=== PATIENT | female | born 1950 | race Caucasian/White ===

== ENCOUNTER 2022-12-19 09:21 | Outpatient (OUT) | payer MEDICARE, SELFPAY ==
--- NOTE | 2022-12-19 09:44 | MM_ITS ---
Patient: YAO PATEL Exam Date: 12/19/2022 : 1950 Gender:F Ordering : DR. YAO GUAJARDO D.O. Admission #: [id number] Family : DR GERA GALEANO M.D. Order #: [id number] CLICK HERE TO VIEW EXAM RADIOLOGY REPORT PROCEDURE: MM TOMOSYNTHESIS SCREENING BI COMPARISON: MG MAMM SCREEN 3D SHARAD CAD, 12/07/2021. MG MAMM SCREEN 3D SHARAD CAD, 12/04/2020. MG MAMM SCREEN SHARAD W CAD, 12/02/2019. MG MAMM SCREEN SHARAD W CAD, 08/01/2010. INDICATIONS: Screening mammogram Z12.31 Calculator Name NCI Breast Cancer Risk Assessment Tool 5 Year Breast Cancer Risk 2.10% Lifetime Breast Cancer Risk 4.90% Personal Breast Cancer No Personal Ovarian Cancer No Treatments None Family Cancers Sister with uterine cancer at age ~60. LOCATION: [facility] BREAST COMPOSITION: Scattered areas fibroglandular density. FINDINGS: DIAGNOSTIC CATEGORY 1--NEGATIVE. RIGHT BREAST: No significant suspicious finding. No significant change has occurred. LEFT BREAST: No significant suspicious finding. No significant change has occurred. RECOMMENDATIONS: ROUTINE MAMMOGRAM AND CLINICAL EVALUATION IN 12 MONTHS. PLEASE NOTE: A NORMAL MAMMOGRAM DOES NOT EXCLUDE THE POSSIBILITY OF BREAST CANCER. A CLINICALLY SUSPICIOUS PALPABLE LUMP SHOULD BE BIOPSIED. Dictated by: Bryan Salguero M.D. on 12/19/2022 at 13:00 Approved by: Bryan Salguero M.D. on 12/19/2022 at 13:01
== END 2022-12-19 09:22 | disposition home or self-care (01) ==
PROVIDERS: PCP Internal Medicine; Visit Provider Obstetrics & Gynecology
DX: Z12.31 Encounter for screening mammogram for malignant neoplasm of breast (principal); Z80.49 Family history of malignant neoplasm of other genital organs
CPT/HCPCS: 77063; 77067

== ENCOUNTER 2022-12-19 09:29 | Outpatient (OUT) | payer MEDICARE, SELFPAY ==
--- NOTE | 2022-12-19 09:41 | MR_ITS ---
[address] [address] Patient Name: YAO PATEL MRN: [id number] date: 1950 Sex: F Assigned Patient Location: MRI Current Patient Location: UNIQUE Accession/Order Number: [id number] Exam Date: 12/19/2022 09:51 Report Date: 12/19/2022 11:58 At the request of: NON-STAFF PHYSICIAN Procedure: MR knee RT wo con EXAMINATION: MR knee RT wo con HISTORY: Internal derangement of right knee M23.91 COMPARISON: No relevant comparison available. TECHNIQUE: A complete multi-planar MRI was performed. 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 CARTILAGE: Diffuse thinning consistent without appreciable defect. BONES: Small periarticular degenerative osteophytes. No subchondral edema or lesion. MCL AND MEDIAL CAPSULE: Normal medial collateral ligament and medial capsule. LATERAL COMPARTMENT LATERAL MENISCUS: There is an undersurface tear involving the posterior horn of the lateral meniscus. CARTILAGE: Thinning with suspected focal defect posteriorly, adjacent the posterior horn meniscal tear. BONES: Several small areas of mild subchondral edema within the posterior aspect of the tibial plateau likely due to overlying cartilage defects. Mild edema within posterior aspect of lateral femoral condyle of uncertain etiology; possible bone bruising. Prominent degenerative osteophytes along the articular margins of the lateral compartment. LCL/POSTEROLAT COMPLEX: Normal lateral collateral ligament, fascicles, lateral capsule and ligaments. ANTERIOR COMPARTMENT PATELLA: Mild subchondral edema involving the medial facet. CARTILAGE: Thinning, but no focal defect. TENDONS: Normal. EFFUSION: Large joint effusion. ACL: Normal appearing ligament. PCL: Normal appearing ligament. MENISCOFEMORAL: Normal meniscofemoral ligaments. OTHER: Large Knutson's cyst. MR/MR knee RT wo con IMPRESSION: 1. Undersurface tear involving posterior horn of lateral meniscus. 2. Multiple small areas of subchondral edema involving lateral tibial plateau suspected to be secondary to overlying cartilage defects. 3. Mild edema within medial facet of patella and posterior aspect of lateral femoral condyle; nonspecific. Possibly sequela of impact injury and bone bruising. 4. Large joint effusion. 5. Large Knutson's cyst. Electronically authenticated by: SEBASTIAN MEEHAN Date: 12/19/2022 11:58
== END 2022-12-19 09:30 | disposition home or self-care (01) ==
LOC: MRI 09:31
PROVIDERS: PCP Internal Medicine
DX: M23.91 Unspecified internal derangement of right knee (principal); Z12.31 Encounter for screening mammogram for malignant neoplasm of breast; Z80.49 Family history of malignant neoplasm of other genital organs; M71.21 Synovial cyst of popliteal space [Baker], right knee
CPT/HCPCS: 73721; 77063; 77067

== ENCOUNTER 2023-08-19 13:15 | Outpatient (OUT) | payer MEDICARE, SELFPAY ==
--- NOTE | 2023-08-19 | CONS_ITS ---
CONSULTATION DATE: 08/19/2023 HISTORY: Her last encounter in the office was on 01/31/2022. She returns today complaining of pain in her hip area bilaterally. She describes it as 3-5/10 burning pain with a sharp component, increased with activities such as standing, walking and performing transitioning maneuvers. She feels most comfortable in the semi-recumbent position. She denies any change in bowel and bladder habits or new sensorimotor changes in the lower extremities. CURRENT MEDICATIONS: She has been using ibuprofen for at least the last eight weeks, with only marginal relief. She has also been using tizanidine 4 mg at h.s. p.r.n. Her ANGELLA on today?s visit was 18%. EXAMINATION: Notable for patient having no clinical radiculopathy or myelopathy involving the lower extremities. She did have dysesthesia and hyperesthesia overlying the distribution of the superior gluteal nerve, occurring bilaterally with associated myofascial spasm of the gluteus medius muscle occurring bilaterally as well. RECOMMENDATIONS: I recommend we proceed with diagnostic bilateral gluteal nerve injection under fluoroscopic guidance. I have gone over the details of the procedure with the patient. All her questions answered. She agrees to proceed with the outlined plan. As part of providing excellent, safe, comprehensive care, the following was completed at our patient's visit: 1. A medication reconciliation and review to ensure accurate knowledge of current/active medications, including asking our patients to inform us about any [id number] medications or herbal remedies/nutritional supplements/alternative remedies. 2. A review to specifically ensure our patients have had annual screening for: elevated body mass index (BMI, see intake chart for exact total), tobacco use, screening for depression, and screening for unhealthy alcohol use. When screening is concerning, patients are provided with education and the specific recommendation to discuss the concerning health issue and treatment options with their primary care provider. DANICA
== END 2023-08-19 13:16 | disposition home or self-care (01) ==
LOC: PM 13:15
PROVIDERS: PCP Internal Medicine; Visit Provider Anesthesiology Pain Medicine
DX: M25.551 Pain in right hip (principal); M25.552 Pain in left hip; M62.838 Other muscle spasm
CPT/HCPCS: G0463

== ENCOUNTER 2023-09-09 08:06 | Day surgery (SDC) | payer MEDICARE, SELFPAY ==
--- OUTSIDE RECORDS SUMMARY | 2023-09-09 08:25 | XMS_ITS | CCD ---
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 Name Role Phone UNKNOWN, PHYSICIAN Referring Unavailable UNKNOWN, PHYSICIAN Primary Care Unavailable CHRIS GARCIA V Admitting Unavailable MOUKARBEL CHRIS Richard Attending Unavailable Staci Esquivel Unavailable ABDIAS ., ASHTYN Admitting Unavailable ABDIAS ., ASHTYN Attending Unavailable ANNA ., THUY WU Consulting Unavailabl e GALEANO, DR BOSS Primary Care Unavailable KLIPPJESUS LUEVANO Consulting Unavailable DEVIN ., DR DARYL Juarez Attending Unavailable BELTRAN ., DR DARYL Juarez Admitting Unavailable FROYLAN, DR BOSS Primary Care Unavailable GALEANO, DR BOSS Consulting Unavailable ABELJULIO SHETTY Consulting Unavailable LAKSHMIPATHY, NARENDRANATH Admitting Unava ilable GALEANO, DR BOSS Primary Care Unavailable LAKSHMIPATHConnor, NARENDYAKOVATH Attending Unava ilable GALEANO, DR BOSS Admitting Unavailable GALEANO, DR BOSS Primary Care Unavailable GALEANO, DR BOSS Consulting Unavailable GALEANO, DR BOSS Attending Unavailable ZIEBER, DR BRYAN Castellon Consulting Unavailable GALEANO, DR BOSS Attending Unavailable GALEANO, DR BOSS Admitting Unavailable GALEANO, DR BOSS Primary Care Unavailable GALEANO, DR BOSS Consulting Unavailable NEFCYKAILEE Consulting Unavailable GALEANO, DR BOSS Attending Unavailable GALEANO, DR BOSS Admitting Unavailable GALEANO, DR BOSS Primary Care Unavailable GALEANO, DR BOSS Consulting Unavailable GALEANO, DR BOSS Admitting Unavailable MISC, DR BEEBE Consulting Unavailable GALEANO, DR BOSS Primary Care Unavailable GALEANO, DR BOSS Attending Unavailable DAVID LEMUS Attending Unavailable MOUKACHRIS DING Attending Unavailable LINDSEY RYAMUNDO Attending Unavailable GERA GALEANO Referring Unavailable APLSKYE HELTON Attending Unavailable CELSA MANZANARES Attending Unavailable APLSKYE HELTON Referring Unavailable EMIGDIO COURTNEY Attending Unavailable APLSKYE HELTON Attending Unavailable LINDSEY RAYMUNDO Attending Unavailable APLING, SKYE B Referring Unavailable Allergies Allergy Classification Reported Allergen(s) Allergy Type Date of Onset Reaction(s) Facility (1 source) oxyCODONE Drug Allergy [facility] Other (1 source) Sulfacetamide Drug Allergy neck swelled, [facility] [place] [facility] Other (2 sources) oxyCODONE Drug Allergy [facility] Repository (2 sources) Sulfonamides (Antibiotic) Drug allergy (disorder) [facility] Rep[facility] (1 source) Sulfonamides (Antibiotic); Translations: [SULFA (SULFONAMIDE ANTIBIOTICS)] Propensity to adverse reactions to drug (disorder) 12-26-19 [facility] Repository Medications Current Medications Medication Drug Class(es) Dates Sig (Normalized) Sig (Original) amoxicillin 875 mg / clavulanate 125 mg oral tablet (1 source) Penicillin-class Antibacterial Start: 02-08-2022 take 1 tablet by mouth every twelve hours Amoxicillin-Pot Clavulanate 875-125 MG 1 tablet Orally every 12 hrs for 10 day(s) Jan, Active Aspirin (1 source) Platelet Aggregation Inhibitor, Nonsteroidal Anti-inflammatory Drug Baby Aspirin Active fexofenadine (1 source) Histamine-1 Receptor Antagonist Carolin Active fluticasone (1 source) Corticosteroid Flonase Active Irbesartan-hydroCHL OROthiazide (1 source) Irbesartan-hydro C HLOROthiazide Active lifitegrast (1 source) Lymphocyte Function-Associated Antigen-1 Antagonist Xiidra Active Metoprolol (1 source) beta-Adrenergic Everett Toprol XL Active oxybutynin (1 source) Cholinergic Muscarinic Antagonist Oxybutynin Active predniSONE 20 mg oral tablet (1 source) Start: 02-08-2022 take 1 tablet by mouth every twelve hours predniSONE 20 MG 1 tablet Orally 2 times a day for 5 day(s) Jan, Active tiZANidine (1 source) Central alpha-2 Adrenergic Agonist tiZANidine HCl Active Problems Active Problems Problem Classification Problem Date Documented Date Episodic/Chronic Cardiac dysrhythmias (2 sources) Palpitations; Translations: [Palpitations] Onset: 08-30-2022 Episodic Essential hypertension (2 sources) Essential (primary) hypertension; Translations: [Essential (primary) hypertension] Onset: 02-25-2022 Chronic Menopausal disorders (4 sources) Other primary ovarian failure; Translations: [OTHER PRIMARY OVARIAN FAILURE] Onset: 12-07-2021 Chronic Other eye disorders (4 sources) Eyelid retraction left upper eyelid; Translations: [EYELID RETRACTION LEFT UPPER EYELID] Onset: 07-24-2022 Episodic Other eye disorders (1 source) Eyelid retraction right upper eyelid; Translations: [EYELID RETRACT RT UPPER EYELID] Onset: 08-02-2022 Episodic Other lower respiratory disease (1 source) Cough; Translations: [Cough] Episodic Other upper respiratory infections (1 source) Acute sinusitis, unspecified Episodic Screening and history of mental health and substance abuse codes (3 sources) Personal history of nicotine dependence; Translations: [PERSONAL HISTORY OF NICOTINE DEPEND] Onset: 04-09-2022 Episodic Spondylosis; intervertebral disc disorders; other back problems (4 sources) Other spondylosis with radiculopathy, lumbar region; Translations: [OTH SPONDYLS RADICULOPATHY LUMB RGN] Onset: 01-31-2022 Chronic Transient cerebral ischemia (4 sources) Transient cerebral ischemic attack, unspecified; Translations: [TRANS CERBRAL ISCHEMIC ATTACK UNS] Onset: 09-07-2021 Chronic Past or Other Problems Problem Classification Problem Date Documented Da te Episodic/Chronic E Codes: Cut/pierceb (1 source) Contact with knife, initial encounter; Translations: [CONTACT WITH KNIFE INITIAL ENC] Onset: 04-09-2022 Episodic Heart valve disorders (4 sources) Cardiac murmur, unspecified; Translations: [CARDIAC MURMUR UNSPECIFIED] Onset: 09-05-2021 Episodic Immunizations and screening for infectious disease (1 source) Encounter for immunization; Translations: [ENCOUNTER FOR IMMUNIZATION] Onset: 04-09-2022 Episodic Open wounds of extremities (4 sources) Laceration without foreign body of left middle finger without damage to nail, initial encounter; Translations: [LAC W/O FB LT MF W/O DMG NAIL INIT] Onset: 04-05-2022 Episodic Other aftercare (1 source) Other termite inspector (current) drug therapy; Translations: [OTH FCI CURRENT DRUG THERAPY] Onset: 04-09-2022 Episodic Other bone disease and musculoskeletal deformities (1 source) Other specified disorders of bone density and structure, unspecified site; Translations: [OTH D/O BONE DEN STRUCT UNS SITE] Onset: 12-11-2021 Episodic Other screening for suspected conditions (not mental disorders or infectious disease) (1 source) Encounter for screening mammogram for malignant neoplasm of breast; Translations: [ENC SCR MAMMO MALIG NEOPLASM BREAST] Onset: 12-11-2021 Episodic Residual codes; unclassified (1 source) Family history of malignant neoplasm of other genital organs; Translations: [FAM HX MALIG NEOPLSM OTH GENIT ORGN] Onset: 12-11-2021 Episodic Spondylosis; intervertebral disc disorders; other back problems (1 source) Intervertebral disc disorders with radiculopathy, lumbar region; Translations: [IV DISC D/O W/RADICULOPATHY LUMB] Onset: 02-02-2022 Episodic Unclassified (1 source) Cough R05.9 Results Test Name Value Interpretation Reference Range Facility Office Visiton 08-30-2022 Follow-up visit [id number] AbimbolaTeodora B 1950 F Date Provider Department Center 08/30/2022 DAVID RODRIGUEZ [facility] Family History Problem Relation Age of Onset Other Mother Hypertrophic cardiomyopathy Sister Stroke Sister Other Sister Hypertrophic cardiomyopathy Brother Family Status - Relation Status Age at Mother Sister Brother Level of Service:47475 [place] OFFICE/OUTPATIENT ESTABLISHED MOD MDM 30-39 MIN Reason for Visit and Comments: Hypertension [395380] Palpitations [118407] Normal [facility] FREE T3on 07-24-2022 FREE T3 2.66 pg/mlL Normal 2.18-3.98 [facility] Comment on above: Performed By: #### T SH, FT3 #### [facility] [address] [address] [address] Adolph Clinton FREE T4on 07-24-2022 Free T4 [Mass/Vol] 0.85 ng/dL Normal 0.76-1.46 [facility] Comment on above: Performed By: #### F T4 #### [facility] [address] [place] [address] Dr. Adolph Clinton TSHon 07-24-2022 TSH 2.124 uIU/mL Normal 0.358-3.740 [facility] Comment on above: Performed By: #### T SH, FT3 #### [facility] [address] [address] [address] Adolph Clinton XR FINGER MIN 2 VIEWSon 03-21 XR FINGER MIN 2 VIEWS EXAM: XR FINGER MIN 2 VIEWS HISTORY: Laceration of finger COMPARISON: None. TECHNIQUE: 2 views FINDINGS: IMPRESSION: Soft tissue irregularity of the distal aspect of the third digit most pronounced of volar. No fracture, dislocation, subluxation or osseous lesion. No visualized radiodense foreign body. Age-related changes of the third DIP joint. The visualized IP joints and metacarpophalangeal joints are unremarkable. Electronically authenticated by: JESUS FELIZ Date: 2022-04-05 19:19 Normal [facility] Follow-Upon 02-25-2022 Follow-Up [id number] Teodora Daily 1950 F Date Provider Department Center 02/25/2022 [facility] History Problem Relation Age of Onset Other Mother Hypertrophic cardiomyopathy Sister Stroke Sister Other Sister Hypertrophic cardiomyopathy Brother Family Status - Relation Status Age at Mother Sister Brother Level of Service:48295 [place] OFFICE/OUTPATIENT ESTABLISHED LOW MDM 20-29 MIN Reason for Visit and Comments: Hypertension [773457] Palpitations [178419] Normal [facility] COVID Quick Testingon 2021 Result Negative [employer] Other Quick Fluon 02-08-2022 FLUAV Ab CF (S) [Titer] Negative [employer] Other FLUBV Ab CF (S) [Titer] Negative [employer] Other Orders Onlyon 12-25-2021 Orders Only [id number] Teodora Daily 1950 F Date Provider Department Center 12/25/2021 ARSENIO BOSTON MATTHEW [facility] Family History Problem Relation Age of Onset Other Mother Hypertrophic cardiomyopathy Sister Stroke Sister Other Sister Hypertrophic cardiomyopathy Brother Family Status - Relation Status Age at Mother Sister Brother Normal [facility] MG MAMM SCREEN 3D SHARAD CADon 12-07-2021 MG MAMM SCREEN 3D SHARAD CAD Patient: TEODORA DAILY Exam Date: 12/07/2021 : 1950 Gender:F Ordering : DR GERA GALEANO M.D. Admission #: [id number] Family : DR. TEODORA GUAJARDO D.O. Order #: [id number] CLICK HERE TO VIEW EXAM RADIOLOGY REPORT PROCEDURE: MAMMOGRAM SCREENING 3D BILATERAL CAD COMPARISON: MG MAMM SCREEN 3D SHARAD CAD, 12/04/2020. MG MAMM SCREEN SHARAD W CAD, 12/02/2019. INDICATIONS: Screening mammography Calculator Name NCI Breast Cancer Risk Assessment Tool 5 Year Breast Cancer Risk 2.10% Lifetime Breast Cancer Risk 5.20% Personal Breast Cancer No Personal Ovarian Cancer No Treatments None Family Cancers Sister with uterine cancer at age 60. LOCATION: [facility] BREAST COMPOSITION: Scattered areas fibroglandular density. FINDINGS: DIAGNOSTIC CATEGORY 1--NEGATIVE. RIGHT BREAST: No significant suspicious finding. No significant change has occurred. LEFT BREAST: No significant suspicious finding. No significant change has occurred. RECOMMENDATIONS: ROUTINE MAMMOGRAM AND CLINICAL EVALUATION IN 12 MONTHS. PLEASE NOTE: A NORMAL MAMMOGRAM DOES NOT EXCLUDE THE POSSIBILITY OF BREAST CANCER. A CLINICALLY SUSPICIOUS PALPABLE LUMP SHOULD BE BIOPSIED. Dictated by: Bryan Salguero M.D. on 12/07/2021 at 12:10 Approved by: Bryan Salguero M.D. on 12/07/2021 at 12:13 [facility] XR DEXA BONE DENSITYon 12-07 XR DEXA BONE DENSITY EXAMINATION: XR DEXA BONE DENSITY, 12/07/2021 9:39 AM EDT HISTORY: Primary ovarian failure COMPARISON: None. TECHNIQUE: Dual-energy X-ray absorptiometry (DEXA) bone density study performed for the axial skeleton. FINDINGS: SPINE ANALYSIS: Average bone mineral density is 1.167 g/cm2. T-score (standard deviation relative to young adult mean): -0.3 . -0.1% change since prior study. HIP ANALYSIS: Lowest bone mineral density is within the right femoral neck, 0.26 g/cm2. T-score (standard deviation relative to young adult mean): -1.5 . +6.4% change since prior study. IMPRESSION: World [employer] Organization Classification: Osteopenia - Moderate Fracture Risk Electronically authenticated by: BRYAN SALGUERO Date: 2021-12-07 15:10 Normal [facility] MRI CARDIAC W WO CONTRASTon 10-16-2021 MRI CARDIAC W WO CONTRAST [facility] Department of Radiology [address] [place] [id number] ===== Patient Name: TEODORA DAILY : 1950 Sex: F Age: Race: White Pt. Location: 30 Patient Status: D Ordered Date: 09/25/2021 8:10:00 AM Completed Date: 10/16/2021 12:33 PM Requesting Provider: CHRIS GARCIA V Attending Provider: Report Copy To: Signs & Symptoms: I51.7 Cardiomegaly I10 History: Luz, L hip replacement Comments: Exam: MRI CARDIAC W WO CONTRAST ===== MRI CARDIAC W WO CONTRAST 10/16/2021 12:33 PM SIGNS AND SYMPTOMS: I51.7 Cardiomegaly I10 TECHNOLOGIST COMMENTS: cardiomegaly QUESTION FOR THE RADIOLOGIST: PROTOCOL: Additional images were performed in the following sequences: CONTRAST: Contrast: CLARISCAN .5mmol, 40 milliliter, Intravenous COMPARISON: No prior FINDINGS: Morphology: The heart is normal in size. Right ventricle, left ventricle, left atrium and right atrium appear in size. Anteroseptal wall left lateral ventricle measures 8 mm. Inferolateral left ventricle measures 9 mm. Mid ventricle end diastole. On the 4 chamber view there was an area of lateral wall of the right ventricular myocardium which is felt to be possibly suspicious for myocardial noncompaction. However, the left ventricle is nondilated demonstrates normal function, and non-compacted 2 compact myocardial ratio is less than 2. Right ventricle are anterior free wall measures 4 mm at the mid ventricle. No pericardial effusion. Function: Left ventricular ejection fraction is calculated to be 72.3%. End-diastolic volume 105.1 mL End systolic volume 29.1 mL Stroke volume 76.0 mL The visibly there is contractility of the left ventricular myocardium. Valves: Mitral valve leaflets appear normal in thickness no significant regurgitation. Aortic valve leaflets do not appear thickened. No definite aortic regurgitation or stenosis. Myocardial enhancement: No abnormal delayed myocardial enhancement Additional findings: No aortic aneurysm. IMPRESSION: * Normal left ejection fraction. Normal cardiac wall motion. * No evidence of delayed myocardial enhancement * On the 4 chamber view there was an area of lateral wall of the right ventricular myocardium which is felt to be possibly suspicious for myocardial noncompaction. However, the left ventricle is nondilated, demonstrates normal function, and non-compacted - compact myocardial ratio is less than 2. Electronically signed: Kane Solomon. Transcribed by: [email or web address], User Resident: Electronically Signed by: KANE SOLOMON @ 10/18/2021 02:11 PM Normal [facility] CREATININEon 09-07-2021 Creatinine [Mass/Vol] 0.77 mg/dL Normal 0.55-1.02 [facility] Comment on above: Performed By: #### C IDALIA #### [facility] [address] [place] [address] Dr. Adolph Clinton EGFR-AF JAPANESE >60 Normal >=60 [facility] Comment on above: Performed By: #### C IDALIA #### [facility] [address] [address] [address] Adolph Clinton EGFR-NON AF JAPANESE >60 Normal >=60 [facility] Comment on above: Performed By: #### C IDALIA #### [facility] [address] [place] [address] HEAD WO W CONon 2 CT HEAD WO W CON EXAMINATION: CT HEAD WO W CON HISTORY: Transient cerebral ischemia COMPARISON: None. TECHNIQUE: Multiple computed tomograms of the head were obtained with and without intravenous contrast enhancement. 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 Sagittal and coronal reconstructions were obtained. Dose reduction techniques were achieved by using automated exposure control and/or adjustment of mA and/or kV according to patient size and/or use of iterative reconstruction technique. FINDINGS: The ventricles are not enlarged, the lateral ventricles are symmetric and the third ventricles in the midline. The sylvian fissures and cortical sulci are unremarkable. There is no evidence of an intracranial hemorrhage, mass lesion or apparent acute infarct. Overall, no enhancing abnormality is identified. Benign calcification is seen in the pineal complex. Mild frontal hyperostosis is noted. The cerebellum and visualized brainstem are intact. Some mucosal thickening is seen in the right side of the sphenoid sinus with small air bubbles. The paranasal sinuses are otherwise relatively clear. There is no apparent skull fracture. The vasculature about the [place] appears grossly intact. IMPRESSION: There is no evidence of an intracranial hemorrhage, mass lesion or apparent acute infarct. No enhancing abnormality is identified. Benign calcifications are present. Frontal hyperostosis is noted. There is an element of acute sinusitis involving the right side of the sphenoid sinus. The sinuses are otherwise relatively clear throughout as visualized. Electronically authenticated by: KAILEE GARCIA Date: 2021-09-07 13:44 Normal [facility] ECHOCARDIO M/2D COMPLETEon 0 09-05-2021 ECHOCARDIO M/2D COMPLETE Patient: TEODORA DAILY Exam Date: 09/05/2021 : 1950 Gender:F Ordering : DR GERA GALEANO M.D. Admission #: [id number] Family : Order #: [id number] CLICK HERE TO VIEW EXAM ECHOCARDIOGRAM REPORT PROCEDURE: CARDIO PULMONARY ECHOCARDIO M/2D COMP INDICATIONS: Cardiac murmur, hypertension COMPARISON: None. DESCRIPTION: COMPLETE ECHOCARDIOGRAM Real-time transthoracic echocardiography with 2D, M-mode, spectral and color flow Doppler performed. QUALITY: Technical quality was adequate. LEFT VENTRICLE: Normal chamber size. Moderate concentric left ventricular hypertrophy. No regional wall motion abnormalities. There is flow acceleration in the outflow tract related to hyperdynamic contractility of the ventricle. LV EF: Hyperdynamic left ventricular ejection fraction, (75-80%). DIASTOLIC: Normal diastolic function. ATRIAL SEPTUM: Visually appears intact. LEFT ATRIUM: Normal chamber size. RIGHT ATRIUM: Normal chamber size. RIGHT VENTRICLE: Normal chamber size. Normal right ventricular systolic function. TRICUSPID VALVE: Normal mobility and thickness. No stenosis with trivial regurgitation. No evidence of pulmonary hypertension. RVSP is 23 mmHg MITRAL VALVE: Normal mobility and thickness. No evidence of mitral valve stenosis. Mild mitral annular calcification. No mitral regurgitation. AORTIC VALVE: Normal trileaflet appearance. Thickened aortic valve. Normal leaflet mobility. No evidence of aortic valve stenosis. No aortic regurgitation. AORTIC ROOT: Normal diameter and appearance. PULMONIC VALVE: Not well visualized. No stenosis. No regurgitation. PERICARDIUM: No evidence of pericardial effusion. IVC: Collapses with inspirations. IVC is normal in size. PLEURA: CONCLUSION: 1. Moderate concentric left ventricular hypertrophy with hyperdynamic systolic function. LVEF is 75 to 80%. There is acceleration of flow in the left ventricular outflow tract related to hyperdynamic contractility of the ventricle. 2. Normal right ventricular systolic function. 3. Normal diastolic function. 4. No significant valvular dysfunction. 5. No pericardial effusion. Adult Echocardiography Procedure Report Left Ventricle LVEDD (3.7 - 5.6 cm): 3.26 cm LVESD (2.2 - 4.0 cm): 2.32 cm LVIVS thickness (0.6 - 1.2 cm): 1.34 cm LVPW thickness (0.5 - 1.0 cm): 1.24 cm e': 10.10 cm/s E - e': 8.80 LVOT Area (cm2): 3.80 cm2 LVOT Diameter 2.20 cm Left Ventricular Ejection Fraction: 75-80 % Left Atrium LA Volume Index (2D A2C): 24.60 ml/m2 Left Atrium Systolic Dimension: 3.20 cm Left Atrium Systolic Area(A2C): 16.90 cm2 Left Atrium Systolic Area(A4C): 12.70 cm2 Left Atrium Systolic Volume(A2C): 19082 mm3 Left Atrium Systolic Volume(A4C): 72262 mm3 Mitral Valve MV E to A Ratio: 0.90 Mitral Valve A-Wave Peak Velocity: 102.00 cm/s Mitral Valve E-Wave Peak Velocity: 89.30 cm/s Deceleration Time: 267 ms Right Ventricle Aorta AO Root Diam: 3.40 cm Aortic Valve Peak Velocity (Antegrade Flow): 183.00 cm/s AoV Area (Peak Michael): 2.90 cm2 AoV Area (VTI): 3.20 cm2 Peak Velocity(Antegrade Flow): 185.00 cm/s Peak Gradient(Antegrade Flow): 14 mm[Hg] Mean Velocity(Antegrade Flow): 127.00 cm/s Mean Gradient(Antegrade Flow): 7 mm[Hg], 7 mm[Hg] Velocity Time Integral: 38.50 cm Tricuspid Valve Pulmonic Valve Peak Velocity: 85.80 cm/s Peak Gradient: 3 mm[Hg] Right Atrium Dictated by: Chris Garcia M.D. on 09/05/2021 at 20:04 Approved by: Chris Garcia M.D. on 09/05/2021 at 20:08 Normal [facility] Q - DEJUAN SCREEN IFA W/RFL TIT ER IFAon 05-10-2021 DEJUAN SCREEN, IFA Negative Normal NEGATIVE [facility] Comment on above: Order Comment: [facility] Testing performed at: [facility], [employer] [facility], [address] [place] [address], [address] [place] [address], [id number], Drafter Electronic: Pedro Asencio MD [facility] Collection Date/Time: [facility] Results Received Date/Time: [facility] Reported Date/Time: Result Comment: DEJUAN IFA is a first line screen for detecting the presence of up to approximately 150 autoantibodies in various autoimmune diseases. A negative DEJUAN IFA result suggests an DEJUAN-associated autoimmune disease is not present at this time, but is not definitive. If there is high clinical suspicion for Sjogren's syndrome, testing for anti-SS-A/Ro antibody should be considered. Anti-Steffi-1 antibody should be considered for clinically suspected inflammatory myopathies. AC-0: Negative International Consensus on DEJUAN Patterns (https://doi.org/10.1515/ksra-8928-2625) For additional information, please refer to http://education.AskYou.Extenda-Dent/faq/XLD365 (This link is being provided for informational/ educational purposes only.) Performed By: #### 7 [id number], [id number] #### [facility] [address] [place] [address] Q - SJOGREN'S ABS (SS-A,SS-B )on 01-20-2022 SJOGREN'S ANTIBODY (SS-A) <1.0 NEG Normal <1.0 NEG [facility] [employer] Comment on above: Order Comment: [facility] Testing performed at: [employer] [facility], [address] [place] [address], [address] [place] [address], [address] [place] [address], Drafter Electronic: Pedro Asencio MD [facility] Collection Date/Time: [facility] Results Received Date/Time: [facility] Reported Date/Time: Performed By: #### 7 [id number], 249X #### [facility] [address] [place] [address] SJOGREN'S ANTIBODY (SS-B) <1.0 NEG Normal <1.0 NEG [facility] [employer] Comment on above: Order Comment: [facility] Testing performed at: [employer] [facility], [address] [place] [address], [address] [place] [address], [address] [place] [address], Drafter Electronic: Pedro Asencio MD [facility] Collection Date/Time: [facility] Results Received Date/Time: [facility] Reported Date/Time: Performed By: #### 7 [id number], [id number] #### [facility] [address] [place] [address] Q - DEJUAN CASC [id number] CHROMATIN (NUCLEOSOMAL) ANTIBODY <1.0 NEG Normal <1.0 NEG [facility] [employer] Comment on above: Order Comment: [facility] Testing performed at: [employer] [facility], [address] [place] [address], [address] [place] [address], [address] [place] [address], Drafter Electronic: Pedro Asencio MD [facility] Date/Time: [id number] [facility] Results Received Date/Time: [facility] Reported Date/Time: Result Comment: ANTIBODY PREVALENCE IN TIER 1 Double stranded DNA (dsDNA) antibodies are present in 57% to 62% systemic lupus erythematosus (SLE), 10% to 43% polymyositis, 11% to 20% Sjogren's syndrome, 8% systemic sclerosis (scleroderma) and 0% to 8% mixed connective tissue disease (MCTD). Chromatin antibody is present in >80% MCTD, 37% to 73% SLE, 14% systemic sclerosis, 12% Sjogren's syndrome and 8% polymyositis. Ribonucleoprotein (NEEDLEWORKER) antibodies are to NEEDLEWORKER A and/or NEEDLEWORKER 68kD proteins; antibodies to one or both are present in >80% MCTD, 22% to 48% SLE, 14% systemic sclerosis, 12% Sjogren's and 8% polymyositis. Sm/NEEDLEWORKER antibodies are directed to epitopes formed in a complex of Sm and NEEDLEWORKER; antibodies to the Sm/NEEDLEWORKER complex are present in 54% to 94% MCTD, 30% SLE, 4% systemic sclerosis, and 9% Sjogren's and polymyositis. Sm antibody is present in 20% to 30% SLE, 8% MCTD, 10% polymyositis, 0% systemic sclerosis and 4% Sjogren's syndrome. Double stranded DNA, Chromatin, Ribonucleoprotein, Sm/NEEDLEWORKER complex and Sm antibodies are present in <2% of normal blood donors. The [place] does not rule out autoimmune disease characterized by other autoantibody specificities such as rheumatoid arthritis, autoimmune hepatitis, primary biliary cholangitis, autoimmune thyroiditis, Kendall's disease, pernicious anemia, autoimmune neuropathies, vasculitis, celiac disease and bullous disease. Please contact your local [facility] if you are interested in additional testing. Performed By: #### % IN7, % #### [facility] Default [address] [place] [address] DNA (DS) ANTIBODY <1 Normal [facility] Comment on above: Order Comment: [facility] Testing performed at: [facility], [address] [place] [address], [address] [place], [phone], Drafter Electronic: Pedro Asencio MD [facility] Date/Time: [id number] [facility] Results Received Date/Time: [facility] Reported Date/Time: Result Comment: IU/m L Interpretation < or = 4 Negative 5-9 Indeterminate > or = 10 Positive Performed By: #### % IN7, % #### [facility] [address] [place] [address] NEEDLEWORKER ANTIBODY 1.0 POS Abnormal <1.0 NEG [facility] [employer] Comment on above: Order Comment: [facility] Testing performed at: [facility], [facility], [address] [place] [address], [address] [place] [address], [address] [place] [address], Drafter Electronic: Pedro Asencio MD [facility] Date/Time: [facility] Results Received Date/Time: [facility] Reported Date/Time: Performed By: #### % IN7, % #### [facility] [address] [place] [address] SM ANTIBODY <1.0 NEG Normal <1.0 NEG [facility] [employer] Comment on above: Order Comment: [facility] Testing performed at: [employer] [facility], [address] [place] [address], [address] [place] [address], [address] [place] [address], Drafter Electronic: Pedro Asencio MD [facility] Date/Time: [facility] Results Received Date/Time: [facility] Reported Date/Time: Performed By: #### % IN7, % #### [facility] [address] [place] [address] SM/NEEDLEWORKER ANTIBODY <1.0 NEG Normal <1.0 NEG [facility] [employer] Comment on above: Order Comment: [facility] Testing performed at: [employer] [facility], [address] [place] [address], [address] [place] [address], [address] [place] [address], Drafter Electronic: Pedro Asencio MD [facility] Date/Time: [facility] Results Received Date/Time: [facility] Reported Date/Time: Performed By: #### % IN7, % #### [facility] [address] [place] [address] Q - DEJUAN MULTIPLEX W/ REFLEX TO 11 ANTIBODY CASCADEon 05-01-2021 ANACHOICE(R) SCREEN Positive Abnormal NEGATIVE [facility] [employer] Comment on above: Order Comment: [facility] performed at: [employer] [facility], [address] , [address] [place] [address], [phone], Drafter Electronic: Pedro Asencio MD [facility] Date/Time: [facility] Results Received Date/Time: [facility] Reported Date/Time: Result Comment: A po sitive DEJUAN, Multiplex reflexes to the 3 Tiered Multiplex 11 Antibody [place]. Testing in the [place] stops at the first positive result and does not preclude additional positive results. Further laboratory testing may be considered if clinically indicated. For additional information, please refer to http://education.[employer]/faq/EHX276 (This link is being provided for informational/ educational purposes only.) Performed By: #### % IN7, % #### [facility] [address] [place] [address] Q - NEEDLEWORKER INTERPon 05-01-2021 INTERPRETATION SEE NOTE Normal [facility] [employer] Comment on above: Order Comment: [facility] Testing performed at: [facility], [facility], [address] , [address] [place] [address], [phone], Drafter Electronic: Pedro Asencio MD [facility] Date/Time: [facility] Results Received Date/Time: [facility] Reported Date/Time: Result Comment: NEEDLEWORKER antibody is found in patients with mixed connective tissue disease in high titer. This antibody may also be seen in systemic lupus erythematosus and other connective tissue diseases. A positive result at this stage of testing stops further testing, and does not preclude additional positive antibodies. Clinical correlation is required to assess the need for testing additional analytes. Performed By: #### % IN7, % #### [facility] [address] [place] [address] Vital Signs Date Time Vital Sign Value Performing Clinician Facility 02-08-2022 13:05-0400 Body height 158.75 cm Staci Esquivel Other [facility] Other 02-08-2022 13:05-0400 Body mass index (BMI) [Ratio] 33.29 kg/m2 Staci Esquivel Other [facility] Other 02-08-2022 13:05-0400 Body temperature 101 [degF] Staci Esquivel Other [facility] Other 02-08-2022 13:05-0400 Body weight 83.92 kg Staci Esquivel Other [facility] Other 02-08-2022 13:05-0400 Respiratory rate 18 /min Staci Esquivel Other [facility] Other 02-08-2022 13:05-0400 SaO2% (BldA) [Mass fraction] 95 % Staci Esquivel Other [facility] Other Encounters Encounter Date Encounter Type Care Provider Facility Start: 08-20-2023 End: 08-21-2023 ambulatory SKYE Lopez [facility] Not Available Start: 07-14-2023 End: 07-14-2023 ambulatory EMIGDIO COURTNEY Not Available Start: 06-09-2023 End: 06-10-2023 ambulatory SKYE B APLING Not Available Start: 05-19-2023 End: 05-19-2023 ambulatory LINDSEY H TIMMIS Not Available Start: 03-19-2023 End: 03-19-2023 ambulatory LINDSEY H TIMMIS Not Available Start: 03-18-2023 End: 03-18-2023 ambulatory CELSA MANZANARES Not Available Start: 08-30-2022 End: 08-30-2022 ambulatory DAVID LEMUS [facility] Start: 07-24-2022 End: 07-25-[address] GERA GALEANO Facility:[facility] Start: 06-25-2022 ambulatory OVIDIO LANDRUM Facility:[facility] Start: 04-05-2022 End: 04-05-2022 ambulatory ASHTYN Rutledge Facility:[facility] Start: 02-25-2022 End: 02-25-2022 ambulatory [facility] Start: 02-08-2022 End: 02-08-2022 ambulatory Staci Esquivel Other [facility] Other Start: 02-08-2022 Office outpatient ne w 20 minutes Staci Esquivel [facility] Start: 01-31-2022 End: 02-01-[address] DARYL BELTRAN . Facility:[facility] Start: 12-07-2021 End: 12-08-[address] GERA GALEANO Facility:[facility] Start: 10-16-2021 End: 10-17-2021 ambulatory PHYSICIAN UNKNOWN Facility:[facility] Start: 09-07-2021 End: 09-08-[address] GERA GALEANO Facility:[facility] Start: 09-05-2021 End: 09-06-[address] GERA GALEANO Facility:[facility] Payers Date Payer Category Payer Private Health Insurance [id number] 1950 Unknown [id number] 2.16.8 [id number] 1950 Unknown [id number] 2.16.84 [id number] 1950 Unknown [id number] 2.16.84 0.1.841607.3.579.2.593 1948 Unknown [id number] 2.16.84 0.1.106027.3.579.2.593 1948 Unknown [id number] 2.16.84 0.1.376872.3.579.2.593 1948 Unknown [id number] 2.16.84 0.1.742060.3.579.2.593 1948 Unknown [id number] 2.16.84 0.1.898524.3.579.2.593 1948 Unknown [id number] 2.16.84 0.1.872420.3.579.2.593 1948 Unknown [id number] 2.16.84 0.1.377635.3.579.2.1258 1948 Unknown [id number] 2.16.84 0.1.877066.3.579.2.1258 1948 Unknown [id number] 2.16.84 0.1.138402.3.579.2.1258 1948 Unknown [id number] 2.16.84 0.1.813671.3.579.2.1258 1948 Unknown [id number] 2.16.84 0.1.185429.3.579.2.1258 1948 Unknown [id number] 2.16.84 0.1.482311.3.579.2.1258 1948 Unknown [id number] 2.16.840 .1.483313.3.579.2.1258 1948 Unknown [id number] 2.16.840 .[id number] Social History Date Type Detail Facility Sex Assigned At [facility] Other Progress note 08-30-2022 Note Date & Type Note Facility 08-30-2022 Note Hypertension is 127/ 72 on repeat b/p per provider- and well controlled. Continue irbesartan 75 mg daily and metoprolol 25 daily States that with 150 mg irbesartan dropped her b/p in the mornings to SBP 60 [facility] Progress note 08-30-2022 Note Date & Type Note Facility 08-30-2022 Note stable [facility] Progress note 08-30-2022 Note Date & Type Note Facility 08-30-2022 Note Continue metoprolol Stable and pt without c/o palpitations [facility] Progress note 08-30-2022 Note Date & Type Note Facility 08-30-2022 Note Patient here for 6 m o follow up hypertension and palpitations. Her social media analyst suggested she stop the hydrochlorothiazide due to dry eye. So she is now taking irbesartan by itself. Denies chest pain and palpitations. SCHOFIELD remains unchanged. Review of Systems Cardiovascular: Positive for dyspnea on exertion and leg swelling (intermittent). Musculoskeletal: Positive for back pain. All other systems reviewed and are negative. [facility] Progress note 08-30-2022 Note Date & Type Note Facility 08-30-2022 Note [facility] PROGR ESS NOTE HPI: Teodora Daily is a 72 y.o. female here for routine f/U for HTN and palpitations. Recently PCP stopped hydrochlorothiazide per opthamologist request r/t Dry eyes, and irbesartan was decreased in half to 75mg daily r/t hypotension. States that this week she has seen 3 different providers and each visit b/p was 130/80 or less. Review of Systems Constitutional: Negative. Respiratory: Negative. Cardiovascular: Negative. Neurological: Negative. All other systems reviewed and are negative. Visit Vitals BP 147/74 (BP Location: Left arm, Patient Position: Sitting) Pulse 64 Ht 1.6 m (5' 3 ) Wt 85.3 kg (188 lb) SpO2 94% BMI 33.30 kg/m??? Smoking Status Former BSA 1.95 m??? Allergies Allergen Reactions Sulfa (Sulfonamide Antibiotics) Medications: Current Outpatient Medications on File Prior to Visit Medication Sig Dispense Refill aspirin 81 mg chewable tablet Chew 1 tablet twice a day by oral route. irbesartan (Avapro) 150 mg tablet Take 75 mg by mouth in the morning. metoprolol succinate XL (Toprol-XL) 25 mg 24 hr tablet Take 1 tablet by mouth in the morning. tiZANidine (Zanaflex) 4 mg tablet TAKE 1 TABLET BY MOUTH EVERYDAY AT BEDTIME NEEDED [DISCONTINUED] irbesartan-hydrochlorothiazide (Avalide) 150-12.5 mg tablet Take 0.5 tablets every day by oral route for 90 days. [DISCONTINUED] oxybutynin XL (Ditropan-XL) 5 mg 24 hr tablet Take 1 tablet by mouth in the morning. No current facility-administered medications on file prior to visit. Physical Exam: Constitutional: Appearance: Normal appearance. Without apparent distress, obese HENT: Head: Normocephalic and atraumatic. Nose: Nose normal. Mouth/Throat: Mouth: Mucous membranes are moist. Eyes: Extraocular Movements: Extraocular movements intact. Conjunctiva/sclera: Conjunctivae normal. Neck: Vascular: No JVD. Cardiovascular: Rate and Rhythm: Normal rate and regular rhythm. Pulses: Dorsalis pedis pulses are 3 on the right side and 3on the left side. Posterior tibial pulses are 3 on the right side and 3 on the left side. Heart sounds: Normal heart sounds, S1 normal and S2 normal. Pulmonary: Effort: Pulmonary effort is normal. Breath sounds: Normal breath sounds. Abdominal: General: Bowel sounds are normal. Palpations: Abdomen is soft. Musculoskeletal: General: Normal range of motion. Cervical back: Normal range of motion. Right lower leg: No edema. Left lower leg: No edema. Skin: General: Skin is warm and dry. Capillary Refill: Capillary refill takes less than 2 seconds. Neurological: General: No focal deficit present. Mental Status: She is alert and oriented to person, place, and time. Psychiatric: Mood and Affect: Mood normal. Behavior: Behavior normal. Thought Content: Thought content normal. Judgment: Judgment normal. Labs: Reviewed 08/22/22 Renal function normal Liver function normal TSH normal Chol- 181, HDL 55, Trig 219, LDL 94- stabls Last lab values have been reviewed CV Testing: No echocardiogram results found for the past 12 months Assessment/Plan: Intermittent palpitations Continue metoprolol Stable and pt without c/o palpitations Former smoker stable Primary hypertension Hypertension is 127/72 on repeat b/p per provider- and well controlled. Continue irbesartan 75 mg daily and metoprolol 25 daily States that with 150 mg irbesartan dropped her b/p in the mornings to SBP 60 RTC 1 year or earlier if needed [facility] Progress note 02-25-2022 Note Date & Type Note Facility 02-25-2022 Note Patient here for fol [facility] up cardiac MRI, event monitor, and genetic testing. Has not noticed palpitations since starting metoprolol. Denies chest pain. Been dealing with sinus infection lately. Cliff Daily is a 72 y.o. year old female patient being seen for Hypertension and Palpitations Patient Active Problem List Diagnosis Primary hypertension Palpitations Social History Tobacco Use Smoking status: Former Types: Cigarettes Smokeless tobacco: Never HPI Teodora is seen in follow up. She was seen initially on 09/24/2021 as a new patient, referred from Dr. Goodman's office due to abnormal echocardiogram. She has prior history of mild hypertension, currently on irbesartan hydrochlorothiazide half tablet twice daily. She has a history of possible hypertrophic cardiomyopathy and her family history is significant for cardiomyopathy. 2 of her sisters were diagnosed with IHSS years ago and had pacemakers. One of them is . She has a nephew that has a pacemaker/ICD. She has shortness of breath on exertion, NYHA class II-III. No angina. She has occasional palpitations. She has not had syncope. In 2013 she underwent a cardiac MRI was reportedly showing some hypertrophy but no other significant findings. Her recent echocardiogram showed a hyperdynamic LV systolic function with moderate concentric hypertrophy and acceleration of flow in the left ventricular outflow tract. I then proceeded with the following investigation: A 3day Holter monitor that showed a short run of atrial tachycardia following which an event monitor was done for 30 days showing no significant arrhythmias. Cardiac MRI was performed but did not show any hypertrophy. There was possible suspicion of noncompaction in a small segment of the heart however it did not reach criteria. Genetic testing did not show any significant genetic abnormality that is suggestive of hypertrophic cardiomyopathy. 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 Today she reports that she has been feeling better on added metoprolol. She has good blood pressure usually but her blood pressure is mildly elevated today. She says that this is unusual for her. she denies chest pain, she has mild shortness of breath on exertion, she denies palpitations, dizziness, syncope and leg edemia. she has good exercise tolerance. There is no claudication. Review of Systems Cardiovascular: Positive for dyspnea on exertion. Objective Visit Vitals BP (P) 153/83 (BP Location: Left arm, Patient Position: Sitting) Pulse 61 Ht 1.6 m (5' 3 ) Wt 83.9 kg (185 lb) SpO2 96% BMI 32.77 kg/m??? Smoking Status Former BSA 1.93 m??? Physical Exam Constitutional: Appearance: She is well-developed. She is not ill-appearing. HENT: Head: Normocephalic and atraumatic. Nose: Nose normal. Eyes: General: No scleral icterus. Pupils: Pupils are equal, round, and reactive to light. Neck: Thyroid: No thyromegaly. Vascular: No JVD. Cardiovascular: Rate and Rhythm: Normal rate and regular rhythm. Heart sounds: Normal heart sounds. No murmur heard. No friction rub. No gallop. Pulmonary: Effort: Pulmonary effort is normal. No respiratory distress. Breath sounds: Normal breath sounds. No wheezing or rales. Chest: Chest wall: No tenderness. Abdominal: General: Bowel sounds are normal. There is no distension. Palpations: Abdomen is soft. Tenderness: There is no abdominal tenderness. Musculoskeletal: General: No swelling. Cervical back: Neck supple. Skin: General: Skin is warm and dry. Neurological: General: No focal deficit present. Mental Status: She is alert and oriented to person, place, and time. Psychiatric: Mood and Affect: Mood normal. Behavior: Behavior is cooperative. Judgment: Judgment normal. Allergies Allergies Allergen Reactions Sulfa (Sulfonamide Antibiotics) Medications Current Outpatient Medications: aspirin 81 mg chewable tablet, Chew 1 tablet twice a day by oral route., Disp: , Rfl: irbesartan-hydrochlorothiazide (Avalide) 150-12.5 mg tablet, Take 0.5 tablets every day by oral route for 90 days., Disp: , Rfl: metoprolol succinate XL (Toprol-XL) 25 mg 24 hr tablet, Take 1 tablet by mouth in the morning., Disp: , Rfl: oxybutynin XL (Ditropan-XL) 5 mg 24 hr tablet, Take 1 tablet by mouth in the morning., Disp: , Rfl: tiZANidine (Zanaflex) 4 mg tablet, TAKE 1 TABLET BY MOUTH EVERYDAY AT BEDTIME NEEDED, Disp: , Rfl: Recent Labs No results found for any previous visit. Imaging and other tests Echocardiogram 09/05/2021: Moderate concentric LV hypertrophy with hyperdynamic systolic function. LVEF is 75 to 80%. There is acceleration of flow in the left ventricular outflow tract related to hyperdynamic contractility of the ventricle. Normal right ventricular systolic function. Normal diastolic function. No significant valvular dys (more content not included)... [facility] Evaluation note 02-08-2022 Note Date & Type Note Facility 02-08-2022 Evaluation note Encounter Date Diagnosis Assessment Notes Jan, Cough (ICD-10 - R05.9) Jan, Acute sinusitis, recurrence not specified, unspecified location (ICD-10 - J01.90) Sinusitis home care material was printed, Sinusitis home care material was printed Drink plenty fluids get plenty of rest. Take the amoxicillin clavulanate as well as prednisone as prescribed until gone. Use your Flonase inhaler. Continue home medications as prescribed. Follow-up with your family physician if no improvement in 2 to 3 days [facility] Other Consultation note 01-31-2022 Note Date & Type Note Facility 01-31-2022 Note CONSULTATION CONSULTATION DATE: 01/31/2022 HISTORY OF PRESENT ILLNESS: This is a very pleasant and active, 72-year-old female who is returning to the clinic for a seven month follow up. She historically has chronic lower back pain and most recent procedure was in 03/2021 which was a lumbar epidural steroid injection. She did have radiofrequency ablations back in 2018 and 2019. She reports no pain today and feels that overall she is doing very well. She is taking tizanidine 4 mg q.h.s. and is requesting a refill today. She is busy at home, currently caring for her , who is status post shoulder surgery. She is very cognizant of her physical activity and knows when not to overdo it. Activities such as vacuum, sweeping, mopping, twisting, pushing and turning aggravate her pain. She alternates heat and ice which does decrease her pain. In addition to her tizanidine, she is on a multivitamin regimen and will take ibuprofen on a p.r.n. basis. She is currently wearing a Holter monitor for three days due to a family history of cardiomyopathy. She denies any new pain pattern and has just episodic hypoesthesia to her right lower leg to the level of the ankle. Patient's REVIEW OF SYSTEMS / PAST MEDICAL HISTORY / ALLERGIES and IMAGES have been reviewed and they are noted on the chart. PHYSICAL EXAM: VITAL SIGNS: Blood pressure 126/78, heart rate is 64. Temperature is 97.7. She is 5'2 and weighs 186 pounds. GENERAL APPEARANCE: Pleasant, appropriate, no acute distress. FOCUSED EXAM - BACK: Range of motion is functional in lateral rotation and flexion/extension. Paravertebral muscles are non-spasmodic. No spinal axial pain upon compression of the lower lumbar facets. Azalia's point mildly tender to the right with no referred pain to the hips. FABERs and compression tests are negative. MUSCULOSKELETAL: Motor is intact, 4/5 bilaterally. Walks with a stable and steady gait. Muscle tone is adequate. NEUROLOGICAL: Patchy hypoesthesia noted along L4-5 dermatome to the level of the ankle. Radicular sensory is intact, +2 bilaterally. Patient is cognitively intact. DIAGNOSIS: Lumbar radiculitis, lumbar degenerative disc disease and lumbar spondylosis. PLAN: Refill for her tizanidine 4 mg q.h.s. was given to the patient. She is encouraged to continue with her vitamin regimen, heat, stretches and increase her daily activity as tolerated. The patient will return to the clinic on a p.r.n. basis at the patient's discretion. [facility] History general Narrative - Reported Note Date & Type Note Facility History general Narrative - Reported Type Medical History osteoporosis Medical History herniated disc Medical History hypertrophic cardiomyopathy Surgical History Hip Replacement 2017 [facility] Other Summary Purpose Family History No Family History Records FoundNo Family History Records FoundNo Family History Records FoundNo Family History Records FoundNo Family History Records Found Advance Directives No Advanced Directives Records FoundNo Advanced Directives Records FoundNo Advanced Directives Records FoundNo Advanced Directives Records FoundNo Advanced Directives Records Found Additional Source Comments INFORMATION SOURCE (unrecogn ized section and content) DATE CREATED AUTHOR 05/13/2021 [facility] Specialist DATE CREATED AUTHOR AUTHOR'S ORGANIZ ATION 10/23/2021 [facility] DATE CREATED AUTHOR AUTHOR'S ORGANIZ ATION 08/03/2022 [facility] DATE CREATED AUTHOR AUTHOR'S ORGANIZ ATION 08/31/2022 [facility] DATE CREATED AUTHOR AUTHOR'S ORGANIZ ATION 08/24/2023 [facility] dical Specialists EPIC REASON FOR VISIT (unrecogniz ed section and content) CONGESTION, H/A FOR RECORDS PERTAINING TO PATIENTS WHO ARE OR HAVE BEEN ENROLLED IN A CHEMICAL DEPENDENCY/SUBSTANCEABUSE PROGRAM, SOME INFORMATION MAY BE OMITTED. This clinical summary was aggregated from multiple sources. Caution should be exercised in using it in the provision of clinical care. This summary normalizes information from multiple sources, and as a consequence, information in this document may materially change the coding, format and clinical context of patient data. In addition, data may be omitted in some cases. CLINICAL DECISIONS SHOULD BE BASED ON THE PRIMARY CLINICAL RECORDS. [employer] provides no warranty or guarantee of the accuracy or completeness of information in this document.
[2023-09-09 08:38] VITALS: TEMP 36.2
[2023-09-09 08:44] VITALS: BP 154/87; PULSE 77; TEMP 36.2; O2SAT 93
[2023-09-09 09:34] VITALS: BP 156/73; BP 159/79; PULSE 70; PULSE 76; O2SAT 95; O2SAT 96
[2023-09-09] MEDS: BUPIVACAINE HCL 0.25% PF 25 MG/10 ML VIAL 4 ML INJ (09:37)
--- NOTE | 2023-09-09 10:08 | W.PM.PROCNOT ---
Date of procedure: 09/09/23 Pre-op diagnosis: bilateral superior gluteal neurtitis Post-op diagnosis: same as pre-op Procedure: Bilateral Superior gluteal nerve block, diagnostic Performed under fluoroscopic guidance Immediate complications none Anesthesia: none Solution used for injection: In each syringe, 2 milliliters 0.25% Marcaine 2.5 mL is used for injection for each side Time out process compliant After informed consent obtained patient was brought to the procedure room placed in the prone position skin overlying the area was prepped and draped in a sterile fashion using betadine. 25 gauge spinal needle Insert over each of the target areas identified in fluoroscopy corresponding needles were advanced Under fluoroscopic guidance until the target/targets encountered, no indication of intravascular or Intraneuronal needle tip placement. Solution injected.needles removed post procedurally. patient transferred to recovery room in stable condition to be discharged home after meeting criteria Anesthesia: Local Surgeon: Marion Abraham Condition: stable
== END 2023-09-09 09:41 | disposition home or self-care (01) ==
LOC: SURGOUT 08:07
PROVIDERS: PCP Internal Medicine; Visit Provider Anesthesiology Pain Medicine
DX: G57.83 Other specified mononeuropathies of bilateral lower limbs (principal)
CPT/HCPCS: 64450

== ENCOUNTER 2023-09-18 10:50 | Outpatient (OUT) | payer MEDICARE, SELFPAY ==
--- NOTE | 2023-09-18 10:54 | PM.CN ---
Consult Note: HPI Data of Consult Patient: known to practice within the last 3 years Requesting Physician: Mariaelena Romano NP Primary Care Provider: GERA GALEANO Consult Narrative Reason for consult: f/u Narrative: Teodora Daily a pleasant 73 year old female presents for evaluation and management of chronic pain. At last visit with Dr Abraham her main complaint was bilateral posterior hips and low back, therefore he recommended bilateral superior gluteal nerve block with >80% improvement in pain and functional ability. She noticed improvement in ability to ambulate and walk distances with less pain, as well as improvement in getting in and out of the car. Patient was also referred by orthopedics for evaluation and management of right knee OA, as she has failed to benefit from steroid based injections and is looking to avoid surgical intervention at this time. Pain today in low back and right knee 5/10, increasing to 8/10 with stairs, walking, standing, driving. Pain improved with sitting. Patient has failed to benefit from tylenol and motrin greater than 6 weeks. cc:: CC: Mariaelena Romano NP Review of Systems ROS Status of ROS 10 or more systems reviewed and unremarkable except as noted in history and below Musculoskeletal Reports: back pain and joint pain PFSH PFSH Medical History Osteoarthritis ?M19.90 - Unspecified osteoarthritis, unspecified site (ICD-10) Carpal tunnel syndrome ?G56.00 - Carpal tunnel syndrome, unspecified upper limb (ICD-10) Heart murmur ?R01.1 - Cardiac murmur, unspecified (ICD-10) Hypertrophic cardiomyopathy ?I42.2 - Other hypertrophic cardiomyopathy (ICD-10) HTN (hypertension) ?I10 - Essential (primary) hypertension (ICD-10) Surgical History Hx of tonsillectomy ?Z90.89 - Acquired absence of other organs (ICD-10) History of bladder suspension procedure ?Z98.890 - Other specified postprocedural states (ICD-10) ?Z87.448 - Personal history of other diseases of urinary system (ICD-10) History of foot surgery ?Z98.890 - Other specified postprocedural states (ICD-10) History of hip replacement ?Z96.649 - Presence of unspecified artificial hip joint (ICD-10) History of colon resection ?Z90.49 - Acquired absence of other specified parts of digestive tract (ICD-10) History of hysterectomy ?Z90.710 - Acquired absence of both cervix and uterus (ICD-10) Meds Home Medications and Allergies Home Medications ?Medication ?Instructions ?Recorded ?Confirmed ?Type aspirin 81 mg capsule 81 mg PO DAILY 08/21/23 09/09/23 History cyclosporine 0.05 % eye drops 1 drp ophthalmic (eye) Q12H 08/21/23 09/09/23 History (Restasis MultiDose) fluticasone propionate 50 1 spray intranasal DAILY PRN 08/21/23 09/09/23 History mcg/actuation nasal allergy symptoms spray,suspension (24 Hour Allergy Relief) irbesartan 75 mg tablet 75 mg PO DAILY 08/21/23 09/09/23 History metoprolol succinate 25 mg 25 mg PO DAILY 08/21/23 09/09/23 History tablet,extended release 24 hr (Toprol XL) paroxetine HCl 20 mg tablet 20 mg PO DAILY 08/21/23 09/09/23 History tizanidine 4 mg tablet 4 mg PO DAILY PRN muscle spasticity 08/21/23 09/09/23 History Allergies Allergy/AdvReac Type Severity Reaction Status Date / Time oxycodone Allergy Hives Verified 09/09/23 08:46 Sulfa (Sulfonamide Allergy Rash Verified 09/09/23 08:46 Antibiotics) Exam Constitutional Documenting provider has reviewed patient's vital signs: yes Common normals: no apparent distress, oriented x3, healthy appearing, alert and well nourished General appearance: cooperative [facility] Common normals: normocephalic, hearing grossly normal bilaterally and moist oral mucous membranes Head and scalp: normocephalic Eye Common normals: PERRL Pupil: PERRL Neck & C-Spine Common normals: full ROM General: normal visual inspection Chest Common normals: inspection of chest normal Respiratory Common normals: normal respiratory effort, no retractions and no use of accessory muscles Back & Pelvis Lumbar spine/lower back: pain with ROM, lumbar spinal tenderness and straight leg raise negative bilaterally Sacroiliac joints: SI joint(s) abnormal Other: bilateral positive david(patricks), gaenslens, thigh thrust, compression test dysesthesia and hyperesthesia overlying the distribution of the superior gluteal nerve, occurring bilaterally with associated myofascial spasm of the gluteus medius muscle occurring bilaterally as well. Extremity Right lower extremity: knee joint Other: enlarged diameter of right knee, crepitus noted on exam, no instability or edema. pain increases with medial and lateral stress testing. Neuro Common normals: oriented x3, CN's II-XII intact bilaterally, moves all extremities, no focal motor deficits, no sensory deficits noted and deep tendon reflexes 2+ bilaterally Sensorium/orientation: alert Motor exam: strength 5/5 throughout and no movement abnormalities noted Psych Common normals: mental status grossly normal, thought process normal, cooperative, affect normal, speech normal and activity/motor behavior normal Speech: normal speech Thought process: normal thought process Results Additional Findings Additional findings: If on a controlled substance or opioids, I have checked an [place] report on this patient and there are no aberrancies noted in the prescribing history.??If on a controlled substance or opioid a drug screen was completed and reviewed within the last year, and if there has not been a drug screen completed we ordered one today to monitor higher risk, state monitored pain medication use. As part of providing excellent, safe, comprehensive care, the following was completed at our patient's visit: 1. A medication reconciliation and review to ensure accurate knowledge of current/active medications, including asking our patients to inform us about any [id number] medications or herbal remedies/nutritional supplements/alternative remedies. 2. A review to specifically ensure our patients have had annual screening for screening for depression, screening for tobacco use, and screening for unhealthy alcohol use. For concerning screenings had a discussion with the patient, provided patient education, and recommended follow-up with primary care provider when appropriate. If patient noted with a risk of falling, they received education on strength, gait, and balance training to prevent future risk of falling. Assessment and Plan Assessment and Plan (1) Unspecified mononeuropathy of right lower limb: (2) Unspecified mononeuropathy of left lower limb: (3) Osteoarthritis of right knee: (4) Chronic pain of right knee: Plan right and left superior gluteal nerve RFA under fluoroscopy with IV sedation right knee YOON injection under fluoroscopy continue current medications f/u 1 month after completion
== END 2023-09-18 10:51 | disposition home or self-care (01) ==
LOC: PM 10:50
PROVIDERS: PCP Internal Medicine; Visit Provider Nurse Practitioner
DX: G57.93 Unspecified mononeuropathy of bilateral lower limbs (principal); M17.11 Unilateral primary osteoarthritis, right knee; M25.561 Pain in right knee
CPT/HCPCS: G0463

== ENCOUNTER 2023-09-19 11:40 | Outpatient (OUT) | payer MEDICARE, SELFPAY ==
[2023-09-19 11:57] LABS: Basophils Absolute Auto 0.1 10^3/uL (0.0-0.1); Basophils Percent Auto 0.7 % (0.2-2.0); Eosinophils Absolute Auto 0.4 10^3/uL (0.0-0.7); Hematocrit 41.8 % (36.0-48.0); Hemoglobin 13.1 g/dL (12.0-16.0); Immature Granulocytes Abs Auto 0.05 10^3/uL (0.00-0.03); Immature Granulocytes Pct Auto 0.5 % (0.0-0.5); Lymphocytes Absolute Auto 2.7 10^3/uL (1.2-3.8); Lymphocytes Percent Auto 27.3 % (20.5-60.0); Mean Corpuscular HGB Conc 31.3 g/dL (29.9-35.2); Mean Corpuscular Volume 92.5 fL (81.0-99.0); Mean Platelet Volume 11.3 fL (9.5-13.5); Monocytes Absolute Auto 0.8 10^3/uL (0.3-0.8); Monocytes Percent Auto 8.1 % (1.7-12.0); Neutrophils Absolute Auto 5.8 10^3/uL (1.4-6.5); Neutrophils Percent Auto 59.4 % (43.0-75.0); Platelet Count 260 10^3/uL (150-450); Red Blood Count 4.52 10^6/uL (4.20-5.40); Red Cell Distribution Width 12.7 % (11.0-15.0); White Blood Count 9.7 10^3/uL (4.0-11.0)
[2023-09-19 12:32] LABS: Alanine Aminotransferase 27 U/L (14-59); Albumin Globulin Ratio 1.1; Albumin Level 3.7 g/dL (3.4-5.0); Alkaline Phosphatase 107 U/L (46-116); Anion Gap 10.3; Aspartate Amino Transferase 13 U/L (15-37); Bilirubin Total 0.4 mg/dL (0.2-1.0); Calcium 8.8 mg/dL (8.5-10.1); Chloride 99 mmol/L (98-107); Cholesterol 201 mg/dL (<=200); Estimated GFR (African America >60 (>=60); Estimated GFR (Non-African Ame >60 (>=60); Globulin 3.4 g/dL; Glucose 98 mg/dL (74-106); HDL Cholesterol 67 mg/dL (40-60); Potassium 4.3 mmol/L (3.5-5.1); Sodium 135 mmol/L (136-145); Total Protein 7.1 g/dL (6.4-8.2); Triglycerides 153 mg/dL (<=150); VLDL CHOLESTEROL 30.6 mg/dL
== END 2023-09-19 11:41 | disposition home or self-care (01) ==
LOC: LAB 11:40
PROVIDERS: PCP Internal Medicine; Visit Provider Internal Medicine Interventional Cardiology
DX: R00.2 Palpitations (principal); I10 Essential (primary) hypertension; R06.02 Shortness of breath
CPT/HCPCS: 36415; 80053; 80061; 85025

== ENCOUNTER 2023-09-23 08:00 | Day surgery (SDC) | payer MEDICARE, SELFPAY ==
--- OUTSIDE RECORDS SUMMARY | 2023-09-23 08:06 | XMS_ITS | CCD ---
Author Organization [facility] Care Team Providers Care Line Crew Supervisor Name Role Phone UNKNOWN, PHYSICIAN Referring Unavailable UNKNOWN, PHYSICIAN Primary Care Unavailable CHRIS GARCIA V Admitting Unavailable MOUKATIMUR CHRIS Richard Attending Unavailable Staci Esquivel Unavailable ABDIAS ., ASHTYN Admitting Unavailable ABDIAS ., ASHTYN Attending Unavailable ANNA ., THUY WU Consulting Unavailabl e GALEANO, DR BOSS Primary Care Unavailable KLIPPJESUS LUEVANO Consulting Unavailable DEVIN ., DR DARYL Juarez Attending Unavailable BELTRAN ., DR DARYL Jaurez Admitting Unavailable FROYLAN, DR BOSS Primary Care Unavailable GALEANO, DR BOSS Consulting Unavailable JULIO WOO Consulting Unavailable LAKSHMIPATHY, NARENDRANATH Admitting Unava ilable [...] Care Unavailable GALEANO, DR BOSS Attending Unavailable CHRIS GARCIA Attending Unavailable LINDSEY RAYMUNDO Attending Unavailable GERA GALEANO Referring Unavailable APLINGSKYE Attending Unavailable CELSA MANZAANRES Attending Unavailable APLSKYE HELTON Referring Unavailable EMIGDIO COURTNEY Attending Unavailable APLSKYE HELTON Attending Unavailable LINDSEY RAYMUNDO Attending Unavailable APLINGSKYE Referring Unavailable APLING, SKYE B Attending Unavailable Allergies Allergy Classification Reported Allergen(s) Allergy Type Date of Onset Reaction(s) Facility (1 source) oxyCODONE Drug Allergy [employer] [place] [facility] Other (1 source) Sulfacetamide Drug Allergy neck swelled, [employer] [facility] Other (2 sources) oxyCODONE Drug Allergy [facility] Repository (2 sources) Sulfonamides (Antibiotic) Drug allergy (disorder) [facility] Repository (1 source) Sulfonamides (Antibiotic); Translations: [SULFA (SULFONAMIDE ANTIBIOTICS)] Propensity to adverse reactions to drug (disorder) 12-26-19 [facility] Repository Medications Current Medications Medication Drug Class(es) [...] dysrhythmias (2 sources) Palpitations; Translations: [Palpitations] Onset: 09-17-2023 Episodic Essential hypertension (2 sources) Essential (primary) [...] (1 source) Cough; Translations: [Cough] Episodic Other lower respiratory disease (2 sources) Shortness of breath; Translations: [Shortness of breath] Onset: 09-17-2023 Episodic Other upper respiratory infections (1 source) Acute sinusitis, unspecified Episodic Spondylosis; intervertebral disc disorders; other back [...] 04-05-2022 Episodic Other aftercare (1 source) Other roasterman (current) drug therapy; Translations: [OTH MCC CURRENT DRUG THERAPY] Onset: 04-09-2022 Episodic Other [...] NEOPLSM OTH GENIT ORGN] Onset: 12-11-2021 Episodic Screening and history of mental health and substance abuse codes (1 source) Personal history of nicotine dependence; Translations: [PERSONAL HISTORY OF NICOTINE DEPEND] Onset: 04-09-2022 Episodic Spondylosis; intervertebral disc disorders; other back problems (1 source) Intervertebral disc disorders with radiculopathy, lumbar region; Translations: [IV DISC D/O W/RADICULOPATHY LUMB] Onset: 02-02-2022 Episodic Unclassified (1 source) Cough R05.9 Results Test Name Value Interpretation Reference Range Facility Office Visiton 09-17-2023 Follow-up visit [id number] Teodora Daily 1950 F Date Provider Department Center 09/17/2023 CHRIS BENZ [facility] Family History Problem Relation Age of Onset Other Mother Hypertrophic cardiomyopathy Sister Stroke Sister Other Sister Hypertrophic cardiomyopathy Brother Family Status - Relation Status Age at Mother Sister Brother Level of Service:[address]44 [place] OFFICE/OUTPATIENT ESTABLISHED MOD MDM 30 MIN Normal [facility] FREE T3on 07-24-2022 FREE T3 2.66 pg/mlL Normal 2.18-3.98 [facility] Comment on above: Performed By: #### T SH, FT3 #### [facility] [address] [place] [address] Dr. Adolph Clinton FREE T4on 07-24-2022 Free T4 [Mass/Vol] 0.85 ng/dL Normal 0.76-1.46 [facility] Comment on above: Performed By: #### F T4 #### [facility] [address] [address] [address] Adolph Clinton TSHon 07-24-2022 TSH 2.124 uIU/mL Normal 0.358-3.740 [facility] Comment on above: Performed By: #### T , FT3 #### [facility] [address] [address] [address] Adolph Clinton XR FINGER MIN 2 [...] by: JESUS FELIZ Date: 2022-04-05 19:19 Normal [facility] COVID Quick Testingon 2021 Result Negative [facility] Other Quick Fluon 02-08-2022 FLUAV Ab CF (S) [Titer] Negative [facility] Other FLUBV Ab CF (S) [Titer] Negative [facility] Other MG MAMM SCREEN 3D SHARAD CADon 12-07-2021 MG MAMM SCREEN 3D SHARAD CAD Patient: TEODORA DAILY Exam Date: 12/07/2021 : 1950 Gender:F Ordering : DR GERA GALEANO M.D. Admission #: [id number] Family : DR. TEODORA GUAJARDO D.O. Order #: [id number] CLICK HERE TO VIEW EXAM RADIOLOGY REPORT [...] uterine cancer at age 58. LOCATION: [facility] BREAST COMPOSITION: Scattered areas fibroglandular density. [...] Bryan Salguero M.D. on 12/07/2021 at 12:13 Normal [facility] XR DEXA BONE DENSITYon 12-07 XR [...] by: BRYAN SALGUERO Date: 2021-12-07 15:10 Normal [facility] MRI CARDIAC W WO CONTRASTon 10-16-2021 MRI CARDIAC W WO CONTRAST [facility] Department of Radiology [address] [place] [id number] ===== Patient Name: TEODORA DAILY : 1950 Sex: F Age: Race: White Pt. Location: Patient Status: D Ordered Date: 09/25/2021 8:10:00 AM Completed Date: 10/16/2021 12:33 PM Requesting Provider: CHRIS GARCIA V Attending Provider: Report Copy To: Signs & Symptoms: I51.7 Cardiomegaly I10 History: [place], [place] hip replacement Comments: Exam: MRI CARDIAC [...] 2. Electronically signed: Kane Solomon. Transcribed by: [email or web address], User Resident: Electronically Signed by: KANE SOLOMON @ 10/18/2021 02:11 PM Normal [facility] CREATININEon 09-07-2021 Creatinine [Mass/Vol] 0.77 mg/dL Normal 0.55-1.02 [facility] Comment on above: Performed By: #### C IDALIA #### [facility] [address] [place] [address] Dr. Adolph Clinton EGFR-AF NEW ZEALANDER >60 Normal >=60 [facility] Comment on above: Performed By: #### C IDALIA #### [facility] [address] [address] [address] Adolph Clinton EGFR-NON AF NEW ZEALANDER >60 Normal >=60 [facility] Comment on above: Performed By: #### C IDALIA #### [facility] [address] [place] [address] HEAD WO W CONon 2 CT HEAD WO W CON EXAMINATION: CT HEAD WO W CON HISTORY: Transient cerebral ischemia COMPARISON: None. TECHNIQUE: Multiple computed tomograms of the head were obtained with and without intravenous contrast enhancement. The patient was a rn cardiovascular icu 15 cc of Omnipaque 240 intravenously without [...] apparent skull fracture. The vasculature about the pala of Martin appears grossly intact. IMPRESSION: There [...] by: KAILEE GARCIA Date: 2021-09-07 13:44 Normal [facility] ECHOCARDIO M/2D COMPLETEon 0 09-05-2021 ECHOCARDIO M/2D COMPLETE Patient: TEODORA DAILY Exam Date: 09/05/2021 : 1950 Gender:F Ordering : DR GERA GALEANO M.D. Admission #: [id number] Family : Order #: [id number] CLICK HERE TO VIEW EXAM ECHOCARDIOGRAM REPORT [...] Area(A4C): 12.70 cm2 Left Atrium Systolic Volume(A2C): 04203 mm3 Left Atrium Systolic Volume(A4C): 06257 mm3 Mitral Valve MV E to A [...] Garcia M.D. on 09/05/2021 at 20:08 Normal [facility] Q - DEJUAN SCREEN IFA W/RFL TIT ER IFAon 05-10-2021 DEJUAN SCREEN, IFA Negative Normal NEGATIVE [facility] Special[facility] Comment on above: Order Comment: [facility] Testing performed at: [facility], [facility], [address] [place] [address], [address] [place] [address], [phone], Public Aid Eligibility Assistant: Pedro Asencio MD [facility] Collection Date/Time: [facility] [...] AC-0: Negative International Consensus on DEJUAN Patterns (https://doi.org/10.1515/nctn-3787-8837) For additional information, please refer to http://education.Socialbakers/faq/AKA744 (This link is being provided for informational/ educational purposes only.) Performed By: #### 7 832X, 249X #### [facility] [address] [place] [address] Q - SJOGREN'S ABS (SS-A,SS-B )on 05-10-2021 SJOGREN'S ANTIBODY (SS-A) <1.0 NEG Normal <1.0 NEG [facility] Comment on above: Order Comment: [facility] performed at: [employer], [employer] [facility], [address] [place] [address], [address] [place] [address], [phone], Public Aid Eligibility Assistant: Pedro Asencio MD [facility] Collection Date/Time: [facility] Results Received Date/Time: [facility] Reported Date/Time: Performed By: #### 7 832X, 249X #### [facility] [address] [place] [address] SJOGREN'S ANTIBODY (SS-B) <1.0 NEG Normal <1.0 NEG [facility] Comment on above: Order Comment: [facility] performed at: [employer], [facility], [address] [facility], [address] [place], [phone], Public Aid Eligibility Assistant: Pedro Asencio MD [facility] Date/Time: [facility] Results Received Date/Time: [facility] Reported Date/Time: Performed By: #### 7 832X, 249X #### [facility] [address] [place] [address] Q - DEJUAN CASC [id number] CHROMATIN (NUCLEOSOMAL) ANTIBODY <1.0 NEG Normal <1.0 NEG [facility] Specialist Comment on above: Order Comment: [facility] performed at: [facility] [employer], [facility], [address] [facility], [address] [place] [address], [phone], Public Aid Eligibility Assistant: Pedro Asencio MD [facility] Collection Date/Time: [id number] [facility] Results Received Date/Time: [facility] Reported Date/Time: [...] 12% Sjogren's syndrome and 8% polymyositis. Ribonucleoprotein (CINDER PIT WORKER) antibodies are to CINDER PIT WORKER A and/or CINDER PIT WORKER 68kD proteins; antibodies to one or both are present in >80% MCTD, 22% to 48% SLE, 14% systemic sclerosis, 12% Sjogren's and 8% polymyositis. Sm/CINDER PIT WORKER antibodies are directed to epitopes formed in a complex of Sm and CINDER PIT WORKER; antibodies to the Sm/CINDER PIT WORKER complex are present in 54% to 94% MCTD, 30% SLE, 4% systemic sclerosis, and 9% Sjogren's and polymyositis. Sm antibody is present in 20% to 30% SLE, 8% MCTD, 10% polymyositis, 0% systemic sclerosis and 4% Sjogren's syndrome. Double stranded DNA, Chromatin, Ribonucleoprotein, Sm/CINDER PIT WORKER complex and Sm antibodies are present in <2% of normal blood donors. The [facility] does not rule out autoimmune disease characterized by other autoantibody specificities such as rheumatoid arthritis, autoimmune hepatitis, primary biliary cholangitis, autoimmune thyroiditis, Kendall's disease, pernicious anemia, autoimmune neuropathies, vasculitis, celiac disease and bullous disease. Please contact your local [facility] laboratory if you are interested in additional testing. Performed By: #### % IN7, % #### [facility] [address] [place] [address] DNA (DS) ANTIBODY <1 Normal [facility] Comment on above: Order Comment: [facility] Testing performed at: [employer], [facility], [address] [place] [address], [address] [place] [address], [address] [place] [address], Public Aid Eligibility Assistant: Pedro Asencio MD [facility] Collection Date/Time: [facility] Results Received Date/Time: [facility] Reported Date/Time: Result Comment: IU/m L Interpretation < or = 4 Negative 5-9 Indeterminate > or = 10 Positive Performed By: #### % IN7, % #### [facility] [address] [place] [address] CINDER PIT WORKER ANTIBODY 1.0 POS Abnormal <1.0 NEG [facility] Comment on above: Order Comment: [facility] Testing performed at: [employer] [facility], [address] [place] [address], [address] [place] [address], [address] [place] [address], Public Aid Eligibility Assistant: Pedro Asencio MD [facility] Collection Date/Time: [facility] Results Received Date/Time: [facility] Reported Date/Time: Performed By: #### % IN7, % #### [facility] [address] [place] [address] SM ANTIBODY <1.0 NEG Normal <1.0 NEG [facility] Comment on above: Order Comment: [facility] Testing performed at: [employer], [employer], [address] [place] [address], [address] [place] [address], [address] [place] [address], Public Aid Eligibility Assistant: Pedro Asencio MD [facility] Collection Date/Time: [facility] Results Received Date/Time: [facility] Reported Date/Time: Performed By: #### % IN7, % #### [facility] [address] [place] [address] SM/CINDER PIT WORKER ANTIBODY <1.0 NEG Normal <1.0 NEG [facility] Specialist Comment on above: Order Comment: [facility] Testing performed at: [employer], [facility], [address] [facility], [address] [place] [address], [address] [place] [address], Public Aid Eligibility Assistant: Pedro Asencio MD [facility] Collection Date/Time: [facility] Results Received Date/Time: [facility] Reported Date/Time: Performed By: #### % IN7, % #### [facility] [address] [place] [address] Q - DEJUAN MULTIPLEX W/ REFLEX TO 11 ANTIBODY CASCADEon 05-01-2021 ANACHOICE(R) SCREEN Positive Abnormal NEGATIVE [facility] Comment on above: Order Comment: [facility] Testing performed at: [employer], [employer], [address] [facility], [address] [place] [address], [address] [place] [address], Public Aid Eligibility Assistant: Pedro Asencio MD [facility] Collection Date/Time: [facility] Results Received Date/Time: [facility] Reported Date/Time: Result Comment: A po sitive DEJUAN, Multiplex reflexes to the 3 Tiered Multiplex 11 Antibody [facility]. Testing in the [facility] stops at the first positive result and does not preclude additional positive results. Further laboratory testing may be considered if clinically indicated. For additional information, please refer to http://education.Socialbakers/faq/OJE013 (This link is being provided for informational/ educational purposes only.) Performed By: #### % IN7, % #### [facility] [address] [place] [address] Q - CINDER PIT WORKER INTERPon 05-01-2021 INTERPRETATION SEE NOTE Normal [employer] [facility] Comment on above: Order Comment: [facility] Testing performed at: [facility], [address], [address] [facility], [place], [address], Public Aid Eligibility Assistant: Pedro Asencio MD [facility] Collection Date/Time: [id number] [facility] Results Received Date/Time: [facility] Reported Date/Time: Result Comment: CINDER PIT WORKER antibody is found in patients with mixed connective tissue disease in high titer. This antibody may also be seen in systemic lupus erythematosus and other connective tissue diseases. A positive result at this stage of testing stops further testing, and does not preclude additional positive antibodies. Clinical correlation is required to assess the need for testing additional analytes. Performed By: #### % IN7, %, #### [facility] [address] [place] [address] Vital Signs Date Time Vital Sign Value Performing Clinician Facility 02-08-2022 13:05-0400 Body height 158.75 cm Staci Esquivel Other [facility] Other 02-08-2022 13:05-0400 Body mass index (BMI) [Ratio] 33.29 kg/m2 Staci Luamond Other [facility] Other 02-08-2022 13:05-0400 Body temperature 101 [degF] Staci Esquivel Other [facility] Other 02-08-2022 13:05-0400 Body weight 83.92 kg Staci Esquivel Other [facility] Other 02-08-2022 13:05-0400 Respiratory rate 18 /min Staci Esquivel Other [facility] Other 02-08-2022 13:05-0400 SaO2% (BldA) [Mass fraction] 95 % Staci Luamond Other [facility] Other Encounters Encounter Date Encounter Type Care Provider Facility Start: 09-17-2023 End: 09-17-2023 ambulatory SKYE Lopez APLING Not Available Start: 09-17-2023 End: 09-17-2023 ambulatory [facility] Start: 08-20-2023 End: 08-21-2023 ambulatory SKEY Lopez APLING Not Available Start: 07-14-2023 End: 07-14-2023 ambulatory EMIGDIO COURTNEY Not Available Start: 06-09-2023 End: 06-10-2023 ambulatory SKYE Lopez APLING Not Available Start: 05-19-2023 End: 05-19-2023 ambulatory LINDSEY H TIMMIS Not Available Start: 03-19-2023 End: 03-19-2023 ambulatory LINDSEY H TIMMIS Not Available Start: 03-18-2023 End: 03-18-2023 ambulatory CELSA MANZANARES Not Available Start: 07-24-2022 End: 07-25-[address] GERA GALEANO Facility:[facility] Start: 06-25-2022 ambulatory OVIDIO DASILVAMIRHEA Facility:[facility] Start: 04-05-2022 End: 04-05-2022 ambulatory ASHTYN CALERO . Facility:[facility] Start: 02-08-2022 End: 02-08-2022 ambulatory Staci Esquivel Other [facility] Other Start: 02-08-2022 Office outpatient ne w 20 minutes Staci Esquivel [facility] Start: 01-31-2022 End: 02-01-[address] DARYL BELTRAN . Facility:[facility] Start: 12-07-2021 End: 12-08-[address] GERA GALEANO Facility:[facility] Start: 10-16-2021 End: 10-17-2021 ambulatory PHYSICIAN UNKNOWN Facility:[facility] Start: 09-07-2021 End: 09-08-[address] GERA GALEANO Facility:[facility] Start: 09-05-2021 End: 09-06-[address] GERA GALEANO Facility:[facility] Payers Date Payer Category Payer Private Health Insurance [id number] 1950 Unknown [id number] 2.16.8 [id number] 1950 Unknown [id number] 2.16.84 [id number] 1950 Unknown [id number] 2.16.84 0.1.581159.3.579.2.593 1950 Unknown [id number] 2.16.84 0.1.802883.3.579.2.593 1950 Unknown [id number] 2.16.84 0.1.824093.3.579.2.593 1950 Unknown [id number] 2.16.84 0.1.837448.3.579.2.593 1950 Unknown [id number] 2.16.84 0.1.599815.3.579.2.593 1950 Unknown [id number] 2.16.84 0.1.557925.3.579.2.593 1950 Unknown [id number] 2.16.84 0.1.531178.3.579.2.1259 1950 Unknown [id number] 2.16.84 0.1.408612.3.579.2.1259 1950 Unknown [id number] 2.16.84 0.1.837585.3.579.2.1259 1950 Unknown [id number] 2.16.84 0.1.691798.3.579.2.1259 1950 Unknown [id number] 2.16.84 0.1.094172.3.579.2.1259 1950 Unknown [id number] 2.16.84 0.1.277464.3.579.2.1259 1950 Unknown [id number] 2.16.84 0.1.334137.3.579.2.1259 1950 Unknown [id number] 2.16.840 .1.616251.3.579.2.1259 1950 Unknown [id number] 2.16.840 .1.219898.3.579.2.1259 Social History Date Type Detail Facility Sex Assigned At [facility] Other Progress note 09-17-2023 Note Date & Type Note Facility 09-17-2023 Note ID Cardiology - [facility] Subjective Teodora Daily is a 73 y.o. year old female patient being seen for 1 year follow up hypertension and intermittent palpitations. She had routine labs w/ lipid profile in October 2022. C/o new SOB w/ stairs and increased palpitations. Denies chest pain. She's caring for her , who was recently diagnosed with Alzheimer's. Patient Active Problem List Diagnosis Primary hypertension Intermittent palpitations Allergic rhinitis Arthritis of right acromioclavicular joint Bilateral tinnitus Chronic tympanitis Disorder of sacrum Dyspepsia ETD (Eustachian tube dysfunction), right Former smoker Gastroesophageal reflux disease History of artificial joint Impaired glucose tolerance History of excision of intestinal structure Internal derangement of right shoulder Left ventricular hypertrophy Lumbosacral spondylosis without myelopathy Obesity Sensorineural hearing loss, bilateral Overactive bladder Osteopenia Sjogren's syndrome (CMS/HCC) Essential hypertension Bilateral lower extremity edema Decreased estrogen level Dry eye syndrome of bilateral lacrimal glands Herniated lumbar intervertebral disc History of TIA (transient ischemic attack) Keratoconjunctivitis sicca, not specified as Sjogren's, bilateral 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 She was seen initially on 09/24/2021 as a new patient, referred from Dr. Goodman's office due to abnormal echocardiogram. She has prior history of hypertension, currently on irbesartan and metoprolol. She has a history of possible hypertrophic cardiomyopathy and her family history is significant for cardiomyopathy. 2 of her sisters were diagnosed with IHSS years ago and had pacemakers. One of them is . She has a nephew that has a pacemaker/ICD. In 2013 she underwent a cardiac MRI [...] Today she reports that she has been having recent episodes of palpitations happening on and off sometimes in a row. They are short-lived. In addition she has been having significant shortness of breath on mild exertion, NYHA class III symptoms. No chest pain. No syncope. No leg edema. Review of Systems Cardiovascular: Positive for dyspnea on exertion and palpitations. Musculoskeletal: Positive for arthritis, back pain and joint pain. Neurological: Positive for light-headedness ( nothing significant ). All other systems reviewed and are negative. Objective Visit Vitals BP 108/70 (BP Location: Left arm, Patient Position: Sitting) Pulse 68 Ht 1.6 m (5' 3 ) Wt 82.6 kg (182 lb) SpO2 96% BMI 32.24 kg/m??? Smoking Status Former BSA 1.92 m??? Physical Exam Constitutional: Appearance: She is well-developed. She is not ill-appearing. HENT: Head: Normocephalic and atraumatic. Nose: Nose normal. Eyes: General: No scleral icterus. Pupils: Pupils are equal, round, and reactive to light. Neck: Thyroid: No thyromegaly. Vascular: No JVD. Cardiovascular: Rate and Rhythm: Normal rate and regular rhythm. Pulses: Radial pulses are 2+ on the right side and 2+ on the left side. Heart sounds: Normal heart sounds. No murmur heard. No friction rub. No gallop. Pulmonary: Effort: Pulmonary effort is normal. No respiratory distress. Breath sounds: Normal breath sounds. No wheezing or rales. Chest: Chest wall: No tenderness. Abdominal: General: Bowel sounds are normal. There is no distension. Palpations: Abdomen is soft. Tenderness: There is no abdominal tenderness. Musculoskeletal: General: No swelling. Cervical (more content not included)... [facility] Evaluation note 02-08-2022 Note Date & Type [...] no improvement in 2 to 3 days [facility] Other Consultation note 01-31-2022 Note Date & [...] p.r.n. basis at the patient's discretion. [facility] History general Narrative - Reported Note Date & Type Note Facility History general Narrative - Reported Type Medical History osteoporosis Medical History herniated disc Medical History hypertrophic cardiomyopathy Surgical History Hip Replacement 2017 [facility] Other Summary Purpose Family History No Family History Records FoundNo Family History Records FoundNo Family History Records FoundNo Family History Records FoundNo Family History Records Found Advance Directives No Advanced Directives Records FoundNo Advanced Directives Records FoundNo Advanced Directives Records FoundNo Advanced Directives Records FoundNo Advanced Directives Records Found Additional Source Comments INFORMATION SOURCE (unrecogn ized section and content) DATE CREATED AUTHOR 05/13/2021 [facility] dical Specialist DATE CREATED AUTHOR AUTHOR'S ORGANIZ ATION 10/23/2021 [facility] DATE CREATED AUTHOR AUTHOR'S ORGANIZ ATION 08/03/2022 [facility] DATE CREATED AUTHOR AUTHOR'S ORGANIZ ATION 09/18/2023 [facility] DATE CREATED AUTHOR AUTHOR'S ORGANIZ ATION 09/18/2023 [facility] [facility] EPIC REASON FOR VISIT [...] BE BASED ON THE PRIMARY CLINICAL RECORDS. [facility] [employer] provides no warranty or guarantee of the accuracy or completeness of information in this document.
[2023-09-23 08:31] VITALS: BP 134/87; PULSE 74; TEMP 36.2; O2SAT 96
[2023-09-23] MEDS: IOHEXOL 240 MG/ML - 10 ML VIAL 24 MG INJ (09:31)
[2023-09-23] MEDS: HYALURONATE SODIUM, STABILIZED 60 MG/3 ML SYRINGE IU (09:31)
[2023-09-23] MEDS: LIDOCAINE HCL 2% PF 100 MG/5 ML VIAL 3 ML INJ (09:31)
[2023-09-23 09:32] VITALS: BP 122/65; BP 153/65; PULSE 73; PULSE 75; O2SAT 93; O2SAT 95
--- NOTE | 2023-09-23 09:48 | W.PM.PROCNOT ---
Date of procedure: 09/23/23 Pre-op diagnosis: right knee osteoarthritis/right knee pain Post-op diagnosis: same as pre-op Procedure: Procedure: knee joint injection using Durolane 3ml. Immediate complications none. Anesthesia: 2% lidocaine plain for skin wheal. After informed consent was obtained, patient brought to the OR placed in the supine position. Skin overlying the area was prepped and draped using Betadine. 25-gauge 1/2 inch needle was used for skin wheal over the medial aspect of the knee joint identified under fluoroscopy. Omnipaque dye was used to confirm needle tip placement within the knee joint space 0.5 mL use of the injection. Subsequently 3ml of durolane was injected into the space. No indication of intravascular or intraneuronal needle tip placement or injection was noted post procedure. The needle was removed, patient transferred to Recovery room in stable condition to discharged home after meeting criteria. Anesthesia: Local Surgeon: Marion Abraham Condition: stable Disposition: PACU
== END 2023-09-23 09:39 | disposition home or self-care (01) ==
PROVIDERS: PCP Internal Medicine; Visit Provider Anesthesiology Pain Medicine
DX: M17.11 Unilateral primary osteoarthritis, right knee (principal); M25.561 Pain in right knee
CPT/HCPCS: 20610; 77002; J7318; Q9966

== ENCOUNTER 2023-10-07 06:43 | Day surgery (SDC) | payer MEDICARE, SELFPAY ==
[2023-10-07 07:03] VITALS: BP 126/70; PULSE 74; TEMP 36.6; O2SAT 95
[2023-10-07] MEDS: 0.9 % SODIUM CHLORIDE 500 ML IV (07:07)
[2023-10-07] MEDS: BUPIVACAINE HCL 0.25% PF 25 MG/10 ML VIAL 4 ML INJ (07:57)
[2023-10-07] MEDS: LIDOCAINE HCL 2% 400 MG/20 ML MDV 8 ML INJ (07:58)
[2023-10-07] MEDS: METHYLPREDNISOLONE ACETATE 40 MG/ML VIAL INJ (07:58)
[2023-10-07 07:59] VITALS: BP 120/73; PULSE 69; TEMP 36.9; O2SAT 97
--- NOTE | 2023-10-07 08:08 | W.PM.PROCNOT ---
Date of procedure: 10/07/23 Pre-op diagnosis: Right superior gluteal neuritis Post-op diagnosis: same as pre-op Procedure: Right Superior gluteal nerve Radiofrequency ablation PreOp diagnosis: pain secondary to superior gluteal neuritis Postop diagnosis same Under fluoroscopic guidance Rhizotomy was created using radio frequency ablation at 80?C for 90 seconds 1 to 2 lesions created at each site. Post lesioning injection of 2 mL each of 0.25% Marcaine and 2% lidocaine with Depo-Medrol 40mg. 0.5 to 1 mL injected at each site IV in place yes If Intravenous fluids: NS at KVO Anesthesia local 2% lidocaine for Anesthesia Other: MAC Timeout process compliant After informed consent obtained. Patient brought to the procedure room placed in the prone position skin overlying the area was prepped and draped in a sterile fashion using betadine. 25 gauge needle was used to create a skin wheal over each of the targeted areas utilizing 2% lidocaine. A rhizotomy needle with a 10 mm active tip was inserted over each of the anesthetized areas and directed towards four different areas in the distribution of the superior gluteal nerve, accomplished under fluoroscopic guidance. After encountering the same we had positive sensory stimulation, negative motor stimulation was noted. lesions were then created. Post lesioning, steroid solution was injected needles removed. Patient was transferred to recovery room in stable condition to be discharged home after meeting criteria. Anesthesia: MAC Surgeon: Marion Abraham Condition: stable
[2023-10-07 08:12] VITALS: BP 117/67; PULSE 69; TEMP 36.9; O2SAT 97
== END 2023-10-07 08:20 | disposition home or self-care (01) ==
LOC: SURGOUT 06:44
PROVIDERS: PCP Internal Medicine; Visit Provider Anesthesiology Pain Medicine
DX: G57.81 Other specified mononeuropathies of right lower limb (principal)
CPT/HCPCS: 64640; J0665; J1010; J2704

== ENCOUNTER 2023-10-20 09:48 | Outpatient (OUT) | payer MEDICARE, SELFPAY ==
--- NOTE | 2023-10-20 10:02 | CA_ITS ---
Patient Name: YAO PATEL MR#: [id number] : 1950 Exam Date: 10/20/2023 Ordering Doctor: DR RAMY CHACKO M.D. ECHOCARDIOGRAM REPORT PROCEDURE: CA ECHO DOPPLER COMPLETE INDICATIONS: Dyspnea, Palpitations COMPARISON: None. DESCRIPTION: COMPLETE ECHOCARDIOGRAM Real-time transthoracic echocardiography with 2D, M-mode, spectral and color flow Doppler performed. QUALITY: Technical quality was good. LEFT VENTRICLE: Normal chamber size. Thickened septal wall. Mild to moderate concentric left ventricular hypertrophy. Hyperdynamic systolic function. LV EF: Estimated left ventricular ejection fraction is hyperdynamic at 70-75 %. DIASTOLIC: Diastolic function is indeterminate. ATRIAL SEPTUM: LEFT ATRIUM: Normal chamber size. RIGHT ATRIUM: Normal chamber size. RIGHT VENTRICLE: Normal chamber size. Normal right ventricular systolic function. TRICUSPID VALVE: Normal mobility and thickness. No stenosis with trivial regurgitation. Mild pulmonary hypertension. RVSP 37 mmHg MITRAL VALVE: Normal mobility and thickness. No evidence of mitral valve stenosis. There is no mitral annular calcification. Trivial mitral regurgitation. AORTIC VALVE: Normal trileaflet appearance. No visible sclerosis. Normal leaflet mobility. No evidence of aortic valve stenosis. Trivial aortic regurgitation. AORTIC ROOT: Normal diameter and appearance. PULMONIC VALVE: Normal thickness and mobility. No stenosis. No regurgitation. PERICARDIUM: No evidence of pericardial effusion. IVC: Collapses with inspirations. Normal size. PLEURA: CONCLUSION: 1. Mild to moderate concentric left ventricular hypertrophy with hyperdynamic systolic function. LVEF is estimated at 70 to 75%. 2. Normal right ventricular size and systolic function. 3. No significant valvular dysfunction. 4. Mild elevation of right-sided pressures. RVSP is 37 mmHg. Adult Echocardiography Procedure Report Left Ventricle LVEDD (3.7 - 5.6 cm): 3.38 cm LVESD (2.2 - 4.0 cm): 2.10 cm LVIVS thickness (0.6 - 1.2 cm): 1.56 cm LVPW thickness (0.5 - 1.0 cm): 0.99 cm e': 0.08 m/s E - e': 7.14 LVOT Max Gradient: 7.27 mm[Hg] LVOT Area (cm2): 1.35 m/s Peak Velocity (LVOT): 1.35 m/s Mean Velocity (LVOT): 0.97 m/s LVOT Diameter 2.05 cm Left Ventricular Ejection Fraction: 70-75 % Left Atrium LA Volume Index (2D A2C): 22.05 ml/m2 Left Atrium Systolic Dimension: 3.56 cm Mitral Valve MV E to A Ratio: 0.58 Mitral Valve A-Wave Peak Velocity: 1.01 m/s Mitral Valve E-Wave Peak Velocity: 0.59 m/s Right Ventricle RV Internal Diastolic Dimension: 3.39 cm Aorta AO Root Diam: 3.24 cm Ascending Ao Diam: 2.69 cm Aortic Valve AoV Area (Peak Michael): 2.43 cm2, 2.43 cm2 AoV Area (VTI): 2.84 cm2, 2.77 cm2 Peak Velocity(Antegrade Flow): 1.83 m/s, 1.83 m/s Peak Gradient(Antegrade Flow): 13.46 mm[Hg], 13.46 mm[Hg] Mean Velocity(Antegrade Flow): 1.28 m/s, 1.22 m/s Mean Gradient(Antegrade Flow): 7.34 mm[Hg], 6.73 mm[Hg] Velocity Time Integral: 37.89 cm, 36.16 cm Tricuspid Valve Peak Velocity (Regurgitant Flow): 2.30 m/s, 2.91 m/s Pulmonic Valve Mean Gradient: 1.91 mm[Hg], 2.30 mm[Hg] Mean Velocity: 0.65 m/s, 0.71 m/s Peak Velocity: 1.01 m/s, 0.91 m/s Peak Gradient: 3.30 mm[Hg], 3.51 mm[Hg], 4.73 mm[Hg] Right Atrium Right Atrium Systolic Pressure: 36.47 ml, 36.47 ml Dictated by: Ramy Chacko M.D. on 10/21/2023 at 18:24 Approved by: Ramy Chacko M.D. on 10/21/2023 at 18:30
--- OUTSIDE RECORDS SUMMARY | 2023-10-20 10:04 | XMS_ITS | CCD ---
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 Name Role Phone UNKNOWN, PHYSICIAN Referring Unavailable UNKNOWN, PHYSICIAN Primary Care Unavailable CHRIS GARCIA V Admitting Unavailable MOCHRIS BLACKWOOD V Attending Unavailable Staci Esquivel Unavailable ABDIAS ., ASHTYN Admitting Unavailable ABDIAS ., ASHTYN Attending Unavailable ANNA ., THUY WU Consulting Unavailabl e FROYLAN, DR BOSS Primary Care Unavailable KLIPPJESUS LUEVANO Consulting Unavailable DEVIN ., DR DARYL Juarez Attending Unavailable BELTRAN ., DR DARYL Juarez Admitting Unavailable FROYLAN, DR BOSS Primary Care Unavailable GALEANO, DR BOSS Consulting Unavailable JULIO WOO Consulting Unavailable LAKSHMIPATHY, NARENDRANATH Admitting Unava ilable GALEANO, DR BOSS Primary Care Unavailable LAKSHMIPATHY, NARENDYAKOVATH Attending Unava ilable GALEANO, DR BOSS Admitting Unavailable GALEANO, DR BOSS Primary Care Unavailable GALEANO, DR BOSS Consulting Unavailable GALEANO, DR BOSS Attending Unavailable ZIEBER, DR BRYAN Castellon Consulting Unavailable GALEANO, DR OBSS Attending Unavailable FROYLAN, DR BOSS Admitting Unavailable GALEANO, DR BOSS [...] GALEANO Referring Unavailable APLINGSKYE Attending Unavailable CELSA MANZANARES Attending Unavailable SKYE DAS Referring Unavailable EMIGDIO COURTNEY Attending Unavailable SKYE DAS Attending Unavailable LINDSEY RAYMUNDO Attending Unavailable APLINGSKYE Referring Unavailable APLING, SKYE B Attending Unavailable CHET MCLAUGHLIN Attending Unavailable CHET MCLAUGHLIN Referring Unavailable Allergies Allergy Classification Reported Allergen(s) Allergy Type Date of Onset Reaction(s) Facility (1 source) oxyCODONE Drug Allergy [facility] [place] [facility] Other (1 source) Sulfacetamide Drug Allergy neck swelled, [employer] [facility] Other (2 sources) oxyCODONE Drug Allergy [facility] Repository (2 sources) Sulfonamides (Antibiotic) Drug allergy (disorder) [facility] Repository (1 source) Sulfonamides (Antibiotic); Translations: [SULFA (SULFONAMIDE ANTIBIOTICS)] Propensity to adverse reactions to drug (disorder) 12-26-19 [facility] Repository Medications Current Medications Medication Drug Class(es) [...] 04-05-2022 Episodic Other aftercare (1 source) 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; Translations: [OTH [facility] CURRENT DRUG THERAPY] Onset: 04-09-2022 Episodic Other [...] Range Facility Office Visiton 09-17-2023 Follow-up visit [id number] Teodora Daily 1950 F Date Provider Department Center 09/17/2023 CHRIS BENZ [facility] Family History Problem Relation Age of Onset Other Mother Hypertrophic cardiomyopathy Sister Stroke Sister Other Sister Hypertrophic cardiomyopathy Brother Family Status - Relation Status Age at Mother Sister Brother Level of Service:88083 [place] OFFICE/OUTPATIENT ESTABLISHED MOD MDM 30 MIN Normal [facility] FREE T3on 07-24-2022 FREE T3 2.66 pg/mlL Normal 2.18-3.98 [facility] Comment on above: Performed By: #### T SH, FT3 #### [facility] Laboratory [address] [address] [address] Adolph Clinton FREE T4on 07-24-2022 Free T4 [Mass/Vol] 0.85 ng/dL Normal 0.76-1.46 [facility] Comment on above: Performed By: #### F T4 #### [facility] Laboratory [address] [address] [address] Adolph Clinton TSHon 07-24-2022 TSH 2.124 uIU/mL Normal 0.358-3.740 [facility] Comment on above: Performed By: #### T , FT3 #### [facility] [address] [address] [address] Adolph Clinton XR FINGER MIN 2 [...] by: JESUS FELIZ Date: 2022-04-05 19:19 Normal [facility] COVID Quick Testingon 2021 Result Negative [facility] Other Quick Fluon 02-08-2022 FLUAV Ab CF (S) [Titer] Negative [facility] Other FLUBV Ab CF (S) [Titer] Negative [facility] Other MG MAMM SCREEN 3D SHARAD CADon 12-07-2021 MG MAMM SCREEN 3D SHARAD CAD Patient: TEODORA DAILY Exam Date: 12/07/2021 : 1950 Gender:F Ordering : DR GERA GALEANO M.D. Admission #: [id number] Family : DR. TEODORA GUAJARDO DBelkis Order #: [id number] CLICK HERE TO VIEW EXAM RADIOLOGY REPORT [...] uterine cancer at age 58. LOCATION: [facility] BREAST COMPOSITION: Scattered areas fibroglandular density. FINDINGS: [...] Salguero M.D. on 12/07/2021 at 12:13 Normal [facility] XR DEXA BONE DENSITYon 12-07 XR DEXA [...] by: BRYAN SALGUERO Date: 2021-12-07 15:10 Normal [facility] MRI CARDIAC W WO CONTRASTon 10-16-2021 MRI CARDIAC W WO CONTRAST [facility] Department of Radiology [address] [place] [id number] ===== Patient Name: TEODORA DAILY : 1950 Sex: F Age: Race: White Pt. Location: 30 Patient Status: D Ordered Date: 09/25/2021 8:10:00 AM Completed Date: 10/16/2021 12:33 PM Requesting Provider: CHRIS GARCIA V Attending Provider: Report Copy To: Signs & Symptoms: I51.7 Cardiomegaly I10 History: Luz, Joel hip replacement Comments: Exam: MRI CARDIAC W [...] 2. Electronically signed: Kane Solomon. Transcribed by: [email or web address], User Resident: Electronically Signed by: KANE Shazia SOLOMON @ 10/18/2021 02:11 PM Normal [facility] CREATININEon 09-07-2021 Creatinine [Mass/Vol] 0.77 mg/dL Normal 0.55-1.02 [facility] Comment on above: Performed By: #### C IDALIA #### [facility] Laboratory [address] [place] [address] Dr. Adolph Clinton EGFR-AF SLOVENIAN >60 Normal >=60 [facility] Comment on above: Performed By: #### C IDALIA #### [facility] [address] [place] [address] Dr. Adolph Clinton EGFR-NON AF SLOVENIAN >60 Normal >=60 [facility] Comment on above: Performed By: #### C IDALIA #### [facility] [address] [place] [address] HEAD WO W CONon 2 CT HEAD WO W CON EXAMINATION: CT HEAD WO W CON HISTORY: Transient cerebral ischemia COMPARISON: None. TECHNIQUE: Multiple computed tomograms of the head were obtained with and without intravenous contrast enhancement. 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 The vasculature about the [place] of [place] appears grossly intact. IMPRESSION: There [...] by: KAILEE GARCIA Date: 2021-09-07 13:44 Normal [facility] ECHOCARDIO M/2D COMPLETEon 0 09-05-2021 ECHOCARDIO M/2D COMPLETE Patient: TEODORA DAILY Exam Date: 09/05/2021 : 1950 Gender:F Ordering : DR GERA GALEANO M.D. Admission #: [id number] Family : Order #: [id number] CLICK HERE TO VIEW EXAM ECHOCARDIOGRAM REPORT [...] Area(A4C): 12.70 cm2 Left Atrium Systolic Volume(A2C): 43608 mm3 Left Atrium Systolic Volume(A4C): 31276 mm3 Mitral Valve MV E to A [...] Garcia M.D. on 09/05/2021 at 20:08 Normal [facility] Q - DEJUAN SCREEN IFA W/RFL TIT ER IFAon 05-10-2021 DEJUAN SCREEN, IFA Negative Normal NEGATIVE [facility] Director Of Public Safety Comment on above: Order Comment: [facility] Testing performed at: [facility], [address], [address] [place], [address], Heel Shaver: Pedro Asencio MD [facility] Collection Date/Time: [facility] [...] AC-0: Negative International Consensus on DEJUAN Patterns (https://doi.org/10.1515/wnfq-8234-7643) For additional information, please refer to http://education.[employer])/faq/XEO602 (This link is being provided for informational/ educational purposes only.) Performed By: #### 7 832X, 249X #### [facility] Default [address] [place] [address] Q - SJOGREN'S ABS (SS-A,SS-B )on 05-10-2021 SJOGREN'S ANTIBODY (SS-A) <1.0 NEG Normal <1.0 NEG [facility] Director Of Public Safety Comment on above: Order Comment: [facility] performed at: [facility], [address], [address] [place], [address], Heel Shaver: Pedro Asencio MD [facility] Date/Time: [facility] Results Received Date/Time: [facility] Reported Date/Time: Performed By: #### 7 832X, 249X #### [facility] [address] [place] [address] SJOGREN'S ANTIBODY (SS-B) <1.0 NEG Normal <1.0 NEG [facility] Director Of Public Safety Comment on above: Order Comment: [facility] performed at: [facility], [facility], [address] [place], [address], Heel Shaver: Pedro Asencio MD [facility] Date/Time: [facility] Results Received Date/Time: [id number] [facility] Reported Date/Time: Performed By: #### 7 832X, 249X #### [facility] [address] [place] [address] Q - DEJUAN CASC [id number] CHROMATIN (NUCLEOSOMAL) ANTIBODY <1.0 NEG Normal <1.0 NEG [facility] Comment on above: Order Comment: [facility] performed at: [facility], [facility], [address] [facility], [address] [place], [address], Heel Shaver: Pedro Asencio MD [facility] Date/Time: [id number] [facility] Results Received Date/Time: [facility] Reported Date/Time: [...] 12% Sjogren's syndrome and 8% polymyositis. Ribonucleoprotein (BET TAKER) antibodies are to BET TAKER A and/or BET TAKER 68kD proteins; antibodies to one or both are present in >80% MCTD, 22% to 48% SLE, 14% systemic sclerosis, 12% Sjogren's and 8% polymyositis. Sm/BET TAKER antibodies are directed to epitopes formed in a complex of Sm and BET TAKER; antibodies to the Sm/BET TAKER complex are present in 54% to 94% MCTD, 30% SLE, 4% systemic sclerosis, and 9% Sjogren's and polymyositis. Sm antibody is present in 20% to 30% SLE, 8% MCTD, 10% polymyositis, 0% systemic sclerosis and 4% Sjogren's syndrome. Double stranded DNA, Chromatin, Ribonucleoprotein, Sm/BET TAKER complex and Sm antibodies are present in <2% of normal blood donors. The [facility] does not rule out autoimmune disease characterized by other autoantibody specificities such as rheumatoid arthritis, autoimmune hepatitis, primary biliary cholangitis, autoimmune thyroiditis, Charles Mix's disease, pernicious anemia, autoimmune neuropathies, vasculitis, celiac disease and bullous disease. Please contact your local [facility] laboratory if you are interested in additional testing. Performed By: #### % IN7, % #### [facility] [address] [place] [address] DNA (DS) ANTIBODY <[address] [facility] Comment on above: Order Comment: [facility] performed at: [facility], [address] [place] [address], [phone], Heel Shaver: Pedro Asencio MD [facility] Collection Date/Time: [facility] Results Received Date/Time: [facility] Reported Date/Time: Result Comment: IU/m L Interpretation < or = 4 Negative 5-9 Indeterminate > or = 10 Positive Performed By: #### % IN7, % #### [facility] [address] [place] [address] BET TAKER ANTIBODY 1.0 POS Abnormal <1.0 NEG [facility] Director Of Public Safety Comment on above: Order Comment: [facility] performed at: [facility], [address] [place] [address], [address] [place] [address], [phone], Heel Shaver: Pedro Asencio MD [facility] Date/Time: [facility] Results Received Date/Time: [facility] Reported Date/Time: Performed By: #### % IN7, % #### [facility] [address] [place] [address] SM ANTIBODY <1.0 NEG Normal <1.0 NEG [facility] Director Of Public Safety Comment on above: Order Comment: [facility] performed at: [facility], [address] [place] [address], [address] [place] [address], [address] [place] [address], Heel Shaver: Pedro Asencio MD [facility] Date/Time: [facility] Results Received Date/Time: [facility] Reported Date/Time: Performed By: #### % IN7, % #### [facility] [address] [place] [address] SM/BET TAKER ANTIBODY <1.0 NEG Normal <1.0 NEG [facility] Comment on above: Order Comment: [facility] Testing performed at: [facility], [facility], [address] [place] [address], [address] [place] [address], [address] [place] [address], Heel Shaver: Pedro Asencio MD [facility] Date/Time: [facility] Results Received Date/Time: [facility] Reported Date/Time: Performed By: #### % IN7, % #### [facility] [address] [place] [address] Q - DEJUAN MULTIPLEX W/ REFLEX TO 11 ANTIBODY CASCADEon 05-01-2021 ANACHOICE(R) SCREEN Positive Abnormal NEGATIVE [facility] Comment on above: Order Comment: [facility] performed at: [facility], [facility], [address] [facility], [address] [place] [address], [address] [place] [address], Heel Shaver: Pedro Asencio MD [facility] Date/Time: [facility] Results Received Date/Time: [facility] Reported Date/Time: Result Comment: A po sitive DEJUAN, Multiplex reflexes to the 3 Tiered Multiplex 11 Antibody [facility]. Testing in the [facility] stops at the first positive result and does not preclude additional positive results. Further laboratory testing may be considered if clinically indicated. For additional information, please refer to http://education.[employer] (formerly [employer])/faq/JSA958 (This link is being provided for informational/ educational purposes only.) Performed By: #### % IN7, % #### [facility] [address] [place] [address] Q - BET TAKER INTERPon 05-01-2021 INTERPRETATION SEE NOTE Normal [facility] Director Of Public Safety Comment on above: Order Comment: [facility] performed at: [facility], [facility], [address], [address] [facility], [place], [address], Heel Shaver: Pedro Asencio MD [facility] Date/Time: [id number] [facility] Results Received Date/Time: [facility] Reported Date/Time: Result Comment: BET TAKER antibody is found in patients with mixed [...] IN7, %, #### [facility] [address] [place] [address] Vital Signs Date Time Vital Sign Value Performing Clinician Facility 02-08-2022 13:05-0400 Body height 158.75 cm Staci Sierra Other [facility] Other 02-08-2022 13:05-0400 Body mass index (BMI) [Ratio] 33.29 kg/m2 Staci Esquivel Other [facility] Other 02-08-2022 13:05-0400 Body temperature 101 [degF] Staci Esquivel Other [facility] Other 02-08-2022 13:05-0400 Body weight 83.92 kg Staci Esquivel Other [facility] Other 02-08-2022 13:05-0400 Respiratory rate 18 /min Staci Esquivel Other [facility] Other 02-08-2022 13:05-0400 SaO2% (BldA) [Mass fraction] 95 % Staci Esquivel Other [facility] Other Encounters Encounter Date Encounter Type Care Provider Facility Start: 09-30-2023 End: 09-30-2023 ambulatory CHET PRETTYEN Not Available Start: 09-17-2023 End: 09-17-2023 ambulatory [facility] Start: 08-20-2023 End: 08-20-2023 ambulatory SKYE Lopez APLING Not Available Start: 07-14-2023 End: 07-14-2023 ambulatory EMIGDIO COURTNEY Not Available Start: 06-09-2023 End: 06-09-2023 ambulatory SKYE Lopez APLING Not Available Start: [...] 02-08-2022 End: 02-08-2022 ambulatory Staci Esquivel Other [facility] Other Start: 02-08-2022 Office outpatient ne w 20 minutes Staci Esquivel [facility] Start: 01-31-2022 End: 02-01-[address] DARYL BELTRAN . Facility:[facility] Start: 12-07-2021 End: 12-08-[address] GERA GALEANO Facility:[facility] Start: 10-16-2021 End: 10-17-2021 ambulatory PHYSICIAN UNKNOWN Facility:[facility] Start: 09-07-2021 End: 09-08-[address] GERA GALEANO Facility:[facility] Start: 09-05-2021 End: 09-06-[address] GERA GALEANO Facility:[facility] Payers Date Payer Category Payer Private Health Insurance [id number] 1950 Unknown [id number] 2.16.8 [id number] 1950 Unknown [id number] 2.16.84 0.1.607920.3.579.2.593 1950 Unknown [id number] 2.16.84 0.1.879693.3.579.2.593 1950 Unknown [id number] 2.16.84 0.1.717694.3.579.2.593 1950 Unknown [id number] 2.16.84 0.1.925437.3.579.2.593 1950 Unknown [id number] 2.16.84 0.1.487618.3.579.2.593 1950 Unknown [id number] 2.16.84 0.1.381199.3.579.2.593 1950 Unknown [id number] 2.16.84 0.1.153569.3.579.2.593 1950 Unknown [id number] 2.16.84 0.1.277381.3.579.2.1259 1950 Unknown [id number] 2.16.84 0.1.340295.3.579.2.1259 1950 Unknown [id number] 2.16.84 0.1.398636.3.579.2.1259 1950 Unknown [id number] 2.16.84 0.1.197634.3.579.2.1259 1950 Unknown [id number] 2.16.84 0.1.348671.3.579.2.1259 1950 Unknown [id number] 2.16.84 0.1.880239.3.579.2.1259 1950 Unknown [id number] 2.16.84 0.1.181895.3.579.2.1259 1950 Unknown [id number] 2.16.84 0.1.291353.3.579.2.1258 1950 Unknown [id number] 2.16.84 0.1.201903.3.579.2.9 1950 Unknown [id number] 2.16.840 .1.954215.3.579.2.1258 1950 Unknown [id number] 2.16.840 .1.948155.3.579.2.1259 Social History Date Type Detail Facility Sex Assigned At [facility] Other Progress note 09-17-2023 Note Date & Type Note Facility 09-17-2023 Note [place] [facility] Subjective Teodora Daily is a 73 [...] No swelling. Cervical (more content not included)... [facility] Evaluation note 02-08-2022 Note Date & Type [...] no improvement in 2 to 3 days [facility] Other Consultation note 01-31-2022 Note Date & [...] p.r.n. basis at the patient's discretion. [facility] History general Narrative - Reported Note Date & Type Note Facility History general Narrative - Reported Type Medical History osteoporosis Medical History herniated disc Medical History hypertrophic cardiomyopathy Surgical History Hip Replacement 2017 [facility] Other Summary Purpose Family History No Family History Records FoundNo Family History Records FoundNo Family History Records FoundNo Family History Records FoundNo Family History Records Found Advance Directives No Advanced Directives Records FoundNo Advanced Directives Records FoundNo Advanced Directives Records FoundNo Advanced Directives Records FoundNo Advanced Directives Records Found Additional Source Comments INFORMATION SOURCE (unrecogn ized section and content) DATE CREATED AUTHOR 05/13/2021 [facility] dical Specialist DATE CREATED AUTHOR AUTHOR'S ORGANIZ ATION 10/23/2021 [facility] DATE CREATED AUTHOR AUTHOR'S ORGANIZ ATION 08/03/2022 [facility] DATE CREATED AUTHOR AUTHOR'S ORGANIZ ATION 09/18/2023 [facility] DATE CREATED AUTHOR AUTHOR'S ORGANIZ ATION 10/05/2023 [facility] dical Specialists EPIC REASON FOR VISIT (unrecogniz [...] BE BASED ON THE PRIMARY CLINICAL RECORDS. [employer] provides no warranty or guarantee of the accuracy or completeness of information in this document.
== END 2023-10-20 09:49 | disposition home or self-care (01) ==
LOC: CARD 09:49
PROVIDERS: PCP Internal Medicine; Visit Provider Internal Medicine Interventional Cardiology
DX: R00.2 Palpitations (principal); R06.02 Shortness of breath
CPT/HCPCS: 93306

== ENCOUNTER 2023-11-04 14:15 | Outpatient (OUT) | payer MEDICARE, SELFPAY ==
--- NOTE | 2023-11-04 | CONS_ITS ---
CONSULTATION DATE: 11/04/2023 TO: Sven Peng M.D. CHIEF COMPLAINT: Includes severe bilateral lower back pain, worse on the right than left side. HISTORY: Patient describes 5-7/10 pain, sharp in nature, increased with activities such standing, walking and performing transitioning maneuvers. She feels most comfortable in the semi-recumbent position. Denies any change in bowel and bladder habits or new sensorimotor change in the lower extremities. She is intolerant to oral nonsteroidals. She continues to use Flexeril 10 mg daily p.r.n. and her ANGELLA on today?s visit was 24%. She was seen today complaining of pain higher up in her lower back, compared to her pain area prior to her RFA of the right superior gluteal nerve. She reports the pain seems have migrated higher up and seems to radiate to her right hip area. EXAM: Her exam is notable for patient having no clinical radiculopathy or myelopathy involving the lower extremities. Patient did have significant lumbar facet loading maneuvers occurring bilaterally, worse on the right than left side, with addition of myofascial spasm of the erector spinae muscle, worse on the right than left side. IMPRESSION: Our impression is patient with chronic pain secondary to lumbosacral spondylosis L4-S1, right worse than left, and myofascial dysfunction with myalgia. RECOMMENDATIONS: I recommend that she increasing Flexeril 10 mg pills one b.i.d., to proceed with a diagnostic bilateral L4-5 and L5-S1 medial branch block under fluoroscopic guidance, and to use Voltaren gel over her right knee. As part of providing excellent, safe, comprehensive care, the following was completed at our patient's visit: 1. A medication reconciliation and review to ensure accurate knowledge of current/active medications, including asking our patients to inform us about any brfi-jad-tfdfnaz medications or herbal remedies/nutritional supplements/alternative remedies. 2. A review to specifically ensure our patients have had annual screening for: elevated body mass index (BMI, see intake chart for exact total), tobacco use, screening for depression, and screening for unhealthy alcohol use. When screening is concerning, patients are provided with education and the specific recommendation to discuss the concerning health issue and treatment options with their primary care provider. DANICA
== END 2023-11-04 14:16 | disposition home or self-care (01) ==
LOC: PM 14:16
PROVIDERS: PCP Internal Medicine; Visit Provider Nurse Practitioner
DX: M47.816 Spondylosis without myelopathy or radiculopathy, lumbar region (principal); M79.18 Myalgia, other site
CPT/HCPCS: G0463

== ENCOUNTER 2023-11-18 07:47 | Day surgery (SDC) | payer MEDICARE, SELFPAY ==
--- OUTSIDE RECORDS SUMMARY | 2023-11-18 07:51 | XMS_ITS | CCD ---
Author Organization [facility] CliniSyny Care Team Providers Care Set Up And Lay Out Inspector Name Role Phone UNKNOWN, PHYSICIAN Referring Unavailable UNKNOWN, PHYSICIAN Primary Care Unavailable MOUKARBEL, CHRIS V Admitting Unavailable MOUKARBEL, CHRIS V Attending Unavailable Staic Esquivel Unavailable ABDIAS ., ASHTYN Admitting Unavailable ABDIAS ., ASHTYN Attending Unavailable ANNA .THUY Consulting Unavailabl e FROYLAN, DR BOSS Primary Care Unavailable KLIPPJESUS LUEVANO Consulting Unavailable BELTRAN ., DR DARYL Juarez Attending Unavailable BELTRAN ., DR DARYL Juarez Admitting Unavailable GALEANO, DR BOSS Primary Care Unavailable GALEANO, DR BOSS Consulting Unavailable JULIO WOO Consulting Unavailable LAKSHMIPATHY, NARENDRANATH Admitting Unava ilable GALEANO, DR BOSS Primary Care Unavailable LAKSHMIPATHY, NARRADHA Attending Unava ilable GALEANO, DR BOSS Admitting [...] Admitting Unavailable MISC, DR BEEBE Consulting Unavailable FROYLAN, DR BOSS Primary Care Unavailable FROYLAN, DR BOSS Attending Unavailable LINDSEY RAYMUNDO Attending Unavailable GERA GALEANO Referring Unavailable APLINGSKYE Attending Unavailable CELSA MANZANARES Attending Unavailable APLINGSKYE Referring Unavailable EMIGDIO COURTNEY Attending Unavailable APLSKYE HELTON Attending Unavailable LINDSEY RAYMUNDO Attending Unavailable APLINGSKYE Referring Unavailable APLINGSKYE Attending Unavailable CHET MCLAUGHLIN Attending Unavailable CHET MCLAUGHLIN Referring Unavailable MOUKATIMUR, CHRIS Attending Unavailable Allergies Allergy Classification Reported Allergen(s) Allergy Type Date of Onset Reaction(s) Facility (1 source) oxyCODONE Drug Allergy [facility] Other (1 source) Sulfacetamide Drug Allergy neck swelled, [facility] [employer] Other (2 sources) oxyCODONE Drug Allergy [facility] Repository (2 sources) Sulfonamides (Antibiotic) Drug allergy (disorder) [facility] Repository (1 source) Sulfonamides (Antibiotic); Translations: [SULFA (SULFONAMIDE ANTIBIOTICS)] Propensity to adverse reactions to drug (disorder) 12-26-19 [facility] Rep[facility] Medications Current Medications Medication Drug Class(es) [...] 04-05-2022 Episodic Other aftercare (1 source) Other meterman (current) drug therapy; Translations: [OTH RESIDENTIAL CURRENT DRUG THERAPY] Onset: 04-09-2022 Episodic Other [...] Test Name Value Interpretation Reference Range Facility 36on 11-06-2023 36 Regarding echo resul t from 10/21/2023: MD Lakisha London MA Her echo was ok, I want her to get a stress test (dx shortness of breath), if she cannot do treadmill then [employer] nuclear. Spoke with patient and made her aware. She agreed to treadmill stress test. Order faxed to [facility]. Normal [facility] Office Visiton 09-17-2023 Follow-up visit [id number] Teodora Daily 1950 F Date Provider Department Center 09/17/2023 [facility]RIS GARCIA [facility] Family History Problem Relation Age of Onset Other Mother Hypertrophic cardiomyopathy Sister Stroke Sister Other Sister Hypertrophic cardiomyopathy Brother Family Status - Relation Status Age at Mother Sister Brother Level of Service:90554 NE OFFICE/OUTPATIENT ESTABLISHED MOD MDM [address] [facility] FREE T3on 07-24-2022 FREE T3 2.66 pg/mlL Normal 2.18-3.98 [facility] Comment on above: Performed By: #### T , FT3 #### [facility] [address] [place] [address] Dr. Adolph Clinton FREE T4on 07-24-2022 Free T4 [Mass/Vol] 0.85 ng/dL Normal 0.76-1.46 [facility] Comment on above: Performed By: #### F T4 #### [facility] [address] [place], [place] [address] Dr. Adolph Clinton TSHon 07-24-2022 TSH 2.124 uIU/mL Normal 0.358-3.740 [facility] Comment on above: Performed By: #### T SH, FT3 #### [facility] [address] [place], [place] [address] Dr. Adolph Clinton XR FINGER MIN 2 [...] JESUS FELIZ Date: 2022-04-05 19:19 Normal [facility] COVID Quick Testingon 2021 Result Negative [facility] Other Quick Fluon 02-08-2022 FLUAV Ab CF (S) [Titer] Negative [facility] Other FLUBV Ab CF (S) [Titer] Negative [facility] Other MG MAMM SCREEN 3D SHARAD CADon 12-07-2021 MG MAMM SCREEN 3D SHARAD CAD Patient: JORGETEODORA Exam Date: 12/07/2021 : 1950 Gender:F Ordering : DR GERA GALEANO M.D. Admission #: [id number] Family : DR. TEODORA GUAJARDO D.O. Order #: [id number] CLICK HERE TO VIEW EXAM RADIOLOGY REPORT [...] uterine cancer at age 58. LOCATION: [facility] BREAST COMPOSITION: Scattered areas fibroglandular density. [...] Salguero M.D. on 12/07/2021 at 12:13 Normal [facility] XR DEXA BONE DENSITYon 12-07 XR [...] by: BRYAN SALGUERO Date: 2021-12-07 15:10 Normal [facility] MRI CARDIAC W WO CONTRASTon 10-16-2021 MRI CARDIAC W WO CONTRAST [facility] Department of Radiology [address] [place] [id number] ===== Patient Name: TEODORA DAILY : 1950 Sex: F Age: Race: White Pt. Location: 30 Patient Status: D Ordered Date: 09/25/2021 8:10:00 AM Completed Date: 10/16/2021 12:33 PM Requesting Provider: CHRIS GARCIA V Attending Provider: Report Copy To: Signs & Symptoms: I51.7 Cardiomegaly I10 History: [place], L hip replacement Comments: Exam: MRI CARDIAC [...] 2. Electronically signed: Kane Solomon. Transcribed by: [email or web address], User Resident: Electronically Signed by: KANE SOLOMON @ 10/18/2021 02:11 PM Normal The [facility] CREATININEon 09-07-2021 Creatinine [Mass/Vol] 0.77 mg/dL Normal 0.55-1.02 [facility] Comment on above: Performed By: #### C IDALIA #### [facility] [address] [place] [address] Dr. Adolph Clinton EGFR-AF HAITIAN >60 Normal >=60 [facility] Comment on above: Performed By: #### C IDALIA #### [facility] [address] [place] [address] Dr. Adolph Clinton EGFR-NON AF HAITIAN >60 Normal >=60 [facility] Comment on above: Performed By: #### C IDALIA #### [facility] [address] [place] [address] HEAD WO W CONon 2 CT HEAD WO W CON EXAMINATION: CT HEAD WO W CON HISTORY: Transient cerebral ischemia COMPARISON: None. TECHNIQUE: Multiple computed tomograms of the head were obtained with and without intravenous contrast enhancement. 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 The vasculature about the [place] of [place] appears grossly intact. IMPRESSION: There [...] by: KAILEE GARCIA Date: 2021-09-07 13:44 Normal [facility] ECHOCARDIO M/2D COMPLETEon 0 09-05-2021 ECHOCARDIO M/2D COMPLETE Patient: TEODORA DAILY Exam Date: 09/05/2021 : 1950 Gender:F Ordering : DR GERA GALEANO M.D. Admission #: [id number] Family : Order #: [id number] CLICK HERE TO VIEW EXAM ECHOCARDIOGRAM REPORT [...] Area(A4C): 12.70 cm2 Left Atrium Systolic Volume(A2C): 79583 mm3 Left Atrium Systolic Volume(A4C): 60530 mm3 Mitral Valve MV E to A [...] M.D. on 09/05/2021 at 20:08 Normal [facility] Q - DEJUAN SCREEN IFA W/RFL TIT ER IFAon 05-10-2021 DEJUAN SCREEN, IFA Negative Normal NEGATIVE [facility] [employer] Tender Comment on above: Order Comment: [facility] performed at: [facility], [facility], [address] , [address] [place], [address], Chemical Etch Operator: Pedro Asencio MD [facility] Collection Date/Time: [facility] [...] AC-0: Negative International Consensus on DEJUAN Patterns (https://doi.org/10.1515/tmwd-3970-1154) For additional information, please refer to http://education.PreciouStatus.iOT[employer] Inc/faq/UJR301 (This link is being provided for informational/ educational purposes only.) Performed By: #### 7 832X, 249X #### [facility] Default [address] [place] [address] Q - SJOGREN'S ABS (SS-A,SS-B )on 05-10-2021 SJOGREN'S ANTIBODY (SS-A) <1.0 NEG Normal <1.0 NEG [facility] [employer] Tender Comment on above: Order Comment: [facility] performed at: [employer], [facility], [address], [address] [place], [address], Chemical Etch Operator: Pedro Asencio MD [facility] Date/Time: [facility] Results Received Date/Time: [facility] Reported Date/Time: Performed By: #### 7 832X, 249X #### [facility] [address] [place] [address] SJOGREN'S ANTIBODY (SS-B) <1.0 NEG Normal <1.0 NEG [facility] [employer] Machine Tender Comment on above: Order Comment: [facility] performed at: [employer], [facility], [address] [place] [address], [address] [place] [address], [address] [place] [address], Chemical Etch Operator: Pedro Asencio MD [facility] Date/Time: [facility] Results Received Date/Time: [facility] Reported Date/Time: Performed By: #### 7 832X, 249X #### [facility] [address] [place] [address] Q - DEJUAN CASC [id number] CHROMATIN (NUCLEOSOMAL) ANTIBODY <1.0 NEG Normal <1.0 NEG [facility] [employer] Tender Comment on above: Order Comment: [facility] performed at: [employer], [facility], [address] [place] [address], [address] [place] [address], [address] [place] [address], Chemical Etch Operator: Pedro Asencio MD [facility] Date/Time: [facility] [...] 12% Sjogren's syndrome and 8% polymyositis. Ribonucleoprotein (ROOF SERVICE TECHNICIAN) antibodies are to ROOF SERVICE TECHNICIAN A and/or ROOF SERVICE TECHNICIAN 68kD proteins; antibodies to one or both are present in >80% MCTD, 22% to 48% SLE, 14% systemic sclerosis, 12% Sjogren's and 8% polymyositis. Sm/ROOF SERVICE TECHNICIAN antibodies are directed to epitopes formed in a complex of Sm and ROOF SERVICE TECHNICIAN; antibodies to the Sm/ROOF SERVICE TECHNICIAN complex are present in 54% to 94% MCTD, 30% SLE, 4% systemic sclerosis, and 9% Sjogren's and polymyositis. Sm antibody is present in 20% to 30% SLE, 8% MCTD, 10% polymyositis, 0% systemic sclerosis and 4% Sjogren's syndrome. Double stranded DNA, Chromatin, Ribonucleoprotein, Sm/ROOF SERVICE TECHNICIAN complex and Sm antibodies are present in <2% of normal blood donors. The [place] does not rule out autoimmune disease characterized by other autoantibody specificities such as rheumatoid arthritis, autoimmune hepatitis, primary biliary cholangitis, autoimmune thyroiditis, South Heart's disease, pernicious anemia, autoimmune neuropathies, vasculitis, celiac disease and bullous disease. Please contact your local [facility] laboratory if you are interested in additional testing. Performed By: #### % IN7, % #### [facility] [address] [place] [address] DNA (DS) ANTIBODY <1 Normal [facility] [employer] Machine Tender Comment on above: Order Comment: [facility] performed at: [facility], [address] [place] [address], [address] [place] [address], [phone], Chemical Etch Operator: Pedro Asencio MD [facility] Date/Time: [facility] Results Received Date/Time: [facility] Reported Date/Time: Result Comment: IU/m L Interpretation < or = 4 Negative 5-9 Indeterminate > or = 10 Positive Performed By: #### % IN7, % #### [facility] Default [address] [place] [address] ROOF SERVICE TECHNICIAN ANTIBODY 1.0 POS Abnormal <1.0 NEG [facility] [employer] Machine Tender Comment on above: Order Comment: [facility] performed at: [facility] [facility], [address] [facility], [address] [place] [address], [address], Chemical Etch Operator: Pedro Asencio MD [facility] Date/Time: [facility] Results Received Date/Time: [facility] Reported Date/Time: Performed By: #### % IN7, % #### [facility] [address] [place] [address] SM ANTIBODY <1.0 NEG Normal <1.0 NEG [facility] [employer] Machine Tender Comment on above: Order Comment: [facility] performed at: [facility], [facility], [address] , [address] [place] [address], [address] [place] [address], Chemical Etch Operator: Pedro Asencio MD [facility] Date/Time: [facility] Results Received Date/Time: [facility] Reported Date/Time: Performed By: #### % IN7, % #### [facility] Default [address] [place] [address] SM/ROOF SERVICE TECHNICIAN ANTIBODY <1.0 NEG Normal <1.0 NEG [facility] Specialist Comment on above: Order Comment: [facility] performed at: [employer] [facility], [address] , [address] [place] [address], [address] [place] [address], Chemical Etch Operator: Pedro Asencio MD [facility] Date/Time: [facility] Results Received Date/Time: [facility] Reported Date/Time: Performed By: #### % IN7, % #### [facility] [address] [place] [address] Q - DEJUAN MULTIPLEX W/ REFLEX TO 11 ANTIBODY CASCADEon 05-01-2021 ANACHOICE(R) SCREEN Positive Abnormal NEGATIVE [facility] Specialist Comment on above: Order Comment: [facility] performed at: [employer] [facility], [address] , [address] [place] [address], [address] [place] [address], Chemical Etch Operator: Pedro Asencio MD [facility] Date/Time: [facility] Results Received Date/Time: [facility] Reported Date/Time: Result Comment: A po sitive DEJUAN, Multiplex reflexes to the 3 Tiered Multiplex 11 Antibody [facility]. Testing in the [place] stops at the first positive result and does not preclude additional positive results. Further laboratory testing may be considered if clinically indicated. For additional information, please refer to http://education.PreciouStatus.iOTOS, Inc/faq/YEQ672 (This link is being provided for informational/ educational purposes only.) Performed By: #### % IN7, % #### [facility] [address] [place] [address] Q - ROOF SERVICE TECHNICIAN INTERPon 05-01-2021 INTERPRETATION SEE NOTE Normal [facility] [employer] Machine Tender Comment on above: Order Comment: [facility] performed at: [place], [address] [facility], [address] [place], [address], Chemical Etch Operator: Pedro Asencio MD [facility] Date/Time: [id number] [facility] Results Received Date/Time: [facility] Reported Date/Time: Result Comment: ROOF SERVICE TECHNICIAN antibody is found in patients with mixed [...] IN7, % #### [facility] [address] [place] [address] Vital Signs Date Time Vital Sign Value Performing Clinician Facility 02-08-2022 13:05-0400 Body height 158.75 cm Staci Luamond Other [facility] Other 02-08-2022 13:05-0400 Body mass index (BMI) [Ratio] 33.29 kg/m2 Staci Luamond Other [facility] Other 02-08-2022 13:05-0400 Body temperature 101 [degF] Staci Laumond Other [facility] Other 02-08-2022 13:05-0400 Body weight 83.92 kg Staci Luamond Other [facility] Other 02-08-2022 13:05-0400 Respiratory rate 18 /min Staci Esquivel Other [facility] Other 02-08-2022 13:05-0400 SaO2% (BldA) [Mass fraction] 95 % Staci Esquivel Other [facility] Other Encounters Encounter Date Encounter Type Care Provider Facility Start: 09-30-2023 End: 09-30-2023 ambulatory CHET MCLAUGHLIN Not Available Start: 09-17-2023 End: 09-17-2023 ambulatory SKYE B APLING Not Available Start: 09-17-2023 End: 09-17-2023 ambulatory [facility] Start: 08-20-2023 End: 08-20-2023 ambulatory SKYE B APLING Not Available Start: 07-14-2023 End: 07-14-2023 ambulatory EMIGDIO ALCANTARALOKESH Not Available Start: 06-09-2023 End: 06-09-2023 ambulatory SKYE B APLING Not Available Start: 05-19-2023 End: 05-19-2023 ambulatory ILNDSEY H TIMMIS Not Available Start: 03-19-2023 End: 03-19-2023 ambulatory LINDSEY H TIMMIS Not Available Start: 03-18-2023 End: 03-18-2023 ambulatory CELSA MANZANARES Not Available Start: 07-24-2022 End: 07-25-[address] GERA GALEANO Facility:[facility] Start: 06-25-2022 ambulatory OVIDIO LANDRUM Facility:[facility] Start: 04-05-2022 End: 04-05-2022 ambulatory ASHTYN CALERO . Facility:[facility] Start: 02-08-2022 End: 02-08-2022 ambulatory Staci Esquivel Other [facility] Other Start: 02-08-2022 Office outpatient ne w 20 minutes Staci Esquivel [facility] Start: 01-31-2022 End: 02-01-[address] DARYL BELTRAN . Facility:[facility] Start: 12-07-2021 End: 12-08-[address] GERA GALEANO Facility:[facility] Start: 10-16-2021 End: 10-17-2021 ambulatory PHYSICIAN UNKNOWN Facility:[facility] Start: 09-07-2021 End: 09-08-[address] GERA GALEANO Facility:[facility] Start: 09-05-2021 End: 09-06-[address] GERA GALEANO Facility:[facility] Payers Date Payer Category Payer Private Health Insurance [id number] 1950 Unknown [id number] 2.16.8 [id number] 1950 Unknown [id number] 2.16.84 0.1.980461.3.579.2.593 1950 Unknown [id number] 2.16.84 0.1.142777.3.579.2.593 1950 Unknown [id number] 2.16.84 0.1.585016.3.579.2.593 1950 Unknown [id number] 2.16.84 0.1.672620.3.579.2.593 1950 Unknown [id number] 2.16.84 0.1.120941.3.579.2.593 1950 Unknown [id number] 2.16.84 0.1.690896.3.579.2.593 1950 Unknown [id number] 2.16.84 0.1.670475.3.579.2.593 1950 Unknown [id number] 2.16.84 0.1.976969.3.579.2.1259 1950 Unknown [id number] 2.16.84 0.1.927955.3.579.2.1259 1950 Unknown [id number] 2.16.84 0.1.843135.3.579.2.1259 1950 Unknown [id number] 2.16.84 0.1.601715.3.579.2.1258 1950 Unknown [id number] 2.16.84 0.1.615268.3.579.2.1258 1950 Unknown [id number] 2.16.84 0.1.418196.3.579.2.1258 1950 Unknown [id number] 2.16.84 0.1.134886.3.579.2.1258 1950 Unknown [id number] 2.16.84 0.1.269624.3.579.2.1258 1950 Unknown [id number] 2.16.84 0.1.274523.3.579.2.1258 1950 Unknown [id number] 2.16.840 .1.364794.3.579.2.1258 1950 Unknown [id number] 2.16.840 .1.642626.3.579.2.1259 Social History Date Type Detail Facility Sex Assigned At [facility] Other Progress note 09-17-2023 Note Date & Type Note Facility 09-17-2023 Note [place] [facility] - [facility] Subjective Teodora Daily is a 73 [...] No swelling. Cervical (more content not included)... [facility] Evaluation note 02-08-2022 Note Date & Type [...] no improvement in 2 to 3 days [facility] Other Consultation note 01-31-2022 Note Date & [...] p.r.n. basis at the patient's discretion. [facility] History general Narrative - Reported Note Date & Type Note Facility History general Narrative - Reported Type Medical History osteoporosis Medical History herniated disc Medical History hypertrophic cardiomyopathy Surgical History Hip Replacement 2018 [facility] Other Summary Purpose Family History No Family History Records FoundNo Family History Records FoundNo Family History Records FoundNo Family History Records FoundNo Family History Records Found Advance Directives No Advanced Directives Records FoundNo Advanced Directives Records FoundNo Advanced Directives Records FoundNo Advanced Directives Records FoundNo Advanced Directives Records Found Additional Source Comments INFORMATION SOURCE (unrecogn ized section and content) DATE CREATED AUTHOR 05/13/2021 [facility] DATE CREATED AUTHOR AUTHOR'S ORGANIZ ATION 10/23/2021 [facility] DATE CREATED AUTHOR AUTHOR'S ORGANIZ ATION 08/03/2022 [facility] DATE CREATED AUTHOR AUTHOR'S ORGANIZ ATION 10/05/2023 [facility] EPIC DATE CREATED AUTHOR AUTHOR'S ORGANIZ ATION 11/10/2023 [facility] REASON FOR VISIT (unrecogniz ed section and [...] BE BASED ON THE PRIMARY CLINICAL RECORDS. [employer] provides no warranty or guarantee of the accuracy or completeness of information in this document.
[2023-11-18 08:20] VITALS: BP 159/85; PULSE 82; TEMP 36.2; O2SAT 97
[2023-11-18 08:59] VITALS: BP 153/65; BP 162/75; PULSE 77; PULSE 81; O2SAT 93
[2023-11-18] MEDS: BUPIVACAINE HCL 0.25% PF 25 MG/10 ML VIAL 5 ML INJ (09:03)
--- NOTE | 2023-11-18 09:33 | W.PM.PROCNOT ---
Date of procedure: 11/18/23 Pre-op diagnosis: Lumbar spondylosis Post-op diagnosis: same as pre-op Procedure: Bilateral lumbar 4/5, 5/S1 medial branch block Under fluoroscopic guidance Solution injected: 2millilitersMarcaine 0.25% Anesthesia :none Immediate complications none Time out process compliant After informed consent obtained from the patient placed in the Prone proposition . area was prepped and draped in a sterile fashion using Cloraprep .25 gauge spinal needle inserted over each of the above mentioned target areas . [place] were directed towards the target under fluoroscopic guidance . after encountering each of the targets , no indication of intravascular intraneuronal or intrathecal needle tip placement. Then 0 .5 to 1 Milliliter was injected at each level. [place] removed postoperatively. patient transferred to recovery in stable condition to be discharged home after meeting criteria Anesthesia: Local Surgeon: Marion Abraham Condition: stable Disposition: PACU
== END 2023-11-18 09:06 | disposition home or self-care (01) ==
LOC: SURGOUT 07:47
PROVIDERS: PCP Internal Medicine; Visit Provider Anesthesiology Pain Medicine
DX: M47.816 Spondylosis without myelopathy or radiculopathy, lumbar region (principal)
CPT/HCPCS: 64493; 64494; J0665

== ENCOUNTER 2023-11-20 14:35 | Outpatient (OUT) | payer MEDICARE, SELFPAY ==
--- OUTSIDE RECORDS SUMMARY | 2023-11-20 14:50 | XMS_ITS | CCD ---
Author Organization 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 Name Role Phone UNKNOWN, PHYSICIAN Referring Unavailable UNKNOWN, PHYSICIAN Primary Care Unavailable MOUKARBEL, CHRIS V Admitting Unavailable MOUKARBEL, CHRIS V Attending Unavailable Staci Esquivel Unavailable ABDIAS [...] Reaction(s) Facility (1 source) oxyCODONE Drug Allergy [employer] Other (1 source) Sulfacetamide Drug Allergy neck swelled, [facility] [employer] [facility] [employer] Other (2 sources) oxyCODONE Drug Allergy [facility] Repository (2 sources) Sulfonamides (Antibiotic) Drug allergy (disorder) [facility] Repository (1 source) Sulfonamides (Antibiotic); Translations: [SULFA (SULFONAMIDE ANTIBIOTICS)] Propensity to adverse reactions to drug (disorder) 12-26-19 [facility] Repository Medications Current Medications Medication Drug [...] 04-05-2022 Episodic Other aftercare (1 source) Other group home (current) drug therapy; Translations: [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 Spoke with patient and made her aware. She agreed to treadmill stress test. Order faxed to [facility]. Normal [facility] Office Visiton 09-17-2023 Follow-up visit [id number] Teodora Daily 1950 F Date Provider Department Center 09/17/2023 [facility] GARCIA [facility] Family History Problem Relation Age of Onset Other Mother Hypertrophic cardiomyopathy Sister Stroke Sister Other Sister Hypertrophic cardiomyopathy Brother Family Status - Relation Status Age at Mother Sister Brother Level of Service:28289 NE OFFICE/OUTPATIENT ESTABLISHED MOD MDM 30 MIN [facility] FREE T3on 07-24-2022 FREE T3 2.66 pg/mlL Normal 2.18-3.98 [facility] Comment on above: Performed By: #### T , FT3 #### [facility] [address] [place] [address] Dr. Adolph Clinton FREE T4on 07-24-2022 Free T4 [Mass/Vol] 0.85 ng/dL Normal 0.76-1.[address] [facility] Comment on above: Performed By: #### F T4 #### [facility] [address] [place], [place] [address] Dr. Adolph Clinton TSHon 07-24-2022 TSH 2.124 uIU/mL Normal 0.358-3.740 [facility] Comment on above: Performed By: #### T SH, FT3 #### [facility] [address] [place], [place] [address] Dr. Adolph Clinton XR FINGER MIN 2 [...] JESUS FELIZ Date: 2022-04-05 19:19 Normal [facility] COVID Quick Testingon 2021 Result Negative [facility] Other Quick Fluon 02-08-2022 FLUAV Ab CF (S) [Titer] Negative [facility] Other FLUBV Ab CF (S) [Titer] Negative [facility] Other MG MAMM SCREEN 3D SHARAD CADon 12-07-2021 MG MAMM SCREEN 3D SHARAD CAD Patient: JORGETEODORA Exam Date: 12/07/2021 : 1950 Gender:F Ordering : DR GERA GALEANO M.D. Admission #: [id number] Family : DR. TEODORA GUAJARDO D.O. Order #: [id number] CLICK HERE TO VIEW EXAM RADIOLOGY REPORT [...] uterine cancer at age 58. LOCATION: [facility] BREAST COMPOSITION: Scattered areas fibroglandular density. FINDINGS: [...] Salguero M.D. on 12/07/2021 at 12:13 Normal [facility] XR DEXA BONE DENSITYon 12-07 XR [...] by: BRYAN SALGUERO Date: 2021-12-07 15:10 Normal [facility] MRI CARDIAC W WO CONTRASTon 10-16-2021 MRI CARDIAC W WO CONTRAST [facility] Department of Radiology [address] [place] [id number] ===== Patient Name: TEODORA DAILY : 1950 Sex: F Age: Race: White Pt. Location: 30 Patient Status: D Ordered Date: 09/25/2021 8:10:00 AM Completed Date: 10/16/2021 12:33 PM Requesting Provider: CHRIS GARCIA V Attending Provider: Report Copy To: Signs & Symptoms: I51.7 Cardiomegaly I10 History: [place], [place] hip replacement Comments: Exam: MRI CARDIAC [...] 2. Electronically signed: Kane Solomon. Transcribed by: [email or web address], User Resident: Electronically Signed by: KANE SOLOMON @ 10/18/2021 02:11 PM Normal [facility] CREATININEon 09-07-2021 Creatinine [Mass/Vol] 0.77 mg/dL Normal 0.55-1.02 [facility] Comment on above: Performed By: #### C IDALIA #### [facility] [address] [place] [address] Dr. Adolph Clinton EGFR-AF ITALIAN >60 Normal >=[address] [facility] Comment on above: Performed By: #### C IDALIA #### [facility] [address] [place] [address] Dr. Adolph Clinton EGFR-NON AF ITALIAN >60 Normal >=60 [facility] Comment on above: Performed By: #### C IDALIA #### [facility] [address] [place] [address] HEAD WO W CONon 2 CT HEAD WO W CON EXAMINATION: CT HEAD WO W CON HISTORY: Transient cerebral ischemia COMPARISON: None. TECHNIQUE: Multiple computed tomograms of the head were obtained with and without intravenous contrast enhancement. 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 The vasculature about the [place] of [place] appears grossly intact. IMPRESSION: There [...] by: KAILEE GARCIA Date: 2021-09-07 13:44 Normal [facility] ECHOCARDIO M/2D COMPLETEon 0 09-05-2021 ECHOCARDIO M/2D COMPLETE Patient: TEODORA DAILY Exam Date: 09/05/2021 : 1950 Gender:F Ordering : DR GERA GALEANO M.D. Admission #: [id number] Family : Order #: [id number] CLICK HERE TO VIEW EXAM ECHOCARDIOGRAM REPORT [...] Area(A4C): 12.70 cm2 Left Atrium Systolic Volume(A2C): 49519 mm3 Left Atrium Systolic Volume(A4C): 92454 mm3 Mitral Valve MV E to A [...] M.D. on 09/05/2021 at 20:08 Normal [facility] Q - DEJUAN SCREEN IFA W/RFL TIT ER IFAon 05-10-2021 DEJUAN SCREEN, IFA Negative Normal NEGATIVE [facility] Paper Cutting Machine Operator Comment on above: Order Comment: [facility] Testing performed at: [employer] [facility], [address] , [address] [place], [address], Steaming Machine Operator: Pedro Asencio MD [facility] Collection Date/Time: [facility] Results Received Date/Time: [facility] Reported Date/Time: Result Comment: EDJUAN IFA is a first line screen for [...] AC-0: Negative International Consensus on DEJUAN Patterns (https://doi.org/10.1515/nsfc-1322-0747) For additional information, please refer to http://education.[employer].com.[employer]/faq/LUN331 (This link is being provided for informational/ educational purposes only.) Performed By: #### 7 832X, 249X #### [facility] [address] [place] [address] Q - SJOGREN'S ABS (SS-A,SS-B )on 05-10-2021 SJOGREN'S ANTIBODY (SS-A) <1.0 NEG Normal <1.0 NEG [facility] [employer] Machine Operator Comment on above: Order Comment: [facility] performed at: [employer] [facility], [address], [address] [place], [address], Steaming Machine Operator: Pedro Asencio MD [facility] Collection Date/Time: [facility] Results Received Date/Time: [facility] Reported Date/Time: Performed By: #### 7 832X, 249X #### [facility] [address] [place] [address] SJOGREN'S ANTIBODY (SS-B) <1.0 NEG Normal <1.0 NEG [facility] [employer] Cutting Machine Operator Comment on above: Order Comment: [facility] performed at: [employer] [facility], [address] [place] [address], [address] [place] [address], [address] [place] [address], Steaming Machine Operator: Pedro Asencio MD [facility] Collection Date/Time: [facility] Results Received Date/Time: [facility] Reported Date/Time: Performed By: #### 7 832X, 249X #### [facility] [address] [place] [address] Q - DEJUAN CASC [id number] CHROMATIN (NUCLEOSOMAL) ANTIBODY <1.0 NEG Normal <1.0 NEG [facility] Paper Cutting Machine Operator Comment on above: Order Comment: [facility] performed at: [employer] [facility], [address] [place] [address], [address] [place] [address], [address] [place] [address], Steaming Machine Operator: Pedro Asencio MD [facility] Collection Date/Time: [...] 12% Sjogren's syndrome and 8% polymyositis. Ribonucleoprotein (VACUUM EVAPORATION OPERATOR) antibodies are to VACUUM EVAPORATION OPERATOR A and/or VACUUM EVAPORATION OPERATOR 68kD proteins; antibodies to one or both are present in >80% MCTD, 22% to 48% SLE, 14% systemic sclerosis, 12% Sjogren's and 8% polymyositis. Sm/VACUUM EVAPORATION OPERATOR antibodies are directed to epitopes formed in a complex of Sm and VACUUM EVAPORATION OPERATOR; antibodies to the Sm/VACUUM EVAPORATION OPERATOR complex are present in 54% to 94% MCTD, 30% SLE, 4% systemic sclerosis, and 9% Sjogren's and polymyositis. Sm antibody is present in 20% to 30% SLE, 8% MCTD, 10% polymyositis, 0% systemic sclerosis and 4% Sjogren's syndrome. Double stranded DNA, Chromatin, Ribonucleoprotein, Sm/VACUUM EVAPORATION OPERATOR complex and Sm antibodies are present in <2% of normal blood donors. The Howard does not rule out autoimmune disease characterized by other autoantibody specificities such as rheumatoid arthritis, autoimmune hepatitis, primary biliary cholangitis, autoimmune thyroiditis, De Baca's disease, pernicious anemia, autoimmune neuropathies, vasculitis, celiac disease and bullous disease. Please contact your local [employer] laboratory if you are interested in additional testing. Performed By: #### % IN7, % #### [facility] [address] [place] [address] DNA (DS) ANTIBODY <1 Normal [facility] Paper Cutting Machine Operator Comment on above: Order Comment: [facility] Testing performed at: [employer] [facility], [address] [place] [address], [address] [place] [address], [phone], Steaming Machine Operator: Pedro Asencio MD [facility] Collection Date/Time: [facility] Results Received Date/Time: [facility] Reported Date/Time: Result Comment: IU/m L Interpretation < or = 4 Negative 5-9 Indeterminate > or = 10 Positive Performed By: #### % IN7, % #### [facility] [address] [place] [address] VACUUM EVAPORATION OPERATOR ANTIBODY 1.0 POS Abnormal <1.0 NEG [facility] Paper Cutting Machine Operator Comment on above: Order Comment: [facility] performed at: [employer] [facility], [address] [facility], [address] [place] [address], [phone], Steaming Machine Operator: Pedro Asencio MD [facility] Collection Date/Time: [facility] Results Received Date/Time: [facility] Reported Date/Time: Performed By: #### % IN7, % #### [facility] [address] [place] [address] SM ANTIBODY <1.0 NEG Normal <1.0 NEG [facility] Paper Cutting Machine Operator Comment on above: Order Comment: [facility] performed at: [employer] [facility], [address] , [address] [place] [address], [address] [place] [address], Steaming Machine Operator: Pedro Asencio MD [facility] Collection Date/Time: [facility] Results Received Date/Time: [facility] Reported Date/Time: Performed By: #### % IN7, % #### [facility] [address] [place] [address] SM/VACUUM EVAPORATION OPERATOR ANTIBODY <1.0 NEG Normal <1.0 NEG [facility] Specialist Comment on above: Order Comment: [facility] performed at: [employer] [facility], [address] , [address] [place] [address], [address] [place] [address], Steaming Machine Operator: Pedro Asencio MD [facility] Collection Date/Time: [facility] Results Received Date/Time: [facility] Reported Date/Time: Performed By: #### % IN7, % #### [facility] [address] [place] [address] Q - DEJUAN MULTIPLEX W/ REFLEX TO 11 ANTIBODY CASCADEon 05-01-2021 ANACHOICE(R) SCREEN Positive Abnormal NEGATIVE [facility] Specialist Comment on above: Order Comment: [facility] performed at: [employer] [facility], [address] , [address] [place] [address], [address] [place] [address], Steaming Machine Operator: Pedro Asencio MD [facility] Collection Date/Time: [facility] Results Received Date/Time: [facility] Reported Date/Time: Result Comment: A po sitive DEJUAN, Multiplex reflexes to the 3 Tiered Multiplex 11 Antibody Howard. Testing in the Howard stops at the first positive result and does not preclude additional positive results. Further laboratory testing may be considered if clinically indicated. For additional information, please refer to http://education.[employer]gar.com.[employer]/faq/IXC381 (This link is being provided for informational/ educational purposes only.) Performed By: #### % IN7, % #### [facility] [address] [place] [address] Q - VACUUM EVAPORATION OPERATOR INTERPon 05-01-2021 INTERPRETATION SEE NOTE Normal [facility] Paper Cutting Machine Operator Comment on above: Order Comment: [facility] performed at: [employer] [facility], [address] [facility], [address] [place], [address], Steaming Machine Operator: Pedro Asencio MD [facility] Collection Date/Time: [id number] [facility] Results Received Date/Time: [facility] Reported Date/Time: Result Comment: VACUUM EVAPORATION OPERATOR antibody is found in patients with mixed [...] IN7, % #### [facility] [address] [place] [address] Vital Signs Date Time Vital Sign Value Performing Clinician Facility 02-08-2022 13:05-0400 Body height 158.75 cm Staci Luamond Other [facility] Other 02-08-2022 13:05-0400 Body mass index (BMI) [Ratio] 33.29 kg/m2 Staci Luamond Other [facility] Other 02-08-2022 13:05-0400 Body temperature 101 [degF] Staci Luamond Other [facility] Other 02-08-2022 13:05-0400 Body weight 83.92 kg Staci Luamond Other [facility] Other 02-08-2022 13:05-0400 Respiratory rate 18 /min Staci Esquivel Other [facility] Other 02-08-2022 13:05-0400 SaO2% (BldA) [Mass fraction] 95 % Staci Esquivel Other [facility] Other Encounters Encounter Date Encounter Type Care Provider Facility Start: 09-30-2023 End: 09-30-2023 ambulatory CHET MCLAUGHLIN Not Available Start: 09-17-2023 End: 09-17-2023 ambulatory SKYE B APLING Not Available Start: 09-17-2023 End: 09-17-2023 ambulatory [facility] Start: 08-20-2023 End: 08-20-2023 ambulatory SKYE B [...] 02-08-2022 End: 02-08-2022 ambulatory Staci Esquivel Other [facility] Other Start: 02-08-2022 Office outpatient ne w 20 minutes Staci Esquivel [facility] Start: 01-31-2022 End: 02-01-[address] DARYL BELTRAN . Facility:[facility] Start: 12-07-2021 End: 12-08-[address] GERA GALEANO Facility:[facility] Start: 10-16-2021 End: 10-17-2021 ambulatory PHYSICIAN UNKNOWN Facility:[facility] Start: 09-07-2021 End: 09-08-[address] GERA GALEANO Facility:[facility] Start: 09-05-2021 End: 09-06-[address] GERA GALEANO Facility:[facility] Payers Date Payer Category Payer Private Health Insurance [id number] 1950 Unknown [id number] 2.16.8 [id number] 1950 Unknown [id number] 2.16.84 0.1.198374.3.579.2.593 1950 Unknown [id number] 2.16.84 0.1.646465.3.579.2.593 1950 Unknown [id number] 2.16.84 0.1.073193.3.579.2.593 1950 Unknown [id number] 2.16.84 0.1.469387.3.579.2.593 1950 Unknown [id number] 2.16.84 0.1.209140.3.579.2.593 1950 Unknown [id number] 2.16.84 0.1.008939.3.579.2.593 1950 Unknown [id number] 2.16.84 0.1.861454.3.579.2.593 1950 Unknown [id number] 2.16.84 0.1.245110.3.579.2.1259 1950 Unknown [id number] 2.16.84 0.1.482745.3.579.2.1259 1950 Unknown [id number] 2.16.84 0.1.560167.3.579.2.1259 1950 Unknown [id number] 2.16.84 0.1.005770.3.579.2.1258 1950 Unknown [id number] 2.16.84 0.1.633165.3.579.2.1258 1950 Unknown [id number] 2.16.84 0.1.686913.3.579.2.1258 1950 Unknown [id number] 2.16.84 0.1.145048.3.579.2.1258 1950 Unknown [id number] 2.16.84 0.1.460154.3.579.2.1258 1950 Unknown [id number] 2.16.84 0.1.683541.3.579.2.1258 1950 Unknown [id number] 2.16.840 .1.880982.3.579.2.1258 1950 Unknown [id number] 2.16.840 .1.666352.3.579.2.1259 Social History Date Type Detail Facility Sex Assigned At [facility] Other Progress note 09-17-2023 Note Date & Type Note Facility 09-17-2023 Note [place] [facility] - [facility] Subjective Teodora Daily is a [...] No swelling. Cervical (more content not included)... [facility] Evaluation note 02-08-2022 Note Date & [...] no improvement in 2 to 3 days [facility] Other Consultation note 01-31-2022 Note Date & [...] p.r.n. basis at the patient's discretion. [facility] History general Narrative - Reported Note Date & Type Note Facility History general Narrative - Reported Type Medical History osteoporosis Medical History herniated disc Medical History hypertrophic cardiomyopathy Surgical History Hip Replacement 2018 [facility] Other Summary Purpose Family History No Family History Records FoundNo Family History Records FoundNo Family History Records FoundNo Family History Records FoundNo Family History Records Found Advance Directives No Advanced Directives Records FoundNo Advanced Directives Records FoundNo Advanced Directives Records FoundNo Advanced Directives Records FoundNo Advanced Directives Records Found Additional Source Comments INFORMATION SOURCE (unrecogn ized section and content) DATE CREATED AUTHOR 05/13/2021 [facility] dical Specialist DATE CREATED AUTHOR AUTHOR'S ORGANIZ ATION 10/23/2021 [facility] DATE CREATED AUTHOR AUTHOR'S ORGANIZ ATION 08/03/2022 [facility] pital DATE CREATED AUTHOR AUTHOR'S ORGANIZ ATION 10/05/2023 [facility] dical Specialists EPIC DATE CREATED AUTHOR AUTHOR'S ORGANIZ ATION 11/10/2023 [facility] REASON FOR VISIT (unrecogniz ed section and [...] BE BASED ON THE PRIMARY CLINICAL RECORDS. [employer] provides no warranty or guarantee of the accuracy or completeness of information in this document.
--- NOTE | 2023-11-20 15:48 | P.CN_ITS ---
Consult Note: HPI Data of Consult Patient: known to practice within the last 3 years Requesting Physician: Mariaelena Romano NP Primary Care Provider: GERA GALEANO Consult Narrative Reason for consult: f/u Narrative: Teodora Daily a pleasant 73 year old female presents for evaluation and management of chronic pain. Pain today in low back 2-4/10, increasing to 8/10 with stairs, walking, standing, driving. Pain improved with sitting. Patient has failed to benefit from tylenol and motrin and HEP greater than 6 weeks. Patient recently underwent bilateral L4/5 L5/S1 MBB with >80% improvement in pain and functional ability but would like to target higher levels. cc:: CC: Mariaelena Romano NP Review of Systems ROS Status of ROS 10 or more systems reviewed and unremark able except as noted in history and below Musculoskeletal Reports: back pain PFSH PFSH Medical History Osteoarthritis ?M19.90 - Unspecified osteoarthritis, unspecified site (ICD-10) Carpal tunnel syndrome ?G56.00 - Carpal tunnel syndrome, unspecified upper limb (ICD-10) Heart murmur ?R01.1 - Cardiac murmur, unspecified (ICD-10) Hypertrophic cardiomyopathy ?I42.2 - Other hypertrophic cardiomyopathy (ICD-10) HTN (hypertension) ?I10 - Essential (primary) hypertension (ICD-10) Surgical History Hx of tonsillectomy ?Z90.89 - Acquired absence of other organs (ICD-10) History of bladder suspension procedure ?Z98.890 - Other specified postprocedural states (ICD-10) ?Z87.448 - Personal history of other diseases of urinary system (ICD-10) History of foot surgery ?Z98.890 - Other specified postprocedural states (ICD-10) History of hip replacement ?Z96.649 - Presence of unspecified artificial hip joint (ICD-10) History of colon resection ?Z90.49 - Acquired absence of other specified parts of digestive tract (ICD- 10) History of hysterectomy ?Z90.710 - Acquired absence of both cervix and uterus (ICD-10) Meds Home Medications and Allergies Home Medications ?Medication ?Instructions ?Recorded ?Confirmed ?Type aspirin 81 mg capsule 81 mg PO DAILY 08/21/23 11/18/23 History cyclosporine 0.05 % eye drops 1 drp ophthalmic (eye) Q12H 08/21/23 11/18/23 History (Restasis MultiDose) fluticasone propionate 50 1 spray intranasal DAILY PRN 08/21/23 11/18/23 History mcg/actuation nasal allergy symptoms spray,suspension (24 Hour Allergy Relief) irbesartan 75 mg tablet 75 mg PO DAILY 08/21/23 11/18/23 History metoprolol succinate 25 mg 25 mg PO DAILY 08/21/23 11/18/23 History tablet,extended release 24 hr (Toprol XL) paroxetine HCl 20 mg tablet 20 mg PO DAILY 08/21/23 11/18/23 History cyclobenzaprine 10 mg tablet 10 mg PO BID PRN muscle spasm 09/19/23 11/18/23 History Allergies Allergy/AdvReac Type Severity Reaction Status Date / Time oxycodone Allergy Hives Verified 11/18/23 08:18 Sulfa (Sulfonamide Allergy Rash Verified 11/18/23 08:18 Antibiotics) Exam Constitutional Documenting provider has reviewed patient's vital signs: yes Common normals: no apparent distress, oriented x3, healthy appearing, alert and well nourished General appearance: cooperative HENMD Common normals: normocephalic, hearing grossly normal bilaterally and moist oral mucous membranes Head and scalp: normocephalic Eye Common normals: PERRL Pupil: PERRL Neck & C-Spine Common normals: full ROM General: normal visual inspection Chest Common normals: inspection of chest normal Respiratory Common normals: normal respiratory effort, no retractions and no use of accessory muscles Back & Pelvis Lumbar spine/lower back: ROM limited, pain with ROM and straight leg raise negative bilaterally Sacroiliac joints: SI joints normal Other: positive facet loading strength 5/5 in BLE no radiculopathy Extremity Common normals: normal to inspection and full ROM Neuro Common normals: oriented x3, CN's II-XII intact bilaterally, moves all extremities, no focal motor deficits, no sensory deficits noted, deep tendon reflexes 2+ bilaterally and gait normal Sensorium/orientation: alert Motor exam: strength 5/5 throughout and no movement abnormalities noted Psych Common normals: mental status grossly normal, thought process normal, cooperative, affect normal, speech normal and activity/motor behavior normal Speech: normal speech Thought process: normal thought process Results Additional Findings Additional findings: If on a controlled substance or opioids, I have checked an [place] report on this patient and there are no aberrancies noted in the prescribing history.??If on a controlled substance or opioid a drug screen was completed and reviewed within the last year, and if there has not been a drug screen completed we ordered one today to monitor higher risk, state monitored pain medication use. As part of providing excellent, safe, comprehensive care, the following was completed at our patient's visit: 1. A medication reconciliation and review to ensure accurate knowledge of current/active medications, including asking our patients to inform us about any [id number] medications or herbal remedies/nutritional supplements/alternative remedies. 2. A review to specifically ensure our patients have had annual screening for screening for depression, screening for tobacco use, and screening for unhealthy alcohol use. For concerning screenings had a discussion with the patient, provided patient education, and recommended follow-up with primary care provider when appropriate. If patient noted with a risk of falling, they received education on strength, gait, and balance training to prevent future risk of falling. Assessment and Plan Assessment and Plan (1) Lumbar spondylosis: Assessment and Plan: We discussed the risks and benefits of the procedure with the patient, and we are NOT planning on using sedation as outlined in the guidelines from Medicare unless there is a documented reason that sedation would be strongly recommended.?? ?The procedure will be completed with fluoroscopic guidance.? Plan change to bilateral L3-4 L4-5 facet medial branch block x2 working towards lumbar RFA continue HEP as tolerated continue current medications f/u after each injection
== END 2023-11-20 14:36 | disposition home or self-care (01) ==
LOC: PM 14:35
PROVIDERS: PCP Internal Medicine; Visit Provider Nurse Practitioner
DX: M47.816 Spondylosis without myelopathy or radiculopathy, lumbar region (principal)
CPT/HCPCS: G0463

== ENCOUNTER 2024-01-06 07:58 | Day surgery (SDC) | payer MEDICARE, SELFPAY ==
[2024-01-06 08:09] VITALS: BP 118/78; PULSE 80; TEMP 36.7; O2SAT 95
--- OUTSIDE RECORDS SUMMARY | 2024-01-06 08:20 | XMS_ITS | CCD ---
Author Organization [facility] CliniSyor Care Team Providers Care Software Sales Consultant Name Role Phone UNKNOWN, PHYSICIAN Referring Unavailable UNKNOWN, PHYSICIAN Primary Care Unavailable RADHA, CHRIS Ramos Admitting Unavailable MODINOEL CHRIS Richard Attending Unavailable Staci Esquivel Unavailable [...] Consulting Unavailable GALEANO, DR BOSS Attending Unavailable FROYLAN, DR BOSS Admitting Unavailable GALEANO, DR BOSS Primary Care Unavailable GALEANO, DR BOSS Consulting Unavailable NEFCYKAILEE Consulting Unavailable GALEANO, DR BOSS Attending Unavailable GALEANO, DR BOSS Admitting Unavailable GALEANO, DR BOSS Primary Care Unavailable GALEANO, DR BOSS Consulting Unavailable GALEANO, DR BOSS Admitting Unavailable MISC, DR BEEBE Consulting Unavailable GALEANO, DR BOSS Primary Care Unavailable GALEANO, DR BOSS Attending Unavailable WILFRIDOUKACHRIS DING Attending Unavailable LINDSEY RAYMUNDO Attending Unavailable GERA GALEANO Referring Unavailable APLINGSKYE Attending Unavailable APLINGSKYE Referring Unavailable EMIGDIO COURTNEY Attending Unavailable CELSA MANZANARES Attending Unavailable APLINGSKYE Attending Unavailable APLINGSKYE Referring Unavailable LINDSEY RAYMUNDO Attending Unavailable APLING, SKYE B Attending Unavailable CHET MCLAUGHLIN Attending Unavailable CHET MCLAUGHLIN Referring Unavailable LINDSEY RAYMUNDO Attending Unavailable TEODORA GUAJARDO Attending Unavailable Allergies Allergy Classification Reported Allergen(s) Allergy Type Date of Onset Reaction(s) Facility (1 source) [facility] [employer] Other (1 source) Sulfacetamide Drug Allergy neck swelled, Sessions [facility] [employer] Other (2 sources) oxyCODONE Drug Allergy [facility] Repository (2 sources) Sulfonamides (Antibiotic) Drug allergy (disorder) [facility] Repository (1 source) Sulfonamides (Antibiotic); Translations: [SULFA (SULFONAMIDE ANTIBIOTICS)] Propensity to adverse reactions to drug (disorder) 12-26-19 [facility] Repository Medications Current Medications Medication Drug [...] Active fexofenadine (1 source) Histamine-1 Receptor Antagonist Caorlin Active fluticasone (1 source) Corticosteroid Flonase Active [...] Episodic Other aftercare (1 source) 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 Spoke with patient and made her aware. She agreed to treadmill stress test. Order faxed to [facility]. Normal [facility] Office Visiton 09-17-2023 Follow-up visit [id number] Teodora Daily 1950 F Date Provider Department Center 09/17/2023 [facility] GARCIA [facility] Family History Problem Relation Age of Onset Other Mother Hypertrophic cardiomyopathy Sister Stroke Sister Other Sister Hypertrophic cardiomyopathy Brother Family Status - Relation Status Age at Mother Sister Brother Level of Service:63568 UT OFFICE/OUTPATIENT ESTABLISHED MOD MDM 30 MIN [facility] FREE T3on 07-24-2022 FREE T3 2.66 pg/mlL Normal 2.18-3.98 [facility] Comment on above: Performed By: #### T , FT3 #### [facility] [address] [place], [place] [address] Dr. Adolph Clinton FREE T4on 07-24-2022 Free T4 [Mass/Vol] 0.85 ng/dL Normal 0.76-1.46 [facility] Comment on above: Performed By: #### F T4 #### [facility] [address] [place], [place] [address] Dr. Adolph Clinton TSHon 07-24-2022 TSH 2.124 uIU/mL Normal 0.358-3.740 [facility] Comment on above: Performed By: #### T SH, FT3 #### [facility] [address] [place], [place] [address] Dr. Adolph Clinton XR FINGER MIN 2 [...] by: JESUS FELIZ Date: 2022-04-05 19:19 Normal [facility] COVID Quick Testingon 2021 Result Negative [facility] Other Quick Fluon 02-08-2022 FLUAV Ab CF (S) [Titer] Negative [facility] Other FLUBV Ab CF (S) [Titer] Negative [facility] Other MG MAMM SCREEN 3D SHARAD CADon 12-07-2021 MG MAMM SCREEN 3D SHARAD CAD Patient: JORGETEODORAAamir Exam Date: 12/07/2021 : 1950 Gender:F Ordering : DR GERA GALEANO M.D. Admission #: [id number] Family : DR. TEODORA GUAJARDO D.O. Order #: [id number] CLICK HERE TO VIEW EXAM RADIOLOGY REPORT [...] uterine cancer at age 58. LOCATION: [facility] BREAST COMPOSITION: Scattered areas fibroglandular density. [...] Salguero M.D. on 12/07/2021 at 12:13 Normal [facility] XR DEXA BONE DENSITYon 12-07 XR [...] by: BRYAN SALGUERO Date: 2021-12-07 15:10 Normal [facility] MRI CARDIAC W WO CONTRASTon 10-16-2021 MRI CARDIAC W WO CONTRAST [facility] Department of Radiology [address] [place] [id number] ===== Patient Name: TEODORA DAILY : 1950 Sex: F Age: Race: White Pt. Location: 30 Patient Status: D Ordered Date: 09/25/2021 8:10:00 AM Completed Date: 10/16/2021 12:33 PM Requesting Provider: CHRIS GARCIA V Attending Provider: Report Copy To: Signs & Symptoms: I51.7 Cardiomegaly I10 History: Joel Escobar hip replacement Comments: Exam: MRI CARDIAC W [...] 2. Electronically signed: Kane Solomon. Transcribed by: [email or web address], User Resident: Electronically Signed by: KANE SOLOMON @ 10/18/2021 02:11 PM Normal [facility] CREATININEon 09-07-2021 Creatinine [Mass/Vol] 0.77 mg/dL Normal 0.55-1.02 [facility] Comment on above: Performed By: #### C IDALIA #### [facility] [address] [place] [address] Dr. Adolph Clinton EGFR-AF [place] Z[place]ALANDER >60 Normal >=60 [facility] Comment on above: Performed By: #### C IDALIA #### [facility] [address] [place] [address] Dr. Adolph Clinton EGFR-NON AF [place]ALANDER >60 Normal >=60 [facility] Comment on above: Performed By: #### C IDALIA #### [facility] [address] [place] [address] HEAD WO W CONon 2 CT HEAD WO W CON EXAMINATION: CT HEAD WO W CON HISTORY: Transient cerebral ischemia COMPARISON: None. TECHNIQUE: Multiple computed tomograms of the head were obtained with and without intravenous contrast enhancement. 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 The vasculature about the [place] of [place] appears grossly intact. IMPRESSION: There [...] by: KAILEE GARCIA Date: 2021-09-07 13:44 Normal [facility] ECHOCARDIO M/2D COMPLETEon 0 09-05-2021 ECHOCARDIO M/2D COMPLETE Patient: TEODORA DAILY Exam Date: 09/05/2021 : 1950 Gender:F Ordering : DR GERA GALEANO M.D. Admission #: [id number] Family : Order #: [id number] CLICK HERE TO VIEW EXAM ECHOCARDIOGRAM REPORT [...] Area(A4C): 12.70 cm2 Left Atrium Systolic Volume(A2C): 08554 mm3 Left Atrium Systolic Volume(A4C): 02247 mm3 Mitral Valve MV E to A [...] Garcia M.D. on 09/05/2021 at 20:08 Normal [facility] Q - DEJUAN SCREEN IFA W/RFL TIT ER IFAon 05-10-2021 DEJUAN SCREEN, IFA Negative Normal NEGATIVE [facility] Electric Switch Repairer Comment on above: Order Comment: [facility] performed at: [employer] [employer] [facility], [address] , [address] [place] [address], [phone], Business Banking Manager: Pedro Asencio MD [facility] Date/Time: [facility] [...] AC-0: Negative International Consensus on DEJUAN Patterns (https://doi.org/10.1515/trew-7295-0982) For additional information, please refer to http://education.[employer].Status4/faq/CVK463 (This link is being provided for informational/ educational purposes only.) Performed By: #### 7 832X, 249X #### [facility] Default [address] [place] [address] Q - SJOGREN'S ABS (SS-A,SS-B )on 05-10-2021 SJOGREN'S ANTIBODY (SS-A) <1.0 NEG Normal <1.0 NEG [facility] Electric Switch Repairer Comment on above: Order Comment: [facility] performed at: [employer] [employer] [facility], [address] , [address] [place], [phone], Business Banking Manager: Pedro Asencio MD [facility] Date/Time: [facility] Results Received Date/Time: [facility] Reported Date/Time: Performed By: #### 7 832X, 249X #### [facility] [address] [place] [address] SJOGREN'S ANTIBODY (SS-B) <1.0 NEG Normal <1.0 NEG [facility] Specialist Comment on above: Order Comment: [facility] performed at: [employer] [facility], [address] [place] [address], [address] [place] [address], [address] [place] [address], Business Banking Manager: Pedro Asencio MD [facility] Date/Time: [facility] Results Received Date/Time: [facility] Reported Date/Time: Performed By: #### 7 832X, 249X #### [facility] [address] [place] [address] Q - DEJUAN CASC [id number] CHROMATIN (NUCLEOSOMAL) ANTIBODY <1.0 NEG Normal <1.0 NEG [facility] Specialist Comment on above: Order Comment: [facility] performed at: [employer] [employer] [facility], [address] [place] [address], [address] [place] [address], [address] [place] [address], Business Banking Manager: Pedro Asencio MD [facility] Date/Time: [id number] [facility] Results Received Date/Time: [facility] Reported Date/Time: [...] 12% Sjogren's syndrome and 8% polymyositis. Ribonucleoprotein ([facility]) antibodies are to [facility] A and/or [facility] 68kD proteins; antibodies to one or both are present in >80% MCTD, 22% to 48% SLE, 14% systemic sclerosis, 12% Sjogren's and 8% polymyositis. Sm/[facility] antibodies are directed to epitopes formed in a complex of Sm and [facility]; antibodies to the Sm/[facility] complex are present in 54% to 94% MCTD, 30% SLE, 4% systemic sclerosis, and 9% Sjogren's and polymyositis. Sm antibody is present in 20% to 30% SLE, 8% MCTD, 10% polymyositis, 0% systemic sclerosis and 4% Sjogren's syndrome. Double stranded DNA, Chromatin, Ribonucleoprotein, Sm/[facility] complex and Sm antibodies are present in <2% of normal blood donors. The Baker does not rule out autoimmune disease characterized by other autoantibody specificities such as rheumatoid arthritis, autoimmune hepatitis, primary biliary cholangitis, autoimmune thyroiditis, Kendall's disease, pernicious anemia, autoimmune neuropathies, vasculitis, celiac disease and bullous disease. Please contact your local [employer] laboratory if you are interested in additional testing. Performed By: #### % IN7, % #### [facility] [address] [place] [address] DNA (DS) ANTIBODY <1 Normal [facility] Electric Switch Repairer Comment on above: Order Comment: [facility] Testing performed at: [employer] [facility], [address] [place] [address], [address] [place] [address], [phone], Business Banking Manager: Pedro Asencio MD [facility] Date/Time: [id number] [facility] Results Received Date/Time: [facility] Reported Date/Time: Result Comment: IU/m L Interpretation < or = 4 Negative 5-9 Indeterminate > or = 10 Positive Performed By: #### % IN7, % #### [facility] [address] [place] [address] [facility] ANTIBODY 1.0 POS Abnormal <1.0 NEG [facility] Electric Switch Repairer Comment on above: Order Comment: [facility] performed at: [employer] [facility], [address] [facility], [address] [place] [address], [phone], Business Banking Manager: Pedro Asencio MD [facility] Date/Time: [facility] Results Received Date/Time: [facility] Reported Date/Time: Performed By: #### % IN7, % #### [facility] [address] [place] [address] SM ANTIBODY <1.0 NEG Normal <1.0 NEG [facility] Electric Switch Repairer Comment on above: Order Comment: [facility] performed at: [employer] [facility], [address] [place] [address], [address] [place] [address], [address] [place] [address], Business Banking Manager: Pedro Asencio MD [facility] Date/Time: [facility] Results Received Date/Time: [facility] Reported Date/Time: Performed By: #### % IN7, % #### [facility] [address] [place] [address] SM/[facility] ANTIBODY <1.0 NEG Normal <1.0 NEG [facility] Electric Switch Repairer Comment on above: Order Comment: [facility] performed at: [facility] [facility], [address] [place] [address], [address] [place] [address], [address] [place] [address], Business Banking Manager: Pedro Asencio MD [facility] Date/Time: [facility] Results Received Date/Time: [facility] Reported Date/Time: Performed By: #### % IN7, % #### [facility] [address] [place] [address] Q - DEJUAN MULTIPLEX W/ REFLEX TO 11 ANTIBODY CASCADEon 05-01-2021 ANACHOICE(R) SCREEN Positive Abnormal NEGATIVE [facility] Specialist Comment on above: Order Comment: [facility] performed at: [facility], [address] [place] [address], [address] [place] [address], [address] [place] [address], Business Banking Manager: Pedro Asencio MD [facility] Date/Time: [facility] Results Received Date/Time: [facility] Reported Date/Time: Result Comment: A po sitive DEJUAN, Multiplex reflexes to the 3 Tiered Multiplex 11 Antibody Baker. Testing in the Baker stops at the first positive result and does not preclude additional positive results. Further laboratory testing may be considered if clinically indicated. For additional information, please refer to http://education.[employer]/faq/OMQ472 (This link is being provided for informational/ educational purposes only.) Performed By: #### % IN7, % #### [facility] [address] [place] [address] Q - [facility] INTERPon 05-01-2021 INTERPRETATION SEE NOTE Normal [facility] Electric Switch Repairer Comment on above: Order Comment: [facility] performed at: [email or web address], [employer] [facility], [address] [place] [address], [address] [place] [address], [phone], Business Banking Manager: Pedro Asencio MD [facility] Date/Time: [facility] Results Received Date/Time: [facility] Reported Date/Time: Result Comment: [facility] antibody is found in patients with mixed [...] IN7, % #### [facility] [address] [place] [address] Vital Signs Date Time Vital Sign Value Performing Clinician Facility 02-08-2022 13:05-0400 Body height 158.75 cm Staci Sierra Other [facility] Other 02-08-2022 13:05-0400 Body mass index (BMI) [Ratio] 33.29 kg/m2 Staci Esquivel Other [facility] Other 02-08-2022 13:05-0400 Body temperature 101 [degF] Staci Esquivel Other [facility] Other 02-08-2022 13:05-0400 Body weight 83.92 kg Staci Esquivel Other [facility] Other 02-08-2022 13:05-0400 Respiratory rate 18 /min Staci Esquivel Other [facility] Other 02-08-2022 13:05-0400 SaO2% (BldA) [Mass fraction] 95 % Staci Esquivel Other [facility] Other Encounters Encounter Date Encounter Type Care Provider Facility Start: 12-23-2023 End: 12-23-2023 ambulatory TEODORA GUAJARDO Not Available Start: 11-24-2023 End: 11-24-2023 ambulatory LINDSEY H TIMMIS Not Available Start: 09-30-2023 End: 09-30-2023 ambulatory CHET MCLAUGHLIN Not Available Start: 09-17-2023 End: 09-17-2023 ambulatory SKYE B APLING Not Available Start: 09-17-2023 End: 09-17-2023 ambulatory [facility] Start: 08-20-2023 End: 08-20-2023 ambulatory SKYE B APLING Not Available Start: 07-14-2023 End: 07-14-2023 ambulatory EMIGDIO Beatriz COURTNEY Not Available Start: 06-09-2023 End: 06-09-2023 [...] End: 04-05-2022 ambulatory ASHTYN Rutledge Facility:[facility] Start: 02-08-2022 End: 02-08-2022 ambulatory Staci Esquivel Other [facility] Other Start: 02-08-2022 Office outpatient ne w 20 minutes Staci Esquivel [facility] Start: 01-31-2022 End: 02-01-[address] DARYL BELTRAN . Facility:[facility] Start: 12-07-2021 End: 12-08-[address] GERA GALEANO Facility:[facility] Start: 10-16-2021 End: 10-17-2021 ambulatory PHYSICIAN UNKNOWN Facility:[facility] Start: 09-07-2021 End: 09-08-[address] GERA GALEANO Facility:[facility] Start: 09-05-2021 End: 09-06-[address] GERA GALEANO Facility:[facility] Payers Date Payer Category Payer Private Health Insurance [id number] 1950 Unknown [id number] 2.16.8 [id number] 1950 Unknown [id number] 2.16.84 0.1.062918.3.579.2.593 1950 Unknown [id number] 2.16.84 0.1.803625.3.579.2.593 1950 Unknown [id number] 2.16.84 0.1.128777.3.579.2.593 1950 Unknown [id number] 2.16.84 0.1.089480.3.579.2.593 1950 Unknown [id number] 2.16.84 0.1.492993.3.579.2.593 1950 Unknown [id number] 2.16.84 0.1.242201.3.579.2.593 1950 Unknown [id number] 2.16.84 0.1.560078.3.579.2.593 1950 Unknown [id number] 2.16.84 0.1.795745.3.579.2.1258 1950 Unknown [id number] 2.16.84 0.1.933738.3.579.2.1258 1950 Unknown [id number] 2.16.84 0.1.716939.3.579.2.1258 1950 Unknown [id number] 2.16.84 0.1.616086.3.579.2.1258 1950 Unknown [id number] 2.16.84 0.1.373808.3.579.2.1258 1950 Unknown [id number] 2.16.84 0.1.976217.3.579.2.1258 1950 Unknown [id number] 2.16.84 0.1.945809.3.579.2.1258 1950 Unknown [id number] 2.16.84 0.1.258356.3.579.2.1258 1950 Unknown [id number] 2.16.84 0.1.016606.3.579.2.1258 1950 Unknown [id number] 2.16.84 0.1.450604.3.579.2.1258 1950 Unknown [id number] 2.16.84 0.1.133011.3.579.2.1258 1950 Unknown [id number] 2.16.840 .1.776616.3.579.2.1258 1950 Unknown [id number] 2.16.840 .1.418667.3.579.2.1259 Social History Date Type Detail Facility Sex Assigned At [facility] Other Progress note 09-17-2023 Note Date & Type Note Facility 09-17-2023 Note [place] [facility] Subjective Teodora Daily is a [...] not included)... [facility] Evaluation note 02-08-2022 Note Date & [...] no improvement in 2 to 3 days [facility] Other Consultation note 01-31-2022 Note Date & [...] p.r.n. basis at the patient's discretion. [facility] History general Narrative - Reported Note Date & Type Note Facility History general Narrative - Reported Type Medical History osteoporosis Medical History herniated disc Medical History hypertrophic cardiomyopathy Surgical History Hip Replacement 2017 [facility] Other Summary Purpose Family History No Family History Records FoundNo Family History Records FoundNo Family History Records FoundNo Family History Records FoundNo Family History Records Found Advance Directives No Advanced Directives Records FoundNo Advanced Directives Records FoundNo Advanced Directives Records FoundNo Advanced Directives Records FoundNo Advanced Directives Records Found Additional Source Comments INFORMATION SOURCE (unrecogn ized section and content) DATE CREATED AUTHOR 05/13/2021 [facility] dical Specialist DATE CREATED AUTHOR AUTHOR'S ORGANIZ ATION 10/23/2021 [facility] DATE CREATED AUTHOR AUTHOR'S ORGANIZ ATION 08/03/2022 [facility] DATE CREATED AUTHOR AUTHOR'S ORGANIZ ATION 11/10/2023 [facility] DATE CREATED AUTHOR AUTHOR'S ORGANIZ ATION 12/24/2023 [facility] dical Specialists EPIC REASON FOR VISIT (unrecogniz [...] BE BASED ON THE PRIMARY CLINICAL RECORDS. [employer] provides no warranty or guarantee of the accuracy or completeness of information in this document.
[2024-01-06 08:35] VITALS: BP 154/96; PULSE 78; O2SAT 92
[2024-01-06 08:36] VITALS: BP 152/95; PULSE 77; O2SAT 92
[2024-01-06] MEDS: BUPIVACAINE HCL 0.25% PF 25 MG/10 ML VIAL 6 ML INJ (08:42)
--- NOTE | 2024-01-06 09:02 | W.PM.PROCNOT ---
Date of procedure: 01/06/24 Pre-op diagnosis: Lumbar spondylosis Post-op diagnosis: same as pre-op Procedure: Bilateral Lumbar 3/4, 4/5 medial branch block Preop diagnosis includes pain secondary to spondylosis, Postop diagnosis same Under fluoroscopic guidance Solution injected: 2milliliters Marcaine 0.25% Anesthesia :none Immediate complications none Time out process compliant After informed consent obtained from the patient placed in the Prone proposition . area was prepped and draped in a sterile fashion using betadine .25 gauge spinal needle inserted over each of the above mentioned target areas . Mcgrath were directed towards the target under fluoroscopic guidance . after encountering each of the targets , no indication of intravascular intraneuronal or intrathecal needle tip placement. Then 0 .5 to 1 Milliliter was injected at each level. Mcgrath removed postoperatively. patient transferred to recovery in stable condition to be discharged home after meeting criteria Anesthesia: Local Surgeon: Marion Abraham Condition: stable
== END 2024-01-06 08:46 | disposition home or self-care (01) ==
LOC: SURGOUT 07:59
PROVIDERS: PCP Internal Medicine; Visit Provider Anesthesiology Pain Medicine
DX: M47.816 Spondylosis without myelopathy or radiculopathy, lumbar region (principal)
CPT/HCPCS: 64493; 64494; J0665

== ENCOUNTER 2024-01-08 13:11 | Outpatient (OUT) | payer MEDICARE, SELFPAY ==
--- OUTSIDE RECORDS SUMMARY | 2024-01-08 13:29 | XMS_ITS | CCD ---
Author Organization [facility] Care Team Providers Care Professional Development Director Name Role Phone UNKNOWN, PHYSICIAN Referring Unavailable [...] Reaction(s) Facility (1 source) [facility]ODONE Drug [facility] [employer] Other (1 source) Sulfacetamide Drug Allergy neck swelled, A[facility] [employer] Other (2 sources) oxyCODONE Drug Allergy [facility] Repository (2 sources) Sulfonamides (Antibiotic) Drug allergy (disorder) [facility] Repository (1 source) Sulfonamides (Antibiotic); Translations: [SULFA (SULFONAMIDE ANTIBIOTICS)] Propensity to adverse reactions to drug (disorder) 12-26-19 [facility] Repository Medications Current Medications Medication Drug Class(es) [...] 04-05-2022 Episodic Other aftercare (1 source) Other terminal gauger (current) drug therapy; Translations: [OTH ASSISTED CURRENT DRUG THERAPY] Onset: 04-09-2022 Episodic Other [...] to treadmill stress test. Order faxed to [facility]. Normal [facility] Office Visiton 09-17-2023 Follow-up visit [id number] Teodora Daily 1950 F Date Provider Department Center 09/17/2023 [facility] GARCIA [facility] Family History Problem Relation Age of Onset Other Mother Hypertrophic cardiomyopathy Sister Stroke Sister Other Sister Hypertrophic cardiomyopathy Brother Family Status - Relation Status Age at Mother Sister Brother Level of Service:[address] [place] OFFICE/OUTPATIENT ESTABLISHED MOD MDM 30 MIN [facility] FREE T3on 07-24-2022 FREE T3 2.66 pg/mlL Normal 2.18-3.98 [facility] Comment on above: Performed By: #### T , FT3 #### [facility] [address], [place] [address] Dr. Adolph Clinton FREE T4on 07-24-2022 Free T4 [Mass/Vol] 0.85 ng/dL Normal 0.76-1.46 [facility] Comment on above: Performed By: #### F T4 #### [facility] [address], [place] [address] Dr. Adolph Clinton TSHon 07-24-2022 TSH 2.124 uIU/mL Normal 0.358-3.740 [facility] Comment on above: Performed By: #### T SH, FT3 #### [facility] [address] [place], [place] [address] Dr. Adolph Clinton XR FINGER MIN 2 [...] by: JESUS FELIZ Date: 2022-04-05 19:19 Normal [facility] COVID Quick Testingon 2021 Result Negative [employer] Other Quick Fluon 02-08-2022 FLUAV Ab CF (S) [Titer] Negative [employer] Other FLUBV Ab CF (S) [Titer] Negative [employer] Other MG MAMM SCREEN 3D SHARAD CADon 12-07-2021 MG MAMM SCREEN 3D SHARAD CAD Patient: JORGETEODORAAamir Exam Date: 12/07/2021 : 1950 Gender:F Ordering : DR GERA GALEANO M.D. Admission #: [id number] Family : DR. TEODORA GUAJARDO D.O. Order #: [id number] CLICK HERE TO VIEW EXAM RADIOLOGY REPORT [...] uterine cancer at age 58. LOCATION: [facility] BREAST COMPOSITION: Scattered areas fibroglandular density. FINDINGS: [...] Salguero M.D. on 12/07/2021 at 12:13 Normal [facility] XR DEXA BONE DENSITYon 12-07 XR [...] by: BRYAN SALGUERO Date: 2021-12-07 15:10 Normal [facility] MRI CARDIAC W WO CONTRASTon 10-16-2021 MRI CARDIAC W WO CONTRAST [facility] Department of Radiology [address] [place] [id number] ===== Patient Name: TEODORA DAILY : [...] 2. Electronically signed: Kane Solomon. Transcribed by: [email or web address], User Resident: Electronically Signed by: KANE SOLOMON @ 10/18/2021 02:11 PM Normal [facility] CREATININEon 09-07-2021 Creatinine [Mass/Vol] 0.77 mg/dL Normal 0.55-1.02 [facility] Comment on above: Performed By: #### C IDALIA #### [facility] [address] [place] [address] Dr. Adolph Clinton EGFR-AF SAMMARINESE >60 Normal >=60 [facility] Comment on above: Performed By: #### C IDALIA #### [facility] [address] [place] [address] Dr. Adolph Clinton EGFR-NON AF SAMMARINESE >60 Normal >=60 [facility] Comment on above: Performed By: #### C IDALIA #### [facility] [address] [place] [address] HEAD WO W CONon 2 CT HEAD WO W CON EXAMINATION: CT HEAD WO W CON HISTORY: Transient cerebral ischemia COMPARISON: None. TECHNIQUE: Multiple computed tomograms of the head were obtained with and without intravenous contrast enhancement. 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 The vasculature about the [place] appears grossly intact. IMPRESSION: There [...] by: KAILEE GARCIA Date: 2021-09-07 13:44 Normal [facility] ECHOCARDIO M/2D COMPLETEon 0 09-05-2021 ECHOCARDIO M/2D COMPLETE Patient: TEODORA DAILY Exam Date: 09/05/2021 : 1950 Gender:F Ordering : DR GERA GALEANO M.D. Admission #: [id number] Family : Order #: [id number] CLICK HERE TO VIEW EXAM ECHOCARDIOGRAM REPORT [...] Area(A4C): 12.70 cm2 Left Atrium Systolic Volume(A2C): 35734 mm3 Left Atrium Systolic Volume(A4C): 37939 mm3 Mitral Valve MV E to A [...] Garcia M.D. on 09/05/2021 at 20:08 Normal [facility] Q - DEJUAN SCREEN IFA W/RFL TIT ER IFAon 05-10-2021 DEJUAN SCREEN, IFA Negative Normal NEGATIVE [facility] Program Lead Comment on above: Order Comment: [facility] Testing performed at: [employer] [facility], [address] , [address] [place] [address], [phone], Flagger: Pedro Asencio MD [facility] Collection Date/Time: [facility] [...] AC-0: Negative International Consensus on DEJUAN Patterns (https://doi.org/10.1515/zaij-2376-6294) For additional information, please refer to http://education.Million-2-1.Doppelganger/faq/XXQ766 (This link is being provided for informational/ educational purposes only.) Performed By: #### 7 832X, 249X #### [facility] Default [address] [place] [address] Q - SJOGREN'S ABS (SS-A,SS-B )on 05-10-2021 SJOGREN'S ANTIBODY (SS-A) <1.0 NEG Normal <1.[address] [facility] Program Lead Comment on above: Order Comment: [facility] performed at: [employer] [facility], [address] , [address] [place], [phone], Flagger: Pedro Asencio MD [facility] Collection Date/Time: [facility] Results Received Date/Time: [facility] Reported Date/Time: Performed By: #### 7 832X, 249X #### [facility] Default [address] [place] [address] SJOGREN'S ANTIBODY (SS-B) <1.0 NEG Normal <1.0 NEG [facility] [place] [facility] Specialist Comment on above: Order Comment: [facility] performed at: [employer], [employer] [facility], [address] [place] [address], [address] [place] [address], [address] [place] [address], Flagger: Pedro Asencio MD [facility] Collection Date/Time: [facility] Results Received Date/Time: [facility] Reported Date/Time: Performed By: #### 7 832X, 249X #### [facility] [address] [place] [address] Q - DEJUAN CASC [id number] CHROMATIN (NUCLEOSOMAL) ANTIBODY <1.0 NEG Normal <1.0 NEG [facility] [place] [facility] Specialist Comment on above: Order Comment: [facility] performed at: [employer], [employer] [facility], [address] [place] [address], [address] [place] [address], [address] [place] [address], Flagger: Pedro Asencio MD [facility] Collection Date/Time: [id number] [facility] Results Received Date/Time: [facility] Reported Date/Time: [...] 12% Sjogren's syndrome and 8% polymyositis. Ribonucleoprotein (BUSINESS INFORMATION MANAGER) antibodies are to BUSINESS INFORMATION MANAGER A and/or BUSINESS INFORMATION MANAGER 68kD proteins; antibodies to one or both are present in >80% MCTD, 22% to 48% SLE, 14% systemic sclerosis, 12% Sjogren's and 8% polymyositis. Sm/BUSINESS INFORMATION MANAGER antibodies are directed to epitopes formed in a complex of Sm and BUSINESS INFORMATION MANAGER; antibodies to the Sm/BUSINESS INFORMATION MANAGER complex are present in 54% to 94% MCTD, 30% SLE, 4% systemic sclerosis, and 9% Sjogren's and polymyositis. Sm antibody is present in 20% to 30% SLE, 8% MCTD, 10% polymyositis, 0% systemic sclerosis and 4% Sjogren's syndrome. Double stranded DNA, Chromatin, Ribonucleoprotein, Sm/BUSINESS INFORMATION MANAGER complex and Sm antibodies are present in <2% of normal blood donors. The [place] does not rule out autoimmune disease characterized by other autoantibody specificities such as rheumatoid arthritis, autoimmune hepatitis, primary biliary cholangitis, autoimmune thyroiditis, Kendall's disease, pernicious anemia, autoimmune neuropathies, vasculitis, celiac disease and bullous disease. Please contact your local [employer] laboratory if you are interested in additional testing. Performed By: #### % IN7, % #### [facility] [address] [place] [address] DNA (DS) ANTIBODY <1 Normal [facility] Program Lead Comment on above: Order Comment: [facility] performed at: [employer] [facility], [address] [place] [address], [address] [place] [address], [phone], Flagger: Pedro Asencio MD [facility] Collection Date/Time: [id number] [facility] Results Received Date/Time: [facility] Reported Date/Time: Result Comment: IU/m L Interpretation < or = 4 Negative 5-9 Indeterminate > or = 10 Positive Performed By: #### % IN7, % #### [facility] [address] [place] [address] BUSINESS INFORMATION MANAGER ANTIBODY 1.0 POS Abnormal <1.0 NEG [facility] Program Lead Comment on above: Order Comment: [facility] performed at: [employer] [facility], [address] [facility], [address] [place] [address], [phone], Flagger: Pedro Asencio MD [facility] Collection Date/Time: [facility] Results Received Date/Time: [facility] Reported Date/Time: Performed By: #### % IN7, % #### [facility] [address] [place] [address] SM ANTIBODY <1.0 NEG Normal <1.[address] [facility] Program Lead Comment on above: Order Comment: [facility] performed at: [employer] [facility], [address] [place] [address], [address] [place] [address], [address] [place] [address], Flagger: Pedro Asencio MD [facility] Collection Date/Time: [facility] Results Received Date/Time: [facility] Reported Date/Time: Performed By: #### % IN7, % #### [facility] [address] [place] [address] SM/BUSINESS INFORMATION MANAGER ANTIBODY <1.0 NEG Normal <1.[address] [facility] Program Lead Comment on above: Order Comment: [facility] performed at: [employer] [facility], [address] [place] [address], [address] [place] [address], [address] [place] [address], Flagger: Pedro Asencio MD [facility] Collection Date/Time: [facility] Results Received Date/Time: [facility] Reported Date/Time: Performed By: #### % IN7, % #### [facility] [address] [place] [address] Q - DEJUAN MULTIPLEX W/ REFLEX TO 11 ANTIBODY CASCADEon 05-01-2021 ANACHOICE(R) SCREEN Positive Abnormal NEGATIVE [facility] [place] [facility] Specialist Comment on above: Order Comment: [facility] performed at: [employer] [facility], [address] [place] [address], [address] [place] [address], [address] [place] [address], Flagger: Pedro Asencio MD [facility] Collection Date/Time: [facility] Results Received Date/Time: [facility] Reported Date/Time: Result Comment: A po sitive DEJUAN, Multiplex reflexes to the 3 Tiered Multiplex 11 Antibody [place]. Testing in the [place] stops at the first positive result and does not preclude additional positive results. Further laboratory testing may be considered if clinically indicated. For additional information, please refer to http://education.Sleep.FM/faq/WMD433 (This link is being provided for informational/ educational purposes only.) Performed By: #### % IN7, % #### [facility] [address] [place] [address] Q - BUSINESS INFORMATION MANAGER INTERPon 05-01-2021 INTERPRETATION SEE NOTE Normal [facility] Program Lead Comment on above: Order Comment: [facility] performed at: [employer] [facility], [address] [place] [address], [address] [place] [address], [phone], Flagger: Pedro Asencio MD [facility] Collection Date/Time: [facility] Results Received Date/Time: [facility] Reported Date/Time: Result Comment: BUSINESS INFORMATION MANAGER antibody is found in patients with mixed [...] IN7, % #### [facility] [address] [place] [address] Vital Signs Date Time Vital Sign Value Performing Clinician Facility 02-08-2022 13:05-0400 Body height 158.75 cm Staci Sierra Other [employer] Other 02-08-2022 13:05-0400 Body mass index (BMI) [Ratio] 33.29 kg/m2 Staci Esquivel Other [employer] Other 02-08-2022 13:05-0400 Body temperature 101 [degF] Staci Esquivel Other [employer] Other 02-08-2022 13:05-0400 Body weight 83.92 kg Staci Esquivel Other [employer] Other 02-08-2022 13:05-0400 Respiratory rate 18 /min Staci Esquivel Other [employer] Other 02-08-2022 13:05-0400 SaO2% (BldA) [Mass fraction] 95 % Staci Esquivel Other [employer] Other Encounters Encounter Date Encounter Type Care Provider Facility Start: 12-23-2023 End: 12-23-2023 ambulatory TEODORA GUAJARDO Not Available Start: 11-24-2023 End: 11-24-2023 ambulatory LINDSEY H TIMMIS Not Available Start: 09-30-2023 End: 09-30-2023 ambulatory CHET MCLAUGHLIN Not Available Start: 09-17-2023 End: 09-17-2023 ambulatory SKYE B APLING Not Available Start: 09-17-2023 End: 09-17-2023 ambulatory [facility] Start: 08-20-2023 End: 08-20-2023 ambulatory SKYE [...] 02-08-2022 End: 02-08-2022 ambulatory Staci Esquivel Other [employer] Other Start: 02-08-2022 Office outpatient ne w 20 minutes Staci Esquivel [facility] Start: 01-31-2022 End: 02-01-[address] DARYL BELTRAN . Facility:[facility] Start: 12-07-2021 End: 12-08-[address] GERA GALEANO Facility:[facility] Start: 10-16-2021 End: 10-17-2021 ambulatory PHYSICIAN UNKNOWN Facility:[facility] Start: 09-07-2021 End: 09-08-[address] GERA GALEANO Facility:[facility] Start: 09-05-2021 End: 09-06-[address] GERA GALEANO Facility:[facility] Payers Date Payer Category Payer Private Health Insurance [id number] 1950 Unknown [id number] 2.16.8 [id number] 1950 Unknown [id number] 2.16.84 0.1.672409.3.579.2.593 1950 Unknown [id number] 2.16.84 0.1.849295.3.579.2.593 1950 Unknown [id number] 2.16.84 0.1.206359.3.579.2.593 1950 Unknown [id number] 2.16.84 0.1.522582.3.579.2.593 1950 Unknown [id number] 2.16.84 0.1.147238.3.579.2.593 1950 Unknown [id number] 2.16.84 0.1.724253.3.579.2.593 1950 Unknown [id number] 2.16.84 0.1.594676.3.579.2.593 1950 Unknown [id number] 2.16.84 0.1.082170.3.579.2.1258 1950 Unknown [id number] 2.16.84 0.1.732192.3.579.2.1258 1950 Unknown [id number] 2.16.84 0.1.028789.3.579.2.1258 1950 Unknown [id number] 2.16.84 0.1.506754.3.579.2.1258 1950 Unknown [id number] 2.16.84 0.1.987687.3.579.2.1258 1950 Unknown [id number] 2.16.84 0.1.233740.3.579.2.1258 1950 Unknown [id number] 2.16.84 0.1.137705.3.579.2.1258 1950 Unknown [id number] 2.16.84 0.1.857197.3.579.2.1258 1950 Unknown [id number] 2.16.84 0.1.946311.3.579.2.1258 1950 Unknown [id number] 2.16.84 0.1.705019.3.579.2.1258 1950 Unknown [id number] 2.16.84 0.1.636642.3.579.2.1258 1950 Unknown [id number] 2.16.840 .1.356742.3.579.2.1258 1950 Unknown [id number] 2.16.840 .1.322036.3.579.2.1259 Social History Date Type Detail Facility Sex Assigned At [employer] Other Progress note 09-17-2023 Note Date & Type Note Facility 09-17-2023 Note [facility] Subjective Teodora Daily is a [...] No swelling. Cervical (more content not included)... [facility] Evaluation note 02-08-2022 Note Date & Type [...] no improvement in 2 to 3 days [employer] Other Consultation note 01-31-2022 Note Date & [...] p.r.n. basis at the patient's discretion. [facility] History general Narrative - Reported Note Date & Type Note Facility History general Narrative - Reported Type Medical History osteoporosis Medical History herniated disc Medical History hypertrophic cardiomyopathy Surgical History Hip Replacement 2017 [employer] Other Summary Purpose Family History No Family History Records FoundNo Family History Records FoundNo Family History Records FoundNo Family History Records FoundNo Family History Records Found Advance Directives No Advanced Directives Records FoundNo Advanced Directives Records FoundNo Advanced Directives Records FoundNo Advanced Directives Records FoundNo Advanced Directives Records Found Additional Source Comments INFORMATION SOURCE (unrecogn ized section and content) DATE CREATED AUTHOR 05/13/2021 [facility] dical Specialist DATE CREATED AUTHOR AUTHOR'S ORGANIZ ATION 10/23/2021 [facility] DATE CREATED AUTHOR AUTHOR'S ORGANIZ ATION 08/03/2022 [facility] DATE CREATED AUTHOR AUTHOR'S ORGANIZ ATION 11/10/2023 [facility] DATE CREATED AUTHOR AUTHOR'S ORGANIZ ATION 12/24/2023 [facility] dical Specialists EPIC REASON FOR VISIT [...] BE BASED ON THE PRIMARY CLINICAL RECORDS. [employer] provides no warranty or guarantee of the accuracy or completeness of information in this document.
--- NOTE | 2024-01-08 13:49 | P.CN_ITS ---
Consult Note: HPI Data of Consult Patient: known to practice within the last 3 years Requesting Physician: Mariaelena Romano NP Primary Care Provider: GERA GALEANO Consult Narrative Reason for consult: f/u Narrative: Teodora Daily a pleasant 73 year old female presents for evaluation and management of chronic pain. Pain today in low back 2-3/10, increasing to 8/10 with stairs, walking, standing, driving. Pain improved with sitting. Patient has failed to benefit from tylenol and motrin and HEP greater than 6 weeks. Patient previously underwent bilateral L4/5 L5/S1 MBB with >80% improvement in pain and functional ability but would like to target higher levels, we trialed bilateral L3/4 L4/5 MBB 31 with 50-60% improvement. Patient would like to update lumbar MRI prior to proceeding with lumbar MBBs and RFAs. cc:: CC: Mariaelena Romano NP Review of Systems ROS Status of ROS 10 or more systems reviewed and unremark able except as noted in history and below Musculoskeletal Reports: back pain, extremity pain and joint pain PFSH PFSH Medical History Osteoarthritis ?M19.90 - Unspecified osteoarthritis, unspecified site (ICD-10) Carpal tunnel syndrome ?G56.00 - Carpal tunnel syndrome, unspecified upper limb (ICD-10) Heart murmur ?R01.1 - Cardiac murmur, unspecified (ICD-10) Hypertrophic cardiomyopathy ?I42.2 - Other hypertrophic cardiomyopathy (ICD-10) HTN (hypertension) ?I10 - Essential (primary) hypertension (ICD-10) Surgical History Hx of tonsillectomy ?Z90.89 - Acquired absence of other organs (ICD-10) History of bladder suspension procedure ?Z98.890 - Other specified postprocedural states (ICD-10) ?Z87.448 - Personal history of other diseases of urinary system (ICD-10) History of foot surgery ?Z98.890 - Other specified postprocedural states (ICD-10) History of hip replacement ?Z96.649 - Presence of unspecified artificial hip joint (ICD-10) History of colon resection ?Z90.49 - Acquired absence of other specified parts of digestive tract (ICD- 10) History of hysterectomy ?Z90.710 - Acquired absence of both cervix and uterus (ICD-10) Meds Home Medications and Allergies Home Medications ?Medication ?Instructions ?Recorded ?Confirmed ?Type aspirin 81 mg capsule 81 mg PO DAILY 08/21/23 01/06/24 History cyclosporine 0.05 % eye drops 1 drp ophthalmic (eye) Q12H 08/21/23 01/06/24 History (Restasis MultiDose) fluticasone propionate 50 1 spray intranasal DAILY PRN 08/21/23 01/06/24 History mcg/actuation nasal allergy symptoms spray,suspension (24 Hour Allergy Relief) irbesartan 75 mg tablet 75 mg PO DAILY 08/21/23 01/06/24 History metoprolol succinate 25 mg 25 mg PO DAILY 08/21/23 01/06/24 History tablet,extended release 24 hr (Toprol XL) paroxetine HCl 20 mg tablet 20 mg PO DAILY 08/21/23 01/06/24 History cyclobenzaprine 10 mg tablet 10 mg PO BID PRN muscle spasm 09/19/23 01/06/24 History Allergies Allergy/AdvReac Type Severity Reaction Status Date / Time oxycodone Allergy Hives Verified 01/06/24 08:12 Sulfa (Sulfonamide Allergy Rash Verified 01/06/24 08:12 Antibiotics) Exam Constitutional Documenting provider has reviewed patient's vital signs: yes Common normals: no apparent distress, oriented x3, healthy appearing, alert and well nourished General appearance: cooperative [facility] Common normals: normocephalic, hearing grossly normal bilaterally and moist oral mucous membranes Head and scalp: normocephalic Eye Common normals: PERRL Pupil: PERRL Neck & C-Spine Common normals: full ROM General: normal visual inspection Chest Common normals: inspection of chest normal Respiratory Common normals: normal respiratory effort, no retractions and no use of accessory muscles Back & Pelvis Lumbar spine/lower back: ROM limited, pain with ROM and straight leg raise negative bilaterally Sacroiliac joints: SI joints normal Other: positive facet loading strength 5/5 in BLE no radiculopathy Extremity Common normals: normal to inspection and full ROM Neuro Common normals: oriented x3, CN's II-XII intact bilaterally, moves all extremities, no focal motor deficits, no sensory deficits noted and deep tendon reflexes 2+ bilaterally Sensorium/orientation: alert Motor exam: strength 5/5 throughout and no movement abnormalities noted Psych Common normals: mental status grossly normal, thought process normal, cooperative, affect normal, speech normal and activity/motor behavior normal Speech: normal speech Thought process: normal thought process Results Additional Findings Additional findings: If on a controlled substance or opioids, I have checked an [place]AR[place] report on this patient and there are no aberrancies noted in the prescribing history.??If on a controlled substance or opioid a drug screen was completed and reviewed within the last year, and if there has not been a drug screen completed we ordered one today to monitor higher risk, state monitored pain medication use. As part of providing excellent, safe, comprehensive care, the following was completed at our patient's visit: 1. A medication reconciliation and review to ensure accurate knowledge of current/active medications, including asking our patients to inform us about any [id number] medications or herbal remedies/nutritional supplements/alternative remedies. 2. A review to specifically ensure our patients have had annual screening for screening for depression, screening for tobacco use, and screening for unhealthy alcohol use. For concerning screenings had a discussion with the patient, provided patient education, and recommended follow-up with primary care provider when appropriate. If patient noted with a risk of falling, they received education on strength, gait, and balance training to prevent future risk of falling. Assessment and Plan Assessment and Plan (1) Lumbar stenosis with neurogenic claudication: (2) Lumbar spondylosis: Plan update lumbar MRI without contrast to evaluate low back pain unresponsive to greater than 6 weeks of provider guided HEP, heat/ice, tylenol, nsaids. hx of multilevel moderate to severe stenosis and degenerative changes on MRI from 2018, no recent MRI request injection records from Dr Roth office continue current medications f/u with orthopedics for bilateral knee pain, failed YOON injections and current insurance will not cover geniculars f/u after lumbar MRI
== END 2024-01-08 13:12 | disposition home or self-care (01) ==
LOC: PM 13:12
PROVIDERS: PCP Internal Medicine; Visit Provider Nurse Practitioner
DX: M48.062 Spinal stenosis, lumbar region with neurogenic claudication (principal); M47.816 Spondylosis without myelopathy or radiculopathy, lumbar region
CPT/HCPCS: G0463

== ENCOUNTER 2024-01-12 08:33 | Outpatient (OUT) | payer MEDICARE, SELFPAY ==
--- NOTE | 2024-01-12 | PCN_ITS ---
CARDIAC STRESS TEST Requesting Physician: Procedure Date: 01/12/2024 INDICATION: Shortness of breath. METHODS: After risks, benefits and alternatives were explained. The patient was brought to the stress lab in a resting and fasting state. She was connected to the appropriate hemodynamic and electrocardiographic monitoring. She underwent a Lexiscan stress test. Technetium Cardiolite was injected per protocol. There were no complications. STRESS TEST INFORMATION: Lexiscan 0.4 mg was infused intravenously. Resting heart rate was 75 beats per minute, increasing to a maximum of 126 beats per minute. Resting blood pressure was 142/82, with a maximum blood pressure of 168/80. The patient had mild shortness of breath that resolved by the completion of the test. ELECTROCARDIOGRAPHY: Rest EKG: This shows sinus rhythm, poor R-wave progression, borderline EKG. During infusion and recovery: No significant ST-T wave changes noted, no significant arrhythmias seen. FINAL IMPRESSIONS: 1. No ischemic EKG changes seen on Lexiscan pharmacological stress test. 2. No significant arrhythmias. 3. Nuclear images are to read, interpreted and reported in a separate dictation. [facility]
--- NOTE | 2024-01-12 | NM_ITS ---
Patient Name: YAO PATEL MR#: [id number] : 1950 Exam Date: 01/12/2024 Ordering Doctor: DR CHRIS GARCIA M.D. RADIOLOGY REPORT PROCEDURE: NM ANNIE PERF SPECT REST STR COMPARISON: None. INDICATIONS: SHORTNESS OF BREATH TECHNIQUE: Exam Description: Stress/Rest one day protocol gated SPECT Rest Imagin.9 mCi Tc-99m Cardiolite IV on 01/12/2024 Stress Imaging 31.8 mCi Tc-99m Cardiolite IV on 01/12/2024 Exercise Protocol: 0.4 mg Lexiscan given IV Heart Rate (bpm): Rest: 75 Max: 126 PMHR: 86 Blood Pressure: Rest: 142/82 Max: 168/80 Symptoms: Rest and peak stress ECG findings were normal and the exercise portion of the study was normal per attending physician Dr. De Los Santos . For more details please see separate cardiac stress test report. FINDINGS: QUALITY OF STUDY: Excellent. PERFUSION DEFECT: None. LOCATION: N/A SIZE: N/A. SEVERITY: N/A. TYPE: N/A. WALL MOTION: Normal. LV SIZE: Normal. 56 mL. TID / TCD: None; 0.8 LVEF: Normal. Calculated EF 92%. SUMMARY: Myocardial perfusion imaging study is NORMAL. CONCLUSION: 1. Normal nuclear medicine myocardial perfusion scan. Dictated by: Bryan Salguero M.D. on 01/13/2024 at 16:27 Approved by: Bryan Salguero M.D. on 01/13/2024 at 16:30
--- OUTSIDE RECORDS SUMMARY | 2024-01-12 08:54 | XMS_ITS | CCD ---
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 Name Role Phone UNKNOWN, PHYSICIAN Referring [...] Reaction(s) Facility (1 source) [facility] Other (1 source) Sulfacetamide Drug Allergy neck swelled, GlycoPure Merged With [facility] Other (2 sources) oxyCODONE Drug Allergy [facility] Repository (2 sources) Sulfonamides (Antibiotic) Drug allergy (disorder) [facility] Repository (1 source) Sulfonamides (Antibiotic); Translations: [SULFA (SULFONAMIDE ANTIBIOTICS)] Propensity to adverse reactions to drug (disorder) 12-26-19 [facility] [place] Repository Medications Current Medications Medication Drug Class(es) [...] 04-05-2022 Episodic Other aftercare (1 source) 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 Order fax[facility] to [facility]. Normal [facility] [place] Office Visiton 09-17-2023 Follow-up visit [id number] Teodora Daily 1950 F Date Provider Department Center 09/17/2023 [facility]RIS GARCIA [facility] Family History Problem Relation Age of Onset Other Mother Hypertrophic cardiomyopathy Sister Stroke Sister Other Sister Hypertrophic cardiomyopathy Brother Family Status - Relation Status Age at Mother Sister Brother Level of Service:57837 MD OFFICE/OUTPATIENT ESTABLISHED MOD MDM 30 MIN [facility] FREE T3on 07-24-2022 FREE T3 2.66 pg/mlL Normal 2.18-3.98 [facility] Comment on above: Performed By: #### T , FT3 #### [facility] [address] [place], [place] [address] Dr. Adolph Clinton FREE T4on 07-24-2022 Free T4 [Mass/Vol] 0.85 ng/dL Normal 0.76-1.46 [facility] Comment on above: Performed By: #### F T4 #### [facility] [address] [place], [place] [address] Dr. Adolph Clinton TSHon 07-24-2022 TSH 2.124 uIU/mL Normal 0.358-3.740 [facility] Comment on above: Performed By: #### T SH, FT3 #### [facility] [address] [place], [place] [address] Dr. Adolph Clinton XR FINGER MIN 2 [...] by: JESUS FELIZ Date: 2022-04-05 19:19 Normal [facility] COVID Quick Testingon 2021 Result Negative [facility] Other Quick Fluon 02-08-2022 FLUAV Ab CF (S) [Titer] Negative [facility] Other FLUBV Ab CF (S) [Titer] Negative [facility] Other MG MAMM SCREEN 3D SHARAD CADon 12-07-2021 MG MAMM SCREEN 3D SHARAD CAD Patient: JORGETEODORAAamir Exam Date: 12/07/2021 : 1950 Gender:F Ordering : DR GERA GALEANO M.D. Admission #: [id number] Family : DR. TEODORA GUAJARDO D.O. Order #: [id number] CLICK HERE TO VIEW EXAM RADIOLOGY REPORT [...] uterine cancer at age 58. LOCATION: [facility] BREAST COMPOSITION: Scattered areas fibroglandular density. [...] Salguero M.D. on 12/07/2021 at 12:13 Normal [facility] XR DEXA BONE DENSITYon 12-07 [...] by: BRYAN SALGUERO Date: 2021-12-07 15:10 Normal [facility] MRI CARDIAC W WO CONTRASTon 10-16-2021 MRI CARDIAC W WO CONTRAST [facility] [place] Department of Radiology [address] [place] [id number] ===== Patient Name: TEODORA DAILY : [...] 2. Electronically signed: Kane Solomon. Transcribed by: [email or web address], User Resident: Electronically Signed by: KANE SOLOMON @ 10/18/2021 02:11 PM Normal [facility] [place] CREATININEon 09-07-2021 Creatinine [Mass/Vol] 0.77 mg/dL Normal 0.55-1.02 [facility] Comment on above: Performed By: #### C IDALIA #### [facility] [address] [place] [address] Dr. Adolph Clinton EGFR-AF IRISH >60 Normal >=60 [facility] Comment on above: Performed By: #### C IDALIA #### [facility] [address] [place] [address] Dr. Adolph Clinton EGFR-NON AF IRISH >60 Normal >=60 [facility] Comment on above: Performed By: #### C IDALIA #### [facility] [address] [place] [address] HEAD WO W CONon 2 CT HEAD WO W CON EXAMINATION: CT HEAD WO W CON HISTORY: Transient cerebral ischemia COMPARISON: None. TECHNIQUE: Multiple computed tomograms of the head were obtained with and without intravenous contrast enhancement. 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 The vasculature about the mcgrath of Martin appears grossly intact. IMPRESSION: There [...] by: KAILEE GARCIA Date: 2021-09-07 13:44 Normal [facility] ECHOCARDIO M/2D COMPLETEon 0 09-05-2021 ECHOCARDIO M/2D COMPLETE Patient: TEODORA DAILY Exam Date: 09/05/2021 : 1950 Gender:F Ordering : DR GERA GALEANO M.D. Admission #: [id number] Family : Order #: [id number] CLICK HERE TO VIEW EXAM ECHOCARDIOGRAM REPORT [...] Area(A4C): 12.70 cm2 Left Atrium Systolic Volume(A2C): 96275 mm3 Left Atrium Systolic Volume(A4C): 14274 mm3 Mitral Valve MV E to A [...] Garcia M.D. on 09/05/2021 at 20:08 Normal [facility] Q - DEJUAN SCREEN IFA W/RFL TIT ER IFAon 05-10-2021 DEJUAN SCREEN, IFA Negative Normal NEGATIVE [facility] Waste Collector Comment on above: Order Comment: [facility] performed at: [employer] [employer] [facility], [address] , [address] [place] [address], [phone], Optics Engineer: Pedro Asencio MD [facility] Date/Time: [facility] [...] AC-0: Negative International Consensus on DEJUAN Patterns (https://doi.org/10.1515/mtjy-1277-0715) For additional information, please refer to http://education.[employer]/faq/ZWQ875 (This link is being provided for informational/ educational purposes only.) Performed By: #### 7 832X, 249X #### [facility] [address] [place] [address] Q - SJOGREN'S ABS (SS-A,SS-B )on 05-10-2021 SJOGREN'S ANTIBODY (SS-A) <1.0 NEG Normal <1.0 NEG [facility] Waste Collector Comment on above: Order Comment: [facility] performed at: [employer] [employer] [facility], [address] , [address] [place], [phone], Optics Engineer: Pedro Asencio MD [facility] Date/Time: [facility] Results Received Date/Time: [facility] Reported Date/Time: Performed By: #### 7 832X, 249X #### [facility] [address] [place] [address] SJOGREN'S ANTIBODY (SS-B) <1.0 NEG Normal <1.0 NEG [facility] Specialist Comment on above: Order Comment: [facility] performed at: [employer] [employer] [facility], [address] [place] [address], [address] [place] [address], [address] [place] [address], Optics Engineer: Pedro Asencio MD [facility] Date/Time: [facility] Results Received Date/Time: [facility] Reported Date/Time: Performed By: #### 7 832X, 249X #### [facility] [address] [place] [address] Q - DEJUAN CASC [id number] CHROMATIN (NUCLEOSOMAL) ANTIBODY <1.0 NEG Normal <1.0 NEG [facility] Specialist Comment on above: Order Comment: [facility] performed at: [employer] [facility], [address] [place] [address], [address] [place] [address], [address] [place] [address], Optics Engineer: Pedro Asencio MD [facility] Date/Time: [id number] [facility] Results Received Date/Time: [facility] Reported Date/Time: [...] 12% Sjogren's syndrome and 8% polymyositis. Ribonucleoprotein (POCKET STITCHER) antibodies are to POCKET STITCHER A and/or POCKET STITCHER 68kD proteins; antibodies to one or both are present in >80% MCTD, 22% to 48% SLE, 14% systemic sclerosis, 12% Sjogren's and 8% polymyositis. Sm/POCKET STITCHER antibodies are directed to epitopes formed in a complex of Sm and POCKET STITCHER; antibodies to the Sm/POCKET STITCHER complex are present in 54% to 94% MCTD, 30% SLE, 4% systemic sclerosis, and 9% Sjogren's and polymyositis. Sm antibody is present in 20% to 30% SLE, 8% MCTD, 10% polymyositis, 0% systemic sclerosis and 4% Sjogren's syndrome. Double stranded DNA, Chromatin, Ribonucleoprotein, Sm/POCKET STITCHER complex and Sm antibodies are present in <2% of normal blood donors. The [facility] does not rule out autoimmune disease characterized by other autoantibody specificities such as rheumatoid arthritis, autoimmune hepatitis, primary biliary cholangitis, autoimmune thyroiditis, Kendall's disease, pernicious anemia, autoimmune neuropathies, vasculitis, celiac disease and bullous disease. Please contact your local [employer] laboratory if you are interested in additional testing. Performed By: #### % IN7, % #### [facility] [address] [place] [address] DNA (DS) ANTIBODY <1 Normal [facility] Waste Collector Comment on above: Order Comment: [facility] performed at: [facility], [address] [place] [address], [address] [place] [address], [phone], Optics Engineer: Pedro Asencio MD [facility] Date/Time: [id number] [facility] Results Received Date/Time: [facility] Reported Date/Time: Result Comment: IU/m L Interpretation < or = 4 Negative 5-9 Indeterminate > or = 10 Positive Performed By: #### % IN7, % #### [facility] [address] [place] [address] POCKET STITCHER ANTIBODY 1.0 POS Abnormal <1.0 NEG [facility] Waste Collector Comment on above: Order Comment: [facility] performed at: [facility], [address] [facility], [address] [place] [address], [phone], Optics Engineer: Pedro Asencio MD [facility] Date/Time: [facility] Results Received Date/Time: [facility] Reported Date/Time: Performed By: #### % IN7, % #### [facility] [address] [place] [address] SM ANTIBODY <1.0 NEG Normal <1.0 NEG [facility] Waste Collector Comment on above: Order Comment: [facility] performed at: [facility], [address] [place] [address], [address] [place] [address], [address] [place] [address], Optics Engineer: Pedro Asencio MD [facility] Date/Time: [facility] Results Received Date/Time: [facility] Reported Date/Time: Performed By: #### % IN7, % #### [facility] [address] [place] [address] SM/POCKET STITCHER ANTIBODY <1.0 NEG Normal <1.0 NEG [facility] Waste Collector Comment on above: Order Comment: [facility] performed at: [facility], [address] [place] [address], [address] [place] [address], [address] [place] [address], Optics Engineer: Pedro Asencio MD [facility] Date/Time: [facility] Results Received Date/Time: [facility] Reported Date/Time: Performed By: #### % IN7, % #### [facility] [address] [place] [address] Q - DEJUAN MULTIPLEX W/ REFLEX TO 11 ANTIBODY CASCADEon 05-01-2021 ANACHOICE(R) SCREEN Positive Abnormal NEGATIVE [facility] Specialist Comment on above: Order Comment: [facility] performed at: [facility], [address] [place] [address], [address] [place] [address], [address] [place] [address], Optics Engineer: Pedro Asencio MD [facility] Date/Time: [facility] Results Received Date/Time: [facility] Reported Date/Time: Result Comment: A po sitive DEJUAN, Multiplex reflexes to the 3 Tiered Multiplex 11 Antibody [facility]. Testing in the [facility] stops at the first positive result and does not preclude additional positive results. Further laboratory testing may be considered if clinically indicated. For additional information, please refer to http://education.[employer]/faq/IYE728 (This link is being provided for informational/ educational purposes only.) Performed By: #### % IN7, % #### [facility] [address] [place] [address] Q - POCKET STITCHER INTERPon 05-01-2021 INTERPRETATION SEE NOTE Normal [facility] Waste Collector Comment on above: Order Comment: [facility] performed at: [employer], [address] [place] [address], [address] [place] [address], [phone], Optics Engineer: Pedro Asencio MD [facility] Date/Time: [facility] Results Received Date/Time: [facility] Reported Date/Time: Result Comment: POCKET STITCHER antibody is found in patients with mixed [...] IN7, % #### [facility] [address] [place] [address] Vital Signs Date Time Vital Sign Value Performing Clinician Facility 02-08-2022 13:05-0400 Body height 158.75 cm Staci Sierra Other [facility] Other 02-08-2022 13:05-0400 Body mass index (BMI) [Ratio] 33.29 kg/m2 Staci Esquivel Other [facility] Other 02-08-2022 13:05-0400 Body temperature 101 [degF] Staci Esquivel Other [facility] Other 02-08-2022 13:05-0400 Body weight 83.92 kg Staci Esquivel Other [facility] Other 02-08-2022 13:05-0400 Respiratory rate 18 /min Staci Esquivel Other [facility] Other 02-08-2022 13:05-0400 SaO2% (BldA) [Mass fraction] 95 % Staci Esquivel Other [facility] Other Encounters Encounter Date Encounter Type Care Provider Facility Start: 12-23-2023 End: 12-23-2023 ambulatory TEODORA GUAJARDO Not Available Start: 11-24-2023 End: 11-24-2023 ambulatory LINDSEY H TIMMIS Not Available Start: 09-30-2023 End: 09-30-2023 ambulatory CHET MCLAUGHLIN Not Available Start: 09-17-2023 End: 09-17-2023 ambulatory SKYE B APLING Not Available Start: 09-17-2023 End: 09-17-2023 ambulatory [facility] Start: 08-20-2023 End: 08-20-2023 ambulatory SKYE [...] 02-08-2022 End: 02-08-2022 ambulatory Staci Esquivel Other [facility] Other Start: 02-08-2022 Office outpatient ne w 20 minutes Staci Esquivel [facility] Start: 01-31-2022 End: 02-01-[address] DARYL BELTRAN . Facility:[facility] Start: 12-07-2021 End: 12-08-[address] GERA GALEANO Facility:[facility] Start: 10-16-2021 End: 10-17-2021 ambulatory PHYSICIAN UNKNOWN Facility:[facility] Start: 09-07-2021 End: 09-08-[address] GERA GALEANO Facility:[facility] Start: 09-05-2021 End: 09-06-[address] GERA GALEANO Facility:[facility] Payers Date Payer Category Payer Private Health Insurance [id number] 1950 Unknown [id number] 2.16.8 [id number] 1950 Unknown [id number] 2.16.84 0.1.765727.3.579.2.593 1950 Unknown [id number] 2.16.84 0.1.891078.3.579.2.593 1950 Unknown [id number] 2.16.84 0.1.508277.3.579.2.593 1950 Unknown [id number] 2.16.84 0.1.995407.3.579.2.593 1950 Unknown [id number] 2.16.84 0.1.644860.3.579.2.593 1950 Unknown [id number] 2.16.84 0.1.129185.3.579.2.593 1950 Unknown [id number] 2.16.84 0.1.836552.3.579.2.593 1950 Unknown [id number] 2.16.84 0.1.432827.3.579.2.1258 1950 Unknown [id number] 2.16.84 0.1.627649.3.579.2.1258 1950 Unknown [id number] 2.16.84 0.1.928824.3.579.2.1258 1950 Unknown [id number] 2.16.84 0.1.403621.3.579.2.1258 1950 Unknown [id number] 2.16.84 0.1.216776.3.579.2.1258 1950 Unknown [id number] 2.16.84 0.1.796697.3.579.2.1258 1950 Unknown [id number] 2.16.84 0.1.504784.3.579.2.1258 1950 Unknown [id number] 2.16.84 0.1.716999.3.579.2.1258 1950 Unknown [id number] 2.16.84 0.1.270654.3.579.2.1258 1950 Unknown [id number] 2.16.84 0.1.058987.3.579.2.1258 1950 Unknown [id number] 2.16.84 0.1.721427.3.579.2.1258 1950 Unknown [id number] 2.16.840 .1.595625.3.579.2.1258 1950 Unknown [id number] 2.16.840 .1.808748.3.579.2.1259 Social History Date Type Detail Facility Sex Assigned At [facility] Other Progress note 09-17-2023 Note Date & Type Note Facility 09-17-2023 Note [facility] Subjective Teodora Daily is a [...] No swelling. Cervical (more content not included)... [facility] [place] Evaluation note 02-08-2022 Note Date & Type [...] no improvement in 2 to 3 days [facility] Other Consultation note 01-31-2022 Note Date & [...] p.r.n. basis at the patient's discretion. [facility] History general Narrative - Reported Note Date & Type Note Facility History general Narrative - Reported Type Medical History osteoporosis Medical History herniated disc Medical History hypertrophic cardiomyopathy Surgical History Hip Replacement 2017 [facility] Other Summary Purpose Family History No Family History Records FoundNo Family History Records FoundNo Family History Records FoundNo Family History Records FoundNo Family History Records Found Advance Directives No Advanced Directives Records FoundNo Advanced Directives Records FoundNo Advanced Directives Records FoundNo Advanced Directives Records FoundNo Advanced Directives Records Found Additional Source Comments INFORMATION SOURCE (unrecogn ized section and content) DATE CREATED AUTHOR 05/13/2021 [facility] dical Specialist DATE CREATED AUTHOR AUTHOR'S ORGANIZ ATION 10/23/2021 [facility] DATE CREATED AUTHOR AUTHOR'S ORGANIZ ATION 08/03/2022 [facility] DATE CREATED AUTHOR AUTHOR'S ORGANIZ ATION 11/10/2023 [facility] DATE CREATED AUTHOR AUTHOR'S ORGANIZ ATION 12/24/2023 [facility] dical Specialists EPIC REASON FOR VISIT [...] BE BASED ON THE PRIMARY CLINICAL RECORDS. [employer] provides no warranty or guarantee of the accuracy or completeness of information in this document.
[2024-01-12] MEDS: REGADENOSON 0.4 MG/5 ML SYRINGE IV (10:11)
--- NOTE | 2024-01-12 10:11 | PC.NURSE ---
Nursing Note Cardiac Stress Test Reviewed: Medication, allergies and patient history reviewed. Stress Test: [x ] Patient tolerated stress test well. [ x] Patient unable to tolerate walking on treadmill. Switched to Lexiscan stress test. [x ] No chest pain noted per patient [ ] Chest pain that resolved prior to leaving stress lab. [ ] No dyspnea noted. [x ] Dyspnea that resolved prior to leaving stress lab. [x ] Patient left stress lab asymptomatic and hemodynamically stable. [ ] Patient taken to the Emergency Room due to non-resolving symptoms following stress test. [ x] Patient achieved target heart rate. [ ] Patient unable to achieve target heart rate. [ ] Aminophylline administered as reversal agent to Lexiscan (Regadenoson). [ ] Nitro administered. Nursing Comments: Patient attempted to complete test on the treadmill today. She was able to meet target heart rate within 2 minutes on the treadmill but was unable to walk any longer and was not on long enough to administer cardiolyte. Patient did complain of some shortness of breath that was resolved prior to leaving the stress lab. Patient was switched to a lexiscan test which was completed.
== END 2024-01-12 08:34 | disposition home or self-care (01) ==
LOC: NM 08:33
PROVIDERS: PCP Internal Medicine; Visit Provider Internal Medicine Interventional Cardiology
DX: R06.02 Shortness of breath (principal)
CPT/HCPCS: 78452; 93017; A9500; J2785

== ENCOUNTER 2024-01-15 14:21 | Outpatient (OUT) | payer MEDICARE, SELFPAY ==
--- NOTE | 2024-01-15 14:27 | MM_ITS ---
Patient Name: YAO PATEL MR#: [id number] : 1950 Exam Date: 01/15/2024 Ordering Doctor: DR. YAO GUAJARDO D.O. RADIOLOGY REPORT PROCEDURE: MM TOMOSYNTHESIS SCREENING BI COMPARISON: MM TOMOSYNTHESIS SCREENING BI, 12/19/2022. MG MAMM SCREEN 3D SHARAD CAD, 12/07/2021. INDICATIONS: Screening for malignant neoplasm Calculator Name NCI Breast Cancer Risk Assessment Tool 5 Year Breast Cancer Risk 2.10% Lifetime Breast Cancer Risk 4.60% Personal Breast Cancer No Personal Ovarian Cancer No Treatments None Family Cancers Sister with uterine cancer at age ~60. LOCATION: [facility] BREAST COMPOSITION: There are scattered areas of fibroglandular density. FINDINGS: DIAGNOSTIC CATEGORY 1--NEGATIVE. RIGHT BREAST: No significant suspicious finding. No significant change has occurred. LEFT BREAST: No significant suspicious finding. No significant change has occurred. RECOMMENDATIONS: ROUTINE MAMMOGRAM AND CLINICAL EVALUATION IN 12 MONTHS. PLEASE NOTE: A NORMAL MAMMOGRAM DOES NOT EXCLUDE THE POSSIBILITY OF BREAST CANCER. A CLINICALLY SUSPICIOUS PALPABLE LUMP SHOULD BE BIOPSIED. Dictated by: Bryan Salguero M.D. on 01/15/2024 at 15:44 Approved by: Bryan Salguero M.D. on 01/15/2024 at 15:46
--- NOTE | 2024-01-15 14:28 | XR_ITS ---
[address] [address] Patient Name: YAO PATEL MRN: [id number] date: 1950 Sex: F Assigned Patient Location: [facility] Current Patient Location: Accession/Order Number: [id number] Exam Date: 01/15/2024 14:46 Report Date: 01/16/2024 04:38 At the request of: YAO GUAJARDO Procedure: XR DEXA axial skeleton EXAMINATION: XR DEXA axial skeleton HISTORY: Screening for osteoporosis, postmenopausal status, age relat COMPARISON: DEXA bone densitometry 12/07/2021 TECHNIQUE: Dual-energy X-ray absorptiometry (DXA) was performed. FINDINGS: SPINE ANALYSIS: Average bone mineral density is 1.001 g/cm2. T-score (standard deviation relative to young adult mean): -1.5 . Not previously evaluated. HIP ANALYSIS: Lowest bone mineral density is within the right femoral neck, 0.779 g/cm2. T-score (standard deviation relative to young adult mean): -1.9 . -5.7% change since prior study. XR/XR DEXA axial skeleton IMPRESSION: World Health Organization Classification: Osteopenia - Moderate Fracture Risk FRAX: Cannot be calculated. Pharmacologic treatment recommendations * No uniform recommendation applies to all patients. Management plans must be individualized. * Consider initiating pharmacologic treatment in postmenopausal women and men >= 50 years of age who have the following: Primary fracture prevention: * T-score <= - 2.5 at the femoral neck, total hip, lumbar spine, 33% radius (some uncertainty with existing data) by DXA. * Low bone mass (osteopenia: T-score between - 1.0 and - 2.5) at the femoral neck or total hip by DXA with a 10-year hip fracture risk >= 3% or a 10-year major osteoporosis-related fracture risk >= 20% (i.e., clinical vertebral, hip, forearm, or proximal humerus) based on the US-adapted FRAXregistered model. Secondary fracture prevention: * Fracture of the hip or vertebra regardless of BMD [4, 5]. * Fracture of proximal humerus, pelvis, or distal forearm in persons with low bone mass (osteopenia: T-score between - 1.0 and - 2.5). The decision to treat should be individualized in persons with a fracture of the proximal humerus, pelvis, or distal forearm who do not have osteopenia or low BMD [12, 13]. Gloria MS, Mela SL, Maddy KL, Mag EM, Fei KG, AJ, Duke ES. The clinician's guide to prevention and treatment of osteoporosis. Osteoporos Int. 2021;33(10):7442-8333. doi: 10.1007/v68293-745-69859-v. Epub 2021Aug 16. Erratum in: Osteoporos Int. 2021Nov 15;: PMID: [id number]; PMCID: [id number]. Electronically authenticated by: SEBASTIAN MEEHAN Date: 01/16/2024 04:38
--- OUTSIDE RECORDS SUMMARY | 2024-01-15 14:33 | XMS_ITS | CCD ---
Author Organization [facility] CliniSyri Care Team Providers Care Environmental Aid Name Role Phone UNKNOWN, PHYSICIAN Referring Unavailable [...] Reaction(s) Facility (1 source) [facility]ODONE [facility] Other (1 source) Sulfacetamide Drug Allergy neck swelled, [employer] [facility] Other (2 sources) oxyCODONE Drug Allergy [facility] Repository (2 sources) Sulfonamides (Antibiotic) Drug allergy (disorder) [facility] Repository (1 source) Sulfonamides (Antibiotic); Translations: [SULFA (SULFONAMIDE ANTIBIOTICS)] Propensity to adverse reactions to drug (disorder) 12-26-19 [facility] Repository Medications Current Medications Medication [...] 04-05-2022 Episodic Other aftercare (1 source) 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 Order faxed to [facility]. Normal [facility] Office Visiton 09-17-2023 Follow-up visit [id number] Teodora Daily 1950 F Date Provider Department Center 09/17/2023 [facility] Family History Problem Relation Age of Onset Other Mother Hypertrophic cardiomyopathy Sister Stroke Sister Other Sister Hypertrophic cardiomyopathy Brother Family Status - Relation Status Age at Mother Sister Brother Level of Service:86665 AL OFFICE/OUTPATIENT ESTABLISHED MOD MDM 30 MIN [facility] FREE T3on 07-24-2022 FREE T3 2.66 pg/mlL Normal 2.18-3.98 [facility] Comment on above: Performed By: #### T , FT3 #### [facility] Laboratory [address], [place] [address] Dr. Adolph Clinton FREE T4on 07-24-2022 Free T4 [Mass/Vol] 0.85 ng/dL Normal 0.76-1.46 [facility] Comment on above: Performed By: #### F T4 #### [facility] [address], [place] [address] Dr. Adolph Clinton TSHon 07-24-2022 TSH 2.124 uIU/mL Normal 0.358-3.740 [facility] Comment on above: Performed By: #### T SH, FT3 #### [facility] [address], [place] [address] Dr. Adolph Clinton XR FINGER MIN 2 [...] by: JESUS FELIZ Date: 2022-04-05 19:[address] [facility] COVID Quick Testingon 2021 Result Negative [facility] Other Quick Fluon 02-08-2022 FLUAV Ab CF (S) [Titer] Negative [facility] Other FLUBV Ab CF (S) [Titer] Negative [facility] Other MG MAMM SCREEN 3D SHARAD CADon 12-07-2021 MG MAMM SCREEN 3D SHARAD CAD Patient: JORGETEODORAAamir Exam Date: 12/07/2021 : 1950 Gender:F Ordering : DR GERA GALEANO M.D. Admission #: [id number] Family : DR. TEODORA GUAJARDO D.O. Order #: [id number] CLICK HERE TO VIEW EXAM RADIOLOGY REPORT [...] uterine cancer at age 58. LOCATION: [facility] BREAST COMPOSITION: Scattered areas fibroglandular density. FINDINGS: [...] Salguero M.D. on 12/07/2021 at 12:[address] [facility] XR DEXA BONE DENSITYon 12-07 XR [...] by: BRYAN SALGUERO Date: 2021-12-07 15:[address] [facility] MRI CARDIAC W WO CONTRASTon 10-16-2021 MRI CARDIAC W WO CONTRAST [facility] Department of Radiology [address] [place] [id number] ===== Patient Name: TEODORA DAILY : [...] 2. Electronically signed: Kane Solomon. Transcribed by: [email or web address], User Resident: Electronically Signed by: KANE SOLOMON @ 10/18/2021 02:11 PM Normal [facility] CREATININEon 09-07-2021 Creatinine [Mass/Vol] 0.77 mg/dL Normal 0.55-1.[address] [facility] Comment on above: Performed By: #### C IDALIA #### [facility] [address] [place] [address] Dr. Adolph Clinton EGFR-AF GHANAIAN >60 Normal >=60 [facility] Comment on above: Performed By: #### C IDALIA #### [facility] [address] [place] [address] Dr. Adolph Clinton EGFR-NON AF GHANAIAN >60 Normal >=60 [facility] Comment on above: Performed By: #### C IDALIA #### [facility] [address] [place] [address] HEAD WO W CONon 2 CT HEAD WO W CON EXAMINATION: CT HEAD WO W CON HISTORY: Transient cerebral ischemia COMPARISON: None. TECHNIQUE: Multiple computed tomograms of the head were obtained with and without intravenous contrast enhancement. 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 The vasculature about the [place] of [place] appears grossly intact. IMPRESSION: There [...] by: KAILEE GARCIA Date: 2021-09-07 13:[address] [facility] ECHOCARDIO M/2D COMPLETEon 0 09-05-2021 ECHOCARDIO M/2D COMPLETE Patient: TEODORA DAILY Exam Date: 09/05/2021 : 1950 Gender:F Ordering : DR GERA GALEANO M.D. Admission #: [id number] Family : Order #: [id number] CLICK HERE TO VIEW EXAM ECHOCARDIOGRAM REPORT [...] Area(A4C): 12.70 cm2 Left Atrium Systolic Volume(A2C): 07810 mm3 Left Atrium Systolic Volume(A4C): 42384 mm3 Mitral Valve MV E to A [...] Garcia M.D. on 09/05/2021 at 20:[address] [facility] Q - DEJUAN SCREEN IFA W/RFL TIT ER IFAon 05-10-2021 DEJUAN SCREEN, IFA Negative Normal NEGATIVE [facility] Front Desk Representative Comment on above: Order Comment: [facility] Testing performed at: [employer], [facility], [address] , [address] [place] [address], [phone], Belling Machine Operator: Pedro Asencio MD [facility] Collection [...] inflammatory myopathies. AC-0: Negative International Consensus on DEJUNA Patterns (https://doi.org/10.1515/[email or web address]) For additional information, please refer to http://education.[employer].[facility]/faq/WAM506 (This link is being provided for informational/ educational purposes only.) Performed By: #### 7 832X, 249X #### [facility] Default [address] [address] Q - SJOGREN'S ABS (SS-A,SS-B )on 05-10-2021 SJOGREN'S ANTIBODY (SS-A) <1.0 NEG Normal <1.0 NEG [facility] Front Desk Representative Comment on above: Order Comment: [facility] performed at: [employer], [facility], [address] , [address] [place], [address], Belling Machine Operator: Pedro Asencio MD [facility] Collection Date/Time: [facility] Results Received Date/Time: [facility] Reported Date/Time: Performed By: #### 7 832X, 249X #### [facility] Default [address] [place] [address] SJOGREN'S ANTIBODY (SS-B) <1.0 NEG Normal <1.0 NEG [facility] Specialist Comment on above: Order Comment: [facility] performed at: [employer], [facility], [address] [place] [address], [address] [place] [address], [address] [place] [address], Belling Machine Operator: Pedro Asencio MD [facility] Date/Time: [facility] Results Received Date/Time: [facility] Reported Date/Time: Performed By: #### 7 832X, 249X #### [facility] Default [address] [place] [address] Q - DEJUAN CASC [id number] CHROMATIN (NUCLEOSOMAL) ANTIBODY <1.0 NEG Normal <1.0 NEG [facility] Specialist Comment on above: Order Comment: [facility] performed at: [employer], [facility], [address] [place] [address], [address] [place] [address], [address] [place] [address], Belling Machine Operator: Pedro Asencio MD [facility] Date/Time: [id number] [facility] Results Received Date/Time: [facility] Reported Date/Time: [...] 12% Sjogren's syndrome and 8% polymyositis. Ribonucleoprotein (GLUE JOINTER OPERATOR) antibodies are to GLUE JOINTER OPERATOR A and/or GLUE JOINTER OPERATOR 68kD proteins; antibodies to one or both are present in >80% MCTD, 22% to 48% SLE, 14% systemic sclerosis, 12% Sjogren's and 8% polymyositis. Sm/GLUE JOINTER OPERATOR antibodies are directed to epitopes formed in a complex of Sm and GLUE JOINTER OPERATOR; antibodies to the Sm/GLUE JOINTER OPERATOR complex are present in 54% to 94% MCTD, 30% SLE, 4% systemic sclerosis, and 9% Sjogren's and polymyositis. Sm antibody is present in 20% to 30% SLE, 8% MCTD, 10% polymyositis, 0% systemic sclerosis and 4% Sjogren's syndrome. Double stranded DNA, Chromatin, Ribonucleoprotein, Sm/GLUE JOINTER OPERATOR complex and Sm antibodies are present in <2% of normal blood donors. The [place] does not rule out autoimmune disease characterized by other autoantibody specificities such as rheumatoid arthritis, autoimmune hepatitis, primary biliary cholangitis, autoimmune thyroiditis, Kendall's disease, pernicious anemia, autoimmune neuropathies, vasculitis, celiac disease and bullous disease. Please contact your local [facility] laboratory if you are interested in additional testing. Performed By: #### % IN7, % #### [facility] Default [address] [place] [address] DNA (DS) ANTIBODY <1 Normal [facility] Front Desk Representative Comment on above: Order Comment: [facility] Testing performed at: [facility], [address] [place] [address], [address] [place] [address], [phone], Belling Machine Operator: Pedro Asencio MD [facility] Date/Time: [id number] [facility] Results Received Date/Time: [facility] Reported Date/Time: Result Comment: IU/m L Interpretation < or = 4 Negative 5-9 Indeterminate > or = 10 Positive Performed By: #### % IN7, % #### [facility] Default [address] [place] [address] GLUE JOINTER OPERATOR ANTIBODY 1.0 POS Abnormal <1.0 NEG [facility] Front Desk Representative Comment on above: Order Comment: [facility] performed at: [facility], [address] [facility], [address] [place] [address], [phone], Belling Machine Operator: Pedro Asencio MD [facility] Collection Date/Time: [facility] Results Received Date/Time: [facility] Reported Date/Time: Performed By: #### % IN7, % #### [facility] Default [address] [place] [address] SM ANTIBODY <1.0 NEG Normal <1.0 NEG [facility] Front Desk Representative Comment on above: Order Comment: [facility] performed at: [facility], [address] [place] [address], [address] [place] [address], [address] [place] [address], Belling Machine Operator: Pedro Asencio MD [facility] Collection Date/Time: [facility] Results Received Date/Time: [facility] Reported Date/Time: Performed By: #### % IN7, % #### [facility] Default [address] [place] [address] SM/GLUE JOINTER OPERATOR ANTIBODY <1.0 NEG Normal <1.0 NEG [facility] Front Desk Representative Comment on above: Order Comment: [facility] performed at: [facility], [address] [place] [address], [address] [place] [address], [address] [place] [address], Belling Machine Operator: Pedro Asencio MD [facility] Date/Time: [facility] Results Received Date/Time: [facility] Reported Date/Time: Performed By: #### % IN7, % #### [facility] Default [address] [place] [address] Q - DEJUAN MULTIPLEX W/ REFLEX TO 11 ANTIBODY CASCADEon 05-01-2021 ANACHOICE(R) SCREEN Positive Abnormal NEGATIVE [facility] Specialist Comment on above: Order Comment: [facility] performed at: [facility], [address] [place] [address], [address] [place] [address], [address] [place] [address], Belling Machine Operator: Pedro Asencio MD [facility] Date/Time: [facility] Results Received Date/Time: [facility] Reported Date/Time: Result Comment: A po sitive DEJUAN, Multiplex reflexes to the 3 Tiered Multiplex 11 Antibody [place]. Testing in the [place] stops at the first positive result and does not preclude additional positive results. Further laboratory testing may be considered if clinically indicated. For additional information, please refer to http://education.[employer]/faq/GRL458 (This link is being provided for informational/ educational purposes only.) Performed By: #### % IN7, % #### [facility] Default [address] [place] [address] Q - GLUE JOINTER OPERATOR INTERPon 05-01-2021 INTERPRETATION SEE NOTE Normal [facility] Front Desk Representative Comment on above: Order Comment: [facility] performed at: [employer] [employer], [address] [place] [address], [address] [place] [address], [phone], Belling Machine Operator: Pedro Asencio MD [facility] Date/Time: [facility] Results Received Date/Time: [facility] Reported Date/Time: Result Comment: GLUE JOINTER OPERATOR antibody is found in patients with [...] IN7, % #### [facility] Default [address] [place] [address] Vital Signs Date Time Vital Sign Value Performing Clinician Facility 02-08-2022 13:05-0400 Body height 158.75 cm Staci Sierra Other [facility] Other 02-08-2022 13:05-0400 Body mass index (BMI) [Ratio] 33.29 kg/m2 Staci Esquivel Other [facility] Other 02-08-2022 13:05-0400 Body temperature 101 [degF] Staci Esquivel Other [facility] Other 02-08-2022 13:05-0400 Body weight 83.92 kg Staci Esquivel Other [facility] Other 02-08-2022 13:05-0400 Respiratory rate 18 /min Staci Esquivel Other [facility] Other 02-08-2022 13:05-0400 SaO2% (BldA) [Mass fraction] 95 % Staci Esquivel Other [facility] Other Encounters Encounter Date Encounter Type Care Provider Facility Start: 12-23-2023 End: 12-23-2023 ambulatory TEODORA GUAJARDO Not Available Start: 11-24-2023 End: 11-24-2023 ambulatory LINDSEY H TIMMIS Not Available Start: 09-30-2023 End: 09-30-2023 ambulatory CHET MCLAUGHLIN Not Available Start: 09-17-2023 End: 09-17-2023 ambulatory SKYE B APLING Not Available Start: 09-17-2023 End: 09-17-2023 ambulatory [facility] Start: 08-20-2023 End: 08-20-2023 ambulatory SKYE [...] 02-08-2022 End: 02-08-2022 ambulatory Staci Esquivel Other [facility] Other Start: 02-08-2022 Office outpatient ne w 20 minutes Staci Esquivel [facility] Start: 01-31-2022 End: 02-01-[address] DARYL BELTRAN . Facility:[facility] Start: 12-07-2021 End: 12-08-[address] GERA GALEANO Facility:[facility] Start: 10-16-2021 End: 10-17-2021 ambulatory PHYSICIAN UNKNOWN Facility:[facility] Start: 09-07-2021 End: 09-08-[address] GERA GALEANO Facility:[facility] Start: 09-05-2021 End: 09-06-[address] GERA GALEANO Facility:[facility] Payers Date Payer Category Payer Private Health Insurance [id number] 1950 Unknown [id number] 2.16.8 [id number] 1950 Unknown [id number] 2.16.84 0.1.802490.3.579.2.593 1950 Unknown [id number] 2.16.84 0.1.841459.3.579.2.593 1950 Unknown [id number] 2.16.84 0.1.851560.3.579.2.593 1950 Unknown [id number] 2.16.84 0.1.321132.3.579.2.593 1950 Unknown [id number] 2.16.84 0.1.778755.3.579.2.593 1950 Unknown [id number] 2.16.84 0.1.836992.3.579.2.593 1950 Unknown [id number] 2.16.84 0.1.880652.3.579.2.593 1950 Unknown [id number] 2.16.84 0.1.675043.3.579.2.1258 1950 Unknown [id number] 2.16.84 0.1.323725.3.579.2.1258 1950 Unknown [id number] 2.16.84 0.1.884767.3.579.2.1258 1950 Unknown [id number] 2.16.84 0.1.022277.3.579.2.1258 1950 Unknown [id number] 2.16.84 0.1.294536.3.579.2.1258 1950 Unknown [id number] 2.16.84 0.1.022977.3.579.2.1258 1950 Unknown [id number] 2.16.84 0.1.119594.3.579.2.1258 1950 Unknown [id number] 2.16.84 0.1.275788.3.579.2.1258 1950 Unknown [id number] 2.16.84 0.1.185726.3.579.2.1258 1950 Unknown [id number] 2.16.84 0.1.437328.3.579.2.1258 1950 Unknown [id number] 2.16.84 0.1.585814.3.579.2.1258 1950 Unknown [id number] 2.16.840 .1.881996.3.579.2.1258 1950 Unknown [id number] 2.16.840 .1.585693.3.579.2.1259 Social History Date Type Detail Facility Sex Assigned At [facility] Other Progress note 09-17-2023 Note Date & Type Note Facility 09-17-2023 Note [place] [facility] Subjective Teodora Daily is a [...] No swelling. Cervical (more content not included)... [facility] Evaluation note 02-08-2022 Note Date [...] no improvement in 2 to 3 days [facility] Other Consultation note 01-31-2022 Note Date & [...] p.r.n. basis at the patient's discretion. [facility] History general Narrative - Reported Note Date & Type Note Facility History general Narrative - Reported Type Medical History osteoporosis Medical History herniated disc Medical History hypertrophic cardiomyopathy Surgical History Hip Replacement 2017 [facility] Other Summary Purpose Family History No Family History Records FoundNo Family History Records FoundNo Family History Records FoundNo Family History Records FoundNo Family History Records Found Advance Directives No Advanced Directives Records FoundNo Advanced Directives Records FoundNo Advanced Directives Records FoundNo Advanced Directives Records FoundNo Advanced Directives Records Found Additional Source Comments INFORMATION SOURCE (unrecogn ized section and content) DATE CREATED AUTHOR 05/13/2021 [facility] dical Specialist DATE CREATED AUTHOR AUTHOR'S ORGANIZ ATION 10/23/2021 [facility] DATE CREATED AUTHOR AUTHOR'S ORGANIZ ATION 08/03/2022 [facility] DATE CREATED AUTHOR AUTHOR'S ORGANIZ ATION 11/10/2023 [facility] DATE CREATED AUTHOR AUTHOR'S ORGANIZ ATION 12/24/2023 [facility] dical Specialists EPIC REASON FOR [...] BE BASED ON THE PRIMARY CLINICAL RECORDS. [employer] provides no warranty or guarantee of the accuracy or completeness of information in this document.
== END 2024-01-15 14:22 | disposition home or self-care (01) ==
LOC: MAMMO 14:21
PROVIDERS: PCP Internal Medicine; Visit Provider Obstetrics & Gynecology
DX: Z12.31 Encounter for screening mammogram for malignant neoplasm of breast (principal); Z13.820 Encounter for screening for osteoporosis; Z78.0 Asymptomatic menopausal state; Z80.8 Family history of malignant neoplasm of other organs or systems; M85.80 Other specified disorders of bone density and structure, unspecified site
CPT/HCPCS: 77063; 77067; 77080

== ENCOUNTER 2024-01-22 12:32 | Outpatient (OUT) | payer MEDICARE, SELFPAY ==
--- NOTE | 2024-01-22 12:36 | MR_ITS ---
The [address] [address] Patient Name: YAO PATEL MRN: [id number] date: 1950 Sex: F Assigned Patient Location: MRI Current Patient Location: MRI Accession/Order Number: [id number] Exam Date: 01/22/2024 13:00 Report Date: 01/22/2024 14:44 At the request of: CHRISTOFER MATHEW Procedure: MR lumbar spine wo con MR lumbar spine wo con, 01/22/2024 1:00 PM EDT INDICATION: Lumbar spondylosis COMPARISON: Prior x-ray of the lumbar spine dated 05/12/2018 and MRI of the lumbar spine dated 11/26/2017 TECHNIQUE: Multiplanar, multisequential MRI images of lumbar spine were obtained without contrast. FINDINGS: For dictation purposes, the lowest complete disc space in the lumbar spine considered as L5-S1. There is normal physiologic lumbar lordosis and dextroscoliosis centered on L3-L4. The vertebral height is preserved. The conus medullaris is at the level of L2. No signal abnormality within the visualized spinal cord is noted. Levels of T11-T12, and T12-L1 are unremarkable. At the level of L1-L2, there are disc bulge with mild bilateral neuroforaminal narrowing and no canal stenosis. At the level of L2-L3, there are disc bulge with moderate bilateral neuroforaminal narrowing and moderate canal stenosis. At the level of L3-4, there are disc bulge with moderate right and severe left neuroforaminal narrowing and moderate canal stenosis. There are Modic type II changes at this level. At the level of L4-5, there are disc bulge with mild right and moderate left neuroforaminal narrowing and moderate canal stenosis. At the level of L5-S1, there are disc bulge with mild right neuroforaminal narrowing and no canal stenosis. The paraspinal muscles are unremarkable. MR/MR lumbar spine wo con IMPRESSION: Moderate degenerative changes of lumbar spine in particular at L2-L3, L3-L4 and L4-L5. Electronically authenticated by: JAKE VAZQUEZ Date: 01/22/2024 14:44
--- OUTSIDE RECORDS SUMMARY | 2024-01-22 12:52 | XMS_ITS | CCD ---
Author Organization [facility] Care Team Providers Care Culture Manager Name Role Phone UNKNOWN, PHYSICIAN Referring Unavailable [...] Care Unavailable GALEANO, DR BOSS Consulting Unavailable NEFCY, KAILEE Consulting Unavailable GALEANO, DR BOSS Attending Unavailable GALEANO, DR BOSS Admitting Unavailable GALEANO, DR BOSS Primary Care Unavailable GALEANO, DR BOSS Consulting Unavailable GALEANO, DR BOSS Admitting Unavailable MISC, DR BEEBE Consulting Unavailable FROYLAN, DR BOSS Primary Care Unavailable FROYLAN, DR BOSS Attending Unavailable MAMADOUMILINDSEY Juarez Attending Unavailable GERA GALEANO Referring Unavailable APLINGSKYE Attending Unavailable APLINGSKYE Referring Unavailable EMIGDIO COURTNEY Attending Unavailable CELSA MANZANARES Attending Unavailable APLSKYE HELTON Attending Unavailable APLINGSKYE Referring Unavailable LINDSEY RAYMUNDO Attending Unavailable APLSKYE HELTON Attending Unavailable CHET MCLAUGHLIN Attending Unavailable CHET MCLAUGHLIN Referring Unavailable LINDSEY RAYMUNDO Attending Unavailable TEODORA GUAJARDO Attending Unavailable CHRIS GARCIA Attending Unavailable Allergies Allergy Classification Reported Allergen(s) Allergy Type Date of Onset Reaction(s) Facility (1 source) oxyCODONE Drug Allergy [facility] [employer] Other (1 source) Sulfacetamide Drug Allergy [facility] [employer] Other (2 sources) oxyCODONE Drug Allergy [facility] Repository (2 sources) Sulfonamides (Antibiotic) Drug allergy (disorder) [facility] Repository (1 source) Sulfonamides (Antibiotic); Translations: [SULFA (SULFONAMIDE ANTIBIOTICS)] Propensity to adverse reactions to drug (disorder) 12-26-19 [facility] Repository Medications Current Medications Medication Drug [...] Problem Classification Problem Date Documented Date Episodic/Chronic Essential hypertension (2 sources) Essential (primary) hypertension; [...] Classification Problem Date Documented Da te Episodic/Chronic Cardiac dysrhythmias (2 sources) Palpitations; Translations: [Palpitations] Onset: 09-17-2023 Episodic E Codes: Cut/pierceb (1 source) Contact with [...] 04-05-2022 Episodic Other aftercare (1 source) 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; Translations: [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] Onset: 04-09-2022 Episodic Other bone disease and musculoskeletal deformities (1 source) Other specified disorders of bone density and structure, unspecified site; Translations: [OTH D/O BONE DEN STRUCT UNS SITE] Onset: 12-11-2021 Episodic Other lower respiratory disease (2 sources) Shortness of breath; Translations: [Shortness of breath] Onset: 09-17-2023 Episodic Other screening for suspected conditions (not [...] Name Value Interpretation Reference Range Facility 36on 01-19-2024 36 Pt called back and w as informed by Marii [facility] 36on 2024 36 Stress test results From: Chris Garcia MD Sent: 01/14/2024 1:24 AM EDT To: Lakisha Castillo MA Subject: RE: Scan Her stress test was normal. Follow-up in the next 6 months. ----- Message ----- Left message to call us back [facility] 36on 11-06-2023 36 Regarding echo resul t from 10/21/2023: MD Lakisha London MA Her echo was ok, I want her to get a stress test (dx shortness of breath), if she cannot do treadmill then [employer] nuclear. Spoke with patient and made her aware. She agreed to treadmill stress test. Order faxed to [facility]. [facility] Office Visiton 09-17-2023 Follow-up visit [id number] Teodora Daily 1950 F Date Provider Department Center 09/17/2023 [facility]RIS GARCIA BH CARD [facility] Family History Problem Relation Age of Onset Other Mother Hypertrophic cardiomyopathy Sister Stroke Sister Other Sister Hypertrophic cardiomyopathy Brother Family Status - Relation Status Age at Mother Sister Brother Level of Service:55025 MD OFFICE/OUTPATIENT ESTABLISHED MOD MDM 30 MIN Normal [facility] FREE T3on 07-24-2022 FREE T3 2.66 pg/mlL Normal 2.18-3.98 [facility] Comment on above: Performed By: #### T SH, FT3 #### [facility] [address] [address] [address] Adolph Clinton FREE T4on 07-24-2022 Free T4 [Mass/Vol] 0.85 ng/dL Normal 0.76-1.46 [facility] Comment on above: Performed By: #### F T4 #### [facility] [address] [place] [address] Dr. Adolph Clinton TSHon 07-24-2022 TSH 2.124 uIU/mL Normal 0.358-3.[address] [facility] Comment on above: Performed By: #### T SH, FT3 #### [facility] [address] [address] [address] Adloph Clinton XR FINGER MIN 2 VIEWSon 03-21 [...] JESUS FELIZ Date: 2022-04-05 19:19 Normal [facility] COVID Quick Testingon 2021 Result Negative [employer] Other Quick Fluon 02-08-2022 FLUAV Ab CF (S) [Titer] Negative [employer] Other FLUBV Ab CF (S) [Titer] Negative [facility] Other MG MAMM SCREEN 3D SHARAD CADon 12-07-2021 MG MAMM SCREEN 3D SHARAD CAD Patient: TEODORA DAILY Exam Date: 12/07/2021 : 1950 Gender:F Ordering : DR GERA GALEANO M.D. Admission #: [id number] Family : TEODORACECE GUAJARDO DBelkis Order #: [id number] CLICK HERE TO VIEW EXAM RADIOLOGY REPORT [...] uterine cancer at age 58. LOCATION: [facility] BREAST COMPOSITION: Scattered areas fibroglandular density. [...] Salguero M.D. on 12/07/2021 at 12:13 Normal [facility] XR DEXA BONE DENSITYon 12-07 [...] BRYAN SALGUERO Date: 2021-12-07 15:10 Normal [facility] MRI CARDIAC W WO CONTRASTon 10-16-2021 MRI CARDIAC W WO CONTRAST [facility] Department of Radiology [address] [place] [id number] ===== Patient Name: TEODORA DAILY : 1950 Sex: F Age: Race: White Pt. Location: 30 Patient Status: D Ordered Date: 09/25/2021 8:10:00 AM Completed Date: 10/16/2021 12:33 PM Requesting Provider: CHRIS GARCIA V Attending Provider: Report Copy To: Signs & Symptoms: I51.7 Cardiomegaly I10 History: [place], L hip replacement Comments: Exam: MRI CARDIAC [...] 2. Electronically signed: Kane Solomon. Transcribed by: [email or web address], User Resident: Electronically Signed by: KANE SOLOMON @ 10/18/2021 02:11 PM Normal [facility] CREATININEon 09-07-2021 Creatinine [Mass/Vol] 0.77 mg/dL Normal 0.55-1.02 [facility] Comment on above: Performed By: #### C IDALIA #### [facility] [address] [place] [address] Dr. Adolph Clinton EGFR-AF TRINIDADIAN >60 Normal >=60 [facility] Comment on above: Performed By: #### C IDALIA #### [facility] [address] [place] [address] Dr. Adolph Clinton EGFR-NON AF TRINIDADIAN >60 Normal >=60 [facility] Comment on above: Performed By: #### C IDALIA #### [facility] [address] [place] [address] HEAD WO W CONon 2 CT HEAD WO W CON EXAMINATION: CT HEAD WO W CON HISTORY: Transient cerebral ischemia COMPARISON: None. TECHNIQUE: Multiple computed tomograms of the head were obtained with and without intravenous contrast enhancement. 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 The vasculature about the augustine of Martin appears grossly intact. IMPRESSION: There [...] KAILEE GARCIA Date: 2021-09-07 13:44 Normal [facility] ECHOCARDIO M/2D COMPLETEon 0 09-05-2021 ECHOCARDIO M/2D COMPLETE Patient: TEODORA DAILY Exam Date: 09/05/2021 : 1950 Gender:F Ordering : DR GERA GALEANO M.D. Admission #: [id number] Family : Order #: [id number] CLICK HERE TO VIEW EXAM ECHOCARDIOGRAM REPORT [...] Area(A4C): 12.70 cm2 Left Atrium Systolic Volume(A2C): 90977 mm3 Left Atrium Systolic Volume(A4C): 11193 mm3 Mitral Valve MV E to A [...] M.D. on 09/05/2021 at 20:08 Normal [facility] Q - DEJUAN SCREEN IFA W/RFL TIT ER IFAon 05-10-2021 DEJUAN SCREEN, IFA Negative Normal NEGATIVE [facility] [employer] Comment on above: Order Comment: [facility] performed at: [facility], [address] [place] [address], [address] [place] [address], [phone], [employer] Repairer: Pedro Asencio MD [facility] Date/Time: [facility] [...] AC-0: Negative International Consensus on DEJUAN Patterns (https://doi.org/10.1515/lmlk-8957-3727) For additional information, please refer to http://education.[employer]om[employer].Adomik/faq/YHH401 (This link is being provided for informational/ educational purposes only.) Performed By: #### 7 832X, 249X #### [facility] Default [address] [facility] [place] [address] Q - SJOGREN'S ABS (SS-A,SS-B )on 05-10-2021 SJOGREN'S ANTIBODY (SS-A) <1.0 NEG Normal <1.0 NEG [facility] [employer] Comment on above: Order Comment: [facility] performed at: [facility], [address] [facility], [address] [place] [address], [address] [place] [address], [employer] Repairer: Pedro Asencio MD [facility] Date/Time: [facility] Results Received Date/Time: [facility] Reported Date/Time: Performed By: #### 7 832X, 249X #### [facility] Default [address] [place] [address] SJOGREN'S ANTIBODY (SS-B) <1.0 NEG Normal <1.0 NEG [facility] [employer] Comment on above: Order Comment: [facility] performed at: [employer] [facility], [facility] [facility], [address] [place] [address], [address] [place] [address], [employer] Repairer: Pedro Asencio MD [facility] Date/Time: [facility] Results Received Date/Time: [facility] Reported Date/Time: Performed By: #### 7 832X, 249X #### [facility] [address] [place] [address] Q - DEJUAN CASC NODS1gx 022 CHROMATIN (NUCLEOSOMAL) ANTIBODY <1.0 NEG Normal <1.0 NEG [facility] [employer] Comment on above: Order Comment: [facility] performed at: [employer] [facility], [address] [place] [address], [address] [place] [address], [address] [place] [address], [employer] Repairer: Pedro Asencio MD [facility] Date/Time: [id number] [facility] Results Received Date/Time: [facility] Reported Date/Time: [...] 12% Sjogren's syndrome and 8% polymyositis. Ribonucleoprotein ([employer] TECHNICAL LEAD SENIOR DEVELOPER) antibodies are to [employer] TECHNICAL LEAD SENIOR DEVELOPER A and/or [employer] TECHNICAL LEAD SENIOR DEVELOPER 68kD proteins; antibodies to one or both are present in >80% MCTD, 22% to 48% SLE, 14% systemic sclerosis, 12% Sjogren's and 8% polymyositis. Sm/[employer] TECHNICAL LEAD SENIOR DEVELOPER antibodies are directed to epitopes formed in a complex of Sm and [employer] TECHNICAL LEAD SENIOR DEVELOPER; antibodies to the Sm/[employer] TECHNICAL LEAD SENIOR DEVELOPER complex are present in 54% to 94% MCTD, 30% SLE, 4% systemic sclerosis, and 9% Sjogren's and polymyositis. Sm antibody is present in 20% to 30% SLE, 8% MCTD, 10% polymyositis, 0% systemic sclerosis and 4% Sjogren's syndrome. Double stranded DNA, Chromatin, Ribonucleoprotein, Sm/CENT[employer] TECHNICAL LEAD SENIOR DEVELOPER complex and Sm antibodies are present in <2% of normal blood donors. The [facility] does not rule out autoimmune disease characterized by other autoantibody specificities such as rheumatoid arthritis, autoimmune hepatitis, primary biliary cholangitis, autoimmune thyroiditis, [place]'s disease, pernicious anemia, autoimmune neuropathies, vasculitis, celiac disease and bullous disease. Please contact your local [facility] laboratory if you are interested in additional testing. Performed By: #### % IN7, %, #### [facility] [address] [place] [address] DNA (DS) ANTIBODY <1 Normal [facility] [employer] Comment on above: Order Comment: [facility] Testing performed at: [facility], [facility], [address] [place] [address], [address] [place] [address], [place], [address], [employer] Repairer: Pedro Asencio MD [facility] Collection Date/Time: [facility] Results Received Date/Time: [facility] Reported Date/Time: Result Comment: IU/m L Interpretation < or = 4 Negative 5-9 Indeterminate > or = 10 Positive Performed By: #### % IN7, % #### [facility] Default [address] [place] [address] [employer] TECHNICAL LEAD SENIOR DEVELOPER ANTIBODY 1.0 POS Abnormal <1.0 NEG [facility] Specialist Comment on above: Order Comment: [facility] performed at: [facility], [address] [place] [address], [address] [place] [address], [address] [place] [address], [employer] Repairer: Pedro Asencio MD [facility] Date/Time: [facility] Results Received Date/Time: [facility] Reported Date/Time: Performed By: #### % IN7, % #### [facility] [address] [place] [address] SM ANTIBODY <1.0 NEG Normal <1.0 NEG [facility] Specialist Comment on above: Order Comment: [facility] performed at: [facility], [address] [place] [address], [address] [place] [address], [address] [place] [address], [employer] Repairer: Pedro Asencio MD [facility] Date/Time: [facility] Results Received Date/Time: [facility] Reported Date/Time: Performed By: #### % IN7, % #### [facility] [address] [place] [address] SM/CENTURA TECHNICAL LEAD SENIOR DEVELOPER ANTIBODY <1.0 NEG Normal <1.0 NEG [facility] Specialist Comment on above: Order Comment: [facility] performed at: [facility], [address] [place] [address], [address] [place] [address], [address] [place] [address], [employer] Repairer: Pedro Asencio MD [facility] Date/Time: [facility] Results Received Date/Time: [facility] Reported Date/Time: Performed By: #### % IN7, % #### [facility] [address] [place] [address] Q - DEJUAN MULTIPLEX W/ REFLEX TO 11 ANTIBODY CASCADEon 05-01-2021 ANACHOICE(R) SCREEN Positive Abnormal NEGATIVE [facility] Comment on above: Order Comment: [facility] performed at: [facility], [address] , [address] [place] [address], [phone], [employer] Repairer: Pedro Asencio MD [facility] Date/Time: [id number] [facility] Results Received Date/Time: [facility] Reported Date/Time: Result Comment: A po sitive DEJUAN, Multiplex reflexes to the 3 Tiered Multiplex 11 Antibody [facility]. Testing in the [facility] stops at the first positive result and does not preclude additional positive results. Further laboratory testing may be considered if clinically indicated. For additional information, please refer to http://education.On2 Technologies/faq/FRO931 (This link is being provided for informational/ educational purposes only.) Performed By: #### % IN7, % #### [facility] [address] [place] [address] Q - CENTURA TECHNICAL LEAD SENIOR DEVELOPER INTERPon 05-01-2021 INTERPRETATION SEE NOTE Normal [facility] Specialist Comment on above: Order Comment: [facility] performed at: [facility], [address] , [address] [place], [address], [employer] Repairer: Pedro Asencio MD [facility] Date/Time: [id number] [facility] Results Received Date/Time: [facility] Reported Date/Time: Result Comment: CENT[employer] TECHNICAL LEAD SENIOR DEVELOPER antibody is found in patients with mixed [...] IN7, % #### [facility] [address] [place] [address] Vital Signs Date Time Vital Sign Value Performing Clinician Facility 02-08-2022 13:05-0400 Body height 158.75 cm Staci Esquivel Other [facility] Other 02-08-2022 13:05-0400 Body mass index (BMI) [Ratio] 33.29 kg/m2 Staci Esquivel Other [facility] Other 02-08-2022 13:05-0400 Body temperature 101 [degF] Staci Esquivel Other [facility] Other 02-08-2022 13:05-0400 Body weight 83.92 kg Staci Esuqivel Other [facility] Other 02-08-2022 13:05-0400 Respiratory rate 18 /min Staci Esquivel Other [facility] Other 02-08-2022 13:05-0400 SaO2% (BldA) [Mass fraction] 95 % Staci Esquivel Other [facility] Other Encounters Encounter Date Encounter Type Care Provider Facility Start: 12-23-2023 End: 12-23-2023 ambulatory TEODORA GUAJARDO Not Available Start: 11-24-2023 End: 11-24-2023 ambulatory LINDSEY H TIMMIS Not Available Start: 09-30-2023 End: 09-30-2023 ambulatory CHET MCLAUGHLIN Not Available Start: 09-17-2023 End: 09-17-2023 ambulatory SKYE B APLING Not Available Start: 09-17-2023 End: 09-17-2023 ambulatory [facility] Start: 08-20-2023 End: 08-20-2023 ambulatory SKYE B APLING Not Available Start: 07-14-2023 End: 07-14-2023 ambulatory EMIGDIO COURTNEY Not Available Start: 06-09-2023 End: 06-09-2023 ambulatory SKYE B APLING Not Available Start: 05-19-2023 End: 05-19-2023 ambulatory LINDSEY H TIMMIS Not Available Start: 03-19-2023 End: 03-19-2023 ambulatory LINDSEY H TIMMIS Not Available Start: 03-18-2023 End: 03-18-2023 ambulatory CELSA BAZANDLESTON Not Available Start: 07-24-2022 End: 07-25-[address] GERA GALEANO Facility:[facility] Start: 06-25-2022 ambulatory OVIDIO LANDRUM Facility:[facility] Start: 04-05-2022 End: 04-05-2022 ambulatory ASHTYN CALERO . Facility:[facility] Start: 02-08-2022 End: 02-08-2022 ambulatory Staci Esquivel Other [facility] Other Start: 02-08-2022 Office outpatient ne w [...] Payer Category Payer Private Health Insurance [id number] 1950 Unknown [id number] 2.16.8 [id number] 1950 Unknown [id number] 2.16.84 0.1.207964.3.579.2.593 1950 Unknown [id number] 2.16.84 0.1.121831.3.579.2.593 1950 Unknown [id number] 2.16.84 0.1.460500.3.579.2.593 1950 Unknown [id number] 2.16.84 0.1.651753.3.579.2.593 1950 Unknown [id number] 2.16.84 0.1.421792.3.579.2.593 1950 Unknown [id number] 2.16.84 0.1.776361.3.579.2.593 1950 Unknown [id number] 2.16.84 0.1.800760.3.579.2.593 1950 Unknown [id number] 2.16.84 0.1.602158.3.579.2.1259 1950 Unknown [id number] 2.16.84 0.1.673628.3.579.2.1259 1950 Unknown [id number] 2.16.84 0.1.533894.3.579.2.1259 1950 Unknown [id number] 2.16.84 0.1.202018.3.579.2.1259 1950 Unknown [id number] 2.16.84 0.1.762272.3.579.2.125 1950 Unknown [id number] 2.16.84 0.1.382736.3.579.2.1259 1950 Unknown [id number] 2.16.84 0.1.394166.3.579.2.1259 1950 Unknown [id number] 2.16.84 0.1.131024.3.579.2.1259 1950 Unknown [id number] 2.16.84 0.1.088350.3.579.2.1259 1950 Unknown [id number] 2.16.84 0.1.646175.3.579.2.125 1950 Unknown [id number] 2.16.84 0.1.140376.3.579.2.125 1950 Unknown [id number] 2.16.840 .1.862090.3.579.2.1259 1950 Unknown [id number] 2.16.840 .1.265680.3.579.2.1259 Social History Date Type Detail Facility Sex Assigned [facility] [employer] Other Progress note 09-17-2023 Note Date & Type Note Facility 09-17-2023 Note [place] [facility] - [facility] Subjective Teodora Daily is a [...] No swelling. Cervical (more content not included)... [facility] Evaluation note 02-08-2022 Note Date & Type [...] no improvement in 2 to 3 days [facility] Other Consultation note 01-31-2022 Note Date & [...] p.r.n. basis at the patient's discretion. [facility] History general Narrative - Reported Note Date & Type Note Facility History general Narrative - Reported Type Medical History osteoporosis Medical History herniated disc Medical History hypertrophic cardiomyopathy Surgical History Hip Replacement 2017 [facility] Other Summary Purpose Family History No Family History Records FoundNo Family History Records FoundNo Family History Records FoundNo Family History Records FoundNo Family History Records Found Advance Directives No Advanced Directives Records FoundNo Advanced Directives Records FoundNo Advanced Directives Records FoundNo Advanced Directives Records FoundNo Advanced Directives Records Found Additional Source Comments INFORMATION SOURCE (unrecogn ized section and content) DATE CREATED AUTHOR 05/13/2021 [facility] dical Specialist DATE CREATED AUTHOR AUTHOR'S ORGANIZ ATION 10/23/2021 [facility] DATE CREATED AUTHOR AUTHOR'S ORGANIZ ATION 08/03/[address] [facility] DATE CREATED AUTHOR AUTHOR'S ORGANIZ ATION 12/24/2023 [facility] dical Specialists [facility] DATE CREATED AUTHOR AUTHOR'S ORGANIZ ATION 01/20/[address] [facility] REASON FOR VISIT (unrecogniz ed section [...] BE BASED ON THE PRIMARY CLINICAL RECORDS. [facility] [employer]. provides no warranty or guarantee of the accuracy or completeness of information in this document.
== END 2024-01-22 12:33 | disposition home or self-care (01) ==
LOC: MRI 12:32
PROVIDERS: PCP Internal Medicine; Visit Provider Nurse Practitioner
DX: M47.816 Spondylosis without myelopathy or radiculopathy, lumbar region (principal); M51.369 Other intervertebral disc degeneration, lumbar region without mention of lumbar back pain or lower extremity pain
CPT/HCPCS: 72148

== ENCOUNTER 2024-02-10 09:49 | Outpatient (OUT) | payer MEDICARE, SELFPAY ==
--- NOTE | 2024-02-10 | CONS_ITS ---
CONSULTATION DATE: 02/10/2024 TO: Sven Peng M.D. HISTORY: Patient returns today complaining of 3-7/10 pain in her lower back, occurring bilaterally, worse on the right than the left side, described as a sharp, deep aching pain, which increased with activities such as standing, walking and performing transitioning maneuvers. She feels most comfortable in the semi-recumbent position. Denies any change in bowel and bladder habits or new sensorimotor changes in the lower extremities. ANGELLA on today?s visit is 22%. CURRENT MEDICATION: Includes Flexeril 10 mg b.i.d which offers her no relief. EXAMINATION: Notable for patient having no clinical radiculopathy or myelopathy involving the lower extremities. Patient did have severe pain with lumbar facet joint loading maneuvers, most severe at the L4-5 level with associated myofascial spasm of the lumbar paravertebral muscles occurring bilaterally. Patient also had a positive right sided FABERE?s sign suggestive of right side hip joint related pain. IMPRESSION: Our impression is patient with chronic pain secondary to right hip joint related pain clinically, lumbosacral spondylosis associated with pain clinically, right greater than left side, most significant at the L4-5 level and associated with myofascial spasm with myalgia. RECOMMENDATIONS: I recommend this patient undergo a radiofrequency ablation of the L4-5 level under fluoroscopic guidance. We will use three needles to denervate that joint. Also, proceed with right sided hip films with weight bearing view. I have discontinued Flexeril secondary to ineffectiveness. Will trial her on baclofen 10 mg pills, half a pill to one pill to b.i.d. as tolerated. As part of providing excellent, safe, comprehensive care, the following was completed at our patient's visit: 1. A medication reconciliation and review to ensure accurate knowledge of current/active medications, including asking our patients to inform us about any rxiu-jpb-hclztdh medications or herbal remedies/nutritional supplements/alternative remedies. 2. A review to specifically ensure our patients have had annual screening for: elevated body mass index (BMI, see intake chart for exact total), tobacco use, screening for depression, and screening for unhealthy alcohol use. When screening is concerning, patients are provided with education and the specific recommendation to discuss the concerning health issue and treatment options with their primary care provider. DANICA
--- OUTSIDE RECORDS SUMMARY | 2024-02-10 10:10 | XMS_ITS | CCD ---
Author Organization [facility] Care Team Providers Care Chemical Compounder Name Role Phone UNKNOWN, PHYSICIAN Referring Unavailable UNKNOWN, PHYSICIAN Primary Care Unavailable CHRIS GARCIA V Admitting Unavailable CHRIS GARCIA V Attending Unavailable Staci Esquivel Unavailable ABDIAS ., ASHTYN Admitting Unavailable ABDIAS ., ASHTYN Attending Unavailable ANNA .THUY Consulting Unavaileugene PENG, DR BOSS Primary Care Unavailable JESUS FELIZ Consulting Unavailable DEVIN ., DR DARYL Juarez Attending Unavailable DEVIN ., DR DARYL Juarez Admitting Unavailable FROYLAN, DR BOSS Primary Care Unavailable PENG, DR BOSS Consulting Unavailable ABELJULIO SHETTY Consulting Unavailable LAKSHMIPATHY, NARENDRANATH Admitting Unava ilable PENG, DR BOSS Primary Care Unavailable LAKSHMIPATHY, NARENDRANATH Attending Unava ilable FROYLAN, DR BOSS Admitting Unavailable PENG, DR BOSS Primary Care Unavailable PENG, DR BOSS Consulting Unavailable FROYLAN, DR BOSS Attending Unavailable ZIEBER, DR BRYAN Castellon Consulting Unavailable FROYLAN, DR BOSS Attending Unavailable FROYLAN, DR BOSS Admitting Unavailable FROYLAN, DR BOSS Primary Care Unavailable FROYLAN, DR BOSS Consulting Unavailable NEFKAILEE PROCTOR Consulting Unavailable FROYLAN, DR BOSS Attending Unavailable FROYLAN, DR BOSS Admitting Unavailable FROYLAN, DR BOSS Primary Care Unavailable FROYLAN, DR BOSS Consulting Unavailable FROYLAN, DR BOSS Admitting Unavailable MISC, DR BEEBE Consulting Unavailable FROYLAN, DR BOSS Primary Care Unavailable FROYLAN, DR BOSS Attending Unavailable CHRIS GARCIA Attending Unavailable Sven Peng MD Unavailable Sven Peng MD Primary Care Provider GUERITA RAYMUNDO Attending Unavailable SVEN PENG Referring Unavailable SKYE DUKE Attending Unavailable CELSA NEVES Attending Unavailable SKYE DUKE Referring Unavailable JOLEEN COURTNEY Attending Unavailable SKYE DUKE Attending Unavailable GUERITA RAYMUNDO Attending Unavailable SKYE DUKE Referring Unavailable SKYE DUKE Attending Unavailable CHET MCLAUGHLIN Attending Unavailable CHET MCLAUGHLIN Referring Unavailable GUERITA RAYMUNDO Attending Unavailable TEODORA CHADWICK Attending Unavailable SKYE DUKE Attending Unavailable JOLEEN COURTNEY Attending Unavailable AFIA ANTON Attending Unavailable Allergies Allergy Classification Reported Allergen(s) Allergy Type Date of Onset Reaction(s) Facility (9 sources) oxyCODONE Drug Allergy 08-01-19 19 hives, Itching, Rash [employer] [facility] [employer] Other (1 source) Sulfacetamide Drug Allergy neck swelled, hives [facility] [employer] Other (2 sources) oxyCODONE Drug Allergy [facility] Repository (2 sources) Sulfonamides (Antibiotic) Drug allergy (disorder) [facility] Repository (1 source) Sulfonamides (Antibiotic); Translations: [SULFA (SULFONAMIDE ANTIBIOTICS)] Propensity to adverse reactions to drug (disorder) 12-26-19 [facility] Repository (8 sources) HYDROcodone Drug Allergy 08-01-19 19 [facility] Work Phone: (8 sources) Sulfonamides (Antibiotic) Drug Intolerance 08-01-19 19 Anaphylaxis, Hives, Itching, Rash, Shortness of breath, Swelling [facility] Medications Current Medications Medication Drug Class(es) Dates Sig (Normalized) Sig (Original) amoxicillin 875 mg / clavulanate 125 mg oral tablet (1 source) Penicillin-class Antibacterial Start: 02-08-2022 take 1 tablet by mouth every twelve hours Amoxicillin-Pot Clavulanate 875-125 MG 1 tablet Orally every 12 hrs for 10 day(s) Jan, Active ascorbic acid 1000 mg oral tablet (8 sources) Vitamin C Ascorbic Acid (vitamin C) 1000 MG tablet 1 (one) time each day at the same time. Active aspirin 81 mg chewable tablet (9 sources) Platelet Aggregation Inhibitor, Nonsteroidal Anti-inflammatory Drug take 1 tablet by mouth twice daily aspirin 81 MG chewable tablet Chew 1 tablet twice a day by oral route. Active Baby Aspirin Act conchis calcium carbonate 1500 mg oral tablet (8 sources) calcium carbonat e 1500 (600 Ca) MG tablet every 12 (twelve) hours. Active cholecalciferol 0.05 mg oral capsule (8 sources) Vitamin D cholecalciferol (Vitamin D-3) 50 MCG (1999 UT) capsule 1 capsule 1 (one) time each day at the same time. Active cyclobenzaprine hydrochloride 10 mg oral tablet (8 sources) Muscle Relaxant Start: take 1 tablet by mouth at bedtime cyclobenzaprine (Flexeril) 10 MG tablet Take 10 mg by mouth at bedtime 11/13/2023 Active cycloSPORINE (Restasis) 0.05 % ophthalmic emulsion (8 sources) take 1 drop(s) into the eye(s) twice daily cycloSPORINE (Restasis) 0.05 % ophthalmic emulsion instill 1 drop into both eyes twice a day as directed Active fexofenadine (1 source) Histamine-1 Receptor Antagonist Carolin Active fluticasone propionate 0.05 mg/actuat metered dose nasal spray (5 sources) Corticosteroid take 1 spray(s) nasal route once daily fluticasone (Flonase) 50 MCG/ACT nasal spray Administer 1 spray into each nostril Daily Shake gently. Before first use, prime pump. After use, clean tip and replace cap. Active Flonase Active irbesartan 150 mg oral tablet (8 sources) Angiotensin 2 Receptor Everett Start: 11-03-2023 take 1 tablet by mouth once daily irbesartan (Avapro) 150 MG tablet Indications: Primary hypertension (CMS/HCC) TAKE 1 TABLET BY MOUTH EVERY DAY FOR 100 DAYS 90 tablet 4 11/03/2023 Active Irbesartan-hydroCH LOROthiazide (1 source) Irbesartan-hydro CH LOROthiazide Active lifitegrast (1 source) Lymphocyte Function-Associate d Antigen-1 Antagonist Xiidra Active 24 hr metoprolol succinate 25 mg extended release oral tablet (9 sources) beta-Adrenergic Everett Start: 09-09-2022 take 1 tablet by mouth every twenty-four hours in the morning metoprolol succinate XL (Toprol-XL) 25 MG 24 hr tablet Take 1 tablet by mouth in the morning. 09/09/2022 Active Toprol XL Active Multiple Vitamins-Minerals (Centrum Silver) chewable tablet (8 sources) Multiple Vitamins-Minerals (Centrum Silver) chewable tablet every 12 (twelve) hours. Active oxybutynin (1 source) Cholinergic Muscarinic Antagonist Oxybutynin Active PARoxetine hydrochloride 20 mg oral tablet (8 sources) Serotonin Reuptake Inhibitor Start: 023 take 1 tablet by mouth in the morning PARoxetine (Paxil) 20 MG tablet Indications: Current moderate episode of major depressive disorder without prior episode (HCC) (CMS/HCC) Take 1 tablet (20 mg) by mouth in the morning. 100 tablet 3 03/06/2023 Active predniSONE 20 mg oral tablet (1 source) Start: 022 take 1 tablet by mouth every twelve hours predniSONE 20 MG 1 tablet Orally 2 times a day for 5 day(s) Jan, Active tiZANidine (1 source) Central alpha-2 Adrenergic Agonist tiZANidine HCl Activ e vitamin b12 0.1 mg oral tablet (8 sources) Vitamin B12 cyanocobalamin ( Vitamin B-12) 100 MCG tablet Vitamin B12 Active Completed/Discontinued Medications Medication Drug Class(es) Dates Sig (Normalized) Sig (Original) 12 hr fexofenadine hydrochloride 60 mg / pseudoephedrine hydrochloride 120 mg extended release oral tablet (6 sources) alpha-Adrenergic Agonist, Histamine-1 Receptor Antagonist End: take 60-120 mg by mouth every twelve hours as needed fexofenadine-pseudoep hedrine ER (Carolin-D) 60-120 MG 12 hr tablet Take 1 tablet by mouth 2 (two) times a day as needed for allergies. Do not crush, chew, or split. 01/28/2024 Discontinued (Therapy completed) 1 ml methylPREDNISolone acetate 40 mg/ml injection (4 sources) Corticosteroid Start: 4 End: methylPREDNISolone acetate (DEPO-Medrol) injection 40 mg Start: 01-26-2024 End: 01-26-2024 40 mg, Intra-articular, Once PRN Procedure, Starting on Fri01/26/24 at 1044, For 1 dose zinc gluconate 50 mg oral tablet (6 sources) End: 01-28-2024 zinc gluconate 50 MG tablet 1 (one) time each day at the same time. 01/28/2024 Discontinued (Other) Problems Active Problems Problem Classification Problem Date Documented Date Episodic/Chronic Asthma (8 sources) Reactive airway disease; Translations: [Unspecified asthma, uncomplicated] Onset: 1 Resolved: 4 07-14-2023 Chronic Cardiac dysrhythmias (2 sources) Supraventricular tachycardia; Translations: [Supraventricular tachycardia, unspecified (CMS/HCC)] 01-28-2024 Chronic Essential hypertension (10 sources) Essential (primary) hypertension; Translations: [Essential hypertension] Onset: 9 Chronic Genitourinary symptoms and ill-defined conditions (4 sources) Abnormal urine; Translations: [Unspecified abnormal findings in urine] 01-28-2024 Episodic Immunizations and screening for infectious disease (3 sources) Encounter for immunization; Translations: [Patient encounter status] Onset: 2 01-28-2024 Episodic Inflammation; infection of eye (except that caused by tuberculosis or sexually transmitteddisease) (16 sources) Keratoconjunctivitis sicca; Translations: [Keratoconjunctivitis sicca, not specified as Sjogren's, bilateral] Onset: 3 11-10-2022 Chronic Menopausal disorders (12 sources) Other primary ovarian failure; Translations: [Decreased estrogen level] Onset: 2 Chronic Mood disorders (2 sources) Moderate major depression, single episode; Translations: [Major depressive disorder, single episode, moderate] 01-28-2024 Chronic Osteoarthritis (20 sources) Arthritis of right knee; Translations: [Unilateral primary osteoarthritis, right knee] Onset: 1 01-26-2024 Chronic Other and ill-defined heart disease (8 sources) Left ventricular hypertrophy; Translations: [Cardiomegaly] Onset: 2 07-14-2023 Chronic Other circulatory disease (2 sources) Ecchymosis; Translations: [Hemorrhage, not elsewhere classified] 01-28-2024 Episodic Other connective tissue disease (8 sources) History of repair of hip joint; Translations: [Presence of left artificial hip joint] Onset: 4 07-14-2023 Chronic Other diseases of bladder and urethra (8 sources) Overactive bladder; Translations: [Overactive bladder] Onset: 8 11-10-2022 Chronic Other ear and sense organ disorders (8 sources) Chronic tympanitis; Translations: [Chronic myringitis, unspecified ear] Onset: 8 11-10-2022 Chronic Other ear and sense organ disorders (9 sources) Sensorineural hearing loss, bilateral; Translations: [Sensorineural hearing loss, bilateral] Onset: 8 11-10-2022 Chronic Other eye disorders (4 sources) Eyelid retraction left upper eyelid; Translations: [EYELID RETRACTION LEFT UPPER EYELID] Onset: 3 Episodic Other eye disorders (1 source) Eyelid retraction right upper eyelid; Translations: [EYELID RETRACT RT UPPER EYELID] Onset: 3 Episodic Other lower respiratory disease (1 source) Cough; Translations: [Cough] Episodic Other non-traumatic joint disorders (8 sources) Derangement of right shoulder joint; Translations: [Other specific joint derangements of right shoulder, not elsewhere classified] Onset: 0 11-10-2022 Chronic Other non-traumatic joint disorders (2 sources) Pain in right knee; Translations: [Pain in joint, lower leg] 01-26-2024 Episodic Other nutritional; endocrine; and metabolic disorders (8 sources) Obese class I; Translations: [Obesity (BMI 30.0-34.9)] Onset: 3 11-10-2022 Chronic Other nutritional; endocrine; and metabolic disorders (2 sources) Weight increased; Translations: [Abnormal weight gain] 01-28-2024 Episodic Other upper respiratory disease (8 sources) Allergic rhinitis; Translations: [Allergic rhinitis, unspecified] Onset: 8 11-10-2022 Chronic Other upper respiratory infections (1 source) Acute sinusitis, unspecified Episodic Otitis media and related conditions (20 sources) Dysfunction of right eustachian tube; Translations: [Unspecified Eustachian tube disorder, right ear] Onset: 1 Resolved: 4 11-10-2022 Episodic Estela-; endo-; and myocarditis; cardiomyopathy (except that caused by tuberculosis or sexually transmitted disease) (8 sources) Hypertrophic obstructive cardiomyopathy; Translations: [Obstructive hypertrophic cardiomyopathy] Onset: 3 11-10-2022 Chronic Spondylosis; intervertebral disc disorders; other back problems (20 sources) Other spondylosis with radiculopathy, lumbar region; Translations: [Prolapsed lumbar intervertebral disc] Onset: Chronic Systemic lupus erythematosus and connective tissue disorders (8 sources) Sjogren's syndrome; Translations: [Sicca syndrome, unspecified] Onset: 11-10-2022 Chronic Past or Other Problems Problem Classification Problem Date Documented Date Episodic/Chronic Abdominal pain (8 sources) Indigestion; Translations: [Epigastric pain] Onset: 07-13-2018 11-10-2022 Episodic Cardiac dysrhythmias (10 sources) Palpitations; Translations: [Intermittent palpitations] Onset: 02-25-2022 Episodic Diabetes mellitus without complication (8 sources) Impaired glucose tolerance; Translations: [Impaired glucose tolerance (oral)] Onset: 05-11-2018 11-10-2022 Episodic E Codes: Cut/pierceb (1 source) Contact with knife, initial encounter; Translations: [CONTACT WITH KNIFE INITIAL ENC] Onset: 04-09-2022 Episodic Esophageal disorders (8 sources) Gastroesophageal reflux disease; Translations: [Gastro-esophageal reflux disease without esophagitis] Onset: 07-29-2018 Resolved: 07-14-2023 07-14-2023 Chronic Heart valve disorders (4 sources) Cardiac murmur, unspecified; Translations: [CARDIAC MURMUR UNSPECIFIED] Onset: 09-05-2021 Episodic Mood disorders (8 sources) Mood disorders Onset: 07-14-2023 07-14-2023 Open wounds of extremities (4 sources) Laceration without foreign body of left middle finger without damage to nail, initial encounter; Translations: [LAC W/O FB LT MF W/O DMG NAIL INIT] Onset: 04-05-2022 Episodic Other aftercare (1 source) Other mcfp (current) drug therapy; Translations: [OTH SKILLED NURSING CURRENT DRUG THERAPY] Onset: 04-09-2022 Episodic Other bone disease and musculoskeletal deformities (1 source) Other specified disorders of bone density and structure, unspecified site; Translations: [OTH D/O BONE DEN STRUCT UNS SITE] Onset: 12-11-2021 Episodic Other bone disease and musculoskeletal deformities (8 sources) Osteopenia; Translations: [Other specified disorders of bone density and structure, unspecified site] Onset: 04-04-2018 11-10-2022 Episodic Other circulatory disease (8 sources) History of transient ischemic attack; Translations: [Personal history of transient ischemic attack (TIA), and cerebral infarction without residual deficits] Onset: 07-14-2023 07-14-2023 Episodic Other ear and sense organ disorders (8 sources) Bilateral tinnitus; Translations: [Tinnitus, bilateral] Onset: 02-24-2018 11-10-2022 Episodic Other eye disorders (8 sources) Disorder of lacrimal gland; Translations: [Dry eye syndrome of bilateral lacrimal glands] Onset: 11-10-2022 11-10-2022 Episodic Other lower respiratory disease (2 sources) Shortness of breath; Translations: [Shortness of breath] Onset: 09-17-2023 Episodic Other nutritional; endocrine; and metabolic disorders (8 sources) Obesity; Translations: [Obesity, unspecified] Onset: 08-04-2018 Resolved: 11-11-2022 11-11-2022 Chronic Other screening for suspected conditions (not mental disorders or infectious disease) (1 source) Encounter for screening mammogram for malignant neoplasm of breast; Translations: [ENC SCR MAMMO MALIG NEOPLASM BREAST] Onset: 12-11-2021 Episodic Residual codes; unclassified (1 source) Family history of malignant neoplasm of other genital organs; Translations: [FAM HX MALIG NEOPLSM OTH GENIT ORGN] Onset: 12-11-2021 Episodic Residual codes; unclassified (8 sources) Bilateral lower limb edema; Translations: [Localized edema] Onset: 11-10-2022 11-10-2022 Episodic Residual codes; unclassified (8 sources) History of colectomy; Translations: [Acquired absence of other specified parts of digestive tract] Onset: 11-10-2022 11-10-2022 Episodic Screening and history of mental health and substance abuse codes (9 sources) Personal history of nicotine dependence; Translations: [Ex-smoker] Onset: 10-11-2019 11-10-2022 Episodic Spondylosis; intervertebral disc disorders; other back problems (9 sources) Intervertebral disc disorders with radiculopathy, lumbar region; Translations: [Disorder of sacrum] Onset: 02-02-2022 11-10-2022 Episodic Transient cerebral ischemia (12 sources) Transient cerebral ischemic attack, unspecified; Translations: [Transient cerebral ischemia] Onset: 09-07-2021 Resolved: 07-14-2023 Chronic Unclassified (1 source) Cough R05.9 Results Test Name Value Interpretation Reference Range Facility Auditory function testson Right Ear: Mild to moderate sensorineural hearing loss from 500 Hz - 1K Hz. Moderate to severe sensorineural hearing loss above 2K Hz Left Ear: Mild to profound sensorineural hearing loss above 500 Hz. [facility] macro (dipstick) panel (U)on 01-28-2024 Bilirubin, UA Negative Negative - 4(70) +++ mg/dL [facility] Blood, UA Negative Negative - 50 Nas/mcL [facility] Clarity, UA Clear [facility] [employer] re Color, UA Yellow [facility] Color Eight e Glucose, UA Negative Negative - 1999(110) ++++ mg/dL [facility] Interpretation and review of laboratory results Abnormal [facility] [employer] [facility] Ketones, UA Negative Negative - 160(16) ++++ mg/dL [facility] Leukocytes, UA Trace Negative - 500+++ Aisha/mcL [facility] Nitrite, UA Negative Negative - Positive [facility] pH, UA 6.5 5 - 9 [facility] Color Eight e Protein, UA Negative Negative - 1999(20) ++++ mg/dL [facility] Spec Grav, UA 1.005 1 - 1.03 [facility] Urobilinogen, UA 1.0 0.2 - 12 mg/dL [facility] No Panel Informationon 01-25 Skye Duke, MAILE 01/26/2024 11:00 AM L Inj/Asp: R knee on 01/26/2024 10:44 AM Indications: pain Details: 20 G needle, anterolateral approach Medications: 40 mg methylPREDNISolone acetate 40 MG/ML UTILIZING ASEPTIC TECHNIQUE PT GIVEN INJECTION IN RIGHT KNEE, NEUROVASC INTACT S/P INJ, TOLERATED WELL Procedure, treatment alternatives, risks and benefits explained, specific risks discussed. Consent was given by the patient. [facility] [employer] [facility] 36on 01-19-2024 36 Pt called back and w as informed by Marii [facility] 36on 2024 36 Stress test results From: Chris Garcia MD Sent: 01/14/2024 1:24 AM EDT To: Lakisha Castillo MA Subject: RE: Scan Her stress test was normal. Follow-up in the next 6 months. ----- Message ----- Left message to call us back [facility] 36on 11-06-2023 36 Regarding echo resul t from 10/21/2023: MD Lakisha London MA Her echo was ok, I want her to get a stress test (dx shortness of breath), if she cannot do treadmill then lexiscmariano nuclear. Spoke with patient and made her aware. She agreed to treadmill stress test. Order faxed to [facility]. [facility] Office Visiton 09-17-2023 Follow-up visit [id number] Teodora Daily Jessica 1950 F Date Provider Department Center 09/17/2023 367-CHRIS GARCIA [facility] Family History Problem Relation Age of Onset Other Mother Hypertrophic cardiomyopathy Sister Stroke Sister Other Sister Hypertrophic cardiomyopathy Brother Family Status - Relation Status Age at Mother Sister Brother Level of Service:29439 OK OFFICE/OUTPATIENT ESTABLISHED MOD MDM 30 MIN [facility] FREE T3on 07-24-2022 FREE T3 2.66 pg/mlL Normal 2.18-3.[address] [facility] Comment on above: Performed By: #### T SH, FT3 #### [facility] [address] [place] [address] Dr. Adolph Clinton FREE T4on 07-24-2022 Free T4 [Mass/Vol] 0.85 ng/dL Normal 0.76-1.46 [facility] Comment on above: Performed By: #### F T4 #### [facility] [address] [address] [address] Adolph Clinton TSHon 07-24-2022 TSH 2.124 uIU/mL Normal 0.358-3.740 [facility] Comment on above: Performed By: #### T SH, FT3 #### [facility] [address] [place] [address] Dr. Adolph Clinton XR FINGER MIN 2 [...] JESUS FELIZ Date: 2022-04-05 19:19 Normal [facility] COVID Quick Testingon 2021 Result Negative [employer] Other Quick Fluon 02-08-2022 FLUAV Ab CF (S) [Titer] Negative [employer] Other FLUBV Ab CF (S) [Titer] Negative [employer] Other MG MAMM SCREEN 3D SHARAD CADon 12-07-2021 MG MAMM SCREEN 3D SHARAD CAD Patient: TEODORA DAILY Exam Date: 12/07/2021 : 1950 Gender:F Ordering : DR SVEN PENG M.D. Admission #: [id number] Family : DR. TEODORA CHADWICK D.O. Order #: [id number] CLICK HERE TO VIEW EXAM RADIOLOGY REPORT [...] LOCATION: [facility] BREAST COMPOSITION: Scattered areas fibroglandular density. FINDINGS: [...] CONTRASTon 10-16-2021 MRI CARDIAC W WO CONTRAST [facility] Department of Radiology [address] [place] [id number] ===== Patient Name: TEODORA DAILY : [...] 2. Electronically signed: Kane Solomon. Transcribed by: [email or web address], User Resident: Electronically Signed by: KANE SOLOMON @ 10/18/2021 02:11 PM Normal [facility] CREATININEon 09-07-2021 Creatinine [Mass/Vol] 0.77 mg/dL Normal 0.55-1.[address] [facility] Comment on above: Performed By: #### C IDALIA #### [facility] [address] [place], [place] [address] Dr. Adolph Clinton EGFR-AF SOUTH AFRICAN >60 Normal >=60 [facility] Comment on above: Performed By: #### C IDALIA #### [facility] [address] [place], [place] [address] Dr. Adolph Clinton EGFR-NON AF SOUTH AFRICAN >60 Normal >=60 [facility] Comment on above: Performed By: #### C IDALIA #### [facility] [address] [place], [place] [address] HEAD WO W CONon CT HEAD WO W CON EXAMINATION: CT HEAD WO W CON HISTORY: Transient cerebral ischemia COMPARISON: None. TECHNIQUE: Multiple computed tomograms of the head were obtained with and without intravenous contrast enhancement. 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 The vasculature about the [place] appears grossly intact. IMPRESSION: There [...] 09/05/2021 : 1950 Gender:F Ordering : DR SVEN PENG M.D. Admission #: [id number] Family : Order #: [id number] CLICK HERE TO VIEW EXAM ECHOCARDIOGRAM REPORT [...] Area(A4C): 12.70 cm2 Left Atrium Systolic Volume(A2C): 09194 mm3 Left Atrium Systolic Volume(A4C): 60454 mm3 Mitral Valve MV E to A [...] M.D. on 09/05/2021 at 20:08 Normal [facility] Q - DEJUAN SCREEN IFA W/RFL TIT ER IFAon 05-10-2021 DEJUAN SCREEN, IFA Negative Normal NEGATIVE [facility] Specialist Comment on above: Order Comment: [facility] performed at: QPT, [facility], [address] , [address] [place] [address], [id number], Stone Driller: Pedro Asencio MD [facility] Collection Date/Time: [facility] [...] AC-0: Negative International Consensus on DEJUAN Patterns (https://doi.org/10.1515/moim-7286-0484) For additional information, please refer to http://education.[employer]/faq/TLL716 (This link is being provided for informational/ educational purposes only.) Performed By: #### 7 [id number], [id number] #### [facility] Default [address] [place] [address] Q - SJOGREN'S ABS (SS-A,SS-B )on 05-10-2021 SJOGREN'S ANTIBODY (SS-A) <1.0 NEG Normal <1.[address] [facility] Cyber Security Architect Comment on above: Order Comment: [facility] performed at: [employer] [facility], [address] [place] [address], [address] [place] [address], [address] [place] [address], Stone Driller: Pedro Asencio MD [facility] Collection Date/Time: [facility] Results Received Date/Time: [facility] Reported Date/Time: Performed By: #### 7 832X, 249X #### [facility] Default [address] [place] [address] SJOGREN'S ANTIBODY (SS-B) <1.0 NEG Normal <1.0 NEG [facility] Comment on above: Order Comment: [facility] Testing performed at: [facility] [facility], [address] [facility], [address] [place] [address], [id number], Stone Driller: Pedro Asencio MD [facility] Collection Date/Time: [facility] Results Received Date/Time: [facility] Reported Date/Time: Performed By: #### 7 [id number] #### [facility] Default [address] [place] [address] Q - DEJUAN CASC [id number] CHROMATIN (NUCLEOSOMAL) ANTIBODY <1.0 NEG Normal <1.0 NEG [facility] Specialist Comment on above: Order Comment: [facility] Testing performed at: QPT, [facility], [address] [facility], [address] [facility], [place], [address], Stone Driller: Pedro Asencio MD [facility] Collection Date/Time: [id number] [facility] Results Received Date/Time: [facility] Reported Date/Time: [...] 12% Sjogren's syndrome and 8% polymyositis. Ribonucleoprotein (SERICULTURE TEACHER) antibodies are to SERICULTURE TEACHER A and/or SERICULTURE TEACHER 68kD proteins; antibodies to one or both are present in >80% MCTD, 22% to 48% SLE, 14% systemic sclerosis, 12% Sjogren's and 8% polymyositis. Sm/SERICULTURE TEACHER antibodies are directed to epitopes formed in a complex of Sm and SERICULTURE TEACHER; antibodies to the Sm/SERICULTURE TEACHER complex are present in 54% to 94% MCTD, 30% SLE, 4% systemic sclerosis, and 9% Sjogren's and polymyositis. Sm antibody is present in 20% to 30% SLE, 8% MCTD, 10% polymyositis, 0% systemic sclerosis and 4% Sjogren's syndrome. Double stranded DNA, Chromatin, Ribonucleoprotein, Sm/SERICULTURE TEACHER complex and Sm antibodies are present in <2% of normal blood donors. The [facility] does not rule out autoimmune disease characterized by other autoantibody specificities such as rheumatoid arthritis, autoimmune hepatitis, primary biliary cholangitis, autoimmune thyroiditis, Kendall's disease, pernicious anemia, autoimmune neuropathies, vasculitis, celiac disease and bullous disease. Please contact your local [facility] laboratory if you are interested in additional testing. Performed By: #### % IN7, % #### [facility] Default [address] [place] [address] DNA (DS) ANTIBODY <1 Normal [facility] Comment on above: Order Comment: [facility] Testing performed at: [employer], [employer] [facility], [address] [facility], [address] [place] [address], [address] [place] [address], Stone Driller: Pedro Asencio MD [facility] Collection Date/Time: [facility] Results Received Date/Time: [facility] Reported Date/Time: Result Comment: IU/m L Interpretation < or = 4 Negative 5-9 Indeterminate > or = 10 Positive Performed By: #### % IN, % #### [facility] Default [address] [place] [address] SERICULTURE TEACHER ANTIBODY 1.0 POS Abnormal <1.0 NEG [facility] Comment on above: Order Comment: [facility] Testing performed at: [employer], [employer] [facility], [address] [facility], [address] [place] [address], [address] [place] [address], Stone Driller: Pedro Asencio MD [facility] Collection Date/Time: [facility] Results Received Date/Time: [facility] Reported Date/Time: Performed By: #### % IN, % #### [facility] Default [address] [place] [address] SM ANTIBODY <1.0 NEG Normal <1.0 NEG [facility] Comment on above: Order Comment: [facility] Testing performed at: [employer], [employer] [facility], [address] [facility], [address] [place] [address], [address] [place] [address], Stone Driller: Pedro Asencio MD [facility] Collection Date/Time: [facility] Results Received Date/Time: [facility] Reported Date/Time: Performed By: #### % IN7, % #### [facility] Default [address] [facility] [place] [address] SM/SERICULTURE TEACHER ANTIBODY <1.0 NEG Normal <1.0 NEG [facility] Specialist Comment on above: Order Comment: [facility] Testing performed at: [employer], [employer] [facility], [address] [facility], [address] [place] [address], [address] [place] [address], Stone Driller: Pedro Asencio MD [facility] Collection Date/Time: [facility] Results Received Date/Time: [facility] Reported Date/Time: Performed By: #### % IN7, %, #### [facility] Default [address] [place] [address] Q - DEJUAN MULTIPLEX W/ REFLEX TO 11 ANTIBODY CASCADEon 05-01-2021 ANACHOICE(R) SCREEN Positive Abnormal NEGATIVE [facility] Specialist Comment on above: Order Comment: [facility] Testing performed at: [employer], [employer] [facility], [address] [facility], [address] [place] [address], [address] [place] [address], Stone Driller: Pedro Asencio MD [facility] Collection Date/Time: [facility] Results Received Date/Time: [facility] Reported Date/Time: Result Comment: A po sitive DEJUAN, Multiplex reflexes to the 3 Tiered Multiplex 11 Antibody [facility]. Testing in the [facility] stops at the first positive result and does not preclude additional positive results. Further laboratory testing may be considered if clinically indicated. For additional information, please refer to http://education.[employer]/faq/PPJ432 (This link is being provided for informational/ educational purposes only.) Performed By: #### % IN7, %, #### [facility] Default [address] [place] [address] Q - SERICULTURE TEACHER INTERPon 05-01-2021 INTERPRETATION SEE NOTE Normal [facility] Specialist Comment on above: Order Comment: [facility] Testing performed at: [employer], [employer] [facility], [address] [facility], [address] [place] [address], [address] [place] [address], Stone Driller: Pedro Asencio MD [facility] Collection Date/Time: [facility] Results Received Date/Time: [id number] [facility] Reported Date/Time: Result Comment: SERICULTURE TEACHER antibody is found in patients with mixed [...] Performed By: #### % IN7, %, #### [facility] Laboratory Default [address] [place] [address] Vital Signs Date Time Vital Sign Value Performing Clinician Facility 01-28-2024 13:42-0400 Body height 158.8 cm Joleen Hemmer PA Work Phone: [facility] 01-28-2024 13:42-0400 Body mass index (BMI) [Ratio] 35.53 kg/m2 Joleen Hemmer PA Work Phone: [facility] 01-28-2024 13:42-0400 Body weight 89.54 kg Joleen Hemmer PA Work Phone: [facility] 01-28-2024 13:42-0400 Diastolic blood pressure 72 mm[Hg] Joleen Hemmer PA Work Phone: [facility] 01-28-2024 13:42-0400 Heart rate 73 /min Joleen Hemmer PA Work Phone: [facility] 01-28-2024 13:42-0400 Respiratory rate 16 /min Joleen Hemmer PA Work Phone: [facility] 01-28-2024 13:42-0400 SaO2% (BldA) [Mass fraction] 96 % Joleen Hemmer PA Work Phone: [facility] 01-28-2024 13:42-0400 Systolic blood pressure 124 mm[Hg] Joleen Hemmer PA Work Phone: [facility] 02-08-2022 13:05-0400 Body height 158.75 cm Staci Esquivel Other [facility] Other 02-08-2022 13:05-0400 Body mass index (BMI) [Ratio] 33.29 kg/m2 Staci Esquivel Other [facility] Other 02-08-2022 13:05-0400 Body temperature 101 [degF] Staci Esquivel Other [facility] Other 02-08-2022 13:05-0400 Body weight 83.92 kg Staci Esquivel Other [facility] Other 02-08-2022 13:05-0400 Respiratory rate 18 /min Staci Esquivel Other [facility] Other 02-08-2022 13:05-0400 SaO2% (BldA) [Mass fraction] 95 % Staci Esquivel Other [facility] Other Encounters Encounter Date Encounter Type Care Provider Facility Start: 02-04-2024 End: 02-04-2024 [employer] Afia WeaverStop Being Watched-A Work Phone: [facility] Start: 02-04-2024 End: 02-04-2024 [employer] Afia Bhatia [employer] Work Phone: [facility] Start: 02-04-2024 End: 02-04-2024 Clinical Support Afia Bhatia [employer] Work Phone: [facility] Comment on above: Sensorineural hearin g loss (SNHL) of both ears (Primary Dx); Dysfunction of right eustachian tube Start: 01-28-2024 End: 01-28-2024 Bamboo flowsheet Joleen DALEY Work Phone: [facility] Start: 01-28-2024 End: 01-28-2024 Bamboo flowsheet Joleen DALEY Work Phone: [facility] Start: 01-28-2024 End: 01-28-2024 Office outpatient visit 25 minutes Joleen Courtney PA Work Phone: [facility] Comment on above: Ecchymosis (Primary Dx); Urine abnormality; Encounter for immunization; Abnormal urinalysis; Weight gain; Major depressive disorder, single episode, moderate (HCC) (CMS/HCC); Supraventricular tachycardia, unspecified (CMS/HCC) Start: 01-28-2024 End: 01-28-2024 ambulatory JOLEEN COURTNEY Not Available Start: 01-26-2024 End: 01-26-2024 Bamboo flowsheet Skye Lopez Apling CARBON COATER MACHINE OPERATOR Work Phone: [facility] Start: 01-26-2024 End: 01-26-2024 Bamboo flowsheet Skye B Apling CARBON COATER MACHINE OPERATOR Work Phone: [facility] Start: 01-26-2024 End: 01-26-2024 Office outpatient visit 25 minutes Skye B Apling CARBON COATER MACHINE OPERATOR Work Phone: [facility] Comment on above: Right knee pain, uns pecified chronicity (Primary Dx); Arthritis of right knee Start: 01-26-2024 End: 01-26-2024 ambulatory SKYE B APLING Not Available Start: 12-23-2023 End: 12-23-2023 ambulatory TEODORA CHADWICK Not Available Start: 11-24-2023 End: 11-24-2023 ambulatory GUERITA RAYMUNDO Not Available Start: 09-30-2023 End: 09-30-2023 ambulatory CHET MCLAUGHLIN Not Available Start: 09-17-2023 End: 09-17-2023 ambulatory SKYE B APLING Not Available Start: 09-17-2023 End: 09-17-2023 ambulatory [facility] Start: 08-20-2023 End: 08-20-2023 ambulatory SKYE B APLING Not Available Start: 07-14-2023 End: 07-14-2023 ambulatory JOLEEN COURTNEY Not Available Start: 06-09-2023 End: 06-09-2023 ambulatory SKYE B APLING Not Available Start: 05-19-2023 End: 05-19-2023 ambulatory GUERITA Epperson TIMMIS Not Available Start: 03-19-2023 End: 03-19-2023 ambulatory GUERITA H TIMMIS Not Available Start: 03-18-2023 End: 03-18-2023 ambulatory CELSA NEVES Not Available Start: 07-24-2022 End: 07-25-[address] SVEN PENG Facility:[facility] Start: 06-25-2022 ambulatory OVIDIO LANDRUM Facility:[facility] Start: 04-05-2022 End: 04-05-2022 ambulatory ASHTYN ABDIAS . Facility:[facility] Start: 02-08-2022 End: 02-08-2022 ambulatory Staci Esquivel Other [facility] Other Start: 02-08-2022 Office outpatient ne w 20 minutes Staci Esquivel [facility] [place] Start: 01-31-2022 End: 02-01-[address] DARYL BELTRAN . Facility:[facility] Start: 12-07-2021 End: 12-08-[address] SVEN PENG Facility:[facility] Start: 10-16-2021 End: 10-17-2021 ambulatory PHYSICIAN UNKNOWN Facility:[facility] Start: 09-07-2021 End: 09-08-[address] SVEN PENG Facility:[facility] Start: 09-05-2021 End: 09-06-[address] SVEN PENG Facility:[facility] Procedures Date Procedure Procedure Detail Performing Clinician Start: 02-04-2024 AUDITORY FUNCTION TESTS Afia Anton CCC-A Work Phone: Start: 01-28-2024 Urnls dip stick/tablet rgnt non-auto w/o micrscp Joleen Courtney PA Work Phone: Start: 01-26-2024 Arthrocentesis aspir&/inj major jt/bursa w/o Skye Duke CARBON COATER MACHINE OPERATOR Work Phone: Start: 10-20-2019 End: 07-14-2023 H/O: artificial joint History of artificial joint Skye Duke CARBON COATER MACHINE OPERATOR Work Phone: Plan of Treatment Date Care Activity Detail Author Start: 12-30-2024 End: 12-30-2024 Patient encounter procedure 12/30/2024 11:00 AM EDT Office Visit [facility] [address] [place] [phone] Teodora Chadwick DO [address] [place] [address] [facility] Start: 12-22-2024 Medicare Annual Wellness (AWV) Medicare Annual Wellness (AWV) [facility] Start: 03-02-2024 End: 03-02-2024 Patient encounter procedure 03/02/2024 11:15 AM EST Office Visit [facility] [address] [place] [id number] Annette Bright MD [address] [place], [place] [id number] [facility] Start: 02-11-2024 End: 02-11-2024 Patient encounter procedure 02/11/2024 11:20 AM EDT Office Visit [facility] [address] [place] [address] Guerita Raymundo MD [address] [place] [address] [facility] Start: 02-04-2024 End: 02-04-2024 Clinical Support [facility] Comment on above: Arrived Start: 01-28-2024 End: 01-28-2024 Patient encounter procedure 01/28/2024 1:30 PM EDT Office Visit [facility] [address] [place] [address] Joleen Courtney PA [address] [place] [address] Arrived [facility] Comment on above: Arrived Start: 01-26-2024 End: 01-26-2024 Patient encounter procedure 01/26/2024 10:45 AM EDT Office Visit [facility] [address] [place] [id number] Skye Duke NP [address] [place] [address] Arrived [facility] Comment on above: Arrived Start: 12-21-2023 Influenza vaccination Influenza Vacc ine (#1) [facility] URINARY TRACT INFECTION (HTRX) URINARY TRACT INFECTION (HTRX) Lab Routine Urine abnormality Abnormal urinalysis Ordered: 01/28/2024 [facility] Work Phone: Comment on above: Ordered: 01/28/2024 Immunizations Immunization Date Immunization Notes Care Provider Fa cility 01-28-2024 Influenza, High-dose Seasonal, Quadrivalent, Preservative Free Joleen Courtney PA Work Phone: [facility] 02-05-2023 Influenza, Seasonal, Quadrivalent, Adjuvanted Joleen Courtney PA Work Phone: [facility] 02-05-2023 influenza virus vacc ine, unspecified formulation Skye Duke CARBON COATER MACHINE OPERATOR Work Phone: [facility] 04-05-2022 diphtheria, tetanus toxoids and pertussis vaccine Skye Duke CARBON COATER MACHINE OPERATOR Work Phone: [facility] 03-25-2022 influenza, high dose seasonal, preservative-free Skye Duke CARBON COATER MACHINE OPERATOR Work Phone: [facility] 01-25-2021 Influenza, High-dose Seasonal, Quadrivalent, Preservative Free Skye Duke CARBON COATER MACHINE OPERATOR Work Phone: [facility] 02-25-2020 Influenza, Seasonal, Quadrivalent, Adjuvanted Skye Duke CARBON COATER MACHINE OPERATOR Work Phone: [facility] 10-11-2019 pneumococcal polysaccharide vaccine, 23 valent Skye Duke CARBON COATER MACHINE OPERATOR Work Phone: [facility] 06-06-2019 zoster vaccine yesenia Duke CARBON COATER MACHINE OPERATOR Work Phone: [facility] 01-28-2019 influenza, high dose seasonal, preservative-free Skye Duke CARBON COATER MACHINE OPERATOR Work Phone: [facility] 02-13-2018 influenza, high dose seasonal, preservative-free Skye Duke CARBON COATER MACHINE OPERATOR Work Phone: [facility] 01-08-2018 pneumococcal conjuga te vaccine, 13 valent Skye Duke CARBON COATER MACHINE OPERATOR Work Phone: [facility] 02-12-2017 Influenza, High-dose Seasonal, Quadrivalent, Preservative Free Skye Duke CARBON COATER MACHINE OPERATOR Work Phone: [facility] 01-27-2002 zoster vaccine, live Skye garcia CARBON COATER MACHINE OPERATOR Work Phone: [facility] Healthcare Payers Date Payer Category Payer Medicare HUMANA MEDICARE ADVANTAGE HU[employer]NA MEDICARE [id number] 2020-Present [id number] [place] [id number] 2020 Medicare (Managed Care) HUMANA M EDICARE ADVANTAGE [id number] 5 1959 Private Health Insurance [id number] 1948 Unknown [id number] 2.16.840.1.635814.3.579 .2.647 1948 Unknown [id number] 2.16.840.1.001196.3.579 .2.593 1948 Unknown [id number] 2.16.840.1.638093.3.579 .2.593 1948 Unknown [id number] 2.16.840.1.731684.3.579 .2.593 1948 Unknown [id number] 2.16.840.1.717230.3.579 .2.593 1948 Unknown [id number] 2.16.840.1.240776.3.579 .2.593 1948 Unknown [id number] 2.16.840.1.824816.3.579 .2.593 1948 Unknown [id number] 2.16.840.1.726483.3.579 .2.593 1948 Unknown [id number] 2.16.840.1.035476.3.579 .2.125 1948 Unknown [id number] 2.16.840.1.113354.3.579 .2.125 1948 Unknown [id number] 2.16.840.1.236158.3.579 .2.125 1948 Unknown [id number] 2.16.840.1.534566.3.579 .2.125 1948 Unknown [id number] 2.16.840.1.891626.3.579 .2.1259 1948 Unknown [id number] 2.16.840.1.599642.3.579 .2.125 1948 Unknown [id number] 2.16.840.1.384725.3.579 .2.125 1948 Unknown [id number] 2.16.840.1.840912.3.579 .2.125 1948 Unknown [id number] 2.16.840.1.966662.3.579 .2.125 1948 Unknown [id number] 2.16.840.1.570861.3.579 .2.125 1948 Unknown [id number] 2.16.840.1.114294.3.579 .2.1259 1948 Unknown [id number] 2.16.840.1.506131.3.579 .2.9 1948 Unknown [id number] 2.16.840.1.778411.3.579 .2.9 1948 Unknown [id number] 2.16.840.1.729205.3.579 .2.1258 1948 Unknown [id number] 2.16.840.1.732917.3.579 .2.9 1948 Unknown [id number] 2.16.840.1.388981.3.579 .2.1259 Social History Date Type Detail Facility Start: 05-18-2023 End: 07-14-2023 Sex Assigned At [facility] Start: 12-03-2022 Tobacco smoking stat [facility] Ex-smoker [facility] Start: 11-19-1966 End: 04-21-2007 History of tobacco use Current smoker [facility] Start: 11-19-1966 End: 04-21-2007 History of tobacco use Cigarette Smoker [facility] Start: 12-03-2022 End: 07-14-2023 Cigarettes smoked current (pack per day) - Reported 1 [facility] Start: 12-03-2022 Tobacco use and exposure Smokeless t obacco non-user [facility] Start: 01-26-2024 End: 01-28-2024 Alcoholic beverage intake Current drinker of alcohol (finding) [facility] How often to you hav e a drink containing alcohol? 2-3 time sa week [facility] How many standard dr inks containing alcohol do you have on a typical day? 1 or 2 [facility] How often do you hav e 6 or more drinks on 1 occasion? Never [facility] Start: 07-14-2023 Alcohol Comment 3-4 glasses of wine per week Caffeine intake : 2-3 cups per day [facility] Start: 1950 Sex assigned at Female [facility] Start: 09-06-2022 Gender identity Identifies as female gender (finding) [facility] Start: 09-06-2022 Sexual orientation Heterosexual (fin ding) [facility] History of Present illness Narrative 10--2024 Afia Anton CCC-A - 02/04/2024 8:30 AM EDT Note Date & Type Note Facility 02-04-2024 History of Presen t illness Narrative History: Pt is s/p tube removal + paper patch. She did not keep her follow up appointment. Pt saw Dr Raymundo 11/24/23 for right ETD. Pt also reported periodic right hearing loss and ear fullness. She hears better when she pops her ears. She has not popped her ears today. History is positive for bilateral sensorineural hearing loss. Last audio at this office was 02/18/18. Otoscopic Exam: Ear canal clear and TM intact AU Pure Tone Audiometry Right Ear: Mild to moderate sensorineural hearing loss from 500 Hz - 1K Hz. Moderate to severe sensorineural hearing loss above 2K Hz Left Ear: Mild to profound sensorineural hearing loss above 500 Hz. Speech Audiometry Right SRT = 40 dB and word discrimination score at 75 dBHL (masked) = 88% Left SRT = 45 dB and word discrimination score at 70 dBHL (masked) = 88% Tympanometry Right Ear: Type C tympanogram Left Ear: Type Ad tympanogram documented in this encounter [facility] History of Present illness Narrative 01-28-2024 THUY Brown - 01/28/2024 1:30 PM EDT Note Date & Type Note Facility 01-28-2024 History of Presen t illness Narrative Images from the original note were not included. HPI UTI Additional comments: States that over the past 3 - 6 months she has flecks in her urine and was told years ago if that happens it means you are getting an infection so would like to have her urine checked. Denies any other symptoms. lab work Additional comments: Would like to have her thyroid labs checked - states she has fatigue, hair loss, dry skin, constipation. Last edited by Katheryn Smith LPN on 01/28/2024 1:45 PM. Subjective Patient ID: Teodora Daily is a 74 y.o. female who presents for bruise. Teodora is present today for evaluation of bruise on abdomen. States she has a bruise on her right side of abdomen that has been there for about 6 weeks. 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 get special order jeweler in color then goes back to darker color. Denies pain or tenderness. She feels her abdomen is bigger than what it was. Does not exercise due to back pain, also needs a knee replacement. Did get a shot in her right knee which has helped, so was able to walk some. Eating habits have not changed. Current Outpatient Medications on File Prior to Visit Medication Sig Dispense Refill Ascorbic Acid (vitamin C) 1000 MG tablet 1 (one) time each day at the same time. aspirin 81 MG chewable tablet Chew 1 tablet twice a day by oral route. calcium carbonate 1500 (600 Ca) MG tablet every 12 (twelve) hours. cholecalciferol (Vitamin D-3) 50 MCG (2000 UT) capsule 1 capsule 1 (one) time each day at the same time. cyanocobalamin (Vitamin B-12) 100 MCG tablet Vitamin B12 cyclobenzaprine (Flexeril) 10 MG tablet Take 10 mg by mouth at bedtime cycloSPORINE (Restasis) 0.05 % ophthalmic emulsion instill 1 drop into both eyes twice a day as directed fluticasone (Flonase) 50 MCG/ACT nasal spray Administer 1 spray into each nostril Daily Shake gently. Before first use, prime pump. After use, clean tip and replace cap. irbesartan (Avapro) 150 MG tablet TAKE 1 TABLET BY MOUTH EVERY DAY FOR 100 DAYS 90 tablet 4 metoprolol succinate XL (Toprol-XL) 25 MG 24 hr tablet Take 1 tablet by mouth in the morning. Multiple Vitamins-Minerals (Centrum Silver) chewable tablet every 12 (twelve) hours. PARoxetine (Paxil) 20 MG tablet Take 1 tablet (20 mg) by mouth in the morning. 100 tablet 3 [DISCONTINUED] fexofenadine-pseudoephedrine ER (Carolin-D) 60-120 MG 12 hr tablet Take 1 tablet by mouth 2 (two) times a day as needed for allergies. Do not crush, chew, or split. [DISCONTINUED] zinc gluconate 50 MG tablet 1 (one) time each day at the same time. No current facility-administered medications on file prior to visit. I have reviewed and reconciled the history and medication list with the patient today. Allergies Allergen Reactions Sulfa Antibiotics Anaphylaxis, Hives, Itching, Rash, Shortness of breath and Swelling Other Reaction(s): hives, swelling Itching, throat swelling, hives Hydrocodone Can take as needed, gets itching if takes as prescribed on hourly basis Oxycodone Hives, Itching and Rash Other Reaction(s): itching, hives Itching, hives Social History Tobacco Use Smoking status: Former Current packs/day: 0.00 Average packs/day: 1 pack/day for 40.4 years (40.4 ttl pk-yrs) Types: Cigarettes Start date: 11/19/1966 Quit date: 04/21/2007 Years since quittin.7 Smokeless tobacco: Never Vaping Use Vaping status: Never Used Substance Use Topics Alcohol use: Yes Alcohol/week: 2.0 standard drinks of alcohol Types: 2 Standard drinks or equivalent per week Comment: 3-4 glasses of wine per week Caffeine intake : 2-3 cups per day Drug use: Never Family History Problem Relation Name Age of Onset Alzheimer's disease Mother Mariah Hypertension Mother Mariah Pernicious anemia Father Alcohol abuse Father Suicidality Paternal Grandfather Heart disease Sibling Heart failure Sister Mey Put[place] Heart failure Brother Suleman Hypertension Sister Mey, Indy Migraines Sister Indy Stroke Sister Mey Past Medical History: Diagnosis Date Allergic rhinitis Arthritis Bladder spasms Bunion Chronic lumbar pain Chronic myringitis of right ear COVID-19 06/2021 Ear problems Eustachian tube dysfunction, right Hammer toe HL (hearing loss) Lumbosacral disc disease Osteopenia Tendinitis of knee TIA (transient ischemic attack) 11/10/2022 Tinnitus Past Surgical History: Procedure Laterality Date ADENOIDECTOMY BLADDER SUSPENSION 2013 BLEPHAROPTOSIS REPAIR 2019 Eye lid surgery BUNIONECTOMY CATARACT EXTRACTION 01/2019 COLECTOMY 2008 COLONOSCOPY 2013 FOOT SURGERY multiple foot sx, [id number] HYSTERECTOMY 1998 IR ABLATION BONE 12/15/2018 LT RFA T12-L3 IR INJECTION NERVE BLOCK 04/09/2018 L2-L5 nerve blocks IR INJECTION NERVE BLOCK Left 07/21/2018 T12-L3 nerve blocks LUMBAR EPIDURAL INJECTION 04/03/2021 OTHER SURGICAL HISTORY [address] [employer], [place] PARTIAL HIP REPLACEMENT 08/2018 TOE SURGERY TONSILLECTOMY TOTAL HIP ARTHROPLASTY Left 09/07/2018 Dr Neves TYMPANOSTOMY TUBE PLACEMENT Visit Vitals BP 124/72 Pulse 73 Resp 16 Ht 5' 2.5 Wt 197 lb 6.4 oz SpO2 96% BMI 35.53 kg/m Smoking Status Former BSA 1.99 m Review of Systems Constitutional: Positive for fatigue and unexpected weight change (Gain). Negative for chills and fever. Respiratory: Negative for cough, shortness of breath and wheezing. Cardiovascular: Negative for chest pain, palpitations and leg swelling. Gastrointestinal: Positive for constipation. Negative for abdominal pain, diarrhea, nausea and vomiting. Genitourinary: Positive for frequency (Not new or different). Skin: Positive for color change. Negative for rash. Dry skin, hair loss Objective Physical Exam Constitutional: General: She is not in acute distress. Appearance: Normal appearance. She is well-developed. HENT: Head: Normocephalic and atraumatic. Eyes: General: No scleral icterus. Conjunctiva/sclera: Conjunctivae normal. Cardiovascular: Rate and Rhythm: Normal rate and regular rhythm. Heart sounds: Normal heart sounds. No murmur heard. Pulmonary: Effort: Pulmonary effort is normal. No respiratory distress. Breath sounds: Normal breath sounds. No wheezing, rhonchi or rales. Abdominal: General: Abdomen is protuberant. Tenderness: There is no abdominal tenderness. Comments: Irregular shaped lightly erythematous with light yellow central portion area of skin, right lower abdomen, not abnormally warm to touch, not raised, no induration, See Photo. Skin: General: Skin is warm and dry. Neurological: General: No focal deficit present. Mental Status: She is alert and oriented to person, place, and time. Psychiatric: Mood and Affect: Mood normal. Behavior: Behavior normal. Office Visit on 01/28/2024 Component Date Value Ref Range Status Color, UA 01/28/2024 Yellow Final Clarity, UA 01/28/2024 Clear Final Glucose, UA 01/28/2024 Negative Negative - 2000(110) ++++ mg/dL Final Bilirubin, UA 01/28/2024 Negative Negative - 4(70) +++ mg/dL Final Ketones, UA 01/28/2024 Negative Negative - 160(16) ++++ mg/dL Final Spec Grav, UA 01/28/2024 1.005 1 - 1.03 Final Blood, UA 01/28/2024 Negative Negative - 50 Nas/mcL Final pH, UA 01/28/2024 6.5 5 - 9 Final Protein, UA 01/28/2024 Negative Negative - 2000(20) ++++ mg/dL Final Urobilinogen, UA 01/28/2024 1.0 0.2 - 12 mg/dL Final Leukocytes, UA 01/28/2024 Trace Negative - 500+++ Aisha/mcL Final Nitrite, UA 01/28/2024 Negative Negative - Positive Final Assessment/Plan Diagnoses and all orders for this visit: Ecchymosis Discussed several potential causes of a repeated bruise in one area, without determining etiology. No signs of anemia on labs in August of this year. She does take Aspirin. Advised the yellow discoloration may be a sign that it is improving. Reviewed normal process for ecchymosis resolution. Encouraged her to show Dr. Bright the area if it persists until her appt in her office. Urine abnormality - POCT Urinalysis dipstick - URINARY TRACT INFECTION (HTRX) UA results reviewed with pt. Encounter for immunization - Influenza, high-dose seasonal, quadrivalent, PF (LIA846) (Fluzone High Dose [place] 0.7mL dose) Provided pt with Flu shot today, she tolerated this well. Abnormal urinalysis - URINARY TRACT INFECTION (HTRX) Due to trace leuks in UA, will send for culture at this time. Stay hydrated. Weight gain Advised pt that her thyroid was checked last year and was WNL. Offered to recheck, pt is agreeable to holding off at this time. Advised it may in part be due to not being able to be as active, while still consuming the same diet as she had been. Encouraged her to increase activity as tolerated. Follow up in about 24 weeks (around 07/14/2024) for Medicare Wellness Visit. documented in this encounter [facility] History of Present illness Narrative 01-26-2024 Skye Duke NP - 01/26/2024 10:45 AM EDT Note Date & Type Note Facility 01-26-2024 History of Presen t illness Narrative Associated Order(s): L Inj/Asp: R knee Post-Procedure Diagnose(s): Arthritis of right knee Subjective Patient ID: Teodora Daily is a 74 y.o. female. RT Knee *Wants inj Last saw Craen 09/17/23 for the RT knee and was referred to [facility] for eval for visco supplementation, she went to pain management for her back and she also got gel injection in the knee (09/23/23) with relief for a few weeks, it has worn off. Pain has been worsening since the gel injection wore off. No injury. She notes she does not want to continue with the gel injections at this time. 5 months s/p depo medrol injection RT knee (08/20/23) she notes it worked for a good week and then the pain is coming back and getting worse again. Wears brace prn, mainly when she has to drive long periods of time. Pain has been getting worse since 2023. NKI. Pain anterior and medial knee. Lately pain has also been radiating laterally and posteriorly. Constant medial pain with activities. Pain at rest 3/10. Pain with activities 8/10 with stairs and driving. Pain worse with prolonged driving, she will get a sharp pain anterior medial knee when driving. Admits N/T occas down her lateral knee/lower leg and her 3rd 4th and 5th toes. Notes she sat for an hour on a still doing her makeup and got N/T. Admits constant swelling laterally. Admits cracking/popping. Admits occas locking/catching that is rare. Denies giving out but has the sensation that it will. Admits excedrine prn and flexeril per PCP for her back, sees pain management at [facility]. Admits ice prn. Also uses heat and voltaren occas with some relief, but gets the most relief with ice. Good rom, pain with ROM. Denies waking at night. TX: XR [facility] 08/20/23, heat, aleve, IBU, depo injection 04/23/22, depo injection 10/29/22, MRI [facility] 12/17/22, Depo injx 01/07/23 and 03/18/23, brace, depo medrol injection 08/20/23 Objective Ortho Exam Knee Musculoskeletal Exam Palpation Right Crepitus: patellofemoral Tenderness: present Medial joint line: moderate Range of Motion Right Active extension: 0 Active flexion: 115 L Inj/Asp: R knee on 01/26/2024 10:44 AM Indications: pain Details: 20 G needle, anterolateral approach Medications: 40 mg methylPREDNISolone acetate 40 MG/ML UTILIZING ASEPTIC TECHNIQUE PT GIVEN INJECTION IN RIGHT KNEE, NEUROVASC INTACT S/P INJ, TOLERATED WELL Procedure, treatment alternatives, risks and benefits explained, specific risks discussed. Consent was given by the patient. Assessment/Plan Encounter Diagnoses: ICD-10-CM 1. Right knee pain, unspecified chronicity M25.561 2. Arthritis of right knee M17.11 She notes she is not interested in getting her knee replaced at this time, she prefers an injection. Discussion of options, pt notes he would like an injection, side effects of bleeding and infection discussed, would like to proceed with the injection, using aspectic technique 40 mg of depo medrol was injected into the right lateral knee, pt tolerated well, bandaid applied, may do activities as tolerated, f/u prn documented in this encounter [facility] Progress note 09-17-2023 Note Date & Type Note Facility 09-17-2023 Note [place] Cardiology - [facility] Subjective Teodora Daily is a [...] No swelling. Cervical (more content not included)... [facility] Evaluation note 02-08-2022 Note Date & [...] no improvement in 2 to 3 days [facility] Other Consultation note 01-31-2022 Note Date & [...] discretion. [facility] Evaluation note Note Date & Type Note Facility Evaluation note Diagnosis Right knee pain, unspecified chronicity- Primary Arthritis of right knee documented in this encounter [facility] Evaluation note Note Date & Type Note Facility Evaluation note Diagnosis Ecchymosis- Primary Other specified circulatory system disorders Urine abnormality Other nonspecific finding on examination of urine Encounter for immunization Abnormal urinalysis Other nonspecific finding on examination of urine Weight gain Other symptoms concerning nutrition, metabolism, and development Major depressive disorder, single episode, moderate (HCC) (CMS/HCC) Major depressive disorder, single episode, moderate Supraventricular tachycardia, unspecified (CMS/HCC) documented in this encounter [facility] Evaluation note Note Date & Type Note Facility Evaluation note Diagnosis Sensorineural hearing loss (SNHL) of both ears- Primary Dysfunction of right eustachian tube documented in this encounter [facility] History general Narrative - Reported Note Date & Type Note Facility History general Narrative - Reported Type Medical History osteoporosis Medical History herniated disc Medical History hypertrophic cardiomyopathy Surgical History Hip Replacement 2017 [facility] Other Summary Purpose Family History No Family History Records FoundNo Family History Records FoundNo Family History Records FoundNo Family History Records FoundNo Family History Records Found Advance Directives No Advanced Directives Records FoundNo Advanced Directives Records FoundNo Advanced Directives Records FoundNo Advanced Directives Records FoundNo Advanced Directives Records Found Reason for Referral Specialty Diagnoses / Procedures Referred By Contac t Referred To Contact Orthopaedic Surgery Diagnoses Arthritis of right knee Procedures L Inj/Asp: R knee Skye Duke NP [address] [place] [address] Referral ID Status Reason Start Date Expiration Date V isits Requested Visits Authorized [id number] Authorized 01/26/2024 07/24/2024 1 1 Additional Source Comments INFORMATION SOURCE (unrecogn ized section and content) DATE CREATED AUTHOR 05/13/2021 [facility] dical Specialist DATE CREATED AUTHOR AUTHOR'S ORGANIZ ATION 10/23/2021 [facility] DATE CREATED AUTHOR AUTHOR'S ORGANIZ ATION 08/03/2022 [facility] DATE CREATED AUTHOR AUTHOR'S ORGANIZ ATION 01/20/2024 [facility] DATE CREATED AUTHOR AUTHOR'S ORGANIZ ATION 02/06/2024 [facility] d[facility] Specialists EPIC REASON FOR VISIT (unrecogniz ed section and content) Reason Comments Pain Reason Comments UTI States that over the past 3 - 6 months she has flecks in her urine and was told years ago if that happens it means you are getting an infection so would like to have her urine checked. Denies any other symptoms. lab work Would like to have h er thyroid labs checked - states she has fatigue, hair loss, dry skin, constipation. Care Teams (unrecognized sec tion and content) Chemical Compounder Relationship Specialty Start Date End Date Sven Peng MD [address] [place] [address] PCP - [employer] 04/21/20 Sven Peng MD [address] [place] [address] PCP - General Internal Medicine 08/27/22 Chemical Compounder Relationship Specialty Start Date End Date Sven Peng MD [address] [place] [address] PCP - [employer] 04/21/20 Sven Peng MD [address] [place] [address] PCP - General Internal Medicine 08/27/22 Chemical Compounder Relationship Specialty Start Date End Date Sven Peng MD [address] [place] [address] PCP - [employer] 04/21/20 Sven Peng MD [address] [place] [address] PCP - General Internal Medicine 08/27/22 Chemical Compounder Relationship Specialty Start Date End Date Sven Peng MD [address] [place] [address] PCP - [employer] 04/21/20 Sven Peng MD [address] [place], [place] [id number] PCP - General Internal Medicine 08/27/22 FOR RECORDS PERTAINING TO PATIENTS WHO ARE [...] BE BASED ON THE PRIMARY CLINICAL RECORDS. [employer] provides no warranty or guarantee of the accuracy or completeness of information in this document.
== END 2024-02-10 09:50 | disposition home or self-care (01) ==
LOC: PM 09:50
PROVIDERS: PCP Internal Medicine; Visit Provider Nurse Practitioner
DX: M25.551 Pain in right hip (principal); M47.816 Spondylosis without myelopathy or radiculopathy, lumbar region; M62.838 Other muscle spasm
CPT/HCPCS: G0463

== ENCOUNTER 2024-02-11 12:19 | Outpatient (OUT) | payer MEDICARE, SELFPAY ==
--- OUTSIDE RECORDS SUMMARY | 2024-02-11 12:23 | XMS_ITS | CCD ---
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 Name Role Phone UNKNOWN, PHYSICIAN Referring Unavailable [...] Unavailable PENG, DR BOSS Primary Care Unavailable FROYLAN, DR [...] Care Unavailable FROYLAN, DR BOSS Consulting Unavailable FRYOLAN, DR BOSS Admitting Unavailable MISC, DR BEEBE [...] Drug Allergy 08-01-19 19 hives, Itching, Rash [facility] [employer] Other (1 source) Sulfacetamide Drug Allergy neck swelled, hives [facility] [employer] Other (2 sources) oxyCODONE Drug Allergy [facility] (2 sources) Sulfonamides (Antibiotic) Drug allergy (disorder) [facility] (1 source) Sulfonamides (Antibiotic); Translations: [SULFA (SULFONAMIDE ANTIBIOTICS)] Propensity to adverse reactions to drug (disorder) 12-26-19 [facility] Repository (8 sources) HYDROcodone Drug Allergy [...] group home (current) drug therapy; Translations: [OTH HALFWAY CURRENT DRUG THERAPY] Onset: 04-09-2022 Episodic Other [...] profound sensorineural hearing loss above 500 Hz. [facility] Urinalysis macro (dipstick) panel (U)on 01-28-2024 Bilirubin, UA Negative Negative - 4(70) +++ mg/dL [facility] Blood, UA Negative Negative - 50 Nas/mcL [facility] Clarity, UA Clear [facility] Ha[facility] re Color, UA Yellow [facility] Glucose, UA Negative Negative - 1999(110) ++++ mg/dL [facility] Interpretation and review of laboratory results Abnormal [facility] re Ketones, UA Negative Negative - 160(16) ++++ mg/dL [facility] Leukocytes, UA Trace Negative - 500+++ Aisha/mcL [facility] Nitrite, UA Negative Negative - Positive [facility] pH, UA 6.5 5 - 9 [facility] Protein, UA Negative Negative - 1999(20) ++++ mg/dL [facility] Spec Grav, UA 1.005 1 - 1.03 [facility] Urobilinogen, UA 1.0 0.2 - 12 mg/dL [facility] No Panel Informationon 01-25 Skye [...] discussed. Consent was given by the patient. [facility] [employer] [facility] 36on 01-19-2024 36 Pt called back and w as informed by Marii [facility] 36on 2024 36 Stress test results From: Chris Garcia MD Sent: 01/14/2024 1:24 AM EDT To: Lakisha Castillo MA Subject: RE: Scan Her stress test was normal. Follow-up in the next 6 months. ----- Message ----- Left message to call us back [facility] 36on 11-06-2023 36 Regarding echo resul t from 10/21/2023: MD Lakisha London MA Her echo was ok, I want her to get a stress test (dx shortness of breath), if she cannot do treadmill then lexiscmariano nuclear. Spoke with patient and made her aware. She agreed to treadmill stress test. Order faxed to [facility]. [facility] Office Visiton 09-17-2023 Follow-up visit [id number] Teodora Daily Jessica 1950 F Date Provider Department Center 09/17/2023 367-CHRIS GARCIA [facility] Family History Problem Relation Age of Onset Other Mother Hypertrophic cardiomyopathy Sister Stroke Sister Other Sister Hypertrophic cardiomyopathy Brother Family Status - Relation Status Age at Mother Sister Brother Level of Service:[id number] ID OFFICE/OUTPATIENT ESTABLISHED MOD MDM 30 MIN [facility] FREE T3on 07-24-2022 FREE T3 2.66 pg/mlL Normal 2.18-3.98 [facility] Comment on above: Performed By: #### T SH, FT3 #### [facility] [address] [place] [address] Dr. Adolph Clinton FREE T4on 07-24-2022 Free T4 [Mass/Vol] 0.85 ng/dL Normal 0.76-1.46 [facility] Comment on above: Performed By: #### F T4 #### [facility] [address] [address] [address] Adolph Clinton TSHon 07-24-2022 TSH 2.124 uIU/mL Normal 0.358-3.740 [facility] Comment on above: Performed By: #### T SH, FT3 #### [facility] [address] [place] [address] Dr. Adolph Clinton XR FINGER MIN 2 [...] JESUS FELIZ Date: 2022-04-05 19:19 Normal [facility] COVID Quick Testingon 2021 Result Negative [employer] Other Quick Fluon 02-08-2022 FLUAV Ab CF (S) [Titer] Negative [employer] Other FLUBV Ab CF (S) [Titer] Negative [employer] Other MG MAMM SCREEN 3D SHARAD CADon 12-07-2021 MG MAMM SCREEN 3D SHARAD CAD Patient: TEODORA DAILY Exam Date: 12/07/2021 : 1950 Gender:F Ordering : DR SVEN PENG M.D. Admission #: [id number] Family : DR. TEODORA CHADWICK D.O. Order #: [id number] CLICK HERE TO VIEW EXAM RADIOLOGY REPORT [...] uterine cancer at age 58. LOCATION: [facility] BREAST COMPOSITION: Scattered areas fibroglandular density. FINDINGS: [...] Salguero M.D. on 12/07/2021 at 12:13 Normal [facility] XR DEXA BONE DENSITYon 12-07 XR [...] by: BRYAN SALGUERO Date: 2021-12-07 15:10 Normal [facility] MRI CARDIAC W WO CONTRASTon 10-16-2021 MRI CARDIAC W WO CONTRAST [facility] Department of Radiology [address] [place] [id number] ===== Patient Name: TEODORA DAILY : [...] 2. Electronically signed: Kane Solomon. Transcribed by: [email or web address], User Resident: Electronically Signed by: KANE SOLOMON @ 10/18/2021 02:[address] [facility] CREATININEon 09-07-2021 Creatinine [Mass/Vol] 0.77 mg/dL Normal 0.55-1.02 [facility] Comment on above: Performed By: #### C IDALIA #### [facility] [address] [place], [place] [address] Dr. Adolph Clinton EGFR-AF BENINESE >60 Normal >=60 [facility] Comment on above: Performed By: #### C IDALIA #### [facility] [address] [place], [place] [address] Dr. Adolph Clinton EGFR-NON AF BENINESE >60 Normal >=60 [facility] Comment on above: Performed By: #### C IDALIA #### [facility] [address] [place], [place] [address] HEAD WO W CONon CT HEAD WO W CON EXAMINATION: CT HEAD WO W CON HISTORY: Transient cerebral ischemia COMPARISON: None. TECHNIQUE: Multiple computed tomograms of the head were obtained with and without intravenous contrast enhancement. 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 The vasculature about the tetlin of Martin appears grossly intact. IMPRESSION: There [...] by: KAILEE GARCIA Date: 2021-09-07 13:44 Normal [facility] ECHOCARDIO M/2D COMPLETEon 0 09-05-2021 ECHOCARDIO M/2D COMPLETE Patient: TEODORA DAILY Exam Date: 09/05/2021 : 1950 Gender:F Ordering : DR SVEN PENG M.D. Admission #: [id number] Family : Order #: [id number] CLICK HERE TO VIEW EXAM ECHOCARDIOGRAM REPORT [...] Area(A4C): 12.70 cm2 Left Atrium Systolic Volume(A2C): 10881 mm3 Left Atrium Systolic Volume(A4C): 24931 mm3 Mitral Valve MV E to A [...] M.D. on 09/05/2021 at 20:08 Normal [facility] Q - DEJUAN SCREEN IFA W/RFL TIT ER IFAon 05-10-2021 DEJUAN SCREEN, IFA Negative Normal NEGATIVE [facility] Specialist Comment on above: Order Comment: [facility] performed at: QPT, [facility], [address] , [address] [place] [address], [phone], Biomedical Service Engineer: Pedro Asencio MD [facility] Date/Time: [...] AC-0: Negative International Consensus on DEJUAN Patterns (https://doi.org/10.1515/exfh-7101-8556) For additional information, please refer to http://education.Jack in the Box/faq/VLQ377 (This link is being provided for informational/ educational purposes only.) Performed By: #### 7 832X, 249X #### [facility] [address] [place] [address] Q - SJOGREN'S ABS (SS-A,SS-B )on 05-10-2021 SJOGREN'S ANTIBODY (SS-A) <1.0 NEG Normal <1.0 NEG [facility] Comment on above: Order Comment: [facility] performed at: [employer] [facility], [address] [place] [address], [address] [place] [address], [address] [place] [address], Biomedical Service Engineer: Pedro Asencio MD [facility] Date/Time: [facility] Results Received Date/Time: [facility] Reported Date/Time: Performed By: #### 7 832X, 249X #### [facility] [address] [place] [address] SJOGREN'S ANTIBODY (SS-B) <1.0 NEG Normal <1.0 NEG [facility] Comment on above: Order Comment: [facility] performed at: [facility] [employer] [facility], [address] [facility], [address] [place] [address], [phone], Biomedical Service Engineer: Pedro Asencio MD [facility] Date/Time: [facility] Results Received Date/Time: [facility] Reported Date/Time: Performed By: #### 7 832X, 249X #### [facility] [address] [place] [address] Q - DEJUAN CASC [id number] CHROMATIN (NUCLEOSOMAL) ANTIBODY <1.0 NEG Normal <1.0 NEG [facility] Specialist Comment on above: Order Comment: [facility] performed at: QPT, [facility], [address] [facility], [address] [facility], [place], [address], Biomedical Service Engineer: Pedro Asencio MD [facility] Date/Time: [id number] [facility] Results Received Date/Time: [facility] Reported Date/Time: [...] 12% Sjogren's syndrome and 8% polymyositis. Ribonucleoprotein (SHIP MATE) antibodies are to SHIP MATE A and/or SHIP MATE 68kD proteins; antibodies to one or both are present in >80% MCTD, 22% to 48% SLE, 14% systemic sclerosis, 12% Sjogren's and 8% polymyositis. Sm/SHIP MATE antibodies are directed to epitopes formed in a complex of Sm and SHIP MATE; antibodies to the Sm/SHIP MATE complex are present in 54% to 94% MCTD, 30% SLE, 4% systemic sclerosis, and 9% Sjogren's and polymyositis. Sm antibody is present in 20% to 30% SLE, 8% MCTD, 10% polymyositis, 0% systemic sclerosis and 4% Sjogren's syndrome. Double stranded DNA, Chromatin, Ribonucleoprotein, Sm/SHIP MATE complex and Sm antibodies are present in <2% of normal blood donors. The [place] does not rule out autoimmune disease characterized by other autoantibody specificities such as rheumatoid arthritis, autoimmune hepatitis, primary biliary cholangitis, autoimmune thyroiditis, Kendall's disease, pernicious anemia, autoimmune neuropathies, vasculitis, celiac disease and bullous disease. Please contact your local [facility] laboratory if you are interested in additional testing. Performed By: #### % IN7, % #### [facility] [address] [place] [address] DNA (DS) ANTIBODY <1 Normal [facility] Comment on above: Order Comment: [facility] performed at: [facility], [address] [facility], [address] [place] [address], [address] [place] [address], Biomedical Service Engineer: Pedro Asencio MD [facility] Date/Time: [facility] Results Received Date/Time: [facility] Reported Date/Time: Result Comment: IU/m L Interpretation < or = 4 Negative 5-9 Indeterminate > or = 10 Positive Performed By: #### % IN, % #### [facility] [address] [place] [address] SHIP MATE ANTIBODY 1.0 POS Abnormal <1.0 NEG [facility] Comment on above: Order Comment: [facility] performed at: [facility], [address] [facility], [address] [place] [address], [address] [place] [address], Biomedical Service Engineer: Pedro Asencio MD [facility] Date/Time: [facility] Results Received Date/Time: [facility] Reported Date/Time: Performed By: #### % IN, % #### [facility] [address] [place] [address] SM ANTIBODY <1.0 NEG Normal <1.0 NEG [facility] Comment on above: Order Comment: [facility] performed at: [facility], [address] [facility], [address] [place] [address], [address] [place] [address], Biomedical Service Engineer: Pedro Asencio MD [facility] Date/Time: [facility] Results Received Date/Time: [facility] Reported Date/Time: Performed By: #### % IN7, % #### [facility] [address] [place] [address] SM/SHIP MATE ANTIBODY <1.0 NEG Normal <1.0 NEG [facility] Specialist Comment on above: Order Comment: [facility] performed at: [facility], [facility], [address] [facility], [address] [place] [address], [address] [place] [address], Biomedical Service Engineer: Pedro Asencio MD [facility] Date/Time: [facility] Results Received Date/Time: [facility] Reported Date/Time: Performed By: #### % IN7, %, #### [facility] [address] [place] [address] Q - DEJUAN MULTIPLEX W/ REFLEX TO 11 ANTIBODY CASCADEon 05-01-2021 ANACHOICE(R) SCREEN Positive Abnormal NEGATIVE [facility] Specialist Comment on above: Order Comment: [facility] performed at: [facility], [facility], [address] [facility], [address] [place] [address], [address] [place] [address], Biomedical Service Engineer: Pedro Asencio MD [facility] Date/Time: [facility] Results Received Date/Time: [facility] Reported Date/Time: Result Comment: A po sitive DEJUAN, Multiplex reflexes to the 3 Tiered Multiplex 11 Antibody [place]. Testing in the [place] stops at the first positive result and does not preclude additional positive results. Further laboratory testing may be considered if clinically indicated. For additional information, please refer to http://education.Jack in the Box/faq/YTJ329 (This link is being provided for informational/ educational purposes only.) Performed By: #### % IN7, %, #### [facility] [address] [place] [address] Q - SHIP MATE INTERPon 05-01-2021 INTERPRETATION SEE NOTE Normal [facility] Specialist Comment on above: Order Comment: [facility] performed at: [facility], [address] [facility], [address] [place] [address], [address] [place] [address], Biomedical Service Engineer: Pedro Asencio MD [facility] Date/Time: [facility] Results Received Date/Time: [id number] [facility] Reported Date/Time: Result Comment: SHIP MATE antibody is found in patients with mixed [...] Performed By: #### % IN7, %, #### [facility] Default [address] [place] [address] Vital Signs Date Time Vital Sign Value Performing Clinician Facility 01-28-2024 13:42-0400 Body height 158.8 cm Joleen Hemmer PA Work Phone: [facility] 01-28-2024 13:42-0400 Body mass index (BMI) [Ratio] 35.53 kg/m2 Joleen Hemmer PA Work Phone: [facility] 01-28-2024 13:42-0400 Body weight 89.54 kg Joleen Hemmer PA Work Phone: [facility] 01-28-2024 13:42-0400 Diastolic blood pressure 72 mm[Hg] Joleen Hemmer PA Work Phone: [facility] 01-28-2024 13:42-0400 Heart rate 73 /min Joleen Hemmer PA Work Phone: [facility] 01-28-2024 13:42-0400 Respiratory rate 16 /min Joleen Hemmer PA Work Phone: [facility] 01-28-2024 13:42-0400 SaO2% (BldA) [Mass fraction] 96 % Joleen Hemmer PA Work Phone: [facility] 01-28-2024 13:42-0400 Systolic blood pressure 124 mm[Hg] Joleen Hemmer PA Work Phone: [facility] 02-08-2022 13:05-0400 Body height 158.75 cm Staci Esquivel Other [employer] Other 02-08-2022 13:05-0400 Body mass index (BMI) [Ratio] 33.29 kg/m2 Staci Esquivel Other [employer] Other 02-08-2022 13:05-0400 Body temperature 101 [degF] Staci Esquivel Other [employer] Other 02-08-2022 13:05-0400 Body weight 83.92 kg Staci Esquivel Other [employer] Other 02-08-2022 13:05-0400 Respiratory rate 18 /min Staci Esquivel Other [employer] Other 02-08-2022 13:05-0400 SaO2% (BldA) [Mass fraction] 95 % Staci Esquivel Other [employer] Other Encounters Encounter Date Encounter Type Care Provider Facility Start: 02-04-2024 End: 02-04-2024 Bamboo Prova Systemsheet Afia WeaverZi [employer] Work Phone: [facility] Start: 02-04-2024 End: 02-04-2024 [employer]amboo [employer] Systemsheet Afia Bhatia [employer] Work Phone: [facility] Start: 02-04-2024 End: 02-04-2024 Clinical Support Afia Bhatia [employer] Work Phone: [facility] Comment on [...] End: 01-26-2024 Bamboo flowsheet Skye Lopez Apling AMMONIA TECHNICIAN Work Phone: [facility] Start: 01-26-2024 End: 01-26-2024 Bamboo flowsheet Skye B Apling AMMONIA TECHNICIAN Work Phone: [facility] Start: 01-26-2024 End: 01-26-2024 Office outpatient visit 25 minutes Skye B Apling AMMONIA TECHNICIAN Work Phone: [facility] Comment on above: Right knee [...] Not Available Start: 09-17-2023 End: 09-17-2023 ambulatory [facility] Start: 08-20-2023 End: 08-20-2023 ambulatory [...] 02-08-2022 End: 02-08-2022 ambulatory Staci Esquivel Other [employer] Other Start: 02-08-2022 Office outpatient ne w 20 minutes Staci Esquivel [facility] [place] Start: 01-31-2022 End: 02-01-[address] DARYL BELTRAN . Facility:[facility] Start: 12-07-2021 End: 12-08-[address] SVEN PENG Facility:[facility] Start: 10-16-2021 End: 10-17-2021 ambulatory PHYSICIAN UNKNOWN Facility:[facility] Start: 09-07-2021 End: 09-08-[address] SVEN PENG Facility:[facility] Start: 09-05-2021 End: 09-06-[address] SVEN PENG Facility:[facility] Procedures Date Procedure Procedure Detail Performing Clinician Start: 02-04-2024 AUDITORY FUNCTION TESTS Afia Anton CCC-A Work Phone: Start: 01-28-2024 Urnls dip stick/tablet rgnt non-auto w/o micrscp Joleen Courtney PA Work Phone: Start: 01-26-2024 Arthrocentesis aspir&/inj major jt/bursa w/o Skye Duke AMMONIA TECHNICIAN Work Phone: Start: 10-20-2019 End: 07-14-2023 H/O: artificial joint History of artificial joint Skye Duke AMMONIA TECHNICIAN Work Phone: Plan of Treatment Date Care Activity Detail Author Start: 12-30-2024 End: 12-30-2024 Patient encounter procedure 12/30/2024 11:00 AM EDT Office Visit [facility] [address] [place] [phone] Teodora Chadwick DO [address] [place] [address] [facility] Start: 12-22-2024 Medicare Annual Wellness (AWV) Medicare Annual Wellness (AWV) [facility] Start: 03-02-2024 End: 03-02-2024 Patient encounter procedure 03/02/2024 11:15 AM EST Office Visit [facility] [address] [place] [id number] Annette Bright MD [address] [place], [place] [id number] [facility] Start: 02-11-2024 End: 02-11-2024 Patient encounter procedure 02/11/2024 11:20 AM EDT Office Visit [facility] [address] [place] [address] Guerita Raymundo MD [address] [place] [address] [facility] Start: 02-04-2024 End: 02-04-2024 Clinical Support [facility] Comment on above: Arrived Start: 01-28-2024 End: 01-28-2024 Patient encounter procedure 01/28/2024 1:30 PM EDT Office Visit [facility] [address] [place] [address] Joleen Courtney PA [address] [place] [address] Arrived [facility] Comment on above: Arrived Start: 01-26-2024 End: 01-26-2024 Patient encounter procedure 01/26/2024 10:45 AM EDT Office Visit [facility] [address] [place] [id number] Skye Duke NP [address] [place] [address] Arrived [facility] Comment on above: Arrived Start: 12-21-2023 Influenza vaccination Influenza Vacc ine (#1) [facility] URINARY TRACT INFECTION (HTRX) URINARY TRACT INFECTION (HTRX) Lab Routine Urine abnormality Abnormal urinalysis Ordered: 01/28/2024 [facility] Work Phone: Comment on above: Ordered: 01/28/2024 Immunizations Immunization Date Immunization Notes Care Provider Fa cility 01-28-2024 Influenza, High-dose Seasonal, Quadrivalent, Preservative Free Joleen Courtney PA Work Phone: [facility] 02-05-2023 Influenza, Seasonal, Quadrivalent, Adjuvanted Joleen Courtney PA Work Phone: [facility] 02-05-2023 influenza virus vacc ine, unspecified formulation Skye Duke AMMONIA TECHNICIAN Work Phone: [facility] 04-05-2022 diphtheria, tetanus toxoids and pertussis vaccine Skye Duke AMMONIA TECHNICIAN Work Phone: [facility] 03-25-2022 influenza, high dose seasonal, preservative-free Skye Duke AMMONIA TECHNICIAN Work Phone: [facility] 01-25-2021 Influenza, High-dose Seasonal, Quadrivalent, Preservative Free Skye Duke AMMONIA TECHNICIAN Work Phone: [facility] 02-25-2020 Influenza, Seasonal, Quadrivalent, Adjuvanted Skye Duke AMMONIA TECHNICIAN Work Phone: [facility] 10-11-2019 pneumococcal polysaccharide vaccine, 23 valent Skye Duke AMMONIA TECHNICIAN Work Phone: [facility] 06-06-2019 zoster vaccine yesenia Duke AMMONIA TECHNICIAN Work Phone: [facility] 01-28-2019 influenza, high dose seasonal, preservative-free Skye Duke AMMONIA TECHNICIAN Work Phone: [facility] 02-13-2018 influenza, high dose seasonal, preservative-free Skye Duke AMMONIA TECHNICIAN Work Phone: [facility] 01-08-2018 pneumococcal conjuga te vaccine, 13 valent Skye Duke AMMONIA TECHNICIAN Work Phone: [facility] 02-12-2017 Influenza, High-dose Seasonal, Quadrivalent, Preservative Free Skye Duke AMMONIA TECHNICIAN Work Phone: [facility] 01-27-2002 zoster vaccine, live Skye garcia AMMONIA TECHNICIAN Work Phone: [facility] Healthcare Payers Date Payer Category Payer Medicare [employer] MEDICARE ADVANTAGE [employer] MEDICARE [id number] 2020-Present [address] [place] [id number] 2020 Medicare (Managed Care) HU[employer]NA M EDICARE ADVANTAGE [id number] 5 1959 Private Health Insurance [id number] 1950 Unknown [id number] 2.16.840.1.416912.3.579 .2.647 1950 Unknown [id number] 2.16.840.1.936458.3.579 .2.593 1950 Unknown [id number] 2.16.840.1.673184.3.579 .2.593 1950 Unknown [id number] 2.16.840.1.060957.3.579 .2.593 1950 Unknown [id number] 2.16.840.1.838879.3.579 .2.593 1950 Unknown [id number] 2.16.840.1.718727.3.579 .2.593 1948 Unknown [id number] 2.16.840.1.120581.3.579 .2.593 1950 Unknown [id number] 2.16.840.1.364948.3.579 .2.593 1950 Unknown [id number] 2.16.840.1.842889.3.579 .2.125 1950 Unknown [id number] 2.16.840.1.129606.3.579 .2.125 1948 Unknown [id number] 2.16.840.1.645057.3.579 .2.125 1950 Unknown [id number] 2.16.840.1.362618.3.579 .2.125 1948 Unknown [id number] 2.16.840.1.297871.3.579 .2.1259 1948 Unknown [id number] 2.16.840.1.887871.3.579 .2.125 1948 Unknown [id number] 2.16.840.1.388768.3.579 .2.125 1948 Unknown [id number] 2.16.840.1.271538.3.579 .2.125 1948 Unknown [id number] 2.16.840.1.765304.3.579 .2.125 1948 Unknown [id number] 2.16.840.1.972868.3.579 .2.125 1948 Unknown [id number] 2.16.840.1.435854.3.579 .2.1259 1948 Unknown [id number] 2.16.840.1.051378.3.579 .2.9 1950 Unknown [id number] 2.16.840.1.547777.3.579 .2.9 1950 Unknown [id number] 2.16.840.1.928827.3.579 .2.1258 1948 Unknown [id number] 2.16.840.1.896982.3.579 .2.9 1950 Unknown [id number] 2.16.840.1.916536.3.579 .2.1259 Social History Date Type Detail Facility Start: 05-18-2023 End: 07-14-2023 Sex Assigned At [facility] Start: 12-03-2022 Tobacco smoking stat [facility] Ex-smoker [facility] Start: 11-19-1966 End: [...] weeks. 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 then goes back to darker [...] Onset Alzheimer's disease Mother Mariah Hypertension Mother [place] Pernicious anemia Father Alcohol abuse Father Suicidality [...] COLONOSCOPY 2013 FOOT SURGERY multiple foot sx, [id number] HYSTERECTOMY 1998 IR ABLATION BONE 12/15/2018 LT RFA T12-L3 IR INJECTION NERVE BLOCK 04/09/2018 L2-L5 nerve blocks IR INJECTION NERVE BLOCK Left 07/21/2018 T12-L3 nerve blocks LUMBAR EPIDURAL INJECTION 04/03/2021 OTHER SURGICAL HISTORY 1985 [employer] [place], [place] ID PARTIAL HIP REPLACEMENT 08/2018 TOE SURGERY TONSILLECTOMY [...] immunization - Influenza, high-dose seasonal, quadrivalent, PF (HAR989) (Fluzone High Dose [place] 0.7mL dose) [...] female. RT Knee *Wants inj Last saw Caren 09/17/23 for the RT knee and was referred to [facility] for eval for visco supplementation, she went [...] for her back, sees pain management at [facility]. Admits ice prn. Also uses heat and voltaren occas with some relief, but gets the most relief with ice. Good rom, pain with ROM. Denies waking at night. [place]: XR [facility] 08/20/23, heat, aleve, IBU, depo injection 04/23/22, depo injection 10/29/22, MRI [facility] 12/17/22, Depo injx 01/07/23 and 03/18/23, brace, [...] tolerated, f/u prn documented in this encounter [facility] Progress note 09-17-2023 Note Date & Type Note Facility 09-17-2023 Note [place] [facility] - [facility] Subjective Teodora Daily is a [...] No swelling. Cervical (more content not included)... [facility] Evaluation note 02-08-2022 Note Date & [...] no improvement in 2 to 3 days [employer] Other Consultation note 01-31-2022 Note Date & [...] p.r.n. basis at the patient's discretion. [facility] Evaluation note Note Date & Type Note [...] hypertrophic cardiomyopathy Surgical History Hip Replacement 2017 [employer] Other Summary Purpose Family History No Family [...] Inj/Asp: R knee Skye Duke NP [address] [place] [address] Referral ID Status Reason Start Date Expiration Date V isits Requested Visits Authorized [id number] Authorized 01/26/2024 07/24/2024 1 1 Additional Source Comments INFORMATION SOURCE (unrecogn ized section and content) DATE CREATED AUTHOR 05/13/2021 [facility] Special[facility] DATE CREATED AUTHOR AUTHOR'S ORGANIZ ATION 10/23/2021 [facility] DATE CREATED AUTHOR AUTHOR'S ORGANIZ ATION 08/03/2022 [facility] DATE CREATED AUTHOR AUTHOR'S ORGANIZ ATION 01/20/2024 [facility] DATE CREATED AUTHOR AUTHOR'S ORGANIZ ATION 02/06/2024 [facility]ists EPIC REASON FOR VISIT [...] Care Teams (unrecognized sec tion and content) [employer] Relationship Specialty Start Date End Date Sven Peng MD [address] [place] [address] PCP - [employer] 04/21/20 Sven Peng MD [address] [place] [address] PCP - General Internal Medicine 08/27/22 [employer] Helper Relationship Specialty Start Date End Date Sven Peng MD [address] [place] [address] PCP - [employer] 04/21/20 Sven Peng MD [address] [place] [address] PCP - General Internal Medicine 08/27/22 [employer] Relationship Specialty Start Date End Date Sven Peng MD [address] [place] [address] PCP - [employer] 04/21/20 Sven Peng MD [address] [place] [address] PCP - General Internal Medicine 08/27/22 [employer] Sprayer Helper Relationship Specialty Start Date End Date Sven Peng MD [address] [place] [address] PCP - [employer] 04/21/20 Sven Peng MD [address] [place], [place] [id number] PCP - General Internal Medicine 08/27/22 FOR [...] BE BASED ON THE PRIMARY CLINICAL RECORDS. [employer] provides no warranty or guarantee of the accuracy or completeness of information in this document.
--- NOTE | 2024-02-11 12:31 | XR_ITS ---
The [address] [address] Patient Name: YAO PATEL MRN: [id number] date: 1950 Sex: F Assigned Patient Location: [facility] Current Patient Location: Accession/Order Number: [id number] Exam Date: 02/11/2024 12:25 Report Date: 02/15/2024 07:26 At the request of: OVIDIO LANDRUM Procedure: XR hip RT min 2V PROCEDURE: XR hip RT min 2V HISTORY: Right Hip Pain COMPARISON: None. FINDINGS: BONES:Moderate narrowing of the superior aspect of the hip joint space and degenerative osteophytes along the superior and posterior rim of the acetabulum and small osteophytes along the margin of the femoral head. No fracture or dislocation. SOFT TISSUES:No visible soft tissue swelling. EFFUSION:None visible. OTHER: Negative. XR/XR hip RT min 2V IMPRESSION: 1. No acute bone abnormality. 2. Moderate degenerative joint disease of the right hip. Electronically authenticated by: SEBASTIAN MEEHAN Date: 02/15/2024 07:26
== END 2024-02-11 12:20 | disposition home or self-care (01) ==
LOC: RAD 12:19
PROVIDERS: PCP Internal Medicine; Visit Provider Anesthesiology Pain Medicine
DX: M25.551 Pain in right hip (principal)
CPT/HCPCS: 73502

== ENCOUNTER 2024-02-24 07:26 | Day surgery (SDC) | payer MEDICARE, SELFPAY ==
--- OUTSIDE RECORDS SUMMARY | 2024-02-24 07:28 | XMS_ITS | CCD ---
Author Organization [facility] Care Team Providers Care Circuit Board Assembler Name Role Phone UNKNOWN, PHYSICIAN Referring Unavailable UNKNOWN, PHYSICIAN Primary Care Unavailable MOMERCED, CHRIS V Admitting Unavailable MOUKAYANDYEL CHRIS V Attending Unavailable Staci Esquivel Unavailable ABDIAS ., ASHTYN Admitting Unavailable ABDIAS ., SAHTYN Attending Unavailable ANNA .THUY Consulting Unavaileugene PENG, DR BOSS Primary Care Unavailable JESUS FELIZ Consulting Unavailable DEVIN ., DR DARYL Juarez Attending Unavailable BELTRAN ., DR DARYL Juarez Admitting Unavailable FROYLAN, DR BOSS Primary Care Unavailable PENG, DR BOSS Consulting Unavailable ABELJULIO SHETTY Consulting Unavailable LAKSHMIPATHY, NARENDRANATH Admitting Unava ilable PENG, DR BOSS Primary Care Unavailable LAKSHMIPATHY, NARENDYAKOVATH Attending Unava ilable FROYLAN, DR BOSS Admitting Unavailable PENG, DR BOSS Primary Care Unavailable FROYLAN, DR BOSS Consulting Unavailable FROYLAN, DR BOSS Attending Unavailable ZIEBER, DR SEBASTIAN Castellon Consulting Unavailable FROYLAN, DR BOSS Attending Unavailable FROYLAN, DR BOSS Admitting Unavailable FROYLAN, DR BOSS Primary Care Unavailable FROYLAN, DR BOSS Consulting Unavailable NEFCYKAILEE Consulting Unavailable FROYLAN, DR BOSS Attending Unavailable FROYLAN, DR BOSS Admitting Unavailable FROYLAN, DR BOSS Primary Care Unavailable FROYLAN, DR BOSS Consulting Unavailable FROYLAN, DR BOSS Admitting Unavailable MISC, DR BEEBE Consulting Unavailable FROYLAN, DR BOSS Primary Care Unavailable FROYLAN, DR BOSS Attending Unavailable Sven Peng MD Unavailable Sven Peng MD Primary Care Provider LINDSEY RAYMUNDO Attending Unavailable SVEN PENG Referring Unavailable YAA DUKE Attending Unavailable CELSA NEVES Attending Unavailable YAA DUKE Referring Unavailable JOLEEN COURTNEY Attending Unavailable YAA DUKE Attending Unavailable LINDSEY RAYMUNDO Attending Unavailable YAA DUKE Referring Unavailable YAA DUKE Attending Unavailable CHET MCLAUGHLIN Attending Unavailable CHET MCLAUGHLIN Referring Unavailable LINDSEY RAYMUNDO Attending Unavailable TEODORA CHADWICK Attending Unavailable YAA DUKE Attending Unavailable JOLEEN COURTNEY Attending Unavailable AFIA ANTON Attending Unavailable LINDSEY RAYMUNDO Attending Unavailable CHRIS GARCIA Attending Unavailable Allergies Allergy Classification Reported Allergen(s) Allergy Type Date of Onset Reaction(s) Facility (12 sources) oxyCODONE Drug Allergy 08-01-19 19 hives, Itching, Rash [facility] Other (1 source) Sulfacetamide Drug Allergy neck swelled, hives [facility] Other (2 sources) oxyCODONE Drug Allergy [facility] Rep[facility] (2 sources) Sulfonamides (Antibiotic) Drug allergy (disorder) [facility] (11 sources) HYDROcodone Drug Allergy 08-01-19 19 [facility] Work Phone: (11 sources) Sulfonamides (Antibiotic) Drug Intolerance 08-01-19 19 Anaphylaxis, Hives, Itching, Rash, Shortness of breath, Swelling [facility] (1 source) Sulfonamides (Antibiotic); Translations: [SULFA (SULFONAMIDE ANTIBIOTICS)] Propensity to adverse reactions to drug (disorder) 12-26-19 22 [facility] Repository Medications Current Medications Medication Drug Class(es) Dates Sig (Normalized) Sig (Original) amoxicillin 875 mg / clavulanate 125 mg oral tablet (1 source) Penicillin-class Antibacterial Start: 02-08-2022 take 1 tablet by mouth every twelve hours Amoxicillin-Pot Clavulanate 875-125 MG 1 tablet Orally every 12 hrs for 10 day(s) Jan, Active ascorbic acid 1000 mg oral tablet (11 sources) Vitamin C End: 02-11-2024 Ascorbic Acid (vitamin C) 1000 MG tablet 1 (one) time each day at the same time. 02/11/2024 Discontinued (Therapy completed) aspirin 81 mg chewable tablet (12 sources) Platelet Aggregation Inhibitor, Nonsteroidal Anti-inflammatory Drug take 1 tablet by mouth twice daily aspirin 81 MG chewable tablet Chew 1 tablet twice a day by oral route. Active Baby Aspirin Act conchis calcium carbonate 1500 mg oral tablet (11 sources) End: 02-11-2024 calcium carbonate 1500 (600 Ca) MG tablet every 12 (twelve) hours. 02/11/2024 Discontinued (Therapy completed) cholecalciferol 0.05 mg oral capsule (11 sources) Vitamin D cholecalciferol (Vitamin D-3) 50 MCG (2000 UT) capsule 1 capsule 1 (one) time each day at the same time. Active cyclobenzaprine hydrochloride 10 mg oral tablet (11 sources) Muscle Relaxant Start: 11-13-2023 take 1 tablet by mouth at bedtime cyclobenzaprine (Flexeril) 10 MG tablet Take 10 mg by mouth at bedtime 11/13/2023 Active cycloSPORINE (Restasis) 0.05 % ophthalmic emulsion (11 sources) take 1 drop(s) into the eye(s) twice daily cycloSPORINE (Restasis) 0.05 % ophthalmic emulsion instill 1 drop into both eyes twice a day as directed Active fexofenadine (1 source) Histamine-1 Receptor Antagonist Carolin Active fluticasone propionate 0.05 mg/actuat metered dose nasal spray (8 sources) Corticosteroid take 1 spray(s) nasal route once daily fluticasone (Flonase) 50 MCG/ACT nasal spray Administer 1 spray into each nostril Daily Shake gently. Before first use, prime pump. After use, clean tip and replace cap. Active Flonase Active irbesartan 150 mg oral tablet (11 sources) Angiotensin 2 Receptor Everett Start: 11-03-2023 [...] succinate 25 mg extended release oral tablet (12 sources) beta-Adrenergic Everett Start: 09-09-2022 take 1 tablet by mouth every twenty-four hours in the morning metoprolol succinate XL (Toprol-XL) 25 MG 24 hr tablet Take 1 tablet by mouth in the morning. 09/09/2022 Active Toprol XL Active Multiple Vitamins-Minerals (Centrum Silver) chewable tablet (11 sources) Multiple Vitamins-Minerals (Centrum Silver) chewable tablet every 12 (twelve) hours. Active oxybutynin (1 source) Cholinergic Muscarinic Antagonist Oxybutynin Active PARoxetine hydrochloride 20 mg oral tablet (11 sources) Serotonin Reuptake Inhibitor Start: 023 take [...] e vitamin b12 0.1 mg oral tablet (11 sources) Vitamin B12 cyanocobalamin ( Vitamin B-12) [...] 40 mg/ml injection (4 sources) Corticosteroid Start: End: methylPREDNISolone acetate (DEPO-Medrol) injection 40 mg Start: 01-26-2024 End: 01-26-2024 40 mg, Intra-articular, Once PRN Procedure, Starting on 01/26/24 at 1044, For 1 dose zinc gluconate 50 mg oral tablet (6 sources) End: 01-28-2024 zinc gluconate 50 MG tablet 1 (one) time each day at the same time. 01/28/2024 Discontinued (Other) Problems Active Problems Problem Classification Problem Date Documented Date Episodic/Chronic Asthma (11 sources) Reactive airway disease; Translations: [Unspecified asthma, uncomplicated] Onset: 1 Resolved: 4 07-14-2023 Chronic Cardiac dysrhythmias (2 sources) Supraventricular tachycardia; Translations: [Supraventricular tachycardia, unspecified (CMS/HCC)] 01-28-2024 Chronic Essential hypertension (13 sources) Essential hypertension; Translations: [Essential (primary) hypertension] Onset: 9 11-10-2022 Chronic Genitourinary symptoms and ill-defined conditions (4 sources) Abnormal urine; Translations: [Unspecified abnormal findings in urine] 01-28-2024 Episodic Immunizations and screening for infectious disease (3 sources) Encounter for immunization; Translations: [Patient encounter status] Onset: 2 01-28-2024 Episodic Inflammation; infection of eye (except that caused by tuberculosis or sexually transmitteddisease) (20 sources) Keratoconjunctivitis sicca; Translations: [Keratoconjunctivitis sicca, not specified as Sjogren's, bilateral] Onset: 3 11-10-2022 Chronic Menopausal disorders (15 sources) Other primary ovarian failure; Translations: [Decreased estrogen level] Onset: 2 Chronic Mood disorders (2 sources) Moderate major depression, single episode; Translations: [Major depressive disorder, single episode, moderate] 01-28-2024 Chronic Osteoarthritis (20 sources) Arthritis of right knee; Translations: [Unilateral primary osteoarthritis, right knee] Onset: 1 01-26-2024 Chronic Other and ill-defined heart disease (11 sources) Left ventricular hypertrophy; Translations: [Cardiomegaly] Onset: 2 07-14-2023 Chronic Other circulatory disease (2 sources) Ecchymosis; Translations: [Hemorrhage, not elsewhere classified] 01-28-2024 Episodic Other connective tissue disease (11 sources) History of repair of hip joint; Translations: [Presence of left artificial hip joint] Onset: 4 07-14-2023 Chronic Other diseases of bladder and urethra (11 sources) Overactive bladder; Translations: [Overactive bladder] Onset: 8 11-10-2022 Chronic Other ear and sense organ disorders (11 sources) Chronic tympanitis; Translations: [Chronic myringitis, unspecified ear] Onset: 8 11-10-2022 Chronic Other ear and sense organ disorders (14 sources) Sensorineural hearing loss, bilateral; Translations: [Sensorineural [...] Translations: [Cough] Episodic Other non-traumatic joint disorders (11 sources) Derangement of right shoulder joint; Translations: [Other specific joint derangements of right shoulder, not elsewhere classified] Onset: 0 11-10-2022 Chronic Other non-traumatic joint disorders (2 sources) Pain in right knee; Translations: [Pain in joint, lower leg] 01-26-2024 Episodic Other nutritional; endocrine; and metabolic disorders (11 sources) Obese class I; Translations: [Obesity (BMI 30.0-34.9)] Onset: 3 11-10-2022 Chronic Other nutritional; endocrine; and metabolic disorders (2 sources) Weight increased; Translations: [Abnormal weight gain] 01-28-2024 Episodic Other upper respiratory disease (11 sources) Allergic rhinitis; Translations: [Allergic rhinitis, unspecified] Onset: 8 11-10-2022 Chronic Other upper respiratory infections (1 source) Acute sinusitis, unspecified Episodic Otitis media and related conditions (20 sources) Dysfunction of right eustachian tube; Translations: [Unspecified Eustachian tube disorder, right ear] Onset: 1 Resolved: 4 11-10-2022 Episodic Estela-; endo-; and myocarditis; cardiomyopathy (except that caused by tuberculosis or sexually transmitted disease) (11 sources) Hypertrophic obstructive cardiomyopathy; Translations: [Obstructive hypertrophic cardiomyopathy] Onset: 3 11-10-2022 Chronic Spondylosis; intervertebral disc disorders; other back problems (20 sources) Other spondylosis with radiculopathy, lumbar region; Translations: [Prolapsed lumbar intervertebral disc] Onset: Chronic Systemic lupus erythematosus and connective tissue disorders (11 sources) Sjogren's syndrome; Translations: [Sicca syndrome, unspecified] Onset: 2 11-10-2022 Chronic Past or Other Problems Problem Classification Problem Date Documented Date Episodic/Chronic Abdominal pain (11 sources) Indigestion; Translations: [Epigastric pain] Onset: 07-13-2018 11-10-2022 Episodic Cardiac dysrhythmias (13 sources) Intermittent palpitations; Translations: [Palpitations] Onset: 02-25-2022 11-10-2022 Episodic Diabetes mellitus without complication (11 sources) Impaired glucose tolerance; Translations: [Impaired glucose tolerance (oral)] Onset: 05-11-2018 11-10-2022 Episodic E Codes: Cut/pierceb (1 source) Contact with knife, initial encounter; Translations: [CONTACT WITH KNIFE INITIAL ENC] Onset: 04-09-2022 Episodic Esophageal disorders (11 sources) Gastroesophageal reflux disease; Translations: [Gastro-esophageal reflux disease without esophagitis] Onset: 07-29-2018 Resolved: 07-14-2023 07-14-2023 Chronic Heart valve disorders (4 sources) Cardiac murmur, unspecified; Translations: [CARDIAC MURMUR UNSPECIFIED] Onset: 09-05-2021 Episodic Mood disorders (11 sources) Mood disorders Onset: 07-14-2023 07-14-2023 Open wounds of extremities (4 sources) Laceration without foreign body of left middle finger without damage to nail, initial encounter; Translations: [LAC W/O FB LT MF W/O DMG NAIL INIT] Onset: 04-05-2022 Episodic Other aftercare (1 source) Other mcfp (current) drug therapy; Translations: [OTH FABRICATION AND ASSEMBLY SUPERVISOR CURRENT DRUG THERAPY] Onset: 04-09-2022 Episodic Other bone disease and musculoskeletal deformities (1 source) Other specified disorders of bone density and structure, unspecified site; Translations: [OTH D/O BONE DEN STRUCT UNS SITE] Onset: 12-11-2021 Episodic Other bone disease and musculoskeletal deformities (11 sources) Osteopenia; Translations: [Other specified disorders of bone density and structure, unspecified site] Onset: 04-04-2018 11-10-2022 Episodic Other circulatory disease (11 sources) History of transient ischemic attack; Translations: [Personal history of transient ischemic attack (TIA), and cerebral infarction without residual deficits] Onset: 07-14-2023 07-14-2023 Episodic Other ear and sense organ disorders (11 sources) Bilateral tinnitus; Translations: [Tinnitus, bilateral] Onset: 02-24-2018 11-10-2022 Episodic Other eye disorders (11 sources) Disorder of lacrimal gland; Translations: [Dry eye syndrome of bilateral lacrimal glands] Onset: 11-10-2022 11-10-2022 Episodic Other lower respiratory disease (2 sources) Shortness of breath; Translations: [Shortness of breath] Onset: 09-17-2023 Episodic Other nutritional; endocrine; and metabolic disorders (11 sources) Obesity; Translations: [Obesity, unspecified] Onset: 08-04-2018 [...] ORGN] Onset: 12-11-2021 Episodic Residual codes; unclassified (11 sources) Bilateral lower limb edema; Translations: [Localized edema] Onset: 11-10-2022 11-10-2022 Episodic Residual codes; unclassified (11 sources) History of colectomy; Translations: [Acquired absence of other specified parts of digestive tract] Onset: 11-10-2022 11-10-2022 Episodic Screening and history of mental health and substance abuse codes (12 sources) Personal history of nicotine dependence; Translations: [Ex-smoker] Onset: 10-11-2019 11-10-2022 Episodic Spondylosis; intervertebral disc disorders; other back problems (12 sources) Intervertebral disc disorders with radiculopathy, lumbar region; Translations: [Disorder of sacrum] Onset: 02-02-2022 11-10-2022 Episodic Transient cerebral ischemia (15 sources) Transient cerebral ischemic attack, unspecified; Translations: [...] profound sensorineural hearing loss above 500 Hz. [facility] (dipstick) panel (U)on 01-28-2024 Bilirubin, UA Negative Negative - 4(70) +++ mg/dL [facility] Blood, UA Negative Negative - 50 Nas/mcL [facility] Clarity, UA Clear [facility] [employer] re Color, UA Yellow [facility] [employer] Glucose, UA Negative Negative - 2000(110) ++++ mg/dL [facility] Interpretation and review of laboratory results Abnormal [facility] [employer] Ketones, UA Negative Negative - 160(16) ++++ mg/dL [facility] Leukocytes, UA Trace Negative - 500+++ Aisha/mcL [facility] Nitrite, UA Negative Negative - Positive [facility] pH, UA 6.5 5 - 9 [facility] [employer] Protein, UA Negative Negative - 2000(20) ++++ mg/dL [facility] Spec Grav, UA 1.005 1 - 1.03 [facility] Urobilinogen, UA 1.0 0.2 - 12 mg/dL [facility] No Panel Informationon 01-25 Yaa Duke NP 01/26/2024 11:00 AM L Inj/Asp: R knee on 01/26/2024 10:44 AM Indications: pain Details: 20 G needle, anterolateral approach Medications: 40 mg methylPREDNISolone acetate 40 MG/ML UTILIZING ASEPTIC TECHNIQUE PT GIVEN INJECTION IN RIGHT KNEE, NEUROVASC INTACT S/P INJ, TOLERATED WELL Procedure, treatment alternatives, risks and benefits explained, specific risks discussed. Consent was given by the patient. [facility] [employer] [facility] 36on 01-19-2024 36 Pt called back and w as informed by [facility] 36on 2024 36 Stress test results From: Chris Garcia MD Sent: 01/14/2024 1:24 AM EDT To: Lakisha Castillo MA Subject: RE: Scan Her stress test was normal. Follow-up in the next 6 months. ----- Message ----- Left message to call us back [facility] Telephoneon 2024 Telephone [id number] Teodora Daily Jessica 1950 F Date Provider Department Center 2024 [id number], TANA MATTHEW [facility] Family History Problem Relation Age of Onset Other Mother Hypertrophic cardiomyopathy Sister Stroke Sister Other Sister Hypertrophic cardiomyopathy Brother Family Status - Relation Status Age at Mother Sister Brother [facility] 36on 11-06-2023 36 Regarding echo resul t from 10/21/2023: MD Lakisha London MA Her echo was ok, I want her to get a stress test (dx shortness of breath), if she cannot do treadmill then [employer] nuclear. Spoke with patient and made her aware. She agreed to treadmill stress test. Order faxed to [facility]. [facility] Office Visiton 09-17-2023 Follow-up visit [id number] AbimbolaTeodora Jessica 1950 Date Provider Department Center 09/17/2023 367-CHRIS GARCIA Family History Problem Relation Age of Onset Other Mother Hypertrophic cardiomyopathy Sister Stroke Sister Other Sister Hypertrophic cardiomyopathy Brother Family Status - Relation Status Age at Mother Sister Brother Level of Service:63494 LA OFFICE/OUTPATIENT ESTABLISHED MOD MDM 30 MIN [facility] FREE T3on 07-24-2022 FREE T3 2.66 pg/mlL Normal 2.18-3.98 [facility] Comment on above: Performed By: #### T SH, FT3 #### [facility] [address] [address] [address] Adolph Clinton FREE T4on 07-24-2022 Free T4 [Mass/Vol] 0.85 ng/dL Normal 0.76-1.46 [facility] Comment on above: Performed By: #### F T4 #### [facility] [address] [place], [place] [address] Dr. Adolph Clinton TSHon 07-24-2022 TSH 2.124 uIU/mL Normal 0.358-3.740 [facility] Comment on above: Performed By: #### T SH, FT3 #### [facility] [id number] Adolph Clinton XR FINGER MIN 2 [...] JESUS FELIZ Date: 2022-04-05 19:19 Normal [facility] COVID Quick Testingon 2021 Result Negative [facility] Other Quick Fluon 02-08-2022 FLUAV Ab CF (S) [Titer] Negative [facility] Other FLUBV Ab CF (S) [Titer] Negative [facility] Other MG MAMM SCREEN 3D TOD CADon 12-07-2021 MG MAMM SCREEN 3D TOD CAD Patient: TEODORA DAILY Exam Date: 12/07/2021 : 1950 Gender:F Ordering : DR SVEN PENG M.D. Admission #: [id number] Family : DR. TEODORA CHADWICK D.O. Order #: [id number] CLICK HERE TO VIEW EXAM RADIOLOGY REPORT PROCEDURE: MAMMOGRAM SCREENING 3D BILATERAL CAD COMPARISON: MG MAMM SCREEN 3D TOD CAD, 12/04/2020. MG MAMM SCREEN TOD W CAD, 12/02/2019. INDICATIONS: Screening mammography Calculator Name NCI Breast Cancer Risk Assessment Tool 5 Year Breast Cancer Risk 2.10% Lifetime Breast Cancer Risk 5.20% Personal Breast Cancer No Personal Ovarian Cancer No Treatments None Family Cancers Sister with uterine cancer at age 60. LOCATION: [facility] BREAST COMPOSITION: Scattered areas fibroglandular [...] PALPABLE LUMP SHOULD BE BIOPSIED. Dictated by: Sebastian Salguero M.D. on 12/07/2021 at 12:10 Approved by: Sebastian Salguero M.D. on 12/07/2021 at 12:13 Normal [facility] XR DEXA BONE DENSITYon 12-07 XR [...] - Moderate Fracture Risk Electronically authenticated by: SEBASTIAN SALGUERO Date: 2021-12-07 15:10 Normal [facility] MRI CARDIAC W WO CONTRASTon 10-16-2021 MRI CARDIAC W WO CONTRAST [facility] Department of Radiology [address] [place] [id number] ===== Patient Name: TEODORA DAILY : [...] 2. Electronically signed: Kane Solomon. Transcribed by: [email or web address], User Resident: Electronically Signed by: KANE SOLOMON @ 10/18/2021 02:11 PM Normal [facility] CREATININEon 09-07-2021 Creatinine [Mass/Vol] 0.77 mg/dL Normal 0.55-1.02 [facility] Comment on above: Performed By: #### C IDALIA #### [facility] [address] [place] [address] Dr. Adolph Clinotn EGFR-AF UZBEK >60 Normal >=60 [facility] Comment on above: Performed By: #### C IDALIA #### [facility] [address] [place] [address] Dr. Adolph Clinton EGFR-NON AF UZBEK >60 Normal >=60 [facility] Comment on above: Performed By: #### C IDALIA #### [facility] [address] [place] [address] HEAD WO W CONon 2 CT HEAD WO W CON EXAMINATION: CT HEAD WO W CON HISTORY: Transient cerebral ischemia COMPARISON: None. TECHNIQUE: Multiple computed tomograms of the head were obtained with and without intravenous contrast enhancement. 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 The vasculature about the lower brule of Martin appears grossly intact. IMPRESSION: There [...] by: KAILEE GARCIA Date: 2021-09-07 13:44 Normal [facility] ECHOCARDIO M/2D COMPLETEon 0 09-05-2021 ECHOCARDIO M/2D COMPLETE Patient: TEODORA DAILY Exam Date: 09/05/2021 : 1950 Gender:F Ordering : DR SVEN PENG M.D. Admission #: [id number] Family : Order #: [id number] CLICK HERE TO VIEW EXAM ECHOCARDIOGRAM REPORT [...] Area(A4C): 12.70 cm2 Left Atrium Systolic Volume(A2C): 40387 mm3 Left Atrium Systolic Volume(A4C): 12174 mm3 Mitral Valve MV E to A [...] Garcia M.D. on 09/05/2021 at 20:08 Normal [facility] Q - DEJUAN SCREEN IFA W/RFL TIT ER IFAon 05-10-2021 DEJUAN SCREEN, IFA Negative Normal NEGATIVE [facility] [employer]in[employer] Comment on above: Order Comment: [facility] performed at: [facility] [email or web address] [facility], [address], [address] [place], [address], Molder Fitting: Pedro Asencio MD [facility] Date/Time: [facility] [...] AC-0: Negative International Consensus on DEJUAN Patterns (https://doi.org/10.1515/ytwz-3636-5158) For additional information, please refer to http://education.Serveron.LaserLeap/faq/YZZ937 (This link is being provided for informational/ educational purposes only.) Performed By: #### 7 832X, 249X #### [facility] [address] [place] [address] Q - SJOGREN'S ABS (SS-A,SS-B )on 05-10-2021 SJOGREN'S ANTIBODY (SS-A) <1.0 NEG Normal <1.0 NEG [facility] [employer] Comment on above: Order Comment: [facility] performed at: [facility] [email or web address], [address] , [address] [place], [address], Molder Fitting: Pedro Asencio MD [facility] Date/Time: [facility] Results Received Date/Time: [facility] Reported Date/Time: Performed By: #### 7 832X, 249X #### [facility] [address] [place] [address] SJOGREN'S ANTIBODY (SS-B) <1.0 NEG Normal <1.0 NEG [facility] [employer] Comment on above: Order Comment: [facility] performed at: [email or web address] [facility], [address] [place] [address], [address] [place] [address], [address] [place] [address], Molder Fitting: Pedro Asencio MD [facility] Date/Time: [facility] Results Received Date/Time: [facility] Reported Date/Time: Performed By: #### 7 832X, 249X #### [facility] [address] [place] [address] Q - DEJUAN CASC [id number] CHROMATIN (NUCLEOSOMAL) ANTIBODY <1.0 NEG Normal <1.0 NEG [facility] Comment on above: Order Comment: [facility] performed at: [employer] [facility], [address] [place] [address], [address] [place] [address], [address] [place] [address], Molder Fitting: Pedro Asencio MD [facility] Date/Time: [id number] [facility] Results Received Date/Time: [facility] Reported Date/Time: [...] 12% Sjogren's syndrome and 8% polymyositis. Ribonucleoprotein (FIREARMS MODEL MAKER) antibodies are to FIREAR[employer] MODEL MAKER A and/or FIREARMS MODEL MAKER 68kD proteins; antibodies to one or both are present in >80% MCTD, 22% to 48% SLE, 14% systemic sclerosis, 12% Sjogren's and 8% polymyositis. Sm/FIREARMS MODEL MAKER antibodies are directed to epitopes formed in a complex of Sm and FIREARMS MODEL MAKER; antibodies to the Sm/FIREARMS MODEL MAKER complex are present in 54% to 94% MCTD, 30% SLE, 4% systemic sclerosis, and 9% Sjogren's and polymyositis. Sm antibody is present in 20% to 30% SLE, 8% MCTD, 10% polymyositis, 0% systemic sclerosis and 4% Sjogren's syndrome. Double stranded DNA, Chromatin, Ribonucleoprotein, Sm/FIREARMS MODEL MAKER complex and Sm antibodies are present in <2% of normal blood donors. The Burke does not rule out autoimmune disease characterized by other autoantibody specificities such as rheumatoid arthritis, autoimmune hepatitis, primary biliary cholangitis, autoimmune thyroiditis, Sarasota's disease, pernicious anemia, autoimmune neuropathies, vasculitis, celiac disease and bullous disease. Please contact your local [email or web address] laboratory if you are interested in additional testing. Performed By: #### % IN7, % #### [facility] Default [address] [place] [address] DNA (DS) ANTIBODY <1 Normal [facility] Comment on above: Order Comment: [facility] Testing performed at: [facility], [address] [place] [address], [address] [place] [address], [id number], Molder Fitting: Pedro Asencio MD [facility] Collection Date/Time: [facility] Results Received Date/Time: [facility] Reported Date/Time: Result Comment: IU/m L Interpretation < or = 4 Negative 5-9 Indeterminate > or = 10 Positive Performed By: #### % IN, % #### [facility] Default [address] [place] [address] FIREARMS MODEL MAKER ANTIBODY 1.0 POS Abnormal <1.0 NEG [facility] [employer]ing Machinist Comment on above: Order Comment: [facility] Testing performed at: [facility], [address] [facility], [address] [place] [address], [phone], Molder Fitting: Pedro Asencio MD [facility] Collection Date/Time: [facility] Results Received Date/Time: [facility] Reported Date/Time: Performed By: #### % IN7, % #### [facility] Default [address] [place] [address] SM ANTIBODY <1.0 NEG Normal <1.0 NEG [facility] Comment on above: Order Comment: [facility] Testing performed at: [facility], [address] [place] [address], [address] [place] [address], [address] [place] [address], Molder Fitting: Pedro Asencio MD [facility] Collection Date/Time: [facility] Results Received Date/Time: [facility] Reported Date/Time: Performed By: #### % IN7, % #### [facility] Default [address] [place] [address] SM/FIREARMS MODEL MAKER ANTIBODY <1.0 NEG Normal <1.0 NEG [facility] Sewing Machinist Comment on above: Order Comment: [facility] performed at: [facility], [address] [place] [address], [address] [place] [address], [address] [place] [address], Molder Fitting: Pedro Asencio MD [facility] Collection Date/Time: [facility] Results Received Date/Time: [facility] Reported Date/Time: Performed By: #### % IN7, % #### [facility] Default [address] [place] [address] Q - DEJUAN MULTIPLEX W/ REFLEX TO 11 ANTIBODY CASCADEon 05-01-2021 ANACHOICE(R) SCREEN Positive Abnormal NEGATIVE [facility] Comment on above: Order Comment: [facility] performed at: [facility], [address] [place] [address], [address] [place] [address], [address] [place] [address], Molder Fitting: Pedro Asencio MD [facility] Collection Date/Time: [id number] [facility] Results Received Date/Time: [facility] Reported Date/Time: Result Comment: A po sitive DEJUAN, Multiplex reflexes to the 3 Tiered Multiplex 11 Antibody Burke. Testing in the Burke stops at the first positive result and does not preclude additional positive results. Further laboratory testing may be considered if clinically indicated. For additional information, please refer to http://education.OptMed/faq/BBM248 (This link is being provided for informational/ educational purposes only.) Performed By: #### % IN7, %, #### [facility] [address] [place] [address] Q - FIREARMS MODEL MAKER INTERPon 05-01-2021 INTERPRETATION SEE NOTE Normal [facility] Sewing Machinist Comment on above: Order Comment: [facility] performed at: [facility], [address] [facility], [address] [place], [phone], Molder Fitting: Pedro Asencio MD [facility] Collection Date/Time: [id number] [facility] Results Received Date/Time: [facility] Reported Date/Time: Result Comment: FIREARMS MODEL MAKER antibody is found in patients with mixed [...] IN7, %, #### [facility] [address] [place] [address] Vital Signs Date Time Vital Sign Value Performing Clinician Facility 02-11-2024 11:25-0400 Body height 158.8 cm Lindsey Raymundo MD Work Phone: [facility] 02-11-2024 11:25-0400 Body mass index (BMI) [Ratio] 34.92 kg/m2 Lindsey Raymundo MD Work Phone: [facility] 02-11-2024 11:25-0400 Body weight 88 kg Lindsey Raymundo MD Work Phone: [facility] 02-11-2024 11:25-0400 Diastolic blood pressure 69 mm[Hg] Lindsey Raymundo MD Work Phone: [facility] 02-11-2024 11:25-0400 Systolic blood pressure 127 mm[Hg] Lindsey Raymundo MD Work Phone: [facility] 01-28-2024 13:42-0400 Body height 158.8 cm Joleen Hemmer PA Work Phone: [facility] [employer] 01-28-2024 13:42-0400 Body mass index (BMI) [Ratio] 35.53 kg/m2 Joleen Hemmer PA Work Phone: [facility] [employer] 01-28-2024 13:42-0400 Body weight 89.54 kg Joleen Hemmer PA Work Phone: [facility] [employer] 01-28-2024 13:42-0400 Diastolic blood pressure 72 mm[Hg] Joleen Hemmer PA Work Phone: [facility] [employer] 01-28-2024 13:42-0400 Heart rate 73 /min Joleen Hemmer PA Work Phone: [facility] [employer] 01-28-2024 13:42-0400 Respiratory rate 16 /min Joleen Hemmer PA Work Phone: [facility] [employer] 01-28-2024 13:42-0400 SaO2% (BldA) [Mass fraction] 96 % Joleen Hemmer PA Work Phone: [facility] [employer] 01-28-2024 13:42-0400 Systolic blood pressure 124 mm[Hg] Joleen Hemmer PA Work Phone: [facility] [employer] 02-08-2022 13:05-0400 Body height 158.75 cm Staci Esquivel Other [facility] Other 02-08-2022 13:05-0400 Body mass index (BMI) [Ratio] 33.29 kg/m2 Staci Esquivel Other [facility] Other 02-08-2022 13:05-0400 Body temperature 101 [degF] Staci Esquivel Other [facility] Other 02-08-2022 13:05-0400 Body weight 83.92 kg Staci Esquivel Other [facility] Other 02-08-2022 13:05-0400 Respiratory rate 18 /min Staci Esquivel Other [facility] Other 02-08-2022 13:05-0400 SaO2% (BldA) [Mass fraction] 95 % Staci Esquivel Other [facility] Other Encounters Encounter Date Encounter Type Care Provider Facility Start: 02-11-2024 End: 02-11-2024 Bamboo flowsheet Lindsey Raymundo MD Work Phone: [facility] Start: 02-11-2024 End: 02-11-2024 Bamboo flowsvenus Raymundo MD Work Phone: [facility] Start: 02-11-2024 End: 02-11-2024 Office outpatient visit 25 minutes Lindsey Raymundo MD Work Phone: [facility] Comment on above: ETD (Eustachian tube dysfunction), right (Primary Dx); Sensorineural hearing loss (SNHL), bilateral Start: 02-11-2024 End: 02-11-2024 ambulatory LINDSEY RAYMUNDO Not Available Start: 02-04-2024 End: 02-04-2024 Bamboo flowsheet Afia Anton CCC-A Work Phone: [facility] Start: 02-04-2024 End: 02-04-2024 Bamboo flowsheet Afia Anton CCC-A Work Phone: [facility] Start: 02-04-2024 End: 02-04-2024 Clinical Support Afia Anton CCC-A Work Phone: [facility] Comment on above: Sensorineural hearin g loss (SNHL) of both ears (Primary Dx); Dysfunction of right eustachian tube Start: 01-28-2024 End: 01-28-2024 Bamboo flowsheet Joleen DALEY Work Phone: [facility] Start: 01-28-2024 End: 01-28-2024 Bamboo flowsheet Joleen Courtney PA Work Phone: [facility] Start: 01-28-2024 [...] Available Start: 01-26-2024 End: 01-26-2024 Bamboo flowsheet Yaa Duke CUSTOMER SERVICE ASSOCIATE Work Phone: [facility] Start: 01-26-2024 End: 01-26-2024 Bamboo flowsheet Yaa Lopez Aplalmaz CUSTOMER SERVICE ASSOCIATE Work Phone: [facility] Start: 01-26-2024 End: 01-26-2024 Office outpatient visit 25 minutes Yaa Duke CUSTOMER SERVICE ASSOCIATE Work Phone: [facility] Comment on above: Right knee pain, uns pecified chronicity (Primary Dx); Arthritis of right knee Start: 01-26-2024 End: 01-26-2024 ambulatory YAA B APLING Not Available Start: 12-23-2023 End: 12-23-2023 ambulatory TEODORA CHADWICK Not Available Start: 11-24-2023 End: 11-24-2023 ambulatory LINDSEY RAYMUNDO Not Available Start: 09-30-2023 End: 09-30-2023 ambulatory CHET MCLAUGHLIN Not Available Start: 09-17-2023 End: 09-17-2023 ambulatory YAA Jessica APLING Not Available Start: 09-17-2023 End: 09-17-2023 ambulatory [facility] Start: 08-20-2023 End: 08-20-2023 ambulatory YAA B APLING Not Available Start: 07-14-2023 End: 07-14-2023 ambulatory JOLEEN COURTNEY Not Available Start: 06-09-2023 End: 06-09-2023 ambulatory YAA DUKE Not Available Start: 05-19-2023 End: 05-19-2023 ambulatory LINDSEY Epperson TIMMIS Not Available Start: 03-19-2023 End: 03-19-2023 ambulatory LINDSEY H TIMMIS Not Available Start: 03-18-2023 End: 03-18-2023 ambulatory CELSA Bhatia LEIGHTON Not Available Start: 07-24-2022 End: 07-25-[address] SVEN PENG Facility:[facility] Start: 06-25-2022 ambulatory OVIDIO LANDRUM Facility:[facility] Start: 04-05-2022 End: 04-05-2022 ambulatory ASHTYN CALERO . Facility:[facility] Start: 02-08-2022 End: 02-08-2022 ambulatory Staci Esquivel Other [facility] Other Start: 02-08-2022 Office outpatient ne w 20 minutes Staci Esquivel [facility] [place] Start: 01-31-2022 End: 02-01-[address] DARYL BELTRAN . Facility:[facility] Start: 12-07-2021 End: 12-08-[address] SVEN PENG Facility:[facility] Start: 10-16-2021 End: 10-17-2021 ambulatory PHYSICIAN UNKNOWN Facility:[facility] Start: 09-07-2021 End: 09-08-[address] SVEN PENG Facility:[facility] Start: 09-05-2021 End: 09-06-[address] SVEN PENG Facility:[facility] Procedures Date Procedure Procedure Detail Performing Clinician Start: 02-04-2024 AUDITORY FUNCTION TESTS Afia Anton CCC-A Work Phone: Start: 01-28-2024 Urnls dip stick/tablet rgnt non-auto w/o micrscp Joleen Courtney PA Work Phone: Start: 01-26-2024 Arthrocentesis aspir&/inj major jt/bursa w/o us Yaa Duke CUSTOMER SERVICE ASSOCIATE Work Phone: Start: 10-20-2019 End: 07-14-2023 H/O: artificial joint History of artificial joint Yaa Duke NP Work Phone: Plan of Treatment Date Care Activity Detail Author Start: 12-30-2024 End: 12-30-2024 Patient encounter procedure 12/30/2024 11:00 AM EDT Office Visit [facility] [address] [place] [id number] Teodora Chadwick DO [address] [place] [address] [facility] Start: 12-22-2024 Medicare Annual Wellness (AWV) Medicare Annual Wellness (AWV) [facility] Start: 03-02-2024 End: 03-02-2024 Patient encounter procedure 03/02/2024 11:15 AM EST Office Visit [facility] [address] [place] [address] Annette Bright MD [address] [place] [address] [facility] Start: 02-11-2024 End: 02-11-2024 Patient encounter procedure [facility] Comment on above: Arrived Start: 02-04-2024 End: 02-04-2024 Clinical Support [facility] Comment on above: Arrived Start: 01-28-2024 End: 01-28-2024 Patient encounter procedure 01/28/2024 1:30 PM EDT Office Visit [facility] [address] [place] [address] Joleen Courtney PA [address] [place] [address] Arrived [facility] Comment on above: Arrived Start: 01-26-2024 End: 01-26-2024 Patient encounter procedure 01/26/2024 10:45 AM EDT Office Visit [facility] [address] [place] [address] Yaa Duke, MAILE [address] [place] [address] Arrived [facility] Comment on above: Arrived Start: 12-21-2023 Influenza vaccination Influenza Vacc ine (#1) [facility] URINARY TRACT INFECTION (HTRX) URINARY TRACT INFECTION (HTRX) Lab Routine Urine abnormality Abnormal urinalysis Ordered: 01/28/2024 [facility] Work Phone: Comment on above: Ordered: 01/28/2024 Immunizations Immunization Date Immunization Notes Care Provider Fa cility 01-28-2024 Influenza, High-dose Seasonal, Quadrivalent, Preservative Free Joleen DALEY Work Phone: [facility] 02-05-2023 Influenza, Seasonal, Quadrivalent, Adjuvanted Joleen Courtney PA Work Phone: [facility] 02-05-2023 influenza virus vacc ine, unspecified formulation Yaa Duke CUSTOMER SERVICE ASSOCIATE Work Phone: [facility] 04-05-2022 diphtheria, tetanus toxoids and pertussis vaccine Yaa Duke CUSTOMER SERVICE ASSOCIATE Work Phone: [facility] 03-25-2022 influenza, high dose seasonal, preservative-free Yaa Duke CUSTOMER SERVICE ASSOCIATE Work Phone: [facility] 01-25-2021 Influenza, High-dose Seasonal, Quadrivalent, Preservative Free Yaa Duke CUSTOMER SERVICE ASSOCIATE Work Phone: [facility] 02-25-2020 Influenza, Seasonal, Quadrivalent, Adjuvanted Yaa Duke CUSTOMER SERVICE ASSOCIATE Work Phone: [facility] 10-11-2019 pneumococcal polysaccharide vaccine, 23 valent Yaa Duke CUSTOMER SERVICE ASSOCIATE Work Phone: [facility] 06-06-2019 zoster vaccine yeseina Duke CUSTOMER SERVICE ASSOCIATE Work Phone: [facility] 01-28-2019 influenza, high dose seasonal, preservative-free Yaa Duke CUSTOMER SERVICE ASSOCIATE Work Phone: [facility] 02-13-2018 influenza, high dose seasonal, preservative-free Yaa Duke CUSTOMER SERVICE ASSOCIATE Work Phone: [facility] 01-08-2018 pneumococcal conjuga te vaccine, 13 valent Yaa Duke CUSTOMER SERVICE ASSOCIATE Work Phone: [facility] 02-12-2017 Influenza, High-dose Seasonal, Quadrivalent, Preservative Free Yaa Duke CUSTOMER SERVICE ASSOCIATE Work Phone: [facility] 01-27-2002 zoster vaccine, live Yaa garcia CUSTOMER SERVICE ASSOCIATE Work Phone: [facility] Healthcare Payers Date Payer Category Payer Medicare HUMANA MEDICARE ADVANTAGE HU[employer]NA MEDICARE [id number] 2020-Present [address] [place] [id number] 2020 Medicare (Managed Care) HU[employer]NA EDICARE ADVANTAGE [id number] 1959 Private Health Insurance [id number] 1948 Unknown [id number] 2.840.1.842043.3.579 .2.647 1948 Unknown [id number] 2.16840.1.811932.3.579 .2.593 1948 Unknown [id number] 2.16840.1.671661.3.579 .2.593 1948 Unknown [id number] 2.840.1.125258.3.579 .2.593 1948 Unknown [id number] 2.16.840.1.124786.3.579 .2.593 1948 Unknown [id number] 2.16.840.1.879639.3.579 .2.593 1948 Unknown [id number] 2.16.840.1.280000.3.579 .2.593 1948 Unknown [id number] 2.16.840.1.798210.3.579 .2.593 1948 Unknown [id number] 2.16.840.1.258508.3.579 .2.125 1948 Unknown [id number] 2.16.840.1.250375.3.579 .2.125 1948 Unknown [id number] 2.16.840.1.962040.3.579 .2.125 1948 Unknown [id number] 2.16.840.1.480019.3.579 .2.125 1948 Unknown [id number] 2.16.840.1.038524.3.579 .2.125 1948 Unknown [id number] 2.16.840.1.982754.3.579 .2.125 1948 Unknown [id number] 2.16.840.1.178580.3.579 .2.125 1948 Unknown [id number] 2.16.840.1.058208.3.579 .2.125 1948 Unknown [id number] 2.16.840.1.473331.3.579 .2.125 1948 Unknown [id number] 2.16.840.1.713215.3.579 .2.125 1948 Unknown [id number] 2.16.840.1.138189.3.579 .2.125 1948 Unknown [id number] 2.16.840.1.539679.3.579 .2.1259 1948 Unknown [id number] 2.16.840.1.141751.3.579 .2.9 1948 Unknown [id number] 2.16.840.1.876351.3.579 .2.9 1948 Unknown [id number] 2.16.840.1.254041.3.579 .2.9 1948 Unknown [id number] 2.16.840.1.084712.3.579 .2.9 1948 Unknown [id number] 2.16.840.1.839456.3.579 .2.1259 Social History Date Type Detail Facility Start: 05-18-2023 End: 07-14-2023 Sex Assigned At [facility] Start: 12-03-2022 Tobacco smoking stat [facility] Ex-smoker [facility] Start: 11-19-1966 End: 04-21-2007 History of tobacco use Current smoker [facility] Start: 11-19-1966 End: 04-21-2007 History of tobacco use Cigarette Smoker [facility] Start: 12-03-2022 End: 07-14-2023 Cigarettes smoked current (pack per day) - Reported 1 [facility] Start: 12-03-2022 Tobacco use and exposure Smokeless t obacco non-user [facility] Start: 01-26-2024 End: 02-11-2024 Alcoholic beverage intake Current drinker of alcohol [...] Start: 09-06-2022 Sexual orientation Heterosexual (fin ding) [facility] Clinical Notes 01-31-2022 to 02-11-2024 Lindsey Raymundo MD - 02/11/2024 11:20 AM Elidia Anton CCC-Jannette - 02/04/2024 8:30 AM THUY Banda - 01/28/2024 1:30 PM Miryam Duke NP - 01/26/2024 10:45 AM EDT Note Date & Type Note Facility 02-11-2024 History of Present illness Narrative Subjective Patient ID: Teodora Daily is a 74 y.o. female who presents for Ear Problem (Follow up audio 02/04/24) Audio shows tod downsloping SNHL. Negative right tymp. Pt continues to have to pop her ears in order to clear. Review of Systems All other systems reviewed and are negative. Family History Problem Relation Name Age of Onset Alzheimer's disease Mother Mariah Hypertension Mother Mariah Pernicious anemia Father Alcohol abuse Father Suicidality Paternal Grandfather Heart disease Sibling Heart failure Sister Indy, Mey Heart failure Brother Suleman Hypertension Sister Mey, Indy Migraines Sister Indy Stroke Sister Mey Active Ambulatory Problems Diagnosis Date Noted Allergic rhinitis 04/04/2018 Arthritis of right acromioclavicular joint 04/25/2020 Bilateral lower extremity edema 11/10/2022 Bilateral tinnitus 02/24/2018 Chronic tympanitis 03/10/2018 Decreased estrogen level 11/10/2022 Disorder of sacrum 06/25/2022 Dry eye syndrome of bilateral lacrimal glands 11/10/2022 Dyspepsia 07/13/2018 ETD (Eustachian tube dysfunction), right 01/30/2021 Former smoker 10/11/2019 Herniated lumbar intervertebral disc 11/10/2022 History of colon resection 11/10/2022 Impaired glucose tolerance 05/11/2018 Intermittent palpitations 02/25/2022 Internal derangement of right shoulder 03/20/2020 Keratoconjunctivitis sicca, not specified as Sjogren's, bilateral 11/10/2022 Obstructive hypertrophic cardiomyopathy (CMS/HCC) 11/10/2022 Lumbosacral spondylosis without myelopathy 04/04/2018 Obesity (BMI 30.0-34.9) 11/10/2022 Osteopenia 04/04/2018 Overactive bladder 04/04/2018 Primary hypertension ([facility]) 05/11/2018 Osteoarthritis of spine with radiculopathy, lumbar region 11/10/2022 Primary osteoarthritis of both knees 11/10/2022 Primary osteoarthritis of left hip 11/10/2022 Punctate keratitis of both eyes 11/10/2022 Sensorineural hearing loss, bilateral 02/24/2018 Sjogren's syndrome ([facility]) 04/27/2021 Multiple perforations of right tympanic membrane 05/19/2023 Left ventricular hypertrophy 09/24/2021 History of TIA (transient ischemic attack) 07/14/2023 History of left hip replacement 07/14/2023 Resolved Ambulatory Problems Diagnosis Date Noted Gastroesophageal reflux disease 07/29/2018 History of artificial joint 10/20/2019 Obesity 08/04/2018 Reactive airway disease ([facility]) 10/26/2020 TIA (transient ischemic attack) 11/10/2022 Perforation of right tympanic membrane 05/19/2023 Past Medical History: Diagnosis Date Arthritis Bladder spasms Bunion Chronic lumbar pain Chronic myringitis of right ear COVID-19 06/2021 Ear problems Eustachian tube dysfunction, right Hammer toe HL (hearing loss) Lumbosacral disc disease Tendinitis of knee Tinnitus Past Surgical History: Procedure Laterality Date ADENOIDECTOMY BLADDER SUSPENSION 2013 BLEPHAROPTOSIS REPAIR 2019 Eye lid surgery BUNIONECTOMY CATARACT EXTRACTION 01/2019 COLECTOMY 2008 COLONOSCOPY 2013 FOOT SURGERY multiple foot sx, [phone] HYSTERECTOMY 1998 IR ABLATION BONE 12/15/2018 LT RFA T12-L3 IR INJECTION NERVE BLOCK 04/09/2018 L2-L5 nerve blocks IR INJECTION NERVE BLOCK Left 07/21/2018 T12-L3 nerve blocks LUMBAR EPIDURAL INJECTION 04/03/2021 OTHER SURGICAL HISTORY 1985 T Tube, [place] PARTIAL HIP REPLACEMENT 08/2018 TOE SURGERY TONSILLECTOMY TOTAL HIP ARTHROPLASTY Left 09/07/2018 Dr Neves TYMPANOSTOMY TUBE PLACEMENT Allergies Allergen Reactions Sulfa Antibiotics Anaphylaxis, Hives, Itching, Rash, Shortness of breath and Swelling Other Reaction(s): hives, swelling Itching, throat swelling, hives Hydrocodone Can take as needed, gets itching if takes as prescribed on hourly basis Oxycodone Hives, Itching and Rash Other Reaction(s): itching, hives Itching, hives Current Outpatient Medications on File Prior to Visit Medication Sig Dispense Refill aspirin 81 MG chewable tablet Chew 1 tablet twice a day by oral route. cholecalciferol (Vitamin D-3) 50 MCG (2000 UT) [...] in the morning. 100 tablet 3 [DISCONTINUED] Ascorbic Acid (vitamin C) 1000 MG tablet 1 (one) time each day at the same time. [DISCONTINUED] calcium carbonate 1500 (600 Ca) MG tablet every 12 (twelve) hours. No current facility-administered medications on file prior to visit. Objective Last Recorded Vitals Vitals: 02/11/24 1125 BP: 127/69 ENT Physical Exam Ear Ear Canals: right ear canal normal; Ear comments: RT - Myringosclerosis Respiratory Inspection: breathing unlabored; normal breathing rate; Auscultation: breath sounds are clear; Cardiovascular Inspection: extremities are warm and well perfused; no peripheral edema present; Auscultation: regular rate and rhythm; Assessment/Plan Diagnoses and all orders for this visit: ETD (Eustachian tube dysfunction), right RT ETD persists. Proceed with RT t-tube under anesthesia Sensorineural hearing loss (SNHL), bilateral Recommend tod hearing aids documented in this encounter [facility] 02-04-2024 History of Present illness Narrative History: Pt is s/p tube [...] Type Ad tympanogram documented in this encounter [facility] 01-28-2024 History of Present illness Narrative Images from the original note [...] weeks. 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 get corporation lawyer in color then goes back to darker [...] Grandfather Heart disease Sibling Heart failure Sister Indy, Mey Heart failure Brother Suleman Hypertension Sister Mey, [...] Date ADENOIDECTOMY BLADDER SUSPENSION 2013 BLEPHAROPTOSIS REPAIR 2018 Eye lid surgery BUNIONECTOMY CATARACT EXTRACTION 01/2019 COLECTOMY 2008 COLONOSCOPY 2013 FOOT SURGERY multiple foot sx, [phone] HYSTERECTOMY 1998 IR ABLATION BONE 12/15/2018 LT RFA T12-L3 IR INJECTION NERVE BLOCK 04/09/2018 L2-L5 nerve blocks IR INJECTION NERVE BLOCK Left 07/21/2018 T12-L3 nerve blocks LUMBAR EPIDURAL INJECTION 04/03/2021 OTHER SURGICAL HISTORY 1985 T Tube, [place] PARTIAL HIP REPLACEMENT 08/2018 TOE SURGERY TONSILLECTOMY [...] Final Glucose, UA 01/28/2024 Negative Negative - 1999(110) ++++ mg/dL Final Bilirubin, UA 01/28/2024 Negative Negative - 4(70) +++ mg/dL Final Ketones, UA 01/28/2024 Negative Negative - 160(16) ++++ mg/dL Final Spec Grav, UA 01/28/2024 1.005 1 - 1.03 Final Blood, UA 01/28/2024 Negative Negative - 50 Nas/mcL Final pH, UA 01/28/2024 6.5 5 - 9 Final Protein, UA 01/28/2024 Negative Negative - 1999(20) ++++ mg/dL Final Urobilinogen, UA 01/28/2024 1.0 [...] immunization - Influenza, high-dose seasonal, quadrivalent, PF ([id number]) (Fluzone High Dose Quad [place] 0.7mL dose) [...] Medicare Wellness Visit. documented in this encounter [facility] 01-26-2024 History of Present illness Narrative Associated Order(s): L Inj/Asp: R knee Post-Procedure Diagnose(s): Arthritis of right knee Subjective Patient ID: Teodora Daily is a 74 y.o. female. RT Knee *Wants inj Last saw Caren 09/17/23 for the RT knee and was referred to [facility] for eval for visco supplementation, [...] for her back, sees pain management at [facility]. Admits ice prn. Also uses heat and voltaren occas with some relief, but gets the most relief with ice. Good rom, pain with ROM. Denies waking at night. TX: XR [facility] 08/20/23, heat, aleve, IBU, depo injection 04/23/22, depo injection 10/29/22, MRI [facility] 12/17/22, Depo injx 01/07/23 and [...] tolerated, f/u prn documented in this encounter [facility] 09-17-2023 Note [place] [facility] Subjective Teodora Daily is a 73 [...] No swelling. Cervical (more content not included)... [facility] 02-08-2022 Evaluation note Encounter Date Diagnosis Assessment [...] no improvement in 2 to 3 days [facility] Other 10-13-2022 NoteCONSULTATION CONSULTATION DATE: 01/31/2022 HISTORY OF PRESENT ILLNESS: [...] on a p.r.n. basis at the patient's discretion.[facility] Right knee pain, unspecified chronicity- Primary Arthritis of right knee [facility] Diagnosis Ecchymosis- Primary Other specified circulatory system disorders Urine abnormality Other nonspecific finding on examination of urine Encounter for immunization Abnormal urinalysis Other nonspecific finding on examination of urine Weight gain Other symptoms concerning nutrition, metabolism, and development Major depressive disorder, single episode, moderate (HCC) (CMS/HCC) Major depressive disorder, single episode, moderate Supraventricular tachycardia, unspecified (CMS/HCC) [facility] Diagnosis Sensorineural hearing loss (SNHL) of both ears- Primary Dysfunction of right eustachian tube documented [facility] Diagnosis ETD (Eustachian tube dysfunction), right- Primary Sensorineural hearing loss (SNHL), bilateral [facility] N[facility]ative - Reported* Type Description Date Medical History osteoporosis Medical History herniated disc Medical History hypertrophic cardiomyopathy Surgical History Hip Replacement 2017 [facility] Other Summary Purpose Family History No Family [...] right knee Procedures L Inj/Asp: R knee [employer] [address] [place] [address] Referral ID Status Reason Start Date Expiration Date V isits Requested Visits Authorized [id number] Authorized 01/26/2024 07/24/2024 1 1 Additional Source Comments INFORMATION SOURCE (unrecogn ized section and content) DATE CREATED AUTHOR 05/13/2021 [facility] Specialist DATE CREATED AUTHOR AUTHOR'S ORGANIZ ATION 10/23/2021 [facility] DATE CREATED AUTHOR AUTHOR'S ORGANIZ ATION 08/03/2022 [facility] DATE CREATED AUTHOR AUTHOR'S ORGANIZ ATION 02/13/2024 [facility]ists EPIC DATE CREATED AUTHOR AUTHOR'S ORGANIZ ATION 02/16/2024 [facility] REASON FOR VISIT (unrecogniz ed [...] has fatigue, hair loss, dry skin, constipation. Reason Comments Ear Problem Follow up audio 01/19 10/12 Care Teams (unrecognized sec tion and content) [employer] Relationship Specialty Start Date End Date Sven Peng MD [address] [place] [address] PCP - [employer] 04/21/20 Sven Peng MD [address] [place] [address] PCP - General Internal Medicine 08/27/22 [employer] Relationship Specialty Start Date End Date Sven Peng MD [address] [place] [address] PCP - [employer] 04/21/20 Sven Peng MD [address] [place] [address] PCP - General Internal Medicine 08/27/22 [employer] Relationship Specialty Start Date End Date Sven Peng MD [address] [place] [address] PCP - [employer] 04/21/20 Sven Peng MD [address] [place] [address] PCP - General Internal Medicine 08/27/22 [employer] Relationship Specialty Start Date End Date Sven Peng MD [address] [place] [address] PCP - [employer] 04/21/20 Sven Peng MD [address] [place] [address] PCP - General Internal Medicine 08/27/22 [employer] Relationship Specialty Start Date End Date Sven Peng MD [address] [place] [address] PCP - [employer] 04/21/20 Sven Peng MD [address] [place] [address] PCP - General Internal Medicine 08/27/22 FOR [...] BE BASED ON THE PRIMARY CLINICAL RECORDS. [facility] [employer] [facility]. provides no warranty or guarantee of the accuracy or completeness of information in this document.
[2024-02-24 07:37] VITALS: BP 126/80; PULSE 78; TEMP 36.8; O2SAT 95
[2024-02-24] MEDS: 0.9 % SODIUM CHLORIDE 500 ML 50 ML IV (07:54)
[2024-02-24] MEDS: BUPIVACAINE HCL 0.25% PF 25 MG/10 ML VIAL 8 ML INJ (08:57)
[2024-02-24] MEDS: LIDOCAINE HCL 2% 400 MG/20 ML MDV 9 ML INJ (08:57)
[2024-02-24] MEDS: METHYLPREDNISOLONE ACETATE 40 MG/ML VIAL INJ (08:57)
[2024-02-24 08:59] VITALS: BP 93/59; PULSE 83; TEMP 36.1; O2SAT 96
[2024-02-24 09:03] VITALS: BP 94/66; PULSE 84; TEMP 36.1; O2SAT 96
--- NOTE | 2024-02-24 09:16 | W.PM.PROCNOT ---
Date of procedure: 02/24/24 Pre-op diagnosis: Lumbar spondylosis Post-op diagnosis: same as pre-op Procedure: Bilateral Lumbar 4-5 Radiofrequency ablation Under fluoroscopic guidance Rhizotomy was created using radio frequency ablation at 80?C for 90 seconds 1 to 2 lesions created at each site. Post lesioning injection of 2 mL each of 0.25% Marcaine and 2% lidocaine with Depo-Medrol 40mg. 0.5 to 1 mL injected at each site IV in place yes If Intravenous fluids: NS at KVO Anesthesia local 2% lidocaine for Anesthesia Other: MAC Timeout process compliant After informed consent obtained.Patient brought to the procedure room placed in the prone position skin overlying the area was prepped and draped in a sterile fashion using betadine. 25 gauge needle was used to create a skin wheal over each of the targeted areas utilizing 2% lidocaine. A rhizotomy needle with a 10 mm active tip was inserted over each of the anesthetized areas and directed towards each of the medial branches accomplished under fluoroscopic guidance. after encountering the same we had positive sensory stimulation, negative motor stimulation was noted. lesions were then created. Post lesioning, steroid solution was injected needles removed. Patient was transferred to recovery room in stable condition to be discharged home after meeting criteria. Anesthesia: MAC Surgeon: Marion Abraham Condition: stable Disposition: PACU
== END 2024-02-24 09:22 | disposition home or self-care (01) ==
LOC: SURGOUT 07:26
PROVIDERS: PCP Internal Medicine; Visit Provider Anesthesiology Pain Medicine
DX: M47.816 Spondylosis without myelopathy or radiculopathy, lumbar region (principal); Z90.710 Acquired absence of both cervix and uterus; I10 Essential (primary) hypertension; I42.2 Other hypertrophic cardiomyopathy
CPT/HCPCS: 64635; J0665; J1010; J2704

== ENCOUNTER 2024-03-23 12:51 | Outpatient (OUT) | payer MEDICARE, SELFPAY ==
--- NOTE | 2024-03-23 | CONS_ITS ---
CONSULTATION DATE: 03/23/2024 TO: Dr. Peng HISTORY: She returns today complaining of 5-7/10 pain in her left buttock area. She describes this as a burning type of pain, increased with activities such as standing, walking and performing transitioning maneuvers. She feels most comfortable in the semi-recumbent position. She denies any change in bowel and bladder habits or new sensorimotor change in the lower extremities. She has undergone a rhizotomy using radiofrequency ablation of the L4-5 and L5-S1 levels. She reports the pain in that portion of her back is improved by 100%, but she is left with this residual and progressive pain in her left buttock area. EXAM: Her examination is notable for patient having dysesthesia and hyperesthesia overlying the distribution of the left superior gluteal nerve. She had significant myofascial dysfunction of the left gluteus medius muscle with myalgias and spasm. 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 On September 09, 2023, the patient had undergone a diagnostic bilateral superior gluteal nerve injection under fluoroscopic guidance. She reports having a tremendous reduction in pain symptoms after the diagnostic procedure. RECOMMENDATIONS: I have recommended we proceed with a rhizotomy using radiofrequency ablation of the left superior gluteal nerve under fluoroscopy. I have also asked her to consider aquatic therapy for her myofascial dysfunction involving the gluteus medius muscle. As part of providing excellent, safe, comprehensive care, the following was completed at our patient's visit: 1. A medication reconciliation and review to ensure accurate knowledge of current/active medications, including asking our patients to inform us about any [id number] medications or herbal remedies/nutritional supplements/alternative remedies. 2. A review to specifically ensure our patients have had annual screening for: elevated body mass index (BMI, see intake chart for exact total), tobacco use, screening for depression, and screening for unhealthy alcohol use. When screening is concerning, patients are provided with education and the specific recommendation to discuss the concerning health issue and treatment options with their primary care provider. DANICA
--- OUTSIDE RECORDS SUMMARY | 2024-03-23 12:55 | XMS_ITS | CCD ---
Author Organization [facility] Care Team Providers Care Environmental Services Lead Name Role Phone UNKNOWN, PHYSICIAN Referring Unavailable [...] BOSS Attending Unavailable Sven Peng MD Unavailable [phone] Sven Peng MD Primary Care Provider [phone] LINDSEY RAYMUNDO Attending Unavailable SVEN PENG Referring Unavailable YAA DUKE Attending Unavailable CELSA NEVES Attending Unavailable YAA DUKE Referring Unavailable JOLEEN COURTNEY Attending Unavailable YAA UDKE Attending Unavailable LINDSEY RAYMUNDO Attending Unavailable YAA [...] Drug Allergy 08-01-19 19 hives, Itching, Rash [facility] Other (1 source) Sulfacetamide Drug Allergy neck swelled, hives [facility] Other (2 sources) oxyCODONE Drug Allergy [facility] Repository (2 sources) Sulfonamides (Antibiotic) Drug allergy (disorder) [facility] Repository (11 sources) HYDROcodone Drug Allergy 08-01-19 19 [facility] Work Phone: (11 sources) Sulfonamides (Antibiotic) Drug Intolerance 08-01-19 19 Anaphylaxis, Hives, Itching, Rash, Shortness of breath, Swelling [facility] (1 source) Sulfonamides (Antibiotic); Translations: [SULFA (SULFONAMIDE ANTIBIOTICS)] Propensity to adverse reactions to drug (disorder) 12-26-19 22 [facility] Repository Medications Current Medications Medication Drug Class(es) [...] 04-05-2022 Episodic Other aftercare (1 source) Other shelter (current) drug therapy; Translations: [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 [facility]inal[facility] macro (dipstick) panel (U)on 01-28-2024 Bilirubin, UA Negative Negative - 4(70) +++ mg/dL [facility] Blood, UA Negative Negative - 50 Nas/mcL [facility] Clarity, UA Clear [facility] Sush.iosd re Color, UA Yellow [facility] Appir[employer] Glucose, UA Negative Negative - 2000(110) ++++ mg/dL [facility] Interpretation and review of laboratory results Abnormal [facility] Sush.iosd re Ketones, UA Negative Negative - 160(16) ++++ mg/dL [facility] Leukocytes, UA Trace Negative - 500+++ Aisha/mcL [facility] Nitrite, UA Negative Negative - Positive [facility] pH, UA 6.5 5 - 9 [facility] [employer] Protein, UA Negative Negative - 2000(20) ++++ mg/dL [facility] Spec Grav, UA 1.005 1 - 1.03 [facility] Urobilinogen, UA 1.0 0.2 - 12 mg/dL [facility] No Panel Informationon 01-25 [...] discussed. Consent was given by the patient. [facility] XDCS Healthcar e 36on 01-19-2024 36 Pt called back and w as informed by [facility] 36on 2024 36 Stress test results From: Chris Garcia MD Sent: 01/14/2024 1:24 AM EDT To: Lakisha Castillo MA Subject: RE: Scan Her stress test was normal. Follow-up in the next 6 months. ----- Message ----- Left message to call us back [facility] Telephoneon 2024 Telephone [id number] Teodora Daily Jessica 1950 F Date Provider Department Center 2024 [id number], TANA MATTHEW [facility] Family History Problem Relation Age of Onset Other Mother Hypertrophic cardiomyopathy Sister Stroke Sister Other Sister Hypertrophic cardiomyopathy Brother Family Status - Relation Status Age at Mother Sister Brother [facility] 36on 11-06-2023 36 Regarding echo resul t from 10/21/2023: MD Lakisha London MA Her echo was ok, I want her to get a stress test (dx shortness of breath), if she cannot do treadmill then [employer]. Spoke with patient and made her aware. She agreed to treadmill stress test. Order faxed to [facility]. [facility] Office Visiton 09-17-2023 Follow-up visit [id number] AbimbolaTeodora Jessica 1950 Date Provider Department Center 09/17/2023 367-CHRIS GARCIA Family History Problem Relation Age of Onset Other Mother Hypertrophic cardiomyopathy Sister Stroke Sister Other Sister Hypertrophic cardiomyopathy Brother Family Status - Relation Status Age at Mother Sister Brother Level of Service:30711 PA OFFICE/OUTPATIENT ESTABLISHED MOD MDM 30 MIN [facility] FREE T3on 07-24-2022 FREE T3 2.66 pg/mlL Normal 2.18-3.98 [facility] Comment on above: Performed By: #### T SH, FT3 #### [facility] [address] [address] [address] Adolph Clinton FREE T4on 07-24-2022 Free T4 [Mass/Vol] 0.85 ng/dL Normal 0.76-1.46 [facility] Comment on above: Performed By: #### F T4 #### [facility] [address] [place], [place] [address] Dr. Adolph Clinton TSHon 07-24-2022 TSH 2.124 uIU/mL Normal 0.358-3.740 [facility] Comment on above: Performed By: #### T SH, FT3 #### [facility] [id number] Adolph Clinton XR FINGER MIN 2 [...] Date: 2022-04-05 19:19 Normal [facility] COVID Quick Testingon 2021 Result Negative [employer] Other Quick Fluon 02-08-2022 FLUAV Ab CF (S) [Titer] Negative [employer] Other FLUBV Ab CF (S) [Titer] Negative [employer] Other MG MAMM SCREEN 3D TOD CADon 12-07-2021 MG MAMM SCREEN 3D TOD CAD Patient: TEODORA DAILY Exam Date: 12/07/2021 : 1950 Gender:F Ordering : DR SVEN PENG M.D. Admission #: [id number] Family : DR. TEODORA CHADWICK D.O. Order #: [id number] CLICK HERE TO VIEW EXAM RADIOLOGY REPORT [...] at age 58. LOCATION: [facility] BREAST COMPOSITION: Scattered areas fibroglandular density. [...] Salguero M.D. on 12/07/2021 at 12:13 Normal [facility] XR DEXA BONE DENSITYon 12-07 XR [...] by: SEBASTIAN SALGUERO Date: 2021-12-07 15:10 Normal [facility] MRI CARDIAC W WO CONTRASTon 10-16-2021 MRI CARDIAC W WO CONTRAST [facility] Department of Radiology [address] [place] [id number] ===== Patient Name: TEODORA DAILY : [...] 2. Electronically signed: Kane Solomon. Transcribed by: [email or web address], User Resident: Electronically Signed by: KANE SOLOMON @ 10/18/2021 02:11 PM Normal [facility] CREATININEon 09-07-2021 Creatinine [Mass/Vol] 0.77 mg/dL Normal 0.55-1.02 [facility] Comment on above: Performed By: #### C IDALIA #### [facility] [address] [place] [address] Dr. Adolph Clinton EGFR-AF BAHRAINI >60 Normal >=60 [facility] Comment on above: Performed By: #### C IDALIA #### [facility] [address] [place] [address] Dr. Adolph Clinton EGFR-NON AF BAHRAINI >60 Normal >=60 [facility] Comment on above: Performed By: #### C IDALIA #### [facility] [address] [place] [address] HEAD WO W CONon 2 CT HEAD WO W CON EXAMINATION: CT HEAD WO W CON HISTORY: Transient cerebral ischemia COMPARISON: None. TECHNIQUE: Multiple computed tomograms of the head were obtained with and without intravenous contrast enhancement. 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 The vasculature about the [place] appears grossly intact. IMPRESSION: [...] by: KAILEE GARCIA Date: 2021-09-07 13:44 Normal [facility] ECHOCARDIO M/2D COMPLETEon 0 09-05-2021 ECHOCARDIO M/2D COMPLETE Patient: TEODORA DAILY Exam Date: 09/05/2021 : 1950 Gender:F Ordering : DR SVEN PENG M.D. Admission #: [id number] Family : Order #: [id number] CLICK HERE TO VIEW EXAM ECHOCARDIOGRAM REPORT [...] Area(A4C): 12.70 cm2 Left Atrium Systolic Volume(A2C): 18884 mm3 Left Atrium Systolic Volume(A4C): 34729 mm3 Mitral Valve MV E to A [...] Garcia M.D. on 09/05/2021 at 20:08 Normal [facility] Q - DEJUAN SCREEN IFA W/RFL TIT ER IFAon 05-10-2021 DEJUAN SCREEN, IFA Negative Normal NEGATIVE [facility] Patient Safety Coordinator Comment on above: Order Comment: [facility] Testing performed at: [employer], [facility], [address] [facility], [address] [place], [address], Heel Seat Laster: Pedro Asencio MD [facility] Collection Date/Time: [facility] [...] AC-0: Negative International Consensus on DEJUAN Patterns (https://doi.org/10.1515/hucr-3842-0010) For additional information, please refer to http://education.Ylopo.TOPSEC/faq/LDH504 (This link is being provided for informational/ educational purposes only.) Performed By: #### 7 832X, 249X #### [facility] [address] [place] [address] Q - SJOGREN'S ABS (SS-A,SS-B )on 05-10-2021 SJOGREN'S ANTIBODY (SS-A) <1.0 NEG Normal <1.0 NEG [facility] Patient Safety Coordinator Comment on above: Order Comment: [facility] performed at: [employer], [facility], [address] , [address] [place], [address], Heel Seat Laster: Pedro Asencio MD [facility] Collection Date/Time: [facility] Results Received Date/Time: [facility] Reported Date/Time: Performed By: #### 7 832X, 249X #### [facility] Default [address] [place] [address] SJOGREN'S ANTIBODY (SS-B) <1.0 NEG Normal <1.0 NEG [facility] Patient Safety Coordinator Comment on above: Order Comment: [facility] performed at: [employer], [facility], [address] [place] [address], [address] [place] [address], [address] [place] [address], Heel Seat Laster: Pedro Asencio MD [facility] Collection Date/Time: [facility] Results Received Date/Time: [facility] Reported Date/Time: Performed By: #### 7 832X, 249X #### [facility] Default [address] [place] [address] Q - DEJUAN CASC [id number] CHROMATIN (NUCLEOSOMAL) ANTIBODY <1.0 NEG Normal <1.0 NEG [facility] Comment on above: Order Comment: [facility] Testing performed at: [employer] [facility], [address] [place] [address], [address] [place] [address], [address] [place] [address], Heel Seat Laster: Pedro Asencio MD [facility] Collection Date/Time: [id number] [facility] Results Received Date/Time: [facility] Reported Date/Time: [...] 12% Sjogren's syndrome and 8% polymyositis. Ribonucleoprotein (PAINTER CHASSIS) antibodies are to PAINTER CHASSIS A and/or PAINTER CHASSIS 68kD proteins; antibodies to one or both are present in >80% MCTD, 22% to 48% SLE, 14% systemic sclerosis, 12% Sjogren's and 8% polymyositis. Sm/PAINTER CHASSIS antibodies are directed to epitopes formed in a complex of Sm and PAINTER CHASSIS; antibodies to the Sm/PAINTER CHASSIS complex are present in 54% to 94% MCTD, 30% SLE, 4% systemic sclerosis, and 9% Sjogren's and polymyositis. Sm antibody is present in 20% to 30% SLE, 8% MCTD, 10% polymyositis, 0% systemic sclerosis and 4% Sjogren's syndrome. Double stranded DNA, Chromatin, Ribonucleoprotein, Sm/PAINTER CHASSIS complex and Sm antibodies are present in <2% of normal blood donors. The [place] does not rule out autoimmune disease characterized by other autoantibody specificities such as rheumatoid arthritis, autoimmune hepatitis, primary biliary cholangitis, autoimmune thyroiditis, Lewis's disease, pernicious anemia, autoimmune neuropathies, vasculitis, celiac disease and bullous disease. Please contact your local [facility] laboratory if you are interested in additional testing. Performed By: #### % IN7, % #### [facility] [address] [place] [address] DNA (DS) ANTIBODY <1 Normal [facility] Comment on above: Order Comment: [facility] Testing performed at: [employer] [facility], [address] [place] [address], [address] [place] [address], [phone], Heel Seat Laster: Pedro Asencio MD [facility] Collection Date/Time: [facility] Results Received Date/Time: [facility] Reported Date/Time: Result Comment: IU/m L Interpretation < or = 4 Negative 5-9 Indeterminate > or = 10 Positive Performed By: #### % IN, % #### [facility] [address] [place] [address] PAINTER CHASSIS ANTIBODY 1.0 POS Abnormal <1.0 NEG [facility] Patient Safety Coordinator Comment on above: Order Comment: [facility] Testing performed at: [employer] [facility], [address] [facility], [address] [place] [address], [phone], Heel Seat Laster: Pedro Asencio MD [facility] Collection Date/Time: [facility] Results Received Date/Time: [facility] Reported Date/Time: Performed By: #### % IN7, % #### [facility] Default [address] [place] [address] SM ANTIBODY <1.0 NEG Normal <1.0 NEG [facility] Specialist Comment on above: Order Comment: [facility] Testing performed at: [employer] [facility], [address] [place] [address], [address] [place] [address], [address] [place] [address], Heel Seat Laster: Pedro Asencio MD [facility] Collection Date/Time: [facility] Results Received Date/Time: [facility] Reported Date/Time: Performed By: #### % IN7, % #### [facility] Default [address] [place] [address] SM/PAINTER CHASSIS ANTIBODY <1.0 NEG Normal <1.0 NEG [facility] Patient Safety Coordinator Comment on above: Order Comment: [facility] Testing performed at: [employer] [facility], [address] [place] [address], [address] [place] [address], [address] [place] [address], Heel Seat Laster: Pedro Asencio MD [facility] Collection Date/Time: [facility] Results Received Date/Time: [facility] Reported Date/Time: Performed By: #### % IN7, % #### [facility] Default [address] [place] [address] Q - DEJUAN MULTIPLEX W/ REFLEX TO 11 ANTIBODY CASCADEon 05-01-2021 ANACHOICE(R) SCREEN Positive Abnormal NEGATIVE [facility] Specialist Comment on above: Order Comment: [facility] performed at: [employer] [facility], [address] [place] [address], [address] [place] [address], [address] [place] [address], Heel Seat Laster: Pedro Asencio MD [facility] Collection Date/Time: [id number] [facility] Results Received Date/Time: [facility] Reported Date/Time: Result Comment: A po sitive DEJUAN, Multiplex reflexes to the 3 Tiered Multiplex 11 Antibody [place]. Testing in the [place] stops at the first positive result and does not preclude additional positive results. Further laboratory testing may be considered if clinically indicated. For additional information, please refer to http://education.SepSensor/faq/UEK265 (This link is being provided for informational/ educational purposes only.) Performed By: #### % IN7, %, #### [facility] [address] [place] [address] Q - PAINTER CHASSIS INTERPon 05-01-2021 INTERPRETATION SEE NOTE Normal [facility] Patient Safety Coordinator Comment on above: Order Comment: [facility] Testing performed at: [employer], [employer] [facility], [address] [facility], [address] [place], [address], Heel Seat Laster: Pedro Asencio MD [facility] Collection Date/Time: [id number] [facility] Results Received Date/Time: [facility] Reported Date/Time: Result Comment: PAINTER CHASSIS antibody is found in patients with mixed [...] IN7, %, #### [facility] [address] [place] [address] Vital Signs Date Time Vital Sign Value Performing Clinician Facility 02-11-2024 11:25-0400 Body height 158.8 cm Lindsey Raymundo MD Work Phone: [facility] 02-11-2024 11:25-0400 Body mass index (BMI) [Ratio] 34.92 kg/m2 Lindsey Raymundo MD Work Phone: [facility] 02-11-2024 11:25-0400 Body weight 88 kg Lindsey Raymundo MD Work Phone: [facility] 02-11-2024 11:25-0400 Diastolic blood pressure 69 mm[Hg] Lindsey Raymundo MD Work Phone: [facility] 02-11-2024 11:25-0400 Systolic blood pressure 127 mm[Hg] Lindsey Raymundo MD Work Phone: [facility] 01-28-2024 13:42-0400 Body height 158.8 cm Joleen Hemmer PA Work Phone: [facility] [employer] 01-28-2024 13:42-0400 Body mass index (BMI) [Ratio] 35.53 kg/m2 Joleen Hemmer PA Work Phone: [facility] [employer] 01-28-2024 13:42-0400 Body weight 89.54 kg Joleen Hemmer PA Work Phone: [facility] [employer] 01-28-2024 13:42-0400 Diastolic blood pressure 72 mm[Hg] Joleen Hemmer PA Work Phone: [facility] [employer] 01-28-2024 13:42-0400 Heart rate 73 /min Joleen Hemmer PA Work Phone: [facility] [employer] 01-28-2024 13:42-0400 Respiratory rate 16 /min Joleen Hemmer PA Work Phone: [facility] [employer] 01-28-2024 13:42-0400 SaO2% (BldA) [Mass fraction] 96 % Joleen Hemmer PA Work Phone: [facility] [employer] 01-28-2024 13:42-0400 Systolic blood pressure 124 mm[Hg] Joleen Hemmer PA Work Phone: [facility] [employer] 02-08-2022 13:05-0400 Body height 158.75 cm Staci Esquivel Other [employer] Other 02-08-2022 13:05-0400 Body mass index (BMI) [Ratio] 33.29 kg/m2 Staci Esquivel Other [employer] Other 02-08-2022 13:05-0400 Body temperature 101 [degF] Staci Esquivel Other [employer] Other 02-08-2022 13:05-0400 Body weight 83.92 kg Staci Esquivel Other [employer] Other 02-08-2022 13:05-0400 Respiratory rate 18 /min Staci Esquivel Other [employer] Other 02-08-2022 13:05-0400 SaO2% (BldA) [Mass fraction] 95 % Staci Esquivel Other [employer] Other Encounters Encounter Date Encounter Type Care [...] 01-26-2024 End: 01-26-2024 Bamboo flowsheet Yaa Duke COMPRESSOR TECHNICIAN Work Phone: [facility] Start: 01-26-2024 End: 01-26-2024 Bamboo flowsheet Yaa Lopez Aplalmaz COMPRESSOR TECHNICIAN Work Phone: [facility] Start: 01-26-2024 End: 01-26-2024 Office outpatient visit 25 minutes Yaa Duke COMPRESSOR TECHNICIAN Work Phone: [facility] Comment on [...] Not Available Start: 09-17-2023 End: 09-17-2023 ambulatory [facility] Start: 08-20-2023 End: 08-20-2023 ambulatory YAA B [...] 02-08-2022 End: 02-08-2022 ambulatory Staci Esquivel Other [employer] Other Start: 02-08-2022 Office outpatient ne w 20 minutes Staci Esquivel [facility] [place] Start: 01-31-2022 End: 02-01-[address] DARYL BELTRAN . Facility:[facility] Start: 12-07-2021 End: 12-08-[address] SVEN PENG Facility:[facility] Start: 10-16-2021 End: 10-17-2021 ambulatory PHYSICIAN UNKNOWN Facility:[facility] Start: 09-07-2021 End: 09-08-[address] SVEN PENG Facility:[facility] Start: 09-05-2021 End: 09-06-[address] SVEN PENG Facility:[facility] Procedures Date Procedure Procedure Detail Performing Clinician Start: 02-04-2024 AUDITORY FUNCTION TESTS Afia Anton CCC-A Work Phone: Start: 01-28-2024 Urnls dip stick/tablet rgnt non-auto w/o micrscp Joleen Courtney PA Work Phone: Start: 01-26-2024 Arthrocentesis aspir&/inj major jt/bursa w/o us Yaa Duke COMPRESSOR TECHNICIAN Work Phone: Start: 10-20-2019 End: 07-14-2023 H/O: artificial joint History of artificial joint Yaa Duke NP Work Phone: Plan of Treatment Date Care Activity Detail Author Start: 12-30-2024 End: 12-30-2024 Patient encounter procedure 12/30/2024 11:00 AM EDT Office Visit [facility] [address] [place] [id number] Teodora Chadwick DO [address] [place] [address] [facility] Start: 12-22-2024 Medicare Annual Wellness (AWV) Medicare Annual Wellness (AWV) [facility] Start: 03-02-2024 End: 03-02-2024 Patient encounter procedure 03/02/2024 11:15 AM EST Office Visit [facility] [address] [place] [address] Annette Bright MD [address] [place] [address] [facility] Start: 02-11-2024 End: 02-11-2024 Patient encounter procedure [facility] Comment on above: Arrived Start: 02-04-2024 End: 02-04-2024 Clinical Support [facility] Comment on above: Arrived Start: 01-28-2024 End: 01-28-2024 Patient encounter procedure 01/28/2024 1:30 PM EDT Office Visit [facility] [address] [place] [address] Joleen Courtney PA [address] [place] [address] Arrived [facility] Comment on above: Arrived Start: 01-26-2024 End: 01-26-2024 Patient encounter procedure 01/26/2024 10:45 AM EDT Office Visit [facility] [address] [place] [address] Yaa Duke, MAILE [address] [place] [address] Arrived [facility] Comment on above: Arrived Start: 12-21-2023 Influenza vaccination Influenza Vacc ine (#1) [facility] URINARY TRACT INFECTION (HTRX) URINARY TRACT INFECTION (HTRX) Lab Routine Urine abnormality Abnormal urinalysis Ordered: 01/28/2024 [facility] Work Phone: Comment on above: Ordered: 01/28/2024 Immunizations Immunization Date Immunization Notes Care Provider Fa cility 01-28-2024 Influenza, High-dose Seasonal, Quadrivalent, Preservative Free Joleen DALEY Work Phone: [facility] 02-05-2023 Influenza, Seasonal, Quadrivalent, Adjuvanted Joleen Courtney PA Work Phone: [facility] 02-05-2023 influenza virus vacc ine, unspecified formulation Yaa Duke COMPRESSOR TECHNICIAN Work Phone: [facility] 04-05-2022 diphtheria, tetanus toxoids and pertussis vaccine Yaa Duke COMPRESSOR TECHNICIAN Work Phone: [facility] 03-25-2022 influenza, high dose seasonal, preservative-free Yaa Duke COMPRESSOR TECHNICIAN Work Phone: [facility] 01-25-2021 Influenza, High-dose Seasonal, Quadrivalent, Preservative Free Yaa Duke COMPRESSOR TECHNICIAN Work Phone: [facility] 02-25-2020 Influenza, Seasonal, Quadrivalent, Adjuvanted Yaa Duke COMPRESSOR TECHNICIAN Work Phone: [facility] 10-11-2019 pneumococcal polysaccharide vaccine, 23 valent Yaa Duke COMPRESSOR TECHNICIAN Work Phone: [facility] 06-06-2019 zoster vaccine yesenia Duke COMPRESSOR TECHNICIAN Work Phone: [facility] 01-28-2019 influenza, high dose seasonal, preservative-free Yaa Duke COMPRESSOR TECHNICIAN Work Phone: [facility] 02-13-2018 influenza, high dose seasonal, preservative-free Yaa Duke COMPRESSOR TECHNICIAN Work Phone: [facility] 01-08-2018 pneumococcal conjuga te vaccine, 13 valent Yaa Duke COMPRESSOR TECHNICIAN Work Phone: [facility] 02-12-2017 Influenza, High-dose Seasonal, Quadrivalent, Preservative Free Yaa Duke COMPRESSOR TECHNICIAN Work Phone: [facility] 01-27-2002 zoster vaccine, live Yaa garcia COMPRESSOR TECHNICIAN Work Phone: [facility] Healthcare Payers Date Payer Category Payer Medicare [employer] MEDICARE ADVANTAGE [employer] MEDICARE [id number] 2020-Present [address] [place] [id number] 2020 Medicare (Managed Care) [employer] EDICARE ADVANTAGE [id number] 1959 Private Health Insurance [id number] 1950 Unknown [id number] .[id number] 1950 Unknown [id number] .[id number] 1950 Unknown [id number] .2.593 1950 Unknown [id number] .2.593 1950 Unknown [id number] [id number] .2.593 1950 Unknown [id number] .2.593 1950 Unknown [id number] [id number] .2.593 1950 Unknown [id number] 2.16.840.1.921006.3.579 .2.593 1948 Unknown [id number] 2.16.840.1.220690.3.579 .2.125 1948 Unknown [id number] 2.16.840.1.179874.3.579 .2.125 1948 Unknown [id number] 2.16.840.1.230967.3.579 .2.125 1948 Unknown [id number] 2.16.840.1.650200.3.579 .2.125 1948 Unknown [id number] 2.16.840.1.067351.3.579 .2.125 1948 Unknown [id number] 2.16.840.1.669636.3.579 .2.125 1948 Unknown [id number] 2.16.840.1.575651.3.579 .2.125 1948 Unknown [id number] 2.16.840.1.644848.3.579 .2.125 1948 Unknown [id number] 2.16.840.1.261308.3.579 .2.125 1948 Unknown [id number] 2.16.840.1.396310.3.579 .2.125 1948 Unknown [id number] 2.16.840.1.130585.3.579 .2.125 1948 Unknown [id number] 2.16.840.1.461990.3.579 .2.1259 1948 Unknown [id number] 2.16.840.1.707202.3.579 .2.9 1948 Unknown [id number] 2.16.840.1.723633.3.579 .2.9 1948 Unknown [id number] 2.16.840.1.407311.3.579 .2.9 1948 Unknown [id number] 2.16.840.1.600164.3.579 .2.9 1948 Unknown [id number] 2.16.840.1.244571.3.579 .2.1259 Social History Date Type Detail Facility Start: 05-18-2023 End: 07-14-2023 Sex Assigned At [facility] Start: 12-03-2022 Tobacco smoking stat [facility] Ex-smoker [facility] Start: 11-19-1966 End: 04-21-2007 [...] Osteopenia 04/04/2018 Overactive bladder 04/04/2018 Primary hypertension ([facility]) 05/11/2018 Osteoarthritis of spine with radiculopathy, lumbar region 11/10/2022 Primary osteoarthritis of both knees 11/10/2022 Primary osteoarthritis of left hip 11/10/2022 Punctate keratitis of both eyes 11/10/2022 Sensorineural hearing loss, bilateral 02/24/2018 Sjogren's syndrome ([facility]) 04/27/2021 Multiple perforations of right tympanic membrane 05/19/2023 Left ventricular hypertrophy 09/24/2021 History of TIA (transient ischemic attack) 07/14/2023 History of left hip replacement 07/14/2023 Resolved Ambulatory Problems Diagnosis Date Noted Gastroesophageal reflux disease 07/29/2018 History of artificial joint 10/20/2019 Obesity 08/04/2018 Reactive airway disease ([facility]) 10/26/2020 TIA (transient ischemic attack) 11/10/2022 Perforation [...] COLONOSCOPY 2013 FOOT SURGERY multiple foot sx, [id number] HYSTERECTOMY 1998 IR ABLATION BONE 12/15/2018 LT RFA T12-L3 IR INJECTION NERVE BLOCK 04/09/2018 L2-L5 nerve blocks IR INJECTION NERVE BLOCK Left 07/21/2018 T12-L3 nerve blocks LUMBAR EPIDURAL INJECTION 04/03/2021 OTHER SURGICAL HISTORY 1985 [employer], [place] PARTIAL HIP REPLACEMENT 08/2018 TOE SURGERY TONSILLECTOMY [...] tod hearing aids documented in this encounter [facility] 02-04-2024 History of Present illness Narrative History: [...] Type Ad tympanogram documented in this encounter [facility] 01-28-2024 History of Present illness Narrative Images [...] weeks. 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 documented in this encounter [facility] 01-26-2024 History of Present illness Narrative Associated Order(s): L Inj/Asp: R knee Post-Procedure Diagnose(s): Arthritis of right knee Subjective Patient ID: Teodora Daily is a 74 y.o. female. RT Knee *Wants inj Last saw Caren 09/17/23 for the RT knee and was referred to [facility] for eval for visco supplementation, [...] for her back, sees pain management at [facility]. Admits ice prn. Also uses heat and voltaren occas with some relief, but gets the most relief with ice. Good rom, pain with ROM. Denies waking at night. [place]: XR [facility] 08/20/23, heat, aleve, IBU, depo injection 04/23/22, depo injection 10/29/22, MRI [facility] 12/17/22, Depo injx 01/07/23 and [...] tolerated, f/u prn documented in this encounter [facility] 09-17-2023 Note DC Cardiology [facility] Subjective Teodora Daily is a 73 [...] No swelling. Cervical (more content not included)... [facility] 02-08-2022 Evaluation note Encounter Date Diagnosis Assessment [...] no improvement in 2 to 3 days [employer] Other 10-13-2022 NoteCONSULTATION CONSULTATION DATE: 01/31/2022 HISTORY [...] a p.r.n. basis at the patient's discretion.[facility] Right knee pain, unspecified chronicity- [...] hypertrophic cardiomyopathy Surgical History Hip Replacement 2017 [employer] Other Summary Purpose Family History No Family [...] Procedures L Inj/Asp: R knee [employer] [address] [place] [address] Referral ID Status Reason Start Date Expiration Date V isits Requested Visits Authorized [id number] Authorized 01/26/2024 07/24/2024 1 1 Additional Source Comments INFORMATION SOURCE (unrecogn ized section and content) DATE CREATED AUTHOR 05/13/2021 [facility] dical Specialist DATE CREATED AUTHOR AUTHOR'S ORGANIZ ATION 10/23/2021 [facility] DATE CREATED AUTHOR AUTHOR'S ORGANIZ ATION 08/03/2022 [facility] DATE CREATED AUTHOR AUTHOR'S ORGANIZ ATION 02/13/2024 [facility] dical Specialists EPIC DATE CREATED AUTHOR AUTHOR'S ORGANIZ ATION 02/16/2024 [facility] REASON FOR VISIT (unrecogniz ed section [...] Care Teams (unrecognized sec tion and content) Environmental Services Lead Relationship Specialty Start Date End Date Sven Peng MD [address] [place] [address] PCP - [employer] 04/21/20 Sven Peng MD [address] [place] [address] PCP - General Internal Medicine 08/27/22 Environmental Services Lead Relationship Specialty Start Date End Date Sven Peng MD [address] [place] [address] PCP - [employer] 04/21/20 Sven Peng MD [address] [place] [address] PCP - General Internal Medicine 08/27/22 Environmental Services Lead Relationship Specialty Start Date End Date Sven Peng MD [address] [place] [address] PCP - [employer] 04/21/20 Sven Peng MD [address] [place] [address] PCP - General Internal Medicine 08/27/22 Environmental Services Lead Relationship Specialty Start Date End Date Sven Peng MD [address] [place] [address] PCP - [employer] 04/21/20 Sven Peng MD [address] [place] [address] PCP - General Internal Medicine 08/27/22 Environmental Services Lead Relationship Specialty Start Date End Date Sven Peng MD [address] [place] [address] PCP - [employer] 04/21/20 Sven Peng MD [address] [place] [address] PCP - General Internal Medicine 08/27/22 FOR [...] BE BASED ON THE PRIMARY CLINICAL RECORDS. [facility] [employer] [facility]. provides no warranty or guarantee of the accuracy or completeness of information in this document.
== END 2024-03-23 12:52 | disposition home or self-care (01) ==
LOC: PM 12:51
PROVIDERS: PCP Internal Medicine; Visit Provider Anesthesiology Pain Medicine
DX: G89.4 Chronic pain syndrome (principal); M79.18 Myalgia, other site
CPT/HCPCS: G0463

== ENCOUNTER 2024-03-24 09:02 | Outpatient (OUT) | payer MEDICARE, SELFPAY ==
--- OUTSIDE RECORDS SUMMARY | 2024-03-24 09:22 | XMS_ITS | CCD ---
Author Organization [facility] Care Team Providers Care [employer] Guid[employer] Counselor Name Role Phone UNKNOWN, PHYSICIAN Referring Unavailable [...] Drug Allergy 08-01-19 19 hives, Itching, Rash [facility] [employer] Other (1 source) Sulfacetamide Drug Allergy neck swelled, hives [facility] [employer] Other (2 sources) oxyCODONE Drug Allergy [facility] Repository (2 sources) Sulfonamides (Antibiotic) Drug allergy (disorder) [facility] Repository (11 sources) HYDROcodone Drug Allergy 08-01-19 19 [facility] Work Phone: (11 sources) Sulfonamides (Antibiotic) Drug Intolerance 08-01-19 19 Anaphylaxis, Hives, Itching, Rash, Shortness of breath, Swelling [facility] (1 source) Sulfonamides (Antibiotic); Translations: [SULFA (SULFONAMIDE ANTIBIOTICS)] Propensity to adverse reactions to drug (disorder) 12-26-19 22 [facility] Repository Medications Current Medications Medication Drug [...] 04-05-2022 Episodic Other aftercare (1 source) Other care home (current) drug therapy; Translations: [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 [facility]inal[facility] macro (dipstick) panel (U)on 01-28-2024 Bilirubin, UA Negative Negative - 4(70) +++ mg/dL [facility] Blood, UA Negative Negative - 50 Nas/mcL [facility] Clarity, UA Clear [facility] [employer] re Color, UA Yellow [facility] [email or web address] e Glucose, UA Negative Negative - 2000(110) ++++ mg/dL [facility] Interpretation and review of laboratory results Abnormal [facility] [employer] re Ketones, UA Negative Negative - 160(16) ++++ mg/dL [facility] Leukocytes, UA Trace Negative - 500+++ Aisha/mcL [facility] Nitrite, UA Negative Negative - Positive [facility] pH, UA 6.5 5 - 9 [facility] [email or web address] Protein, UA Negative Negative - 2000(20) ++++ mg/dL [facility] Spec Grav, UA 1.005 1 - 1.03 [facility] Urobilinogen, UA 1.0 0.2 - 12 mg/dL [facility] No Panel Informationon 01-25 Yaa [...] Consent was given by the patient. [facility] [email or web address] [facility] 36on 01-19-2024 36 Pt called back and w as informed by [facility] 36on 2024 36 Stress test results From: Chris Garcia MD Sent: 01/14/2024 1:24 AM EDT To: Lakisha Castillo MA Subject: RE: Scan Her stress test was normal. Follow-up in the next 6 months. ----- Message ----- Left message to call us back [facility] Telephoneon 2024 Telephone [id number] Teodora Daily Jessica 1950 F Date Provider Department Center 2024 [id number], TANA MATTHEW [facility] Family History Problem Relation Age of Onset Other Mother Hypertrophic cardiomyopathy Sister Stroke Sister Other Sister Hypertrophic cardiomyopathy Brother Family Status - Relation Status Age at Mother Sister Brother [facility] 36on 11-06-2023 36 Regarding echo resul t from 10/21/2023: MD Lakisha London MA Her echo was ok, I want her to get a stress test (dx shortness of breath), if she cannot do treadmill then [employer] nuclear. Spoke with patient and made her aware. She agreed to treadmill stress test. Order faxed to [facility]. [facility] Office Visiton 09-17-2023 Follow-up visit [id number] AbimbolaTeodora Jessica 1950 Date Provider Department Center 09/17/2023 367-CHRIS GARCIA Family History Problem Relation Age of Onset Other Mother Hypertrophic cardiomyopathy Sister Stroke Sister Other Sister Hypertrophic cardiomyopathy Brother Family Status - Relation Status Age at Mother Sister Brother Level of Service:03166 AL OFFICE/OUTPATIENT ESTABLISHED MOD MDM 30 MIN [facility] FREE T3on 07-24-2022 FREE T3 2.66 pg/mlL Normal 2.18-3.98 [facility] Comment on above: Performed By: #### T SH, FT3 #### [facility] [address] [address] [address] Adolph Clinton FREE T4on 07-24-2022 Free T4 [Mass/Vol] 0.85 ng/dL Normal 0.76-1.46 [facility] Comment on above: Performed By: #### F T4 #### [facility] [address] [place], [place] [address] Dr. Adolph Clinton TSHon 07-24-2022 TSH 2.124 uIU/mL Normal 0.358-3.740 [facility] Comment on above: Performed By: #### T SH, FT3 #### [facility] [id number] Adolph Clinton XR FINGER MIN 2 [...] JESUS FELIZ Date: 2022-04-05 19:19 Normal [facility] COVID Quick Testingon 2021 Result Negative [employer] Other Quick Fluon 02-08-2022 FLUAV Ab CF (S) [Titer] Negative [employer] Other FLUBV Ab CF (S) [Titer] Negative [employer] Other MG MAMM SCREEN 3D TOD CADon 12-07-2021 MG MAMM SCREEN 3D TOD CAD Patient: TEODORA DAILY Exam Date: 12/07/2021 : 1950 Gender:F Ordering : DR SVEN PENG M.D. Admission #: [id number] Family : DR. TEODORA CHADWICK D.O. Order #: [id number] CLICK HERE TO VIEW EXAM RADIOLOGY REPORT [...] uterine cancer at age 58. LOCATION: [facility] BREAST COMPOSITION: Scattered areas fibroglandular density. [...] Salguero M.D. on 12/07/2021 at 12:13 Normal [facility] XR DEXA BONE DENSITYon 12-07 [...] by: SEBASTIAN SALGUERO Date: 2021-12-07 15:10 Normal [facility] MRI CARDIAC W WO CONTRASTon 10-16-2021 MRI CARDIAC W WO CONTRAST [facility] Department of Radiology [address] [place] [id number] ===== Patient Name: TEODORA DAILY : [...] 2. Electronically signed: Kane Solomon. Transcribed by: [email or web address], User Resident: Electronically Signed by: KANE SOLOMON @ 10/18/2021 02:11 PM Normal [facility] CREATININEon 09-07-2021 Creatinine [Mass/Vol] 0.77 mg/dL Normal 0.55-1.02 [facility] Comment on above: Performed By: #### C IDALIA #### [facility] [address] [place] [address] Dr. Adolph Clinton EGFR-AF BURKINAN >60 Normal >=60 [facility] Comment on above: Performed By: #### C IDALIA #### [facility] [address] [place] [address] Dr. Adolph Clinton EGFR-NON AF BURKINAN >60 Normal >=60 [facility] Comment on above: Performed By: #### C IDALIA #### [facility] [address] [place] [address] HEAD WO W CONon 2 CT HEAD WO W CON EXAMINATION: CT HEAD WO W CON HISTORY: Transient cerebral ischemia COMPARISON: None. TECHNIQUE: Multiple computed tomograms of the head were obtained with and without intravenous contrast enhancement. 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 The vasculature about the [place] appears grossly intact. IMPRESSION: There [...] by: KAILEE GARCIA Date: 2021-09-07 13:44 Normal [facility] ECHOCARDIO M/2D COMPLETEon 0 09-05-2021 ECHOCARDIO M/2D COMPLETE Patient: TEODORA DAILY Exam Date: 09/05/2021 : 1950 Gender:F Ordering : DR SVEN PENG M.D. Admission #: [id number] Family : Order #: [id number] CLICK HERE TO VIEW EXAM ECHOCARDIOGRAM REPORT [...] Area(A4C): 12.70 cm2 Left Atrium Systolic Volume(A2C): 61992 mm3 Left Atrium Systolic Volume(A4C): 12484 mm3 Mitral Valve MV E to A [...] Garcia M.D. on 09/05/2021 at 20:08 Normal [facility] Q - DEJUAN SCREEN IFA W/RFL TIT ER IFAon 05-10-2021 DEJUAN SCREEN, IFA Negative Normal NEGATIVE [facility] Communications Department Chair Comment on above: Order Comment: [facility] Testing performed at: [employer] [employer] [facility], [address] [facility], [address] [place], [address], Clearing Supervisor: Pedro Asencio MD [facility] Collection Date/Time: [facility] [...] AC-0: Negative International Consensus on DEJUAN Patterns (https://doi.org/10.1515/rkby-0844-1878) For additional information, please refer to http://education.[employer]/faq/TWJ330 (This link is being provided for informational/ educational purposes only.) Performed By: #### 7 832X, 249X #### [facility] [address] [place] [address] Q - SJOGREN'S ABS (SS-A,SS-B )on 05-10-2021 SJOGREN'S ANTIBODY (SS-A) <1.0 NEG Normal <1.0 NEG [facility] Communications Department Chair Comment on above: Order Comment: [facility] performed at: [employer] [employer] [facility], [address] , [address] [place], [address], Clearing Supervisor: Pedro Asencio MD [facility] Collection Date/Time: [facility] Results Received Date/Time: [facility] Reported Date/Time: Performed By: #### 7 832X, 249X #### [facility] [address] [place] [address] SJOGREN'S ANTIBODY (SS-B) <1.0 NEG Normal <1.0 NEG [facility] Communications Department Chair Comment on above: Order Comment: [facility] performed at: [employer] [employer], [address] [place] [address], [address] [place] [address], [address] [place] [address], Clearing Supervisor: Pedro Asencio MD [facility] Collection Date/Time: [facility] Results Received Date/Time: [facility] Reported Date/Time: Performed By: #### 7 832X, 249X #### [facility] [address] [place] [address] Q - DEJUAN CASC [id number] CHROMATIN (NUCLEOSOMAL) ANTIBODY <1.0 NEG Normal <1.0 NEG [facility] Comment on above: Order Comment: [facility] Testing performed at: [employer] [facility], [address] [place] [address], [address] [place] [address], [address] [place] [address], Clearing Supervisor: Pedro Asencio MD [facility] Collection Date/Time: [id number] [facility] Results Received Date/Time: [facility] Reported Date/Time: [...] 12% Sjogren's syndrome and 8% polymyositis. Ribonucleoprotein (AUTOMOBILE SPRING REPAIRER) antibodies are to AUTOMOBILE SPRING REPAIRER A and/or AUTOMOBILE SPRING REPAIRER 68kD proteins; antibodies to one or both are present in >80% MCTD, 22% to 48% SLE, 14% systemic sclerosis, 12% Sjogren's and 8% polymyositis. Sm/AUTOMOBILE SPRING REPAIRER antibodies are directed to epitopes formed in a complex of Sm and AUTOMOBILE SPRING REPAIRER; antibodies to the Sm/AUTOMOBILE SPRING REPAIRER complex are present in 54% to 94% MCTD, 30% SLE, 4% systemic sclerosis, and 9% Sjogren's and polymyositis. Sm antibody is present in 20% to 30% SLE, 8% MCTD, 10% polymyositis, 0% systemic sclerosis and 4% Sjogren's syndrome. Double stranded DNA, Chromatin, Ribonucleoprotein, Sm/AUTOMOBILE SPRING REPAIRER complex and Sm antibodies are present in <2% of normal blood donors. The [facility] does not rule out autoimmune disease characterized by other autoantibody specificities such as rheumatoid arthritis, autoimmune hepatitis, primary biliary cholangitis, autoimmune thyroiditis, Champaign's disease, pernicious anemia, autoimmune neuropathies, vasculitis, celiac disease and bullous disease. Please contact your local [facility] laboratory if you are interested in additional testing. Performed By: #### % IN7, % #### [facility] [address] [place] [address] DNA (DS) ANTIBODY <1 Normal [facility] Comment on above: Order Comment: [facility] Testing performed at: [employer] [facility], [address] [place] [address], [address] [place] [address], [address], Clearing Supervisor: Pedro Asencio MD [facility] Collection Date/Time: [facility] Results Received Date/Time: [facility] Reported Date/Time: Result Comment: IU/m L Interpretation < or = 4 Negative 5-9 Indeterminate > or = 10 Positive Performed By: #### % IN, % #### [facility] [address] [place] [address] AUTOMOBILE SPRING REPAIRER ANTIBODY 1.0 POS Abnormal <1.0 NEG [facility] Communications Department Chair Comment on above: Order Comment: [facility] Testing performed at: [employer] [facility], [address] [facility], [address] [place] [address], [address], Clearing Supervisor: Pedro Asencio MD [facility] Collection Date/Time: [facility] Results Received Date/Time: [facility] Reported Date/Time: Performed By: #### % IN7, % #### [facility] [address] [place] [address] SM ANTIBODY <1.0 NEG Normal <1.[address] [facility] Special[facility] Comment on above: Order Comment: [facility] Testing performed at: [employer] [facility], [address] [place] [address], [address] [place] [address], [address] [place] [address], Clearing Supervisor: Pedro Asencio MD [facility] Collection Date/Time: [facility] Results Received Date/Time: [facility] Reported Date/Time: Performed By: #### % IN7, % #### [facility] Default [address] [place] [address] SM/AUTOMOBILE SPRING REPAIRER ANTIBODY <1.0 NEG Normal <1.0 NEG [facility] Communications Department Chair Comment on above: Order Comment: [facility] performed at: [employer] [facility], [address] [place] [address], [address] [place] [address], [address] [place] [address], Clearing Supervisor: Pedro Asencio MD [facility] Collection Date/Time: [facility] Results Received Date/Time: [facility] Reported Date/Time: Performed By: #### % IN7, % #### [facility] [address] [place] [address] Q - DEJUAN MULTIPLEX W/ REFLEX TO 11 ANTIBODY CASCADEon 05-01-2021 ANACHOICE(R) SCREEN Positive Abnormal NEGATIVE [facility] Comment on above: Order Comment: [facility] performed at: [employer] [facility], [address] [place] [address], [address] [place] [address], [address] [place] [address], Clearing Supervisor: Pedro Asencio MD [facility] Collection Date/Time: [id number] [facility] Results Received Date/Time: [facility] Reported Date/Time: Result Comment: A po sitive DEJUAN, Multiplex reflexes to the 3 Tiered Multiplex 11 Antibody [facility]. Testing in the [facility] stops at the first positive result and does not preclude additional positive results. Further laboratory testing may be considered if clinically indicated. For additional information, please refer to http://education.[employer]/faq/XDW022 (This link is being provided for informational/ educational purposes only.) Performed By: #### % IN7, %, #### [facility] [address] [place] [address] Q - AUTOMOBILE SPRING REPAIRER INTERPon 05-01-2021 INTERPRETATION SEE NOTE Normal [facility] Communications Department Chair Comment on above: Order Comment: [facility] performed at: [employer] [employer] [facility], [address] [facility], [address] [place], [address], Clearing Supervisor: Pedro Asencio MD [facility] Collection Date/Time: [id number] [facility] Results Received Date/Time: [facility] Reported Date/Time: Result Comment: AUTOMOBILE SPRING REPAIRER antibody is found in patients with mixed [...] IN7, %, #### [facility] [address] [place] [address] Vital Signs Date Time Vital Sign Value Performing Clinician Facility 02-11-2024 11:25-0400 Body height 158.8 cm Lindsey Raymundo MD Work Phone: [facility] 02-11-2024 11:25-0400 Body mass index (BMI) [Ratio] 34.92 kg/m2 Lindsey Raymundo MD Work Phone: [facility] 02-11-2024 11:25-0400 Body weight 88 kg Lindsey Raymundo MD Work Phone: [facility] 02-11-2024 11:25-0400 Diastolic blood pressure 69 mm[Hg] Lindsey Raymundo MD Work Phone: [facility] 02-11-2024 11:25-0400 Systolic blood pressure 127 mm[Hg] Linsdey Raymundo MD Work Phone: [facility] 01-28-2024 13:42-0400 Body height 158.8 cm Joleen Hemmer PA Work Phone: [facility]fer 01-28-2024 13:42-0400 Body mass index (BMI) [Ratio] 35.53 kg/m2 Joleen Hemmer PA Work Phone: [facility] 01-28-2024 13:42-0400 Body weight 89.54 kg Joleen Hemmer PA Work Phone: [facility] 01-28-2024 13:42-0400 Diastolic blood pressure 72 mm[Hg] Joleen Hemmer PA Work Phone: [facility] 01-28-2024 13:42-0400 Heart rate 73 /min Joleen Hemmer PA Work Phone: [facility] 01-28-2024 13:42-0400 Respiratory rate 16 /min Joleen Hemmer PA Work Phone: [facility] 01-28-2024 13:42-0400 SaO2% (BldA) [Mass fraction] 96 % Joleen Hemmer PA Work Phone: [facility] 01-28-2024 13:42-0400 Systolic blood pressure 124 mm[Hg] Joleen Hemmer PA Work Phone: [facility] 02-08-2022 13:05-0400 Body height 158.75 cm Staci Esquivel Other [employer] Other 02-08-2022 13:05-0400 Body mass index (BMI) [Ratio] 33.29 kg/m2 Staci Esquivel Other [employer] Other 02-08-2022 13:05-0400 Body temperature 101 [degF] Staci Esquivel Other [employer] Other 02-08-2022 13:05-0400 Body weight 83.92 kg Staci Esquivel Other [employer] Other 02-08-2022 13:05-0400 Respiratory rate 18 /min Staci Esquivel Other [employer] Other 02-08-2022 13:05-0400 SaO2% (BldA) [Mass fraction] 95 % Staci Esquivel Other [employer] Other Encounters Encounter Date Encounter Type Care [...] Start: 01-28-2024 End: 01-28-2024 Bamboo flowsheet Joleen oCurtney PA Work Phone: [facility] Start: [...] 01-26-2024 End: 01-26-2024 Bamboo flowsheet Yaa Duke [employer] Work Phone: [facility] Start: 01-26-2024 End: 01-26-2024 Bamboo flowsheet Yaa Lopez Aplalmaz [employer] Work Phone: [facility] Start: 01-26-2024 End: 01-26-2024 Office outpatient visit 25 minutes Yaa Duke [employer] Work Phone: [facility] Comment on [...] Not Available Start: 09-17-2023 End: 09-17-2023 ambulatory [facility] Start: 08-20-2023 End: 08-20-2023 ambulatory YAA B [...] 02-08-2022 End: 02-08-2022 ambulatory Staci Esquivel Other [employer] Other Start: 02-08-2022 Office outpatient ne w 20 minutes Staci Esquivel [facility] [place] Start: 01-31-2022 End: 02-01-[address] DARYL BELTRAN . Facility:[facility] Start: 12-07-2021 End: 12-08-[address] SVEN PENG Facility:[facility] Start: 10-16-2021 End: 10-17-2021 ambulatory PHYSICIAN UNKNOWN Facility:[facility] Start: 09-07-2021 End: 09-08-[address] SVEN PENG Facility:[facility] Start: 09-05-2021 End: 09-06-[address] SVEN PENG Facility:[facility] Procedures Date Procedure Procedure Detail Performing Clinician Start: 02-04-2024 AUDITORY FUNCTION TESTS Afia Anton CCC-A Work Phone: Start: 01-28-2024 Urnls dip stick/tablet rgnt non-auto w/o micrscp Joleen Courtney PA Work Phone: Start: 01-26-2024 Arthrocentesis aspir&/inj major jt/bursa w/o us Yaa Duke [employer] Work Phone: Start: 10-20-2019 End: 07-14-2023 H/O: artificial joint History of artificial joint Yaa Duke NP Work Phone: Plan of Treatment Date Care Activity Detail Author Start: 12-30-2024 End: 12-30-2024 Patient encounter procedure 12/30/2024 11:00 AM EDT Office Visit [facility] [address] [place] [id number] Teodora Chadwick DO [address] [place] [address] [facility] Start: 12-22-2024 Medicare Annual Wellness (AWV) Medicare Annual Wellness (AWV) [facility] Start: 03-02-2024 End: 03-02-2024 Patient encounter procedure 03/02/2024 11:15 AM EST Office Visit [facility] [address] [place] [address] Annette Bright MD [address] [place] [address] [facility] Start: 02-11-2024 End: 02-11-2024 Patient encounter procedure [facility] Comment on above: Arrived Start: 02-04-2024 End: 02-04-2024 Clinical Support [facility] Comment on above: Arrived Start: 01-28-2024 End: 01-28-2024 Patient encounter procedure 01/28/2024 1:30 PM EDT Office Visit [facility] [address] [place] [address] Joleen Courtney PA [address] [place] [address] Arrived [facility] Comment on above: Arrived Start: 01-26-2024 End: 01-26-2024 Patient encounter procedure 01/26/2024 10:45 AM EDT Office Visit [facility] [address] [place] [address] Yaa Duke, MAILE [address] [place] [address] Arrived [facility] Comment on above: Arrived Start: 12-21-2023 Influenza vaccination Influenza Vacc ine (#1) [facility] URINARY TRACT INFECTION (HTRX) URINARY TRACT INFECTION (HTRX) Lab Routine Urine abnormality Abnormal urinalysis Ordered: 01/28/2024 [facility] Work Phone: Comment on above: Ordered: 01/28/2024 Immunizations Immunization Date Immunization Notes Care Provider Fa cility 01-28-2024 Influenza, High-dose Seasonal, Quadrivalent, Preservative Free Joleen DALEY Work Phone: [facility] 02-05-2023 Influenza, Seasonal, Quadrivalent, Adjuvanted Joleen Courtney PA Work Phone: [facility] 02-05-2023 influenza virus vacc ine, unspecified formulation Yaa Duke [employer] Work Phone: [facility] 04-05-2022 diphtheria, tetanus toxoids and pertussis vaccine Yaa Duke [employer] Work Phone: [facility] 03-25-2022 influenza, high dose seasonal, preservative-free Yaa Duke [employer]ER Work Phone: [facility] 01-25-2021 Influenza, High-dose Seasonal, Quadrivalent, Preservative Free Yaa Duke [employer]ER Work Phone: [facility] 02-25-2020 Influenza, Seasonal, Quadrivalent, Adjuvanted Yaa Duke [employer]KER Work Phone: [facility] 10-11-2019 pneumococcal polysaccharide vaccine, 23 valent Yaa Duke [employer]KER Work Phone: [facility] 06-06-2019 zoster vaccine yesenia Duke [employer] Work Phone: [facility] 01-28-2019 influenza, high dose seasonal, preservative-free Yaa Duke [employer]ER Work Phone: [facility] 02-13-2018 influenza, high dose seasonal, preservative-free Yaa Duke [employer]KER Work Phone: [facility] 01-08-2018 pneumococcal conjuga te vaccine, 13 valent Yaa Duke [employer]KER Work Phone: [facility] 02-12-2017 Influenza, High-dose Seasonal, Quadrivalent, Preservative Free Yaa Duke [employer] Work Phone: [facility] 01-27-2002 zoster vaccine, live Yaa garcia [employer] Work Phone: [facility] Healthcare Payers Date Payer Category Payer Medicare HU[employer]NA MEDICARE ADVANTAGE HU[employer]NA MEDICARE [id number] 2020-Present [address] [place] [id number] 2020 Medicare (Managed Care) HU[employer]NA EDICARE ADVANTAGE [id number] 5 1959 Private Health Insurance [id number] 1950 Unknown [id number] [id number] .2.647 1950 Unknown [id number] 2.16840.1.695926.3.579 .2.593 1950 Unknown [id number] 2.16840.1.618695.3.579 .2.593 1950 Unknown [id number] 2.840.1.441051.3.579 .2.593 1950 Unknown [id number] 2.16.840.1.428504.3.579 .2.593 1950 Unknown [id number] 2.16.840.1.511948.3.579 .2.593 1948 Unknown [id number] 2.16.840.1.233180.3.579 .2.593 1948 Unknown [id number] 2.16.840.1.062669.3.579 .2.593 1948 Unknown [id number] 2.16.840.1.740099.3.579 .2.125 1950 Unknown [id number] 2.16.840.1.973622.3.579 .2.125 1948 Unknown [id number] 2.16.840.1.773469.3.579 .2.125 1950 Unknown [id number] 2.16.840.1.408758.3.579 .2.125 1950 Unknown [id number] 2.16.840.1.767320.3.579 .2.125 1948 Unknown [id number] 2.16.840.1.494178.3.579 .2.125 1950 Unknown [id number] [id number] .2.125 1950 Unknown [id number] 2.16.840.1.639847.3.579 .2.125 1950 Unknown [id number] 2.16.840.1.470208.3.579 .2.125 1948 Unknown [id number] 2.16.840.1.500401.3.579 .2.125 1948 Unknown [id number] 2.16.840.1.431023.3.579 .2.125 1948 Unknown [id number] 2.16.840.1.031522.3.579 .2.1259 1948 Unknown [id number] 2.16.840.1.972422.3.579 .2.9 1948 Unknown [id number] 2.16.840.1.080662.3.579 .2.9 1948 Unknown [id number] 2.16.840.1.411206.3.579 .2.9 1948 Unknown [id number] 2.16.840.1.737148.3.579 .2.9 1948 Unknown [id number] 2.16.840.1.603047.3.579 .2.1259 Social History Date Type Detail Facility Start: 05-18-2023 End: 07-14-2023 Sex Assigned At [facility] Start: 12-03-2022 Tobacco smoking stat [facility] Ex-smoker [facility] Start: 11-19-1968 End: [...] Osteopenia 04/04/2018 Overactive bladder 04/04/2018 Primary hypertension ([facility]) 05/11/2018 Osteoarthritis of spine with radiculopathy, lumbar region 11/10/2022 Primary osteoarthritis of both knees 11/10/2022 Primary osteoarthritis of left hip 11/10/2022 Punctate keratitis of both eyes 11/10/2022 Sensorineural hearing loss, bilateral 02/24/2018 Sjogren's syndrome ([facility]) 04/27/2021 Multiple perforations of right tympanic membrane 05/19/2023 Left ventricular hypertrophy 09/24/2021 History of TIA (transient ischemic attack) 07/14/2023 History of left hip replacement 07/14/2023 Resolved Ambulatory Problems Diagnosis Date Noted Gastroesophageal reflux disease 07/29/2018 History of artificial joint 10/20/2019 Obesity 08/04/2018 Reactive airway disease ([facility]) 10/26/2020 TIA (transient ischemic attack) 11/10/2022 [...] COLONOSCOPY 2013 FOOT SURGERY multiple foot sx, [id number] HYSTERECTOMY 1998 IR ABLATION BONE 12/15/2018 LT RFA T12-L3 IR INJECTION NERVE BLOCK 04/09/2018 L2-L5 nerve blocks IR INJECTION NERVE BLOCK Left 07/21/2018 T12-L3 nerve blocks LUMBAR EPIDURAL INJECTION 04/03/2021 OTHER SURGICAL HISTORY 1985 T Tube, [place] PARTIAL HIP REPLACEMENT 08/2018 TOE SURGERY TONSILLECTOMY [...] hearing aids documented in this encounter [facility] 02-04-2024 History of Present illness Narrative [...] Ad tympanogram documented in this encounter [facility] 01-28-2024 History of Present illness Narrative [...] weeks. 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 get vp transportation in color then goes back to darker [...] COLONOSCOPY 2013 FOOT SURGERY multiple foot sx, [phone] HYSTERECTOMY 1998 IR ABLATION BONE 12/15/2018 LT RFA T12-L3 IR INJECTION NERVE BLOCK 04/09/2018 L2-L5 nerve blocks IR INJECTION NERVE BLOCK Left 07/21/2018 T12-L3 nerve blocks LUMBAR EPIDURAL INJECTION 04/03/2021 OTHER SURGICAL HISTORY 1985 T [place]ube, [place] PARTIAL HIP REPLACEMENT 08/2018 TOE SURGERY TONSILLECTOMY [...] immunization - Influenza, high-dose seasonal, quadrivalent, PF ([id number]) (Fluzone High Dose [place] 0.7mL dose) [...] Wellness Visit. documented in this encounter [facility] 01-26-2024 History of Present illness Narrative Associated Order(s): L Inj/Asp: R knee Post-Procedure Diagnose(s): Arthritis of right knee Subjective Patient ID: Teodora Daily is a 74 y.o. female. RT Knee *Wants inj Last saw Caren 09/17/23 for the RT knee and was referred to [facility] for eval for visco supplementation, [...] for her back, sees pain management at [facility]. Admits ice prn. Also uses heat and voltaren occas with some relief, but gets the most relief with ice. Good rom, pain with ROM. Denies waking at night. [place]: XR [facility] 08/[facility]/23, heat, aleve, IBU, depo injection 04/23/22, depo injection 10/29/22, MRI [facility] 12/17/22, Depo injx 01/07/23 and [...] f/u prn documented in this encounter [facility] 09-17-2023 Note SD Cardiology [facility] Subjective Teodora Daily is a [...] No swelling. Cervical (more content not included)... [facility] 02-08-2022 Evaluation note Encounter Date Diagnosis [...] no improvement in 2 to 3 days [facility] Other 10-13-2022 NoteCONSULTATION CONSULTATION DATE: 01/31/2022 HISTORY [...] a p.r.n. basis at the patient's discretion.[facility] Right knee pain, unspecified [...] hypertrophic cardiomyopathy Surgical History Hip Replacement 2017 [facility] Other Summary Purpose Family History No Family [...] Procedures L Inj/Asp: R knee [facility] [employer] [address] [place] [address] Referral ID Status Reason Start Date Expiration Date V isits Requested Visits Authorized [id number] Authorized 01/26/2024 07/24/2024 1 1 Additional Source Comments INFORMATION SOURCE (unrecogn ized section and content) DATE CREATED AUTHOR 05/13/2021 [facility] dical Specialist DATE CREATED AUTHOR AUTHOR'S ORGANIZ ATION 10/23/2021 [facility] DATE CREATED AUTHOR AUTHOR'S ORGANIZ ATION 08/03/2022 [facility] pital DATE CREATED AUTHOR AUTHOR'S ORGANIZ ATION 02/13/2024 [facility] dical Specialists EPIC DATE CREATED AUTHOR AUTHOR'S ORGANIZ ATION 02/16/2024 [facility] REASON FOR VISIT (unrecogniz ed section [...] Care Teams (unrecognized sec tion and content) [employer] Relationship Specialty Start Date End Date Sven Peng MD [address] [place] [address] PCP - [employer] 04/21/20 Sven Peng MD [address] [place] [address] PCP - General Internal Medicine 08/27/22 [employer] Relationship Specialty Start Date End Date Sven Peng MD [address] [place] [address] PCP - [employer] 04/21/20 Sven Peng MD [address] [place] [address] PCP - General Internal Medicine 08/27/22 [employer] Counsel[employer] Relationship Specialty Start Date End Date Sven Peng MD [address] [place] [address] PCP - [employer] 04/21/20 Sven Peng MD [address] [place] [address] PCP - General Internal Medicine 08/27/22 [employer] Counsel[employer] Relationship Specialty Start Date End Date Sven Peng MD [address] [place] [address] PCP - [employer] 04/21/20 Sven Peng MD [address] [place] [address] PCP - General Internal Medicine 08/27/22 [employer] Counsel[employer] Relationship Specialty Start Date End Date Sven Peng MD [address] [place] [address] PCP - [employer] 04/21/20 Sven Peng MD [address] [place] [address] PCP - General Internal Medicine 08/27/22 FOR [...] BE BASED ON THE PRIMARY CLINICAL RECORDS. [facility]. provides no warranty or guarantee of the accuracy or completeness of information in this document.
--- NOTE | 2024-03-24 10:00 | P.GSHP_ITS ---
History of Present Illness History of Present Illness Chief complaint: ETD RIGHT EAR Narrative: Patient presents for presurgical testing. The patient reports a long history of right ear problems with a T-tube placed over 30 years ago. She states she has decreased hearing. She denies fever, sore throat, drainage, or any other complaints. Review of Systems ROS Narrative REVIEW OF SYSTEMS: Negative except as stated in HPI, ten or more systems reviewed. Constitutional: No fever, chills, weakness ENT: No sore throat or epistaxis Cardiovascular: No chest pain Respiratory: No shortness of breath, cough, or wheezing Musculoskeletal: Chronic joint pain and swelling Gastrointestinal: No abdominal pain, constipation, diarrhea, or vomiting Genitourinary: No dysuria or hematuria Neurological: No numbness, tingling, weakness, or headache Psychiatric: No mood changes [facility] Medical History (Updated 03/24/24 @ 09:44 by Maira Wyatt NP) Anemia ?D64.9 - Anemia, unspecified (ICD-10) Depression ?F32.A - Depression, unspecified (ICD-10) Anxiety ?F41.9 - Anxiety disorder, unspecified (ICD-10) Snores ?R06.83 - Snoring (ICD-10) COVID-19 ?U07.1 - COVID-19 (ICD-10) Migraine ?G43.909 - Migraine, unspecified, not intractable, without status migrainosus (ICD-10) IHSS (idiopathic hypertrophic subaortic stenosis) ?I42.1 - Obstructive hypertrophic cardiomyopathy (ICD-10) Knee tendinitis ?M76.899 - Other specified enthesopathies of unspecified lower limb, exclud ing foot (ICD-10) Hammertoe ?M20.40 - Other hammer toe(s) (acquired), unspecified foot (ICD-10) Arthritis ?M19.90 - Unspecified osteoarthritis, unspecified site (ICD-10) Reactive airway disease ?J45.909 - Unspecified asthma, uncomplicated (ICD-10) GERD (gastroesophageal reflux disease) ?K21.9 - Gastro-esophageal reflux disease without esophagitis (ICD-10) TIA (transient ischemic attack) ?G45.9 - Transient cerebral ischemic attack, unspecified (ICD-10) Left ventricular hypertrophy ?I51.7 - Cardiomegaly (ICD-10) Sjogrens syndrome ?M35.00 - Sjogren syndrome, unspecified (ICD-10) Hearing loss ?H91.90 - Unspecified hearing loss, unspecified ear (ICD-10) Keratitis ?H16.9 - Unspecified keratitis (ICD-10) Osteoarthritis of left hip ?M16.12 - Unilateral primary osteoarthritis, left hip (ICD-10) Primary osteoarthritis of both knees ?M17.0 - Bilateral primary osteoarthritis of knee (ICD-10) Osteoarthritis of spine with radiculopathy, lumbar region ?M47.26 - Other spondylosis with radiculopathy, lumbar region (ICD-10) Overactive bladder ?N32.81 - Overactive bladder (ICD-10) Osteopenia ?M85.80 - Other specified disorders of bone density and structure, unspecified site (ICD-10) Lumbosacral spondylosis without myelopathy ?M47.817 - Spondylosis without myelopathy or radiculopathy, lumbosacral region (ICD-10) Shoulder pain ?M25.519 - Pain in unspecified shoulder (ICD-10) Internal derangement of right shoulder ?M24.811 - Other specific joint derangements of right shoulder, not elsewhere classified (ICD-10) Heart palpitations ?R00.2 - Palpitations (ICD-10) Impaired glucose tolerance ?R73.02 - Impaired glucose tolerance (oral) (ICD-10) Dyspepsia ?R10.13 - Epigastric pain (ICD-10) Dry eye ?H04.129 - Dry eye syndrome of unspecified lacrimal gland (ICD-10) Decreased estrogen level ?E28.39 - Other primary ovarian failure (ICD-10) 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 - Chronic myringitis, unspecified ear (ICD-10) Tinnitus ?H93.19 - Tinnitus, unspecified ear (ICD-10) Edema, lower extremity ?R60.0 - Localized edema (ICD-10) Arthritis of right acromioclavicular joint ?M19.011 - Primary osteoarthritis, right shoulder (ICD-10) Allergic rhinitis ?J30.9 - Allergic rhinitis, unspecified (ICD-10) Dysfunction of right eustachian tube ?H69.91 - Unspecified Eustachian tube disorder, right ear (ICD-10) Sciatica ?M54.30 - Sciatica, unspecified side (ICD-10) Back pain ?M54.9 - Dorsalgia, unspecified (ICD-10) Herniated disc Osteoporosis ?M81.0 - Age-related osteoporosis without current pathological fracture (ICD- 10) Osteoarthritis ?M19.90 - Unspecified osteoarthritis, unspecified site (ICD-10) Carpal tunnel syndrome ?G56.00 - Carpal tunnel syndrome, unspecified upper limb (ICD-10) Heart murmur ?R01.1 - Cardiac murmur, unspecified (ICD-10) Hypertrophic cardiomyopathy ?I42.2 - Other hypertrophic cardiomyopathy (ICD-10) HTN (hypertension) ?I10 - Essential (primary) hypertension (ICD-10) Surgical History (Updated 03/24/24 @ 09:43 by Maira Wyatt NP) S/P epidural steroid injection ?Z92.241 - Personal history of systemic steroid therapy (ICD-10) History of radiofrequency ablation (RFA) of nerve of lumbar spine ?Z98.890 - Other specified postprocedural states (ICD-10) History of cataract extraction with lens replacement H/O toe surgery ?Z98.890 - Other specified postprocedural states (ICD-10) S/P total hip arthroplasty ?Z96.649 - Presence of unspecified artificial hip joint (ICD-10) H/O tympanostomy ?Z98.890 - Other specified postprocedural states (ICD-10) H/O colonoscopy ?Z98.890 - Other specified postprocedural states (ICD-10) History of bunionectomy ?Z98.890 - Other specified postprocedural states (ICD-10) History of eyelid surgery ?Z98.890 - Other specified postprocedural states (ICD-10) S/P tonsillectomy and adenoidectomy ?Z90.89 - Acquired absence of other organs (ICD-10) S/P colon resection ?Z90.49 - Acquired absence of other specified parts of digestive tract (ICD- 10) Hx of tonsillectomy ?Z90.89 - Acquired absence of other organs (ICD-10) History of bladder suspension procedure ?Z98.890 - Other specified postprocedural states (ICD-10) ?Z87.448 - Personal history of other diseases of urinary system (ICD-10) History of foot surgery ?Z98.890 - Other specified postprocedural states (ICD-10) History of hip replacement ?Z96.649 - Presence of unspecified artificial hip joint (ICD-10) History of colon resection ?Z90.49 - Acquired absence of other specified parts of digestive tract (ICD- 10) History of hysterectomy ?Z90.710 - Acquired absence of both cervix and uterus (ICD-10) Family History (Updated 03/24/24 @ 09:39 by Maira Wyatt NP) Other Family history of heart disease Family history of hypertension Family history of stroke Idiopathic hypertrophic subaortic stenosis Social History (Updated 03/24/24 @ 09:35 by Maira Wyatt NP) Within the past year, how often did you have a drink containing alcohol: 2-3 times a week Smoking status: Former smoker Non-prescribed substance use: denies use Highest level of school completed/degree received: some college, no degree Meds Home Medications and Allergies Home Medications ?Medication ?Instructions ?Recorded ?Confirmed ?Type aspirin 81 mg capsule 81 mg PO BID 08/21/23 03/24/24 History cyclosporine 0.05 % eye drops 1 drp ophthalmic (eye) Q12H 08/21/23 03/24/24 History (Restasis MultiDose) fluticasone propionate 50 1 spray intranasal DAILY PRN 08/21/23 03/24/24 History mcg/actuation nasal allergy symptoms spray,suspension (24 Hour Allergy Relief) irbesartan 75 mg tablet 37.5 mg PO DAILY 08/21/23 03/24/24 History metoprolol succinate 25 mg 25 mg PO DAILY 08/21/23 03/24/24 History tablet,extended release 24 hr (Toprol XL) paroxetine HCl 20 mg tablet 20 mg PO DAILY 08/21/23 03/24/24 History baclofen 10 mg tablet 10 mg PO Q12H PRN muscle spasm 02/17/24 03/24/24 History loratadine-pseudoephedrine ER 10 1 tab PO Q24H PRN allergy symptoms 03/24/24 03/24/24 History mg-240 mg tablet,extended [id number] (Claritin-D 24 Hour) multivitamin (Daily Multi-Vitamin 1 tab PO DAILY 03/24/24 03/24/24 History tablet) Allergies Allergy/AdvReac Type Severity Reaction Status Date / Time oxycodone Allergy Hives Verified 02/24/24 07:34 Sulfa (Sulfonamide Allergy Rash Verified 02/24/24 07:34 Antibiotics) Exam Narrative Exam Narrative: Constitutional: Awake, alert, comfortable, well-appearing, nontoxic, interactive, vital signs as charted Head: Normocephalic, atraumatic Eyes: Conjunctiva and lids normal to inspection ENT: Right tympanic membrane scarring, naris patent, posterior oropharynx clear, oral mucosa moist Neck: Supple, normal appearance, normal range of motion, no meningeal signs, no lymphadenopathy Respiratory: No respiratory distress, breath sounds clear Cardiovascular: Regular rate and rhythm, strong and regular heart tones Musculoskeletal: Normal gait, no swelling or edema Skin: No rashes or induration, no lesions, only visible skin inspected Neuro: No neurological deficits, normal sensation Psychiatric: Oriented ?3, normal affect Assessment and Plan Assessment and Plan (1) Dysfunction of right eustachian tube: Plan Right myringotomy with insertion of ventilation tubes, T-tube scheduled with Dr. Hunter April 01, 2024.
[2024-03-24 10:04] LABS: Basophils Absolute Auto 0.1 10^3/uL (0.0-0.1); Basophils Percent Auto 0.7 % (0.2-2.0); Eosinophils Absolute Auto 0.7 10^3/uL (0.0-0.7); Eosinophils Percent Auto 8.5 % (0.9-7.0); Hematocrit 41.1 % (36.0-48.0); Hemoglobin 13.2 g/dL (12.0-16.0); Immature Granulocytes Abs Auto 0.03 10^3/uL (0.00-0.03); Immature Granulocytes Pct Auto 0.4 % (0.0-0.5); Lymphocytes Absolute Auto 1.7 10^3/uL (1.2-3.8); Lymphocytes Percent Auto 20.6 % (20.5-60.0); Mean Corpuscular HGB Conc 32.1 g/dL (29.9-35.2); Mean Corpuscular Hemoglobin 28.9 pg (26.7-34.0); Mean Corpuscular Volume 90.1 fL (81.0-99.0); Mean Platelet Volume 11.4 fL (9.5-13.5); Monocytes Absolute Auto 0.7 10^3/uL (0.3-0.8); Monocytes Percent Auto 8.4 % (1.7-12.0); Neutrophils Absolute Auto 5.1 10^3/uL (1.4-6.5); Neutrophils Percent Auto 61.4 % (43.0-75.0); Platelet Count 237 10^3/uL (150-450); Red Blood Count 4.56 10^6/uL (4.20-5.40); Red Cell Distribution Width 13.2 % (11.0-15.0); White Blood Count 8.3 10^3/uL (4.0-11.0)
[2024-03-24 10:15] LABS: Anion Gap 13.6; BUN Creatinine Ratio 21.5; Calcium 8.9 mg/dL (8.5-10.1); Carbon Dioxide 27.8 mmol/L (21.0-32.0); Chloride 104 mmol/L (98-107); Estimated GFR (African America >60 (>=60 mL/min/1.73m^2); Estimated GFR (Non-African Ame >60 (>=60 mL/min/1.73m^2); Glucose 115 mg/dL (74-106); Potassium 4.4 mmol/L (3.5-5.1); Sodium 141 mmol/L (136-145)
[2024-03-24 10:19] LABS: INR 1.02; Partial Thromboplastin Time 27.4 sec (22.3-36.2); Prothrombin Time 10.8 sec (9.0-11.6)
== END 2024-03-24 09:03 | disposition home or self-care (01) ==
PROVIDERS: PCP Internal Medicine; Visit Provider Otolaryngology
DX: Z01.812 Encounter for preprocedural laboratory examination (principal); Z01.818 Encounter for other preprocedural examination; H69.91 Unspecified Eustachian tube disorder, right ear
CPT/HCPCS: 80048; 85025; 85610; 85730; G0463

== ENCOUNTER 2024-04-01 12:46 | Day surgery (SDC) | payer MEDICARE, SELFPAY ==
[2024-03-24 09:53] VITALS: BP 135/78; PULSE 71; TEMP 36.3; O2SAT 94; BMI 36.1
[2024-04-01] VITALS (8 sets, daily range): BP systolic 124–150; BP diastolic 71–93; PULSE 65–68; TEMP 36.2; O2SAT 92–97; BMI 36.0
--- NOTE | 2024-04-01 | OP_ITS ---
OPERATION DATE: 04/01/2024 PRIMARY CARE PHYSICIAN: Sven Peng M.D. SURGEON: Guerita Hunter M.D. PREOPERATIVE DIAGNOSIS: Right eustachian tube dysfunction. POSTOPERATIVE DIAGNOSIS: Right eustachian tube dysfunction. PROCEDURE: Right myringotomy and tube with microdissection, placement of a T- tube. ANESTHESIA: General LMA. COMPLICATIONS: None. FINDINGS: Myringosclerosis and dry middle ear. INDICATIONS: This 74-year-old woman presented with symptomatic right eustachian tube dysfunction, unresponsive to aggressive medical management. PROCEDURE: Patient identified in the holding area and taken back to the OR, where she was placed in the supine position. After induction of general anesthesia, the right ear was approached with the otomicroscope. An anterior radial myringotomy was performed, and a modified Brett?s T-tube was folded, inserted through the myringotomy and opened in the middle using microdissection. The patient was then awakened and taken to the recovery room in good condition. DANICA
[2024-04-01] MEDS: LACTATED RINGER'S SOLUTION 1,000 ML 50 ML IV (13:34)
--- NOTE | 2024-04-01 14:45 | PC.NURSE ---
NO EAR DRAINAGE NOTED
--- NOTE | 2024-04-01 14:49 | PC.NURSE ---
No ear drainage noted
--- NOTE | 2024-04-01 15:26 | PC.NURSE ---
No ear drainage noted
== END 2024-04-01 15:27 | disposition home or self-care (01) ==
LOC: SURGOUT 12:46
PROVIDERS: PCP Internal Medicine; Visit Provider Otolaryngology
PROC: (CPT 69436; principal; 2024-04-01 14:00)
DX: H69.81 Other specified disorders of Eustachian tube, right ear (principal); Z79.01 Long term (current) use of anticoagulants; Z90.710 Acquired absence of both cervix and uterus; I10 Essential (primary) hypertension; I42.2 Other hypertrophic cardiomyopathy
CPT/HCPCS: 69436; 36415; J2704

== ENCOUNTER 2024-04-06 06:55 | Day surgery (SDC) | payer MEDICARE, SELFPAY ==
--- OUTSIDE RECORDS SUMMARY | 2024-04-06 06:58 | XMS_ITS | CCD ---
Author Organization [facility] Care Team Providers Care Bond Clerk Name Role Phone UNKNOWN, PHYSICIAN Referring Unavailable [...] Allergy Type Date of Onset Reaction(s) Facility (13 sources) oxyCODONE Drug Allergy 08-01-19 19 hives, Itching, Rash [facility] Other (1 source) Sulfacetamide Drug Allergy neck swelled, hives [facility] Other (2 sources) oxyCODONE Drug Allergy [facility] Repository (2 sources) Sulfonamides (Antibiotic) Drug allergy (disorder) [facility] Repository (12 sources) HYDROcodone Drug Allergy 08-01-19 19 [facility] Healthcare Work Phone: (12 sources) Sulfonamides (Antibiotic) Drug Intolerance 08-01-19 19 Anaphylaxis, Hives, Itching, Rash, Shortness of breath, Swelling [facility] Healthcare (1 source) Sulfonamides (Antibiotic); Translations: [SULFA (SULFONAMIDE ANTIBIOTICS)] Propensity to adverse reactions to drug (disorder) 12-26-19 22 [facility] Repository Medications Current Medications Medication Drug Class(es) [...] (Therapy completed) aspirin 81 mg chewable tablet (13 sources) Platelet Aggregation Inhibitor, Nonsteroidal Anti-inflammatory Drug take 1 tablet by mouth twice daily aspirin 81 MG chewable tablet Chew 1 tablet twice a day by oral route. Active Baby Aspirin Act conchis calcium carbonate 1500 mg oral tablet (11 sources) End: 02-11-2024 calcium carbonate 1500 (600 Ca) MG tablet every 12 (twelve) hours. 02/11/2024 Discontinued (Therapy completed) cholecalciferol 0.05 mg oral capsule (12 sources) Vitamin D cholecalciferol (Vitamin D-3) 50 MCG (2000 UT) capsule 1 capsule 1 (one) time each day at the same time. Active cyclobenzaprine hydrochloride 10 mg oral tablet (12 sources) Muscle Relaxant Start: 11-13-2023 take 1 tablet by mouth at bedtime cyclobenzaprine (Flexeril) 10 MG tablet Take 10 mg by mouth at bedtime 11/13/2023 Active cycloSPORINE (Restasis) 0.05 % ophthalmic emulsion (12 sources) take 1 drop(s) into the eye(s) twice daily cycloSPORINE (Restasis) 0.05 % ophthalmic emulsion instill 1 drop into both eyes twice a day as directed Active fexofenadine (1 source) Histamine-1 Receptor Antagonist Carolin Active fluticasone propionate 0.05 mg/actuat metered dose nasal spray (9 sources) Corticosteroid take 1 spray(s) nasal route once daily fluticasone (Flonase) 50 MCG/ACT nasal spray Administer 1 spray into each nostril Daily Shake gently. Before first use, prime pump. After use, clean tip and replace cap. Active Flonase Active irbesartan 150 mg oral tablet (12 sources) Angiotensin 2 Receptor Everett Start: 11-03-2023 [...] succinate 25 mg extended release oral tablet (13 sources) beta-Adrenergic Everett Start: 09-09-2022 take 1 tablet by mouth every twenty-four hours in the morning metoprolol succinate XL (Toprol-XL) 25 MG 24 hr tablet Take 1 tablet by mouth in the morning. 09/09/2022 Active Toprol XL Active Multiple Vitamins-Minerals (Centrum Silver) chewable tablet (12 sources) Multiple Vitamins-Minerals (Centrum Silver) chewable tablet every 12 (twelve) hours. Active oxybutynin (1 source) Cholinergic Muscarinic Antagonist Oxybutynin Active PARoxetine hydrochloride 20 mg oral tablet (12 sources) Serotonin Reuptake Inhibitor Start: 023 take [...] e vitamin b12 0.1 mg oral tablet (12 sources) Vitamin B12 cyanocobalamin ( Vitamin B-12) [...] Classification Problem Date Documented Date Episodic/Chronic Asthma (12 sources) Reactive airway disease; Translations: [Unspecified asthma, uncomplicated] Onset: 1 Resolved: 4 07-14-2023 Chronic Cardiac dysrhythmias (2 sources) Supraventricular tachycardia; Translations: [Supraventricular tachycardia, unspecified (CMS/HCC)] 01-28-2024 Chronic Essential hypertension (14 sources) Essential hypertension; Translations: [Essential (primary) hypertension] [...] bilateral] Onset: 3 11-10-2022 Chronic Menopausal disorders (16 sources) Other primary ovarian failure; Translations: [Decreased estrogen level] Onset: 2 Chronic Mood disorders (2 sources) Moderate major depression, single episode; Translations: [Major depressive disorder, single episode, moderate] 01-28-2024 Chronic Osteoarthritis (20 sources) Arthritis of right knee; Translations: [Unilateral primary osteoarthritis, right knee] Onset: 1 01-26-2024 Chronic Other and ill-defined heart disease (12 sources) Left ventricular hypertrophy; Translations: [Cardiomegaly] Onset: 2 07-14-2023 Chronic Other circulatory disease (2 sources) Ecchymosis; Translations: [Hemorrhage, not elsewhere classified] 01-28-2024 Episodic Other connective tissue disease (12 sources) History of repair of hip joint; Translations: [Presence of left artificial hip joint] Onset: 4 07-14-2023 Chronic Other diseases of bladder and urethra (12 sources) Overactive bladder; Translations: [Overactive bladder] Onset: 8 11-10-2022 Chronic Other ear and sense organ disorders (12 sources) Chronic tympanitis; Translations: [Chronic myringitis, unspecified ear] Onset: 8 11-10-2022 Chronic Other ear and sense organ disorders (15 sources) Sensorineural hearing loss, bilateral; Translations: [Sensorineural [...] Translations: [Cough] Episodic Other non-traumatic joint disorders (12 sources) Derangement of right shoulder joint; Translations: [Other specific joint derangements of right shoulder, not elsewhere classified] Onset: 0 11-10-2022 Chronic Other non-traumatic joint disorders (2 sources) Pain in right knee; Translations: [Pain in joint, lower leg] 01-26-2024 Episodic Other nutritional; endocrine; and metabolic disorders (12 sources) Obese class I; Translations: [Obesity (BMI 30.0-34.9)] Onset: 3 11-10-2022 Chronic Other nutritional; endocrine; and metabolic disorders (2 sources) Weight increased; Translations: [Abnormal weight gain] 01-28-2024 Episodic Other upper respiratory disease (12 sources) Allergic rhinitis; Translations: [Allergic rhinitis, unspecified] Onset: 8 11-10-2022 Chronic Other upper respiratory infections (1 source) Acute sinusitis, unspecified Episodic Estela-; endo-; and myocarditis; cardiomyopathy (except that caused by tuberculosis or sexually transmitted disease) (12 sources) Hypertrophic obstructive cardiomyopathy; Translations: [Obstructive hypertrophic cardiomyopathy] Onset: 3 11-10-2022 Chronic Spondylosis; intervertebral disc disorders; other back problems (20 sources) Other spondylosis with radiculopathy, lumbar region; Translations: [Prolapsed lumbar intervertebral disc] Onset: Chronic Systemic lupus erythematosus and connective tissue disorders (12 sources) Sjogren's syndrome; Translations: [Sicca syndrome, unspecified] Onset: 11-10-2022 Chronic Past or Other Problems Problem Classification Problem Date Documented Date Episodic/Chronic Abdominal pain (12 sources) Indigestion; Translations: [Epigastric pain] Onset: 07-13-2018 11-10-2022 Episodic Cardiac dysrhythmias (14 sources) Intermittent palpitations; Translations: [Palpitations] Onset: 02-25-2022 11-10-2022 Episodic Diabetes mellitus without complication (12 sources) Impaired glucose tolerance; Translations: [Impaired glucose tolerance (oral)] Onset: 05-11-2018 11-10-2022 Episodic E Codes: Cut/pierceb (1 source) Contact with knife, initial encounter; Translations: [CONTACT WITH KNIFE INITIAL ENC] Onset: 04-09-2022 Episodic Esophageal disorders (12 sources) Gastroesophageal reflux disease; Translations: [Gastro-esophageal reflux disease without esophagitis] Onset: 07-29-2018 Resolved: 07-14-2023 07-14-2023 Chronic Heart valve disorders (4 sources) Cardiac murmur, unspecified; Translations: [CARDIAC MURMUR UNSPECIFIED] Onset: 09-05-2021 Episodic Mood disorders (12 sources) Mood disorders Onset: 07-14-2023 07-14-2023 Open wounds of extremities (4 sources) Laceration without foreign body of left middle finger without damage to nail, initial encounter; Translations: [LAC W/O FB LT MF W/O DMG NAIL INIT] Onset: 04-05-2022 Episodic Other aftercare (1 source) Other termite renewal inspector (current) drug therapy; Translations: [OTH SHELTER CURRENT DRUG THERAPY] Onset: 04-09-2022 Episodic Other bone disease and musculoskeletal deformities (1 source) Other specified disorders of bone density and structure, unspecified site; Translations: [OTH D/O BONE DEN STRUCT UNS SITE] Onset: 12-11-2021 Episodic Other bone disease and musculoskeletal deformities (12 sources) Osteopenia; Translations: [Other specified disorders of bone density and structure, unspecified site] Onset: 04-04-2018 11-10-2022 Episodic Other circulatory disease (12 sources) History of transient ischemic attack; Translations: [Personal history of transient ischemic attack (TIA), and cerebral infarction without residual deficits] Onset: 07-14-2023 07-14-2023 Episodic Other ear and sense organ disorders (12 sources) Bilateral tinnitus; Translations: [Tinnitus, bilateral] Onset: 02-24-2018 11-10-2022 Episodic Other eye disorders (12 sources) Disorder of lacrimal gland; Translations: [Dry eye syndrome of bilateral lacrimal glands] Onset: 11-10-2022 11-10-2022 Episodic Other lower respiratory disease (2 sources) Shortness of breath; Translations: [Shortness of breath] Onset: 09-17-2023 Episodic Other nutritional; endocrine; and metabolic disorders (12 sources) Obesity; Translations: [Obesity, unspecified] Onset: 08-04-2018 Resolved: 11-11-2022 11-11-2022 Chronic Other screening for suspected conditions (not mental disorders or infectious disease) (1 source) Encounter for screening mammogram for malignant neoplasm of breast; Translations: [ENC SCR MAMMO MALIG NEOPLASM BREAST] Onset: 12-11-2021 Episodic Otitis media and related conditions (20 sources) Dysfunction of right eustachian tube; Translations: [Unspecified Eustachian tube disorder, right ear] Onset: 01-30-2021 Resolved: 07-14-2023 11-10-2022 Episodic Residual codes; unclassified (1 source) Family history of malignant neoplasm of other genital organs; Translations: [FAM HX MALIG NEOPLSM OTH GENIT ORGN] Onset: 12-11-2021 Episodic Residual codes; unclassified (12 sources) Bilateral lower limb edema; Translations: [Localized edema] Onset: 11-10-2022 11-10-2022 Episodic Residual codes; unclassified (12 sources) History of colectomy; Translations: [Acquired absence of other specified parts of digestive tract] Onset: 11-10-2022 11-10-2022 Episodic Screening and history of mental health and substance abuse codes (13 sources) Personal history of nicotine dependence; Translations: [Ex-smoker] Onset: 10-11-2019 11-10-2022 Episodic Spondylosis; intervertebral disc disorders; other back problems (13 sources) Intervertebral disc disorders with radiculopathy, lumbar region; Translations: [Disorder of sacrum] Onset: 02-02-2022 11-10-2022 Episodic Transient cerebral ischemia (16 sources) Transient cerebral ischemic attack, unspecified; Translations: [Transient cerebral ischemia] Onset: 09-07-2021 Resolved: 07-14-2023 Chronic Unclassified (1 source) Cough R05.9 Results Test Name Value Interpretation Reference Range Facility ALL CBC WITH AUTO DIFFon BASOPHILS ABSOLUTE AUTO 0.1 [facility] Basophils/100 WBC (Bld) 0.7 % 0.2 - 2.0 % [facility] Eosinophils/100 WBC (Bld) 8.5 % High 0.9 - 7.0 % [facility] Erythrocyte distribution width (RBC) [Ratio] 13.2 % 11.0 - 15.0 % [facility] Hematocrit (Bld) [Volume fraction] 41.1 % 36.0 - 48.0 % [facility] Hemoglobin (Bld) [Mass/Vol] 13.2 g/dL 12.0 - 16.0 g/dL [facility] IMMATURE GRANULOCYTES ABS AUTO 0.03 [facility] Immature granulocytes/100 WBC (Bld) 0.4 % 0.0 - 0.5 % [facility] Interpretation and review of laboratory results Abnormal [facility] LYMPHOCYTES ABSOLUTE AUTO 1.7 [facility] Lymphocytes/100 WBC (Bld) 20.6 % 20.5 - 60.0 % [facility] MCH (RBC) [Entitic mass] 28.9 pg 26.7 - 34.0 pg [facility] MCHC (RBC) [Mass/Vol] 32.1 g/dL 29.9 - 35.2 g/dL [facility] MCV (RBC) [Entitic vol] 90.1 fL 81.0 - 99.0 fL [facility] MONOCYTES ABSOLUTE AUTO 0.7 [facility] Monocytes/100 WBC (Bld) 8.4 % 1.7 - 12.0 % [facility] NEUTROPHILS ABSOLUTE AUTO 5.1 [facility] Neutrophils/100 WBC (Bld) 61.4 % 43.0 - 75.0 % [facility] Platelet mean volume (Bld) [Entitic vol] 11.4 fL 9.5 - 13.5 fL [facility] TBH EO # 0.7 [facility] Healthcar e TBH PLT 237 [facility] Health[facility] TBH RBC 4.56 [facility] TBH WBC 8.3 [facility] [employer] [facility] Emme E2MS e Auditory function testson Right Ear: Mild to moderate sensorineural hearing loss from 500 Hz - 1K Hz. Moderate to severe sensorineural hearing loss above 2K Hz Left Ear: Mild to profound sensorineural hearing loss above 500 Hz. [facility] Urinalysis macro (dipstick) panel (U)on 01-28-2024 Bilirubin, UA Negative Negative - 4(70) +++ mg/dL [facility] Blood, UA Negative Negative - 50 Nas/mcL [facility] Clarity, UA Clear [facility] [employer] re Color, UA Yellow [facility] Em[employer] E2MS e Glucose, UA Negative Negative - 1999(110) ++++ mg/dL [facility] Interpretation and review of laboratory results Abnormal [facility] re Ketones, UA Negative Negative - 160(16) ++++ mg/dL [facility] Leukocytes, UA Trace Negative - 500+++ Aisha/mcL [facility] Nitrite, UA Negative Negative - Positive [facility] pH, UA 6.5 5 - 9 [facility] Em[employer] E[employer]MS e Protein, UA Negative Negative - 1999(20) ++++ mg/dL [facility] Spec Grav, UA 1.005 1 - 1.03 [facility] Urobilinogen, UA 1.0 0.2 - 12 mg/dL [facility] [employer] e No Panel Informationon 01-25 Yaa Duke, MAILE 01/26/2024 11:00 AM L Inj/Asp: [...] the patient. [facility] 36on 01-19-2024 36 Pt called back and w as informed by [facility] 36on 2024 36 Stress test results From: Chris Garcia MD Sent: 01/14/2024 1:24 AM EDT To: Lakisha Castillo MA Subject: RE: Scan Her stress test was normal. Follow-up in the next 6 months. ----- Message ----- Left message to call us back [facility] Telephoneon 2024 Telephone [id number] Teodora Daily 1950 Provider Department Center 2024 [id number], TANA MATTHEW [facility] Family History Problem Relation Age of Onset Other Mother Hypertrophic cardiomyopathy Sister Stroke Sister Other Sister Hypertrophic cardiomyopathy Brother Family Status - Relation Status Age at Mother Sister Brother [facility] 36on 11-06-2023 36 Regarding echo resul t from 10/21/2023: MD Lakisha London MA Her echo was ok, I want her to get a stress test (dx shortness of breath), if she cannot do treadmill then pranay nuclear. Spoke with patient and made her aware. She agreed to treadmill stress test. Order faxed to [facility]. [facility] Office Visiton 09-17-2023 Follow-up visit [id number] Teodora Daily 1950 Provider Department [place] 09/17/2023 367-CHRIS GARCIA MATTHEW Pool Family History Problem Relation Age of Onset Other Mother Hypertrophic cardiomyopathy Sister Stroke Sister Other Sister Hypertrophic cardiomyopathy Brother Family Status - Relation Status Age at Mother Sister Brother Level of Service:49531 [facility] OFFICE/OUTPATIENT ESTABLISHED MOD MDM 30 MIN [facility] FREE T3on 07-24-2022 FREE T3 2.66 pg/mlL Normal 2.18-3.98 [facility] Comment on above: Performed By: #### T SH, FT3 #### [facility] [address] [address] [address] Adolph Clinton FREE T4on 07-24-2022 Free T4 [Mass/Vol] 0.85 ng/dL Normal 0.76-1.46 [facility] Comment on above: Performed By: #### F T4 #### [facility] [address] [address] [address] Adolph Clinton TSHon 07-24-2022 TSH 2.124 uIU/mL Normal 0.358-3.740 [facility] Comment on above: Performed By: #### T , FT3 #### [facility] [address] [address] [address] Adolph Clinton XR FINGER MIN 2 [...] JESUS FELIZ Date: 2022-04-05 19:19 Normal [facility] COVID Quick Testingon 2021 Result Negative Shape Collage Other Quick Fluon 02-08-2022 FLUAV Ab CF (S) [Titer] Negative Shape Collage Other FLUBV Ab CF (S) [Titer] Negative Shape Coll[employer] Other MG MAMM SCREEN 3D TOD CADon 12-07-2021 MG MAMM SCREEN 3D TOD CAD Patient: TEODORA DAILY Exam Date: 12/07/2021 : 1950 Gender:F Ordering : DR SVEN PENG M.D. Admission #: [id number] Family : DR. TEODORA CHADWICK DBelkis Order #: [id number] CLICK HERE TO VIEW EXAM RADIOLOGY REPORT [...] uterine cancer at age 58. LOCATION: [facility] BREAST COMPOSITION: Scattered areas fibroglandular [...] Salguero M.D. on 12/07/2021 at 12:13 Normal [facility] XR DEXA BONE DENSITYon 12-07 [...] by: SEBASTIAN SALGUERO Date: 2021-12-07 15:10 Normal [facility] MRI CARDIAC W WO CONTRASTon 10-16-2021 MRI CARDIAC W WO CONTRAST [facility] Department of Radiology [address] [place] [id number] ===== Patient Name: TEODORA DAILY : [...] 2. Electronically signed: Kane Solomon. Transcribed by: [email or web address], User Resident: Electronically Signed by: KANE Shazia SOLOMON @ 10/18/2021 02:11 PM Normal [facility] CREATININEon 09-07-2021 Creatinine [Mass/Vol] 0.77 mg/dL Normal 0.55-1.02 [facility] Comment on above: Performed By: #### C IDALIA #### [facility] [address] [place] [address] Dr. Adolph Clinton EGFR-AF COOK ISLANDER >60 Normal >=60 [facility] Comment on above: Performed By: #### C IDALIA #### [facility] [address] [place] [address] Dr. Adolph Clinton EGFR-NON AF [place] ISLANDER >60 Normal >=60 [facility] Comment on above: Performed By: #### C IDALIA #### [facility] [address] [place] [address] HEAD WO W CONon 2 CT HEAD WO W CON EXAMINATION: CT HEAD WO W CON HISTORY: Transient cerebral ischemia COMPARISON: None. TECHNIQUE: Multiple computed tomograms of the head were obtained with and without intravenous contrast enhancement. 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 The vasculature about the [place] appears grossly intact. IMPRESSION: There [...] by: KAILEE GARCIA Date: 2021-09-07 13:44 Normal [facility] ECHOCARDIO M/2D COMPLETEon 0 09-05-2021 ECHOCARDIO M/2D COMPLETE Patient: TEODORA DAILY Exam Date: 09/05/2021 : 1950 Gender:F Ordering : DR SVEN PENG M.D. Admission #: [id number] Family : Order #: [id number] CLICK HERE TO VIEW EXAM ECHOCARDIOGRAM REPORT [...] Area(A4C): 12.70 cm2 Left Atrium Systolic Volume(A2C): 95540 mm3 Left Atrium Systolic Volume(A4C): 04262 mm3 Mitral Valve MV E to A [...] Garcia M.D. on 09/05/2021 at 20:08 Normal [facility] Q - DEJUAN SCREEN IFA W/RFL TIT ER IFAon 05-10-2021 DEJUAN SCREEN, IFA Negative Normal NEGATIVE [facility] Mobile Heavy Equipment Mechanic Comment on above: Order Comment: Punchd Testing performed at: [facility], [address] , [address] [place], [address], Bond Clerk: Pedro Asencio MD [facility] Date/Time: [facility] [...] AC-0: Negative International Consensus on DEJUAN Patterns (https://doi.org/10.1515/fxfr-2715-9538) For additional information, please refer to http://education.[employer] [employer]/faq/LPA662 (This link is being provided for informational/ educational purposes only.) Performed By: #### 7 832X, 249X #### [facility] [address] [place] [address] Q - SJOGREN'S ABS (SS-A,SS-B )on 05-10-2021 SJOGREN'S ANTIBODY (SS-A) <1.0 NEG Normal <1.0 NEG [facility] [employer] Equipment Mechanic Comment on above: Order Comment: [facility] Testing performed at: [facility], [address] , [address] [place], [address], Bond Clerk: Pedro Asencio MD [facility] Date/Time: [facility] Results Received Date/Time: [facility] Reported Date/Time: Performed By: #### 7 832X, 249X #### [facility] [address] [place] [address] SJOGREN'S ANTIBODY (SS-B) <1.0 NEG Normal <1.0 NEG [facility] [employer] Equipment Mechanic Comment on above: Order Comment: [facility] Testing performed at: [facility], [address] , [address] [facility], [place], [address], Bond Clerk: Pedro Asencio MD [facility] Date/Time: [facility] Results Received Date/Time: [id number] [facility] Reported Date/Time: Performed By: #### 7 832X, 249X #### [facility] [address] [place] [address] Q - DEJUAN CASC [id number] CHROMATIN (NUCLEOSOMAL) ANTIBODY <1.0 NEG Normal <1.[address] [facility] Specialist Comment on above: Order Comment: [facility] Testing performed at: [employer] [employer] [facility], [address] [facility], [address] [place], [address], Bond Clerk: Pedro Asencio MD [facility] Date/Time: [id number] [facility] Results Received Date/Time: [facility] Reported Date/Time: [...] 12% Sjogren's syndrome and 8% polymyositis. Ribonucleoprotein (CORE INSPECTOR) antibodies are to CORE INSPECTOR A and/or CORE INSPECTOR 68kD proteins; antibodies to one or both are present in >80% MCTD, 22% to 48% SLE, 14% systemic sclerosis, 12% Sjogren's and 8% polymyositis. Sm/CORE INSPECTOR antibodies are directed to epitopes formed in a complex of Sm and CORE INSPECTOR; antibodies to the Sm/CORE INSPECTOR complex are present in 54% to 94% MCTD, 30% SLE, 4% systemic sclerosis, and 9% Sjogren's and polymyositis. Sm antibody is present in 20% to 30% SLE, 8% MCTD, 10% polymyositis, 0% systemic sclerosis and 4% Sjogren's syndrome. Double stranded DNA, Chromatin, Ribonucleoprotein, Sm/CORE INSPECTOR complex and Sm antibodies are present in <2% of normal blood donors. The [facility] does not rule out autoimmune disease characterized by other autoantibody specificities such as rheumatoid arthritis, autoimmune hepatitis, primary biliary cholangitis, autoimmune thyroiditis, Lockridge's disease, pernicious anemia, autoimmune neuropathies, vasculitis, celiac disease and bullous disease. Please contact your local [employer] laboratory if you are interested in additional testing. Performed By: #### % IN7, % #### [facility] [address] [place] [address] DNA (DS) ANTIBODY <1 Normal [facility] Specialist Comment on above: Order Comment: [facility] Testing performed at: [facility], [address] [place] [address], [address] [place] [address], [address] [place] [address], Bond Clerk: Pedro Asencio MD [facility] Date/Time: [facility] Results Received Date/Time: [facility] Reported Date/Time: Result Comment: IU/m L Interpretation < or = 4 Negative 5-9 Indeterminate > or = 10 Positive Performed By: #### % IN7, % #### [facility] [address] [place] [address] CORE INSPECTOR ANTIBODY 1.0 POS Abnormal <1.0 NEG [facility] Mobile Heavy Equipment Mechanic Comment on above: Order Comment: [facility] Testing performed at: [facility], [address] [place] [address], [address] [place] [address], [phone], Bond Clerk: Pedro Asencio MD [facility] Collection Date/Time: [facility] Results Received Date/Time: [facility] Reported Date/Time: Performed By: #### % IN7, % #### [facility] Default [address] [place] [address] SM ANTIBODY <1.0 NEG Normal <1.0 NEG [facility] Mobile Heavy Equipment Mechanic Comment on above: Order Comment: [facility] Testing performed at: [employer] [facility], [address] [place] [address], [address] [place], [place], [address] [place] [address], Bond Clerk: Pedro Asencio MD Quest Collection Date/Time: [facility] Results Received Date/Time: [facility] Reported Date/Time: Performed By: #### % IN7, % #### [facility] Default [address] [place] [address] SM/CORE INSPECTOR ANTIBODY <1.0 NEG Normal <1.[address] [facility] Specialist Comment on above: Order Comment: [facility] Testing performed at: [employer] [facility], [address] [place] [address], [address] [place] [address], [address] [place] [address], Bond Clerk: Pedro Asencio MD [facility] Collection Date/Time: [facility] Results Received Date/Time: [facility] Reported Date/Time: Performed By: #### % IN7, % #### [facility] Default [address] [place] [address] Q - DEJUAN MULTIPLEX W/ REFLEX TO 11 ANTIBODY CASCADEon 05-01-2021 ANACHOICE(R) SCREEN Positive Abnormal NEGATIVE [facility] Specialist Comment on above: Order Comment: [facility] Testing performed at: [employer] [facility], [address] [facility], [address] [place] [address], [address] [place] [address], Bond Clerk: Pedro Asencio MD [facility] Collection Date/Time: [facility] Results Received Date/Time: [facility] Reported Date/Time: Result Comment: A po sitive DEJUAN, Multiplex reflexes to the 3 Tiered Multiplex 11 Antibody [place]. Testing in the [place] stops at the first positive result and does not preclude additional positive results. Further laboratory testing may be considered if clinically indicated. For additional information, please refer to http://education.[employer]/faq/BYU490 (This link is being provided for informational/ educational purposes only.) Performed By: #### % IN7, % #### [facility] Default [address] [place] [address] Q - CORE INSPECTOR INTERPon 05-01-2021 INTERPRETATION SEE NOTE Normal [facility] Mobile Heavy Equipment Mechanic Comment on above: Order Comment: [facility] Testing performed at: [employer] [facility], [address], [address] [place], [address], Bond Clerk: Pedro Asencio MD [facility] Collection Date/Time: [id number] [facility] Results Received Date/Time: [facility] Reported Date/Time: Result Comment: CORE INSPECTOR antibody is found in patients with mixed [...] Performed By: #### % IN7, %, #### [facility] Default [address] [place] [address] Vital Signs Date Time Vital Sign Value Performing Clinician Facility 02-11-2024 11:25-0400 Body height 158.8 cm Lindsey Raymundo MD Work Phone: [facility] 02-11-2024 11:25-0400 Body mass index (BMI) [Ratio] 34.92 kg/m2 Lindsey Raymundo MD Work Phone: [facility] 02-11-2024 11:25-0400 Body weight 88 kg Lindsey Raymundo MD Work Phone: [facility] 02-11-2024 11:25-0400 Diastolic blood pressure 69 mm[Hg] Lindsey Raymundo MD Work Phone: [facility] 02-11-2024 11:25-0400 Systolic blood pressure 127 mm[Hg] Lindsey Raymundo MD Work Phone: [facility] 01-28-2024 13:42-0400 Body height 158.8 cm Joleen DALEY Work Phone: [facility] 01-28-2024 13:42-0400 Body mass index (BMI) [Ratio] 35.53 kg/m2 Joleen Hemmer PA Work Phone: [facility] [employer] 01-28-2024 13:42-0400 Body weight 89.54 kg Joleen Popmer PA Work Phone: [facility] [employer] 01-28-2024 13:42-0400 Diastolic blood pressure 72 mm[Hg] Joleen Hemmer PA Work Phone: [facility] [employer] 01-28-2024 13:42-0400 Heart rate 73 /min Joleen Hemmer PA Work Phone: [facility] [employer] 01-28-2024 13:42-0400 Respiratory rate 16 /min Joleen Hemmer PA Work Phone: [facility] [employer] 01-28-2024 13:42-0400 SaO2% (BldA) [Mass fraction] 96 % Joleen Hemmer PA Work Phone: [facility] [employer] 01-28-2024 13:42-0400 Systolic blood pressure 124 mm[Hg] Joleen Hemmer PA Work Phone: [facility] [employer] 02-08-2022 13:05-0400 Body height 158.75 cm Staci Luamond Other [employer] Other 02-08-2022 13:05-0400 Body mass index (BMI) [Ratio] 33.29 kg/m2 Staci Sierra Other [employer] Other 02-08-2022 13:05-0400 Body temperature 101 [degF] Staci Sierra Other [employer] Other 02-08-2022 13:05-0400 Body weight 83.92 kg Staci Sierra Other [employer] Other 02-08-2022 13:05-0400 Respiratory rate 18 /min Staci Sierra Other [employer] Other 02-08-2022 13:05-0400 SaO2% (BldA) [Mass fraction] 95 % Staci Esquivel Other [employer] Other Encounters Encounter Date Encounter Type Care Provider Facility Start: 03-24-2024 End: 03-24-2024 Clinisync Result Encounter Lindsey Raymundo MD Work Phone: [facility] Unsolicited Start: 03-24-2024 End: 03-24-2024 Clinisync Result Encounter Lindsey Raymundo MD Work Phone: [facility] Unsolicited Start: 02-11-2024 End: 02-11-2024 Bamboo flowsheet Lindsey Raymundo MD Work Phone: [facility] Start: 02-11-2024 End: 02-11-2024 Bamboo flowsheet Lindsey Raymundo MD Work Phone: [facility] Start: 02-11-2024 End: 02-11-2024 Office outpatient visit 25 minutes Lindsey Raymundo MD Work Phone: [facility] Comment on above: ETD (Eustachian tube dysfunction), right (Primary Dx); Sensorineural hearing loss (SNHL), bilateral Start: 02-11-2024 End: 02-11-2024 ambulatory LINDSEY RAYMUNDO Not Available Start: 02-04-2024 End: 02-04-2024 Bamboo flowsheet Afia Anton [facility] Work Phone: [facility] Start: 02-04-2024 [...] 01-26-2024 End: 01-26-2024 Bamboo flowsheet Yaa Duke INSTALLER INSPECTOR FINAL Work Phone: [facility] Start: 01-26-2024 End: 01-26-2024 Bamboo flowsheet Yaa Lopez Apling INSTALLER INSPECTOR FINAL Work Phone: [facility] Start: 01-26-2024 End: 01-26-2024 Office outpatient visit 25 minutes Yaa Duke INSTALLER INSPECTOR FINAL Work Phone: [facility] Comment on above: Right knee pain, uns pecified chronicity (Primary Dx); Arthritis of right knee Start: 01-26-2024 End: 01-26-2024 ambulatory YAA Lopez APLING Not Available Start: 12-23-2023 End: 12-23-2023 ambulatory TEODORA CHADWICK Not Available Start: 11-24-2023 End: 11-24-2023 ambulatory LINDSEY RAYMUNDO Not Available Start: 09-30-2023 End: 09-30-2023 ambulatory CHET MCLAUGHLIN Not Available Start: 09-17-2023 End: 09-17-2023 ambulatory YAA Lopez APLING Not Available Start: 09-17-2023 End: 09-17-2023 ambulatory [facility] Start: 08-20-2023 End: 08-20-2023 ambulatory YAA Lopez APLING Not Available Start: 07-14-2023 End: 07-14-2023 ambulatory JOLEEN COURTNEY Not Available Start: 06-09-2023 End: 06-09-2023 ambulatory YAA Lopez APLING Not Available Start: 05-19-2023 End: [...] 02-08-2022 End: 02-08-2022 ambulatory Staci Esquivel Other [employer] Other Start: 02-08-2022 Office outpatient ne w 20 minutes Staci Esquivel [facility] [place] Start: 01-31-2022 End: 02-01-[address] DARYL BELTRAN . Facility:[facility] Start: 12-07-2021 End: 12-08-[address] SVEN PENG Facility:[facility] Start: 10-16-2021 End: 10-17-2021 ambulatory PHYSICIAN UNKNOWN Facility:[facility] Start: 09-07-2021 End: 09-08-[address] SVEN PENG Facility:[facility] Start: 09-05-2021 End: 09-06-[address] SVEN PENG Facility:[facility] Procedures Date Procedure Procedure Detail Performing Clinician Start: 03-24-2024 ALL CBC WITH AUTO DIFF Generic External Data Provider Start: 02-04-2024 AUDITORY FUNCTION TESTS Afia Anton [facility] Work Phone: Start: 01-28-2024 Urnls dip stick/tablet rgnt non-auto w/o micrscp Joleen Courtney PA Work Phone: Start: 01-26-2024 Arthrocentesis aspir&/inj major jt/bursa w/o Yaa Duke INSTALLER INSPECTOR FINAL Work Phone: Start: 10-20-2019 End: 07-14-2023 H/O: artificial joint History of artificial joint Yaa Duke INSTALLER INSPECTOR FINAL Work Phone: Plan of Treatment Date Care Activity Detail Author Start: 12-30-2024 End: 12-30-2024 Patient encounter procedure 12/30/2024 11:00 AM EDT Office Visit [facility] [address] [place] [address] Teodora Chadwick DO [address] [place] [address] [facility] Start: 12-22-2024 Medicare Annual Wellness (AWV) Medicare Annual Wellness (AWV) [facility] Start: 05-04-2024 End: 05-04-2024 Patient encounter procedure 05/04/2024 11:20 AM EST Office Visit [facility] [address] [place] [id number] Lindsey Raymundo MD [address] [place] [address] [facility] Start: 04-26-2024 End: 04-26-2024 Clinical Support 04/26/2024 9:45 AM EST Clinical Support [facility] [address] [place] [address] Afia Anton, [facility] [address] [place] [address] [facility] Start: 04-12-2024 End: 04-12-2024 Patient encounter procedure 04/12/2024 11:05 AM EST Office Visit [facility] [address] [place] [address] Annette Bright MD [address] [place] [address] [facility] Start: 03-02-2024 End: 03-02-2024 Patient encounter procedure 03/02/2024 11:15 AM EST Office Visit [facility] [address] [place] [phone] Annette Bright MD [address] [place] [address] [facility] Start: 02-11-2024 End: 02-11-2024 Patient encounter procedure [facility] Comment on above: Arrived Start: 02-04-2024 End: 02-04-2024 Clinical Support [facility] Comment on above: Arrived Start: 01-28-2024 End: 01-28-2024 Patient encounter procedure 01/28/2024 1:30 PM EDT Office Visit [facility] [address] [place] [address] Joleen Courtney PA [address] [place] [address] Arrived [facility] Comment on above: Arrived Start: 01-26-2024 End: 01-26-2024 Patient encounter procedure 01/26/2024 10:45 AM EDT Office Visit [facility] [address] [place] [address] Yaa Duke NP [address] [place] [address] Arrived [facility] Comment on above: Arrived Start: 12-21-2023 Influenza vaccination Influenza Vacc ine (#1) [facility] URINARY TRACT INFECTION (HTRX) URINARY TRACT INFECTION (HTRX) Lab Routine Urine abnormality Abnormal urinalysis Ordered: 01/28/2024 [facility] Work Phone: Comment on above: Ordered: 01/28/2024 Immunizations Immunization Date Immunization Notes Care Provider Fa [facility] 01-28-2024 Influenza, High-dose Seasonal, Quadrivalent, Preservative Free Joleen Courtney PA Work Phone: [facility] 02-05-2023 Influenza, Seasonal, Quadrivalent, Adjuvanted Joleen Courtney PA Work Phone: [facility] 02-05-2023 influenza virus vacc ine, unspecified formulation Yaa Duke INSTALLER INSPECTOR FINAL Work Phone: [facility] 04-05-2022 diphtheria, tetanus toxoids and pertussis vaccine Yaa Leilani INSTALLER INSPECTOR FINAL Work Phone: [facility] 03-25-2022 influenza, high dose seasonal, preservative-free Yaa Jaraing INSTALLER INSPECTOR FINAL Work Phone: [facility] 01-25-2021 Influenza, High-dose Seasonal, Quadrivalent, Preservative Free Yaa Jaraing INSTALLER INSPECTOR FINAL Work Phone: [facility] 02-25-2020 Influenza, Seasonal, Quadrivalent, Adjuvanted Yaa Duke INSTALLER INSPECTOR FINAL Work Phone: [facility] 10-11-2019 pneumococcal polysaccharide vaccine, 23 valent Yaa Duke INSTALLER INSPECTOR FINAL Work Phone: [facility] 06-06-2019 zoster vaccine recombinant M ned Duke INSTALLER INSPECTOR FINAL Work Phone: [facility] 01-28-2019 influenza, high dose seasonal, preservative-free Yaa Jaraing INSTALLER INSPECTOR FINAL Work Phone: [facility] 02-13-2018 influenza, high dose seasonal, preservative-free Yaa Jaraing INSTALLER INSPECTOR FINAL Work Phone: [facility] 01-08-2018 pneumococcal conjuga te vaccine, 13 valent Yaa Duke INSTALLER INSPECTOR FINAL Work Phone: [facility] 02-12-2017 Influenza, High-dose Seasonal, Quadrivalent, Preservative Free Yaa Jaraing INSTALLER INSPECTOR FINAL Work Phone: [facility] 01-27-2002 zoster vaccine, live Teresa pling INSTALLER INSPECTOR FINAL Work Phone: [facility] Payers Date Payer Category Payer Medicare [employer] MEDICARE ADVANTAGE HU[employer] MEDICARE [id number] 2020-Present [address] [address] [place] [address] [id number] 2020 Medicare (Managed Care) [employer] EDICARE ADVANTAGE [id number] 1959 Private Health Insurance [id number] 1948 Unknown [id number] 2.16.840.1.577621.3.579 .2.647 1948 Unknown [id number] 2.16.840.1.955097.3.579 .2.593 1948 Unknown [id number] 2.16.840.1.210851.3.579 .2.593 1948 Unknown [id number] 2.16840.1.796665.3.579 .2.593 1948 Unknown [id number] 2.16.840.1.472721.3.579 .2.593 1948 Unknown [id number] 2.16.840.1.592576.3.579 .2.593 1948 Unknown [id number] 2.16.840.1.797750.3.579 .2.593 1948 Unknown [id number] 2.16.840.1.774242.3.579 .2.593 1948 Unknown [id number] 2.16.840.1.167522.3.579 .2.1258 1948 Unknown [id number] 2.16.840.1.090152.3.579 .2.1258 1948 Unknown [id number] 2.16.840.1.759044.3.579 .2.1258 1948 Unknown [id number] 2.16.840.1.069448.3.579 .2.1258 1948 Unknown [id number] 2.16.840.1.429731.3.579 .2.1258 1948 Unknown [id number] 2.16.840.1.793266.3.579 .2.1258 1948 Unknown [id number] 2.16.840.1.100917.3.579 .2.1258 1948 Unknown [id number] 2.16.840.1.027685.3.579 .2.1258 1948 Unknown [id number] 2.16.840.1.645736.3.579 .2.1258 1948 Unknown [id number] 2.16.840.1.028681.3.579 .2.1258 1948 Unknown [id number] 2.16.840.1.643886.3.579 .2.1258 1948 Unknown [id number] 2.16.840.1.287233.3.579 .2.1258 1948 Unknown [id number] 2.16.840.1.208817.3.579 .2.1258 1948 Unknown [id number] 2.16.840.1.320733.3.579 .2.1258 1948 Unknown [id number] 2.16.840.1.138437.3.579 .2.1258 1948 Unknown [id number] 2.16.840.1.309508.3.579 .2.1259 1948 Unknown [id number] 2.16.840.1.196084.3.579 .2.1259 Social History Date Type Detail Facility Start: 05-18-2023 End: 07-14-2023 Sex Assigned At [facility] Healthcare Start: 12-03-2022 Tobacco smoking stat [facility] Ex-smoker [facility] Start: 11-19-1966 End: 04-21-2007 History of tobacco use Current smoker [facility] Start: 11-19-1966 End: 04-21-2007 History of tobacco use Cigarette Smoker [facility] Start: 12-03-2022 End: 07-14-2023 Cigarettes smoked current (pack per day) - Reported 1 [facility] Start: 12-03-2022 Tobacco use and exposure [...] Caffeine intake : 2-3 cups per day [facility] Start: 1950 Sex assigned at Female [facility] Start: 09-06-2022 Gender identity Identifies as female gender (finding) [facility] Start: 09-06-2022 Sexual orientation Heterosexual (fin ding) [facility] Clinical Notes 01-31-2022 to 02-11-2024 Lindsey [...] [place] Heart failure Brother Suleman Hypertension Sister Indy Mathias Migraines Sister Indy Stroke Sister Mey Active [...] Osteopenia 04/04/2018 Overactive bladder 04/04/2018 Primary hypertension (CMS/HCC) 05/11/2018 Osteoarthritis of spine with radiculopathy, lumbar region 11/10/2022 Primary osteoarthritis of both knees 11/10/2022 Primary osteoarthritis of left hip 11/10/2022 Punctate keratitis of both eyes 11/10/2022 Sensorineural hearing loss, bilateral 02/24/2018 Sjogren's syndrome (CMS/HCC) 04/27/2021 Multiple perforations of right tympanic membrane 05/19/2023 Left ventricular hypertrophy 09/24/2021 History of TIA (transient ischemic attack) 07/14/2023 History of left hip replacement 07/14/2023 Resolved Ambulatory Problems Diagnosis Date Noted Gastroesophageal reflux disease 07/29/2018 History of artificial joint 10/20/2019 Obesity 08/04/2018 Reactive airway disease (CMS/HCC) 10/26/2020 TIA (transient ischemic attack) 11/10/2022 Perforation [...] COLONOSCOPY 2013 FOOT SURGERY multiple foot sx, [phone] HYSTERECTOMY 1998 IR ABLATION BONE 12/15/2018 LT RFA T12-L3 IR INJECTION NERVE BLOCK 04/09/2018 L2-L5 nerve blocks IR INJECTION NERVE BLOCK Left 07/21/2018 T12-L3 nerve blocks LUMBAR EPIDURAL INJECTION 04/03/2021 OTHER SURGICAL HISTORY 1985 T [place], [place] [facility] PART[facility] H[place] RE[facility] 08/2018 TOE SURGERY TONSILLECTOMY [...] oral route. cholecalciferol (Vitamin D-3) 50 MCG (1999 [place]) [...] tod hearing aids documented in this encounter [facility] 02-04-2024 History of Present illness Narrative History: [...] Type Ad tympanogram documented in this encounter [facility] 01-28-2024 History of Present illness Narrative Images [...] weeks. 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 get continuous improvement specialist in color then goes back to darker [...] COLONOSCOPY 2013 FOOT SURGERY multiple foot sx, [phone] HYSTERECTOMY 1998 IR ABLATION BONE 12/15/2018 LT RFA T12-L3 IR INJECTION NERVE BLOCK 04/09/2018 L2-L5 nerve blocks IR INJECTION NERVE BLOCK Left 07/21/2018 T12-L3 nerve blocks LUMBAR EPIDURAL INJECTION 04/03/2021 OTHER SURGICAL HISTORY 1985 T [place]ube, [place] [facility] PART[facility] H[facility] REPL[facility] 08/2018 TOE SURGERY TONSILLECTOMY [...] immunization - Influenza, high-dose seasonal, quadrivalent, PF ([id number]) (Fluzone High Dose Quad North 0.7mL dose) [...] Medicare Wellness Visit. documented in this encounter [facility] 01-26-2024 History of Present illness Narrative Associated Order(s): L Inj/Asp: R knee Post-Procedure Diagnose(s): Arthritis of right knee Subjective Patient ID: Teodora Daily is a 74 y.o. female. RT Knee *Wants inj Last saw Caren 09/17/23 for the RT knee and was referred to [facility] for eval for visco supplementation, she [...] for her back, sees pain management at [facility]. Admits ice prn. Also uses heat and voltaren occas with some relief, but gets the most relief with ice. Good rom, pain with ROM. Denies waking at night. TX: XR [facility] 08/20/23, heat, aleve, IBU, depo injection 04/23/22, depo injection 10/29/22, MRI [facility] 12/17/22, Depo injx 01/07/23 and 03/18/23, [...] tolerated, f/u prn documented in this encounter [facility] 09-17-2023 Note [place] Cardiology - [facility] Subjective Teodora Daily is [...] No swelling. Cervical (more content not included)... [facility] 02-08-2022 Evaluation note Encounter Date Diagnosis Assessment [...] no improvement in 2 to 3 days [employer] Other 10-13-2022 NoteCONSULTATION CONSULTATION DATE: 01/31/2022 HISTORY [...] a p.r.n. basis at the patient's discretion.[facility] Right knee pain, unspecified chronicity- [...] loss (SNHL), bilateral documented in this encounter [facility] HealthcareHistory general Narrative - Reported* Type Description Date Medical History osteoporosis Medical History herniated disc Medical History hypertrophic cardiomyopathy Surgical History Hip Replacement 2017 [employer] Other Summary Purpose Family History No Family [...] right knee Procedures L Inj/Asp: R knee Apling, Yaa B, INSTALLER INSPECTOR FINAL [address] [place] [address] Referral ID Status Reason Start Date Expiration Date V isits Requested Visits Authorized [id number] Authorized 01/26/2024 07/24/2024 1 1 Additional Source Comments INFORMATION SOURCE (unrecogn ized section and content) DATE CREATED AUTHOR 05/13/2021 [facility] dical Specialist DATE CREATED AUTHOR AUTHOR'S ORGANIZ ATION 10/23/2021 [facility] DATE CREATED AUTHOR AUTHOR'S ORGANIZ ATION 08/03/2022 [facility] DATE CREATED AUTHOR AUTHOR'S ORGANIZ ATION 02/13/2024 [facility] dical Specialists EPIC DATE CREATED AUTHOR AUTHOR'S ORGANIZ ATION 02/16/2024 [facility] REASON FOR VISIT (unrecogniz ed [...] Care Teams (unrecognized sec tion and content) Bond Clerk Relationship Specialty Start Date End Date Sven Peng MD [address] [facility] [address] [place] [address] PCP - [employer] 04/21/20 Sven Peng MD [address] [facility] [address] [place] [address] PCP - General Internal Medicine 08/27/22 Bond Clerk Relationship Specialty Start Date End Date Sven Peng MD [address] [facility] [address] [place] [address] PCP - [employer] 04/21/20 Sven Peng MD [address] [place] [address] PCP - General Internal Medicine 08/27/22 Bond Clerk Relationship Specialty Start Date End Date Sven Peng MD [address] [place] [address] PCP - [employer] 04/21/20 Sven Peng MD [address] [place] [address] PCP - General Internal Medicine 08/27/22 Bond Clerk Relationship Specialty Start Date End Date Sven Peng MD [address] [place] [address] PCP - [employer] 04/21/20 Sven Pegn MD [address] [place] [address] PCP - General Internal Medicine 08/27/22 Bond Clerk Relationship Specialty Start Date End Date Sven Peng MD [address] [place] [address] PCP - [employer] 04/21/20 Sven Peng MD [address] [place] [address] PCP - General Internal Medicine 08/27/22 Bond Clerk Relationship Specialty Start Date End Date Sven Peng MD [address] [place] [address] PCP - [employer] 04/21/20 Sven Peng MD [address] [place] [address] PCP - General Internal Medicine 08/27/22 FOR [...] BE BASED ON THE PRIMARY CLINICAL RECORDS. [facility]. provides no warranty or guarantee of the accuracy or completeness of information in this document.
[2024-04-06 07:09] VITALS: BP 137/84; PULSE 74; TEMP 36.6; O2SAT 97
[2024-04-06] MEDS: 0.9 % SODIUM CHLORIDE 500 ML IV (07:17)
[2024-04-06] MEDS: METHYLPREDNISOLONE ACETATE 40 MG/ML VIAL INJ (08:46)
[2024-04-06] MEDS: LIDOCAINE HCL 2% 400 MG/20 ML MDV 7 ML INJ (08:46)
[2024-04-06] MEDS: BUPIVACAINE HCL 0.25% PF 25 MG/10 ML VIAL 4 ML INJ (08:46)
[2024-04-06 08:48] VITALS: BP 123/68; PULSE 72; TEMP 36.7; O2SAT 96
[2024-04-06 08:49] VITALS: BP 122/60; PULSE 71; TEMP 36.7; O2SAT 96
--- NOTE | 2024-04-06 09:12 | W.PM.PROCNOT ---
Date of procedure: 04/06/24 Pre-op diagnosis: Left superior gluteal neuritis Post-op diagnosis: same as pre-op Procedure: Left Superior gluteal nerve Radiofrequency ablation PreOp diagnosis: pain secondary to superior gluteal neuritis Postop diagnosis same Under fluoroscopic guidance Rhizotomy was created using radio frequency ablation at 80?C for 90 seconds 1 to 2 lesions created at each site. Post lesioning injection of 2 mL each of 0.25% Marcaine and 2% lidocaine with Depo-Medrol 40mg. 0.5 to 1 mL injected at each site IV in place yes If Intravenous fluids: NS at KVO Anesthesia local 2% lidocaine for Anesthesia Other: MAC Timeout process compliant After informed consent obtained. Patient brought to the procedure room placed in the prone position skin overlying the area was prepped and draped in a sterile fashion using betadine. 25 gauge needle was used to create a skin wheal over each of the targeted areas utilizing 2% lidocaine. A rhizotomy needle with a 10 mm active tip was inserted over each of the anesthetized areas and directed towards four different areas in the distribution of the superior gluteal nerve, accomplished under fluoroscopic guidance. After encountering the same we had positive sensory stimulation, negative motor stimulation was noted. lesions were then created. Post lesioning, steroid solution was injected needles removed. Patient was transferred to recovery room in stable condition to be discharged home after meeting criteria. Anesthesia: MAC Surgeon: Marion Abraham Condition: stable Disposition: PACU
== END 2024-04-06 09:14 | disposition home or self-care (01) ==
LOC: SURGOUT 06:56
PROVIDERS: PCP Internal Medicine; Visit Provider Anesthesiology Pain Medicine
DX: G57.82 Other specified mononeuropathies of left lower limb (principal)
CPT/HCPCS: 64640; 77002; J0665; J1010; J2704

== ENCOUNTER 2024-05-05 15:04 | Outpatient (OUT) | payer MEDICARE, SELFPAY ==
--- OUTSIDE RECORDS SUMMARY | 2024-05-05 15:23 | XMS_ITS | CCD ---
Author Organization [facility] Care Team Providers Care Branch Controller Name Role Phone UNKNOWN, PHYSICIAN Referring Unavailable [...] Care Unavailable PENG, DR BOSS Consulting Unavailable ABEL JULIO Rutledge Consulting Unavailable LAKSHMIPATHY, NARENDRANATH Admitting Unava ilable [...] Unavailable Sven Peng MD Primary Care Provider [phone] CHRIS GARCIA Attending Unavailable LINDSEY RAYMUNDO Attending Unavailable SVEN PENG Referring Unavailable YAA DUKE Attending Unavailable YAA DUKE Referring Unavailable JOLEEN COURTNEY Attending Unavailable YAA DUKE Attending Unavailable YAA DUKE Referring Unavailable YAA DUKE Attending Unavailable CHET MCLAUGHLIN Attending Unavailable CHET MCLAUGHLIN Referring Unavailable LINDSEY RAYMUNDO Attending Unavailable TEODORA CHADWICK Attending Unavailable YAA DUKE Attending Unavailable JOLEEN COURTNEY Attending Unavailable AFIA ANTON Attending Unavailable LINDSEY RAYMUNDO Attending Unavailable JOSE BERKOWITZ Attending Unavailable Allergies Allergy Classification Reported Allergen(s) Allergy Type Date of Onset Reaction(s) Facility (20 sources) oxyCODONE Drug Allergy 08-01-19 19 hives, Itching, Rash [email or web address] Other (1 source) Sulfacetamide Drug Allergy neck swelled, hives [facility] Other (2 sources) oxyCODONE Drug Allergy [facility] (2 sources) Sulfonamides (Antibiotic) Drug allergy (disorder) [facility] (20 sources) HYDROcodone Drug Allergy 08-01-19 19 [facility] Work Phone: (20 sources) Sulfonamides (Antibiotic) Drug Intolerance 08-01-19 19 Anaphylaxis, Hives, Itching, Rash, Shortness of breath, Swelling [facility] Healthcare (1 source) Sulfonamides (Antibiotic); Translations: [SULFA (SULFONAMIDE ANTIBIOTICS)] Propensity to adverse reactions to drug (disorder) 12-26-19 [facility] Repository Medications Current Medications Medication Drug Class(es) Dates Sig (Normalized) Sig (Original) amoxicillin 875 mg / clavulanate 125 mg oral tablet (1 source) Penicillin-class Antibacterial Start: 02-08-2022 take 1 tablet by mouth every twelve hours Amoxicillin-Pot Clavulanate 875-125 MG 1 tablet Orally every 12 hrs for 10 day(s) Jan, Active ascorbic acid 1000 mg oral tablet (13 sources) Vitamin C End: 02-11-2024 Ascorbic Acid (vitamin C) 1000 MG tablet 1 (one) time each day at the same time. 02/11/2024 Discontinued (Therapy completed) aspirin 81 mg chewable tablet (20 sources) Platelet Aggregation Inhibitor, Nonsteroidal Anti-inflammatory Drug take 1 tablet by mouth twice daily aspirin 81 MG chewable tablet Chew 1 tablet twice a day by oral route. Active Baby Aspirin Act conchis baclofen 10 mg oral tablet (2 sources) gamma-Aminobutyric Acid-ergic Agonist Start: 04-05-2024 take 0.5-1 tablets by mouth twice daily as needed baclofen (Lioresal) 10 MG tablet TAKE 1/2 TO 1 TABLET BY MOUTH TWICE A DAY NEEDED 04/05/2024 Active calcium carbonate 1500 mg oral tablet (13 sources) End: 02-11-2024 calcium carbonate 1500 (600 Ca) MG tablet every 12 (twelve) hours. 02/11/2024 Discontinued (Therapy completed) cholecalciferol 0.05 mg oral capsule (20 sources) Vitamin D cholecalciferol (Vitamin D-3) 50 MCG (1999 UT) capsule 1 capsule 1 (one) time each day at the same time. Active cyclobenzaprine hydrochloride 10 mg oral tablet (20 sources) Muscle Relaxant Start: 11-13-2023 take 1 tablet by mouth at bedtime cyclobenzaprine (Flexeril) 10 MG tablet Take 10 mg by mouth at bedtime 11/13/2023 Active cycloSPORINE (Restasis) 0.05 % ophthalmic emulsion (20 sources) take 1 drop(s) into the eye(s) twice daily cycloSPORINE (Restasis) 0.05 % ophthalmic emulsion instill 1 drop into both eyes twice a day as directed Active fexofenadine (1 source) Histamine-1 Receptor Antagonist Carolin Active fluticasone propionate 0.05 mg/actuat metered dose nasal spray (15 sources) Corticosteroid take 1 spray(s) nasal route once daily fluticasone (Flonase) 50 MCG/ACT nasal spray Administer 1 spray into each nostril Daily Shake gently. Before first use, prime pump. After use, clean tip and replace cap. Active Flonase Active irbesartan 150 mg oral tablet (20 sources) Angiotensin 2 Receptor Everett Start: 11-03-2023 [...] succinate 25 mg extended release oral tablet (20 sources) beta-Adrenergic Everett Start: 09-09-2022 take 1 tablet by mouth every twenty-four hours in the morning metoprolol succinate XL (Toprol-XL) 25 MG 24 hr tablet Take 1 tablet by mouth in the morning. 09/09/2022 Active Toprol XL Active Multiple Vitamins-Minerals (Centrum Silver) chewable tablet (20 sources) Multiple Vitamins-Minerals (Centrum Silver) chewable tablet every 12 (twelve) hours. Active nystatin 100 unt/mg topical powder (8 sources) Polyene Antifungal Start: 024 nystatin (Mycostatin) [id number] UNIT/GM powder Indications: Erythema intertrigo Apply to the affected area, once daily, 30 day supply 60 g 11 04/16/2024 Active oxybutynin (1 source) Cholinergic Muscarinic Antagonist Oxybutynin Active PARoxetine hydrochloride 20 mg oral tablet (20 sources) Serotonin Reuptake Inhibitor Start: 023 take [...] e vitamin b12 0.1 mg oral tablet (20 sources) Vitamin B12 cyanocobalamin ( Vitamin B-12) 100 MCG tablet Vitamin B12 Active Completed/Discontinued Medications Medication Drug Class(es) Dates Sig (Normalized) Sig (Original) 12 hr fexofenadine hydrochloride 60 mg / pseudoephedrine hydrochloride 120 mg extended release oral tablet (8 sources) alpha-Adrenergic Agonist, Histamine-1 Receptor Antagonist End: [...] dose zinc gluconate 50 mg oral tablet (8 sources) End: 01-28-2024 zinc gluconate 50 MG tablet 1 (one) time each day at the same time. 01/28/2024 Discontinued (Other) Problems Active Problems Problem Classification Problem Date Documented Date Episodic/Chronic Asthma (20 sources) Reactive airway disease; Translations: [Unspecified asthma, uncomplicated] Onset: 1 Resolved: 4 07-14-2023 Chronic Cardiac dysrhythmias (2 sources) Supraventricular tachycardia; Translations: [Supraventricular tachycardia, unspecified (CMS/HCC)] 01-28-2024 Chronic Essential hypertension (20 sources) Essential hypertension; Translations: [Essential (primary) hypertension] [...] bilateral] Onset: 3 11-10-2022 Chronic Menopausal disorders (20 sources) Other primary ovarian failure; Translations: [Decreased estrogen level] Onset: 2 Chronic Mood disorders (2 sources) Moderate major depression, single episode; Translations: [Major depressive disorder, single episode, moderate] 01-28-2024 Chronic Osteoarthritis (20 sources) Arthritis of right knee; Translations: [Unilateral primary osteoarthritis, right knee] Onset: 1 01-26-2024 Chronic Other and ill-defined heart disease (20 sources) Left ventricular hypertrophy; Translations: [Cardiomegaly] Onset: 2 07-14-2023 Chronic Other circulatory disease (2 sources) Ecchymosis; Translations: [Hemorrhage, not elsewhere classified] 01-28-2024 Episodic Other connective tissue disease (20 sources) History of repair of hip joint; Translations: [Presence of left artificial hip joint] Onset: 4 07-14-2023 Chronic Other diseases of bladder and urethra (20 sources) Overactive bladder; Translations: [Overactive bladder] Onset: 8 11-10-2022 Chronic Other ear and sense organ disorders (20 sources) Chronic tympanitis; Translations: [Chronic myringitis, unspecified ear] Onset: 8 11-10-2022 Chronic Other ear and sense organ disorders (20 sources) Sensorineural hearing loss, bilateral; Translations: [Sensorineural hearing loss, bilateral] Onset: 8 11-10-2022 Chronic Other eye disorders (4 sources) Eyelid retraction left upper eyelid; Translations: [EYELID RETRACTION LEFT UPPER EYELID] Onset: 3 Episodic Other eye disorders (1 source) Eyelid retraction right upper eyelid; Translations: [EYELID RETRACT RT UPPER EYELID] Onset: 3 Episodic Other inflammatory condition of skin (4 sources) Intertrigo; Translations: [Erythema intertrigo] 04-12-2024 Episodic Other lower respiratory disease (1 source) Cough; Translations: [Cough] Episodic Other non-traumatic joint disorders (20 sources) Derangement of right shoulder joint; Translations: [Other specific joint derangements of right shoulder, not elsewhere classified] Onset: 0 11-10-2022 Chronic Other non-traumatic joint disorders (2 sources) Pain in right knee; Translations: [Pain in joint, lower leg] 01-26-2024 Episodic Other nutritional; endocrine; and metabolic disorders (20 sources) Obese class I; Translations: [Obesity (BMI 30.0-34.9)] Onset: 3 11-10-2022 Chronic Other nutritional; endocrine; and metabolic disorders (2 sources) Weight increased; Translations: [Abnormal weight gain] 01-28-2024 Episodic Other skin disorders (2 sources) Seborrheic keratosis; Translations: [Other seborrheic keratosis] 04-12-2024 Episodic Other skin disorders (2 sources) Lentiginosis; Translations: [Other melanin hyperpigmentation] 04-12-2024 Episodic Other skin disorders (2 sources) Inflamed seborrheic keratosis; Translations: [Inflamed seborrheic keratosis] 04-12-2024 Episodic Other upper respiratory disease (20 sources) Allergic rhinitis; Translations: [Allergic rhinitis, unspecified] Onset: 8 11-10-2022 Chronic Other upper respiratory infections (1 source) Acute sinusitis, unspecified Episodic Otitis media and related conditions (20 sources) Dysfunction of right eustachian tube; Translations: [Unspecified Eustachian tube disorder, right ear] Onset: 1 Resolved: 4 11-10-2022 Episodic Estela-; endo-; and myocarditis; cardiomyopathy (except that caused by tuberculosis or sexually transmitted disease) (20 sources) Hypertrophic obstructive cardiomyopathy; Translations: [Obstructive hypertrophic cardiomyopathy] Onset: 3 11-10-2022 Chronic Spondylosis; intervertebral disc disorders; other back problems (20 sources) Other spondylosis with radiculopathy, lumbar region; Translations: [Prolapsed lumbar intervertebral disc] Onset: 8 Chronic Systemic lupus erythematosus and connective tissue disorders (20 sources) Sjogren's syndrome; Translations: [Sicca syndrome, unspecified] Onset: 2 11-10-2022 Chronic Past or Other Problems Problem Classification Problem Date Documented Date Episodic/Chronic Abdominal pain (20 sources) Indigestion; Translations: [Epigastric pain] Onset: 07-13-2018 11-10-2022 Episodic Cardiac dysrhythmias (20 sources) Intermittent palpitations; Translations: [Palpitations] Onset: 02-25-2022 11-10-2022 Episodic Diabetes mellitus without complication (20 sources) Impaired glucose tolerance; Translations: [Impaired glucose tolerance (oral)] Onset: 05-11-2018 11-10-2022 Episodic E Codes: Cut/pierceb (1 source) Contact with knife, initial encounter; Translations: [CONTACT WITH KNIFE INITIAL ENC] Onset: 04-09-2022 Episodic Esophageal disorders (20 sources) Gastroesophageal reflux disease; Translations: [Gastro-esophageal reflux disease without esophagitis] Onset: 07-29-2018 Resolved: 07-14-2023 07-14-2023 Chronic Heart valve disorders (4 sources) Cardiac murmur, unspecified; Translations: [CARDIAC MURMUR UNSPECIFIED] Onset: 09-05-2021 Episodic Mood disorders (20 sources) Mood disorders Onset: 07-14-2023 07-14-2023 Open wounds of extremities (4 sources) Laceration without foreign body of left middle finger without damage to nail, initial encounter; Translations: [LAC W/O FB LT MF W/O DMG NAIL INIT] Onset: 04-05-2022 Episodic Other aftercare (1 source) Other experimental rocketsled mechanic (current) drug therapy; Translations: [OTH ANTENNA SPECIALIST CURRENT DRUG THERAPY] Onset: 04-09-2022 Episodic Other bone disease and musculoskeletal deformities (1 source) Other specified disorders of bone density and structure, unspecified site; Translations: [OTH D/O BONE DEN STRUCT UNS SITE] Onset: 12-11-2021 Episodic Other bone disease and musculoskeletal deformities (20 sources) Osteopenia; Translations: [Other specified disorders of bone density and structure, unspecified site] Onset: 04-04-2018 11-10-2022 Episodic Other circulatory disease (20 sources) History of transient ischemic attack; Translations: [Personal history of transient ischemic attack (TIA), and cerebral infarction without residual deficits] Onset: 07-14-2023 07-14-2023 Episodic Other ear and sense organ disorders (20 sources) Bilateral tinnitus; Translations: [Tinnitus, bilateral] Onset: 02-24-2018 11-10-2022 Episodic Other eye disorders (20 sources) Disorder of lacrimal gland; Translations: [Dry eye syndrome of bilateral lacrimal glands] Onset: 11-10-2022 11-10-2022 Episodic Other lower respiratory disease (2 sources) Shortness of breath; Translations: [Shortness of breath] Onset: 09-17-2023 Episodic Other nutritional; endocrine; and metabolic disorders (20 sources) Obesity; Translations: [Obesity, unspecified] Onset: 08-04-2018 Resolved: 11-11-2022 11-11-2022 Chronic Other nutritional; endocrine; and metabolic disorders (2 sources) Weight gain; Translations: [Abnormal weight gain] 12-23-2023 Episodic Other screening for suspected conditions (not mental disorders or infectious disease) (7 sources) Encounter for screening mammogram for malignant neoplasm of breast; Translations: [Patient encounter status] Onset: 12-11-2021 12-18-2023 Episodic Residual codes; unclassified (1 source) Family history of malignant neoplasm of other genital organs; Translations: [FAM HX MALIG NEOPLSM OTH GENIT ORGN] Onset: 12-11-2021 Episodic Residual codes; unclassified (20 sources) Bilateral lower limb edema; Translations: [Localized edema] Onset: 11-10-2022 11-10-2022 Episodic Residual codes; unclassified (20 sources) History of colectomy; Translations: [Acquired absence of other specified parts of digestive tract] Onset: 11-10-2022 11-10-2022 Episodic Residual codes; unclassified (2 sources) Postmenopausal state; Translations: [Asymptomatic menopausal state] 12-18-2023 Episodic Screening and history of mental health and substance abuse codes (20 sources) Personal history of nicotine dependence; Translations: [Ex-smoker] Onset: 10-11-2019 11-10-2022 Episodic Spondylosis; intervertebral disc disorders; other back problems (20 sources) Intervertebral disc disorders with radiculopathy, lumbar region; Translations: [Disorder of sacrum] Onset: 02-02-2022 11-10-2022 Episodic Transient cerebral ischemia (20 sources) Transient cerebral ischemic attack, unspecified; Translations: [Transient cerebral ischemia] Onset: 09-07-2021 Resolved: 07-14-2023 Chronic Unclassified (1 source) Cough R05.9 Results Test Name Value Interpretation Reference Range Facility No Panel InformationOrdered By: Minal Lyman on 04-12-2024 [facility] Work Phone: ALL CBC WITH AUTO DIFFon BASOPHILS [facility]OL[facility] WBC (Bld) 0.7 % 0.2 - 2.0 % [facility] Eosinophils/100 WBC (Bld) 8.5 % High 0.9 - 7.0 % [facility] Erythrocyte distribution width (RBC) [Ratio] 13.2 % 11.0 - 15.0 % [facility] Hematocrit (Bld) [Volume fraction] 41.1 % 36.0 - 48.0 % [facility] Hemoglobin (Bld) [Mass/Vol] 13.2 g/dL 12.0 - 16.0 g/dL [facility] IMMATURE GRANULOCYTES ABS AUTO 0.[address] [facility] Immature granulocytes/100 WBC (Bld) 0.4 % 0.0 - 0.5 % [facility] Interpretation and review of laboratory results Abnormal [facility] LYMPHOCYTES ABSOLUTE AUTO 1.[address] [facility] Lymphocytes/100 WBC (Bld) 20.6 % 20.5 - 60.0 % [facility] MCH (RBC) [Entitic mass] 28.9 pg 26.7 - 34.0 pg [facility] MCHC (RBC) [Mass/Vol] 32.1 g/dL 29.9 - 35.2 g/dL [facility] MCV (RBC) [Entitic vol] 90.1 fL 81.0 - 99.0 fL [facility] MONOCYTES ABSOLUTE AUTO 0.[address] [facility] Monocytes/100 WBC (Bld) 8.4 % 1.7 - 12.0 % [facility] NEUTROPHILS ABSOLUTE AUTO 5.[address] [facility] Neutrophils/100 WBC (Bld) 61.4 % 43.0 - 75.0 % [facility] Platelet mean volume (Bld) [Entitic vol] 11.4 fL 9.5 - 13.5 fL [facility] TBH EO # 0.7 [facility]T 237 [facility] TB RBC 4.56 [facility] TB WBC 8.3 [facility] Auditory function testson Right Ear: Mild to moderate sensorineural hearing loss from 500 Hz - 1K Hz. Moderate to severe sensorineural hearing loss above 2K Hz Left Ear: Mild to profound sensorineural hearing loss above 500 Hz. [facility] Urinalysis macro (dipstick) panel (U)on 01-28-2024 Bilirubin, UA Negative Negative - 4(70) +++ mg/dL [facility] Blood, UA Negative Negative - 50 Nas/mcL [facility] Clarity, UA Clear [facility] Color, UA Yellow [facility] Glucose, UA Negative Negative - 2000(110) ++++ mg/dL [facility] Interpretation and review of laboratory results Abnormal [facility] Ketones, UA Negative Negative - 160(16) ++++ mg/dL [facility] Leukocytes, UA Trace Negative - 500+++ Aisha/mcL [facility] Nitrite, UA Negative Negative - Positive [facility] pH, UA 6.5 5 - 9 [facility] Protein, UA Negative Negative - 1999(20) ++++ mg/dL [facility] Spec Grav, UA 1.005 1 - 1.03 [facility] Urobilinogen, UA 1.0 0.2 - 12 mg/dL [facility] No Panel Informationon 01-25 Yaa [...] Consent was given by the patient. [facility] 36on 01-19-2024 36 Pt called back and w as informed by Marii [facility] 2024 36 Stress test results From: Chris Garcia MD Sent: 01/14/2024 1:24 AM EDT To: Lakisha Castillo MA Subject: RE: Scan Her stress test was normal. Follow-up in the next 6 months. ----- Message ----- Left message to call us back [facility] Telephoneon 2024 Telephone [phone] AbimbolaTeodora peña Jessica 1950 F Date Provider Department Center 2024 [id number] DOONVAN Family History Problem Relation Age of Onset Other Mother Hypertrophic cardiomyopathy Sister Stroke Sister Other Sister Hypertrophic cardiomyopathy Brother Family Status - Relation Status Age at Mother Sister Brother [facility] 36on 11-06-2023 36 Regarding echo resul t from 10/21/2023: MD Lakisha London MA Her echo was ok, I want her to get a stress test (dx shortness of breath), if she cannot do treadmill then pranay nuclear. Spoke with patient and made her aware. She agreed to treadmill stress test. Order faxed to [facility]. Normal [facility] Office Visiton 09-17-2023 Follow-up visit [id number] Teodora Daily 1950 F Date Provider Department Center 09/17/2023 CHRIS BENZ [facility] Family History Problem Relation Age of Onset Other Mother Hypertrophic cardiomyopathy Sister Stroke Sister Other Sister Hypertrophic cardiomyopathy Brother Family Status - Relation Status Age at Mother Sister Brother Level of Service:[id number] [place] OFFICE/OUTPATIENT ESTABLISHED MOD MDM 30 MIN Normal [facility] FREE T3on 07-24-2022 FREE T3 2.66 pg/mlL Normal 2.18-3.98 [facility] Comment on above: Performed By: #### T SH, FT3 #### [facility] [address] [address] [address] Adolph Clinton FREE T4on 07-24-2022 Free T4 [Mass/Vol] 0.85 ng/dL Normal 0.76-1.46 [facility] Comment on above: Performed By: #### F T4 #### [facility] [address] [address] [address] Adolph Clinton TSHon 07-24-2022 TSH 2.124 uIU/mL Normal 0.358-3.740 [facility] Comment on above: Performed By: #### T , FT3 #### [facility] [address] [place] [address] Dr. Adolph Clinton XR FINGER MIN 2 VIEWSon 03-21 XR FINGER MIN 2 VIEWS EXAM: XR FINGER NH N 2 VIEWS HISTORY: Laceration of finger COMPARISON: [...] by: JESUS FELIZ Date: 2022-04-05 19:19 Normal [facility] COVID Quick Testingon 2021 Result Negative true[x] Media Other Quick Fluon 02-08-2022 FLUAV Ab CF (S) [Titer] Negative true[x] Media Other FLUBV Ab CF (S) [Titer] Negative true[x] Media Other MG MAMM SCREEN 3D TOD CADon 12-07-2021 MG MAMM SCREEN 3D TOD CAD Patient: TEODORA DAILY Exam Date: 12/07/2021 : 1950 Gender:F Ordering : DR SVEN PENG M.D. Admission #: [id number] Family : DR. TEODORA CHADWICK D.O. Order #: [id number] CLICK HERE TO VIEW EXAM RADIOLOGY REPORT [...] uterine cancer at age 58. LOCATION: [facility] BREAST COMPOSITION: Scattered areas fibroglandular density. [...] on 12/07/2021 at 12:13 Normal [facility] XR DEXA BONE DENSITYon 12-07 XR DEXA BONE DENSITY EXAMINATION: XR DEX A BONE DENSITY, 12/07/2021 9:39 AM EDT HISTORY: [...] by: SEBASTIAN SALGUERO Date: 2021-12-07 15:10 Normal [facility] MRI CARDIAC W WO CONTRASTon 10-16-2021 MRI CARDIAC W WO CONTRAST [facility] Department of Radiology [address] [place] [id number] ======== Patient Name: TEODORA DAILY : 1950 Sex: F Age: Race: White Pt. Location: 30 Patient Status: D Ordered Date: 09/25/2021 8:10:00 AM Completed Date: 10/16/2021 12:33 PM Requesting Provider: CHRIS GARCIA V Attending Provider: Report Copy To: Signs & Symptoms: I51.7 Cardiomegaly I10 History: Luz, L hip replacement Comments: Exam: MRI CARDIAC W WO CONTRAST ======== MRI CARDIAC W WO CONTRAST 10/16/2021 12:33 [...] 2. Electronically signed: Kane Solomon. Transcribed by: [email or web address], User Resident: Electronically Signed by: KANE SOLOMON @ 10/18/2021 02:11 PM Normal [facility] CREATININEon 09-07-2021 Creatinine [Mass/Vol] 0.77 mg/dL Normal 0.55-1.02 [facility] Comment on above: Performed By: #### C IDALIA #### [facility] [address] [place] [address] Dr. Adolph Clinton EGFR-AF SOUTH AFRICAN >60 Normal >=60 [facility] Comment on above: Performed By: #### C IDALIA #### [facility] [address] [place], [place] [address] Dr. Adolph Clinton EGFR-NON AF SOUTH AFRICAN >60 Normal >=60 [facility] Comment on above: Performed By: #### C IDALIA #### [facility] [address] [place], [place] [address] HEAD WO W CONon 2 CT HEAD WO W CON EXAMINATION: CT HEAD WO W CON HISTORY: Transient cerebral ischemia COMPARISON: None. TECHNIQUE: Multiple computed tomograms of the head were obtained with and without intravenous contrast enhancement. 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 The vasculature about the chitina of [place] appears grossly intact. IMPRESSION: There [...] by: KAILEE GARCIA Date: 2021-09-07 13:44 Normal [facility] ECHOCARDIO M/2D COMPLETEon 0 09-05-2021 ECHOCARDIO M/2D COMPLETE Patient: TEODORA DAILY Exam Date: 09/05/2021 : 1950 Gender:F Ordering : DR SVEN PENG M.D. Admission #: [id number] Family : Order #: [id number] CLICK HERE TO VIEW EXAM ECHOCARDIOGRAM REPORT [...] Area(A4C): 12.70 cm2 Left [facility] Systolic Volume(A2C): 38639 mm3 Left Atrium Systolic Volume(A4C): 93159 mm3 Mitral Valve MV E to A [...] Garcia M.D. on 09/05/2021 at 20:08 Normal [facility] Q - DEJUAN SCREEN IFA W/RFL TIT ER IFAon 05-10-2021 DEJUAN SCREEN, IFA Negative Normal NEGATIVE [facility] Comment on above: Order Comment: [facility] Testing performed at: Q, [facility], [address] [place] [address], [address] [place] [address], [phone], Director Internal Audit: Pedro Asencio MD [facility] Collection Date/Time: [facility] Results Received Date/Time: [id number] [facility] Reported Date/Time: Result Comment: DEJUAN IFA [...] AC-0: Negative International Consensus on DEJUAN Patterns (https://doi.org/10.1515/bdxi-8089-7320) For additional information, please refer to http://education.Meniga/faq/SGX545 (This link is being provided for informational/ educational purposes only.) Performed By: #### 7 832X, 249X #### [facility] Default [address] [place] [address] Q - SJOGREN'S ABS (SS-A,SS-B )on 05-10-2021 SJOGREN'S ANTIBODY (SS-A) <1.0 NEG Normal <1.0 NEG [facility] Comment on above: Order Comment: [facility] Testing performed at: [facility] [employer] [facility], [address] [place] [address], [address] [place] [address], [address] [place] [address], Director Internal Audit: Pedro Asencio MD [facility] Collection Date/Time: [facility] Results Received Date/Time: [facility] Reported Date/Time: Performed By: #### 7 [id number], 249X #### [facility] [address] [place] [address] SJOGREN'S ANTIBODY (SS-B) <1.0 NEG Normal <1.0 NEG [facility] Comment on above: Order Comment: [facility] Testing performed at: [employer] [facility], [address] [place] [address], [address] [place] [address], [address] [place] [address], Director Internal Audit: Pedro Asencio MD [facility] Collection Date/Time: [facility] Results Received Date/Time: [facility] Reported Date/Time: Performed By: #### 7 [id number], 249X #### [facility] [address] [place] [address] Q - DEJUAN CASC [id number] CHROMATIN (NUCLEOSOMAL) ANTIBODY <1.0 NEG Normal <1.0 NEG [facility] Comment on above: Order Comment: [facility] Testing performed at: [employer] [facility], [address], [address] [facility], [place], [phone], Director Internal Audit: Pedro Asencio MD [facility] Collection Date/Time: [facility] [...] 12% Sjogren's syndrome and 8% polymyositis. Ribonucleoprotein (TYPEWRITER TESTER) antibodies are to TYPEWRITER TESTER A and/or TYPEWRITER TESTER 68kD proteins; antibodies to one or both are present in >80% MCTD, 22% to 48% SLE, 14% systemic sclerosis, 12% Sjogren's and 8% polymyositis. Sm/TYPEWRITER TESTER antibodies are directed to epitopes formed in a complex of Sm and TYPEWRITER TESTER; antibodies to the Sm/TYPEWRITER TESTER complex are present in 54% to 94% MCTD, 30% SLE, 4% systemic sclerosis, and 9% Sjogren's and polymyositis. Sm antibody is present in 20% to 30% SLE, 8% MCTD, 10% polymyositis, 0% systemic sclerosis and 4% Sjogren's syndrome. Double stranded DNA, Chromatin, Ribonucleoprotein, Sm/TYPEWRITER TESTER complex and Sm antibodies are present in <2% of normal blood donors. The [facility] does not rule out autoimmune disease characterized by other autoantibody specificities such as rheumatoid arthritis, autoimmune hepatitis, primary biliary cholangitis, autoimmune thyroiditis, Pittsburg's disease, pernicious anemia, autoimmune neuropathies, vasculitis, celiac disease and bullous disease. Please contact your local [facility] laboratory if you are interested in additional testing. Performed By: #### % IN7, %, #### [facility] [address] [place] [address] DNA (DS) ANTIBODY <1 Normal [facility] Comment on above: Order Comment: [facility] Testing performed at: [email or web address] [facility], [address] , [address] [place] [address], [address] [place] [address], Director Internal Audit: Pedro Asencio MD [facility] Collection Date/Time: [facility] Results Received Date/Time: [facility] Reported Date/Time: Result Comment: IU/m L Interpretation < or = 4 Negative 5-9 Indeterminate > or = 10 Positive Performed By: #### % IN7, % #### [facility] [address] [place] [address] TYPEWRITER TESTER ANTIBODY 1.0 POS Abnormal <1.0 NEG [facility] Comment on above: Order Comment: [facility] Testing performed at: [employer], [facility], [address] [facility], [address] [place] [address], [address] [place] [address], Director Internal Audit: Pedro Asencio MD [facility] Collection Date/Time: [facility] Results Received Date/Time: [facility] Reported Date/Time: Performed By: #### % IN7, % #### [facility] [address] [place] [address] SM ANTIBODY <1.0 NEG Normal <1.0 NEG [facility] Comment on above: Order Comment: [facility] Testing performed at: [email or web address], [facility], [address] [place] [address], [address] [place] [address], [address] [place] [address], Director Internal Audit: Pedro Asencio MD [facility] Collection Date/Time: [facility] Results Received Date/Time: [facility] Reported Date/Time: Performed By: #### % IN7, % #### [facility] [address] [place] [address] SM/TYPEWRITER TESTER ANTIBODY <1.0 NEG Normal <1.0 NEG [facility] Comment on above: Order Comment: [facility] Testing performed at: [email or web address], [facility], [address] [place] [address], [address] [place] [address], [address] [place] [address], Director Internal Audit: Pedro Asencio MD [facility] Collection Date/Time: [facility] Results Received Date/Time: [facility] Reported Date/Time: Performed By: #### % IN7, % #### [facility] [address] [place] [address] Q - DEJUAN MULTIPLEX W/ REFLEX TO 11 ANTIBODY CASCADEon 05-01-2021 ANACHOICE(R) SCREEN Positive Abnormal NEGATIVE [facility] Comment on above: Order Comment: [facility] Testing performed at: [employer], [facility], [address] , [address] [place] [address], [phone], Director Internal Audit: Pedro Asencio MD [facility] Collection Date/Time: [facility] Results Received Date/Time: [facility] Reported Date/Time: Result Comment: A po sitive DEJUAN, Multiplex reflexes to the 3 Tiered Multiplex 11 Antibody [facility]. Testing in the [facility] stops at the first positive result and does not preclude additional positive results. Further laboratory testing may be considered if clinically indicated. For additional information, please refer to http://education.Meniga/faq/LJL105 (This link is being provided for informational/ educational purposes only.) Performed By: #### % IN7, % #### [facility] [address] [place] [address] Q - TYPEWRITER TESTER INTERPon 05-01-2021 INTERPRETATION SEE NOTE [facility] Comment on above: Order Comment: [facility] Testing performed at: [employer] [facility], [address] , [address] [place], [address], Director Internal Audit: Pedro Asencio MD [facility] Collection Date/Time: [facility] Results Received Date/Time: [facility] Reported Date/Time: Result Comment: TYPEWRITER TESTER antibody is found in patients with mixed connective tissue disease in high titer. This antibody may also be seen in systemic lupus erythematosus and other connective tissue diseases. A positive result at this stage of testing stops further testing, and does not preclude additional positive antibodies. Clinical correlation is required to assess the need for testing additional analytes. Performed By: #### % IN7, %[id number], #### [facility] Default [address] [place] [address] Vital Signs Date Time Vital Sign Value Performing Clinician Facility 05-04-2024 11:29-0500 Body height 158.8 cm Lindsey Raymundo MD Work Phone: [facility] 05-04-2024 11:29-0500 Body mass index (BMI) [Ratio] 35.28 kg/m2 Lindsey Raymundo MD Work Phone: [facility] 05-04-2024 11:29-0500 Body weight 88.91 kg Lindsey Raymundo MD Work Phone: [facility] 05-04-2024 11:29-0500 Diastolic blood pressure 60 mm[Hg] Lindsey Raymundo MD Work Phone: [facility] 05-04-2024 11:29-0500 Heart rate 65 /min Lindsey Raymundo MD Work Phone: [facility] 05-04-2024 11:29-0500 Systolic blood pressure 110 mm[Hg] Lindsey Raymundo MD Work Phone: [facility] 02-11-2024 11:25-0400 Body height 158.8 cm Lindsey Raymundo MD Work Phone: [facility] 02-11-2024 11:25-0400 Body mass index (BMI) [Ratio] 34.92 kg/m2 Lindsey Raymundo MD Work Phone: [facility] 02-11-2024 11:25-0400 Body weight 88 kg Lindsey Raymundo MD Work Phone: [facility] 02-11-2024 11:25-0400 Diastolic blood pressure 69 mm[Hg] Lindsey Raymundo MD Work Phone: [facility] 02-11-2024 11:25-0400 Systolic blood pressure 127 mm[Hg] Lindsey Raymundo MD Work Phone: [facility] 01-28-2024 13:42-0400 Body height 158.8 cm Joleen Hemmer PA Work Phone: [facility] 01-28-2024 13:42-0400 Body mass index (BMI) [Ratio] 35.53 kg/m2 Joleen Hemmer PA Work Phone: [facility] 01-28-2024 13:42-0400 Body weight 89.54 kg Joleen Hemmer PA Work Phone: [facility] 01-28-2024 13:42-0400 Diastolic blood pressure 72 mm[Hg] Joleen Hemmer PA Work Phone: [facility] 01-28-2024 13:42-0400 Heart rate 73 /min Joleen Hemmer PA Work Phone: [facility] 01-28-2024 13:42-0400 Respiratory rate 16 /min Joleen Hemmer PA Work Phone: [facility] 01-28-2024 13:42-0400 SaO2% (BldA) [Mass fraction] 96 % Joleen Hemmer PA Work Phone: [facility] 01-28-2024 13:42-0400 Systolic blood pressure 124 mm[Hg] Joleen Hemmer PA Work Phone: [facility] 12-23-2023 11:47-0400 Body height 158.8 cm Teodora Rinkes DO Work Phone: [facility] 12-23-2023 11:47-0400 Body mass index (BMI) [Ratio] 34.74 kg/m2 Teodora Rinkes DO Work Phone: [facility] 12-23-2023 11:47-0400 Body weight 87.54 kg Teodora Rinkes DO Work Phone: [facility] 12-23-2023 11:47-0400 Diastolic blood pressure 86 mm[Hg] Teodora Rinkes DO Work Phone: [facility] 12-23-2023 11:47-0400 Systolic blood pressure 138 mm[Hg] Teodora Rinkes DO Work Phone: [facility] 02-08-2022 13:05-0400 Body height 158.75 cm Staci Esquivel Other true[x] Media Other 02-08-2022 13:05-0400 Body mass index (BMI) [Ratio] 33.29 kg/m2 Staci Esquivel Other true[x] Media Other 02-08-2022 13:05-0400 Body temperature 101 [degF] Staci Esquivel Other true[x] Media Other 02-08-2022 13:05-0400 Body weight 83.92 kg Staci Esquivel Other true[x] Media Other 02-08-2022 13:05-0400 Respiratory rate 18 /min Staci Esquivel Other true[x] Media Other 02-08-2022 13:05-0400 SaO2% (BldA) [Mass fraction] 95 % Staci Esquivel Other true[x] Media Other Encounters Encounter Date Encounter Type Care Provider Facility Start: 05-04-2024 End: 05-04-2024 Bamboo flowsheet Lindsey Raymundo MD Work Phone: [facility] Start: 05-04-2024 End: 05-04-2024 Bamboo flowsheet Lindsey Raymundo MD Work Phone: [facility] Start: 05-04-2024 End: 05-04-2024 Office outpatient visit 10 minutes Lindsey Raymundo MD Work Phone: [facility] Comment on above: ETD (Eustachian tube dysfunction), right (Primary Dx) Start: 04-12-2024 End: 04-12-2024 Bamboo flowsheet Jose A Petitti MD Work Phone: [facility] Start: 04-12-2024 End: 04-12-2024 Bamtrisho pina Berkowitz MD Work Phone: [facility] Start: 04-12-2024 End: 04-12-2024 ambulatory JOSE BERKOWITZ Not Available Start: 04-12-2024 End: 04-12-2024 Office outpatient visit 25 minutes Jose Berkowitz MD Work Phone: [facility] Comment on above: Erythema intertrigo (Primary Dx); Seborrheic keratosis; Lentigines; Seborrheic keratosis, inflamed Start: 03-24-2024 End: 03-24-2024 Clinisync Result Encounter Lindsey Raymundo MD Work Phone: [facility] Unsolicited Start: 03-24-2024 End: 03-24-2024 Clinisync Result Encounter Lindsey Raymundo MD Work Phone: [facility] Unsolicited Start: 02-11-2024 End: 02-11-2024 Bamboo flowsvenus Raymundo [...] 02-04-2024 End: 02-04-2024 Bamboo flowsheet Afia Anton [facility] Work Phone: [facility] Start: 02-04-2024 [...] 01-28-2024 Office outpatient visit 25 minutes Joleen DALEY Work Phone: [facility] Comment on above: Ecchymosis (Primary Dx); Urine abnormality; Encounter for immunization; Abnormal urinalysis; Weight gain; Major depressive disorder, single episode, moderate (HCC) (CMS/HCC); Supraventricular tachycardia, unspecified (CMS/HCC) Start: 01-28-2024 End: 01-28-2024 ambulatory JOLEEN COURTNEY Not Available Start: 01-26-2024 End: 01-26-2024 Bamboo flowsheet Yaa Duke DEBEAKER Work Phone: [facility] Start: 01-26-2024 End: 01-26-2024 Bamboo flowsheet Yaa Duke DEBEAKER Work Phone: [facility] Start: 01-26-2024 End: 01-26-2024 Office outpatient visit 25 minutes Yaa Duke DEBEAKER Work Phone: [facility] Comment on above: Right knee pain, uns pecified chronicity (Primary Dx); Arthritis of right knee Start: 01-26-2024 End: 01-26-2024 ambulatory YAA DUKE Not Available Start: 12-23-2023 End: 12-23-2023 Patient encounter status Teodora Chadwick DO Work Phone: [facility] Work Phone: Start: 12-23-2023 End: 12-23-2023 Periodic preventive med est patient 65yrs& older Teodora Chadwick DO Work Phone: [facility] Comment on above: Encounter for gyneco logical examination without abnormal finding (Primary Dx); Encounter for screening for malignant neoplasm of vagina; Encounter for screening mammogram for breast cancer; Screening for osteoporosis; Postmenopausal status, age-related; Weight gain Start: 12-23-2023 End: 12-23-2023 ambulatory TEODORA CHADWICK Not Available Start: 11-24-2023 End: 11-24-2023 ambulatory LINDSEY RAYMUNDO Not Available Start: 09-30-2023 End: 09-30-2023 ambulatory CHET MCLAUGHLIN Not Available Start: 09-17-2023 End: 09-17-2023 ambulatory YAA B APLING Not Available Start: 09-17-2023 End: 09-17-[address] [facility] Start: 08-20-2023 End: 08-20-2023 ambulatory YAA B APLING Not Available Start: 07-14-2023 End: 07-14-2023 ambulatory JOLEEN COURTNEY Not Available Start: 06-09-2023 End: 06-09-2023 ambulatory YAA B APLING Not Available Start: 05-19-2023 End: 05-19-2023 ambulatory LINDSEY Epperson TIMMIS Not Available Start: 07-24-2022 End: 07-25-[address] SVEN PENG Facility:[facility] Start: 06-25-2022 ambulatory OVIDIO LANDRUM Facility:[facility] Start: 04-05-2022 End: 04-05-2022 ambulatory ASHTYN CALERO . Facility:[facility] Start: 02-08-2022 End: 02-08-2022 ambulatory Staci Esquivel Other true[x] Media Other Start: 02-08-2022 Office outpatient ne w 20 minutes Staci Esquivel [facility] [place] Start: 01-31-2022 End: 02-01-[address] DARYL BELTRAN . Facility: Start: 12-07-2021 End: 12-08-[address] SVEN PENG Facility:[facility] Start: 10-16-2021 End: 10-17-2021 ambulatory PHYSICIAN UNKNOWN Facility:[facility] Start: 09-07-2021 End: 09-08-[address] SVEN PENG Facility:[facility] Start: 09-05-2021 End: 09-06-[address] SVEN PENG Facility:[facility] Procedures Date Procedure Procedure Detail Performing Clinician Start: 04-12-2024 CRYOTHERAPY SKIN LESION [place] Berkowitz MD Work Phone: Start: 03-24-2024 ALL CBC WITH AUTO DIFF Generic External Data Provider Start: 02-04-2024 AUDITORY FUNCTION TESTS Afia Anton [facility] Work Phone: Start: 01-28-2024 Urnls dip stick/tablet rgnt non-auto w/o micrscp Joleen DALEY Work Phone: Start: 01-26-2024 Arthrocentesis aspir&/inj major jt/bursa w/o us Yaa Duke DEBEAKER Work Phone: Start: 10-20-2019 End: 07-14-2023 H/O: artificial joint History of artificial joint Teodora Chadwick DO Work Phone: Plan of Treatment Date Care Activity Detail Author Start: 04-12-2025 End: 04-12-2025 Patient encounter procedure 04/12/2025 11:20 AM EST Office Visit [facility] [address] [place] [address] [place] Berkowitz MD [address] [place] [address] [facility] Start: 12-30-2024 End: 12-30-2024 Patient encounter procedure 12/30/2024 11:00 AM EDT Office Visit [facility] [address] [place] [address] Teodora Chadwick DO [address] [place] [address] [facility] Start: 12-22-2024 Medicare Annual Wellness (AWV) Medicare Annual Wellness (AWV) [facility] Start: 09-28-2024 End: 09-28-2024 Patient encounter procedure 09/28/2024 10:45 AM EDT Office Visit [facility] [address] [place] [phone] Chet Mclaughlin, DEBEAKER [address] [place], [place] [id number] [facility] Start: 05-12-2024 End: 05-12-2024 Patient encounter procedure 05/12/2024 9:00 AM EST Office Visit [facility] [address] [place] [phone] [facility] Start: 05-04-2024 End: 05-04-2024 Patient encounter procedure [facility] Comment on above: Arrived Start: 04-26-2024 End: 04-26-2024 Clinical Support 04/26/2024 9:45 AM EST Clinical Support [facility] [address] [place] [phone] Afia Anton, [facility] [address] [place] [address] [facility] Start: 04-12-2024 End: 04-12-2024 Patient encounter procedure 04/12/2024 11:05 AM EST Office Visit [facility] [address] [place] [address] [place] Berkowitz MD [address] [place] [address] [facility] Start: 03-02-2024 End: 03-02-2024 Patient encounter procedure 03/02/2024 11:15 AM EST Office Visit [facility] [address] [place] [phone] Jose Berkowitz MD [address] [place] [address] [facility] Start: 02-11-2024 End: 02-11-2024 Patient encounter procedure [facility] Comment on above: Arrived Start: 02-04-2024 End: 02-04-2024 Clinical Support [facility] Comment on above: Arrived Start: 01-28-2024 End: 01-28-2024 Patient encounter procedure 01/28/2024 1:30 PM EDT Office Visit [facility] [address] [place] [address] Joleen Courtney PA [address] [place] [address] Arrived [facility] Comment on above: Arrived Start: 01-26-2024 End: 01-26-2024 Patient encounter procedure 01/26/2024 10:45 AM EDT Office Visit [facility] [address] [place] [address] Yaa Duke, DEBEAKER [address] [place] [address] Arrived [facility] Comment on above: Arrived Start: 01-20-2024 End: 01-20-2024 Patient encounter procedure 01/20/2024 11:20 AM EDT Office Visit [facility] [address] [place] [address] Jose Berkowitz MD [address] [place], [place] [id number] [facility] Start: 12-21-2023 Influenza vaccination Influenza Vacc ine (#1) [facility] DBT Breast - bilater al screening Bilateral screening mammogram with tomosynthesis Imaging Routine Encounter for screening mammogram for breast cancer Ordered: 12/23/2023 [facility] Comment on above: Ordered: 12/23/2023 DXA Skeletal system Views for bone density DEXA bone density Imaging Routine Screening for osteoporosis Postmenopausal status, age-related Ordered: 12/23/2023 [facility] Comment on above: Ordered: 12/23/2023 SENDOUT TEST MISCELLANEOUS [facility] SENDOUT TEST MISCELLANEOUS [facility] Lab Routine Encounter for screening for malignant neoplasm of vagina Ordered: 12/23/2023 [facility] Work Phone: Comment on above: Ordered: 12/23/2023 URINARY TRACT INFECT ION (HTRX) URINARY TRACT INFECTION (HTRX) Lab Routine Urine abnormality Abnormal urinalysis Ordered: 01/28/2024 [facility] Work Phone: Comment on above: Ordered: 01/28/2024 Immunizations Immunization Date Immunization Notes Care Provider [facility] 01-28-2024 Influenza, High-dose Seasonal, Quadrivalent, Preservative Free Joleen DALEY Work Phone: [facility] 02-05-2023 Influenza, Seasonal, Quadrivalent, Adjuvanted Joleen DALEY Work Phone: [facility] 02-05-2023 influenza virus vacc ine, unspecified formulation Teodora Chadwick DO Work Phone: [facility] 04-05-2022 diphtheria, tetanus toxoids and pertussis vaccine Teodora Farrukh DO Work Phone: [facility] 03-25-2022 influenza, high dose seasonal, preservative-free Teodora Rinkes DO Work Phone: [facility] 01-25-2021 Influenza, High-dose Seasonal, Quadrivalent, Preservative Free Teodora Rinkes DO Work Phone: [facility] 02-25-2020 Influenza, Seasonal, Quadrivalent, Adjuvanted Teodora Rinkes DO Work Phone: [facility] 10-11-2019 pneumococcal polysaccharide vaccine, 23 valent Teodora Chadwick DO Work Phone: [facility] 06-06-2019 zoster vaccine recombinant K athleen Rinkes DO Work Phone: [facility] 01-28-2019 influenza, high dose seasonal, preservative-free Teodora Rinkes DO Work Phone: [facility] 02-13-2018 influenza, high dose seasonal, preservative-free Teodora Rinkes DO Work Phone: [facility] 01-08-2018 pneumococcal conjuga te vaccine, 13 valent Teodora Rinkes DO Work Phone: [facility] 02-12-2017 Influenza, High-dose Seasonal, Quadrivalent, Preservative Free Teodora Rinkes DO Work Phone: [facility] 01-27-2002 zoster vaccine, live Kathlee n Rinkes DO Work Phone: [facility] Payers Date Payer Category Payer Medicare [facility] MEDICARE ADVANTAGE [facility] MEDICARE [id number] 2020-Present [address] [place] [address] [id number] 2020 Medicare (Managed Care) [employer] ED[employer] ADVANTAGE [id number] 5 1959 Private Health Insurance [id number] 1948 Unknown [id number] 2.16.840.1.751145.3.579 .2.647 1948 Unknown [id number] 2..840.1.575667.3.579 .2.593 1948 Unknown [id number] 2.16.840.1.419176.3.579 .2.593 1948 Unknown [id number] 2.16.840.1.031339.3.579 .2.593 1948 Unknown [id number] 2.16.840.1.413334.3.579 .2.593 1948 Unknown [id number] 2.16.840.1.000941.3.579 .2.593 1948 Unknown [id number] 2.16.840.1.227616.3.579 .2.593 1948 Unknown [id number] 2.16.840.1.525123.3.579 .2.593 1948 Unknown [id number] 2.16.840.1.605730.3.579 .2.125 1948 Unknown [id number] 2.16.840.1.070172.3.579 .2.125 1948 Unknown [id number] 2.16.840.1.858443.3.579 .2.125 1948 Unknown [id number] 2.16.840.1.409995.3.579 .2.125 1948 Unknown [id number] 2.16.840.1.072163.3.579 .2.125 1948 Unknown [id number] 2.16.840.1.259726.3.579 .2.125 1948 Unknown [id number] 2.16.840.1.771706.3.579 .2.125 1948 Unknown [id number] 2.16.840.1.487092.3.579 .2.125 1948 Unknown [id number] 2.16.840.1.229442.3.579 .2.125 1948 Unknown [id number] 2.16.840.1.242284.3.579 .2.1258 1948 Unknown [id number] 2.16.840.1.708436.3.579 .2.1258 1948 Unknown [id number] 2.16.840.1.399067.3.579 .2.1258 1948 Unknown [id number] 2.16.840.1.427660.3.579 .2.1258 1948 Unknown [id number] 2.16.840.1.962721.3.579 .2.1258 1948 Unknown [id number] 1950 Unknown [id number] Social History Date Type Detail Facility Start: 05-18-2023 End: 07-14-2023 Sex Assigned At [facility] Start: 12-03-2022 End: 05-04-2024 Tobacco smoking status [facility] Ex-smoker [facility] Start: 11-19-1966 End: 04-21-2007 History of tobacco use Current smoker [facility] Start: 11-19-1966 End: 04-21-2007 History of tobacco use Cigarette Smoker [facility] Start: 12-03-2022 End: 07-14-2023 Cigarettes smoked current (pack per day) - Reported 1 [facility] Start: 12-03-2022 End: 05-04-2024 Tobacco use and exposure Smokeless tobacco non-user [facility] Start: 01-26-2024 End: 05-04-2024 Alcoholic beverage intake Current drinker of alcohol [...] Gender identity Identifies as female gender (finding) [facility] Start: 09-06-2022 Sexual orientation Heterosexual (fin ding) [facility] Clinical Notes 01-31-2022 to 05-04-2024 Lindsey Raymundo MD - 05/04/2024 11:20 AM Mariano Berkowitz MD - 04/12/2024 11:05 AM Song Raymundo MD - 02/11/2024 11:20 AM EDTAfia Anton [facility] - 02/04/2024 8:30 AM EDT Note Date & Type Note Facility 05-04-2024 History of Present illness Narrative Subjective Patient ID: Teodora Daily is a 74 y.o. female who presents for Ear Problem (S/p Rt tube. 04/01/24 [facility]) Family History Problem Relation Name Age of [...] Osteopenia 04/04/2018 Overactive bladder 04/04/2018 Primary hypertension ([facility]) 05/11/2018 Osteoarthritis of spine with radiculopathy, lumbar region 11/10/2022 Primary osteoarthritis of both knees 11/10/2022 Primary osteoarthritis of left hip 11/10/2022 Punctate keratitis of both eyes 11/10/2022 Sensorineural hearing loss, bilateral 02/24/2018 Sjogren's syndrome ([facility]) 04/27/2021 Multiple perforations of right tympanic membrane 05/19/2023 Left ventricular hypertrophy 09/24/2021 History of TIA (transient ischemic attack) 07/14/2023 History of left hip replacement 07/14/2023 Resolved Ambulatory Problems Diagnosis Date Noted Gastroesophageal reflux disease 07/29/2018 History of artificial joint 10/20/2019 Obesity 08/04/2018 Reactive airway disease ([facility]) 10/26/2020 TIA (transient ischemic attack) [...] COLONOSCOPY 2013 FOOT SURGERY multiple foot sx, [id number] HYSTERECTOMY 1998 IR ABLATION BONE 12/15/2018 LT RFA T12-L3 IR INJECTION NERVE BLOCK 04/09/2018 L2-L5 nerve blocks IR INJECTION NERVE BLOCK Left 07/21/2018 T12-L3 nerve blocks LUMBAR EPIDURAL INJECTION 04/03/2021 OTHER SURGICAL HISTORY 1985 T Tube, [place] PARTIAL HIP REPLACEMENT 08/2018 TOE SURGERY TONSILLECTOMY TOTAL HIP ARTHROPLASTY Left 09/07/2018 Dr Neves TYMPANOSTOMY TUBE PLACEMENT Right 04/01/24 Dr Raymundo Allergies Allergen Reactions Sulfa Antibiotics Anaphylaxis, Hives, [...] tablet twice a day by oral route. baclofen (Lioresal) 10 MG tablet TAKE 1/2 TO 1 TABLET BY MOUTH TWICE A DAY NEEDED cholecalciferol (Vitamin D-3) 50 MCG (2000 UT) [...] Silver) chewable tablet every 12 (twelve) hours. nystatin (Mycostatin) 823626 UNIT/GM powder Apply to the affected area under the breasts, once daily, 30 day supply 60 g 11 nystatin (Mycostatin) 122429 UNIT/GM powder Apply to the affected area, once daily, 30 day supply 60 g 11 PARoxetine (Paxil) 20 MG tablet Take 1 tablet (20 mg) by mouth in the morning. 100 tablet 3 No current facility-administered medications on file prior to visit. Objective Last Recorded Vitals Vitals: 05/04/24 1129 BP: 110/60 Pulse: 65 ENT Physical Exam Ear Ear comments: RT - TIT&P, dry Assessment/Plan Diagnoses and all orders for this visit: ETD (Eustachian tube dysfunction), right Tube looks good documented in this encounter [facility] 04-12-2024 History of Present illness Narrative Skin Check Location: Patient requests a full body skin examination Dermatologic history: no history of skin cancer, no history of atypical moles Last visit: 1 year ago Lesions: Location: forehead Duration: months Quality: itchy Associated symptoms: enlarged, rough Treatments: none Rash Location: inframammary area Duration: weeks Quality: itchy Associated symptoms: red patches Current treatments: none Established patient All pertinent medical history, medications, and allergies were reviewed. General Exam: alert, oriented to person, place, and time, normal affect, well appearing Unaccompanied Scalp, Examined , exam limited by hair Right leg Examined Head, Face Examined Left leg Examined Neck Examined Right foot Examined Chest Examined Left foot Examined Back Examined Buttocks Examined Abdomen Examined Digits,nails: Examined Right arm Examined Left arm Examined Lymphatics: Not examined Hands Examined 1. Seborrheic keratosis Stuck on verrucous, faustin-brown papules and plaques. Patient was counseled regarding these benign growths. Removal is normally not necessary, but they may be removed if they are symptomatic or for cosmetic reasons. 2. Lentigines Scattered faustin macules in sun-exposed areas. The patient was informed that lentigines are benign pigmented lesions that occur on sun-exposed and sun-damaged skin. No treatment is necessary. Recommended regular use of broad spectrum sunscreen SPF 30 or higher 3. Seborrheic keratosis, inflamed (8) Left Forehead, Left Hindu, Mid Forehead (2), Right Frontal Scalp, Right Hindu, Right Temporal Scalp (2) Medill and brown stuck on verrucous scaly papule with surrounding erythema The patient was informed that symptomatic seborrheic keratoses are benign growths that become inflamed, itchy, tender, traumatized, caught on clothing, or bleed. Symptomatic lesions can be treated with cryotherapy or curretage. Thicker lesions treated with cryotherapy may require more than one treatment. The patient was instructed to notify the office if abnormal redness or tenderness develops at the treatment site. Cryotherapy today, see procedure note. Diagnosis: Inflamed seborrheic keratosis Indication: Inflamed Consent: Verbal consent was obtained and risks were discussed, including, but not limited to risks of scarring, darker or supervisor conditioning yard pigmentary changes, recurrence, incomplete removal and infection. Method: Liquid nitrogen was used to treat the lesion(s) with two 5-10 second freeze-thaw cycles Number of lesions treated: 8 Post-procedure instructions: Instructions were given orally and in writing. The office will be contacted if the lesion fails to resolve despite treatment, or if a side effect develops such as abnormal crusting, scabbing, redness or tenderness Cryotherapy, skin lesion - Left Forehead, Left Hindu, Mid Forehead (2), Right Frontal Scalp, Right Hindu, Right Temporal Scalp (2) 4. Erythema intertrigo Left Inframammary Fold, Right Inframammary Fold Medill moist plaques. Stable but not at treatment goal. Discussed that intertrigo is a chronic condition that can be controlled but not cured. Recommend keeping areas as dry as possible to avoid flares. Start Nystatin powder every day. Notify clinic if worsening despite treatment. Related Medications nystatin (Mycostatin) 229976 UNIT/GM powder Apply to the affected area under the breasts, once daily, 30 day supply Next Visit: 1 year documented in this encounter [facility] 02-11-2024 History of Present illness Narrative Subjective [...] as Sjogren's, bilateral 11/10/2022 Obstructive hypertrophic cardiomyopathy ([facility]) 11/10/2022 Lumbosacral spondylosis without myelopathy 04/04/2018 Obesity (BMI 30.0-34.9) 11/10/2022 Osteopenia 04/04/2018 Overactive bladder 04/04/2018 Primary hypertension ([facility]) 05/11/2018 Osteoarthritis of spine with radiculopathy, lumbar region 11/10/2022 Primary osteoarthritis of both knees 11/10/2022 Primary osteoarthritis of left hip 11/10/2022 Punctate keratitis of both eyes 11/10/2022 Sensorineural hearing loss, bilateral 02/24/2018 Sjogren's syndrome ([facility]) 04/27/2021 Multiple perforations of right tympanic membrane 05/19/2023 Left ventricular hypertrophy 09/24/2021 History of TIA (transient ischemic attack) 07/14/2023 History of left hip replacement 07/14/2023 Resolved Ambulatory Problems Diagnosis Date Noted Gastroesophageal reflux disease 07/29/2018 History of artificial joint 10/20/2019 Obesity 08/04/2018 Reactive airway disease ([facility]) 10/26/2020 TIA (transient ischemic attack) 11/10/2022 Perforation of right tympanic membrane 05/19/2023 Past Medical History: Diagnosis Date Arthritis Bladder spasms Bunion Chronic lumbar pain Chronic myringitis of right ear COVID-19 06/2021 Ear problems Eustachian tube dysfunction, right Hammer toe HL (hearing loss) Lumbosacral disc disease Tendinitis of knee Tinnitus Past Surgical History: Procedure Laterality Date ADENOIDECTOMY BLADDER SUSPENSION 2014 BLEPHAROPTOSIS REPAIR 2019 Eye lid surgery BUNIONECTOMY CATARACT EXTRACTION 01/2019 COLECTOMY 2008 COLONOSCOPY 2013 FOOT SURGERY multiple foot sx, [phone] HYSTERECTOMY 1998 IR ABLATION BONE 12/15/2018 LT RFA T12-L3 IR INJECTION NERVE BLOCK 04/09/2018 L2-L5 nerve blocks IR INJECTION NERVE BLOCK Left 07/21/2018 T12-L3 nerve blocks LUMBAR EPIDURAL INJECTION 04/03/2021 OTHER SURGICAL HISTORY 1985 T Tube, [place] PARTIAL HIP REPLACEMENT 08/2018 TOE SURGERY TONSILLECTOMY [...] tod hearing aids documented in this encounter [facility] 02-04-2024 History of Present illness Narrative History: [...] Type Ad tympanogram documented in this encounter [facility] 01-28-2024 History of Present illness Narrative Images [...] weeks. 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 get supervisor conditioning yard in color then goes back to darker [...] COLONOSCOPY 2013 FOOT SURGERY multiple foot sx, [phone] HYSTERECTOMY 1998 IR ABLATION BONE 12/15/2018 LT RFA T12-L3 IR INJECTION NERVE BLOCK 04/09/2018 L2-L5 nerve blocks IR INJECTION NERVE BLOCK Left 07/21/2018 T12-L3 nerve blocks LUMBAR EPIDURAL INJECTION 04/03/2021 OTHER SURGICAL HISTORY 1985 T Tube, [place] PARTIAL HIP REPLACEMENT 08/2018 TOE SURGERY TONSILLECTOMY [...] ecchymosis resolution. Encouraged her to show Dr. Berkowitz the area if it persists until her appt in her office. Urine abnormality - POCT Urinalysis dipstick - URINARY TRACT INFECTION (HTRX) UA results reviewed with pt. Encounter for immunization - Influenza, high-dose seasonal, quadrivalent, PF (LLQ712) (Fluzone High Dose Quad North 0.7mL dose) [...] Medicare Wellness Visit. documented in this encounter [facility] 01-26-2024 History of Present illness Narrative Associated Order(s): L Inj/Asp: R knee Post-Procedure Diagnose(s): Arthritis of right knee Subjective Patient ID: Teodora Daily is a 74 y.o. female. RT Knee *Wants inj Last saw Caren 09/17/23 for the RT knee and was referred to [facility] for eval for visco supplementation, she [...] for her back, sees pain management at [facility]. Admits ice prn. Also uses heat and voltaren occas with some relief, but gets the most relief with ice. Good rom, pain with ROM. Denies waking at night. TX: XR [facility] 08/20/23, heat, aleve, IBU, depo injection 04/23/22, depo injection 10/29/22, MRI [facility] 12/17/22, Depo injx 01/07/23 and 03/18/23, [...] tolerated, f/u prn documented in this encounter [facility] 12-23-2023 History of Present illness Narrative Images from the original note were not included. Teodora Chadwick D.O. Obstetrics and Gynecology Patient: Kamila Dailyhleen Jessica : 1950 (73 y.o.) Yearly Wellness Exam Date: 12/23/2023 Reason for Visit - Chief Complaint Patient presents with Gynecologic Exam Pt c/o wt. Gain, Pt states within week notice 10-15 lb difference. Pt states she is not an over eater. Unsure what happened. Denies feeling bloated. Pt c/o constipation. Pt notice spot on Rt. Breast, thought she had a pimple, states now is little and smooth. Denies any pain. Denies vaginal bleeding/spotting. Visit Vitals BP 138/86 Ht 5' 2.5 Wt 193 lb BMI 34.74 kg/m Smoking Status Former BSA 1.96 m Allergies Allergen Reactions Sulfa Antibiotics Anaphylaxis, Hives, Itching, Rash, Shortness of breath and Swelling Other Reaction(s): hives, swelling Itching, throat swelling, hives Hydrocodone Can take as needed, gets itching if takes as prescribed on hourly basis Oxycodone Hives, Itching and Rash Other Reaction(s): itching, hives Itching, hives History of Present Illness, Associated Treatments and Results - OB History Para Term AB Living 2 2 2 0 0 2 SAB IAB Ectopic Multiple Live Births 0 0 0 0 0 # Outcome Date GA Lbr Joey/2nd Weight Sex Type Anes PTL Lv 2 Term 1 Term Obstetric Comments Pap smear 12/05/21 wnl, Mammogram 12/19/22 wnl @ [facility], DEXA 2021 osteopenia Review of Systems - General: Chills denies. Allergy/Immunology: Rash Denies. ENT: Denies Difficulty swallowing. Endocrine: Denies Cold intolerance denies. Heat intolerance denied. Respiratory: Denies Chest pain denies. Shortness of breath denies. Breast: Denies Bloody nipple discharge denies. Breast lump denies. Cardiovascular: Denies Chest pain. Gastrointestinal: Abdominal pain denies. Blood in stool denies. Hematology: Easy bruising denies. Prolonged bleeding denies. Women Only: Breast lump denies. Vaginal bleeding between periods is denied. Vaginal discharge/itching denied. Genitourinary: Blood in urine denies. Painful urination denies. Incontinence denies. Skin: Hair changes. Neurologic: Seizures denied. Stroke denies. Psychiatric: Anxiety denies. Depressed mood denies. Medication Documentation Review Audit Reviewed by Joana Ruvalcaba MA (Highway [employer] Teacher) on 12/23/23 at 1143 Medication Order Taking? Sig Documenting Provider Last Dose Status Ascorbic Acid (vitamin C) 1000 MG tablet [id number] No 1 (one) time each day at the same time. Historical ProviderMD Taking Active aspirin 81 MG chewable tablet [id number] No Chew 1 tablet twice a day by oral route. Historical ProviderMD Taking Active calcium carbonate 1500 (600 Ca) MG tablet [id number] No every 12 (twelve) hours. Historical ProviderMD Taking Active cholecalciferol (Vitamin D-3) 50 MCG (1999) capsule [id number] No 1 capsule 1 (one) time each day at the same time. Historical ProviderMD Taking Active cyanocobalamin (Vitamin B-12) 100 MCG tablet [id number] No Vitamin B12 Historical Provider, Taking Active cyclobenzaprine (Flexeril) 10 MG tablet [id number] Take 10 mg by mouth at bedtime Lindsey Raymundo MD Active cycloSPORINE (Restasis) 0.05 % ophthalmic emulsion [id number] No instill 1 drop into both eyes twice a day as directed Historical Provider, Taking Active fexofenadine-pseudoephedrine ER (Carolin-D) 60-120 MG 12 hr tablet [id number] No Take 1 tablet by mouth 2 (two) times a day as needed for allergies. Do not crush, chew, or split. Historical Provider, Taking Active irbesartan (Avapro) 150 MG tablet [id number] No TAKE 1 TABLET BY MOUTH EVERY DAY FOR 100 DAYS Sven Peng MD Taking Active metoprolol succinate XL (Toprol-XL) 25 MG 24 hr tablet [id number] No Take 1 tablet by mouth in the morning. Historical Provider, Taking Active Multiple Vitamins-Minerals (Centrum Silver) chewable tablet [id number] No every 12 (twelve) hours. Historical Provider, Taking Active PARoxetine (Paxil) 20 MG tablet [id number] No Take 1 tablet (20 mg) by mouth in the morning. Sven Peng MD Taking Active zinc gluconate 50 MG tablet [id number] No 1 (one) time each day at the same time. Historical Provider, Taking Active Past Medical History: Diagnosis Date Allergic rhinitis Arthritis Bladder spasms Bunion Chronic lumbar pain Chronic myringitis of right ear COVID-19 06/2021 Ear problems Eustachian tube dysfunction, right Hammer toe HL (hearing loss) Lumbosacral disc disease Osteopenia Tendinitis of knee TIA (transient ischemic attack) 11/10/2022 Tinnitus Past Surgical History: Procedure Laterality Date ADENOIDECTOMY BLADDER SUSPENSION 2014 BLEPHAROPTOSIS REPAIR 2018 Eye lid surgery BUNIONECTOMY CATARACT EXTRACTION 01/2019 COLECTOMY 2008 COLONOSCOPY 2013 FOOT SURGERY multiple foot sx, [phone] HYSTERECTOMY 1998 IR ABLATION BONE 12/15/2018 LT RFA T12-L3 IR INJECTION NERVE BLOCK 04/09/2018 L2-L5 nerve blocks IR INJECTION NERVE BLOCK Left 07/21/2018 T12-L3 nerve blocks LUMBAR EPIDURAL INJECTION 04/03/2021 OTHER SURGICAL HISTORY 1985 T Tube, [place] PARTIAL HIP REPLACEMENT 08/2018 TOE SURGERY TONSILLECTOMY TOTAL HIP ARTHROPLASTY Left 09/07/2018 Dr Neves TYMPANOSTOMY TUBE PLACEMENT Family History Problem Relation Name Age of Onset Alzheimer's disease Mother Mariah Hypertension Mother Mariah Pernicious anemia Father Alcohol abuse Father Suicidality Paternal Grandfather Heart disease Sibling Heart failure Sister Mey Putnam Heart failure Brother Suleman Hypertension Sister Mey, Indy Migraines Sister Indy Stroke Sister Mey Physical Exam - General appearance, mentation, extraocular movements, facial strength and movement, hearing, upper and lower extremity strength and tone, sensation to gross testing, coordination, and gait are normal or at baseline unless noted below. General Examination: GENERAL APPEARANCE: alert oriented well developed, well nourished. HEAD: normocephalic atraumatic. EYES: sclera anicteric. EARS: no obvious hearing deficit. SKIN: warm and dry. HEART: regular rate and rhythm. LUNGS: clear to auscultation bilaterally. CHEST: axillary nodes grossly normal. BREASTS: no masses palpable bilaterally, normal nipples bilaterally, cyst of skin right breast ABDOMEN: soft, nontender, nondistended, no masses palpable. BACK: no costovertebral angle tenderness, no obvious scoliosis/kyphosis. FEMALE GENITOURINARY: atrophic vaginal mucosa, cervix/uterus surgically absent, adnexa WNL EXTREMITIES: no edema. NEUROLOGIC: alert and oriented. PSYCH: cooperative with exam. Diagnoses and all orders for this visit: Encounter for gynecological examination without abnormal finding Encounter for screening for malignant neoplasm of vagina - SENDOUT TEST MISCELLANEOUS [facility] Encounter for screening mammogram for breast cancer - Bilateral screening mammogram with tomosynthesis Screening for osteoporosis - DEXA bone density Postmenopausal status, age-related - DEXA bone density Weight gain Pap, pelvic and breast exam completed. Findings of today's exam discussed with the patient. Continue MSBE. Ca/Vit D recommendations reviewed with the patient. The patient is to contact the office with any changes to her gynecological condition. The patient is to return in 1 year or as needed Discussed weight gain- since large amount of weight in a short amount of time, did advise patient to contact PCP. Denies SOB at rest ICD-10-CM 1. Encounter for gynecological examination without abnormal finding Z01.419 2. Encounter for screening for malignant neoplasm of vagina Z12.72 SENDOUT TEST MISCELLANEOUS [facility] 3. Encounter for screening mammogram for breast cancer Z12.31 Bilateral screening mammogram with tomosynthesis 4. Screening for osteoporosis Z13.820 DEXA bone density 5. Postmenopausal status, age-related Z78.0 DEXA bone density 6. Weight gain R63.5 documented in this encounter [facility] 09-17-2023 Note OR Cardiology - [facility] Subjective Teodora Daily is a 73 [...] No swelling. Cervical (more content not included)... [facility] 02-08-2022 Evaluation note Encounter Date Diagnosis Assessment [...] no improvement in 2 to 3 days true[x] Media Other 10-13-2022 NoteCONSULTATION CONSULTATION DATE: 01/31/2022 HISTORY [...] a p.r.n. basis at the patient's discretion.[facility] Right knee pain, unspecified [...] (SNHL), bilateral [facility] Diagnosis Encounter for gynecological examination without abnormal finding- Primary Encounter for screening for malignant neoplasm of vagina Encounter for screening mammogram for breast cancer Screening for osteoporosis Special screening for osteoporosis Postmenopausal status, age-related Weight gain Other symptoms concerning nutrition, metabolism, and development [facility] Diagnosis Erythema intertrigo- Primary Other specified erythematous condition Seborrheic keratosis Lentigines Seborrheic keratosis, inflamed [facility] Diagnosis ETD (Eustachian tube dysfunction), right- Primary [facility] Narrative - Reported* Type Description Date Medical History osteoporosis Medical History herniated disc Medical History hypertrophic cardiomyopathy Surgical History Hip Replacement 2017 true[x] Media Other Summary Purpose Family History No Family History Records FoundNo Family History Records FoundNo Family History Records FoundNo Family History Records FoundNo Family History Records Found Advance Directives No Advanced Directives Records FoundNo Advanced Directives Records FoundNo Advanced Directives Records FoundNo Advanced Directives Records FoundNo Advanced Directives Records Found Reason for Referral Specialty Diagnoses / Procedures Referred By Celine hammond Referred To Contact Orthopaedic Surgery Diagnoses Arthritis of right knee Procedures L Inj/Asp: R knee Aplalmaz, Yaa Lopez NP [address] [place] [address] Referral ID Status Reason Start Date Expiration Date V isits Requested Visits Authorized [id number] Authorized 01/26/2024 07/24/2024 1 1 Additional Source Comments INFORMATION SOURCE (unrecogn ized section and content) DATE CREATED AUTHOR 05/13/2021 [facility] dical Specialist DATE CREATED AUTHOR AUTHOR'S ORGANIZ ATION 10/23/2021 [facility] DATE CREATED AUTHOR AUTHOR'S ORGANIZ ATION 08/03/2022 [facility] DATE CREATED AUTHOR AUTHOR'S ORGANIZ ATION 02/16/2024 [facility] DATE CREATED AUTHOR AUTHOR'S ORGANIZ ATION 04/14/2024 [facility] dical Specialists EPIC REASON FOR [...] Ear Problem Follow up audio 01/19 10/12 Reason Comments Gynecologic Exam Pt c/o wt. Gain, Pt states within week notice 10-15 lb difference. Pt states she is not an over eater. Unsure what happened. Denies feeling bloated. Pt c/o constipation. Pt notice spot on Rt. Breast, thought she had a pimple, states now is little and smooth. Denies any pain. Denies vaginal bleeding/spotting. Reason Comments Skin Check Rash Reason Comments Ear Problem S/p Rt tube. 4 [facility] Care Teams (unrecognized sec tion and content) Branch Controller Relationship Specialty Start Date End Date Sven Peng MD [address] [place] [address] PCP - [employer] 04/21/20 Sven Peng MD [address] [place] [address] PCP - General Internal Medicine 08/27/22 Branch Controller Relationship Specialty Start Date End Date Sven Peng MD [address] [place] [address] PCP - [employer] 04/21/20 Sven Peng MD [address] [place] [address] PCP - General Internal Medicine 08/27/22 Branch Controller Relationship Specialty Start Date End Date Sven Peng MD [address] [place] [address] PCP - [employer] 04/21/20 Sven Peng MD [address] [place] [address] PCP - General Internal Medicine 08/27/22 Branch Controller Relationship Specialty Start Date End Date Sven Peng MD [address] [place] [address] PCP - [employer] 04/21/20 Sven Peng MD [address] [place] [address] PCP - General Internal Medicine 08/27/22 Branch Controller Relationship Specialty Start Date End Date Sven Peng MD [address] [place] [address] PCP - [employer] 04/21/20 Sven Peng MD [address] [address] [place] [address] PCP - General Internal Medicine 08/27/22 Branch Controller Relationship Specialty Start Date End Date Sven Peng MD [address] [place] [address] PCP - [employer] 04/21/20 Sven Peng MD [address] [place] [address] PCP - General Internal Medicine 08/27/22 Branch Controller Relationship Specialty Start Date End Date Sven Peng MD [address] [place] [address] PCP - [employer] 04/21/20 Sven Peng MD [address] [place] [address] PCP - General Internal Medicine 08/27/22 Branch Controller Relationship Specialty Start Date End Date Sven Peng MD [address] [place] [address] PCP - [employer] 04/21/20 Sven Peng MD [address] [place] [address] PCP - General Internal Medicine 08/27/22 Branch Controller Relationship Specialty Start Date End Date Sven Peng MD [address] [place] [address] PCP - [employer] 04/21/20 Sven Peng MD [address] [place] [address] PCP - General Internal Medicine 08/27/22 Branch Controller Relationship Specialty Start Date End Date Sven Peng MD [address] [place] [address] PCP - [employer] 04/21/20 Sven Peng MD [address] [place] [address] PCP - General Internal Medicine 08/27/22 Branch Controller Relationship Specialty Start Date End Date Sven Peng MD [address] [place] [address] PCP - [employer] 04/21/20 Sven Peng MD [address] [place] [address] PCP - General Internal Medicine 08/27/22 FOR [...] BE BASED ON THE PRIMARY CLINICAL RECORDS. [facility] [facility]. provides no warranty or guarantee of the accuracy or completeness of information in this document.
--- NOTE | 2024-05-05 15:27 | PM.CN ---
Consult Note: HPI Data of Consult Patient: known to practice within the last 3 years Requesting Physician: Mariaelena Romano NP Primary Care Provider: GERA GALEANO Consult Narrative Reason for consult: f/u Narrative: Teodora Daily a pleasant 74 year old female with chronic low back pain presents for evaluation and management. Recently underwent left superior gluteal nerve RFA with 100% improvement for a few weeks, now noting 50% improvement. Patient reporting increased spasms and tightness in low back, pain 5/10 increasing to 8/10. utilizing tylenol, motrin, baclofen 10mg BID PRN with mild relief. ANGELLA 40% cc:: CC: Mariaelena Romano NP Review of Systems ROS Status of ROS 10 or more systems reviewed and unremarkable except as noted in history and below Musculoskeletal Reports: back pain PFSH [facility] Medical History (Updated 05/05/24 @ 15:29 by Mariaelena Romano NP) Bowel obstruction ?K56.609 - Unspecified intestinal obstruction, unspecified as to partial versus complete obstruction (ICD-10) Dyspnea on exertion ?R06.09 - Other forms of dyspnea (ICD-10) Anemia ?D64.9 - Anemia, unspecified (ICD-10) Depression ?F32.A - Depression, unspecified (ICD-10) Anxiety ?F41.9 - Anxiety disorder, unspecified (ICD-10) Snores ?R06.83 - Snoring (ICD-10) COVID-19 ?U07.1 - COVID-19 (ICD-10) Migraine ?G43.909 - Migraine, unspecified, not intractable, without status migrainosus (ICD-10) IHSS (idiopathic hypertrophic subaortic stenosis) ?I42.1 - Obstructive hypertrophic cardiomyopathy (ICD-10) Knee tendinitis ?M76.899 - Other specified enthesopathies of unspecified lower limb, excluding foot (ICD-10) Hammertoe ?M20.40 - Other hammer toe(s) (acquired), unspecified foot (ICD-10) Arthritis ?M19.90 - Unspecified osteoarthritis, unspecified site (ICD-10) Reactive airway disease ?J45.909 - Unspecified asthma, uncomplicated (ICD-10) GERD (gastroesophageal reflux disease) ?K21.9 - Gastro-esophageal reflux disease without esophagitis (ICD-10) TIA (transient ischemic attack) ?G45.9 - Transient cerebral ischemic attack, unspecified (ICD-10) Left ventricular hypertrophy ?I51.7 - Cardiomegaly (ICD-10) Sjogrens syndrome ?M35.00 - Sjogren syndrome, unspecified (ICD-10) Hearing loss ?H91.90 - Unspecified hearing loss, unspecified ear (ICD-10) Keratitis ?H16.9 - Unspecified keratitis (ICD-10) Osteoarthritis of left hip ?M16.12 - Unilateral primary osteoarthritis, left hip (ICD-10) Primary osteoarthritis of both knees ?M17.0 - Bilateral primary osteoarthritis of knee (ICD-10) Osteoarthritis of spine with radiculopathy, lumbar region ?M47.26 - Other spondylosis with radiculopathy, lumbar region (ICD-10) Overactive bladder ?N32.81 - Overactive bladder (ICD-10) Osteopenia ?M85.80 - Other specified disorders of bone density and structure, unspecified site (ICD-10) Lumbosacral spondylosis without myelopathy ?M47.817 - Spondylosis without myelopathy or radiculopathy, lumbosacral region (ICD-10) Shoulder pain ?M25.519 - Pain in unspecified shoulder (ICD-10) Internal derangement of right shoulder ?M24.811 - Other specific joint derangements of right shoulder, not elsewhere classified (ICD-10) Heart palpitations ?R00.2 - Palpitations (ICD-10) Impaired glucose tolerance ?R73.02 - Impaired glucose tolerance (oral) (ICD-10) Dyspepsia ?R10.13 - Epigastric pain (ICD-10) Dry eye ?H04.129 - Dry eye syndrome of unspecified lacrimal gland (ICD-10) Decreased estrogen level ?E28.39 - Other primary ovarian failure (ICD-10) 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 - Chronic myringitis, unspecified ear (ICD-10) Tinnitus ?H93.19 - Tinnitus, unspecified ear (ICD-10) Edema, lower extremity ?R60.0 - Localized edema (ICD-10) Arthritis of right acromioclavicular joint ?M19.011 - Primary osteoarthritis, right shoulder (ICD-10) Allergic rhinitis ?J30.9 - Allergic rhinitis, unspecified (ICD-10) Dysfunction of right eustachian tube ?H69.91 - Unspecified Eustachian tube disorder, right ear (ICD-10) Sciatica ?M54.30 - Sciatica, unspecified side (ICD-10) Back pain ?M54.9 - Dorsalgia, unspecified (ICD-10) Herniated disc Osteoporosis ?M81.0 - Age-related osteoporosis without current pathological fracture (ICD-10) Osteoarthritis ?M19.90 - Unspecified osteoarthritis, unspecified site (ICD-10) Carpal tunnel syndrome ?G56.00 - Carpal tunnel syndrome, unspecified upper limb (ICD-10) Heart murmur ?R01.1 - Cardiac murmur, unspecified (ICD-10) Hypertrophic cardiomyopathy ?I42.2 - Other hypertrophic cardiomyopathy (ICD-10) HTN (hypertension) ?I10 - Essential (primary) hypertension (ICD-10) Surgical History S/P epidural steroid injection ?Z92.241 - Personal history of systemic steroid therapy (ICD-10) History of radiofrequency ablation (RFA) of nerve of lumbar spine ?Z98.890 - Other specified postprocedural states (ICD-10) History of cataract extraction with lens replacement H/O toe surgery ?Z98.890 - Other specified postprocedural states (ICD-10) S/P total hip arthroplasty ?Z96.649 - Presence of unspecified artificial hip joint (ICD-10) H/O tympanostomy ?Z98.890 - Other specified postprocedural states (ICD-10) H/O colonoscopy ?Z98.890 - Other specified postprocedural states (ICD-10) History of bunionectomy ?Z98.890 - Other specified postprocedural states (ICD-10) History of eyelid surgery ?Z98.890 - Other specified postprocedural states (ICD-10) S/P tonsillectomy and adenoidectomy ?Z90.89 - Acquired absence of other organs (ICD-10) S/P colon resection ?Z90.49 - Acquired absence of other specified parts of digestive tract (ICD-10) Hx of tonsillectomy ?Z90.89 - Acquired absence of other organs (ICD-10) History of bladder suspension procedure ?Z98.890 - Other specified postprocedural states (ICD-10) ?Z87.448 - Personal history of other diseases of urinary system (ICD-10) History of foot surgery ?Z98.890 - Other specified postprocedural states (ICD-10) History of hip replacement ?Z96.649 - Presence of unspecified artificial hip joint (ICD-10) History of colon resection ?Z90.49 - Acquired absence of other specified parts of digestive tract (ICD-10) History of hysterectomy ?Z90.710 - Acquired absence of both cervix and uterus (ICD-10) Family History Other Family history of heart disease Family history of hypertension Family history of stroke Idiopathic hypertrophic subaortic stenosis Social History Within the past year, how often did you have a drink containing alcohol: 2-3 times a week Smoking status: Former smoker Non-prescribed substance use: denies use Highest level of school completed/degree received: some college, no degree Meds Home Medications and Allergies Home Medications ?Medication ?Instructions ?Recorded ?Confirmed ?Type aspirin 81 mg capsule 81 mg PO BID 08/21/23 04/01/24 History cyclosporine 0.05 % eye drops 1 drp ophthalmic (eye) Q12H 08/21/23 04/01/24 History (Restasis MultiDose) fluticasone propionate 50 1 spray intranasal DAILY PRN 08/21/23 04/01/24 History mcg/actuation nasal allergy symptoms spray,suspension (24 Hour Allergy Relief) irbesartan 75 mg tablet 37.5 mg PO DAILY 08/21/23 04/01/24 History metoprolol succinate 25 mg 25 mg PO DAILY 08/21/23 04/01/24 History tablet,extended release 24 hr (Toprol XL) paroxetine HCl 20 mg tablet 20 mg PO DAILY 08/21/23 04/01/24 History baclofen 10 mg tablet 10 mg PO Q12H PRN muscle spasm 02/17/24 04/01/24 History loratadine-pseudoephedrine ER 10 1 tab PO Q24H PRN allergy symptoms 03/24/24 04/01/24 History mg-240 mg tablet,extended [id number] (Claritin-D 24 Hour) multivitamin (Daily Multi-Vitamin 1 tab PO DAILY 03/24/24 04/01/24 History tablet) Allergies Allergy/AdvReac Type Severity Reaction Status Date / Time oxycodone Allergy Hives Verified 04/01/24 13:09 Sulfa (Sulfonamide Allergy Rash Verified 04/01/24 13:09 Antibiotics) Exam Constitutional Documenting provider has reviewed patient's vital signs: yes Common normals: no apparent distress, oriented x3, healthy appearing, alert and well nourished General appearance: cooperative HENMT Common normals: normocephalic, hearing grossly normal bilaterally and moist oral mucous membranes Head and scalp: normocephalic Eye Common normals: PERRL Pupil: PERRL Neck & C-Spine Common normals: full ROM General: normal visual inspection Chest Common normals: inspection of chest normal Respiratory Common normals: normal respiratory effort, no retractions and no use of accessory muscles Back & Pelvis Lumbar spine/lower back: ROM limited, pain with ROM, lumbar spinal tenderness and straight leg raise negative bilaterally; no paraspinal muscle tenderness and no paraspinal muscle spasm Sacroiliac joints: SI joint(s) abnormal Other: bilateral sij positive david(patricks), gaenslens, thigh thrust, compression test positive facet loading L4-S1 no pain noted over left superior gluteal nerve Extremity Common normals: normal to inspection and full ROM Neuro Common normals: oriented x3, CN's II-XII intact bilaterally, moves all extremities, no focal motor deficits, no sensory deficits noted and deep tendon reflexes 2+ bilaterally Sensorium/orientation: alert Motor exam: strength 5/5 throughout and no movement abnormalities noted Psych Common normals: mental status grossly normal, thought process normal, cooperative, affect normal, speech normal and activity/motor behavior normal Speech: normal speech Thought process: normal thought process Results Additional Findings Additional findings: If on a controlled substance or opioids, I have checked an [place] report on this patient and there are no aberrancies noted in the prescribing history.??If on a controlled substance or opioid a drug screen was completed and reviewed within the last year, and if there has not been a drug screen completed we ordered one today to monitor higher risk, state monitored pain medication use. As part of providing excellent, safe, comprehensive care, the following was completed at our patient's visit: 1. A medication reconciliation and review to ensure accurate knowledge of current/active medications, including asking our patients to inform us about any [id number] medications or herbal remedies/nutritional supplements/alternative remedies. 2. A review to specifically ensure our patients have had annual screening for screening for depression, screening for tobacco use, and screening for unhealthy alcohol use. For concerning screenings had a discussion with the patient, provided patient education, and recommended follow-up with primary care provider when appropriate. If patient noted with a risk of falling, they received education on strength, gait, and balance training to prevent future risk of falling. Portions of this note may have been carried over from the previous visit and updated as appropriate. Please note this office utilizes paper charting in addition to the electronic medical record. A list of current medications, vitals, and PMH is available there as the clinical staff outside of myself do not have access to [employer] charting during the clinic day operations. As part of providing quality comprehensive care the current medications, vitals, and PMH were reviewed in the paper chart. Assessment and Plan Assessment and Plan (1) Unspecified mononeuropathy of left lower limb: (2) Lumbar spondylosis: (3) Myalgia, other site: Plan increase baclofen 10mg TID PRN pain/spasms continue PRN tylenol and motrin continue HEP as tolerated f/u 3 months, sooner if needed
== END 2024-05-05 15:05 | disposition home or self-care (01) ==
LOC: PM 15:04
PROVIDERS: PCP Internal Medicine; Visit Provider Nurse Practitioner
DX: G57.82 Other specified mononeuropathies of left lower limb (principal); M47.816 Spondylosis without myelopathy or radiculopathy, lumbar region; M79.18 Myalgia, other site
CPT/HCPCS: G0463

== ENCOUNTER 2024-07-19 15:31 | Emergency (ER) | payer MEDICARE, SELFPAY ==
[2024-07-19] VITALS (33 sets, daily range): BP systolic 115–148; BP diastolic 66–113; PULSE 64–121; TEMP 36.7; O2SAT 79–95; BMI 38.3
--- NOTE | 2024-07-19 16:00 | ECG_ITS ---
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 Measurements Intervals [place] Rate: 66 P: 47 ME: 160 QRS: 2 QRSD: 74 T: 19 QT: 392 QTc: 405 Interpretive Statements 1100 Sinus rhythm 3614 Cannot rule out inferior myocardial infarction, age undetermined 5222 Moderate voltage criteria for LVH, may be normal variant 9150 abnormal ECG No previous ECG available for comparison Electronically Signed On 07-19-2024 20:30:49 EDT by CHRIS GARCIA M.D.
--- NOTE | 2024-07-19 16:01 | ED_ITS ---
HPI HPI - General Adult General Chief complaint: Shortness of Breath/Dyspnea Stated complaint: SOB SHARP PAIN IN BREAST Time Seen by Provider: 07/19/24 15:39 Source: patient Mode of arrival: walk-in Limitations: no limitations History of Present Illness HPI narrative: 74 year old female presents to the ED for chest pain. Reports intermittent episodes of pain to her left chest. Onset was this morning. She has mild SOB with exertion; it is worse when the pain occurs. Denies fever, chills, cough, dizziness, back pain. Denies N/V/D. Denies recent travel or surgery. She has hx hypertrophic cardiomyopathy. Related Data Home Medications ?Medication ?Instructions ?Recorded ?Confirmed aspirin 81 mg capsule 81 mg PO BID 08/21/23 07/19/24 cyclosporine 0.05 % eye drops 1 drp ophthalmic (eye) Q12H 08/21/23 07/19/24 (Restasis MultiDose) fluticasone propionate 50 1 spray intranasal DAILY PRN 08/21/23 07/19/24 mcg/actuation nasal allergy symptoms spray,suspension (24 Hour Allergy Relief) irbesartan 75 mg tablet 37.5 mg PO DAILY 08/21/23 07/19/24 metoprolol succinate 25 mg 25 mg PO DAILY 08/21/23 07/19/24 tablet,extended release 24 hr (Toprol XL) paroxetine HCl 20 mg tablet 20 mg PO DAILY 08/21/23 07/19/24 baclofen 10 mg tablet 10 mg PO Q12H PRN muscle spasm 02/17/24 07/19/24 loratadine-pseudoephedrine ER 10 1 tab PO Q24H PRN allergy symptoms 03/24/24 04/01/24 mg-240 mg tablet,extended [id number] (Claritin-D 24 Hour) multivitamin (Daily Multi-Vitamin 1 tab PO DAILY 03/24/24 07/19/24 tablet) Previous Rx's ?Medication ?Instructions ?Recorded baclofen 10 mg tablet 10 mg PO TID PRN muscle spasm #90 07/08/24 tabs Allergies Allergy/AdvReac Type Severity Reaction Status Date / Time oxycodone Allergy Hives Verified 04/01/24 13:09 Sulfa (Sulfonamide Allergy Rash Verified 04/01/24 13:09 Antibiotics) Opioid HPI Opioid Management Most Recent Opioid Data: Last Pain Scale 3 04/06/24 07:09 04/06/24 Review of Systems ROS Constitutional Denies: fever, chills or fatigue Ears, nose, mouth, and throat Denies: throat pain or neck pain Cardiovascular Reports: chest pain; Denies: palpitations, edema, swelling of feet/ankles or lightheadedness Respiratory Reports: shortness of breath; Denies: cough Gastrointestinal Denies: abdominal pain, nausea, vomiting or diarrhea Musculoskeletal Denies: back pain or neck pain Neurological Denies: headache or dizziness [facility] Medical History (Updated 07/19/24 @ 18:50 by Pam Cooley) Bowel obstruction ?K56.609 - Unspecified intestinal obstruction, unspecified as to partial versus complete obstruction (ICD-10) Dyspnea on exertion ?R06.09 - Other forms of dyspnea (ICD-10) Anemia ?D64.9 - Anemia, unspecified (ICD-10) Depression ?F32.A - Depression, unspecified (ICD-10) Anxiety ?F41.9 - Anxiety disorder, unspecified (ICD-10) Snores ?R06.83 - Snoring (ICD-10) COVID-19 ?U07.1 - COVID-19 (ICD-10) Migraine ?G43.909 - Migraine, unspecified, not intractable, without status migrainosus (ICD-10) IHSS (idiopathic hypertrophic subaortic stenosis) ?I42.1 - Obstructive hypertrophic cardiomyopathy (ICD-10) Knee tendinitis ?M76.899 - Other specified enthesopathies of unspecified lower limb, excluding foot (ICD-10) Hammertoe ?M20.40 - Other hammer toe(s) (acquired), unspecified foot (ICD-10) Arthritis ?M19.90 - Unspecified osteoarthritis, unspecified site (ICD-10) Reactive airway disease ?J45.909 - Unspecified asthma, uncomplicated (ICD-10) GERD (gastroesophageal reflux disease) ?K21.9 - Gastro-esophageal reflux disease without esophagitis (ICD-10) TIA (transient ischemic attack) ?G45.9 - Transient cerebral ischemic attack, unspecified (ICD-10) Left ventricular hypertrophy ?I51.7 - Cardiomegaly (ICD-10) Sjogrens syndrome ?M35.00 - Sjogren syndrome, unspecified (ICD-10) Hearing loss ?H91.90 - Unspecified hearing loss, unspecified ear (ICD-10) Keratitis ?H16.9 - Unspecified keratitis (ICD-10) Osteoarthritis of left hip ?M16.12 - Unilateral primary osteoarthritis, left hip (ICD-10) Primary osteoarthritis of both knees ?M17.0 - Bilateral primary osteoarthritis of knee (ICD-10) Osteoarthritis of spine with radiculopathy, lumbar region ?M47.26 - Other spondylosis with radiculopathy, lumbar region (ICD-10) Overactive bladder ?N32.81 - Overactive bladder (ICD-10) Osteopenia ?M85.80 - Other specified disorders of bone density and structure, un specified site (ICD-10) Lumbosacral spondylosis without myelopathy ?M47.817 - Spondylosis without myelopathy or radiculopathy, lumbosacral region (ICD-10) Shoulder pain ?M25.519 - Pain in unspecified shoulder (ICD-10) Internal derangement of right shoulder ?M24.811 - Other specific joint derangements of right shoulder, not elsewhere classified (ICD-10) Heart palpitations ?R00.2 - Palpitations (ICD-10) Impaired glucose tolerance ?R73.02 - Impaired glucose tolerance (oral) (ICD-10) Dyspepsia ?R10.13 - Epigastric pain (ICD-10) Dry eye ?H04.129 - Dry eye syndrome of unspecified lacrimal gland (ICD-10) Decreased estrogen level ?E28.39 - Other primary ovarian failure (ICD-10) 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 - Chronic myringitis, unspecified ear (ICD-10) Tinnitus ?H93.19 - Tinnitus, unspecified ear (ICD-10) Edema, lower extremity ?R60.0 - Localized edema (ICD-10) Arthritis of right acromioclavicular joint ?M19.011 - Primary osteoarthritis, right shoulder (ICD-10) Allergic rhinitis ?J30.9 - Allergic rhinitis, unspecified (ICD-10) Dysfunction of right eustachian tube ?H69.91 - Unspecified Eustachian tube disorder, right ear (ICD-10) Sciatica ?M54.30 - Sciatica, unspecified side (ICD-10) Back pain ?M54.9 - Dorsalgia, unspecified (ICD-10) Herniated disc Osteoporosis ?M81.0 - Age-related osteoporosis without current pathological fracture (ICD- 10) Osteoarthritis ?M19.90 - Unspecified osteoarthritis, unspecified site (ICD-10) Carpal tunnel syndrome ?G56.00 - Carpal tunnel syndrome, unspecified upper limb (ICD-10) Heart murmur ?R01.1 - Cardiac murmur, unspecified (ICD-10) Hypertrophic cardiomyopathy ?I42.2 - Other hypertrophic cardiomyopathy (ICD-10) HTN (hypertension) ?I10 - Essential (primary) hypertension (ICD-10) Surgical History S/P epidural steroid injection ?Z92.241 - Personal history of systemic steroid therapy (ICD-10) History of radiofrequency ablation (RFA) of nerve of lumbar spine ?Z98.890 - Other specified postprocedural states (ICD-10) History of cataract extraction with lens replacement H/O toe surgery ?Z98.890 - Other specified postprocedural states (ICD-10) S/P total hip arthroplasty ?Z96.649 - Presence of unspecified artificial hip joint (ICD-10) H/O tympanostomy ?Z98.890 - Other specified postprocedural states (ICD-10) H/O colonoscopy ?Z98.890 - Other specified postprocedural states (ICD-10) History of bunionectomy ?Z98.890 - Other specified postprocedural states (ICD-10) History of eyelid surgery ?Z98.890 - Other specified postprocedural states (ICD-10) S/P tonsillectomy and adenoidectomy ?Z90.89 - Acquired absence of other organs (ICD-10) S/P colon resection ?Z90.49 - Acquired absence of other specified parts of digestive tract (ICD- 10) Hx of tonsillectomy ?Z90.89 - Acquired absence of other organs (ICD-10) History of bladder suspension procedure ?Z98.890 - Other specified postprocedural states (ICD-10) ?Z87.448 - Personal history of other diseases of urinary system (ICD-10) History of foot surgery ?Z98.890 - Other specified postprocedural states (ICD-10) History of hip replacement ?Z96.649 - Presence of unspecified artificial hip joint (ICD-10) History of colon resection ?Z90.49 - Acquired absence of other specified parts of digestive tract (ICD- 10) History of hysterectomy ?Z90.710 - Acquired absence of both cervix and uterus (ICD-10) Family History Other Family history of heart disease Family history of hypertension Family history of stroke Idiopathic hypertrophic subaortic stenosis Social History Within the past year, how often did you have a drink containing alcohol: 2-3 times a week Smoking status: Former smoker Non-prescribed substance use: denies use Highest level of school completed/degree received: some college, no degree Little interest or pleasure in doing things: not at all Feeling down, depressed, or hopeless: not at all Exam Constitutional Vital Signs, click to edit/add: Last Vital Signs Temp 98.1 F 07/19/24 15:39 Pulse 67 07/19/24 18:50 Resp 19 07/19/24 18:50 BP 116/79 07/19/24 18:46 Pulse Ox 92 L 07/19/24 18:50 O2 Del Method Room Air 07/19/24 15:39 Common normals: no apparent distress and oriented x3 General appearance: cooperative HENMT Common normals: moist oral mucous membranes Eye Common normals: conjunctivae normal and no scleral icterus Neck & C-Spine Common normals: supple Chest Common normals: palpation of chest normal Chest: symmetrical chest wall rise Respiratory Common normals: normal respiratory effort and clear to auscultation bilaterally Effort & inspection: able to speak in complete sentences and symmetric chest movement Cardio Common normals: regular rate and regular rhythm Neuro Common normals: oriented x3 and moves all extremities Sensorium/orientation: awake and alert Speech: speech normal Course Vital Signs Vital signs: Vital Signs Temperature 98.1 F 07/19/24 15:39 Pulse Rate 67 07/19/24 15:39 Respiratory Rate 18 07/19/24 15:39 Blood Pressure 148/96 H 07/19/24 15:39 Pulse Oximetry 94 L 07/19/24 15:39 Oxygen Delivery Method Room Air 07/19/24 15:39 Temperature 98.1 F 07/19/24 15:39 Pulse Rate 67 07/19/24 18:50 Respiratory Rate 19 07/19/24 18:50 Blood Pressure 116/79 07/19/24 18:46 Pulse Oximetry 92 L 07/19/24 18:50 Oxygen Delivery Method Room Air 07/19/24 15:39 Medical Decision Making MDM Narrative Medical decision making narrative: Laboratory studies were unremarkable, including two negative troponin results. Imaging was negative for acute findings. Findings were discussed with the patient. She will be discharged home at the recommendation of the ED physician. Follow up with pcp and cardiology for a recheck, further evaluation and treatment. Return precautions were discussed. Medical Records Medical records reviewed: Yes I reviewed the patient's medical records Lab Data Lab results reviewed: Yes I reviewed the patient's lab results Labs: Lab Results 07/19/24 07/19/24 Range/Units 16:05 18:27 WBC 11.9 H (4.0-11.0) 10^3/uL RBC 4.60 (4.20-5.40) 10^6/uL Hgb 13.6 (12.0-16.0) g/dL Hct 41.9 (36.0-48.0) % MCV 91.1 (81.0-99.0) fL MCH 29.6 (26.7-34.0) pg MCHC 32.5 (29.9-35.2) g/dL RDW 13.0 (11.0-15.0) % Plt Count 261 (150-450) 10^3/uL MPV 11.5 (9.5-13.5) fL Neut % (Auto) 65.5 (43.0-75.0) % Lymph % (Auto) 18.6 L (20.5-60.0) % Hughes % (Auto) 10.3 (1.7-12.0) % Eos % (Auto) 4.7 (0.9-7.0) % Baso % (Auto) 0.5 (0.2-2.0) % Neut # (Auto) 7.8 H (1.4-6.5) 10^3/uL Lymph # (Auto) 2.2 (1.2-3.8) 10^3/uL Hughes # (Auto) 1.2 H (0.3-0.8) 10^3/uL Eos # (Auto) 0.6 (0.0-0.7) 10^3/uL Baso # (Auto) 0.1 (0.0-0.1) 10^3/uL Abs Immat Gran (auto) 0.05 H (0.00-0.03) 10^3/uL Imm/Tot Granulo (auto) 0.4 (0.0-0.5) % Sodium 141 (136-145) mmol/L Potassium 4.2 (3.5-5.1) mmol/L Chloride 102 (98-107) mmol/L Carbon Dioxide 30.3 (21.0-32.0) mmol/L Anion Gap 12.9 BUN 28.0 H (7.0-18.0) mg/dL Creatinine 0.89 (0.55-1.02) mg/dL Est GFR ( Amer) >60 (>=60 mL/min/1.73m^2) Est GFR (Non-Af Amer) >60 (>=60 mL/min/1.73m^2) BUN/Creatinine Ratio 31.5 Glucose 95 (74-106) mg/dL Calcium 9.1 (8.5-10.1) mg/dL Total Bilirubin 0.3 (0.2-1.0) mg/dL AST 14 L (15-37) U/L ALT 20 (14-59) U/L Alkaline Phosphatase 105 (46-116) U/L Troponin I High Sens 5.3 7.0 (4.0-51.3) pg/mL NT-Pro-B Natriuret Pep 100.0 (<=1800.0) pg/mL Total Protein 7.1 (6.4-8.2) g/dL Albumin 3.6 (3.4-5.0) g/dL Globulin 3.5 g/dL Albumin/Globulin Ratio 1.0 Imaging Data Chest x-ray: Attestation: I have reviewed the pertinent imaging results. Radiologist's impression: No acute cardiopulmonary process. ECG Data Attestation: ?I have reviewed the pertinent ECG results. (EKG was reviewed by the attending physician. It showed sinus rhythm at a rate of 66. No STEMI.) Interpretation: Measurements Intervals [place] Rate: 66 P: 47 MI: 160 QRS: 2 QRSD: 74 T: 19 QT: 392 QTc: 405 Interpretive Statements 1100 Sinus rhythm 3614 Cannot rule out inferior myocardial infarction, age undetermined 5222 Moderate voltage criteria for LVH, may be normal variant 9150 abnormal ECG No previous ECG available for comparison Discharge Plan Discharge Chief Complaint: Shortness of Breath/Dyspnea Clinical Impression: Atypical chest pain Patient Disposition: Home, Self-Care Time of Disposition Decision: 18:50 Condition: Good Mode of Transportation: Private Vehicle Prescriptions / Home Meds: No Action irbesartan 75 mg tablet 37.5 mg PO DAILY metoprolol succinate [Toprol XL] 25 mg tablet extended release 24 hr 25 mg PO DAILY fluticasone propionate [24 Hour Allergy Relief] 50 mcg/actuation spray,suspension 1 spray intranasal DAILY PRN (Reason: allergy symptoms) Rx Instructions: administer into each nostril aspirin 81 mg capsule 81 mg PO BID Restasis MultiDose 0.05 % drops 1 drp ophthalmic (eye) Q12H paroxetine HCl 20 mg tablet 20 mg PO DAILY baclofen 10 mg tablet 10 mg PO TID PRN (Reason: muscle spasm) Qty: 90 2RF Claritin-D 24 Hour 10-240 mg tablet extended release 24 hr 1 tab PO Q24H PRN (Reason: allergy symptoms) multivitamin [Daily Multi-Vitamin] Tablet 1 tab PO DAILY baclofen 10 mg tablet 10 mg PO Q12H PRN (Reason: muscle spasm) Print Language: Dutch Instructions: Chest Pain (ED) Additional Instructions: Follow up with your primary care provider and 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 Return to the ER for worsening symptoms. Referrals: GERA GALEANO [Primary Care Provider] - 1 week Discharge Date/Time: 07/19/24 19:00
[2024-07-19] MEDS: ASPIRIN 81 MG TAB.CHEW 324 MG PO (16:16)
[2024-07-19 16:24] LABS: Basophils Absolute Auto 0.1 10^3/uL (0.0-0.1); Basophils Percent Auto 0.5 % (0.2-2.0); Eosinophils Absolute Auto 0.6 10^3/uL (0.0-0.7); Eosinophils Percent Auto 4.7 % (0.9-7.0); Hematocrit 41.9 % (36.0-48.0); Hemoglobin 13.6 g/dL (12.0-16.0); Immature Granulocytes Abs Auto 0.05 10^3/uL (0.00-0.03); Immature Granulocytes Pct Auto 0.4 % (0.0-0.5); Lymphocytes Absolute Auto 2.2 10^3/uL (1.2-3.8); Lymphocytes Percent Auto 18.6 % (20.5-60.0); Mean Corpuscular HGB Conc 32.5 g/dL (29.9-35.2); Mean Corpuscular Hemoglobin 29.6 pg (26.7-34.0); Mean Corpuscular Volume 91.1 fL (81.0-99.0); Mean Platelet Volume 11.5 fL (9.5-13.5); Monocytes Absolute Auto 1.2 10^3/uL (0.3-0.8); Monocytes Percent Auto 10.3 % (1.7-12.0); Neutrophils Absolute Auto 7.8 10^3/uL (1.4-6.5); Neutrophils Percent Auto 65.5 % (43.0-75.0); Platelet Count 261 10^3/uL (150-450); White Blood Count 11.9 10^3/uL (4.0-11.0)
[2024-07-19 16:38] LABS: Alanine Aminotransferase 20 U/L (14-59); Albumin Level 3.6 g/dL (3.4-5.0); Alkaline Phosphatase 105 U/L (46-116); Anion Gap 12.9; Aspartate Amino Transferase 14 U/L (15-37); BUN Creatinine Ratio 31.5; Bilirubin Total 0.3 mg/dL (0.2-1.0); Calcium 9.1 mg/dL (8.5-10.1); Carbon Dioxide 30.3 mmol/L (21.0-32.0); Chloride 102 mmol/L (98-107); Estimated GFR (African America >60 (>=60 mL/min/1.73m^2); Estimated GFR (Non-African Ame >60 (>=60 mL/min/1.73m^2); Globulin 3.5 g/dL; Glucose 95 mg/dL (74-106); Potassium 4.2 mmol/L (3.5-5.1); Sodium 141 mmol/L (136-145); Total Protein 7.1 g/dL (6.4-8.2)
[2024-07-19 16:44] LABS: Troponin I High Sensitivity 5.3 pg/mL (4.0-51.3)
== END 2024-07-19 19:00 | disposition home or self-care (01) ==
PROVIDERS: Nurse Practitioner Family; Emergency Provider Emergency Medicine; PCP Internal Medicine
DX: R07.89 Other chest pain (principal); R06.02 Shortness of breath; I42.2 Other hypertrophic cardiomyopathy; Z96.649 Presence of unspecified artificial hip joint; Z90.49 Acquired absence of other specified parts of digestive tract; Z90.710 Acquired absence of both cervix and uterus; Z87.891 Personal history of nicotine dependence
CPT/HCPCS: 36415; 71045; 80053; 83880; 84484; 85025; 93005; 99285

== ENCOUNTER 2024-08-04 11:20 | Outpatient (OUT) | payer MEDICARE, SELFPAY ==
--- NOTE | 2024-08-04 12:11 | P.CN_ITS ---
Consult Note: HPI Data of Consult Patient: known to practice within the last 3 years Requesting Physician: Mariaelena Romano NP Primary Care Provider: GERA GALEANO Consult Narrative Reason for consult: f/u Narrative: Teodora Daily a pleasant 74 year old female with chronic low back pain presents for evaluation and management. low back pain 7/10 increasing to 10/10 aching burning increasing with standing, walking, activity. pain improved with forward flexion and sitting. utilizing tylenol, motrin, baclofen 10mg BID PRN with mild relief. ANGELLA 40% cc:: CC: Mariaelena Romano NP Review of Systems ROS Status of ROS 10 or more systems reviewed and unremark able except as noted in history and below Musculoskeletal Reports: back pain PFSH PFSH Medical History (Updated 07/19/24 @ 18:50 by Pam Cooley) Bowel obstruction ?K56.609 - Unspecified intestinal obstruction, unspecified as to partial versus complete obstruction (ICD-10) Dyspnea on exertion ?R06.09 - Other forms of dyspnea (ICD-10) Anemia ?D64.9 - Anemia, unspecified (ICD-10) Depression ?F32.A - Depression, unspecified (ICD-10) Anxiety ?F41.9 - Anxiety disorder, unspecified (ICD-10) Snores ?R06.83 - Snoring (ICD-10) COVID-19 ?U07.1 - COVID-19 (ICD-10) Migraine ?G43.909 - Migraine, unspecified, not intractable, without status migrainosus (ICD-10) IHSS (idiopathic hypertrophic subaortic stenosis) ?I42.1 - Obstructive hypertrophic cardiomyopathy (ICD-10) Knee tendinitis ?M76.899 - Other specified enthesopathies of unspecified lower limb, excluding foot (ICD-10) Hammertoe ?M20.40 - Other hammer toe(s) (acquired), unspecified foot (ICD-10) Arthritis ?M19.90 - Unspecified osteoarthritis, unspecified site (ICD-10) Reactive airway disease ?J45.909 - Unspecified asthma, uncomplicated (ICD-10) GERD (gastroesophageal reflux disease) ?K21.9 - Gastro-esophageal reflux disease without esophagitis (ICD-10) TIA (transient ischemic attack) ?G45.9 - Transient cerebral ischemic attack, unspecified (ICD-10) Left ventricular hypertrophy ?I51.7 - Cardiomegaly (ICD-10) Sjogrens syndrome ?M35.00 - Sjogren syndrome, unspecified (ICD-10) Hearing loss ?H91.90 - Unspecified hearing loss, unspecified ear (ICD-10) Keratitis ?H16.9 - Unspecified keratitis (ICD-10) Osteoarthritis of left hip ?M16.12 - Unilateral primary osteoarthritis, left hip (ICD-10) Primary osteoarthritis of both knees ?M17.0 - Bilateral primary osteoarthritis of knee (ICD-10) Osteoarthritis of spine with radiculopathy, lumbar region ?M47.26 - Other spondylosis with radiculopathy, lumbar region (ICD-10) Overactive bladder ?N32.81 - Overactive bladder (ICD-10) Osteopenia ?M85.80 - Other specified disorders of bone density and structure, unspecified site (ICD-10) Lumbosacral spondylosis without myelopathy ?M47.817 - Spondylosis without myelopathy or radiculopathy, lumbosacral region (ICD-10) Shoulder pain ?M25.519 - Pain in unspecified shoulder (ICD-10) Internal derangement of right shoulder ?M24.811 - Other specific joint derangements of right shoulder, not elsewhere classified (ICD-10) Heart palpitations ?R00.2 - Palpitations (ICD-10) Impaired glucose tolerance ?R73.02 - Impaired glucose tolerance (oral) (ICD-10) Dyspepsia ?R10.13 - Epigastric pain (ICD-10) Dry eye ?H04.129 - Dry eye syndrome of unspecified lacrimal gland (ICD-10) Decreased estrogen level ?E28.39 - Other primary ovarian failure (ICD-10) 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 - Chronic myringitis, unspecified ear (ICD-10) Tinnitus ?H93.19 - Tinnitus, unspecified ear (ICD-10) Edema, lower extremity ?R60.0 - Localized edema (ICD-10) Arthritis of right acromioclavicular joint ?M19.011 - Primary osteoarthritis, right shoulder (ICD-10) Allergic rhinitis ?J30.9 - Allergic rhinitis, unspecified (ICD-10) Dysfunction of right eustachian tube ?H69.91 - Unspecified Eustachian tube disorder, right ear (ICD-10) Sciatica ?M54.30 - Sciatica, unspecified side (ICD-10) Back pain ?M54.9 - Dorsalgia, unspecified (ICD-10) Herniated disc Osteoporosis ?M81.0 - Age-related osteoporosis without current pathological fracture (ICD- 10) Osteoarthritis ?M19.90 - Unspecified osteoarthritis, unspecified site (ICD-10) Carpal tunnel syndrome ?G56.00 - Carpal tunnel syndrome, unspecified upper limb (ICD-10) Heart murmur ?R01.1 - Cardiac murmur, unspecified (ICD-10) Hypertrophic cardiomyopathy ?I42.2 - Other hypertrophic cardiomyopathy (ICD-10) HTN (hypertension) ?I10 - Essential (primary) hypertension (ICD-10) Surgical History S/P epidural steroid injection ?Z92.241 - Personal history of systemic steroid therapy (ICD-10) History of radiofrequency ablation (RFA) of nerve of lumbar spine ?Z98.890 - Other specified postprocedural states (ICD-10) History of cataract extraction with lens replacement H/O toe surgery ?Z98.890 - Other specified postprocedural states (ICD-10) S/P total hip arthroplasty ?Z96.649 - Presence of unspecified artificial hip joint (ICD-10) H/O tympanostomy ?Z98.890 - Other specified postprocedural states (ICD-10) H/O colonoscopy ?Z98.890 - Other specified postprocedural states (ICD-10) History of bunionectomy ?Z98.890 - Other specified postprocedural states (ICD-10) History of eyelid surgery ?Z98.890 - Other specified postprocedural states (ICD-10) S/P tonsillectomy and adenoidectomy ?Z90.89 - Acquired absence of other organs (ICD-10) S/P colon resection ?Z90.49 - Acquired absence of other specified parts of digestive tract (ICD- 10) Hx of tonsillectomy ?Z90.89 - Acquired absence of other organs (ICD-10) History of bladder suspension procedure ?Z98.890 - Other specified postprocedural states (ICD-10) ?Z87.448 - Personal history of other diseases of urinary system (ICD-10) History of foot surgery ?Z98.890 - Other specified postprocedural states (ICD-10) History of hip replacement ?Z96.649 - Presence of unspecified artificial hip joint (ICD-10) History of colon resection ?Z90.49 - Acquired absence of other specified parts of digestive tract (ICD- 10) History of hysterectomy ?Z90.710 - Acquired absence of both cervix and uterus (ICD-10) Family History Other Family history of heart disease Family history of hypertension Family history of stroke Idiopathic hypertrophic subaortic stenosis Social History Within the past year, how often did you have a drink containing alcohol: 2-3 times a week Smoking status: Former smoker Non-prescribed substance use: denies use Highest level of school completed/degree received: some college, no degree Little interest or pleasure in doing things: not at all Feeling down, depressed, or hopeless: not at all Meds Home Medications and Allergies Home Medications ?Medication ?Instructions ?Recorded ?Confirmed ?Type aspirin 81 mg capsule 81 mg PO BID 08/21/23 07/19/24 History cyclosporine 0.05 % eye drops 1 drp ophthalmic (eye) Q12H 08/21/23 07/19/24 History (Restasis MultiDose) fluticasone propionate 50 1 spray intranasal DAILY PRN 08/21/23 07/19/24 History mcg/actuation nasal allergy symptoms spray,suspension (24 Hour Allergy Relief) irbesartan 75 mg tablet 37.5 mg PO DAILY 08/21/23 07/19/24 History metoprolol succinate 25 mg 25 mg PO DAILY 08/21/23 07/19/24 History tablet,extended release 24 hr (Toprol XL) paroxetine HCl 20 mg tablet 20 mg PO DAILY 08/21/23 07/19/24 History baclofen 10 mg tablet 10 mg PO Q12H PRN muscle spasm 02/17/24 07/19/24 History loratadine-pseudoephedrine ER 10 1 tab PO Q24H PRN allergy symptoms 03/24/24 04/01/24 History mg-240 mg tablet,extended [id number] (Claritin-D 24 Hour) multivitamin (Daily Multi-Vitamin 1 tab PO DAILY 12/04/24 03/31/25 History tablet) baclofen 10 mg tablet 10 mg PO TID PRN muscle spasm #90 07/08/24 07/19/24 Rx tabs Allergies Allergy/AdvReac Type Severity Reaction Status Date / Time oxycodone Allergy Hives Verified 04/01/24 13:09 Sulfa (Sulfonamide Allergy Rash Verified 04/01/24 13:09 Antibiotics) Exam Constitutional Documenting provider has reviewed patient's vital signs: yes Common normals: no apparent distress, oriented x3, healthy appearing, alert and well nourished General appearance: cooperative HENMT Common normals: normocephalic, hearing grossly normal bilaterally and moist oral mucous membranes Head and scalp: normocephalic Eye Common normals: PERRL Pupil: PERRL Neck & C-Spine Common normals: full ROM General: normal visual inspection Chest Common normals: inspection of chest normal Respiratory Common normals: normal respiratory effort, no retractions and no use of accessory muscles Back & Pelvis Lumbar spine/lower back: lumbar ROM normal and straight leg raise negative bilaterally; no pain with ROM, no lumbar spinal tenderness, no paraspinal muscle tenderness and no paraspinal muscle spasm Other: increased pain following L3,4,5 dermatomes with standing and walking, improved with sitting and forward flexion strength 4/5 in BLE decreased sensation bilateral L3/4/5 Extremity Common normals: normal to inspection and full ROM Neuro Common normals: oriented x3 Sensorium/orientation: alert Motor exam: strength 5/5 throughout and no movement abnormalities noted Psych Common normals: mental status grossly normal, thought process normal, cooperative, affect normal, speech normal and activity/motor behavior normal Speech: normal speech Thought process: normal thought process Results Additional Findings Additional findings: If on a controlled substance or opioids, I have checked an [place] report on this patient and there are no aberrancies noted in the prescribing history.??If on a controlled substance or opioid a drug screen was completed and reviewed within the last year, and if there has not been a drug screen completed we ordered one today to monitor higher risk, state monitored pain medication use. As part of providing excellent, safe, comprehensive care, the following was completed at our patient's visit: 1. A medication reconciliation and review to ensure accurate knowledge of current/active medications, including asking our patients to inform us about any [id number] medications or herbal remedies/nutritional supplements/alternative remedies. 2. A review to specifically ensure our patients have had annual screening for screening for depression, screening for tobacco use, and screening for unhealthy alcohol use. For concerning screenings had a discussion with the patient, provided patient education, and recommended follow-up with primary care provider when appropriate. If patient noted with a risk of falling, they received education on strength, gait, and balance training to prevent future risk of falling. Portions of this note may have been carried over from the previous visit and updated as appropriate. Please note this office utilizes paper charting in addition to the electronic medical record. A list of current medications, vitals, and PMH is available there as the clinical staff outside of myself do not have access to [facility] charting during the clinic day operations. As part of providing quality comprehensive care the current medications, vitals, and PMH were reviewed in the paper chart. Assessment and Plan Assessment and Plan (1) Lumbar stenosis with neurogenic claudication: Assessment and Plan: The patient has had over 3 months of moderate to severe low back pain with functional impairment and inadequate response to conservative care including NSAIDS (unless there are contraindication such as concurrent blood thinners), multiple oral or topical pain medications, and home exercise program/physical therapy.? Patient has completed >6 weeks of guided home exercise program and/or formal physical therapy program without relief of their symptoms.? I have reviewed the imaging of the lumbar spine and no red flags were identified.? The imaging reveals radiographic findings consistent with lumbar ddd, lumbar spondylosis, lumbar stenosis We discussed the risks and benefits of the procedure with the patient, and we are NOT planning on using sedation as outlined in the guidelines from Medicare unless there is a documented reason that sedation would be strongly recommended.?? ?The procedure will be completed with fluoroscopic guidance.? (2) Lumbar spondylosis: (3) Myalgia, other site: Plan bilateral L3-4 TFESI under fluoroscopy, may need to proceed with bilateral L4-5 TFESI as well if pain and symptoms do not significant improve as pt has multilevel NC and dermatomal pain continue current medications continue HEP as tolerated f/u 2 weeks after injection
== END 2024-08-04 11:21 ==
LOC: PM 11:20
PROVIDERS: PCP Internal Medicine; Visit Provider Nurse Practitioner
DX: M48.062 Spinal stenosis, lumbar region with neurogenic claudication (principal); M47.816 Spondylosis without myelopathy or radiculopathy, lumbar region; M79.18 Myalgia, other site
CPT/HCPCS: G0463

== ENCOUNTER 2024-08-16 10:08 | Day surgery (SDC) | payer MEDICARE, SELFPAY ==
[2024-08-16 10:36] VITALS: BP 142/77; PULSE 68; TEMP 36.5; O2SAT 96
[2024-08-16 11:02] VITALS: BP 151/78; PULSE 62; O2SAT 92
[2024-08-16 11:03] VITALS: BP 151/78; PULSE 63; O2SAT 92
[2024-08-16] MEDS: DEXAMETHASONE SOD PHOS 10 MG/ML VIAL INJ (11:04)
[2024-08-16] MEDS: IOHEXOL 240 MG/ML - 10 ML VIAL 24 MG INJ (11:04)
[2024-08-16] MEDS: BUPIVACAINE HCL 0.25% PF 25 MG/10 ML VIAL INJ (11:04)
[2024-08-16] MEDS: 0.9 % SODIUM CHLORIDE 10 ML SYRINGE - SALINE FLUSH INJ (11:04)
[2024-08-16] MEDS: LIDOCAINE HCL 2% 400 MG/20 ML MDV 3 ML INJ (11:05)
--- NOTE | 2024-08-16 11:08 | W.PM.PROCNOT ---
Date of procedure: 08/16/24 Pre-op diagnosis: Pain due to lumbar stenosis with neurogenic claudication Post-op diagnosis: same as pre-op Procedure: Procedure: Bilateral L3-4 transforaminal epidural steroid injection Medications: Bupivacaine 0.25% 2cc, lidocaine 2% 1cc, dexamethasone 10mg The patient was seen and examined in the preoperative holding area.? Informed consent was obtained and placed on the chart.? Patient was brought to the medical procedure unit and placed in the prone position where a timeout was completed verifying the correct patient, procedure site, position, and planned special equipment using sterile aseptic technique.? Under direct fluoroscopic visualization a 25-gauge Quincke tipped spinal needle was advanced at level left L3-4 to the designated neural foramen where contrast dye was injected to show adequate spread.? There was no evidence of vascular or adverse uptake.? Epidural spread was appreciated.? The above-mentioned injectate was then placed in a 1.5 mL aliquot preceded by negative aspiration.? The needle was removed. The same procedure, at the same level, was completed on the opposite side. ? Patient was taken to the postprocedural recovery area and monitored for an appropriate length of time before found suitable for discharge in the accompaniment of a responsible adult. Anesthesia: Local Surgeon: Lala Vega Pathology: none sent Condition: stable Disposition: no change
== END 2024-08-16 11:12 | disposition home or self-care (01) ==
LOC: SURGOUT 10:09
PROVIDERS: PCP Internal Medicine; Visit Provider Anesthesiology
DX: M48.062 Spinal stenosis, lumbar region with neurogenic claudication (principal); M54.50 Low back pain, unspecified
CPT/HCPCS: 64483; J0665; J1100; Q9966

== ENCOUNTER 2024-08-25 08:47 | Outpatient (OUT) | payer MEDICARE, SELFPAY ==
--- NOTE | 2024-08-25 09:00 | CA_ITS ---
Patient Name: YAO PATEL MR#: [id number] : 1950 Exam Date: 08/25/2024 Ordering Doctor: LUIS ENRIQUE CLARKE CNP ECHOCARDIOGRAM REPORT PROCEDURE: CA ECHO DOPPLER COMPLETE INDICATIONS: Dyspnea on exertion, hypertension COMPARISON: None. DESCRIPTION: COMPLETE ECHOCARDIOGRAM Real-time transthoracic echocardiography with 2D, M-mode, spectral and color flow Doppler performed. QUALITY: Technical quality was good. LEFT VENTRICLE: Normal chamber size. Thickened septal wall. Normal systolic function. LV EF: Normal left ventricular ejection fraction, (60-65%). DIASTOLIC: Normal diastolic function. ATRIAL SEPTUM: Visually appears intact. LEFT ATRIUM: Normal chamber size. RIGHT ATRIUM: Normal chamber size. RIGHT VENTRICLE: Normal chamber size. Normal right ventricular systolic function. TRICUSPID VALVE: Normal mobility and thickness. No stenosis with mild regurgitation. RVSP 33 mmHg MITRAL VALVE: Mildly thickened with normal mobility. No evidence of mitral valve stenosis. Mild mitral annular calcification. Trivial mitral regurgitation. AORTIC VALVE: Normal trileaflet appearance. No visible sclerosis. Normal leaflet mobility. No evidence of aortic valve stenosis. Trivial aortic regurgitation. AORTIC ROOT: Normal diameter and appearance, measuring 3.5 cm. Ascending aorta is normal in size, measuring 3.1 cm. PULMONIC VALVE: Not well visualized. No stenosis. No regurgitation. PERICARDIUM: No evidence of pericardial effusion. IVC: Collapses with inspirations. PLEURA: CONCLUSION: 1. Left ventricle is normal in size and exhibits mild basal septal hypertrophy with normal systolic function. Estimated LVEF is 60 to 65%. 2. Normal right ventricular size and systolic function. 3. Normal diastolic function. 4. Mild tricuspid regurgitation. 5. Normal right-sided pressures. Adult Echocardiography Procedure Report Left Ventricle LVEDD (3.7 - 5.6 cm): 3.60 cm LVESD (2.2 - 4.0 cm): 2.89 cm LVIVS thickness (0.6 - 1.2 cm): 1.27 cm LVPW thickness (0.5 - 1.0 cm): 1.04 cm e': 0.08 m/s E - e': 10.25 LVOT Max Gradient: 4.81 mm[Hg] LVOT Area (cm2): 1.10 m/s Peak Velocity (LVOT): 1.10 m/s Mean Velocity (LVOT): 0.79 m/s LVOT Diameter 2.00 cm Left Atrium LA Volume Index (2D A2C): 23.71 ml/m2 Left Atrium Systolic Dimension: 3.43 cm Mitral Valve MV E to A Ratio: 0.69 Mitral Valve A-Wave Peak Velocity: 1.23 m/s Mitral Valve E-Wave Peak Velocity: 0.85 m/s Right Ventricle Aorta AO Root Diam: 3.45 cm Ascending Ao Diam: 3.12 cm Aortic Valve AoV Area (Peak Michael): 2.12 cm2, 2.12 cm2 AoV Area (VTI): 2.00 cm2, 2.00 cm2 Peak Velocity(Antegrade Flow): 1.63 m/s Peak Gradient(Antegrade Flow): 10.65 mm[Hg] Mean Velocity(Antegrade Flow): 1.03 m/s Mean Gradient(Antegrade Flow): 5.30 mm[Hg] Velocity Time Integral: 39.25 cm Tricuspid Valve Peak Velocity (Regurgitant Flow): 2.75 m/s Pulmonic Valve Mean Gradient: 1.86 mm[Hg] Mean Velocity: 0.60 m/s Peak Velocity: 1.14 m/s, 0.98 m/s Peak Gradient: 3.86 mm[Hg], 5.20 mm[Hg] Right Atrium Right Atrium Systolic Pressure: 46.73 ml, 46.73 ml Dictated by: Ramy Chacko M.D. on 08/25/2024 at 18:02 Approved by: Ramy Chacko M.D. on 08/25/2024 at 18:06
== END 2024-08-25 08:48 | disposition home or self-care (01) ==
LOC: CARD 08:47
PROVIDERS: PCP Internal Medicine; Visit Provider Nurse Practitioner Family
DX: R06.09 Other forms of dyspnea (principal)
CPT/HCPCS: 93306

== ENCOUNTER 2024-09-01 10:39 | Outpatient (OUT) | payer MEDICARE, SELFPAY ==
--- NOTE | 2024-09-01 11:08 | PM.CN ---
Consult Note: HPI Data of Consult Patient: known to practice within the last 3 years Requesting Physician: Mariaelena Romano NP Primary Care Provider: GERA GALEANO Consult Narrative Reason for consult: f/u Narrative: Teodora Daily a pleasant 74 year old female with chronic low back pain presents for evaluation and management. low back pain 3/10 increasing to 10/10 aching burning increasing with standing, walking, activity. pain improved with forward flexion and sitting. utilizing tylenol, motrin, baclofen 10mg BID PRN with mild relief. ANGELLA 32%. pt recently underwent bilateral L3/4 TFESI with moderate improvement at L3/4 dermatomal pattern, continues to have moderate to severe pain and significant functional restrictions. shes noticing altered sensations to bilateral lower legs and pain, can only ambulate 100ft at a time before needing to take a break. cc:: CC: Mariaelena Romano NP Review of Systems ROS Status of ROS 10 or more systems reviewed and unremarkable except as noted in history and below Musculoskeletal Reports: back pain PFSH PFSH Medical History (Updated 07/19/24 @ 18:50 by Pam Cooley) Bowel obstruction ?K56.609 - Unspecified intestinal obstruction, unspecified as to partial versus complete obstruction (ICD-10) Dyspnea on exertion ?R06.09 - Other forms of dyspnea (ICD-10) Anemia ?D64.9 - Anemia, unspecified (ICD-10) Depression ?F32.A - Depression, unspecified (ICD-10) Anxiety ?F41.9 - Anxiety disorder, unspecified (ICD-10) Snores ?R06.83 - Snoring (ICD-10) COVID-19 ?U07.1 - COVID-19 (ICD-10) Migraine ?G43.909 - Migraine, unspecified, not intractable, without status migrainosus (ICD-10) IHSS (idiopathic hypertrophic subaortic stenosis) ?I42.1 - Obstructive hypertrophic cardiomyopathy (ICD-10) Knee tendinitis ?M76.899 - Other specified enthesopathies of unspecified lower limb, excluding foot (ICD-10) Hammertoe ?M20.40 - Other hammer toe(s) (acquired), unspecified foot (ICD-10) Arthritis ?M19.90 - Unspecified osteoarthritis, unspecified site (ICD-10) Reactive airway disease ?J45.909 - Unspecified asthma, uncomplicated (ICD-10) GERD (gastroesophageal reflux disease) ?K21.9 - Gastro-esophageal reflux disease without esophagitis (ICD-10) TIA (transient ischemic attack) ?G45.9 - Transient cerebral ischemic attack, unspecified (ICD-10) Left ventricular hypertrophy ?I51.7 - Cardiomegaly (ICD-10) Sjogrens syndrome ?M35.00 - Sjogren syndrome, unspecified (ICD-10) Hearing loss ?H91.90 - Unspecified hearing loss, unspecified ear (ICD-10) Keratitis ?H16.9 - Unspecified keratitis (ICD-10) Osteoarthritis of left hip ?M16.12 - Unilateral primary osteoarthritis, left hip (ICD-10) Primary osteoarthritis of both knees ?M17.0 - Bilateral primary osteoarthritis of knee (ICD-10) Osteoarthritis of spine with radiculopathy, lumbar region ?M47.26 - Other spondylosis with radiculopathy, lumbar region (ICD-10) Overactive bladder ?N32.81 - Overactive bladder (ICD-10) Osteopenia ?M85.80 - Other specified disorders of bone density and structure, unspecified site (ICD-10) Lumbosacral spondylosis without myelopathy ?M47.817 - Spondylosis without myelopathy or radiculopathy, lumbosacral region (ICD-10) Shoulder pain ?M25.519 - Pain in unspecified shoulder (ICD-10) Internal derangement of right shoulder ?M24.811 - Other specific joint derangements of right shoulder, not elsewhere classified (ICD-10) Heart palpitations ?R00.2 - Palpitations (ICD-10) Impaired glucose tolerance ?R73.02 - Impaired glucose tolerance (oral) (ICD-10) Dyspepsia ?R10.13 - Epigastric pain (ICD-10) Dry eye ?H04.129 - Dry eye syndrome of unspecified lacrimal gland (ICD-10) Decreased estrogen level ?E28.39 - Other primary ovarian failure (ICD-10) 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 - Chronic myringitis, unspecified ear (ICD-10) Tinnitus ?H93.19 - Tinnitus, unspecified ear (ICD-10) Edema, lower extremity ?R60.0 - Localized edema (ICD-10) Arthritis of right acromioclavicular joint ?M19.011 - Primary osteoarthritis, right shoulder (ICD-10) Allergic rhinitis ?J30.9 - Allergic rhinitis, unspecified (ICD-10) Dysfunction of right eustachian tube ?H69.91 - Unspecified Eustachian tube disorder, right ear (ICD-10) Sciatica ?M54.30 - Sciatica, unspecified side (ICD-10) Back pain ?M54.9 - Dorsalgia, unspecified (ICD-10) Herniated disc Osteoporosis ?M81.0 - Age-related osteoporosis without current pathological fracture (ICD-10) Osteoarthritis ?M19.90 - Unspecified osteoarthritis, unspecified site (ICD-10) Carpal tunnel syndrome ?G56.00 - Carpal tunnel syndrome, unspecified upper limb (ICD-10) Heart murmur ?R01.1 - Cardiac murmur, unspecified (ICD-10) Hypertrophic cardiomyopathy ?I42.2 - Other hypertrophic cardiomyopathy (ICD-10) HTN (hypertension) ?I10 - Essential (primary) hypertension (ICD-10) Surgical History S/P epidural steroid injection ?Z92.241 - Personal history of systemic steroid therapy (ICD-10) History of radiofrequency ablation (RFA) of nerve of lumbar spine ?Z98.890 - Other specified postprocedural states (ICD-10) History of cataract extraction with lens replacement H/O toe surgery ?Z98.890 - Other specified postprocedural states (ICD-10) S/P total hip arthroplasty ?Z96.649 - Presence of unspecified artificial hip joint (ICD-10) H/O tympanostomy ?Z98.890 - Other specified postprocedural states (ICD-10) H/O colonoscopy ?Z98.890 - Other specified postprocedural states (ICD-10) History of bunionectomy ?Z98.890 - Other specified postprocedural states (ICD-10) History of eyelid surgery ?Z98.890 - Other specified postprocedural states (ICD-10) S/P tonsillectomy and adenoidectomy ?Z90.89 - Acquired absence of other organs (ICD-10) S/P colon resection ?Z90.49 - Acquired absence of other specified parts of digestive tract (ICD-10) Hx of tonsillectomy ?Z90.89 - Acquired absence of other organs (ICD-10) History of bladder suspension procedure ?Z98.890 - Other specified postprocedural states (ICD-10) ?Z87.448 - Personal history of other diseases of urinary system (ICD-10) History of foot surgery ?Z98.890 - Other specified postprocedural states (ICD-10) History of hip replacement ?Z96.649 - Presence of unspecified artificial hip joint (ICD-10) History of colon resection ?Z90.49 - Acquired absence of other specified parts of digestive tract (ICD-10) History of hysterectomy ?Z90.710 - Acquired absence of both cervix and uterus (ICD-10) Family History Other Family history of heart disease Family history of hypertension Family history of stroke Idiopathic hypertrophic subaortic stenosis Social History Within the past year, how often did you have a drink containing alcohol: 2-3 times a week Smoking status: Former smoker Non-prescribed substance use: denies use Highest level of school completed/degree received: some college, no degree Little interest or pleasure in doing things: not at all Feeling down, depressed, or hopeless: not at all Meds Home Medications and Allergies Home Medications ?Medication ?Instructions ?Recorded ?Confirmed ?Type aspirin 81 mg capsule 81 mg PO BID 08/21/23 08/16/24 History cyclosporine 0.05 % eye drops 1 drp ophthalmic (eye) Q12H 08/21/23 08/16/24 History (Restasis MultiDose) fluticasone propionate 50 1 spray intranasal DAILY PRN 08/21/23 08/16/24 History mcg/actuation nasal allergy symptoms spray,suspension (24 Hour Allergy Relief) irbesartan 75 mg tablet 37.5 mg PO DAILY 08/21/23 08/16/24 History metoprolol succinate 25 mg 25 mg PO DAILY 08/21/23 08/16/24 History tablet,extended release 24 hr (Toprol XL) paroxetine HCl 20 mg tablet 20 mg PO DAILY 08/21/23 08/16/24 History baclofen 10 mg tablet 10 mg PO Q12H PRN muscle spasm 02/17/24 08/16/24 History loratadine-pseudoephedrine ER 10 1 tab PO Q24H PRN allergy symptoms 03/24/24 08/16/24 History mg-240 mg tablet,extended [id number] (Claritin-D 24 Hour) multivitamin (Daily Multi-Vitamin 1 tab PO DAILY 03/24/24 08/16/24 History tablet) baclofen 10 mg tablet 10 mg PO TID PRN muscle spasm #90 07/08/24 07/19/24 Rx tabs Allergies Allergy/AdvReac Type Severity Reaction Status Date / Time oxycodone Allergy Hives Verified 08/16/24 10:45 Sulfa (Sulfonamide Allergy Rash Verified 08/16/24 10:45 Antibiotics) Exam Constitutional Documenting provider has reviewed patient's vital signs: yes Common normals: no apparent distress, oriented x3, healthy appearing, alert and well nourished General appearance: cooperative HENMT Common normals: normocephalic, hearing grossly normal bilaterally and moist oral mucous membranes Head and scalp: normocephalic Eye Common normals: PERRL Pupil: PERRL Neck & C-Spine Common normals: full ROM General: normal visual inspection Chest Common normals: inspection of chest normal Respiratory Common normals: normal respiratory effort, no retractions and no use of accessory muscles Back & Pelvis Lumbar spine/lower back: lumbar ROM normal and straight leg raise negative bilaterally; no pain with ROM, no lumbar spinal tenderness, no paraspinal muscle tenderness and no paraspinal muscle spasm Other: increased pain following L4,5 dermatomes with standing and walking, improved with sitting and forward flexion strength 4/5 in BLE decreased sensation bilateral L4/5 Extremity Common normals: normal to inspection and full ROM Neuro Common normals: oriented x3 Sensorium/orientation: alert Motor exam: no movement abnormalities noted Psych Common normals: mental status grossly normal, thought process normal, cooperative, affect normal, speech normal and activity/motor behavior normal Speech: normal speech Thought process: normal thought process Results Additional Findings Additional findings: If on a controlled substance or opioids, I have checked an [place] report on this patient and there are no aberrancies noted in the prescribing history.??If on a controlled substance or opioid a drug screen was completed and reviewed within the last year, and if there has not been a drug screen completed we ordered one today to monitor higher risk, state monitored pain medication use. As part of providing excellent, safe, comprehensive care, the following was completed at our patient's visit: 1. A medication reconciliation and review to ensure accurate knowledge of current/active medications, including asking our patients to inform us about any [id number] medications or herbal remedies/nutritional supplements/alternative remedies. 2. A review to specifically ensure our patients have had annual screening for screening for depression, screening for tobacco use, and screening for unhealthy alcohol use. For concerning screenings had a discussion with the patient, provided patient education, and recommended follow-up with primary care provider when appropriate. If patient noted with a risk of falling, they received education on strength, gait, and balance training to prevent future risk of falling. Portions of this note may have been carried over from the previous visit and updated as appropriate. Please note this office utilizes paper charting in addition to the electronic medical record. A list of current medications, vitals, and PMH is available there as the clinical staff outside of myself do not have access to [employer] charting during the clinic day operations. As part of providing quality comprehensive care the current medications, vitals, and PMH were reviewed in the paper chart. Assessment and Plan Assessment and Plan (1) Lumbar stenosis with neurogenic claudication: Assessment and Plan: The patient has had over 3 months of moderate to severe low back pain with functional impairment and inadequate response to conservative care including NSAIDS (unless there are contraindication such as concurrent blood thinners), multiple oral or topical pain medications, and home exercise program/physical therapy.? Patient has completed >6 weeks of guided home exercise program and/or formal physical therapy program without relief of their symptoms.? I have reviewed the imaging of the lumbar spine and no red flags were identified.? The imaging reveals radiographic findings consistent with lumbar ddd, lumbar spondylosis, lumbar stenosis We discussed the risks and benefits of the procedure with the patient, and we are NOT planning on using sedation as outlined in the guidelines from Medicare unless there is a documented reason that sedation would be strongly recommended.?? ?The procedure will be completed with fluoroscopic guidance.? (2) Lumbar spondylosis: (3) Myalgia, other site: Plan proceed with bilateral L4-5 TFESI under fluoroscopy for multilevel stenosis with NC update lumbar xray with flexion in consideration of vertiflex, will have Dr Giedraitis review the chart. handout provided to pt today continue current medications continue HEP as tolerated f/u 2 weeks after injection
== END 2024-09-01 10:40 | disposition home or self-care (01) ==
LOC: PM 10:39
PROVIDERS: PCP Internal Medicine; Visit Provider Nurse Practitioner
DX: M48.26 Kissing spine, lumbar region (principal); M48.062 Spinal stenosis, lumbar region with neurogenic claudication; M79.18 Myalgia, other site
CPT/HCPCS: 72114; G0463

== ENCOUNTER 2024-09-01 11:19 | Outpatient (OUT) | payer MEDICARE, SELFPAY ==
--- NOTE | 2024-09-01 11:27 | XR_ITS ---
[facility] [place] [id number] Patient Name: YAO PATEL MRN: [id number] date: 1950 Sex: F Assigned Patient Location: [facility] Current Patient Location: [facility] Accession/Order Number: [id number] Exam Date: 09/01/2024 15:01 Report Date: 09/01/2024 15:06 At the request of: CHRISTOFER MATHEW NP Procedure: XR lumbar spine 6V w bending XR lumbar spine 6V w bending 09/01/2024 11:50 AM SIGNS AND SYMPTOMS: ^Asses For kissing spines process and stability ^Lumbar Spondylosis PROTOCOLS: Frontal, lateral, and oblique radiographs of the lumbar spine COMPARISON: 01/22/2024 FINDINGS: There is a dextro convex curvature of the lumbar spine. There is moderate disc height loss at L3-L4 with mild disc height loss at T12-L1 and L1-L2. The vertebral body heights are preserved. No pathologic movement on flexion or extension. Facet hypertrophy is present throughout.. Mild degenerative changes are noted in the sacroiliac joints. Atherosclerotic changes are noted in the abdominal aorta. There is total left hip arthroplasty hardware. XR/XR lumbar spine 6V w bending IMPRESSION: No fracture, subluxation, or pathologic movement. There is a dextro convex curvature of the lumbar spine. Disc and facet degenerative changes are redemonstrated, as above. This is again greatest at L3-L4. Impression dictated by: Joe Mcbride M.D. 09/01/2024 3:06 PM Dictation Location: [facility] Electronically authenticated by: [id number] Y Date: 09/01/2024 15:06
== END 2024-09-01 11:20 | disposition home or self-care (01) ==
LOC: RAD 11:20
PROVIDERS: PCP Internal Medicine; Visit Provider Nurse Practitioner
DX: M48.26 Kissing spine, lumbar region (principal); M47.816 Spondylosis without myelopathy or radiculopathy, lumbar region
CPT/HCPCS: 72114

== ENCOUNTER 2024-09-20 09:13 | Day surgery (SDC) | payer MEDICARE, SELFPAY ==
--- OUTSIDE RECORDS SUMMARY | 2024-09-20 09:17 | XMS_ITS | Encounter Summary ---
Author Organization [facility] Address [address] [place] [address] Care Team Providers Care Underwriting Manager Name Role Phone Sven Peng MD Unavailable [phone] Sven Peng MD Primary Care Provider [phone] Encounter Details Date Type Department Care Team (Late st Contact Info) Description 01/20/2023 Abstract [facility] [address] [facility] [address] [place] [phone] Annette Bright MD [address] [facility] [address] [place] [address] Social History Tobacco Use Types Packs/Day Years Used Date Smoking Tobacco: Former Cigarettes 1 40.4 0 11/19/1966 - 04/21/2007 Smokeless Tobacco: Never Alcohol Use Standard Drinks/Week Comments Yes 2 (1 standard drink = 0.6 oz pur e alcohol) 3-4 glasses of wine per week PHQ-2 Answer Date Recorded Patient Health Questionnaire-2 Score 2 11/11/2022 Comments Unknown Sex and Gender Information Value Date Recorded Sex Assigned at Female 09/06/2022 3:19 PM EDT Legal Sex Female 8:26 PM EDT Gender Identity Female 09/06/2022 3:19 PM EDT Sexual Orientation Straight 09/06/2022 3: 19 PM EDT COVID-19 Exposure Response Date Recorded In the last 10 days, have yo u been in contact with someone who was confirmed or suspected to have Coronavirus/COVID-19? No / Unsure 01/19/2023 2:50 PM EDT documented as of this encounter Plan of Treatment Upcoming Encounters Date Type Department Care Team (Late st Contact Info) Description 09/28/2024 1:00 PM EDT Office Visit [facility] [address] [place] [address] Joleen Chu PA [address] [place] [address] 10/07/2024 1:00 PM EDT Office Visit [facility] [address] [facility] [phone] Say Schulte, SET UP PERSON [address] [place] [place] [address] 12/30/2024 11:00 AM EDT Office Visit [facility] [address] [place] [phone] Teodora Chadwick DO [address] [place] [address] 04/12/2025 11:20 AM EST Office Visit [facility] [address] [place] [phone] Annette Bright MD [address] [place] [address] documented as of this encounter Visit Diagnoses Not on filedocumented in this encounter Additional Health Concerns Assessment Noted Time PHQ-9 Depression Total Score: 7 11/12/19 23 11:00 AM EDT documented as of this encounter Care Teams Underwriting Manager Relationship Specialty Start Date End Date Sven Peng MD [address] [place] [address] PCP - [employer] 04/21/20 Sven Peng MD [address] [place] [address] PCP - General Internal Medicine 08/27/22 documented as of this encounter
--- OUTSIDE RECORDS SUMMARY | 2024-09-20 09:17 | XMS_ITS | Clinical Summary ---
Author Organization [facility] Healthcare Address [address] [place] [address] Care Team Providers Care Instructional Manager Name Role Phone Sven Peng MD Unavailable [phone] Sven Peng MD Primary Care Provider [phone] Allergies Active Allergy Reactions Criticality Noted Date Comments Hydrocodone Hives 07/31/2018 Can take as needed, gets itching if takes as prescribed on hourly basis Oxycodone Hives,Itching,Rash Low 07/31/2018 Other Reaction(s): itching, hives Itching, hives Sulfa Antibiotics Anaphylaxis,Hives,It ch ing,Rash,Shortness of breath,Swelling High 07/31/2018 Other Reaction(s): hives, swelling Itching, throat swelling, hives Medications Multiple Vitamins-Minerals (Centrum Silver) chewable tablet every 12 (twelve) hours. Active metoprolol succinate XL (Toprol-XL) 25 MG 24 hr tablet Take 1 tablet by mouth in the morning. 3 Active aspirin 81 MG chewable tablet Chew 1 tablet twice a day by oral route. Active cyanocobalamin (Vitamin B-12) 100 MCG tablet Vitamin B12 Act conchis irbesartan (Avapro) 150 MG tabletIndications :Primary hypertension (CMS/HCC) TAKE 1 TABLET BY MOUTH EVERY DAY FOR 100 DAYS 90 tablet 4 4 Active fluticasone (Flonase) 50 MCG/ACT nasal spray Administer 1 spray into each nostril Daily Shake gently. Before first use, prime pump. After use, clean tip and replace cap. Active nystatin (Mycostatin) 095758 UNIT/GM powderIndications :Erythema intertrigo Apply to the affected area, once daily, 30 day supply 60 g 11 4 Active baclofen (Lioresal) 10 MG tablet TAKE 1/2 TO 1 TABLET BY MOUTH TWICE A DAY NEEDED 4 Active PARoxetine (Paxil) 20 MG tabletIndications :Current moderate episode of major depressive disorder without prior episode (HCC) (CMS/HCC) TAKE 1 TABLET BY MOUTH EVERY DAY IN THE MORNING 100 tablet 3 5 Active Ascorbic Acid (Vitamin C) 500 MG capsule Take by mouth Activ e LORazepam (Ativan) 0.5 MG tabletIndications :Anxiety Take 1 tablet (0.5 mg) by mouth every 6 (six) hours if needed for anxiety for up to 14 days 28 tablet 5 Active Active Problems Problem Noted Date Diagnosed Date Family history of heart disease 07/27/2024 SCHOFIELD (dyspnea on exertion) 07/27/2024 History of TIA (transient ischemic attack) 07/13 History of left hip replacement 07/14/2023 Multiple perforations of right tympanic membrane 05/19/2023 Bilateral lower extremity edema 11/10/2022 Decreased estrogen level 11/10/2022 Dry eye syndrome of bilateral lacrimal glands Herniated lumbar intervertebral disc 11/10/2022 History of colon resection 11/10/2022 Keratoconjunctivitis sicca, not specified as Sjogren's, bilateral 11/10/2022 Obstructive hypertrophic cardiomyopathy 11/11/19 Obesity (BMI 30.0-34.9) 11/10/2022 Osteoarthritis of spine with radiculopathy, lumb ar region 11/10/2022 Primary osteoarthritis of both knees 11/10/2022 Primary osteoarthritis of left hip 11/10/2022 Punctate keratitis of both eyes 11/10/2022 Disorder of sacrum 06/25/2022 Overview (11/10/2022): Added automatically from request for surgery [id number] Added automatically from request for surgery [id number] Intermittent palpitations 02/25/2022 Overview (11/10/2022): Last Assessment & Plan: Continue metoprolol Stable and pt without c/o palpitations Left ventricular hypertrophy 09/24/2021 Sjogren's syndrome 04/27/2021 ETD (Eustachian tube dysfunction), right 021 Arthritis of right acromioclavicular joint 04/25 Internal derangement of right shoulder 0 Former smoker 10/11/2019 Overview (11/10/2022): Last Assessment & Plan: stable Dyspepsia 07/13/2018 Impaired glucose tolerance 05/11/2018 Primary hypertension 05/11/2018 Overview (11/10/2022): Last Assessment & Plan: Hypertension is 127/72 on repeat b/p per provider- and well controlled. Continue irbesartan 75 mg daily and metoprolol 25 daily States that with 150 mg irbesartan dropped her b/p in the mornings to SBP 60 Allergic rhinitis 04/04/2018 Lumbosacral spondylosis without myelopathy 04/04 Osteopenia 04/04/2018 Overactive bladder 04/04/2018 Chronic tympanitis 03/10/2018 Bilateral tinnitus 02/24/2018 Sensorineural hearing loss, bilateral 02/24/2018 Resolved Problems Problem Noted Date Diagnosed Date Resolved Date Perforation of right tympanic membrane 05/19/2023 07/14/2023 TIA (transient ischemic attack) 11/10/2022 07/14/2023 Reactive airway disease 10/26/202006/20 History of artificial joint 10/20/2019 07/14/2023 Obesity 08/04/2018 11/11/2022 Gastroesophageal reflux disease 07/29/2018 07/14/2023 Encounters Date Type Department Care Team Description 09/01/2024 Clinisync Result Encounter [facility] External Department Unsolicited Provider, Generic External Data 08/25/2024 Clinisync Result Encounter [facility] External Department Unsolicited Provider, Generic External Data 08/06/2024 Telephone [facility] [address] [place] [address] Joleen Chu PA 07/27/2024 11:00 AM EDT Office Visit [facility] [address] [facility] [address] [place] [address] Joleen Chu PA Atypical chest pain (Primary Dx); Primary hypertension (CMS/HCC); Left ventricular hypertrophy; Obstructive hypertrophic cardiomyopathy (CMS/HCC); SCHOFIELD (dyspnea on exertion); Leukocytosis, unspecified type; Family history of heart disease 07/27/2024 Abstract [facility] [address] [facility] [address] [place] [address] Sven Peng MD 07/27/2024 Abstract [facility] [address] [facility] [address] [place] [address] Sven Peng MD 07/27/2024 Bamboo flowsheet [facility] [address] [facility] [address] [place] [address] Joleen Chu PA 07/27/2024 Travel 07/21/2024 Travel 07/20/2024 Abstract [facility] [address] [facility] [address] [place] [address] Sven Peng MD 06/23/2024 11:00 AM EST Office Visit [facility] [address] [facility] [address] [place] [address] Joleen Chu PA Primary osteoarthritis of right knee (Primary Dx); Chronic pain of right knee; Morbid (severe) obesity due to excess calories (CMS/HCC) 06/23/2024 Bamboo flowsheet [facility] [address] [facility] [address] [place] [address] Joleen Chu PA 06/23/2024 Travel from Last 3 Months Immunizations Immunization Administration Dates Next Due DTP 04/05/2022 Influenza, High Dose Seasona l, Preservative Free 03/25/2022,01/28/2019,02/13/2018 Influenza, High-dose Seasona l, Quadrivalent, Preservative Free 01/28/2024,01/25/2021,02/12/2017 Influenza, Seasonal, Quadriv alent, Adjuvanted 02/05/2023,02/25/2020 Pneumococcal Conjugate PCV 13 01/08/2018 Pneumococcal Polysaccharide PPSV23 10/11/2019 Zoster, Recombinant 06/06/2019 Zoster, live 01/27/2002 Family History Medical History Relation Name Comments Heart failure Brother Suleman Alcohol abuse Father Pernicious anemia Father Alzheimer's disease Mother Mariah Hypertension Mother Mariah Suicidality Paternal Grandfather Heart disease Sibling Heart failure Sister 1 Mey [place] Hypertension Sister 2 Mey, Indy Migraines Sister 3 Indy Stroke Sister 4 Mey Relation Name Status Comments Brother Suleman Father Mother Mariah Paternal Grandfather Sibling Alive Sister 1 Indy, Mey Sister 2 Mey, Indy Sister 3 Indy Sister 4 Mey Social History Tobacco Use Types Packs/Day Years Used Date Smoking Tobacco: Former Cigarettes 1 40.4 0 11/19/1966 - 04/21/2007 Smokeless Tobacco: Never Tobacco Cessation:Counseling Given: Not Answered Alcohol Use Standard Drinks/Week Comments Yes 2 (1 standard drink = 0.6 oz pure alcohol) 3-4 glasses of wine per week Caffeine intake : 2-3 cups per day B1300 Health Literacy Answer Date Recor ded How often do you need to hav e someone help you when you read instructions, pamphlets, or other written material from your doctor or pharmacy? Never 07/21/2024 Social Connection and Isolation Panel [NHANES] A nswer Date Recorded In a typical week, how many times do you talk on the phone with family, friends, or neighbors? Three times a week 07/21/2024 How often do you get togethe r with friends or relatives? Once a week 07/21/2024 How often do you attend chur ch or christianity services? Never 07/21/2024 Do you belong to any clubs o r organizations such as mormon groups, unions, fraternal or athletic groups, or school groups? No 07/21/2024 How often do you attend meet ings of the clubs or organizations you belong to? Never 07/21/2024 Are you , , di vorced, , never , or living with a partner? 07/21/2024 AUDIT-C Answer Date Recorded Q1: How often do you have a drink containing alc ohol? 2-4 times a month 07/21/2024 Q2: How many drinks containi ng alcohol do you have on a typical day when you are drinking? 1 or 2 07/21/2024 Q3: How often do you have si x or more drinks on one occasion? Never 07/21/2024 Overall Financial Resource Strain (CARDIA) Answe r Date Recorded How hard is it for you to pa y for the very basics like food, housing, medical care, and heating? Not very hard 07/21/2024 PHQ-2 Answer Date Recorded Patient Health Questionnaire-2 Score 0 07/27/2024 [facility] - Occupational Stress Questionnaire Answer Date Recorded Do you feel stress - tense, restless, nervous, or anxious, or unable to sleep at night because your mind is troubled all the time - these days? Only a little 07/21/2024 Exercise Vital Sign Answer Date Recorde d On average, how many days pe r week do you engage in moderate to strenuous exercise (like a brisk walk)? 0 days 07/21/2024 On average, how many minutes do you engage in exercise at this level? 0 min 07/21/2024 Hunger Vital Sign Answer Date Recorded Within the past 12 months, y ou worried that your food would run out before you got the money to buy more. Never true 07/22/19 25 Within the past 12 months, t he food you bought just didn't last and you didn't have money to get more. Never true 07/21/2024 PRAPARE - Transportation Answer Date Re corded In the past 12 months, has l ack of transportation kept you from medical appointments or from getting medications? No 05/2024 In the past 12 months, has l ack of transportation kept you from meetings, work, or from getting things needed for daily living? No 07/21/2024 Housing Stability Vital Sign Answer Dmitriy e Recorded In the last 12 months, was t here a time when you were not able to pay the mortgage or rent on time? No 07/21/2024 In the past 12 months, how m any times have you moved where you were living? 0 07/21/2024 At any time in the past 12 m [facility], were you homeless or living in a skilled nursing (including now)? No 07/21/2024 Comments Unknown Sex and Gender Information Value Date Recorded Sex Assigned at Female 09/06/2022 3:19 PM EDT Legal Sex Female 8:26 PM EDT Gender Identity Female 09/06/2022 3:19 PM EDT Sexual Orientation Straight 09/06/2022 3: 19 PM EDT Last Filed Vital Signs Vital Sign Reading Time Taken Comments Blood Pressure 122/80 07/27/2024 11:11 AM EDT Pulse 65 07/27/2024 11:11 AM EDT Temperature - - Respiratory Rate 16 07/27/2024 11:11 AM EDT Oxygen Saturation 97% 07/27/2024 11:11 AM EDT Inhaled Oxygen Concentration - - Weight 91.8 kg (202 lb 6.4 oz) 07/27/2024 11:11 AM EDT Height 158.8 cm (5' 2.5 ) 07/27/2024 11:11 AM ED T Body Mass Index 36.43 07/27/2024 11:11 AM EDT Plan of Treatment Upcoming Encounters Date Type Department Care Team (Late st Contact Info) Description 09/28/2024 1:00 PM EDT Office Visit [facility] [address] [place] [address] Joleen Chu PA [address] [facility] [address] [place] [address] 10/07/2024 1:00 PM EDT Office Visit [facility] [address] [place] [address] Say Schulte, PHYSICAL INSTRUCTOR [address] [place] [address] 12/30/2024 11:00 AM EDT Office Visit [facility] [address] [place] [address] Rinkes, Teodora E, DO [address] [place] [address] 04/12/2025 11:20 AM EST Office Visit [facility] [address] [place] [address] Annette Bright MD [address] [place] [address] Health Maintenance Due Date Last Done Comments Medicare Annual Wellness (AWV) 12/22/2024 0 12/23/2023, 07/14/2023, 11/11/2022 Colonoscopy Discontinued 01/30/2018 Colorectal Cancer Screening Discontinued Pneumococcal Vaccine: 65+ Years Completed , 01/08/2018 Mammogram Discontinued 2024, 12/21, 12/19/2022, Additional history exists Influenza Vaccine Completed 01/28/2024, , 03/25/2022, Additional history exists CT Colonography Discontinued FIT-DNA Discontinued FIT Discontinued FOBT Discontinued Sigmoidoscopy Discontinued Procedures Procedure Name Priority Date/Time Associated Diagnosis Comments XR LUMBAR SPINE 6V W BENDING 09/01/2024 3:06 PM EDT CA ECHO DOPPLER COMPLETE 08/25/2024 6:06 PM EDT AR ARTHROCENTESIS ASPIR&/INJ MAJOR JT/BURSA W/O US Routine 06/23/2024 11:25 AM EST Primary osteoarthritis of right knee Chronic pain of right knee BI MAMMOGRAM SCREENING TOMOSYNTHESIS BILATERAL Routine 2024 8:33 AM EDT Encounter for screening mammogram for breast cancer COLONOSCOPY Routine 01/30/2018 12:00 PM EDT from Last 3 Months or Most Recently Relevant to Health Maintenance Results * XR LUMBAR SPINE 6V W BENDING (09/01/2024 3:06 PM EDT) Anatomical Region Laterality Modality Other 09/01/2024 3:06 PM EDT Narrative 09/01/2024 3:08 [place] [address] XRay Report Signed Patient: TEODORA DAILY MR#: [id number] : 1950 Acct:[id number] Age/Sex: 74 / F ADM Date: 09/01/24 Loc: [facility] Attending Dr: Christofer Romano NP Ordering Physician: Christofer Romano NP Date of Service: 09/01/24 Procedure(s): XR lumbar spine 6V w bending Accession Number(s): [id number] cc: SVEN PENG ; Christofer Romano NP [place] [id number] Patient Name: TEODORA DAILY MRN: [id number] date: 1950 Sex: F Assigned Patient Location: [facility] Current Patient Location: [facility] Accession/Order Number: [id number] Exam Date: 09/01/2024 15:01 Report Date: 09/01/2024 15:06 At the request of: CHRISTOFER ROMANO NP Procedure: XR lumbar spine 6V w bending XR lumbar spine 6V w bending 09/01/2024 11:50 AM SIGNS AND SYMPTOMS: Asses For kissing spines process and stability Lumbar Spondylosis PROTOCOLS: Frontal, lateral, and oblique radiographs of the lumbar spine COMPARISON: 01/22/2024 FINDINGS: There is a dextro convex curvature of the lumbar spine. There is moderate disc height loss at L3-L4 with mild disc height loss at T12-L1 and L1-L2. The vertebral body heights are preserved. No pathologic movement on flexion or extension. Facet hypertrophy is present throughout.. Mild degenerative changes are noted in the sacroiliac joints. Atherosclerotic changes are noted in the abdominal aorta. There is total left hip arthroplasty hardware. XR/XR lumbar spine 6V w bending IMPRESSION: No fracture, subluxation, or pathologic movement. There is a dextro convex curvature of the lumbar spine. Disc and facet degenerative changes are redemonstrated, as above. This is again greatest at L3-L4. Impression dictated by: Joe Mcbride M.D. 09/01/2024 3:06 PM Dictation Location: [place] [address] Electronically authenticated by: [id number] Y Date: 09/01/2024 15:06 Dictated By: Joe Mcbride M.D. Signed By: 09/01/24 1508 DD/ 1506 TD/TT: Parlor Maid: Procedure Note Radiology, Radiologist, - 09/01/2024 [place] [address] XRay Report Signed Patient: TEODORA DAILY BMR#: [id number] : 1950cct:[id number] Age/Sex: 74 / FADM Date: 09/01/24 Loc: [facility] Attending Dr: Christofer Romano NP Ordering Physician: Christofer Romano NP Date of Service: 09/01/24 Procedure(s): XR lumbar spine 6V w bending Accession Number(s): [id number] cc: SVEN PENG ; Christofer Romano NP The [place] [address] Patient Name: TEODORA DAILY MRN: [id number] date: 1950 Sex: F Assigned Patient Location: [facility] Current Patient Location: [facility] Accession/Order Number: [id number] Exam Date: 09/01/2024 15:01 Report Date: 09/01/2024 15:06 At the request of: CHRISTOFER ROMANO NP Procedure: XR lumbar spine 6V w bending XR lumbar spine 6V w bending 09/01/2024 11:50 AM SIGNS AND SYMPTOMS: Asses For kissing spines process and stability Lumbar Spondylosis PROTOCOLS: Frontal, lateral, and oblique radiographs of the lumbar spine COMPARISON: 01/22/2024 FINDINGS: There is a dextro convex curvature of the lumbar spine. There is moderate disc height loss at L3-L4 with mild disc height loss at T12-L1 and L1-L2.The vertebral body heights are preserved. No pathologic movement on flexionor extension. Facet hypertrophy is present throughout.. Mild degenerative changes are noted in the sacroiliac joints. Atherosclerotic changes are noted in the abdominal aorta. There is totalleft hip arthroplasty hardware. XR/XR lumbar spine 6V w bending IMPRESSION: No fracture, subluxation, or pathologic movement. There is a dextro convex curvature of the lumbar spine. Disc and facet degenerative changes are redemonstrated, as above. This is again greatest at L3-L4. Impression dictated by: Joe Mcbride M.D. 09/01/2024 3:06 PM Dictation Location: [place] [address] Electronically authenticated by: [id number] Y Date: 5:06 Dictated By: Joe Mcbride M.D. Signed By:09/01/24 1508 DD/ 1506 TD/TT: Parlor Maid: Generic External Data Provider [facility] Final Result * CA ECHO DOPPLER COMPLETE (08/25/2024 6:06 PM EDT) Anatomical Region Laterality Modality Other 08/25/2024 6:06 PM EDT Narrative 08/25/2024 6:07 [place] [address] Cardiology Report Signed Patient: TEODORA DAILY MR#: [id number] : 1950 Acct:[id number] Age/Sex: 74 / F ADM Date: 08/25/24 Loc: [facility] Attending Dr: LUIS ENRIQUE CLARKE APRN Ordering Physician: LUIS ENRIQUE CLARKE APRN Date of Service: 08/25/24 Procedure(s): CA echo doppler complete Accession Number(s): [id number] cc: SVEN PENG ; LUIS ENRIQUE CLARKE APRN Patient Name: TEODORA DAILY MR#: [id number] : 1950 Exam Date: 08/25/2024 Ordering Doctor: LUIS ENRIQUE CLARKE CNP ECHOCARDIOGRAM REPORT PROCEDURE: CA ECHO DOPPLER COMPLETE INDICATIONS: Dyspnea on exertion, hypertension COMPARISON: None. DESCRIPTION: COMPLETE ECHOCARDIOGRAM Real-time transthoracic echocardiography with 2D, M-mode, spectral and color flow Doppler performed. QUALITY: Technical quality was good. LEFT VENTRICLE: Normal chamber size. Thickened septal wall. Normal systolic function. LV EF: Normal left ventricular ejection fraction, (60-65%). DIASTOLIC: Normal diastolic function. ATRIAL SEPTUM: Visually appears intact. LEFT ATRIUM: Normal chamber size. RIGHT ATRIUM: Normal chamber size. RIGHT VENTRICLE: Normal chamber size. Normal right ventricular systolic function. TRICUSPID VALVE: Normal mobility and thickness. No stenosis with mild regurgitation. RVSP 33 mmHg MITRAL VALVE: Mildly thickened with normal mobility. No evidence of mitral valve stenosis. Mild mitral annular calcification. Trivial mitral regurgitation. AORTIC VALVE: Normal trileaflet appearance. No visible sclerosis. Normal leaflet mobility. No evidence of aortic valve stenosis. Trivial aortic regurgitation. AORTIC ROOT: Normal diameter and appearance, measuring 3.5 cm. Ascending aorta is normal in size, measuring 3.1 cm. PULMONIC VALVE: Not well visualized. No stenosis. No regurgitation. PERICARDIUM: No evidence of pericardial effusion. IVC: Collapses with inspirations. PLEURA: CONCLUSION: 1. Left ventricle is normal in size and exhibits mild basal septal hypertrophy with normal systolic function. Estimated LVEF is 60 to 65%. 2. Normal right ventricular size and systolic function. 3. Normal diastolic function. 4. Mild tricuspid regurgitation. 5. Normal right-sided pressures. Adult Echocardiography Procedure Report Left Ventricle LVEDD (3.7 - 5.6 cm): 3.60 cm LVESD (2.2 - 4.0 cm): 2.89 cm LVIVS thickness (0.6 - 1.2 cm): 1.27 cm LVPW thickness (0.5 - 1.0 cm): 1.04 cm e': 0.08 m/s E - e': 10.25 LVOT Max Gradient: 4.81 mm[Hg] LVOT Area (cm2): 1.10 m/s Peak Velocity (LVOT): 1.10 m/s Mean Velocity (LVOT): 0.79 m/s LVOT Diameter 2.00 cm Left Atrium LA Volume Index (2D A2C): 23.71 ml/m2 Left Atrium Systolic Dimension: 3.43 cm Mitral Valve MV E to A Ratio: 0.69 Mitral Valve A-Wave Peak Velocity: 1.23 m/s Mitral Valve E-Wave Peak Velocity: 0.85 m/s Right Ventricle Aorta AO Root Diam: 3.45 cm Ascending Ao Diam: 3.12 cm Aortic Valve AoV Area (Peak Michael): 2.12 cm2, 2.12 cm2 AoV Area (VTI): 2.00 cm2, 2.00 cm2 Peak Velocity(Antegrade Flow): 1.63 m/s Peak Gradient(Antegrade Flow): 10.65 mm[Hg] Mean Velocity(Antegrade Flow): 1.03 m/s Mean Gradient(Antegrade Flow): 5.30 mm[Hg] Velocity Time Integral: 39.25 cm Tricuspid Valve Peak Velocity (Regurgitant Flow): 2.75 m/s Pulmonic Valve Mean Gradient: 1.86 mm[Hg] Mean Velocity: 0.60 m/s Peak Velocity: 1.14 m/s, 0.98 m/s Peak Gradient: 3.86 mm[Hg], 5.20 mm[Hg] Right Atrium Right Atrium Systolic Pressure: 46.73 ml, 46.73 ml Dictated by: Chris Garcia M.D. on 08/25/2024 at 18:02 Approved by: Chris Garcia M.D. on 08/25/2024 at 18:06 Dictated By: CHRIS GARCIA Signed By: 08/25/241806 DD/ 05 TD/TT: Parlor Maid: Procedure Note Radiology, Radiologist, MD - 08/25/2024 [place] [address] Cardiology Report Signed Patient: TEODORA DAILY BMR#: [id number] : 8Acct:[id number] Age/Sex: 74 / FADM Date: 08/25/24 Loc: [facility] Attending Dr: LUIS ENRIQUE CLARKE APRN Ordering Physician: LUIS ENRIQUE CLARKE APRN Date of Service: 08/25/24 Procedure(s): CA echo doppler complete Accession Number(s): [id number] cc: SVEN PENG ; LUIS ENRIQUE CLARKE APRN Patient Name: TEODORA DAILY MR#: [id number] : 1950 Exam Date: 08/25/2024 Ordering Doctor: LUIS ENRIQUE CLARKE [facility] ECHOCARDIOGRAM REPORT PROCEDURE: CA ECHO DOPPLER COMPLETE INDICATIONS: Dyspnea on exertion, hypertension COMPARISON: None. DESCRIPTION: COMPLETE ECHOCARDIOGRAM Real-time transthoracic echocardiography with 2D, M-mode, spectral and color flow Dopplerperformed. QUALITY: Technical quality was good. LEFT VENTRICLE: Normal chamber size. Thickened septal wall. Normal systolic function. LV EF: Normal left ventricular ejection fraction, (60-65%). DIASTOLIC: Normal diastolic function. ATRIAL SEPTUM: Visually appears intact. LEFT ATRIUM: Normal chamber size. RIGHT ATRIUM: Normal chamber size. RIGHT VENTRICLE: Normal chamber size. Normal right ventricularsystolic function. TRICUSPID VALVE: Normal mobility and thickness. No stenosis with mild regurgitation. RVSP 33 mmHg MITRAL VALVE: Mildly thickened with normal mobility. No evidence of mitral valve stenosis. Mild mitral annular calcification. Trivial mitral regurgitation. AORTIC VALVE: Normal trileaflet appearance. No visible sclerosis.Normal leaflet mobility. No evidence of aortic valve stenosis. Trivial aortic regurgitation. AORTIC ROOT: Normal diameter and appearance, measuring 3.5 cm.Ascending aorta is normal in size, measuring 3.1 cm. PULMONIC VALVE: Not well visualized. No stenosis. No regurgitation. PERICARDIUM: No evidence of pericardial effusion. IVC: Collapses with inspirations. PLEURA: CONCLUSION: 1. Left ventricle is normal in size and exhibits mild basal septalhypertrophy with normal systolic function. Estimated LVEF is 60 to 65%. 2. Normal right ventricular size and systolic function. 3. Normal diastolic function. 4. Mild tricuspid regurgitation. 5. Normal right-sided pressures. Adult Echocardiography Procedure Report Left Ventricle LVEDD (3.7 - 5.6 cm): 3.60 cm LVESD (2.2 - 4.0 cm): 2.89 cm LVIVS thickness (0.6 - 1.2 cm): 1.27 cm LVPW thickness (0.5 - 1.0 cm): 1.04 cm e': 0.08 m/s E - e': 10.25 LVOT Max Gradient: 4.81 mm[Hg] LVOT Area (cm2): 1.10 m/s Peak Velocity (LVOT): 1.10 m/s Mean Velocity (LVOT): 0.79 m/s LVOT Diameter 2.00 cm Left Atrium LA Volume Index (2D A2C): 23.71 ml/m2 Left Atrium Systolic Dimension: 3.43 cm Mitral Valve MV E to A Ratio: 0.69 Mitral Valve A-Wave Peak Velocity: 1.23 m/s Mitral Valve E-Wave Peak Velocity: 0.85 m/s Right Ventricle Aorta AO Root Diam: 3.45 cm Ascending Ao Diam: 3.12 cm Aortic Valve AoV Area (Peak Michael): 2.12 cm2, 2.12 cm2 AoV Area (VTI): 2.00 cm2, 2.00 cm2 Peak Velocity(Antegrade Flow): 1.63 m/s Peak Gradient(Antegrade Flow): 10.65 mm[Hg] Mean Velocity(Antegrade Flow): 1.03 m/s Mean Gradient(Antegrade Flow): 5.30 mm[Hg] Velocity Time Integral: 39.25 cm Tricuspid Valve Peak Velocity (Regurgitant Flow): 2.75 m/s Pulmonic Valve Mean Gradient: 1.86 mm[Hg] Mean Velocity: 0.60 m/s Peak Velocity: 1.14 m/s, 0.98 m/s Peak Gradient: 3.86 mm[Hg], 5.20 mm[Hg] Right Atrium Right Atrium Systolic Pressure: 46.73 ml, 46.73 ml Dictated by: Chris Garcia M.D. on 08/25/2024 at 18:02 Approved by: Chris Garcia M.D. on 08/25/2024 at 18:06 Dictated By: CHRIS GARCIA Signed By:08/25/241806 DD/ 05 TD/TT: Parlor Maid: us Generic External Data Provider [facility] Final Result * AR ARTHROCENTESIS ASPIR&/INJ MAJOR JT/BURSA W/O US (06/23/2024 11:25 AM EST) Joleen Ortiz PA - 06/23/2024 11:25 AM EST THUY Brown 06/23/2024 11:31 AM Arthrocentesis Date/Time: 06/23/2024 11:25 AM Performed by: THUY Brown Authorized by: THUY Brown Consent: Consent obtained: Verbal Consent given by: Patient Risks, benefits, and alternatives were discussed: yes Risks discussed: Bleeding, infection and pain Alternatives discussed: No treatment and alternative treatment Location: Location: Knee Knee: R knee Anesthesia: Anesthesia method: Local infiltration Local anesthetic: Bupivacaine 0.5% w/o epi (0.5 cc) Procedure details: Preparation: Patient was prepped and draped in usual sterile fashion Needle gauge: 25 G. Ultrasound guidance: no Approach: Lateral Steroid injected: yes (Dep-Medrol 80 mg) Specimen collected: no Post-procedure details: Dressing: Adhesive bandage Procedure completion: Tolerated well, no immediate complications us Joleen DALEY IN CLINIC/BEDSIDE ORDERABLES F inal Result * Bilateral screening mammogram with tomosynthesis (2024 8:33 AM EDT) us Teodora Chadwick DO IMG BI PROCEDURES Final Res ult * Colonoscopy (01/30/2018 12:00 PM EDT) Anatomical Region Laterality Modality Endoscopy 01/30/2018 12:0 0 PM EDT Narrative 01/30/2018 12:00 PM EDT PERFORMED AT [facility] LOCATION:[id number] IBS,INT.HEMORRHOIDS Procedure Note CONVERSION, GENERIC - 09/04/2022 PERFORMED AT [facility] LOCATION:[id number] IBS,INT.HEMORRHOIDS Guerita Hunter MD ENDOSCOPY PROCEDURE ORDERABLE S Final Result from Last 3 Months or Most Recently Relevant to Health Maintenance Insurance [employer] MED[employer]ARE [employer]VANTAGE Care Teams Instructional Manager Relationship Specialty Start Date End Date Sven Peng MD 112 [facility] [address] [place] [address] PCP - [employer] 04/21/20 Sven Peng MD [address] [place] [facility] [address] [place] [address] PCP - General Internal Medicine 08/27/22
--- OUTSIDE RECORDS SUMMARY | 2024-09-20 09:17 | XMS_ITS | Encounter Summary ---
Author Organization [facility] Address [address] [place] [address] Care Team Providers Care Hot Braider Name Role Phone Sven Peng MD Unavailable [phone] Sven Peng MD Primary Care Provider [phone] Encounter Details Date Type Department Care Team (Late st Contact Info) Description 12/26/2022 Abstract [facility] [address] [facility] 110 [place] [phone] Sven Peng MD 112 [facility] 110 [place] [address] Social History Tobacco Use Types Packs/Day Years [...] suspected to have Coronavirus/COVID-19? No / Unsure 12/04/2022 8:40 AM EDT documented as of this encounter Plan of Treatment Upcoming Encounters Date Type Department Care Team (Late st Contact Info) Description 09/28/2024 1:00 PM EDT Office Visit [facility] [address] [place] [address] Joleen Chu PA [address] [place] [address] 10/07/2024 1:00 PM EDT Office Visit [facility] [address] [place] [phone] Say Schulte, BODY WELDER [address] [place] [address] 12/30/2024 11:00 AM EDT Office Visit [facility] [address] [place] [phone] Teodora Chadwick DO [address] [place], [place] [phone] 04/12/2025 11:20 AM EST Office Visit [facility] [address] [place] [address] Annette Bright MD [address] [place], [place] [phone] documented as of this encounter Visit Diagnoses Not on filedocumented in this encounter Additional Health Concerns Assessment Noted Time PHQ-9 Depression Total Score: 7 11/12/19 23 11:00 AM EDT documented as of this encounter Care Teams Hot Braider Relationship Specialty Start Date End Date Sven Peng MD [address] [place] [address] PCP - [employer] 04/21/20 Sven Peng MD [address] [place] [address] PCP - General Internal Medicine 08/27/22 documented as of this encounter
--- OUTSIDE RECORDS SUMMARY | 2024-09-20 09:17 | XMS_ITS | Clinical Summary ---
Author Organization [facility] Address [address] [place] [address] Care Team Providers Care Home Service Advisor Name Role Phone Sven Peng MD Primary Care Provider [phone] Allergies Active Allergy Reactions Criticality Noted Date Comments Hydrocodone Hives 07/31/2018 Can take as needed, gets itching if takes as prescribed on hourly basis Sulfa (Sulfonamide Antibiotics) 12/25/2021 Medications Medication Sig Dispensed Refills Start Date End Date Status aspirin 81 mg chewable tablet Chew 1 tablet twice a day by oral route. Active tiZANidine (Zanaflex) 4 mg tablet TAKE 1 TABLET BY MOUTH EVERYDAY AT BEDTIME NEEDED Active irbesartan (Avapro) 150 mg tablet Take 75 mg by mouth in the morning. Active PARoxetine (Paxil) 20 mg tablet 20 mg in the morning. Active cholecalciferol, vitamin D3, 50 mcg (2,000 unit) capsule 1 capsule. Acti ve baclofen (Lioresal) 10 mg tablet TAKE 1/2 TO 1 TABLET BY MOUTH TWICE A DAY NEEDED 04/05/2024 Active LORazepam (Ativan) 0.5 mg tablet Take 0.5 mg by mouth every 6 (six) hours if needed. Active metoprolol succinate XL (Toprol-XL) 25 mg 24 hr tabletIndications:Ca rdiomegaly TAKE 1 TABLET BY MOUTH EVERY DAY 90 tablet 3 08/16/2024 Active Active Problems Problem Noted Date Diagnosed Date SCHOFIELD (dyspnea on exertion) 07/27/2024 Family history of heart disease 07/27/2024 History of TIA (transient ischemic attack) 07/13 Multiple perforations of right tympanic membrane 05/19/2023 Bilateral lower extremity edema 11/10/2022 Decreased estrogen level 11/10/2022 Dry eye syndrome of bilateral lacrimal glands Herniated lumbar intervertebral disc 11/10/2022 Keratoconjunctivitis sicca, not specified as Sjogren's, bilateral 11/10/2022 Osteoarthritis of spine with radiculopathy, lumb ar region 11/10/2022 Primary osteoarthritis of both knees 11/10/2022 Primary osteoarthritis of left hip 11/10/2022 Punctate keratitis of both eyes 11/10/2022 TIA (transient ischemic attack) 11/10/2022 Disorder of sacrum 06/25/2022 Overview (08/30/2022): Added automatically from request for surgery [id number] Primary hypertension 02/25/2022 Assessment & Plan (08/30/2022 10:33 AM EDT): Hypertension is 127/72 on repeat b/p per provider- and well controlled. Continue irbesartan 75 mg daily and metoprolol 25 daily States that with 150 mg irbesartan dropped her b/p in the mornings to SBP 60 Intermittent palpitations 02/25/2022 Assessment & Plan (08/30/2022 10:31 AM EDT): Continue metoprolol Stable and pt without c/o palpitations Left ventricular hypertrophy 09/24/2021 Sjogren's syndrome 04/27/2021 ETD (Eustachian tube dysfunction), right 021 Arthritis of right acromioclavicular joint 04/25 Internal derangement of right shoulder 0 History of artificial joint 10/20/2019 Former smoker 10/11/2019 Assessment & Plan (08/30/2022 10:32 AM EDT): stable History of excision of intestinal structure 06/2019 Obesity 08/04/2018 Gastroesophageal reflux disease 07/29/2018 Dyspepsia 07/13/2018 Impaired glucose tolerance 05/11/2018 Essential hypertension 05/11/2018 Allergic rhinitis 04/04/2018 Lumbosacral spondylosis without myelopathy 04/04 Overactive bladder 04/04/2018 Osteopenia 04/04/2018 Chronic tympanitis 03/10/2018 Bilateral tinnitus 02/24/2018 Sensorineural hearing loss, bilateral 02/24/2018 Encounters Date Type Department Care Team Description 09/03/2024 Telephone [facility] [address] [place] [facility] [place] [address] Marii Andre MA 08/14/2024 Refill [facility] [address] [place] [facility] [address] Ramy Chacko MD Cardiomegaly 07/29/2024 2:20 PM EDT Office Visit [place] [address] [facility] [place] [address] Orquidea Arvizu CNP Palpitations (Primary Dx); Cardiomegaly; Shortness of breath; PAC (premature atrial contraction); PVC (premature ventricular contraction); Other chest pain 07/29/2024 Orders Only [facility] [address] [place] [facility] [place] [address] Marii Andre MA SCHOFIELD (dyspnea on exertion) from Last 3 Months Family History Medical History Relation Name Comments Hypertrophic cardiomyopathy Brother pacemaker Mother Hypertrophic cardiomyopathy Sister Stroke Sister pacemaker Sister Relation Name Status Comments Brother Father Mother Sister Social History Tobacco Use Types Packs/Day Years Used Date Smoking Tobacco: Former Cigarettes Smokeless Tobacco: Never Tobacco Cessation:Counseling Given: Not Answered Alcohol Use Standard Drinks/Week Comments Not Asked 0 (1 standard drink = 0.6 oz pur e alcohol) occasional [place] Safety & Environment Answer Date Rec orded Fear of Current or Ex-Partner Not on file Emotionally Abused Not on file 06/12/2023 Physically Abused Not on file 06/12/2023 Sexually Abused Not on file 06/12/2023 Physically or Sexually Abused Not on file Sex and Gender Information Value Date Recorded Sex Assigned at Not on file Gender Identity Not on file Sexual Orientation Not on file Last Filed Vital Signs Vital Sign Reading Time Taken Comments Blood Pressure 113/66 07/29/2024 2:39 PM EDT Pulse 72 07/29/2024 2:39 PM EDT Temperature - - Respiratory Rate - - Oxygen Saturation 96% 07/29/2024 2:39 PM EDT Inhaled Oxygen Concentration - - Weight 91.2 kg (201 lb) 07/29/2024 2:39 PM EDT Height 160 cm (5' 3 ) 07/29/2024 2:39 PM EDT Body Mass Index 35.61 07/29/2024 2:39 PM EDT Plan of Treatment Upcoming Encounters Date Type Department Care Team (Late st Contact Info) Description 11/08/2024 1:00 PM EDT Office Visit [facility] [address] [place] [address] Ramy Chacko MD [address] [facility] [place] [address] Health Maintenance Due Date Last Done Comments Medicare Annual Wellness (AWV) 1950 Depression Screening 1960 Adult Tetanus 01/15/1970 Fall Risk Screening 01/15/2013 Zoster Vaccines (2 of 2) 08/01/2019 06/06/2019, 12/2001 COVID-19 Vaccine ( season) 2023 12/16/2020, 11/24/2020 Colonoscopy Discontinued 01/30/2018 Colorectal Cancer Screening Discontinued Pneumococcal Vaccine: 65+ Years Completed 10/11/2019, 01/08/2018 Mammogram Discontinued 2024, 12/19/2022 Influenza Vaccine Completed 01/28/2024, , 03/25/2022, Additional history exists CT Colonography Discontinued FIT-DNA Discontinued FIT Discontinued FOBT Discontinued HIB Vaccines Aged Out No longer eligi ble based on patient's age to complete this topic HPV Vaccines Aged Out No longer eligi ble based on patient's age to complete this topic IPV Vaccines Aged Out No longer eligi ble based on patient's age to complete this topic Meningococcal B Vaccine Aged Out No l onger eligible based on patient's age to complete this topic Meningococcal Vaccine Aged Out No laly kashmir eligible based on patient's age to complete this topic Rotavirus Vaccines Aged Out No longer eligible based on patient's age to complete this topic Sigmoidoscopy Discontinued Care Teams Home Service Advisor Relationship Specialty Start Date End Date Sven Peng MD 112 [facility] 110 [place] [address] PCP - General 02/22/22
--- OUTSIDE RECORDS SUMMARY | 2024-09-20 09:17 | XMS_ITS | Referral Summary ---
Author Organization [facility] Address [address] [place] [address] Care Team Providers Care Foreign Trade Teacher Name Role Phone Sven Peng MD Primary Care Provider [phone] Encounters Date Type Department Care Team Description 09/03/[address] [address] Marii Andre MA 08/14/2024 Refill [facility] [address] [facility] [place] [address] Ramy Chacko MD Cardiomegaly 07/29/2024 Orders Only [facility] [address] [facility] [place] [address] Marii Andre MA SCHOFIELD (dyspnea on exertion) 07/29/2024 2:20 PM EDT Office Visit [address] [place] [address] Orquidea Arvizu CNP Palpitations (Primary Dx); Cardiomegaly; Shortness of breath; PAC (premature atrial contraction); PVC (premature ventricular contraction); Other chest pain from Last 3 Months Allergies Active Allergy Reactions Criticality Noted Date [...] (08/30/2022): Added automatically from request for surgery [id number] Primary hypertension 02/25/2022 Assessment & Plan (08/30/2022 [...] tinnitus 02/24/2018 Sensorineural hearing loss, bilateral 02/24/2018 Social History Tobacco Use Types Packs/Day Years [...] Description 11/08/2024 1:00 PM EDT Office Visit [facility] [address] [place] [address] Ramy Chacko MD [address] [facility] [place] [address] Care Teams Foreign Trade Teacher Relationship Specialty Start Date End Date Sven Peng MD [address] [facility] 110 [place] [address] PCP - General 02/22/22
--- OUTSIDE RECORDS SUMMARY | 2024-09-20 09:17 | XMS_ITS | Encounter Summary ---
Author Organization [facility] Address [address] [place] [address] Care Team Providers Care Billing And Insurance Coordinator Name Role Phone Sven Peng MD Unavailable Sven Peng MD Primary Care Provider [phone] Encounter Details Date Type Department Care Team (Late st Contact Info) Description 07/27/2024 Abstract [facility] [address] [facility] 110 [place] [address] Sven Peng MD 112 [facility] 110 [place] [address] Social History Tobacco Use Types [...] often do you attend chur ch or yazidi services? Never 07/21/2024 Do you belong to any clubs o r organizations such as mandaeism groups, unions, fraternal or athletic groups, or [...] Recorded Patient Health Questionnaire-2 Score 0 07/27/2024 [facility] - Occupational Stress [...] medical appointments or from getting medications? No 04/0 05/2024 In the past 12 months, has [...] any time in the past [address] [facility], were you homeless or living in a snf (including now)? No 07/21/2024 Comments Unknown Sex and Gender Information Value Date Recorded Sex Assigned at Female 09/06/2022 3:19 PM EDT Legal Sex Female 8:26 PM EDT Gender Identity Female 09/06/2022 3:19 PM EDT Sexual Orientation Straight 09/06/2022 3: 19 PM EDT documented as of this encounter Functional Status * Over the past 2 weeks, how often have you been bothered by any of the following problems? Question Answer Date of Assessment Author Little interest or pleasure in doing things Not at all 07/27/2024 11:01 AM EDT Katheryn Smith L PN Feeling down, depressed, or hopeless Not at all 07/27/2024 11:01 AM EDT Katheryn Smith L PN Patient Health Questionnaire -2 Score 0 07/27/2024 11:01 AM EDT Katheryn Smith L PN documented as of this encounter Plan of Treatment Upcoming Encounters Date Type Department Care Team (Late st Contact Info) Description 09/28/2024 1:00 PM EDT Office Visit [facility] [address] [facility] [address] [place] [phone] Joleen Chu PA [address] [facility] 110 [place] [address] 10/07/2024 1:00 PM EDT Office Visit [facility] [address] [place] [phone] Say Schulte, SAND CUTTER [address] [place], [place] [phone] 12/30/2024 11:00 AM EDT Office Visit [facility] [address] [place] [address] Teodora Chadwick DO [address] [place] [address] 04/12/2025 11:20 AM EST Office Visit [facility] [address] [place] [address] Annette Bright MD [address] [place] [address] documented as of this encounter Visit Diagnoses Not on filedocumented in this encounter Additional Health Concerns Assessment Noted Time PHQ-9 Depression Total Score: 0 07/14/19 24 9:00 AM EDT documented as of this encounter Care Teams Billing And Insurance Coordinator Relationship Specialty Start Date End Date Sven Peng MD [address] [facility] 110 [place] [address] PCP - [employer] 04/21/20 Sven Peng MD [address] [facility] [address] [place] [address] PCP - General Internal Medicine 08/27/22 documented as of this encounter
--- OUTSIDE RECORDS SUMMARY | 2024-09-20 09:17 | XMS_ITS | Encounter Summary ---
Author Organization [facility] Address [address] [place] [address] Care Team Providers Care Slate Cutter Name Role Phone Sven Peng MD Unavailable [phone] Sven Peng MD Primary Care Provider [phone] Encounter Details Date Type Department Care Team (Late st Contact Info) Description 12/19/2022 Orders Only [facility] [address] [place] [address] A, Unknown Practice [address] [place], [place] [phone] Social History Tobacco Use Types Packs/Day Years [...] [address] [place] [address] Joleen Chu, PA [address] [place] [address] 10/07/2024 1:00 PM EDT Office Visit [facility] [address] [place] [phone] Say Schulte, COTTON ACREAGE MEASURER [address] [facility], [place] [phone] 12/30/2024 11:00 AM EDT Office Visit [facility] [address] [place] [address] Teodora Chadwick DO [address] [place] [address] 04/12/2025 11:20 AM EST Office Visit [facility] [address] [place] [phone] Annette Bright MD [address] [place], [place] [phone] documented as of this encounter Procedures Procedure Name Priority Date/Time Associated Diagnosis Comments MAMMOGRAM* Routine 12/19/2022 3:40 PM EDT MRI KNEE RIGHT WO CONTRAS Routine 12/19/2022 3:07 PM EDT documented in this encounter Results * MAMMOGRAM* (12/19/2022 3:40 PM EDT) Anatomical Region Laterality Modality Radiographic Ritu ging us Unknown Practice A IMG XR PROCEDURES Final Resul t * MRI KNEE RIGHT WO CONTRAS (12/19/2022 3:07 PM EDT) Anatomical Region Laterality Modality Radiographic Ritu ging us Unknown Practice A IMG XR PROCEDURES Final Resul t documented in this encounter Visit Diagnoses Not on filedocumented in this encounter Additional Health Concerns Assessment Noted Time PHQ-9 Depression Total Score: 7 11/12/19 23 11:00 AM EDT documented as of this encounter Care Teams Slate Cutter Relationship Specialty Start Date End Date Sven Peng MD 112 [facility] 110 [place] [address] PCP - [employer] 04/21/20 Sven Peng MD [address] [facility] [address] [place] [address] PCP - General Internal Medicine 08/27/22 documented as of this encounter
--- OUTSIDE RECORDS SUMMARY | 2024-09-20 09:17 | XMS_ITS | Encounter Summary ---
Author Organization [facility] Address [address] [place] [address] Care Team Providers Care Software Development Engineer Name Role Phone Sven Peng MD Unavailable [phone] Sven Peng MD Primary Care Provider [phone] Encounter Details Date Type Department Care Team (Late st Contact Info) Description 12/10/2022 Abstract [facility] [address] [facility] [address] [place] [address] Teodora Chadwick, [address] [facility] [address] [place] [address] Social History Tobacco Use Types Packs/Day Years [...] [address] [place] [address] Joleen Chu PA [address] [place] [address] 10/07/2024 1:00 PM EDT Office Visit [facility] [address] [place] [phone] Say Schulte, FLEXIBLE SHAFT WINDER [address] [place] [address] 12/30/2024 11:00 AM EDT Office Visit [facility] [address] [place] [phone] Teodora Chadwick DO [address] [place] [address] 04/12/2025 11:20 AM EST Office Visit [facility] [address] [place] [phone] Annette Bright MD [address] [place] [address] documented as of this encounter Visit Diagnoses Not on filedocumented in this encounter Additional Health Concerns Assessment Noted Time PHQ-9 Depression Total Score: 7 11/12/19 23 11:00 AM EDT documented as of this encounter Care Teams Software Development Engineer Relationship Specialty Start Date End Date Sven Peng MD [address] [place] [address] PCP - [employer] 04/21/20 Sven Peng MD [address] [place] [address] PCP - General Internal Medicine 08/27/22 documented as of this encounter
--- OUTSIDE RECORDS SUMMARY | 2024-09-20 09:18 | XMS_ITS | Encounter Summary ---
Author Organization [facility] Address [address] [place] [place] [address] Care Team Providers Care Ferryboat Helper Name Role Phone Sven Peng MD Unavailable [phone] Sven Peng MD Primary Care Provider [phone] Encounter Details Date Type Department Care Team (Late st Contact Info) Description 10/21/2023 Clinisync Result Encounter [facility] External Department Unsolicited Provider, Generic External Data Social History Tobacco Use Types Packs/Day Years Used Date Smoking Tobacco: Former Cigarettes 1 40.4 0 11/19/1966 - 04/21/2007 Smokeless Tobacco: Never Alcohol Use Standard Drinks/Week Comments Yes 2 (1 standard drink = 0.6 oz pure alcohol) 3-4 glasses of wine per week Caffeine intake : 2-3 cups per day AUDIT-C Answer Date Recorded Q1: How often do you have a drink containing alc ohol? 2-3 times a week 05/18/2023 Q2: How many drinks containi ng alcohol do you have on a typical day when you are drinking? 1 or 2 05/18/2023 Q3: How often do you have si x or more drinks on one occasion? Never 05/18/2023 PHQ-2 Answer Date Recorded Patient Health Questionnaire-2 [...] [address] [place] [address] Joleen Chu PA [address] [place] [address] 10/07/2024 1:00 PM EDT Office Visit [facility] [address] [place] [phone] Say Schulte, SUPERVISOR TUNNEL HEADING [address] [facility], [place] [address] 12/30/2024 11:00 AM EDT Office Visit [facility] [address] [place] [address] Teodora Chadwick DO [address] [place] [address] 04/12/2025 11:20 AM EST Office Visit [facility] [address] [place] [address] Annette Bright MD [address] [place], [place] [phone] documented as of this encounter Procedures Procedure Name Priority Date/Time Associated Diagnosis Comments CA ECHO DOPPLER COMPLETE 10/21/2023 6:30 PM EDT documented in this encounter Results * CA ECHO DOPPLER COMPLETE (10/21/2023 6:30 PM EDT) Anatomical Region Laterality Modality Other 10/21/2023 6:30 PM EDT Narrative 10/21/2023 6:31 PM EDT The [address] [address] Cardiology Report Signed Patient: ABIMBOLAASTRIDTEODORA B MR#: [id number] : 1950 Acct:[id number] Age/Sex: 73 / F ADM Date: 10/20/23 Loc: CARD Attending Dr: CHRIS CHACKO Ordering Physician: CHRIS CHACKO Date of Service: 10/20/23 Procedure(s): CA echo doppler complete Accession Number(s): [id number] cc: SVEN PENG ; CHRIS CHACKO Patient Name: TEODORA PATEL MR#: [id number] : 1950 Exam Date: 10/20/2023 Ordering Doctor: DR CHRIS CHACKO M.D. ECHOCARDIOGRAM REPORT PROCEDURE: CA ECHO DOPPLER COMPLETE INDICATIONS: Dyspnea, Palpitations COMPARISON: None. DESCRIPTION: COMPLETE ECHOCARDIOGRAM Real-time transthoracic echocardiography with 2D, M-mode, spectral and color flow Doppler performed. QUALITY: Technical quality was good. LEFT VENTRICLE: Normal chamber size. Thickened septal wall. Mild to moderate concentric left ventricular hypertrophy. Hyperdynamic systolic function. LV EF: Estimated left ventricular ejection fraction is hyperdynamic at 70-75 %. DIASTOLIC: Diastolic function is indeterminate. ATRIAL SEPTUM: LEFT ATRIUM: Normal chamber size. RIGHT ATRIUM: Normal chamber size. RIGHT VENTRICLE: Normal chamber size. Normal right ventricular systolic function. TRICUSPID VALVE: Normal mobility and thickness. No stenosis with trivial regurgitation. Mild pulmonary hypertension. RVSP 37 mmHg MITRAL VALVE: Normal mobility and thickness. No evidence of mitral valve stenosis. There is no mitral annular calcification. Trivial mitral regurgitation. AORTIC VALVE: Normal trileaflet appearance. No visible sclerosis. Normal leaflet mobility. No evidence of aortic valve stenosis. Trivial aortic regurgitation. AORTIC ROOT: Normal diameter and appearance. PULMONIC VALVE: Normal thickness and mobility. No stenosis. No regurgitation. PERICARDIUM: No evidence of pericardial effusion. IVC: Collapses with inspirations. Normal size. PLEURA: CONCLUSION: 1. Mild to moderate concentric left ventricular hypertrophy with hyperdynamic systolic function. LVEF is estimated at 70 to 75%. 2. Normal right ventricular size and systolic function. 3. No significant valvular dysfunction. 4. Mild elevation of right-sided pressures. RVSP is 37 mmHg. Adult Echocardiography Procedure Report Left Ventricle LVEDD (3.7 - 5.6 cm): 3.38 cm LVESD (2.2 - 4.0 cm): 2.10 cm LVIVS thickness (0.6 - 1.2 cm): 1.56 cm LVPW thickness (0.5 - 1.0 cm): 0.99 cm e': 0.08 m/s E - e': 7.14 LVOT Max Gradient: 7.27 mm[Hg] LVOT Area (cm2): 1.35 m/s Peak Velocity (LVOT): 1.35 m/s Mean Velocity (LVOT): 0.97 m/s LVOT Diameter 2.05 cm Left Ventricular Ejection Fraction: 70-75 % Left Atrium LA Volume Index (2D A2C): 22.05 ml/m2 Left Atrium Systolic Dimension: 3.56 cm Mitral Valve MV E to A Ratio: 0.58 Mitral Valve A-Wave Peak Velocity: 1.01 m/s Mitral Valve E-Wave Peak Velocity: 0.59 m/s Right Ventricle RV Internal Diastolic Dimension: 3.39 cm Aorta AO Root Diam: 3.24 cm Ascending Ao Diam: 2.69 cm Aortic Valve AoV Area (Peak Michael): 2.43 cm2, 2.43 cm2 AoV Area (VTI): 2.84 cm2, 2.77 cm2 Peak Velocity(Antegrade Flow): 1.83 m/s, 1.83 m/s Peak Gradient(Antegrade Flow): 13.46 mm[Hg], 13.46 mm[Hg] Mean Velocity(Antegrade Flow): 1.28 m/s, 1.22 m/s Mean Gradient(Antegrade Flow): 7.34 mm[Hg], 6.73 mm[Hg] Velocity Time Integral: 37.89 cm, 36.16 cm Tricuspid Valve Peak Velocity (Regurgitant Flow): 2.30 m/s, 2.91 m/s Pulmonic Valve Mean Gradient: 1.91 mm[Hg], 2.30 mm[Hg] Mean Velocity: 0.65 m/s, 0.71 m/s Peak Velocity: 1.01 m/s, 0.91 m/s Peak Gradient: 3.30 mm[Hg], 3.51 mm[Hg], 4.73 mm[Hg] Right Atrium Right Atrium Systolic Pressure: 36.47 ml, 36.47 ml Dictated by: Chris Chacko M.D. on 10/21/2023 at 18:24 Approved by: Chris Chacko M.D. on 10/21/2023 at 18:30 Dictated By: CHRIS CHACKO Signed By: 10/21/231830 DD/ 29 TD/TT: Pulmonary Care Nurse: Procedure Note Radiology, Radiologist, - 10/21/2023 [place] [address] Cardiology Report Signed Patient: TEODORA PATEL BMR#: [id number] : 8Acct:[id number] Age/Sex: 73 / FADM Date: 10/20/23 Loc: CARD Attending Dr: CHRIS CHACKO Ordering Physician: CHRIS CHACKO Date of Service: 10/20/23 Procedure(s): CA echo doppler complete Accession Number(s): [id number] cc: SVEN PENG ; CHRIS CHACKO Patient Name: TEODORA PATEL MR#: [id number] : 1950 Exam Date: 10/20/2023 Ordering Doctor: DR CHRIS CHACKO M.D. ECHOCARDIOGRAM REPORT PROCEDURE: CA ECHO DOPPLER COMPLETE INDICATIONS: Dyspnea, Palpitations COMPARISON: None. DESCRIPTION: COMPLETE ECHOCARDIOGRAM Real-time transthoracic echocardiography with 2D, M-mode, spectral and color flow Dopplerperformed. QUALITY: Technical quality was good. LEFT VENTRICLE: Normal chamber size. Thickened septal wall. Mild to moderate concentric left ventricular hypertrophy. Hyperdynamic systolic function. LV EF: Estimated left ventricular ejection fraction is hyperdynamic at 70-75 %. DIASTOLIC: Diastolic function is indeterminate. ATRIAL SEPTUM: LEFT ATRIUM: Normal chamber size. RIGHT ATRIUM: Normal chamber size. RIGHT VENTRICLE: Normal chamber size. Normal right ventricularsystolic function. TRICUSPID VALVE: Normal mobility and thickness. No stenosis withtrivial regurgitation. Mild pulmonary hypertension. RVSP 37 mmHg MITRAL VALVE: Normal mobility and thickness. No evidence of mitralvalve stenosis. There is no mitral annular calcification. Trivial mitral regurgitation. AORTIC VALVE: Normal trileaflet appearance. No visible sclerosis.Normal leaflet mobility. No evidence of aortic valve stenosis. Trivial aortic regurgitation. AORTIC ROOT: Normal diameter and appearance. PULMONIC VALVE: Normal thickness and mobility. No stenosis. No regurgitation. PERICARDIUM: No evidence of pericardial effusion. IVC: Collapses with inspirations. Normal size. PLEURA: CONCLUSION: 1. Mild to moderate concentric left ventricular hypertrophy withhyperdynamic systolic function. LVEF is estimated at 70 to 75%. 2. Normal right ventricular size and systolic function. 3. No significant valvular dysfunction. 4. Mild elevation of right-sided pressures. RVSP is 37 mmHg. Adult Echocardiography Procedure Report Left Ventricle LVEDD (3.7 - 5.6 cm): 3.38 cm LVESD (2.2 - 4.0 cm): 2.10 cm LVIVS thickness (0.6 - 1.2 cm): 1.56 cm LVPW thickness (0.5 - 1.0 cm): 0.99 cm e': 0.08 m/s E - e': 7.14 LVOT Max Gradient: 7.27 mm[Hg] LVOT Area (cm2): 1.35 m/s Peak Velocity (LVOT): 1.35 m/s Mean Velocity (LVOT): 0.97 m/s LVOT Diameter 2.05 cm Left Ventricular Ejection Fraction: 70-75 % Left Atrium LA Volume Index (2D A2C): 22.05 ml/m2 Left Atrium Systolic Dimension: 3.56 cm Mitral Valve MV E to A Ratio: 0.58 Mitral Valve A-Wave Peak Velocity: 1.01 m/s Mitral Valve E-Wave Peak Velocity: 0.59 m/s Right Ventricle RV Internal Diastolic Dimension: 3.39 cm Aorta AO Root Diam: 3.24 cm Ascending Ao Diam: 2.69 cm Aortic Valve AoV Area (Peak Michael): 2.43 cm2, 2.43 cm2 AoV Area (VTI): 2.84 cm2, 2.77 cm2 Peak Velocity(Antegrade Flow): 1.83 m/s, 1.83 m/s Peak Gradient(Antegrade Flow): 13.46 mm[Hg], 13.46 mm[Hg] Mean Velocity(Antegrade Flow): 1.28 m/s, 1.22 m/s Mean Gradient(Antegrade Flow): 7.34 mm[Hg], 6.73 mm[Hg] Velocity Time Integral: 37.89 cm, 36.16 cm Tricuspid Valve Peak Velocity (Regurgitant Flow): 2.30 m/s, 2.91 m/s Pulmonic Valve Mean Gradient: 1.91 mm[Hg], 2.30 mm[Hg] Mean Velocity: 0.65 m/s, 0.71 m/s Peak Velocity: 1.01 m/s, 0.91 m/s Peak Gradient: 3.30 mm[Hg], 3.51 mm[Hg], 4.73 mm[Hg] Right Atrium Right Atrium Systolic Pressure: 36.47 ml, 36.47 ml Dictated by: Chris Chacko M.D. on 10/21/2023 at 18:24 Approved by: Chris Chacko M.D. on 10/21/2023 at 18:30 Dictated By: CHRIS CHACKO Signed By:10/21/231830 DD/ 29 TD/TT: Pulmonary Care Nurse: us Generic External Data Provider [facility] Final Result documented in this encounter Visit Diagnoses Not on filedocumented in this encounter Additional Health Concerns Assessment Noted Time PHQ-9 Depression Total Score: 0 07/14/19 24 9:00 AM EDT documented as of this encounter Care Teams Ferryboat Helper Relationship Specialty Start Date End Date Sven Peng MD [address] [facility] [address] [place] [address] PCP - [employer] 04/21/20 Sven Peng MD [address] [facility] 110 [place] [address] PCP - General Internal Medicine 08/27/22 documented as of this encounter
--- OUTSIDE RECORDS SUMMARY | 2024-09-20 09:18 | XMS_ITS | Encounter Summary ---
Author Organization [facility] Address [address] [facility] [place] [address] Care Team Providers Care Boat Laborer Name Role Phone Sven Peng MD Unavailable [phone] Sven Peng MD Primary Care Provider [phone] Encounter Details Date Type Department Care Team (Late st Contact Info) Description 07/16/2023 Abstract [facility] [address] [facility] 110 [place] [address] Sven Peng MD 112 [facility] 110 [place] [address] Social History Tobacco Use Types [...] [address] [place] [address] Joleen Chu PA [address] [place] [address] 10/07/2024 1:00 PM EDT Office Visit [facility] [address] [place] [phone] Say Schulte, SCREEN MACHINE OPERATOR [address] [facility] [place] [address] 12/30/2024 11:00 AM EDT Office Visit [facility] [address] [place] [address] Teodora Chadwick DO [address] [place], [place] [address] 04/12/2025 11:20 AM EST Office Visit [facility] [address] [place] [address] Annette Bright MD [address] [place], [place] [phone] documented as of this encounter Visit Diagnoses Not on filedocumented in this encounter Additional Health Concerns Assessment Noted Time PHQ-9 Depression Total Score: 0 07/14/19 24 9:00 AM EDT documented as of this encounter Care Teams Boat Laborer Relationship Specialty Start Date End Date Sven Peng MD [address] [facility] 110 [place] [address] PCP - [employer] 04/21/20 Sven Peng MD 112 [facility] 110 [place] [address] PCP - General Internal Medicine 08/27/22 documented as of this encounter
--- OUTSIDE RECORDS SUMMARY | 2024-09-20 09:18 | XMS_ITS | Encounter Summary ---
Author Organization [facility] Address [address] [place] [address] Care Team Providers Care Senior Marketing Specialist Name Role Phone Sven Peng MD Unavailable [phone] Sven Peng MD Primary Care Provider [phone] Encounter Details Date Type Department Care Team (Late st Contact Info) Description 01/15/2024 Clinisync Result Encounter [facility] External Department Unsolicited [...] [address] [place] [address] Joleen Chu PA [address] [place] [address] 10/07/2024 1:00 PM EDT Office Visit [facility] [address] [facility] [place] [phone] Say Schulte, MAIN LINE STATION ENGINEER 629 [facility], [place] [address] 12/30/2024 11:00 AM EDT Office Visit [facility] [address] [place] [address] Teodora Guajardo DO [address] [place], [place] [address] 04/12/2025 11:20 AM EST Office Visit [facility] [address] [place] [phone] Annette Bright MD [address] [place], [place] [phone] documented as of this encounter Procedures Procedure Name Priority Date/Time Associated Diagnosis Comments MM TOMOSYNTHESIS SCREENING BI 01/15/2024 3:47 PM EDT documented in this encounter Results * MM TOMOSYNTHESIS SCREENING BI (01/15/2024 3:47 PM EDT) Anatomical Region Laterality Modality Other 01/15/2024 3:47 PM EDT Narrative 01/15/2024 3:48 PM EDT The [address] [address] Mammography Report Signed Patient: TEODORA PATEL MR#: [id number] : 1950 Acct:[id number] Age/Sex: 73 / F ADM Date: 01/15/24 Loc: MAMMO Attending Dr: TEODORA GUAJARDO Ordering Physician: TEODORA GUAJARDO Results: Date of Service: 01/15/24 Follow Up: Procedure(s): MM tomosynthesis screening BI Accession Number(s): [id number] cc: SVEN PENG ; TEODORA GUAJARDO Patient Name: TEODORA PATEL MR#: [id number] : 1950 Exam Date: 01/15/2024 Ordering Doctor: DR. TEODORA GUAJARDO D.O. RADIOLOGY REPORT PROCEDURE: MM TOMOSYNTHESIS SCREENING BI COMPARISON: MM TOMOSYNTHESIS SCREENING BI, 12/19/2022. MG MAMM SCREEN 3D SHARAD CAD, 12/07/2021. INDICATIONS: Screening for malignant neoplasm Calculator Name NCI Breast Cancer Risk Assessment Tool 5 Year Breast Cancer Risk 2.10% Lifetime Breast Cancer Risk 4.60% Personal Breast Cancer No Personal Ovarian Cancer No Treatments None Family Cancers Sister with uterine cancer at age 60. LOCATION: The [facility] BREAST COMPOSITION: There are scattered areas of fibroglandular density. FINDINGS: DIAGNOSTIC CATEGORY 1--NEGATIVE. RIGHT [...] BIOPSIED. Dictated by: Bryan Salguero M.D. on 01/15/2024 at 15:44 Approved by: Bryan Salguero M.D. on 01/15/2024 at 15:46 Dictated By: Bryan Salguero M.D. Signed By: 01/15/24 1548 DD/ 1547 TD/TT: Therapy Manager: Procedure Note Radiology, Radiologist, - 01/15/2024 [place] [address] Mammography Report Signed Patient: TEODORA PATEL BMR#: [id number] : 8Acct:[id number] Age/Sex: 73 / FADM Date: 01/15/24 Loc: MAMMO Attending Dr: TEODORA GUAJARDO Ordering Physician: TEODORA GUAJARDOResults: Date of Service: 01/15/24Follow Up: Procedure(s): MM tomosynthesis screening BI Accession Number(s): [id number] cc: SVEN PENG ; TEODORA GUAJARDO Patient Name: TEODORA PATEL MR#: [id number] : 1950 Exam Date: 01/15/2024 Ordering Doctor: DR. TEODORA GUAJARDO D.O. RADIOLOGY REPORT PROCEDURE: MM TOMOSYNTHESIS SCREENING BI COMPARISON: MM TOMOSYNTHESIS SCREENING BI, 12/19/2022. MG MAMM BPDONT4G SHARAD CAD, 12/07/2021. INDICATIONS: Screening for malignant neoplasm Calculator Name NCI Breast Cancer Risk Assessment Tool 5 Year Breast Cancer Risk 2.10% Lifetime Breast Cancer Risk 4.60% Personal Breast Cancer No Personal Ovarian Cancer No Treatments None Family Cancers Sister with uterine cancer at age 60. LOCATION: The [facility] BREAST COMPOSITION: There are scattered areas of fibroglandulardensity. FINDINGS: DIAGNOSTIC CATEGORY 1--NEGATIVE. RIGHT BREAST: No significant suspicious finding. No significant changehas occurred. LEFT BREAST: No significant suspicious finding. No significant changehas occurred. RECOMMENDATIONS: ROUTINE MAMMOGRAM AND CLINICAL EVALUATION IN 12 MONTHS. PLEASE NOTE: A NORMAL MAMMOGRAM DOES NOT EXCLUDE THE POSSIBILITY OFBREAST CANCER. A CLINICALLY SUSPICIOUS PALPABLE LUMP SHOULD BE BIOPSIED. Dictated by: Bryan Salguero M.D. on 01/15/2024 at 15:44 Approved by: Bryan Salguero M.D. on 01/15/2024 at 15:46 Dictated By: Bryan Salguero M.D. Signed By:01/15/24 1548 DD/ 1547 TD/TT: Therapy Manager: us Generic External Data Provider [facility] Final Result documented in this encounter Visit Diagnoses Not on filedocumented in this encounter Additional Health Concerns Assessment Noted Time PHQ-9 Depression Total Score: 0 07/14/19 24 9:00 AM EDT documented as of this encounter Care Teams Senior Marketing Specialist Relationship Specialty Start Date End Date Sven Peng MD [address] [facility] 110 [place] [address] PCP - [employer] 04/21/20 Sven Peng MD [address] [facility] 110 [place] [address] PCP - General Internal Medicine 08/27/22 documented as of this encounter
--- OUTSIDE RECORDS SUMMARY | 2024-09-20 09:18 | XMS_ITS | Encounter Summary ---
Author Organization [facility] Address [address] [place] [address] Care Team Providers Care Rn Ostomy Name Role Phone Sven Peng MD Unavailable [phone] Sven Peng MD Primary Care Provider [phone] Encounter Details Date Type Department Care Team (Late st Contact Info) Description 07/20/2024 Abstract [facility] [address] [facility] [facility] 110 [place] [address] Sven Peng MD 112 [facility] 110 [place] [address] Social History Tobacco Use Types [...] often do you attend chur ch or mormon services? Never 07/21/2024 Do you belong to any clubs o r organizations such as tenriism groups, unions, fraternal or athletic groups, or [...] Recorded Patient Health Questionnaire-2 Score 2 11/11/2022 [facility] - Occupational Stress [...] any time in the past 12 m [facility], were you homeless or living in a alf (including now)? No 07/21/2024 Comments Unknown Sex and Gender Information Value Date Recorded Sex Assigned at Female 09/06/2022 3:19 PM EDT Legal Sex Female 8:26 PM EDT Gender Identity Female 09/06/2022 3:19 PM EDT Sexual Orientation Straight 09/06/2022 3: 19 PM EDT documented as of this encounter Functional Status * Audit-C Score Answer Date of Assessment Author 2 07/21/2024 10:03 AM EDT Mychart, Generic * Q1: How often do you have a drink containing alcohol? Answer Date of Assessment Author 2-4 times a month 07/21/2024 10:03 AM EDT Mychar t, Generic * Q2: How many drinks containing alcohol do you have on a typical day when you are drinking? Answer Date of Assessment Author 1 or 2 07/21/2024 10:03 AM EDT Mychart, Generic * Q3: How often do you have six or more drinks on one occasion? Answer Date of Assessment Author Never 07/21/2024 10:03 AM EDT Mychart, Generic documented as of this encounter Plan of Treatment Upcoming Encounters Date Type Department Care Team (Late st Contact Info) Description 09/28/2024 1:00 PM EDT Office Visit [facility] [address] [place] [address] Joleen Chu PA [address] [place] [address] 10/07/2024 1:00 PM EDT Office Visit [facility] [address] [place] [address] Say Schulte, DIABETES EDUCATION COORDINATOR [address] [place], [place] [phone] 12/30/2024 11:00 AM EDT Office Visit [facility] [address] [place] [address] Teodora Chadwick DO [address] [place] [address] 04/12/2025 11:20 AM EST Office Visit [facility] [address] [place] [address] Annette Bright MD [address] [place] [address] documented as of this encounter Visit Diagnoses Not on filedocumented in this encounter Additional Health Concerns Assessment Noted Time PHQ-9 Depression Total Score: 0 07/14/19 24 9:00 AM EDT documented as of this encounter Care Teams Rn Ostomy Relationship Specialty Start Date End Date Sven Peng MD [address] [facility] 110 [place] [address] PCP - [employer] 04/21/20 Sven Peng MD [address] [facility] 110 [place] [address] PCP - General Internal Medicine 08/27/22 documented as of this encounter
--- OUTSIDE RECORDS SUMMARY | 2024-09-20 09:18 | XMS_ITS | Encounter Summary ---
Author Organization [facility] Address [address] [place] [address] Care Team Providers Care Senior Administrative Associate Name Role Phone Sven Peng MD Unavailable [phone] Sven Peng MD Primary Care Provider [phone] Encounter Details Date Type Department Care Team (Late st Contact Info) Description 01/22/2024 Clinisync Result Encounter [facility] External Department Unsolicited [...] [address] [place] [address] Joleen Chu PA [address] [place] [address] 10/07/2024 1:00 PM EDT Office Visit [facility] [address] [facility] [place] [phone] Say Schulte, OBIEE CONSULTANT [address] [facility], [place] [phone] 12/30/2024 11:00 AM EDT Office Visit [facility] [address] [place] [address] Teodora Chdawick DO [address] [place], [place] [phone] 04/12/2025 11:20 AM EST Office Visit [facility] [address] [place] [phone] Annette Bright MD [address] [place], [place] [phone] documented as of this encounter Procedures Procedure Name Priority Date/Time Associated Diagnosis Comments MR LUMBAR SPINE WO CON 01/22/2024 2:44 PM EDT documented in this encounter Results * MR LUMBAR SPINE WO CON (01/22/2024 2:44 PM EDT) Anatomical Region Laterality Modality Other 01/22/2024 2:44 PM EDT Narrative 01/22/2024 2:46 PM EDT The [address] [address] Magnetic Resonance Report Signed Patient: TEODORA PATEL Jessica MR#: [id number] : 1950 Acct:[id number] Age/Sex: 74 / F ADM Date: 01/22/24 Loc: MRI Attending Dr: Christofer Mathew NP Ordering Physician: Christofer Mathew NP Date of Service: 01/22/24 Procedure(s): MR lumbar spine wo con Accession Number(s): [id number] cc: SVEN PENG ; Christofer Mathew NP [place] [id number] Patient Name: TEODORA PATEL MRN: [id number] date: 1950 Sex: F Assigned Patient Location: MRI Current Patient Location: MRI Accession/Order Number: [id number] Exam Date: 01/22/2024 13:00 Report Date: 01/22/2024 14:44 At the request of: CHRISTOFER MATHEW Procedure: MR lumbar spine wo con MR lumbar spine wo con, 01/22/2024 1:00 PM EDT INDICATION: Lumbar spondylosis COMPARISON: Prior x-ray of the lumbar spine dated 05/12/2018 and MRI of the lumbar spine dated 11/26/2017 TECHNIQUE: Multiplanar, multisequential MRI images of lumbar spine were obtained without contrast. FINDINGS: For dictation purposes, the lowest complete disc space in the lumbar spine considered as L5-S1. There is normal physiologic lumbar lordosis and dextroscoliosis centered on L3-L4. The vertebral height is preserved. The conus medullaris is at the level of L2. No signal abnormality within the visualized spinal cord is noted. Levels of T11-T12, and T12-L1 are unremarkable. At the level of L1-L2, there are disc bulge with mild bilateral neuroforaminal narrowing and no canal stenosis. At the level of L2-L3, there are disc bulge with moderate bilateral neuroforaminal narrowing and moderate canal stenosis. At the level of L3-4, there are disc bulge with moderate right and severe left neuroforaminal narrowing and moderate canal stenosis. There are Modic type II changes at this level. At the level of L4-5, there are disc bulge with mild right and moderate left neuroforaminal narrowing and moderate canal stenosis. At the level of L5-S1, there are disc bulge with mild right neuroforaminal narrowing and no canal stenosis. The paraspinal muscles are unremarkable. MR/MR lumbar spine wo con IMPRESSION: Moderate degenerative changes of lumbar spine in particular at L2-L3, L3-L4 and L4-L5. Electronically authenticated by: JAKE WEBSTER Date: 01/22/2024 14:44 Dictated By: Jake Webster M.D. Signed By: 01/22/24 1446 DD/ 43 TD/TT: Insurance Loss Adjuster: Procedure Note Radiology, Radiologist, MD - 01/22/2024 [place] [address] Magnetic Resonance Report Signed Patient: TEODORA PATEL BMR#: [id number] : 1950cct:[id number] Age/Sex: 74 / FADM Date: 01/22/24 Loc: MRI Attending Dr: Christofer Mathew OBIEE CONSULTANT Ordering Physician: Christofer Mathew NP Date of Service: 01/22/24 Procedure(s): MR lumbar spine wo con Accession Number(s): [id number] cc: SVEN PENG ; Christofer Mathew NP The [place] [address] Patient Name: TEODORA PATEL MRN: [id number] date: 1950 Sex: F Assigned Patient Location: MRI Current Patient Location: MRI Accession/Order Number: [id number] Exam Date: 01/22/2024 13:00 Report Date: 01/22/2024 14:44 At the request of: CHRISTOFER MATHEW Procedure: MR lumbar spine wo con MR lumbar spine wo con, 01/22/2024 1:00 PM EDT INDICATION: Lumbar spondylosis COMPARISON: Prior x-ray of the lumbar spine dated 05/12/2018 and MRI of the lumbar spine dated 11/26/2017 TECHNIQUE: Multiplanar, multisequential MRI images of lumbar spine were obtained without contrast. FINDINGS: For dictation purposes, the lowest complete disc space in the lumbar spine considered as L5-S1. There is normal physiologic lumbar lordosis and dextroscoliosis centeredon L3-L4. The vertebral height is preserved. The conus medullaris is at the level of L2. No signal abnormality withinthe visualized spinal cord is noted. Levels of T11-T12, and T12-L1 are unremarkable. At the level of L1-L2, there are disc bulge with mild bilateralneuroforaminal narrowing and no canal stenosis. At the level of L2-L3, there are disc bulge with moderate bilateral neuroforaminal narrowing and moderate canal stenosis. At the level of L3-4, there are disc bulge with moderate right and severeleft neuroforaminal narrowing and moderate canal stenosis. There are Modic typeII changes at this level. At the level of L4-5, there are disc bulge with mild right and moderateleft neuroforaminal narrowing and moderate canal stenosis. At the level of L5-S1, there are disc bulge with mild right neuroforaminal narrowing and no canal stenosis. The paraspinal muscles are unremarkable. MR/MR lumbar spine wo con IMPRESSION: Moderate degenerative changes of lumbar spine in particular at L2-L3,L3-L4 and L4-L5. Electronically authenticated by: JAKE WEBSTER Date: 01/22/2024 14:44 Dictated By: Jake Webster M.D. Signed By:01/22/24 1446 DD/ 1444 TD/TT: Insurance Loss Adjuster: Generic External Data Provider [facility] Final Result documented in this encounter Visit Diagnoses Not on filedocumented in this encounter Additional Health Concerns Assessment Noted Time PHQ-9 Depression Total Score: 0 07/14/19 24 9:00 AM EDT documented as of this encounter Care Teams Senior Administrative Associate Relationship Specialty Start Date End Date Sven Peng MD [address] [facility] [address] [place] [address] PCP - [employer] 04/21/20 Sven Peng MD [address] [facility] [address] [place] [address] PCP - General Internal Medicine 08/27/22 documented as of this encounter
--- OUTSIDE RECORDS SUMMARY | 2024-09-20 09:18 | XMS_ITS | Encounter Summary ---
Author Organization [facility] Address [address] [place] [address] Care Team Providers Care Salary And Wage Administrator Name Role Phone Sven Peng MD Unavailable [phone] Sven Peng MD Primary Care Provider [phone] Encounter Details Date Type Department Care Team (Late st Contact Info) Description 2024 Clinisync Result Encounter [facility] External Department Unsolicited [...] [address] [place] [address] Joleen Chu PA [address] [place] [address] 10/07/2024 1:00 PM EDT Office Visit [facility] [address] [place] [phone] Say Schulte, TISSUE INSERTER [address] [facility], [place] [phone] 12/30/2024 11:00 AM EDT Office Visit [facility] [address] [place] [address] Teodora Guajardo DO [address] [place], [place] [phone] 04/12/2025 11:20 AM EST Office Visit [facility] [address] [place] [phone] nAnette Bright MD [address] [place], [place] [phone] documented as of this encounter Procedures Procedure Name Priority Date/Time Associated Diagnosis Comments XR DEXA AXIAL SKELETON 2024 4:38 AM EDT documented in this encounter Results * XR DEXA AXIAL SKELETON (2024 4:38 AM EDT) Anatomical Region Laterality Modality Other 2024 4:38 AM EDT Narrative 2024 4:40 AM EDT The [address] [address] XRay Report Signed Patient: TEODORA PATEL MR#: [id number] : 1950 Acct:[id number] Age/Sex: 73 / F ADM Date: 01/15/24 [facility]: TEODORA GUAJARDO Ordering Physician: TEODORA GUAJARDO Date of Service: 01/15/24 Procedure(s): XR DEXA axial skeleton Accession Number(s): [id number] cc: SVEN PENG ; TEODORA GUAJARDO [address] [address] Patient Name: TEODORA PATEL MRN: [id number] date: 1950 Sex: F Assigned Patient Location: [facility] Current Patient Location: Accession/Order Number: [id number] Exam Date: 01/15/2024 14:46 Report Date: 2024 04:38 At the request of: TEODORA GUAJARDO Procedure: XR DEXA axial skeleton EXAMINATION: XR DEXA axial skeleton HISTORY: Screening for osteoporosis, postmenopausal status, age relat COMPARISON: DEXA bone densitometry 12/07/2021 TECHNIQUE: Dual-energy X-ray absorptiometry (DXA) was performed. FINDINGS: SPINE ANALYSIS: Average bone mineral density is 1.001 g/cm2. T-score (standard deviation relative to young adult mean): -1.5 . Not previously evaluated. HIP ANALYSIS: Lowest bone mineral density is within the right femoral neck, 0.779 g/cm2. T-score (standard deviation relative to young adult mean): -1.9 . -5.7% change since prior study. XR/XR DEXA axial skeleton IMPRESSION: World Health Organization Classification: Osteopenia - Moderate Fracture Risk FRAX: Cannot be calculated. Pharmacologic treatment recommendations * No uniform recommendation applies to all patients. Management plans must be individualized. * Consider initiating pharmacologic treatment in postmenopausal women and men >= 50 years of age who have the following: Primary fracture prevention: * T-score <= - 2.5 at the femoral neck, total hip, lumbar spine, 33% radius (some uncertainty with existing data) by DXA. * Low bone mass (osteopenia: T-score between - 1.0 and - 2.5) at the femoral neck or total hip by DXA with a 10-year hip fracture risk >= 3% or a 10-year major osteoporosis-related fracture risk >= 20% (i.e., clinical vertebral, hip, forearm, or proximal humerus) based on the US-adapted FRAXregistered model. Secondary fracture prevention: * Fracture of the hip or vertebra regardless of BMD [4, 5]. * Fracture of proximal humerus, pelvis, or distal forearm in persons with low bone mass (osteopenia: T-score between - 1.0 and - 2.5). The decision to treat should be individualized in persons with a fracture of the proximal humerus, pelvis, or distal forearm who do not have osteopenia or low BMD [12, 13]. Gloria MS, Mela SL, Maddy KL, Mag EM, Fei KG, AJ, Duke ES. The clinician's guide to prevention and treatment of osteoporosis. Osteoporos Int. 2021;33(10):5794-0768. doi: 10.1007/j98397-607-49559-m. Epub 2021Aug 16. Erratum in: Osteoporos Int. 2021Nov 15;: PMID: 78477191; PMCID: KDP9271082. Electronically authenticated by: BRYAN SALGUERO Date: 2024 04:38 Dictated By: Bryan Salguero M.D. Signed By: 01/16/240 DD/ 0438 TD/TT: Rice Farmworker: Procedure Note Radiology, Radiologist, - 2024 [place] [address] XRay Report Signed Patient: TEODORA PATEL BMR#: [id number] : 8Acct:[id number] Age/Sex: 73 / FADM Date: 01/15/24 Loc: [facility] Attending Dr: TEODORA GUAJARDO Ordering Physician: TEODORA GUAJARDO Date of Service: 01/15/24 Procedure(s): XR DEXA axial skeleton Accession Number(s): [id number] cc: SVEN PENG ; TEODORA GUAJARDO The [address] [id number] Patient Name: TEODORA PATEL MRN: [id number] date: 1950 Sex: F Assigned Patient Location: [facility] Current Patient Location: Accession/Order Number: [id number] Exam Date: 01/15/2024 14:46 Report Date: 2024 04:38 At the request of: TEODORA GUAJARDO Procedure: XR DEXA axial skeleton EXAMINATION: XR DEXA axial skeleton HISTORY: Screening for osteoporosis, postmenopausal status, age relat COMPARISON: DEXA bone densitometry 12/07/2021 TECHNIQUE: Dual-energy X-ray absorptiometry (DXA) was performed. FINDINGS: SPINE ANALYSIS: Average bone mineral density is 1.001 g/cm2. T-score (standard deviation relative to young adult mean): -1.5 . Not previously evaluated. HIP ANALYSIS: Lowest bone mineral density is within the right femoral neck, 0.779 g/cm2. T-score (standard deviation relative to young adult mean): -1.9 . -5.7% change since prior study. XR/XR DEXA axial skeleton IMPRESSION: World Health Organization Classification: Osteopenia - Moderate FractureRisk FRAX: Cannot be calculated. Pharmacologic treatment recommendations * No uniform recommendation applies to all patients. Management plans mustbe individualized. * Consider initiating pharmacologic treatment in postmenopausal women andmen >= 50 years of age who have the following: Primary fracture prevention: * T-score <= - 2.5 at the femoral neck, total hip, lumbar spine, 33%radius (some uncertainty with existing data) by DXA. * Low bone mass (osteopenia: T-score between - 1.0 and - 2.5) at thefemoral neck or total hip by DXA with a 10-year hip fracture risk >= 3% or [id number] major osteoporosis-related fracture risk >= 20% (i.e., clinical vertebral, hip, forearm, or proximal humerus) based on the US-adapted FRAXregisteredmodel. Secondary fracture prevention: * Fracture of the hip or vertebra regardless of BMD [4, 5]. * Fracture of proximal humerus, pelvis, or distal forearm in persons withlow bone mass (osteopenia: T-score between - 1.0 and - 2.5). The decision totreat should be individualized in persons with a fracture of the proximalhumerus, pelvis, or distal forearm who do not have osteopenia or low BMD [12, 13]. Gloria MS, Mela SL, Maddy KL, Mag EM, Fei KG, AJ,Duke ES. The clinician's guide to prevention and treatment of osteoporosis.Osteoporos Int. 2021;33(10):8970-6370. doi: 10.1007/m73774-409-13534-w. Epub . Erratum in: Osteoporos Int. 2021Nov 15;: PMID: 58344214; PMCID: [id number]. Electronically authenticated by: BRYAN SALGUERO Date: 2024 04:38 Dictated By: Bryan Salguero M.D. Signed By:01/16/240 DD/ 7 TD/TT: Rice Farmworker: Generic External Data Provider [facility] Final Result documented in this encounter Visit Diagnoses Not on filedocumented in this encounter Additional Health Concerns Assessment Noted Time PHQ-9 Depression Total Score: 0 07/14/19 24 9:00 AM EDT documented as of this encounter Care Teams Salary And Wage Administrator Relationship Specialty Start Date End Date Sven Peng MD [address] [facility] [address] [place] [address] PCP - [employer] 04/21/20 Sven Peng MD [address] [facility] [address] [place] [address] PCP - General Internal Medicine 08/27/22 documented as of this encounter
--- OUTSIDE RECORDS SUMMARY | 2024-09-20 09:18 | XMS_ITS | Clinical Summary ---
Author Organization [employer] tem Address [id number] [address] [place] [address] Care Team Providers Care Marble Setter Helper Name Role Phone Sven Peng MD Primary Care Provider [phone] Allergies Active Allergy Reactions Criticality Noted Date Comments Hydrocodone 07/31/2018 Can take as needed, gets itching if takes as prescribed on hourly basis Oxycodone 07/31/2018 Itching, hives Sulfa (Sulfonamide Antibiotics) 07/31/2018 Itching, throat swelling, hives Medications calcium carbonate (OS-STEPHANIE) 600 mg (1,500 mg) tablet Take 1 tablet (600 mg total) by mouth in the morning and 1 tablet (600 mg total) in the evening. Take with meals. Active [id number]-[id number] A-calcium &mins (THERAGRAN-M) 9 mg iron-400 mcg tablet Take by mouth daily. Active coenzyme Q10 30 mg capsule Take 1 capsule (30 mg total) by mouth 3 (three) times a day. Active thiamine HCl (VITAMIN B-1) 100 mg tablet Take 1 tablet (100 mg total) by mouth in the morning. Active cholecalciferol , vitamin D3, 400 units tablet Take 1 tablet (400 Units total) by mouth in the morning. Active glucosamine-cho ndroitin 500-400 mg tablet Take 1 tablet by mouth 3 (three) times a day. Active magnesium oxide (MAG-OX) 400 mg tablet Take 1 tablet (400 mg total) by mouth in the morning. Active ferrous sulfate 325 (65 FE) mg tablet Take 1 tablet (325 mg total) by mouth daily with breakfast. Active melatonin tablet Take by mouth. Activ e VALERIAN ROOT ORAL Take by mouth. Activ e fluticasone (FLONASE) 50 mcg/actuation nasal spray Administer 1 spray into each nostril in the morning. Active cycloSPORINE (RESTASIS) 0.05 % ophthalmic emulsion 1 drop in the morning and 1 drop before bedtime. Active tolterodine LA (DETROL LA) 4 mg 24 hr capsule Take 1 capsule (4 mg total) by mouth in the morning. Active tiZANidine (ZANAFLEX) 4 mg tablet Take 1 tablet (4 mg total) by mouth every 6 (six) hours as needed for muscle spasms. Active irbesartan-hydr oCHLOROthiazide (AVALIDE) 150-12.5 mg per tablet Take 0.5 tablets by mouth in the morning. Active fexofenadine (ALEXX) 180 mg tablet Take 1 tablet (180 mg total) by mouth in the morning. Active acetaminophen (TYLENOL) 500 mg tablet Take 1 tablet (500 mg total) by mouth every 6 (six) hours as needed for pain. Active pantoprazole (PROTONIX) 40 mg EC tablet Take 1 tablet (40 mg total) by mouth in the morning. Active HYDROcodone-stanley taminophen (NORCO) 5-325 mg per tablet Take 1 tablet by mouth every 6 (six) hours as needed for pain. Only occasionally takes 1/2 tab Active metoprolol succinate XL (TOPROL XL) 25 mg 24 hr tablet Take 1 tablet (25 mg total) by mouth in the morning. 3 Active oxybutynin XL (DITROPAN-XL) 10 mg 24 hr tablet TAKE 1 TABLET BY MOUTH EVERY DAY FOR 90 DAYS 3 Active aspirin 81 mg chewable tablet Chew 1 tablet twice a day by oral route. Active irbesartan (AVAPRO) 75 mg tablet Take 1 tablet (75 mg total) by mouth nightly. Active PARoxetine (PAXIL) 20 mg tablet Take 1 tablet (20 mg total) by mouth. 3 Active tiZANidine (ZANAFLEX) 4 mg tablet Take 1 tablet (4 mg total) by mouth nightly. 90 tablet 3 Active Active Problems Problem Noted Date Diagnosed Date Bilateral lower extremity edema 11/10/2022 Decreased estrogen level 11/10/2022 Dry eye syndrome of bilateral lacrimal glands Herniated lumbar intervertebral disc 11/10/2022 History of colon resection 11/10/2022 Keratoconjunctivitis sicca, not specified as Sjogren's, bilateral 11/10/2022 Obesity (BMI 30.0-34.9) 11/10/2022 Osteoarthritis of spine with radiculopathy, lumb ar region 11/10/2022 Primary osteoarthritis of both knees 11/10/2022 Primary osteoarthritis of left hip 11/10/2022 Punctate keratitis of both eyes 11/10/2022 TIA (transient ischemic attack) 11/10/2022 Disorder of sacrum 06/25/2022 Overview (06/25/2022): Added automatically from request for surgery [id number] Disorder of sacrum 06/25/2022 Overview (01/02/2023): Added automatically from request for surgery [id number] Added automatically from request for surgery [id number] Intermittent palpitations 02/25/2022 Overview (01/02/2023): Last Assessment & Plan: Continue metoprolol Stable and pt without c/o palpitations Last Assessment & Plan: Continue metoprolol Stable and pt without c/o palpitations Left ventricular hypertrophy 09/24/2021 ETD (Eustachian tube dysfunction), right 021 Arthritis of right acromioclavicular joint 04/25 Internal derangement of right shoulder 0 History of artificial joint 10/20/2019 Gastroesophageal reflux disease 07/29/2018 Dyspepsia 07/13/2018 Impaired glucose tolerance 05/11/2018 Allergic rhinitis 04/04/2018 Lumbosacral spondylosis without myelopathy 04/04 Osteopenia 04/04/2018 Chronic tympanitis 03/10/2018 Bilateral sensorineural hearing loss 02/24/2018 Bilateral tinnitus 02/24/2018 Social History Tobacco Use Types Packs/Day Years Used Date Smoking Tobacco: Former Smokeless Tobacco: Never Comments:quit 2007 Alcohol Use Standard Drinks/Week Comments Yes 0 (1 standard drink = 0.6 oz pur e alcohol) occasional Childcare Answer Date Recorded Childcare Unknown 10/01/2018 Employment Answer Date Recorded Employment Unknown 10/01/2018 Hunger Screening Answer Date Recorded Within the past 12 months we worried whether our food would run out before we got money to buy more. Never True 12/24/2022 Within the past 12 months th e food we bought just didn't last and we didn't have money to get more. Never True 12/24/2022 Purpose - Life Answer Date Recorded Purpose and direction in life Unknown Comments No Sex and Gender Information Value Date Recorded Sex Assigned at Not on file Legal Sex Female 10:47 AM EDT Gender Identity Not on file Sexual Orientation Not on file Last Filed Vital Signs Vital Sign Reading Time Taken Comments Blood Pressure 128/75 01/10/2023 10:58 AM EDT Pulse 71 01/10/2023 10:58 AM EDT Temperature 36.3 C (97.3 F) 01/10/2023 10:21 AM EDT Respiratory Rate 20 01/10/2023 10:58 AM EDT Oxygen Saturation 96% 01/10/2023 10:58 AM EDT Inhaled Oxygen Concentration - - Weight 83 kg (183 lb) 12/24/2022 1:51 PM EDT Height 157.5 cm (5' 2 ) 12/24/2022 1:51 PM EDT Body Mass Index 33.47 12/24/2022 1:51 PM EDT Plan of Treatment Health Maintenance Due Date Last Done Comments Depression Screening 1962 Fall Risk Screening 01/15/2013 Zoster (Shingles) Vaccine (3 of 3) 08/01/2019 06/06/2019, 01/27/2002 COVID-19 Vaccine (3 2023-2 5 season) 2023 12/16/2020, 11/24/2020 Tobacco Screening 01/11/2024 01/10/2023 Influenza Vaccine 12/20/2024 02/05/2023, , 01/25/2021, Additional history exists DTaP,Tdap and Td Vaccines (2 - Tdap) 04/05/2032 04/05/2022 Medical Devices Implanted Type Area Windows Mobile Developer Device Identifier Shelf Expiration Date Model / Serial / Lot Left Hip Insurance [employer] Care Teams Marble Setter Helper Relationship Specialty Start Date End Date Sven Peng MD [address] [facility] [address] [place] [address] PCP - General Internal Medicine 07/31/18
--- OUTSIDE RECORDS SUMMARY | 2024-09-20 09:18 | XMS_ITS | Encounter Summary ---
Author Organization [facility] Address [address] [place] [address] Care Team Providers Care Payroll Machine Operator Name Role Phone Sven Peng MD Unavailable [phone] Sven Peng MD Primary Care Provider [phone] Encounter Details Date Type Department Care Team (Late st Contact Info) Description 01/13/2024 Clinisync Result Encounter [facility] External Department Unsolicited [...] [address] [place] [address] Joleen Chu PA [address] [place] [address] 10/07/2024 1:00 PM EDT Office Visit [facility] [address] [place] [phone] Say Schulte, TAPING SUPERVISOR [address] [facility], [place] [id number] 12/30/2024 11:00 AM EDT Office Visit [facility] [address] [place] [address] Teodora Chadwick DO [address] [place], [place] [address] 04/12/2025 11:20 AM EST Office Visit [facility] [address] [place] [phone] Annette Bright MD [address] [place], [place] [phone] documented as of this encounter Procedures Procedure Name Priority Date/Time Associated Diagnosis Comments NM EJ PERF SPECT REST STR 01/13/2024 4:30 PM EDT documented in this encounter Results * NM EJ PERF SPECT REST STR (01/13/2024 4:30 PM EDT) Anatomical Region Laterality Modality Other 01/13/2024 4:30 PM EDT Narrative 01/13/2024 4:30 PM EDT The [address] [address] Nuclear Medicine Report Signed Patient: TEODORA PATEL MR#: [id number] : 1950 Acct:[id number] Age/Sex: 73 / F ADM Date: 01/12/24 Loc: [place] Attending Dr: CHRIS GARCIA Ordering Physician: CHRIS GARCIA Date of Service: 01/12/24 Procedure(s): NM ej perf SPECT rest str Accession Number(s): [id number] cc: SVEN PENG ; CHRIS GARCIA Patient Name: TEODORA PATEL MR#: [id number] : 1950 Exam Date: 01/12/2024 Ordering Doctor: DR CHRIS GARCIA M.D. RADIOLOGY REPORT PROCEDURE: NM EJ PERF SPECT REST STR COMPARISON: None. INDICATIONS: SHORTNESS OF BREATH TECHNIQUE: Exam Description: Stress/Rest one day protocol gated SPECT Rest Imagin.9 mCi Tc-99m Cardiolite IV on 01/12/2024 Stress Imaging 31.8 mCi Tc-99m Cardiolite IV on 01/12/2024 Exercise Protocol: 0.4 mg Lexiscan given IV Heart Rate (bpm): Rest: 75 Max: 126 PMHR: 86 Blood Pressure: Rest: 142/82 Max: 168/80 Symptoms: Rest and peak stress ECG findings were normal and the exercise portion of the study was normal per attending physician Dr. De Los Santos . For more details please see separate cardiac stress test report. FINDINGS: QUALITY OF STUDY: Excellent. PERFUSION DEFECT: None. LOCATION: N/A SIZE: N/A. SEVERITY: N/A. TYPE: N/A. WALL MOTION: Normal. LV SIZE: Normal. 56 mL. TID / TCD: None; 0.8 LVEF: Normal. Calculated EF 92%. SUMMARY: Myocardial perfusion imaging study is NORMAL. CONCLUSION: 1. Normal nuclear medicine myocardial perfusion scan. Dictated by: Bryan Salguero M.D. on 01/13/2024 at 16:27 Approved by: Bryan Salguero M.D. on 01/13/2024 at 16:30 Dictated By: Bryan Salguero M.D. Signed By: 01/13/24 1630 DD/ 1630 TD/TT: Catia Designer: Procedure Note Radiology, Radiologist, MD - 01/13/2024 [place] [address] Nuclear Medicine Report Signed Patient: TEODORA PATEL BMR#: [id number] : 8Acct:[id number] Age/Sex: 73 / FADM Date: 01/12/24 Loc: [place] Attending Dr: CHRIS GARCIA Ordering Physician: CHRIS GARCIA Date of Service: 01/12/24 Procedure(s): NM ej perf SPECT rest str Accession Number(s): [id number] cc: SVEN PENG ; CHRIS GARCIA Patient Name: TEODORA PATEL MR#: [id number] : 1950 Exam Date: 01/12/2024 Ordering Doctor: DR CHRIS GARCIA M.D. RADIOLOGY REPORT PROCEDURE: NM EJ PERF SPECT REST STR COMPARISON: None. INDICATIONS: SHORTNESS OF BREATH TECHNIQUE: Exam Description: Stress/Rest one day protocol gated SPECT Rest Imagin.9 mCi Tc-99m Cardiolite IV on 01/12/2024 Stress Imaging 31.8 mCi Tc-99m Cardiolite IV on 01/12/2024 Exercise Protocol: 0.4 mg Lexiscan given IV Heart Rate (bpm): Rest: 75 Max: 126 PMHR: 86 Blood Pressure: Rest: 142/82 Max: 168/80 Symptoms: Rest and peak stress ECG findings were normal and the exercise portion ofthe study was normal per attending physician Dr. De Los Santos . For more details please see separate cardiac stress test report. FINDINGS: QUALITY OF STUDY: Excellent. PERFUSION DEFECT: None. LOCATION: N/A SIZE: N/A. SEVERITY: N/A. TYPE: N/A. WALL MOTION: Normal. LV SIZE: Normal. 56 mL. TID / TCD: None; 0.8 LVEF: Normal. Calculated EF 92%. SUMMARY: Myocardial perfusion imaging study is NORMAL. CONCLUSION: 1. Normal nuclear medicine myocardial perfusion scan. Dictated by: Bryan Salguero M.D. on 01/13/2024 at 16:27 Approved by: Bryan Salguero M.D. on 01/13/2024 at 16:30 Dictated By: Bryan Salguero M.D. Signed By:01/13/24 1630 DD/ 1630 TD/TT: Catia Designer: us Generic External Data Provider [facility] Final Result documented in this encounter Visit Diagnoses Not on filedocumented in this encounter Additional Health Concerns Assessment Noted Time PHQ-9 Depression Total Score: 0 07/14/19 24 9:00 AM EDT documented as of this encounter Care Teams Payroll Machine Operator Relationship Specialty Start Date End Date Sven Peng MD [address] [facility] 110 [place] [address] PCP - [employer] 04/21/20 Sven Peng MD [address] [facility] 110 [place] [address] PCP - General Internal Medicine 08/27/22 documented as of this encounter
--- OUTSIDE RECORDS SUMMARY | 2024-09-20 09:18 | XMS_ITS | Encounter Summary ---
Author Organization [facility] Address [address] [place] [address] Care Team Providers Care Glass Blower Helper Name Role Phone Sven Peng MD Unavailable [phone] Sven Peng MD Primary Care Provider [phone] Encounter Details Date Type Department Care Team (Late st Contact Info) Description 02/15/2024 Clinisync Result Encounter [facility] External Department Unsolicited [...] [address] [place] [address] Joleen Chu PA [address] [place] [address] 10/07/2024 1:00 PM EDT Office Visit [facility] [address] [place] [phone] Say Schulte, LATEX CASTER [address] [facility], [place] [phone] 12/30/2024 11:00 AM EDT Office Visit [facility] [address] [place] [address] Teodora Chadwick DO [address] [place], [place] [phone] 04/12/2025 11:20 AM EST Office Visit [facility] [address] [place] [address] Annette Bright MD [address] [place], [place] [phone] documented as of this encounter Procedures Procedure Name Priority Date/Time Associated Diagnosis Comments XR HIP 2 OR 3 VW RIGHT 02/15/2024 7:26 AM EDT documented in this encounter Results * XR hip right 2 or 3 views (02/15/2024 7:26 AM EDT) Anatomical Region Laterality Modality Lower Extremities, Hip Right Radiograp hic Imaging 02/15/2024 7:26 AM EDT Narrative 02/15/2024 7:28 AM EDT The [address] [address] XRay Report Signed Patient: ABIMBOLA,TEODORA B MR#: [id number] : 1950 Acct:[id number] Age/Sex: 74 / F ADM Date: 02/11/24 Loc: [facility] Attending Dr: Marion Landrum M.D. Ordering Physician: Marion Landrum M.D. Date of Service: 02/11/24 Procedure(s): XR hip RT min 2V Accession Number(s): [id number] cc: SVEN PENG ; Marion Landrum M.D. The [place] [address] Patient Name: TEODORA PATEL MRN: [id number] date: 1950 Sex: F Assigned Patient Location: [facility] Current Patient Location: Accession/Order Number: [id number] Exam Date: 02/11/2024 12:25 Report Date: 02/15/2024 07:26 At the request of: MARION LANDRUM Procedure: XR hip RT min 2V PROCEDURE: XR hip RT min 2V HISTORY: Right Hip Pain COMPARISON: None. FINDINGS: BONES:Moderate narrowing of the superior aspect of the hip joint space and degenerative osteophytes along the superior and posterior rim of the acetabulum and small osteophytes along the margin of the femoral head. No fracture or dislocation. SOFT TISSUES:No visible soft tissue swelling. EFFUSION:None visible. OTHER: Negative. XR/XR hip RT min 2V IMPRESSION: 1. No acute bone abnormality. 2. Moderate degenerative joint disease of the right hip. Electronically authenticated by: BRYAN SALGUERO Date: 02/15/2024 07:26 Dictated By: Bryan Salguero M.D. Signed By: 02/15/24727 DD/ 5 TD/TT: Nail Tech: Procedure Note Radiology, Radiologist, - 02/15/2024 [place] [address] XRay Report Signed Patient: TEODORA PATEL BMR#: [id number] : 1950cct:[id number] Age/Sex: 74 / FADM Date: 02/11/24 Loc: RAD Attending Dr: Marion Landrum M.D. Ordering Physician: Marion Landrum M.D. Date of Service: 02/11/24 Procedure(s): XR hip RT min 2V Accession Number(s): [id number] cc: SVEN PENG ; Marion Landrum M.D. [place] [address] Patient Name: TEODORA PATEL MRN: [id number] date: 1950 Sex: F Assigned Patient Location: [facility] Current Patient Location: Accession/Order Number: [id number] Exam Date: 02/11/2024 12:25 Report Date: 02/15/2024 07:26 At the request of: MARION LANDRUM Procedure: XR hip RT min 2V PROCEDURE: XR hip RT min 2V HISTORY: Right Hip Pain COMPARISON: None. FINDINGS: BONES:Moderate narrowing of the superior aspect of the hip joint space and degenerative osteophytes along the superior and posterior rim of the acetabulum and small osteophytes along the margin of the femoral head. No fracture or dislocation. SOFT TISSUES:No visible soft tissue swelling. EFFUSION:None visible. OTHER: Negative. XR/XR hip RT min 2V IMPRESSION: 1. No acute bone abnormality. 2. Moderate degenerative joint disease of the right hip. Electronically authenticated by: BRYAN SALGUERO Date: 02/15/2024 07:26 Dictated By: Bryan Salguero M.D. Signed By:02/15/24727 DD/ 5 TD/TT: Nail Tech: us Generic External Data Provider IMG XR PROCEDURES Final Result documented in this encounter Visit Diagnoses Not on filedocumented in this encounter Additional Health Concerns Assessment Noted Time PHQ-9 Depression Total Score: 0 07/14/19 24 9:00 AM EDT documented as of this encounter Care Teams Glass Blower Helper Relationship Specialty Start Date End Date Sven Peng MD [address] [facility] 110 [place] [address] PCP - [employer] 04/21/20 Sven Peng MD [address] [facility] 110 [place] [address] PCP - General Internal Medicine 08/27/22 documented as of this encounter
--- OUTSIDE RECORDS SUMMARY | 2024-09-20 09:18 | XMS_ITS | Encounter Summary ---
Author Organization [facility] Address [address] [facility] [place] [address] Care Team Providers Care Bacteriologist Soil Name Role Phone Sven Peng MD Unavailable Sven Peng MD Primary Care Provider [phone] Encounter Details Date Type Department Care Team (Late st Contact Info) Description 01/29/2024 Abstract [facility] [address] [facility] 110 [place] [address] Sven Peng MD 112 [facility] 110 [place] [address] Social History Tobacco Use Types [...] [address] [place] [address] Joleen Chu PA [address] [place] [address] 10/07/2024 1:00 PM EDT Office Visit [facility] [address] [place] [phone] Say Schulte, STITCH SEPARATOR [address] [place] [address] 12/30/2024 11:00 AM EDT Office Visit [facility] [address] [place] [address] Teodora Chadwick DO [address] [place], [place] [phone] 04/12/2025 11:20 AM EST Office Visit [facility] [address] [place] [address] Annette Bright MD [address] [place], [place] [phone] documented as of this encounter Visit Diagnoses Not on filedocumented in this encounter Additional Health Concerns Assessment Noted Time PHQ-9 Depression Total Score: 0 07/14/19 24 9:00 AM EDT documented as of this encounter Care Teams Bacteriologist Soil Relationship Specialty Start Date End Date Sven Peng MD [address] [facility] 110 [place] [address] PCP - [employer] 04/21/20 Sven Peng MD 112 [facility] 110 [place] [address] PCP - General Internal Medicine 08/27/22 documented as of this encounter
--- OUTSIDE RECORDS SUMMARY | 2024-09-20 09:18 | XMS_ITS | Encounter Summary ---
Author Organization [facility] Address [address] [facility] [place] [address] Care Team Providers Care Manager Mutual Fund Name Role Phone Sven Peng MD Unavailable [phone] Sven Peng MD Primary Care Provider [phone] Encounter Details Date Type Department Care Team (Late st Contact Info) Description 11/12/2022 Abstract [facility] [address] [facility] 110 [place] [address] Sven Peng MD 112 [facility] 110 [place], [place] [phone] Social History Tobacco Use Types Packs/Day Years Used Date Smoking Tobacco: Former Cigarettes Q uit: 04/21/2007 Smokeless Tobacco: Never Alcohol Use Standard Drinks/Week Comments Yes 2 (1 standard drink = 0.6 oz pure alcohol) Caffeine intake: 2-3 cups per day PHQ-2 Answer Date Recorded Patient Health Questionnaire-2 [...] [address] [place] [address] Joleen Chu PA [address] [place] [address] 10/07/2024 1:00 PM EDT Office Visit [facility] [address] [place] [phone] Say Schulte, FLOWER SHOP LABORER/DESIGNER [address] [place] [address] 12/30/2024 11:00 AM EDT Office Visit [facility] [address] [place] [phone] Teodora Chadwick DO [address] [place], [place] [phone] 04/12/2025 11:20 AM EST Office Visit [facility] [address] [place] [address] Annette Bright MD [address] [place], [place] [phone] documented as of this encounter Visit Diagnoses Not on filedocumented in this encounter Additional Health Concerns Assessment Noted Time PHQ-9 Depression Total Score: 7 11/12/19 23 11:00 AM EDT documented as of this encounter Care Teams Manager Mutual Fund Relationship Specialty Start Date End Date Sven Peng MD [address] [place] [address] PCP - [employer] 04/21/20 Sven Peng MD [address] [place] [address] PCP - General Internal Medicine 08/27/22 documented as of this encounter
--- OUTSIDE RECORDS SUMMARY | 2024-09-20 09:18 | XMS_ITS | Encounter Summary ---
Author Organization [facility] Address [address] [place] [address] Care Team Providers Care Die Baker Name Role Phone Sven Peng MD Unavailable Sven Peng MD Primary Care Provider [phone] Encounter Details Date Type Department Care Team (Late st Contact Info) Description 07/27/2024 Abstract [facility] [address] [facility] 110 [place] [address] Sven Peng MD 112 [facility] 110 [place] [address] Social History Tobacco Use Types [...] often do you attend chur ch or faith services? Never 07/21/2024 Do you belong to any clubs o r organizations such as congregational groups, unions, fraternal or athletic groups, or [...] Recorded Patient Health Questionnaire-2 Score 0 07/27/2024 [facility] - [...] any time in the past 12 m [facility], were you homeless or living in a longterm (including now)? No 07/21/2024 Comments Unknown Sex [...] Visit [facility] [address] [facility] 110 [place] [phone] Joleen Chu PA [address] [place] [address] 10/07/2024 1:00 PM EDT Office Visit [facility] [address] [place] [phone] Say Schulte, EDGER AUTOMATIC [address] [place], [place] [phone] 12/30/2024 11:00 AM EDT Office Visit [facility] [address] [place] [address] Teodora Chadwick DO [address] [place] [address] 04/12/2025 11:20 AM EST Office Visit [facility] [...] documented as of this encounter Care Teams Die Baker Relationship Specialty Start Date End Date Sven Peng MD [address] [place] [address] PCP - [employer] 04/21/20 Sven Peng MD [address] [place] [address] PCP - General Internal Medicine 08/27/22 documented as of this encounter
[2024-09-20 10:04] VITALS: BP 130/74; PULSE 70; TEMP 36.3; O2SAT 94
[2024-09-20] MEDS: 0.9 % SODIUM CHLORIDE 10 ML SYRINGE - SALINE FLUSH INJ (10:32)
[2024-09-20] MEDS: BUPIVACAINE HCL 0.25% PF 25 MG/10 ML VIAL INJ (10:32)
[2024-09-20] MEDS: LIDOCAINE HCL 2% 400 MG/20 ML MDV INJ (10:33)
[2024-09-20] MEDS: IOHEXOL 240 MG/ML - 10 ML VIAL 24 MG INJ (10:33)
[2024-09-20] MEDS: METHYLPREDNISOLONE ACETATE 80 MG/ML VIAL INJ (10:33)
--- NOTE | 2024-09-20 10:34 | W.PM.PROCNOT ---
Date of procedure: 09/20/24 Pre-op diagnosis: Pain due to lumbar stenosis with neurogenic claudication Post-op diagnosis: same as pre-op Procedure: Procedure: Bilateral L4-5 transforaminal epidural steroid injection Medications: Bupivacaine 0.25% 2cc, lidocaine 2% 1cc, depomedrol 80mg The patient was seen and examined in the preoperative holding area.? Informed consent was obtained and placed on the chart.? Patient was brought to the medical procedure unit and placed in the prone position where a timeout was completed verifying the correct patient, procedure site, position, and planned special equipment using sterile aseptic technique.? Under direct fluoroscopic visualization a 25-gauge Quincke tipped spinal needle was advanced at level left L4-5 to the designated neural foramen where contrast dye was injected to show adequate spread.? There was no evidence of vascular or adverse uptake.? Epidural spread was appreciated.? The above-mentioned injectate was then placed in a 1.5 mL aliquot preceded by negative aspiration.? The needle was removed. The same procedure, at the same level, was completed on the opposite side. ? Patient was taken to the postprocedural recovery area and monitored for an appropriate length of time before found suitable for discharge in the accompaniment of a responsible adult. Anesthesia: Local Surgeon: Lala Vega Pathology: none sent Condition: stable Disposition: no change
[2024-09-21 09:56] VITALS: BP 174/84; BP 183/84; PULSE 66; PULSE 70; O2SAT 91; O2SAT 92
== END 2024-09-20 10:41 | disposition home or self-care (01) ==
LOC: SURGOUT 09:14
PROVIDERS: PCP Internal Medicine; Visit Provider Anesthesiology
DX: M54.50 Low back pain, unspecified (principal); M48.062 Spinal stenosis, lumbar region with neurogenic claudication
CPT/HCPCS: 64483; J0665; J1010; Q9966

== ENCOUNTER 2024-09-30 12:27 | Outpatient (OUT) | payer MEDICARE, SELFPAY ==
--- OUTSIDE RECORDS SUMMARY | 2024-09-28 13:00 | XMS_ITS | Encounter Summary ---
Author Organization [facility] Address [address] [place] [address] Care Team Providers Care Elder Assistant Name Role Phone Sven Peng MD Unavailable [phone] Sven Peng MD Primary Care Provider [phone] Reason for Visit * Reason Comments Medicare Annual Wellness Visit Subsequen t Encounter Details Date Type Department Care Team (Late st Contact Info) Description 09/28/2024 1:00 PM EDT Office Visit [facility] [address] [facility] [address] [place] [phone] Joleen Chu PA 112 [facility] [address] [place] [address] Medicare annual wellness visit, subsequent (Primary Dx); ACP (advance care planning); Pulmonary hypertension, unspecified (HCC); Weight gain; Seasonal allergic rhinitis due to pollen; Arthritis of right acromioclavicular joint; Bilateral lower extremity edema; Bilateral tinnitus; Chronic myringitis, unspecified laterality; Decreased estrogen level; Disorder of sacrum; Dry eye syndrome of bilateral lacrimal glands; ETD (Eustachian tube dysfunction), right; Former smoker; Herniated lumbar intervertebral disc; History of colon resection; Impaired glucose tolerance; Intermittent palpitations; Obstructive hypertrophic cardiomyopathy (HCC); Lumbosacral spondylosis without myelopathy; Obesity (BMI 30.0-34.9); Osteopenia of multiple sites; Overactive bladder; Primary hypertension ; Osteoarthritis of spine with radiculopathy, lumbar region; Primary osteoarthritis of both knees; Primary osteoarthritis of left hip; Punctate keratitis of both eyes; Sensorineural hearing loss, bilateral; Multiple perforations of right tympanic membrane; Left ventricular hypertrophy; History of TIA (transient ischemic attack); History of left hip replacement; Family history of heart disease; SCHOFIELD (dyspnea on exertion) Social History Tobacco Use Types Packs/Day Years [...] often do you attend chur ch or pentecostal services? Never 07/21/2024 Do you belong to any clubs o r organizations such as taoist groups, unions, fraternal or athletic groups, or [...] Date Recorded Patient Health Questionnaire-2 Score 0 09/28/2024 [facility] - Occupational Stress Questionnaire Answer Date Recorded [...] any time in the past 12 [facility], were you homeless or living in a nursing home (including now)? No 07/21/2024 Comments Unknown Sex and Gender Information Value Date Recorded Sex Assigned at Female 09/06/2022 3:19 PM EDT Legal Sex Female 8:26 PM EDT Gender Identity Female 09/06/2022 3:19 PM EDT Sexual Orientation Straight 09/06/2022 3: 19 PM EDT documented as of this encounter Last Filed Vital Signs Vital Sign Reading Time Taken Comments Blood Pressure 128/64 09/28/2024 1:11 PM EDT Pulse 64 09/28/2024 1:11 PM EDT Temperature - - Respiratory Rate 16 09/28/2024 1:11 PM EDT Oxygen Saturation 93% 09/28/2024 1:11 PM EDT Inhaled Oxygen Concentration - - Weight 92.8 kg (204 lb 9.6 oz) 09/28/2024 1:11 P M EDT Height 158.8 cm (5' 2.5 ) 09/28/2024 1:11 PM EDT Body Mass Index 36.83 09/28/2024 1:11 PM EDT documented in this encounter Functional Status * Over the past 2 weeks, how often have you been bothered by any of the following problems? Question Answer Date of Assessment Author Little interest or pleasure in doing things Not at all 09/28/2024 12:00 PM EDT Katheryn Smith L PN Feeling down, depressed, or hopeless Not at all 09/28/2024 12:00 PM EDT Katheryn Smith L PN Patient Health Questionnaire -2 Score 0 09/28/2024 12:00 PM EDT Katheryn Smith L PN * Question Answer Date of Assessment Author Trouble falling or staying asleep, or sleeping too much Not at all 09/28/2024 12:00 PM EDT Joel Smith LPN Feeling tired or having kavon le energy Not at all 09/28/2024 12:00 PM EDT Katheryn Smith L PN Poor appetite or overeating Not at all 09/28/2024 12 :00 PM EDT Katheryn Smith LPN Feeling bad about yourself - or that you are a failure or have let yourself or your family down Not at all 09/28/2024 12:00 PM EDT Katheryn Smith L PN Trouble concentrating on things, such as reading the newspaper or watching television Not at all 09/28/2024 12:00 PM EDT Katheryn Smith L PN Moving or speaking so slowly that other people could have noticed? Or the opposite - being so fidgety or restless that you have been moving around a lot more than usual. Not at all 09/28/2024 12:00 PM EDT Katheryn Smith LPN Thoughts that you would be better off or hurting yourself in some way Not at all 09/28/2024 12:00 PM LYNNT Katheryn Smith LPN Patient Health Questionnaire -9 Score 0 09/28/2024 12:00 PM EDT Katheryn Smith L PN documented as of this encounter Progress Notes * THUY Brown - 09/28/2024 1:00 PM EDT Images from the original note were not included. Subjective Patient ID: Teodora Daily is a 74 y.o. female who presents for Medicare Annual Wellness Visit Subsequent. HPI Medicare Wellness Over the past 2 weeks, how often have you been bothered by any of the following problems? Little interest or pleasure in doing things: Not at all (currently on medication) Feeling down, depressed, or hopeless: Not at all (currently on medication) Patient Health Questionnaire-2 Score: 0 Over the past 2 weeks, how often have you been bothered by any of the following problems? Trouble falling or staying asleep, or sleeping too much: Not at all Feeling tired or having little energy: Not at all Poor appetite or overeating: Not at all Feeling bad about yourself - or that you are a failure or have let yourself or your family down: Not at all Trouble concentrating on things, such as reading the newspaper or watching television: Not at all Moving or speaking so slowly that other people could have noticed? Or the opposite - being so fidgety or restless that you have been moving around a lot more than usual.: Not at all Thoughts that you would be better off or hurting yourself in some way: Not at all Patient Health Questionnaire-9 Score: 0 Curtis Fall Risk History of Falling, Immediate or Within 3 Months: No Health Risk Assessment Form Do you need help eating, bathing, using the toilet, dressing, or getting around your home?: No Can you prepare your own meals?: Yes Can you do your own housework without help?: Yes Can you shop for groceries or clothes without help?: Yes Do you exercise for about 20 minutes 3 or more days a week?: No How confident are you that you can control and manage most of your health problems?: Very confident Can you mange your money, credit cards and accounts, pay bills and taxes?: Yes Vision Screening: Yes, no gross abnormalities Hearing Screening: Yes, no gross abnormalities Cognitive Screening Self Assessment: No overt cognitive deficiency is apparent by direct observation Three Word Registration: Village, Kitchen, Baby Clock Drawing: Normal Clock - 2 Three Word Recall: All 3 words correct - 3 Total Score (0-5 Points): 5 Pain Assessment Pain Score: 4 Advance Care Planning Do you have a living will?: Yes Do you have a medical power of securities attorney?: Yes Current Outpatient Medications on File Prior to Visit Medication Sig Dispense Refill Ascorbic Acid (Vitamin C) 500 MG capsule Take by mouth aspirin 81 MG chewable tablet Chew 1 tablet twice a day by oral route. baclofen (Lioresal) 10 MG tablet TAKE 1/2 TO 1 TABLET BY MOUTH TWICE A DAY NEEDED cyanocobalamin (Vitamin B-12) 100 MCG tablet Vitamin B12 fluticasone (Flonase) 50 MCG/ACT nasal spray Administer 1 spray into each nostril Daily Shake gently. Before first use, prime pump. After use, clean tip and replace cap. irbesartan (Avapro) 150 MG tablet TAKE 1 TABLET BY MOUTH EVERY DAY FOR 100 DAYS 90 tablet 4 LORazepam (Ativan) 0.5 MG tablet Take 1 tablet (0.5 mg) by mouth every 6 (six) hours if needed for anxiety for up to 14 days 28 tablet 0 metoprolol succinate XL (Toprol-XL) 25 MG 24 hr tablet Take 1.5 tablets by mouth Daily Dosing per Cardiology Multiple Vitamins-Minerals (Centrum Silver) chewable tablet every 12 (twelve) hours. nystatin (Mycostatin) 884358 UNIT/GM powder Apply to the affected area, once daily, 30 day supply 60 g 11 PARoxetine (Paxil) 20 MG tablet TAKE 1 TABLET BY MOUTH EVERY DAY IN THE MORNING 100 tablet 3 No current facility-administered medications on file prior to visit. I have reviewed and reconciled the history and medication list with the patient today. Allergies Allergen Reactions Sulfa Antibiotics Anaphylaxis, Hives, Itching, Rash, Shortness of breath and Swelling Other Reaction(s): hives, swelling Itching, throat swelling, hives Hydrocodone Hives Can take as needed, gets itching if takes as prescribed on hourly basis Oxycodone Hives, Itching and Rash Other Reaction(s): itching, hives Itching, hives Social History Tobacco Use Smoking status: Former Current packs/day: 0.00 Average packs/day: 1 pack/day for 40.4 years (40.4 ttl pk-yrs) Types: Cigarettes Start date: 11/19/1966 Quit date: 04/21/2007 Years since quittin.4 Smokeless tobacco: Never Vaping Use Vaping status: [...] COLONOSCOPY 2013 FOOT SURGERY multiple foot sx, [id number] HYSTERECTOMY 1998 IR ABLATION BONE 12/15/2018 LT RFA T12-L3 IR INJECTION NERVE BLOCK 04/09/2018 L2-L5 nerve blocks IR INJECTION NERVE BLOCK Left 07/21/2018 T12-L3 nerve blocks LUMBAR EPIDURAL INJECTION 04/03/2021 OTHER SURGICAL HISTORY 1985 T Tube, [place] IN PARTIAL HIP REPLACEMENT 08/2018 TOE SURGERY TONSILLECTOMY TOTAL HIP ARTHROPLASTY Left 09/07/2018 Dr Neves TYMPANOSTOMY TUBE PLACEMENT Right 04/01/24 Dr Hunter Visit Vitals BP 128/64 Pulse 64 Resp 16 Ht 5' 2.5 Wt 204 lb 9.6 oz SpO2 93% BMI 36.83 kg/m?? Smoking Status Former BSA 2.02 m?? Review of Systems Constitutional: Positive for unexpected weight change (Gain). Negative for chills, fatigue and fever. HENT: Negative for congestion, ear pain, rhinorrhea and sore throat. Eyes: Negative for pain, discharge and visual disturbance. Respiratory: Negative for cough, shortness of breath and wheezing. Cardiovascular: Negative for chest pain, palpitations and leg swelling. Gastrointestinal: Negative for abdominal pain, constipation, diarrhea, nausea and vomiting. Genitourinary: Negative for difficulty urinating, dysuria and frequency. Musculoskeletal: Positive for arthralgias and back pain. Skin: Negative for rash. Neurological: Negative for dizziness and numbness. Psychiatric/Behavioral: Negative for sleep disturbance. The patient is not nervous/anxious. Objective Physical Exam Constitutional: General: She is not in acute distress. Appearance: She is well-developed. She is obese. HENT: Head: Normocephalic and atraumatic. Right Ear: Tympanic membrane and ear canal normal. Left Ear: Tympanic membrane and ear canal normal. Nose: Nose normal. Mouth/Throat: Mouth: Mucous membranes are moist. Pharynx: No posterior oropharyngeal erythema. Eyes: General: No scleral icterus. Extraocular Movements: Extraocular movements intact. Conjunctiva/sclera: Conjunctivae normal. Pupils: Pupils are equal, round, and reactive to light. Neck: Vascular: No carotid bruit. Cardiovascular: Rate and Rhythm: Normal rate and regular rhythm. Heart sounds: Normal heart sounds. No murmur heard. Pulmonary: Effort: Pulmonary effort is normal. No respiratory distress. Breath sounds: Normal breath sounds. No wheezing, rhonchi or rales. Abdominal: General: Bowel sounds are normal. There is no distension. Palpations: Abdomen is soft. Tenderness: There is no abdominal tenderness. There is no guarding. Musculoskeletal: General: No swelling or deformity. Cervical back: Normal range of motion and neck supple. No tenderness. Lumbar back: Bony tenderness present. Negative right straight leg raise test and negative left straight leg raise test. Left knee: Decreased range of motion. Tenderness present. Skin: General: Skin is warm and dry. Capillary Refill: Capillary refill takes less than 2 seconds. Findings: No rash. Neurological: General: No focal deficit present. Mental Status: She is alert and oriented to person, place, and time. Cranial Nerves: No cranial nerve deficit. Sensory: No sensory deficit. Motor: No weakness. Gait: Gait normal. Deep Tendon Reflexes: Reflexes normal. Psychiatric: Mood and Affect: Mood normal. Behavior: Behavior normal. Thought Content: Thought content normal. Judgment: Judgment normal. Assessment & Plan 1. Medicare annual wellness visit, subsequent (Primary) Reviewed all relevant preventative screenings with the patient in detail. Medicare Wellness form completed and will be scanned into patient's chart. All needed testing was ordered. Will continue withyearly Medicare Wellness exams. - Lipid panel - TSH W/REFLEX TO FT4 2. ACP (advance care planning) Patient willing to discuss ACP. Pt has Living Will and DPOA in place. 3. Pulmonary hypertension, unspecified (CMS/HCC) The patient is seeing a senior medical director for this condition, treatment is deferred to that specialist. Correspondence from that specialist and any available testing were reviewed during today's visit. 4. Weight gain Will check TSH with upcoming labs. Encouraged portion control, decrease simple sugars and carbohydrates, gradually increase activity level. Aim for gradual steady weight loss. - TSH W/REFLEX TO FT4 5. Seasonal allergic rhinitis due to pollen This is a chronic medical condition that is stable since last assessment. No changes in treatment are suggested at this time. Continue Flonase. 6. Arthritis of right acromioclavicular joint The patient is seeing a senior medical director for this condition, treatment is deferred to that specialist. Correspondence from that specialist and any available testing were reviewed during today's visit. 7. Bilateral lower extremity edema This is a chronic medical condition that is stable since last assessment. Elevate legs when needed.No diuretic at this time. 8. Bilateral tinnitus The patient is seeing a senior medical director for this condition, treatment is deferred to that specialist. Correspondence from that specialist and any available testing were reviewed during today's visit. 9. Chronic myringitis, unspecified laterality The patient is seeing a senior medical director for this condition, treatment is deferred to that specialist. Correspondence from that specialist and any available testing were reviewed during today's visit. 10. Decreased estrogen level This is a chronic medical condition that is stable since last assessment. Will continue to monitor with routine preventative screenings. 11. Disorder of sacrum The patient is seeing a senior medical director for this condition, treatment is deferred to that specialist. Correspondence from that specialist and any available testing were reviewed during today's visit. 12. Dry eye syndrome of bilateral lacrimal glands The patient is seeing a senior medical director for this condition, treatment is deferred to that specialist. Correspondence from that specialist and any available testing were reviewed during today's visit. 13. ETD (Eustachian tube dysfunction), right The patient is seeing a senior medical director for this condition, treatment is deferred to that specialist. Correspondence from that specialist and any available testing were reviewed during today's visit. 14. Former smoker The patient was counseled on the importance of maintaining cigarette smoking abstinence. The patient continues to refrain from smoking and is committed to avoiding tobacco use. 15. Herniated lumbar intervertebral disc The patient is seeing a senior medical director for this condition, treatment is deferred to that specialist. Correspondence from that specialist and any available testing were reviewed during today's visit. 16. History of colon resection This is a chronic medical condition that is stable since last assessment. No concerns related to this at this time. 17. Impaired glucose tolerance This is a chronic medical condition that is stable since last assessment. Will continue to monitor with routine labs. 18. Intermittent palpitations The patient is seeing a senior medical director for this condition, treatment is deferred to that specialist. Correspondence from that specialist and any available testing were reviewed during today's visit. 19. Obstructive hypertrophic cardiomyopathy (CMS/HCC) The patient is seeing a senior medical director for this condition, treatment is deferred to that specialist. Correspondence from that specialist and any available testing were reviewed during today's visit. 20. Lumbosacral spondylosis without myelopathy The patient is seeing a senior medical director for this condition, treatment is deferred to that specialist. Correspondence from that specialist and any available testing were reviewed during today's visit. 21. Obesity (BMI 30.0-34.9) Encouraged portion control, decrease simple sugars and carbohydrates, gradually increase activity level. Aim for gradual steady weight loss. 22. Osteopenia of multiple sites This is a chronic medical condition that is stable since last assessment. Will continue to monitor with routine screenings. 23. Overactive bladder This is a chronic medical condition that is stable since last assessment. No complaints at this time. 24. Primary hypertension (CMS/HCC) Patient's blood pressure is currently well controlled. Continue with current medications and I willcontinue to monitor. Goal BP remains less than 130/80. - Lipid panel 25. Osteoarthritis of spine with radiculopathy, lumbar region The patient is seeing a senior medical director for this condition, treatment is deferred to that specialist. Correspondence from that specialist and any available testing were reviewed during today's visit. 26. Primary osteoarthritis of both knees The patient is seeing a senior medical director for this condition, treatment is deferred to that specialist. Correspondence from that specialist and any available testing were reviewed during today's visit. 27. Primary osteoarthritis of left hip The patient is seeing a senior medical director for this condition, treatment is deferred to that specialist. Correspondence from that specialist and any available testing were reviewed during today's visit. 28. Punctate keratitis of both eyes The patient is seeing a senior medical director for this condition, treatment is deferred to that specialist. Correspondence from that specialist and any available testing were reviewed during today's visit. 29. Sensorineural hearing loss, bilateral The patient is seeing a senior medical director for this condition, treatment is deferred to that specialist. Correspondence from that specialist and any available testing were reviewed during today's visit. 30. Multiple perforations of right tympanic membrane The patient is seeing a senior medical director for this condition, treatment is deferred to that specialist. Correspondence from that specialist and any available testing were reviewed during today's visit. 31. Left ventricular hypertrophy The patient is seeing a senior medical director for this condition, treatment is deferred to that specialist. Correspondence from that specialist and any available testing were reviewed during today's visit. 32. History of TIA (transient ischemic attack) The patient is seeing a senior medical director for this condition, treatment is deferred to that specialist. Correspondence from that specialist and any available testing were reviewed during today's visit. History of TIA was one remote isolated incident. 33. History of left hip replacement The patient is seeing a senior medical director for this condition, treatment is deferred to that specialist. Correspondence from that specialist and any available testing were reviewed during today's visit. 34. Family history of heart disease The patient is seeing a senior medical director for this condition, treatment is deferred to that specialist. Correspondence from that specialist and any available testing were reviewed during today's visit. 35. SCHOFIELD (dyspnea on exertion) The patient is seeing a senior medical director for this condition, treatment is deferred to that specialist. Correspondence from that specialist and any available testing were reviewed during today's visit. Follow up for Knee Pain and Weight Loss. Joleen GRIFFIN, NELC documented in this encounter Plan of Treatment Upcoming Encounters Date Type Department Care Team (Late st Contact Info) Description 10/07/2024 1:00 PM EDT [facility] Visit [facility] [address] [facility] [place] [phone] Say Schulte, PHOTOGRAPH PRINTER [address] [place] [address] 10/15/2024 8:30 AM EDT Office Visit [facility] [address] [place] [phone] Joleen Chu PA [address] [place] [address] 12/30/2024 11:00 AM EDT Office Visit [facility] [address] [place] [phone] Teodora Chadwick DO [address] [place] [address] 04/12/2025 11:20 AM EST Office Visit [facility] [address] [place] [phone] Annette Bright MD [address] [place] [address] Scheduled Orders Name Type Priority Associated Diagnoses Orde r Schedule Lipid panel Lab Routine Medicare annual wellness visit, subsequent Primary hypertension Ordered: 09/28/2024 TSH W/REFLEX TO FT4 Lab Routine Medicare annual wellness visit, subsequent Weight gain Ordered: 09/28/2024 documented as of this encounter Visit Diagnoses Diagnosis Medicare annual wellness visit, subsequent- Primary ACP (advance care planning) Other specified counseling Pulmonary hypertension, unspecified (HCC) Weight gain Other symptoms concerning nutrition, metabolism, and development Seasonal allergic rhinitis due to pollen Arthritis of right acromioclavicular joint Bilateral lower extremity edema Bilateral tinnitus Chronic myringitis, unspecified laterality Decreased estrogen level Disorder of sacrum Disorders of sacrum Dry eye syndrome of bilateral lacrimal glands ETD (Eustachian tube dysfunction), right Former smoker Personal history of tobacco use, presenting hazards to health Herniated lumbar intervertebral disc Displacement of lumbar intervertebral disc without myelopathy History of colon resection Other postprocedural status Impaired glucose tolerance Impaired glucose tolerance test Intermittent palpitations Obstructive hypertrophic cardiomyopathy (HCC) Lumbosacral spondylosis without myelopathy Obesity (BMI 30.0-34.9) Osteopenia of multiple sites Overactive bladder Hypertonicity of bladder Primary hypertension Unspecified essential hypertension Osteoarthritis of spine with radiculopathy, lumbar region Primary osteoarthritis of both knees Primary osteoarthritis of left hip Punctate keratitis of both eyes Sensorineural hearing loss, bilateral Multiple perforations of right tympanic membrane Left ventricular hypertrophy Cardiomegaly History of TIA (transient ischemic attack) History of left hip replacement Family history of heart disease SCHOFIELD (dyspnea on exertion) Other dyspnea and respiratory abnormality Left hip pain Pain in joint, pelvic region and thigh documented in this encounter Additional Health Concerns Assessment Noted Time PHQ-9 Depression Total Score: 0 09/29/19 25 12:00 PM EDT documented as of this encounter Care Teams Elder Assistant Relationship Specialty Start Date End Date Sven Peng MD [address] [address] PCP - [employer] 04/21/20 Sven Peng MD 112 [place] [address] [address] PCP - General Internal Medicine 08/27/22 documented as of this encounter
--- OUTSIDE RECORDS SUMMARY | 2024-09-30 12:29 | XMS_ITS | Encounter Summary ---
Author Organization [facility] Address [address] [place] [address] Care Team Providers Care Model Set Artist Name Role Phone Sven Peng MD Unavailable [phone] Sven Peng MD Primary Care Provider [phone] Encounter Details Date Type Department Care Team (Late st Contact Info) Description 12/19/2022 Orders Only [facility] [address] [place] [address] A, Unknown Practice [address] [place], [place] [phone] Social History Tobacco Use Types Packs/Day Years [...] Office Visit [facility] [address] [place] [address] Say Schulte, BONE CHAR PULLER [address] [facility] [place] [address] 10/15/2024 8:30 AM EDT Office Visit [facility] [address] [place] [address] Joleen Chu PA [address] [place] [address] 12/30/2024 11:00 AM EDT Office Visit [facility] [address] [place] [address] Teodora Chadwick DO [address] [place] [address] 04/12/2025 11:20 AM EST Office Visit [facility] [address] [place] [phone] Annette Bright MD [address] [place] [address] documented as of this encounter Procedures Procedure [...] documented as of this encounter Care Teams Model Set Artist Relationship Specialty Start Date End Date Sven Peng MD 112 [facility] 110 [place] [address] PCP - [employer] 04/21/20 Sven Peng MD 112 [facility] 110 [place] [address] PCP - General Internal Medicine 08/27/22 documented as of this encounter
--- OUTSIDE RECORDS SUMMARY | 2024-09-30 12:30 | XMS_ITS | Encounter Summary ---
Author Organization [facility] Address [address] [place] [address] Care Team Providers Care Meeting Specialist Name Role Phone Sven Peng MD Unavailable Sven Peng MD Primary Care Provider [phone] Encounter Details Date Type Department Care Team [...] Office Visit [facility] [address] [facility] [place] [address] Say Schulte, PRINTING SCREEN ASSEMBLER [address] [place] [address] 10/15/2024 8:30 AM EDT Office Visit [facility] [address] [place] [address] Joleen Chu PA [address] [place] [address] 12/30/2024 11:00 AM EDT Office Visit [facility] [address] [place] [address] Teodora Guajardo DO [address] [place], [place] [address] 04/12/2025 11:20 AM EST Office Visit [facility] [address] [place] [address] Annette Bright MD [address] [place], [place] [address] documented as of this encounter Procedures Procedure Name Priority Date/Time Associated Diagnosis Comments MM TOMOSYNTHESIS SCREENING BI 01/15/2024 3:47 PM EDT documented in this encounter Results * MM TOMOSYNTHESIS SCREENING BI (01/15/2024 3:47 PM EDT) Anatomical Region Laterality Modality Other 01/15/2024 3:47 PM EDT Narrative 01/15/2024 3:48 PM EDT The [address] [address] Mammography Report Signed Patient: TEODORA PATEL MR#: [id number] : 1950 Acct:[id number] Age/Sex: 73 / F ADM Date: 01/15/24 Loc: MAMMO Attending Dr: TEODORA GUAJARDO Ordering Physician: TEODORA GUAJARDO Results: Date of Service: 01/15/24 Follow Up: Procedure(s): MM tomosynthesis screening BI Accession Number(s): [id number] cc: SVEN PENG ; TEODORA GUAJARDO Patient Name: TEODORA PATEL MR#: [id number] : 1950 Exam Date: 01/15/2024 Ordering Doctor: [...] uterine cancer at age 58. LOCATION: The [facility] BREAST COMPOSITION: There are scattered areas of [...] Signed By: 01/15/24 1548 DD/ 1547 TD/TT: Affiliate Marketing Specialist: Procedure Note Radiology, Radiologist, - 01/15/2024 [place] [address] Mammography Report Signed Patient: TEODORA PATEL BMR#: [id number] : 8Acct:[id number] Age/Sex: 73 / FADM Date: 01/15/24 Loc: MAMMO Attending Dr: TEODORA GUAJARDO Ordering Physician: TEODORA GUAJARDOResults: Date of Service: 01/15/24Follow Up: Procedure(s): MM tomosynthesis screening BI Accession Number(s): [id number] cc: SVEN PENG ; TEODORA GUAJARDO Patient Name: TEODORA APTEL MR#: [id number] : 1950 Exam Date: 01/15/2024 Ordering Doctor: DR. TEODORA GUAJARDO D.O. RADIOLOGY REPORT PROCEDURE: MM TOMOSYNTHESIS SCREENING BI COMPARISON: MM TOMOSYNTHESIS SCREENING BI, 12/19/2022. MG MAMM [id number] SHARAD CAD, 12/07/2021. INDICATIONS: Screening for malignant neoplasm Calculator Name NCI Breast Cancer Risk Assessment Tool 5 Year Breast Cancer Risk 2.10% Lifetime Breast Cancer Risk 4.60% Personal Breast Cancer No Personal Ovarian Cancer No Treatments None Family Cancers Sister with uterine cancer at age 60. LOCATION: The [facility] BREAST COMPOSITION: There are scattered areas of [...] M.D. Signed By:01/15/24 1548 DD/ 1547 TD/TT: Affiliate Marketing Specialist: us Generic External Data Provider [facility] Final Result documented in this encounter Visit Diagnoses Not on filedocumented in this encounter Additional Health Concerns Assessment Noted Time PHQ-9 Depression Total Score: 0 07/14/19 24 9:00 AM EDT documented as of this encounter Care Teams Meeting Specialist Relationship Specialty Start Date End Date Sven Peng MD [address] [facility] 110 [place] [address] PCP - [employer] 04/21/20 Sven Peng MD [address] [facility] 110 [place] [address] PCP - General Internal Medicine 08/27/22 documented as of this encounter
--- OUTSIDE RECORDS SUMMARY | 2024-09-30 12:30 | XMS_ITS | Encounter Summary ---
Author Organization [facility] Address [address] [place] [address] Care Team Providers Care Diesel Retrofit Designer Name Role Phone Sven Peng MD Unavailable Sven Peng MD Primary Care Provider [phone] Encounter Details Date Type Department Care Team [...] Office Visit [facility] [address] [place] [place] [address] Say Schulte, HEALTH POLICY ANALYST [address] [facility] [place] [address] 10/15/2024 8:30 AM EDT Office Visit [facility] [address] [place] [address] Joleen Chu PA [address] [place] [address] 12/30/2024 11:00 AM EDT Office Visit [facility] [address] [place] [address] Teodora Chadwick DO [address] [place] [address] 04/12/2025 11:20 AM EST Office Visit [facility] [address] [place] [address] Annette Bright MD [address] [place] [address] documented as of this encounter Procedures Procedure Name Priority Date/Time Associated Diagnosis Comments CA ECHO DOPPLER COMPLETE 10/21/2023 6:30 PM EDT documented in this encounter Results * CA ECHO DOPPLER COMPLETE (10/21/2023 6:30 PM EDT) Anatomical Region Laterality Modality Other 10/21/2023 6:30 PM EDT Narrative 10/21/2023 6:31 PM EDT The [address] [address] Cardiology Report Signed Patient: ABIMBOLAASTRIDTEODORA B MR#: [id number] : 1950 Acct:[id number] Age/Sex: 73 / F ADM Date: 10/20/23 Loc: CARD Attending Dr: CHRIS CHACKO Ordering Physician: CHRIS CHACKO Date of Service: 10/20/23 Procedure(s): CA echo doppler complete Accession Number(s): [id number] cc: SVEN PENG ; CHRIS CHACKO Patient Name: TEODORA PATEL MR#: [id number] : 1950 Exam Date: 10/20/2023 Ordering Doctor: [...] CHACKO Signed By: 10/21/231830 DD/ 29 TD/TT: Mechanical Service Technician: Procedure Note Radiology, Radiologist, - 10/21/2023 [place] [address] Cardiology Report Signed Patient: TEODORA PATEL BMR#: [id number] : 8Acct:[id number] Age/Sex: 73 / FADM Date: 10/20/23 Loc: CARD Attending Dr: CHRIS CHACKO Ordering Physician: CHRIS CHACKO Date of Service: 10/20/23 Procedure(s): CA echo doppler complete Accession Number(s): [id number] cc: SVEN PENG ; CHRIS CHACKO Patient Name: TEODORA PATEL MR#: [id number] : 1950 Exam Date: 10/20/2023 Ordering Doctor: [...] CHRIS CHACKO Signed By:10/21/231830 DD/ 29 TD/TT: Mechanical Service Technician: us Generic External Data Provider [facility] Final Result documented in this encounter Visit Diagnoses Not on filedocumented in this encounter Additional Health Concerns Assessment Noted Time PHQ-9 Depression Total Score: 0 07/14/19 24 9:00 AM EDT documented as of this encounter Care Teams Diesel Retrofit Designer Relationship Specialty Start Date End Date Sven Peng MD [address] [facility] 110 [place] [address] PCP - [employer] 04/21/20 Sven Peng MD [address] [facility] 110 [place] [address] PCP - General Internal Medicine 08/27/22 documented as of this encounter
--- OUTSIDE RECORDS SUMMARY | 2024-09-30 12:30 | XMS_ITS | Encounter Summary ---
Author Organization [facility] Address [address] [place] [address] Care Team Providers Care Crane Operator Cab Name Role Phone Sven Peng MD Unavailable [phone] Sven Peng MD Primary Care Provider [phone] Encounter Details Date Type Department Care Team (Late st Contact Info) Description 12/10/2022 Abstract [facility] [address] [facility] 210 [place] [address] Teodora Chadwick, [address] [facility] 210 [place] [address] Social History Tobacco Use Types Packs/Day Years [...] EDT Office Visit [facility] [address] [facility] [address] Say Schulte, AIRPORT SALES AGENT [address] [address] 10/15/2024 8:30 AM EDT Office Visit [facility] [address] [place] [address] Joleen Chu PA [address] [place] [address] 12/30/2024 11:00 AM EDT Office Visit [facility] [address] [place] [address] Teodora Chadwick DO [address] [place] [address] 04/12/2025 11:20 AM EST Office Visit [facility] [address] [place] [address] Annette Bright MD [address] [place] [address] documented as of this encounter Visit Diagnoses Not on filedocumented in this encounter Additional Health Concerns Assessment Noted Time PHQ-9 Depression Total Score: 7 11/12/19 23 11:00 AM EDT documented as of this encounter Care Teams Crane Operator Cab Relationship Specialty Start Date End Date Sven Peng MD [address] [place] [address] PCP - [employer] 04/21/20 Sven Peng MD [address] [place] [address] PCP - General Internal Medicine 08/27/22 documented as of this encounter
--- OUTSIDE RECORDS SUMMARY | 2024-09-30 12:30 | XMS_ITS | Encounter Summary ---
Author Organization [facility] Address [address] [place] [address] Care Team Providers Care Mixer Attendant Name Role Phone Sven Peng MD Unavailable [phone] Sven Peng MD Primary Care Provider [phone] Encounter Details Date Type Department Care Team [...] Office Visit [facility] [address] [facility] [place] [address] Say Schulte, FERMENTOLOGIST [address] [place] [facility] [place] [address] 10/15/2024 8:30 AM EDT Office Visit [facility] [address] [place] [address] Joleen Chu PA [address] [place] [address] 12/30/2024 11:00 AM EDT Office Visit [facility] [address] [place] [address] Teodora Guajardo DO [address] [place] [address] 04/12/2025 11:20 AM EST Office Visit [facility] [address] [place] [address] Annette Bright MD [address] [place], [place] [address] documented as of this encounter Procedures Procedure Name Priority Date/Time Associated Diagnosis Comments XR DEXA AXIAL SKELETON 2024 4:38 AM EDT documented in this encounter Results * XR DEXA AXIAL SKELETON (2024 4:38 AM EDT) Anatomical Region Laterality Modality Other 2024 4:38 AM EDT Narrative 2024 4:40 AM EDT The [address] [address] XRay Report Signed Patient: TEODORA PATEL MR#: [id number] : 1950 Acct:[id number] Age/Sex: 73 / F ADM Date: 01/15/24 [facility]: TEODORA GUAJARDO Ordering Physician: TEODORA GUAJARDO Date of Service: 01/15/24 Procedure(s): XR DEXA axial skeleton Accession Number(s): [id number] cc: SVEN PENG ; TEODORA GUAJARDO [address] [address] Patient Name: TEODORA PATEL MRN: [id number] date: 1950 Sex: F Assigned Patient Location: [facility] Current Patient Location: Accession/Order Number: [id number] Exam Date: 01/15/2024 14:46 Report Date: 2024 [...] prevention and treatment of osteoporosis. Osteoporos Int. 2021;33(10):3540-8570. doi: 10.1007/t47176-755-22923-a. Epub 2021Aug 16. Erratum in: Osteoporos Int. 2021Nov 15;: PMID: 39412910; PMCID: [id number]. Electronically authenticated by: BRYAN SALGUERO Date: 2024 04:38 Dictated By: Bryan Salguero M.D. Signed By: 01/16/240 DD/ 0438 TD/TT: Internist Medical Doctor Md: Procedure Note Radiology, Radiologist, - 2024 [place] [address] XRay Report Signed Patient: TEODORA PATEL BMR#: [id number] : 8Acct:[id number] Age/Sex: 73 / FADM Date: 01/15/24 Loc: MAMMO Attending Dr: TEODORA GUAJARDO Ordering Physician: TEODORA GUAJARDO Date of Service: 01/15/24 Procedure(s): XR DEXA axial skeleton Accession Number(s): [id number] cc: SVEN PENG ; TEODORA GUAJARDO The [address] [address] Patient Name: TEODORA PATEL MRN: [id number] date: 1950 Sex: F Assigned Patient Location: [facility] Current Patient Location: Accession/Order Number: [id number] Exam Date: 01/15/2024 14:46 Report Date: 2024 [...] 10-year hip fracture risk >= 3% or e47-ihow major osteoporosis-related fracture risk >= 20% (i.e., [...] to prevention and treatment of osteoporosis.Osteoporos Int. 2021;33(10):8968-2987. doi: 10.1007/g07016-869-05924-c. Epub . Erratum in: Osteoporos Int. 2021Nov 15;: PMID: 82442316; PMCID: [id number]. Electronically authenticated by: BRYAN SALGUERO Date: 2024 04:38 Dictated By: Bryan Salguero M.D. Signed By:01/16/240 DD/ 7 TD/TT: Internist Medical Doctor Md: Generic External Data Provider [facility] Final Result documented in this encounter Visit Diagnoses Not on filedocumented in this encounter Additional Health Concerns Assessment Noted Time PHQ-9 Depression Total Score: 0 07/14/19 24 9:00 AM EDT documented as of this encounter Care Teams Mixer Attendant Relationship Specialty Start Date End Date Sven Peng MD [address] [facility] 110 [place] [address] PCP - [employer] 04/21/20 Sven Peng MD [address] [facility] 110 [place] [address] PCP - General Internal Medicine 08/27/22 documented as of this encounter
--- OUTSIDE RECORDS SUMMARY | 2024-09-30 12:30 | XMS_ITS | Encounter Summary ---
Author Organization [facility] Address [address] [place] [address] Care Team Providers Care Manager Code Name Role Phone Sven Peng MD Unavailable [phone] Sven Peng MD Primary Care Provider [phone] Encounter Details Date Type Department Care Team (Late st Contact Info) Description 07/27/2024 Abstract [facility] [address] [facility] 110 [place] [address] Sven Peng MD 112 [facility] 110 [place] [address] Social History Tobacco Use Types [...] often do you attend chur ch or restoration services? Never 07/21/2024 Do you belong to any clubs o r organizations such as christianity groups, unions, fraternal or athletic groups, or [...] Recorded Patient Health Questionnaire-2 Score 0 07/27/2024 [facility] - Occupational [...] any time in the past 12 m [facility], were you homeless or living in a detention (including now)? No 07/21/2024 Comments Unknown Sex [...] Office Visit [facility] [address] [place] [address] Say Schulte, MESS COOK [address] [place], [place] [address] 10/15/2024 8:30 AM EDT Office Visit [facility] [address] [facility] 110 [place] [address] Joleen Chu PA [address] [facility] 110 [place] [address] 12/30/2024 11:00 AM EDT Office Visit [facility] [address] [place] [address] Teodora Chadwick DO [address] [place] [address] 04/12/2025 11:20 AM EST Office Visit [facility] [...] as of this encounter Care Teams Manager Code Relationship Specialty Start Date End Date Sven Peng MD [address] [facility] 110 [place] [address] PCP - [employer] 04/21/20 Sven Peng MD [address] [facility] 110 [place] [address] PCP - General Internal Medicine 08/27/22 documented as of this encounter
--- OUTSIDE RECORDS SUMMARY | 2024-09-30 12:30 | XMS_ITS | Encounter Summary ---
Author Organization [facility] Address [address] [place] [address] Care Team Providers Care Terra Cotta Roofer Name Role Phone Sven Peng MD Unavailable [phone] Sven Peng MD Primary Care Provider [phone] Encounter Details Date Type Department Care Team [...] Office Visit [facility] [address] [place] [address] Say Schulte, CRITICAL CARE TECHNICIAN [address] [place], [place] [address] 10/15/2024 8:30 AM EDT Office Visit [facility] [address] [place] [address] Joleen Chu PA [address] [place] [address] 12/30/2024 11:00 AM EDT Office Visit [facility] [address] [place] [address] Teodora Chadwick DO [address] [place], [place] [address] 04/12/2025 11:20 AM EST Office Visit [facility] [address] [place] [address] Annette Bright MD [address] [place], [place] [address] documented as of this encounter Procedures Procedure Name Priority Date/Time Associated Diagnosis Comments XR HIP 2 OR 3 VW RIGHT 02/15/2024 7:26 AM EDT documented in this encounter Results * XR hip right 2 or 3 views (02/15/2024 7:26 AM EDT) Anatomical Region Laterality Modality Lower Extremities, Hip Right Radiograp hic Imaging 02/15/2024 7:26 AM EDT Narrative 02/15/2024 7:28 AM EDT The [address] [address] XRay Report Signed Patient: ABIMBOLA,TEODORA B MR#: [id number] : 1950 Acct:[id number] Age/Sex: 74 / F ADM Date: 02/11/24 Loc: [facility] Attending Dr: Marion Landrum M.D. Ordering Physician: Marion Landrum M.D. Date of Service: 02/11/24 Procedure(s): XR hip RT min 2V Accession Number(s): [id number] cc: SVEN PENG ; Marion Landrum M.D. The [place] [address] Patient Name: TEODORA PATEL MRN: [id number] date: 1950 Sex: F Assigned Patient Location: [facility] Current Patient Location: Accession/Order Number: [id number] Exam Date: 02/11/2024 12:25 Report Date: 02/15/2024 [...] M.D. Signed By: 02/15/24727 DD/ 5 TD/TT: Engagement Mgr: Procedure Note Radiology, Radiologist, - 02/15/2024 [place] [address] XRay Report Signed Patient: TEODORA PATEL BMR#: [id number] : 1950cct:[id number] Age/Sex: 74 / FADM Date: 02/11/24 Loc: RAD Attending Dr: Marion Landrum M.D. Ordering Physician: Marion Landrum M.D. Date of Service: 02/11/24 Procedure(s): XR hip RT min 2V Accession Number(s): [id number] cc: SVEN PENG ; Marion Landrum M.D. [place] [address] Patient Name: TEODORA PATEL MRN: [id number] date: 1950 Sex: F Assigned Patient Location: [facility] Current Patient Location: Accession/Order Number: [id number] Exam Date: 02/11/2024 12:25 Report Date: 02/15/2024 [...] Salguero M.D. Signed By:02/15/24727 DD/ 5 TD/TT: Engagement Mgr: us Generic External Data Provider IMG XR PROCEDURES Final Result documented in this encounter Visit Diagnoses Not on filedocumented in this encounter Additional Health Concerns Assessment Noted Time PHQ-9 Depression Total Score: 0 07/14/19 24 9:00 AM EDT documented as of this encounter Care Teams Terra Cotta Roofer Relationship Specialty Start Date End Date Sven Peng MD [address] [facility] 110 [place] [address] PCP - [employer] 04/21/20 Sven Peng MD [address] [facility] 110 [place] [address] PCP - General Internal Medicine 08/27/22 documented as of this encounter
--- OUTSIDE RECORDS SUMMARY | 2024-09-30 12:30 | XMS_ITS | Encounter Summary ---
Author Organization [facility] Address [address] [place] [address] Care Team Providers Care Fixed Income Manager Name Role Phone Sven Peng MD Unavailable [phone] Sven Peng MD Primary Care Provider [phone] Encounter Details Date Type Department Care Team [...] Office Visit [facility] [address] [place] [address] Say Schulte, PATIENT CARE ASSISTANT [address] [place] [place] [address] 10/15/2024 8:30 AM EDT Office Visit [facility] [address] [place] [address] Joleen Chu PA [address] [place] [address] 12/30/2024 11:00 AM EDT Office Visit [facility] [address] [place] [address] Teodora Chadwick DO [address] [place] [address] 04/12/2025 11:20 AM EST Office Visit [facility] [address] [place] [address] Annette Bright MD [address] [place] [address] documented as of this encounter Procedures Procedure Name Priority Date/Time Associated Diagnosis Comments NM EJ PERF SPECT REST STR 01/13/2024 4:30 PM EDT documented in this encounter Results * NM EJ PERF SPECT REST STR (01/13/2024 4:30 PM EDT) Anatomical Region Laterality Modality Other 01/13/2024 4:30 PM EDT Narrative 01/13/2024 4:30 PM EDT The [address] [address] Nuclear Medicine Report Signed Patient: TEODORA PATEL MR#: [id number] : 1950 Acct:[id number] Age/Sex: 73 / F ADM Date: 01/12/24 Loc: [place] Attending Dr: CHRIS GARCIA Ordering Physician: CHRIS GARCIA Date of Service: 01/12/24 Procedure(s): NM ej perf SPECT rest str Accession Number(s): [id number] cc: SVEN PENG ; CHRIS GARCIA Patient Name: TEODORA PATEL MR#: [id number] : 1950 Exam Date: 01/12/2024 Ordering Doctor: [...] Signed By: 01/13/24 1630 DD/ 1630 TD/TT: Potato Chip Cooker Machine: Procedure Note Radiology, Radiologist, MD - 01/13/2024 [place] [address] Nuclear Medicine Report Signed Patient: TEODORA PATEL BMR#: [id number] : 8Acct:[id number] Age/Sex: 73 / FADM Date: 01/12/24 Loc: [place] Attending Dr: CHRIS GARCIA Ordering Physician: CHRIS GARCIA Date of Service: 01/12/24 Procedure(s): NM ej perf SPECT rest str Accession Number(s): [id number] cc: SVEN PENG ; CHRIS GARCIA Patient Name: TEODORA PATEL MR#: [id number] : 1950 Exam Date: 01/12/2024 Ordering Doctor: [...] M.D. Signed By:01/13/24 1630 DD/ 1630 TD/TT: Potato Chip Cooker Machine: us Generic External Data Provider [facility] Final Result documented in this encounter Visit Diagnoses Not on filedocumented in this encounter Additional Health Concerns Assessment Noted Time PHQ-9 Depression Total Score: 0 07/14/19 24 9:00 AM EDT documented as of this encounter Care Teams Fixed Income Manager Relationship Specialty Start Date End Date Sven Peng MD [address] [facility] 110 [place] [address] PCP - [employer] 04/21/20 Sven Peng MD [address] [facility] 110 [place] [address] PCP - General Internal Medicine 08/27/22 documented as of this encounter
--- OUTSIDE RECORDS SUMMARY | 2024-09-30 12:30 | XMS_ITS | Encounter Summary ---
Author Organization [facility] Address [address] [facility] [place] [address] Care Team Providers Care Feed Crusher Operator Name Role Phone Sven Peng MD Unavailable [phone] Sven Peng MD Primary Care Provider [phone] Encounter Details Date Type Department Care Team (Late st Contact Info) Description 12/26/2022 Abstract [facility] [address] [facility] 110 [place] [address] Sven Peng MD 112 [facility] 110 [place] [address] Social History Tobacco Use Types [...] Office Visit [facility] [address] [facility] [place] [address] Say Schulte, CAGE CLERK 629 [place] [address] 10/15/2024 8:30 AM EDT Office Visit [facility] [address] [place] [address] Joleen Chu PA [address] [place] [address] 12/30/2024 11:00 AM EDT Office Visit [facility] [address] [place] [address] Teodora Chadwick DO [address] [place] [address] 04/12/2025 11:20 AM EST Office Visit [facility] [address] [place] [address] Annette Bright MD [address] [place] [address] documented as of this encounter Visit Diagnoses Not on filedocumented in this encounter Additional Health Concerns Assessment Noted Time PHQ-9 Depression Total Score: 7 11/12/19 23 11:00 AM EDT documented as of this encounter Care Teams Feed Crusher Operator Relationship Specialty Start Date End Date Sven Peng MD [address] [place] [address] PCP - [employer] 04/21/20 Sven Peng MD [address] [place] [address] PCP - General Internal Medicine 08/27/22 documented as of this encounter
--- OUTSIDE RECORDS SUMMARY | 2024-09-30 12:30 | XMS_ITS | Encounter Summary ---
Author Organization [facility] Address [address] [place] [address] Care Team Providers Care Wood Turner Name Role Phone Sven Peng MD Unavailable [phone] Sven Peng MD Primary Care Provider [phone] Encounter Details Date Type Department Care Team (Latest Contact Info) Description 09/28/2024 Travel Social History Tobacco Use Types Packs/Day Years [...] often do you attend chur ch or jainism services? Never 07/21/2024 Do you belong to any clubs o r organizations such as episcopalian groups, unions, fraternal or athletic groups, or [...] Recorded Patient Health Questionnaire-2 Score 0 09/28/2024 [facility] [place] of Occupat ional Health - Occupational Stress [...] any time in the past 12 m [facility], were you homeless or living in a custodial (including now)? No 07/21/2024 Comments Unknown Sex [...] way Not at all 09/28/2024 12:00 PM EDT Katheryn Smith LPN Patient Health Questionnaire -9 Score 0 09/28/2024 12:00 PM EDT Katheryn Smith L PN documented as of this encounter Plan of Treatment Upcoming Encounters Date Type Department Care Team (Late st Contact Info) Description 10/07/2024 1:00 PM EDT Office Visit [facility] [address] [place] [phone] Say Schulte, EMT I/85 629 [facility], [place] [address] 10/15/2024 8:30 AM EDT Office Visit [facility] [address] [place] [address] Joleen Chu PA [address] [place] [address] 12/30/2024 11:00 AM EDT Office Visit [facility] [address] [place] [address] Teodora Chadwick DO [address] [place], [place] [address] 04/12/2025 11:20 AM EST Office Visit [facility] [address] [place] [address] Annette [place] MD [address] [place], [place] [address] documented as of this encounter Visit Diagnoses Not on filedocumented in this encounter Additional Health Concerns Assessment Noted Time PHQ-9 Depression Total Score: 0 09/29/19 25 12:00 PM EDT documented as of this encounter Care Teams Wood Turner Relationship Specialty Start Date End Date Sven Peng MD [address] [facility] [address] [place] [address] PCP - [employer] 04/21/20 Sven Peng MD [address] [facility] [address] [place] [address] PCP - General Internal Medicine 08/27/22 documented as of this encounter
--- OUTSIDE RECORDS SUMMARY | 2024-09-30 12:30 | XMS_ITS | Referral Summary ---
Author Organization [facility] Address [address] [place] [address] Care Team Providers Care Glass Rolling Machine Operator Name Role Phone Sven Peng MD Primary Care Provider [phone] Encounters Date Type Department Care Team Description 09/03/[address] [address] Marii Andre MA 08/14/2024 Refill [facility] [address] [place] [address] Ramy Chacko MD Cardiomegaly 07/29/2024 Orders Only [facility] [address] [place] [address] Marii Andre MA SCHOFIELD (dyspnea on exertion) 07/29/2024 2:20 PM EDT Office Visit [address] [address] Orquidea Arvizu CNP Palpitations (Primary Dx); Cardiomegaly; Shortness of breath; PAC (premature atrial contraction); PVC (premature ventricular contraction); Other chest pain from Last 3 Months Allergies Active Allergy Reactions Criticality Noted Date Comments Hydrocodone Hives 07/31/2018 Can take as needed, gets itching if takes as prescribed on hourly basis Sulfa (Sulfonamide Antibiotics) 12/25/2021 Medications aspirin 81 mg chewable tablet Chew 1 tablet twice a day by oral route. Active tiZANidine (Zanaflex) 4 mg tablet TAKE 1 TABLET BY MOUTH EVERYDAY AT BEDTIME NEEDED Active irbesartan (Avapro) 150 mg tablet Take 75 mg by mouth in the morning. Active PARoxetine (Paxil) 20 mg tablet 20 mg in the morning. Active cholecalciferol , vitamin D3, 50 mcg (2,000 unit) capsule 1 capsule. Activ e baclofen (Lioresal) 10 mg tablet TAKE 1/2 TO 1 TABLET BY MOUTH TWICE A DAY NEEDED 04/05/2024 Active LORazepam (Ativan) 0.5 mg tablet Take 0.5 mg by mouth every 6 (six) hours if needed. Active metoprolol succinate XL (Toprol-XL) 25 mg 24 hr tabletIndicatio ns:Cardiomegaly TAKE 1 TABLET BY MOUTH EVERY DAY [...] (08/30/2022): Added automatically from request for surgery [id number] Primary hypertension 02/25/2022 Assessment & Plan (08/30/2022 [...] Physically or Sexually Abused Not on file Comments Unknown Sex and Gender Information Value Date Recorded Sex Assigned at Not on file Legal Sex Female 12:45 AM EDT Gender Identity Not on file [...] Description 11/08/2024 1:00 PM EDT Office Visit [facility] [address] [place] [address] Ramy Chacko MD [address] [facility] [address] [facility] [place] [address] [facility] MEDICARE ADVANTAGE Care Teams Glass Rolling Machine Operator Relationship Specialty Start Date End Date Sven Peng MD 112 [facility] 110 [place] [address] PCP - General 02/22/22
--- OUTSIDE RECORDS SUMMARY | 2024-09-30 12:30 | XMS_ITS | Clinical Summary ---
Author Organization [facility] Address [address] [place] [address] Care Team Providers Care Liquor Merchant Name Role Phone Sven Peng MD Unavailable [phone] Sven Peng MD Primary Care Provider [phone] Allergies Active Allergy Reactions Criticality Noted Date [...] tablets by mouth Daily Dosing per Cardiology 3 Active aspirin 81 MG chewable tablet Chew 1 tablet twice a day by oral route. Active cyanocobalamin (Vitamin B-12) 100 MCG tablet Vitamin B12 Act conchis irbesartan (Avapro) 150 MG tabletIndications :Primary hypertension TAKE 1 TABLET BY MOUTH EVERY DAY FOR 100 DAYS 90 tablet 4 4 Active fluticasone (Flonase) 50 MCG/ACT nasal spray Administer 1 spray into each nostril Daily Shake gently. Before first use, prime pump. After use, clean tip and replace cap. Active nystatin (Mycostatin) 668957 UNIT/GM powderIndications :Erythema intertrigo Apply to the affected area, once daily, 30 day supply 60 g 11 4 Active baclofen (Lioresal) 10 MG tablet TAKE 1/2 TO 1 TABLET BY MOUTH TWICE A DAY NEEDED 4 Active PARoxetine (Paxil) 20 MG tabletIndications :Current moderate episode of major depressive disorder without prior episode (HCC) TAKE 1 TABLET BY MOUTH EVERY DAY [...] Active Problems Problem Noted Date Diagnosed Date Pulmonary hypertension, unspecified 09/28/2024 Family history of heart disease 07/27/2024 SCHOFIELD (dyspnea on exertion) 07/27/2024 History of TIA (transient ischemic attack) 07/13 History of left hip replacement 07/14/2023 Multiple perforations of right tympanic membrane 05/19/2023 Bilateral lower extremity edema 11/10/2022 Decreased estrogen level 11/10/2022 Dry eye syndrome of bilateral lacrimal glands Herniated lumbar intervertebral disc 11/10/2022 History of colon resection 11/10/2022 Obstructive hypertrophic cardiomyopathy 11/11/19 Obesity (BMI 30.0-34.9) 11/10/2022 Osteoarthritis of spine with radiculopathy, lumb ar region 11/10/2022 Primary osteoarthritis of both knees 11/10/2022 Primary osteoarthritis of left hip 11/10/2022 Punctate keratitis of both eyes 11/10/2022 Disorder of sacrum 06/25/2022 Overview (11/10/2022): Added automatically from request for surgery [id number] Added automatically from request for surgery [id number] Intermittent palpitations 02/25/2022 Overview (11/10/2022): Last Assessment & Plan: Continue metoprolol Stable and pt without c/o palpitations Left ventricular hypertrophy 09/24/2021 ETD (Eustachian tube dysfunction), right 021 Arthritis of right acromioclavicular joint 04/25 Former smoker 10/11/2019 Overview (11/10/2022): Last Assessment & Plan: stable Impaired glucose tolerance 05/11/2018 Primary hypertension 05/11/2018 [...] Perforation of right tympanic membrane 05/19/2023 07/14/2023 Keratoconjunctivitis sicca, not specified as Sjogren's, bilateral 11/10/2022 09/28/2024 Reactive airway disease 10/26/202006/20 Internal derangement of right shoulder 03/20/2020 09/28/2024 History of artificial joint 10/20/2019 07/14/2023 Obesity 08/04/2018 11/11/2022 Gastroesophageal reflux disease 07/29/2018 07/14/2023 Dyspepsia 07/13/2018 09/28/2024 Encounters Date Type Department Care Team Description 09/29/2024 Abstract [facility] [address] [place] [address] Sven Peng MD 09/28/2024 1:00 PM EDT Office Visit [facility] [address] [place] [address] [place] [address] Joleen Chu PA Medicare annual wellness visit, subsequent (Primary Dx); [...] of heart disease; SCHOFIELD (dyspnea on exertion) 09/28/2024 Bamboo flowsheet [facility] [address] [place] [address] [place] [address] Joleen Chu PA 09/28/2024 Travel 09/01/2024 Clinisync Result Encounter NOMS External Department Unsolicited Provider, Generic External Data 08/25/2024 Clinisync Result Encounter NOMS External Department Unsolicited Provider, Generic External Data 08/06/2024 Telephone [facility] [address] [address] [place] [address] Joleen Chu PA 07/27/2024 11:00 AM EDT Office Visit [facility] [address] [address] [place] [address] Joleen Chu PA Atypical chest pain (Primary Dx); Primary hypertension ; Left ventricular hypertrophy; Obstructive hypertrophic cardiomyopathy (HCC); SCHOFIELD (dyspnea on exertion); Leukocytosis, unspecified type; Family history of heart disease 07/27/2024 Abstract [facility] [address] [facility] [address] [place] [address] Sven Peng MD 07/27/2024 Abstract [facility] [address] [facility] [address] [place] [address] Sven Peng MD 07/27/2024 Bamboo flowsheet [facility] [address] [facility] [address] [place] [address] Joleen Chu PA 07/27/2024 Travel 07/21/2024 Travel 07/20/2024 Abstract [facility] [address] [facility] [address] [place] [address] Sven Peng MD from Last 3 Months Immunizations Immunization Administration [...] Heart disease Sibling Heart failure Sister 1 IndyAnahi colberte Hypertension Sister 2 Mey, Indy Migraines Sister [...] often do you attend chur ch or lutheran services? Never 07/21/2024 Do you belong to any clubs o r organizations such as hoahaoism groups, unions, fraternal or athletic groups, or [...] Recorded Patient Health Questionnaire-2 Score 0 09/28/2024 [facility] [place] of Occupat ional Health - Occupational Stress [...] time in the past 12 m [facility], were you homeless or living in [...] Mass Index 36.83 09/28/2024 1:11 PM EDT Plan of Treatment Upcoming Encounters Date Type Department Care Team (Late st Contact Info) Description 10/07/2024 1:00 PM EDT Office Visit [facility] [address] [place] [address] Say Schulte, SERVICE MANAGER [address] [facility] [place] [address] 10/15/2024 8:30 AM EDT Office Visit [facility] [address] [place] [address] Joleen Chu PA [address] [place] [address] 12/30/2024 11:00 AM EDT Office Visit [facility] [address] [place] [address] Teodora Chadwick DO [address] [place] [address] 04/12/2025 11:20 AM EST Office Visit [facility] [address] [place] [address] Annette Bright MD [address] [place] [address] Health Maintenance Due Date Last Done Comments Medicare Annual Wellness (AWV) 09/28/2025 0 09/28/2024, 12/23/2023, 07/14/2023, Additional history exists Colonoscopy Discontinued 01/30/2018 Colorectal Cancer Screening Discontinued [...] ECHO DOPPLER COMPLETE 08/25/2024 6:06 PM EDT BI MAMMOGRAM SCREENING TOMOSYNTHESIS BILATERAL Routine 2024 8:33 AM EDT Encounter for screening mammogram for breast cancer COLONOSCOPY Routine 01/30/2018 12:00 PM EDT from Last 3 Months or Most Recently Relevant to Health Maintenance Results * XR LUMBAR SPINE 6V W BENDING (09/01/2024 3:06 PM EDT) Anatomical Region Laterality Modality Other 09/01/2024 3:06 PM EDT Narrative 09/01/2024 3:08 [place] [address] XRay Report Signed Patient: TEODORA DAILY MR#: [id number] : 1950 Acct:[id number] Age/Sex: 74 / F ADM Date: 09/01/24 Loc: RAD Attending Dr: Christofer Romano NP Ordering Physician: Christofer Romano NP Date of Service: 09/01/24 Procedure(s): XR lumbar spine 6V w bending Accession Number(s): [id number] cc: SVEN PENG ; Christofer Romano NP [place] [id number] Patient Name: TEODORA DAILY MRN: [id number] date: 1950 Sex: F Assigned Patient Location: RAD Current Patient Location: RAD Accession/Order Number: [id number] Exam Date: 09/01/2024 15:01 Report Date: 09/01/2024 [...] Mcbride M.D. 09/01/2024 3:06 PM Dictation Location: [place] [address] Electronically authenticated by: [id number] Y Date: 09/01/2024 15:06 Dictated By: Joe Mcbride M.D. Signed By: 09/01/24 1508 DD/ 1506 TD/TT: Toll Repairer Central Office: Procedure Note Radiology, Radiologist, MD - 09/01/[address] [address] XRay Report Signed Patient: TEODORA DAILY BMR#: [id number] : 1950cct:[id number] Age/Sex: 74 / FADM Date: 09/01/24 Loc: NIK Attending Dr: Christofer Romano SERVICE MANAGER Ordering Physician: Christofer Romano NP Date of Service: 09/01/24 Procedure(s): XR lumbar spine 6V w bending Accession Number(s): [id number] cc: SVEN PENG ; Christofer Romano NP The [address] [address] Patient Name: TEODORA DAILY MRN: [id number] date: 1950 Sex: F Assigned Patient Location: RAD Current Patient Location: RAD Accession/Order Number: [id number] Exam Date: 09/01/2024 15:01 Report Date: 09/01/2024 [...] Mcbride M.D. 09/01/2024 3:06 PM Dictation Location: [place] [address] Electronically authenticated by: [id number] Y Date: 5:06 Dictated By: Joe Mcbride M.D. Signed By:09/01/24 1508 DD/ 1506 TD/TT: Toll Repairer Central Office: Generic External Data Provider [facility] Final Result * CA ECHO DOPPLER COMPLETE (08/25/2024 6:06 PM EDT) Anatomical Region Laterality Modality Other 08/25/2024 6:06 PM EDT Narrative 08/25/2024 6:07 PM EDT [address] [address] Cardiology Report Signed Patient: TEODORA DAILY MR#: [id number] : 1950 Acct:[id number] Age/Sex: 74 / F ADM Date: 08/25/24 Loc: CARD Attending Dr: LUIS ENRIQUE CLARKE APRN Ordering Physician: LUIS ENRIQUE CLARKE APRN Date of Service: 08/25/24 Procedure(s): CA echo doppler complete Accession Number(s): [id number] cc: SVEN PENG ; LUIS ENRIQUE CLARKE APRN Patient Name: TEODORA DAILY MR#: [id number] : 1950 Exam Date: 08/25/2024 Ordering Doctor: LUIS ENRIQUE CLARKE [facility] E[facility] PROCEDURE: CA ECHO DOPPLER COMPLETE [...] GARCIA Signed By: 08/25/241806 DD/ 05 TD/TT: Toll Repairer Central Office: Procedure Note Radiology, Radiologist, - 08/25/2024 [place] [address] Cardiology Report Signed Patient: TEODORA DAILY BMR#: [id number] : 1950cct:[id number] Age/Sex: 74 / FADM Date: 08/25/24 Loc: CARD Attending Dr: LUIS ENRIQUE CLARKE APRN Ordering Physician: LUIS ENRIQUE CLARKE APRN Date of Service: 08/25/24 Procedure(s): CA echo doppler complete Accession Number(s): [id number] cc: SVEN PENG ; LUIS ENRIQUE CLARKE APRN Patient Name: TEODORA DAILY MR#: [id number] : 1950 Exam Date: 08/25/2024 Ordering Doctor: [...] CHRIS GARCIA Signed By:08/25/241806 DD/ 05 TD/TT: Toll Repairer Central Office: us Generic External Data Provider [facility] Final Result * Bilateral screening mammogram with tomosynthesis (2024 8:33 AM EDT) Teodora E Farrukh DO IMG BI PROCEDURES Final Res ult * Colonoscopy (01/30/2018 12:00 PM EDT) Anatomical Region Laterality Modality Endoscopy 01/30/2018 12:0 0 PM EDT Narrative 01/30/2018 12:00 PM EDT PERFORMED AT [facility] LOCATION:[id number] IBS,INT.HEMORRHOIDS Procedure Note CONVERSION, GENERIC - 09/04/2022 PERFORMED AT [facility] LOCATION:[id number] IBS,INT.HEMORRHOIDS Guerita Hunter MD ENDOSCOPY PROCEDURE ORDERABLE S Final Result from Last 3 Months or Most Recently Relevant to Health Maintenance Insurance [employer] MEDICARE ADVANTAGE Care Teams Liquor Merchant Relationship Specialty Start Date End Date Sven Peng MD [address] [facility] [address] [place] [address] [facility] Sven Peng MD [address] [place] [address] PCP - General Internal Medicine 08/27/22
--- OUTSIDE RECORDS SUMMARY | 2024-09-30 12:30 | XMS_ITS | Encounter Summary ---
Author Organization [facility] Address [address] [place] [address] Care Team Providers Care Client Solutions Manager Name Role Phone Sven Peng MD Unavailable [phone] Sven Peng MD Primary Care Provider [phone] Encounter Details Date Type Department Care Team (Late st Contact Info) Description 09/29/2024 Abstract [facility] [address] [facility] 110 [place] [address] Sven Peng MD 112 [facility] 110 [place] [address] Social History Tobacco Use Types [...] often do you attend chur ch or methodist services? Never 07/21/2024 Do you belong to any clubs o r organizations such as mu-ism groups, unions, fraternal or athletic groups, or [...] Recorded Patient Health Questionnaire-2 Score 0 09/28/2024 [facility] of Occupat ional Health - Occupational [...] time in the past 12 m [facility], were you homeless or living in a prison (including now)? No 07/21/2024 Comments Unknown Sex [...] EDT Office Visit [facility] [address] [place] [address] Say Schulte, COLORING CHECKER [address] [place], [place] [address] 10/15/2024 8:30 AM EDT Office Visit [facility] [address] [facility] 110 [place] [address] Joleen Chu PA [address] [place] [address] 12/30/2024 11:00 AM EDT Office Visit [facility] [address] [place] [address] Teodora Chadwick DO [address] [place] [address] 04/12/2025 11:20 AM EST Office Visit [facility] [address] [place] [address] Annette Bright MD [address] [place] [address] documented as of this encounter Visit Diagnoses Not on filedocumented in this encounter Additional Health Concerns Assessment Noted Time PHQ-9 Depression Total Score: 0 09/29/19 25 12:00 PM EDT documented as of this encounter Care Teams Client Solutions Manager Relationship Specialty Start Date End Date Sven Peng MD [address] [facility] 110 [place] [address] PCP - [employer] 04/21/20 Sven Peng MD [address] [facility] 110 [place] [address] PCP - General Internal Medicine 08/27/22 documented as of this encounter
--- OUTSIDE RECORDS SUMMARY | 2024-09-30 12:30 | XMS_ITS | Encounter Summary ---
Author Organization [facility] Address [address] [facility] [place] [address] Care Team Providers Care Director Of Health Education Name Role Phone Sven Peng MD Unavailable [phone] Sven Peng MD Primary Care Provider [phone] Encounter Details Date Type Department Care Team (Late st Contact Info) Description 01/29/2024 Abstract [facility] 112 [facility] 110 [place] [address] Sven Peng MD [address] [facility] 110 [place] [address] Social History Tobacco Use Types [...] EDT Office Visit [facility] [address] [place] [address] Say Schulte, SHORE HAND DREDGE OR BARGE [address] [place], [place] [address] 10/15/2024 8:30 AM EDT Office Visit [facility] [address] [place] [address] Joleen Chu PA [address] [place] [address] 12/30/2024 11:00 AM EDT Office Visit [facility] [address] [place] [address] Teodora Chadwick DO [address] [place], [place] [address] 04/12/2025 11:20 AM EST Office Visit [facility] [address] [place] [address] Annette Bright MD [address] [place], [place] [address] documented as of this encounter Visit Diagnoses Not on filedocumented in this encounter Additional Health Concerns Assessment Noted Time PHQ-9 Depression Total Score: 0 07/14/19 24 9:00 AM EDT documented as of this encounter Care Teams Director Of Health Education Relationship Specialty Start Date End Date Sven Peng MD [address] [place] [address] PCP - [employer] 04/21/20 Sven Peng MD [address] [facility] 110 [place] [address] PCP - General Internal Medicine 08/27/22 documented as of this encounter
--- OUTSIDE RECORDS SUMMARY | 2024-09-30 12:30 | XMS_ITS | Encounter Summary ---
Author Organization [facility] Address [address] [place] [address] Care Team Providers Care Corporate Security Officer Name Role Phone Sven Peng MD Unavailable Sven Peng MD Primary Care Provider [phone] Encounter Details Date Type Department Care Team (Late st Contact Info) Description 09/28/2024 Written flowsheet [facility] [address] [facility] 110 [place] [address] Joleen Chu, PA 112 [facility] 110 [place], [place] [address] Social History Tobacco Use Types Packs/Day Years [...] often do you attend chur ch or shinto services? Never 07/21/2024 Do you belong to any clubs o r organizations such as lutheran groups, unions, fraternal or athletic groups, or [...] Questionnaire-2 Score 0 09/28/2024 [facility] - Occupational Stress Questionnaire Answer Date [...] were you homeless or living in a correction (including now)? No 07/21/2024 Comments Unknown Sex [...] EDT Office Visit [facility] [address] [place] [address] Say Schulte, ENGINEER [address] [place], [place] [address] 10/15/2024 8:30 AM EDT Office Visit [facility] [address] [facility] 110 [place] [address] Joleen Chu PA [address] [place] [address] 12/30/2024 11:00 AM EDT Office Visit [facility] [address] [place] [address] Teodora Chadwick DO [address] [place] [address] 04/12/2025 11:20 AM EST Office Visit [facility] [address] [place] [address] Annette Bright MD [address] [place] [address] documented as of this encounter Visit Diagnoses Not on filedocumented in this encounter Additional Health Concerns Assessment Noted Time PHQ-9 Depression Total Score: 0 09/29/19 25 12:00 PM EDT documented as of this encounter Care Teams Corporate Security Officer Relationship Specialty Start Date End Date Sven Peng MD [address] [facility] 110 [place] [address] PCP - [employer] 04/21/20 Sven Peng MD [address] [facility] 110 [place] [address] PCP - General Internal Medicine 08/27/22 documented as of this encounter
--- OUTSIDE RECORDS SUMMARY | 2024-09-30 12:30 | XMS_ITS | Clinical Summary ---
Author Organization [facility] Address [address] [place] [address] Care Team Providers Care Evs Manager Name Role Phone Sven Peng MD Primary Care Provider [phone] Allergies Active Allergy Reactions Criticality Noted Date [...] (08/30/2022): Added automatically from request for surgery [id number] Primary hypertension 02/25/2022 Assessment & Plan (08/30/2022 [...] Type Department Care Team Description 09/03/2024 Telephone [facility] [address] [place] [address] Marii Andre MA 08/14/[address] [place] [address] Ramy Chacko MD Cardiomegaly 07/29/2024 2:20 PM EDT Office Visit [address] [place] [address] Orquidea Arvizu CNP Palpitations (Primary Dx); Cardiomegaly; Shortness of breath; PAC (premature atrial contraction); PVC (premature ventricular contraction); Other chest pain 07/29/2024 Orders Only [address] [place] [address] Marii Andre MA SCHOFIELD (dyspnea on exertion) [...] Description 11/08/2024 1:00 PM EDT Office Visit [facility] [address] [place] [address] Ramy Chacko MD [address] [facility] [place] [address] Health Maintenance Due Date Last Done Comments Medicare Annual Wellness (AWV) 1950 Depression Screening 1960 Adult Tetanus 01/15/1970 Fall Risk Screening 01/15/2013 Zoster Vaccines (2 of 2) 08/01/2019 06/06/2019, 12/2001 COVID-19 Vaccine ( season) 2023 12/16/2020, 11/24/2020 Colonoscopy Discontinued 01/30/2018 Colorectal Cancer Screening Discontinued Pneumococcal Vaccine: 50+ Years Completed 10/11/2019, 01/08/2018 Mammogram Discontinued 2024, [...] age to complete this topic Sigmoidoscopy Discontinued Insurance [employer] MEDICARE ADVANTAGE Care Teams Evs Manager Relationship Specialty Start Date End Date Sven Peng MD [address] [facility] 110 [place] [address] PCP - General 02/22/22
--- OUTSIDE RECORDS SUMMARY | 2024-09-30 12:30 | XMS_ITS | Encounter Summary ---
Author Organization [facility] Address [address] [place] [address] Care Team Providers Care Instructor Robotics Name Role Phone Sven Peng MD Unavailable [phone] Sven Peng MD Primary Care Provider [phone] Encounter Details Date Type Department Care Team (Late st Contact Info) Description 01/20/2023 Abstract [facility] [address] [facility] [address] [place] [address] Annette Bright MD [address] [facility] 350 [place] [address] Social History Tobacco Use Types Packs/Day Years [...] Office Visit [facility] [address] [facility] [place] [address] Say Schulte, HAM BONER [address] [place] [address] 10/15/2024 8:30 AM EDT Office Visit [facility] [address] [place] [address] Joleen Chu PA [address] [place] [address] 12/30/2024 11:00 AM EDT Office Visit [facility] [address] [place] [address] Teodora Chadwick DO [address] [place] [address] 04/12/2025 11:20 AM EST Office Visit [facility] [address] [place] [address] Annette Bright MD [address] [place] [address] documented as of this encounter Visit Diagnoses Not on filedocumented in this encounter Additional Health Concerns Assessment Noted Time PHQ-9 Depression Total Score: 7 11/12/19 23 11:00 AM EDT documented as of this encounter Care Teams Instructor Robotics Relationship Specialty Start Date End Date Sven Peng MD [address] [place] [address] PCP - [employer] 04/21/20 Sven Peng MD [address] [place] [address] PCP - General Internal Medicine 08/27/22 documented as of this encounter
--- OUTSIDE RECORDS SUMMARY | 2024-09-30 12:30 | XMS_ITS | Encounter Summary ---
Author Organization [facility] Address [address] [place] [address] Care Team Providers Care Seafood Process Worker Name Role Phone Sven Peng MD Unavailable [phone] Sven Peng MD Primary Care Provider [phone] Encounter Details Date Type Department Care Team (Late st Contact Info) Description 07/27/2024 Abstract [facility] [address] [facility] [facility] 110 [place] [address] Sven Peng MD 112 [facility] 110 [place] [address] Social History Tobacco Use Types [...] often do you attend chur ch or gnosticist services? Never 07/21/2024 Do you belong to any clubs o r organizations such as uatsdin groups, unions, fraternal or athletic groups, or [...] Recorded Patient Health Questionnaire-2 Score 0 07/27/2024 [facility] ional [facility] - [...] any time in the past 12 m [facility], were you homeless or living in a assisted (including now)? No 07/21/2024 Comments Unknown Sex [...] Office Visit [facility] [address] [place] [address] Say Schulte, MOVIE SHOT CAMERAMAN [address] [place], [place] [phone] 10/15/2024 8:30 AM EDT Office Visit [facility] [address] [facility] 110 [place] [address] Joleen Chu PA [address] [facility] 110 [place] [address] 12/30/2024 11:00 AM EDT Office Visit [facility] OB [address] [place] [address] Teodora Chadwick DO [address] [place] [address] 04/12/2025 11:20 AM EST Office Visit [facility] [...] documented as of this encounter Care Teams Seafood Process Worker Relationship Specialty Start Date End Date Sven Peng MD [address] [facility] 110 [place] [address] PCP - [employer] 04/21/20 Sven Peng MD [address] [facility] 110 [place] [address] PCP - General Internal Medicine 08/27/22 documented as of this encounter
--- OUTSIDE RECORDS SUMMARY | 2024-09-30 12:30 | XMS_ITS | Encounter Summary ---
Author Organization [facility] Address [address] [facility] [place] [address] Care Team Providers Care Business And Marketing Teacher Name Role Phone Sven Peng MD Unavailable [phone] Sven Peng MD Primary Care Provider [phone] Encounter Details Date Type Department Care Team (Late st Contact Info) Description 11/12/2022 Abstract [facility] 112 [facility] 110 [place] [address] Sven Peng MD 112 [facility] 110 [place] [address] Social History Tobacco Use Types [...] Office Visit [facility] [address] [place] [address] Say Schulte, LIFT MECHANIC [address] [place] [address] 10/15/2024 8:30 AM EDT Office Visit [facility] [address] [place] [address] Joleen Chu PA [address] [place] [address] 12/30/2024 11:00 AM EDT Office Visit [facility] [address] [place] [address] Teodora Chadwick DO [address] [place] [address] 04/12/2025 11:20 AM EST Office Visit [facility] [address] [place] [address] Annette Bright MD [address] [place], [place] [address] documented as of this encounter Visit Diagnoses Not on filedocumented in this encounter Additional Health Concerns Assessment Noted Time PHQ-9 Depression Total Score: 7 11/12/19 23 11:00 AM EDT documented as of this encounter Care Teams Business And Marketing Teacher Relationship Specialty Start Date End Date Sven Peng MD [address] [place] [address] PCP - [employer] 04/21/20 Sven Peng MD [address] [place] [address] PCP - General Internal Medicine 08/27/22 documented as of this encounter
--- OUTSIDE RECORDS SUMMARY | 2024-09-30 12:30 | XMS_ITS | Encounter Summary ---
Author Organization [facility] Address [address] [email or web address] [place] [address] Care Team Providers Care Roller Pneumatic Name Role Phone Sven Peng MD Unavailable Sven Peng MD Primary Care Provider [phone] Encounter Details Date Type Department Care Team (Late st Contact Info) Description 07/16/2023 Abstract [facility] 112 [facility] 110 [place] [address] Sven Peng MD 112 [facility] 110 [place] [address] Social History Tobacco Use Types [...] EDT Office Visit [facility] [address]29 [facility] [place] [address] Say Schulte, EMBOSSOGRAPH OPERATOR [address] [place], [place] [address] 10/15/2024 8:30 AM EDT Office Visit [facility] [address] [place] [address] Joleen Chu PA [address] [place] [address] 12/30/2024 11:00 AM EDT Office Visit [facility] [address] [place] [address] Teodora Chadwick DO [address] [place], [place] [address] 04/12/2025 11:20 AM EST Office Visit [facility] [address] [place] [address] Annette Bright MD [address] [place], [place] [address] documented as of this encounter Visit Diagnoses Not on filedocumented in this encounter Additional Health Concerns Assessment Noted Time PHQ-9 Depression Total Score: 0 07/14/19 24 9:00 AM EDT documented as of this encounter Care Teams Roller Pneumatic Relationship Specialty Start Date End Date Sven Peng MD [address] [place] [address] PCP - [employer] 04/21/20 Sven Peng MD 112 [facility] 110 [place] [address] PCP - General Internal Medicine 08/27/22 documented as of this encounter
--- OUTSIDE RECORDS SUMMARY | 2024-09-30 12:30 | XMS_ITS | Encounter Summary ---
Author Organization [facility] Address [address] [place] [address] Care Team Providers Care Patrol Conductor Name Role Phone Sven Peng MD Unavailable Sven Peng MD Primary Care Provider [phone] Encounter Details Date Type Department Care Team (Late st Contact Info) Description 07/20/2024 Abstract [facility] [address] [facility] 110 [place] [address] Sven Peng MD 112 [facility] 110 [place] [address] Social History Tobacco Use Types [...] often do you attend chur ch or sabianism services? Never 07/21/2024 Do you belong to any clubs o r organizations such as caodaism groups, unions, fraternal or athletic groups, or [...] Recorded Patient Health Questionnaire-2 Score 2 11/11/2022 [facility] Occupat ional Health - Occupational Stress [...] any time in the past 12 m [facility], were you homeless or living in a [facility] (including now)? No 07/21/2024 Comments Unknown Sex [...] Office Visit [facility] [address] [place] [address] Say Schulte, SEWER LINE REPAIRER [address] [place] [address] 10/15/2024 8:30 AM EDT Office Visit [facility] [address] [place] [address] Joleen Chu PA [address] [place] [address] 12/30/2024 11:00 AM EDT Office Visit [facility] [address] [place] [address] Teodora Chadwick DO [address] [place] [address] 04/12/2025 11:20 AM EST Office Visit [facility] [address] [place] [address] Annette Bright MD [address] [place] [address] documented as of this encounter Visit Diagnoses Not on filedocumented in this encounter Additional Health Concerns Assessment Noted Time PHQ-9 Depression Total Score: 0 07/14/19 24 9:00 AM EDT documented as of this encounter Care Teams Patrol Conductor Relationship Specialty Start Date End Date Sven Peng MD [address] [place] [address] PCP - Hum[employer] 04/21/20 Sven Peng MD [address] [place] [address] PCP - General Internal Medicine 08/27/22 documented as of this encounter
--- OUTSIDE RECORDS SUMMARY | 2024-09-30 12:30 | XMS_ITS | Encounter Summary ---
Author Organization [facility] Address [address] [place] [address] Care Team Providers Care Card Checker Name Role Phone Sven Peng MD Unavailable [phone] Sven Peng MD Primary Care Provider [phone] Encounter Details Date Type Department Care Team [...] Office Visit [facility] [address] [facility] [place] [address] Say Schulte, WET MACHINE TENDER [address] [place] [address] 10/15/2024 8:30 AM EDT Office Visit [facility] [address] [place] [address] Joleen Chu PA [address] [place] [address] 12/30/2024 11:00 AM EDT Office Visit [facility] [address] [place] [address] Teodora Chadwick DO [address] [place] [address] 04/12/2025 11:20 AM EST Office Visit [facility] [address] [place] [address] Annette Bright MD [address] [place], [place] [address] documented as of this encounter Procedures Procedure Name Priority Date/Time Associated Diagnosis Comments MR LUMBAR SPINE WO CON 01/22/2024 2:44 PM EDT documented in this encounter Results * MR LUMBAR SPINE WO CON (01/22/2024 2:44 PM EDT) Anatomical Region Laterality Modality Other 01/22/2024 2:44 PM EDT Narrative 01/22/2024 2:46 PM EDT The [address] [address] Magnetic Resonance Report Signed Patient: TEODORA PATEL Jessica MR#: [id number] : 1950 Acct:[id number] Age/Sex: 74 / F ADM Date: 01/22/24 Loc: MRI Attending Dr: Christofer Mathew NP Ordering Physician: Christofer Mathew NP Date of Service: 01/22/24 Procedure(s): MR lumbar spine wo con Accession Number(s): [id number] cc: SVEN PENG ; Christofer Mathew NP [place] [id number] Patient Name: TEODORA PATEL MRN: [id number] date: 1950 Sex: F Assigned Patient Location: MRI Current Patient Location: MRI Accession/Order Number: [id number] Exam Date: 01/22/2024 13:00 Report Date: 01/22/2024 [...] Signed By: 01/22/24 1446 DD/ 43 TD/TT: Repairer Shoe Sticks: Procedure Note Radiology, Radiologist, MD - 01/22/2024 [place] [address] Magnetic Resonance Report Signed Patient: TEODORA PATEL BMR#: [id number] : 1950cct:[id number] Age/Sex: 74 / FADM Date: 01/22/24 Loc: MRI Attending Dr: Christofer Mathew WET MACHINE TENDER Ordering Physician: Christofer Mathew NP Date of Service: 01/22/24 Procedure(s): MR lumbar spine wo con Accession Number(s): [id number] cc: SVEN PENG ; Christofer Mathew NP The [place] [address] Patient Name: TEODORA PATEL MRN: [id number] date: 1950 Sex: F Assigned Patient Location: MRI Current Patient Location: MRI Accession/Order Number: [id number] Exam Date: 01/22/2024 13:00 Report Date: 01/22/2024 [...] M.D. Signed By:01/22/24 1446 DD/ 1444 TD/TT: Repairer Shoe Sticks: Generic External Data Provider [facility] Final Result documented in this encounter Visit Diagnoses Not on filedocumented in this encounter Additional Health Concerns Assessment Noted Time PHQ-9 Depression Total Score: 0 07/14/19 24 9:00 AM EDT documented as of this encounter Care Teams Card Checker Relationship Specialty Start Date End Date Sven Peng MD [address] [facility] 110 [place] [address] PCP - [employer] 04/21/20 Sven Peng MD [address] [facility] 110 [place] [address] PCP - General Internal Medicine 08/27/22 documented as of this encounter
--- OUTSIDE RECORDS SUMMARY | 2024-09-30 12:31 | XMS_ITS | Clinical Summary ---
Author Organization [facility] Address [id number] [address] [place] [address] Care Team Providers Care Passenger Elevator Operator Name Role Phone Sven Peng MD Primary Care Provider [phone] Allergies Active Allergy Reactions Criticality Noted Date [...] in the evening. Take with meals. Active rtvqiujf-ecph-S A-calcium &mins (THERAGRAN-M) 9 mg iron-400 mcg [...] (06/25/2022): Added automatically from request for surgery [id number] Disorder of sacrum 06/25/2022 Overview (01/02/2023): Added automatically from request for surgery [id number] Added automatically from request for surgery [id number] Intermittent palpitations 02/25/2022 Overview (01/02/2023): Last Assessment [...] 04/05/2032 04/05/2022 Medical Devices Implanted Type Area Accounting Recruiter Device Identifier Shelf Expiration Date Model / Serial / Lot Left Hip Insurance [employer] MEDICARE Care Teams Passenger Elevator Operator Relationship Specialty Start Date End Date Sven Peng MD 112 [facility] 110 [place] [address] PCP - General Internal Medicine 07/31/18
--- NOTE | 2024-09-30 12:55 | PM.CN ---
Consult Note: HPI Data of Consult Patient: known to practice within the last 3 years Requesting Physician: Mariaelena Romano NP Primary Care Provider: GERA GALEANO Consult Narrative Reason for consult: f/u Narrative: Teodora Daily a pleasant 74 year old female with chronic low back pain presents for evaluation and management. low back pain 3/10 increasing to 10/10 aching burning increasing with standing, walking, activity. pain improved with forward flexion and sitting. utilizing tylenol, motrin, baclofen 10mg BID PRN with mild relief. ANGELLA 30%. pt recently underwent bilateral L3/4 TFESI and bilateral L4/5 TFESI with minimal relief per pt. denies falls or injury. cc:: CC: Mariaelena Romano NP Review of Systems ROS Status of ROS 10 or more systems reviewed and unremarkable except as noted in history and below Musculoskeletal Reports: back pain PFSH PFS Medical History (Updated 09/30/24 @ 12:57 by Mariaelena Romano NP) Bowel obstruction ?K56.609 - Unspecified intestinal obstruction, unspecified as to partial versus complete obstruction (ICD-10) Dyspnea on exertion ?R06.09 - Other forms of dyspnea (ICD-10) Anemia ?D64.9 - Anemia, unspecified (ICD-10) Depression ?F32.A - Depression, unspecified (ICD-10) Anxiety ?F41.9 - Anxiety disorder, unspecified (ICD-10) Snores ?R06.83 - Snoring (ICD-10) COVID-19 ?U07.1 - COVID-19 (ICD-10) Migraine ?G43.909 - Migraine, unspecified, not intractable, without status migrainosus (ICD-10) IHSS (idiopathic hypertrophic subaortic stenosis) ?I42.1 - Obstructive hypertrophic cardiomyopathy (ICD-10) Knee tendinitis ?M76.899 - Other specified enthesopathies of unspecified lower limb, excluding foot (ICD-10) Hammertoe ?M20.40 - Other hammer toe(s) (acquired), unspecified foot (ICD-10) Arthritis ?M19.90 - Unspecified osteoarthritis, unspecified site (ICD-10) Reactive airway disease ?J45.909 - Unspecified asthma, uncomplicated (ICD-10) GERD (gastroesophageal reflux disease) ?K21.9 - Gastro-esophageal reflux disease without esophagitis (ICD-10) TIA (transient ischemic attack) ?G45.9 - Transient cerebral ischemic attack, unspecified (ICD-10) Left ventricular hypertrophy ?I51.7 - Cardiomegaly (ICD-10) Sjogrens syndrome ?M35.00 - Sjogren syndrome, unspecified (ICD-10) Hearing loss ?H91.90 - Unspecified hearing loss, unspecified ear (ICD-10) Keratitis ?H16.9 - Unspecified keratitis (ICD-10) Osteoarthritis of left hip ?M16.12 - Unilateral primary osteoarthritis, left hip (ICD-10) Primary osteoarthritis of both knees ?M17.0 - Bilateral primary osteoarthritis of knee (ICD-10) Osteoarthritis of spine with radiculopathy, lumbar region ?M47.26 - Other spondylosis with radiculopathy, lumbar region (ICD-10) Overactive bladder ?N32.81 - Overactive bladder (ICD-10) Osteopenia ?M85.80 - Other specified disorders of bone density and structure, unspecified site (ICD-10) Lumbosacral spondylosis without myelopathy ?M47.817 - Spondylosis without myelopathy or radiculopathy, lumbosacral region (ICD-10) Shoulder pain ?M25.519 - Pain in unspecified shoulder (ICD-10) Internal derangement of right shoulder ?M24.811 - Other specific joint derangements of right shoulder, not elsewhere classified (ICD-10) Heart palpitations ?R00.2 - Palpitations (ICD-10) Impaired glucose tolerance ?R73.02 - Impaired glucose tolerance (oral) (ICD-10) Dyspepsia ?R10.13 - Epigastric pain (ICD-10) Dry eye ?H04.129 - Dry eye syndrome of unspecified lacrimal gland (ICD-10) Decreased estrogen level ?E28.39 - Other primary ovarian failure (ICD-10) 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 - Chronic myringitis, unspecified ear (ICD-10) Tinnitus ?H93.19 - Tinnitus, unspecified ear (ICD-10) Edema, lower extremity ?R60.0 - Localized edema (ICD-10) Arthritis of right acromioclavicular joint ?M19.011 - Primary osteoarthritis, right shoulder (ICD-10) Allergic rhinitis ?J30.9 - Allergic rhinitis, unspecified (ICD-10) Dysfunction of right eustachian tube ?H69.91 - Unspecified Eustachian tube disorder, right ear (ICD-10) Sciatica ?M54.30 - Sciatica, unspecified side (ICD-10) Back pain ?M54.9 - Dorsalgia, unspecified (ICD-10) Herniated disc Osteoporosis ?M81.0 - Age-related osteoporosis without current pathological fracture (ICD-10) Osteoarthritis ?M19.90 - Unspecified osteoarthritis, unspecified site (ICD-10) Carpal tunnel syndrome ?G56.00 - Carpal tunnel syndrome, unspecified upper limb (ICD-10) Heart murmur ?R01.1 - Cardiac murmur, unspecified (ICD-10) Hypertrophic cardiomyopathy ?I42.2 - Other hypertrophic cardiomyopathy (ICD-10) HTN (hypertension) ?I10 - Essential (primary) hypertension (ICD-10) Surgical History S/P epidural steroid injection ?Z92.241 - Personal history of systemic steroid therapy (ICD-10) History of radiofrequency ablation (RFA) of nerve of lumbar spine ?Z98.890 - Other specified postprocedural states (ICD-10) History of cataract extraction with lens replacement H/O toe surgery ?Z98.890 - Other specified postprocedural states (ICD-10) S/P total hip arthroplasty ?Z96.649 - Presence of unspecified artificial hip joint (ICD-10) H/O tympanostomy ?Z98.890 - Other specified postprocedural states (ICD-10) H/O colonoscopy ?Z98.890 - Other specified postprocedural states (ICD-10) History of bunionectomy ?Z98.890 - Other specified postprocedural states (ICD-10) History of eyelid surgery ?Z98.890 - Other specified postprocedural states (ICD-10) S/P tonsillectomy and adenoidectomy ?Z90.89 - Acquired absence of other organs (ICD-10) S/P colon resection ?Z90.49 - Acquired absence of other specified parts of digestive tract (ICD-10) Hx of tonsillectomy ?Z90.89 - Acquired absence of other organs (ICD-10) History of bladder suspension procedure ?Z98.890 - Other specified postprocedural states (ICD-10) ?Z87.448 - Personal history of other diseases of urinary system (ICD-10) History of foot surgery ?Z98.890 - Other specified postprocedural states (ICD-10) History of hip replacement ?Z96.649 - Presence of unspecified artificial hip joint (ICD-10) History of colon resection ?Z90.49 - Acquired absence of other specified parts of digestive tract (ICD-10) History of hysterectomy ?Z90.710 - Acquired absence of both cervix and uterus (ICD-10) Family History Other Family history of heart disease Family history of hypertension Family history of stroke Idiopathic hypertrophic subaortic stenosis Social History Within the past year, how often did you have a drink containing alcohol: 2-3 times a week Smoking status: Former smoker Non-prescribed substance use: denies use Highest level of school completed/degree received: some college, no degree Little interest or pleasure in doing things: not at all Feeling down, depressed, or hopeless: not at all Meds Home Medications and Allergies Home Medications ?Medication ?Instructions ?Recorded ?Confirmed ?Type aspirin 81 mg capsule 81 mg PO BID 08/21/23 09/20/24 History cyclosporine 0.05 % eye drops 1 drp ophthalmic (eye) Q12H 08/21/23 09/20/24 History (Restasis MultiDose) fluticasone propionate 50 1 spray intranasal DAILY PRN 08/21/23 09/20/24 History mcg/actuation nasal allergy symptoms spray,suspension (24 Hour Allergy Relief) irbesartan 75 mg tablet 37.5 mg PO DAILY 08/21/23 09/20/24 History metoprolol succinate 25 mg 25 mg PO DAILY 08/21/23 09/20/24 History tablet,extended release 24 hr (Toprol XL) paroxetine HCl 20 mg tablet 20 mg PO DAILY 08/21/23 09/20/24 History baclofen 10 mg tablet 10 mg PO Q12H PRN muscle spasm 02/17/24 09/20/24 History loratadine-pseudoephedrine ER 10 1 tab PO Q24H PRN allergy symptoms 03/24/24 09/20/24 History mg-240 mg tablet,extended [id number] (Claritin-D 24 Hour) multivitamin (Daily Multi-Vitamin 1 tab PO DAILY 03/24/24 09/20/24 History tablet) baclofen 10 mg tablet 10 mg PO TID PRN muscle spasm #90 07/08/24 09/20/24 Rx tabs Allergies Allergy/AdvReac Type Severity Reaction Status Date / Time oxycodone Allergy Hives Verified 09/20/24 10:02 Sulfa (Sulfonamide Allergy Rash Verified 09/20/24 10:02 Antibiotics) Exam Constitutional Documenting provider has reviewed patient's vital signs: yes Common normals: no apparent distress, oriented x3, healthy appearing, alert and well nourished General appearance: cooperative HENMT Common normals: normocephalic, hearing grossly normal bilaterally and moist oral mucous membranes Head and scalp: normocephalic Eye Common normals: PERRL Pupil: PERRL Neck & C-Spine Common normals: full ROM General: normal visual inspection Chest Common normals: inspection of chest normal Respiratory Common normals: normal respiratory effort, no retractions and no use of accessory muscles Back & Pelvis Lumbar spine/lower back: lumbar ROM normal, pain with ROM and straight leg raise negative bilaterally; no lumbar spinal tenderness, no paraspinal muscle tenderness and no paraspinal muscle spasm Other: sensation intact BLE strength 5/5 in BLE Extremity Common normals: normal to inspection and full ROM Neuro Common normals: oriented x3 Sensorium/orientation: alert Motor exam: strength 5/5 throughout and no movement abnormalities noted Psych Common normals: mental status grossly normal, thought process normal, cooperative, affect normal, speech normal and activity/motor behavior normal Speech: normal speech Thought process: normal thought process Results Imaging Lumbar MRI: Attestation: I have reviewed the pertinent imaging results. Radiologist's impression: For dictation purposes, the lowest complete disc space in the lumbar spine considered as L5-S1. There is normal physiologic lumbar lordosis and dextroscoliosis centered on L3-L4. The vertebral height is preserved. The conus medullaris is at the level of L2. No signal abnormality within the visualized spinal cord is noted. Levels of T11-T12, and T12-L1 are unremarkable. At the level of L1-L2, there are disc bulge with mild bilateral neuroforaminal narrowing and no canal stenosis. At the level of L2-L3, there are disc bulge with moderate bilateral neuroforaminal narrowing and moderate canal stenosis. At the level of L3-4, there are disc bulge with moderate right and severe left neuroforaminal narrowing and moderate canal stenosis. There are Modic type II changes at this level. At the level of L4-5, there are disc bulge with mild right and moderate left neuroforaminal narrowing and moderate canal stenosis. At the level of L5-S1, there are disc bulge with mild right neuroforaminal narrowing and no canal stenosis. Additional Findings Additional findings: If on a controlled substance or opioids, I have checked an [place] report on this patient and there are no aberrancies noted in the prescribing history.??If on a controlled substance or opioid a drug screen was completed and reviewed within the last year, and if there has not been a drug screen completed we ordered one today to monitor higher risk, state monitored pain medication use. As part of providing excellent, safe, comprehensive care, the following was completed at our patient's visit: 1. A medication reconciliation and review to ensure accurate knowledge of current/active medications, including asking our patients to inform us about any [id number] medications or herbal remedies/nutritional supplements/alternative remedies. 2. A review to specifically ensure our patients have had annual screening for screening for depression, screening for tobacco use, and screening for unhealthy alcohol use. For concerning screenings had a discussion with the patient, provided patient education, and recommended follow-up with primary care provider when appropriate. If patient noted with a risk of falling, they received education on strength, gait, and balance training to prevent future risk of falling. Portions of this note may have been carried over from the previous visit and updated as appropriate. Please note this office utilizes paper charting in addition to the electronic medical record. A list of current medications, vitals, and PMH is available there as the clinical staff outside of myself do not have access to [employer] charting during the clinic day operations. As part of providing quality comprehensive care the current medications, vitals, and PMH were reviewed in the paper chart. Assessment and Plan Assessment and Plan (1) Lumbar stenosis with neurogenic claudication: (2) Lumbar spondylosis: (3) Myalgia, other site: (4) Vertebrogenic pain: Plan The patient has had over 3 months of moderate to severe low back pain with functional impairment and inadequate response to conservative care including NSAIDS (unless there are contraindication such as concurrent blood thinners), multiple oral or topical pain medications, and home exercise program/physical therapy.? Patient has completed >6 weeks of guided home exercise program without relief of their symptoms.?no recent formal PT I have reviewed the imaging of the lumbar spine and no red flags were identified.? The imaging reveals radiographic findings consistent with vertebrogenic low back pain, lumbar stenosis with NC, and lumbar spondylosis The Oswestry Disability Index was completed, and the patient scored a 30%.? The patient noted the following:?? moderate to severe pain impacting sitting, standing, walking, lifting, sleeping, social life, travel 74 year old female with multifactorial low back pain, pt has failed to benefit from numerous interventional treatments including bilateral L3/4 and bilateral L5/S1 MBBs, bilateral L4/5 RFA, left superior gluteal RFA, bilateral L3/4 TFESI and bilateral L4/5 TFESI. Pt continues to endorse significant pain with standing and walking, now noting 90% pain in low back and 10% in LLE. we briefly discussed spinal cord stimulation today, would recommend she meet with NS to evaluate candidacy for surgical intervention vs spinal cord stimulation. start gabapentin 100mg TID, risks vs benefits reviewed. continue baclofen 10mg TID PRN pain/spasms. f/u 1 month to review medication changes.
== END 2024-09-30 12:28 | disposition home or self-care (01) ==
PROVIDERS: PCP Internal Medicine; Visit Provider Nurse Practitioner
DX: M48.062 Spinal stenosis, lumbar region with neurogenic claudication (principal); M47.816 Spondylosis without myelopathy or radiculopathy, lumbar region; M79.18 Myalgia, other site; M54.89 Other dorsalgia
CPT/HCPCS: G0463

== ENCOUNTER 2024-11-04 13:15 | Outpatient (OUT) | payer MEDICARE, SELFPAY ==
--- NOTE | 2024-11-04 14:57 | PM.CN ---
Consult Note: HPI Data of Consult Patient: known to practice within the last 3 years Requesting Physician: Mariaelena Romano NP Primary Care Provider: GERA GALEANO Consult Narrative Reason for consult: f/u Narrative: Teodora Daily a pleasant 74 year old female with chronic low back pain presents for evaluation and management. low back pain 3/10 increasing to 10/10 aching burning increasing with standing, walking, activity. pain improved with forward flexion and sitting. utilizing tylenol, motrin, baclofen 10mg BID PRN with mild relief. started on gabapentin last visit but could not tolerate due to loss of bladder. ANGELLA 38%. pt recently underwent bilateral L3/4 TFESI and bilateral L4/5 TFESI with minimal relief per pt. denies falls or injury. pending NS consult in consideration of scs trial for lumbar stenosis with NC. cc:: CC: Mariaelena Romano NP Review of Systems ROS Status of ROS 10 or more systems reviewed and unremarkable except as noted in history and below Musculoskeletal Reports: back pain PFSH PFSH Medical History (Updated 09/30/24 @ 12:57 by Mariaelena Romano NP) Bowel obstruction �K56.609 - Unspecified intestinal obstruction, unspecified as to partial versus complete obstruction (ICD-10) Dyspnea on exertion �R06.09 - Other forms of dyspnea (ICD-10) Anemia �D64.9 - Anemia, unspecified (ICD-10) Depression �F32.A - Depression, unspecified (ICD-10) Anxiety �F41.9 - Anxiety disorder, unspecified (ICD-10) Snores �R06.83 - Snoring (ICD-10) COVID-19 �U07.1 - COVID-19 (ICD-10) Migraine �G43.909 - Migraine, unspecified, not intractable, without status migrainosus (ICD-10) IHSS (idiopathic hypertrophic subaortic stenosis) �I42.1 - Obstructive hypertrophic cardiomyopathy (ICD-10) Knee tendinitis �M76.899 - Other specified enthesopathies of unspecified lower limb, excluding foot (ICD-10) Hammertoe �M20.40 - Other hammer toe(s) (acquired), unspecified foot (ICD-10) Arthritis �M19.90 - Unspecified osteoarthritis, unspecified site (ICD-10) Reactive airway disease �J45.909 - Unspecified asthma, uncomplicated (ICD-10) GERD (gastroesophageal reflux disease) �K21.9 - Gastro-esophageal reflux disease without esophagitis (ICD-10) TIA (transient ischemic attack) �G45.9 - Transient cerebral ischemic attack, unspecified (ICD-10) Left ventricular hypertrophy �I51.7 - Cardiomegaly (ICD-10) Sjogrens syndrome �M35.00 - Sjogren syndrome, unspecified (ICD-10) Hearing loss �H91.90 - Unspecified hearing loss, unspecified ear (ICD-10) Keratitis �H16.9 - Unspecified keratitis (ICD-10) Osteoarthritis of left hip �M16.12 - Unilateral primary osteoarthritis, left hip (ICD-10) Primary osteoarthritis of both knees �M17.0 - Bilateral primary osteoarthritis of knee (ICD-10) Osteoarthritis of spine with radiculopathy, lumbar region �M47.26 - Other spondylosis with radiculopathy, lumbar region (ICD-10) Overactive bladder �N32.81 - Overactive bladder (ICD-10) Osteopenia �M85.80 - Other specified disorders of bone density and structure, unspecified site (ICD-10) Lumbosacral spondylosis without myelopathy �M47.817 - Spondylosis without myelopathy or radiculopathy, lumbosacral region (ICD-10) Shoulder pain �M25.519 - Pain in unspecified shoulder (ICD-10) Internal derangement of right shoulder �M24.811 - Other specific joint derangements of right shoulder, not elsewhere classified (ICD-10) Heart palpitations �R00.2 - Palpitations (ICD-10) Impaired glucose tolerance �R73.02 - Impaired glucose tolerance (oral) (ICD-10) Dyspepsia �R10.13 - Epigastric pain (ICD-10) Dry eye �H04.129 - Dry eye syndrome of unspecified lacrimal gland (ICD-10) Decreased estrogen level �E28.39 - Other primary ovarian failure (ICD-10) Chronic tympanitis �H73.10 - Chronic myringitis, unspecified ear (ICD-10) Tinnitus �H93.19 - Tinnitus, unspecified ear (ICD-10) Edema, lower extremity �R60.0 - Localized edema (ICD-10) Arthritis of right acromioclavicular joint �M19.011 - Primary osteoarthritis, right shoulder (ICD-10) Allergic rhinitis �J30.9 - Allergic rhinitis, unspecified (ICD-10) Dysfunction of right eustachian tube �H69.91 - Unspecified Eustachian tube disorder, right ear (ICD-10) Sciatica �M54.30 - Sciatica, unspecified side (ICD-10) Back pain �M54.9 - Dorsalgia, unspecified (ICD-10) Herniated disc Osteoporosis �M81.0 - Age-related osteoporosis without current pathological fracture (ICD-10) Osteoarthritis �M19.90 - Unspecified osteoarthritis, unspecified site (ICD-10) Carpal tunnel syndrome �G56.00 - Carpal tunnel syndrome, unspecified upper limb (ICD-10) Heart murmur �R01.1 - Cardiac murmur, unspecified (ICD-10) Hypertrophic cardiomyopathy �I42.2 - Other hypertrophic cardiomyopathy (ICD-10) HTN (hypertension) �I10 - Essential (primary) hypertension (ICD-10) Surgical History S/P epidural steroid injection �Z92.241 - Personal history of systemic steroid therapy (ICD-10) History of radiofrequency ablation (RFA) of nerve of lumbar spine �Z98.890 - Other specified postprocedural states (ICD-10) History of cataract extraction with lens replacement H/O toe surgery �Z98.890 - Other specified postprocedural states (ICD-10) S/P total hip arthroplasty �Z96.649 - Presence of unspecified artificial hip joint (ICD-10) H/O tympanostomy �Z98.890 - Other specified postprocedural states (ICD-10) H/O colonoscopy �Z98.890 - Other specified postprocedural states (ICD-10) History of bunionectomy �Z98.890 - Other specified postprocedural states (ICD-10) History of eyelid surgery �Z98.890 - Other specified postprocedural states (ICD-10) S/P tonsillectomy and adenoidectomy �Z90.89 - Acquired absence of other organs (ICD-10) S/P colon resection �Z90.49 - Acquired absence of other specified parts of digestive tract (ICD-10) Hx of tonsillectomy �Z90.89 - Acquired absence of other organs (ICD-10) History of bladder suspension procedure �Z98.890 - Other specified postprocedural states (ICD-10) �Z87.448 - Personal history of other diseases of urinary system (ICD-10) History of foot surgery �Z98.890 - Other specified postprocedural states (ICD-10) History of hip replacement �Z96.649 - Presence of unspecified artificial hip joint (ICD-10) History of colon resection �Z90.49 - Acquired absence of other specified parts of digestive tract (ICD-10) History of hysterectomy �Z90.710 - Acquired absence of both cervix and uterus (ICD-10) Family History Other Family history of heart disease Family history of hypertension Family history of stroke Idiopathic hypertrophic subaortic stenosis Social History Within the past year, how often did you have a drink containing alcohol: 2-3 times a week Smoking status: Former smoker Non-prescribed substance use: denies use Highest level of school completed/degree received: some college, no degree Little interest or pleasure in doing things: not at all Feeling down, depressed, or hopeless: not at all Meds Home Medications and Allergies Home Medications �Medication �Instructions �Recorded �Confirmed �Type aspirin 81 mg capsule 81 mg PO BID 08/21/23 09/20/24 History cyclosporine 0.05 % eye drops 1 drp ophthalmic (eye) Q12H 08/21/23 09/20/24 History (Restasis MultiDose) fluticasone propionate 50 1 spray intranasal DAILY PRN 08/21/23 09/20/24 History mcg/actuation nasal allergy symptoms spray,suspension (24 Hour Allergy Relief) irbesartan 75 mg tablet 37.5 mg PO DAILY 08/21/23 09/20/24 History metoprolol succinate 25 mg 25 mg PO DAILY 08/21/23 09/20/24 History tablet,extended release 24 hr (Toprol XL) paroxetine HCl 20 mg tablet 20 mg PO DAILY 08/21/23 09/20/24 History baclofen 10 mg tablet 10 mg PO Q12H PRN muscle spasm 02/17/24 09/20/24 History loratadine-pseudoephedrine ER 10 1 tab PO Q24H PRN allergy symptoms 03/24/24 09/20/24 History mg-240 mg tablet,extended [id number] (Claritin-D 24 Hour) multivitamin (Daily Multi-Vitamin 1 tab PO DAILY 03/24/24 09/20/24 History tablet) baclofen 10 mg tablet 10 mg PO TID PRN muscle spasm #90 07/08/24 09/20/24 Rx tabs gabapentin 100 mg capsule 100 mg PO TID #90 caps 09/30/24 Rx Allergies Allergy/AdvReac Type Severity Reaction Status Date / Time oxycodone Allergy Hives Verified 09/20/24 10:02 Sulfa (Sulfonamide Allergy Rash Verified 09/20/24 10:02 Antibiotics) Exam Constitutional Documenting provider has reviewed patient's vital signs: yes Common normals: no apparent distress, oriented x3, healthy appearing, alert and well nourished General appearance: cooperative HENMT Common normals: normocephalic, hearing grossly normal bilaterally and moist oral mucous membranes Head and scalp: normocephalic Eye Common normals: PERRL Pupil: PERRL Neck & C-Spine Common normals: full ROM General: normal visual inspection Chest Common normals: inspection of chest normal Respiratory Common normals: normal respiratory effort, no retractions and no use of accessory muscles Back & Pelvis Lumbar spine/lower back: lumbar ROM normal, pain with ROM and straight leg raise negative bilaterally; no lumbar spinal tenderness, no paraspinal muscle tenderness and no paraspinal muscle spasm Other: sensation intact BLE strength 5/5 in BLE increased pain on exam at L3/4 with forward flexion Extremity Common normals: normal to inspection and full ROM Neuro Common normals: oriented x3 Sensorium/orientation: alert Motor exam: strength 5/5 throughout and no movement abnormalities noted Psych Common normals: mental status grossly normal, thought process normal, cooperative, affect normal, speech normal and activity/motor behavior normal Speech: normal speech Thought process: normal thought process Results Imaging Lumbar MRI: Attestation: I have reviewed the pertinent imaging results. Radiologist's impression: For dictation purposes, the lowest complete disc space in the lumbar spine considered as L5-S1. There is normal physiologic lumbar lordosis and dextroscoliosis centered on L3-L4. The vertebral height is preserved. The conus medullaris is at the level of L2. No signal abnormality within the visualized spinal cord is noted. Levels of T11-T12, and T12-L1 are unremarkable. At the level of L1-L2, there are disc bulge with mild bilateral neuroforaminal narrowing and no canal stenosis. At the level of L2-L3, there are disc bulge with moderate bilateral neuroforaminal narrowing and moderate canal stenosis. At the level of L3-4, there are disc bulge with moderate right and severe left neuroforaminal narrowing and moderate canal stenosis. There are Modic type II changes at this level. At the level of L4-5, there are disc bulge with mild right and moderate left neuroforaminal narrowing and moderate canal stenosis. At the level of L5-S1, there are disc bulge with mild right neuroforaminal narrowing and no canal stenosis. Additional Findings Additional findings: If on a controlled substance or opioids, I have checked an [place] report on this patient and there are no aberrancies noted in the prescribing history.��If on a controlled substance or opioid a drug screen was completed and reviewed within the last year, and if there has not been a drug screen completed we ordered one today to monitor higher risk, state monitored pain medication use. As part of providing excellent, safe, comprehensive care, the following was completed at our patient's visit: 1. A medication reconciliation and review to ensure accurate knowledge of current/active medications, including asking our patients to inform us about any ktry-sjq-ntjloyl medications or herbal remedies/nutritional supplements/alternative remedies. 2. A review to specifically ensure our patients have had annual screening for screening for depression, screening for tobacco use, and screening for unhealthy alcohol use. For concerning screenings had a discussion with the patient, provided patient education, and recommended follow-up with primary care provider when appropriate. If patient noted with a risk of falling, they received education on strength, gait, and balance training to prevent future risk of falling. Portions of this note may have been carried over from the previous visit and updated as appropriate. Please note this office utilizes paper charting in addition to the electronic medical record. A list of current medications, vitals, and PMH is available there as the clinical staff outside of myself do not have access to [employer] charting during the clinic day operations. As part of providing quality comprehensive care the current medications, vitals, and PMH were reviewed in the paper chart. Assessment and Plan Assessment and Plan (1) Vertebrogenic pain: (2) Lumbar stenosis with neurogenic claudication: (3) Lumbar spondylosis: (4) Myalgia, other site: Plan The patient has had over 3 months of moderate to severe low back pain with functional impairment and inadequate response to conservative care including NSAIDS (unless there are contraindication such as concurrent blood thinners), multiple oral or topical pain medications, and home exercise program/physical therapy.� Patient has completed >6 weeks of guided home exercise program without relief of their symptoms.�no recent formal PT I have reviewed the imaging of the lumbar spine and no red flags were identified.� The imaging reveals radiographic findings consistent with vertebrogenic low back pain, lumbar stenosis with NC, and lumbar spondylosis The Oswestry Disability Index was completed, and the patient scored a 38%.� The patient noted the following:�� moderate to severe pain impacting sitting, standing, walking, lifting, sleeping, social life, travel 74 year old female with multifactorial low back pain, pt has failed to benefit from numerous interventional treatments including bilateral L3/4 and bilateral L5/S1 MBBs, bilateral L4/5 RFA, left superior gluteal RFA, bilateral L3/4 TFESI and bilateral L4/5 TFESI. Pt continues to endorse significant pain with standing and walking, now noting 90% pain in low back and 10% in LLE. pt pending ns consult in consideration of scs for lumbar stenosis with NC. pt would like to proceed with L3/4 intracept for vertebrogenic low back pain secondary to second degree modic changes under mac sedation with Dr Vega prior to scs trial. risks vs benefits reviewed. stop gabapentin, start pregabalin 50mg BID. f/u after intracept.
== END 2024-11-04 13:16 | disposition home or self-care (01) ==
LOC: PM 13:15
PROVIDERS: PCP Internal Medicine; Visit Provider Nurse Practitioner
DX: M54.89 Other dorsalgia (principal); M48.062 Spinal stenosis, lumbar region with neurogenic claudication; M47.816 Spondylosis without myelopathy or radiculopathy, lumbar region; M79.18 Myalgia, other site
CPT/HCPCS: G0463

== ENCOUNTER 2024-11-24 10:40 | Outpatient (RCR) | payer MEDICARE, SELFPAY | END 2024-12-03 07:02 | disposition home or self-care (01) | LOC: PT 10:40 | PROVIDERS: PCP Internal Medicine; Visit Provider Personal Emergency Response Attendant | DX: M54.50 Low back pain, unspecified (principal); M47.26 Other spondylosis with radiculopathy, lumbar region | CPT/HCPCS: 97014; 97110; 97112; 97113; 97140; 97163 ==

== ENCOUNTER 2025-01-19 10:14 | Outpatient (OUT) | payer MEDICARE, SELFPAY ==
--- OUTSIDE RECORDS SUMMARY | 2025-01-19 10:18 | XMS_ITS | Encounter Summary ---
Author Organization [facility] Address [address] [facility] [place] [address] Care Team Providers Care Vice President Of Talent Management Name Role Phone Sven Peng MD Primary Care Provider [phone] Joleen Chu Unavailable [phone] Encounter Details Date Type Department Care Team [...] Care Team (Late st Contact Info) Description 01/20/2025 2:00 PM EDT [facility] [address] [place] [address] Joleen Chu PA [address] [place] [address] 04/12/2025 11:20 AM EST Office Visit [facility] [address] [place] [address] Annette Bright MD [address] [place] [address] 01/11/2026 11:00 AM EDT Office Visit [facility] [address] [place] [address] Teodora Chadwick MalikDO [address] [place] [address] documented as of this encounter Procedures Procedure Name Priority Date/Time Associated Diagnosis Comments XR HIP 2 OR 3 VW RIGHT 02/15/2024 7:26 AM EDT documented in this encounter Results * XR hip right 2 or 3 views (02/15/2024 7:26 AM EDT) Anatomical Region Laterality Modality Lower Extremities, Hip Right Radiograp hic Imaging 02/15/2024 7:26 AM EDT Narrative 02/15/2024 7:28 AM EDT The [address] [address] XRay Report Signed Patient: TEODORA PATEL MR#: [id number] : 1950 Acct:[id number] Age/Sex: 74 / F ADM Date: 02/11/24 Loc: RAD Attending Dr: Marion Landrum M.D. Ordering Physician: Marion Landrum M.D. Date of Service: 02/11/24 Procedure(s): XR hip RT min 2V Accession Number(s): [id number] cc: SVEN PENG ; Marion Landrum M.D. The [place] [id number] Patient Name: TEODORA PATEL MRN: [id number] date: 1950 Sex: F Assigned Patient Location: RAD Current Patient Location: PM Accession/Order Number: [id number] Exam Date: 02/11/2024 12:25 Report Date: 02/15/2024 [...] M.D. Signed By: 02/15/24727 DD/ 5 TD/TT: Crab Fisherman: Procedure Note Radiology, Radiologist, MD - 02/15/2024 [place] [address] XRay Report Signed Patient: TEODORA PATEL BMR#: [id number] : 1950cct:[id number] Age/Sex: 74 / FADM Date: 02/11/24 Loc: RAD Attending Dr: Marion Landrum M.D. Ordering Physician: Marion Landrum M.D. Date of Service: 02/11/24 Procedure(s): XR hip RT min 2V Accession Number(s): [id number] cc: SVEN PENG ; Marion Landrum M.D. The [place] [id number] Patient Name: TEODORA PATEL MRN: [id number] date: 1950 Sex: F Assigned Patient [facility]: [facility] Current Patient Location: Accession/Order Number: [id number] Exam Date: 02/11/2024 12:25 Report Date: 02/15/2024 [...] Salguero M.D. Signed By:02/15/24727 DD/ 5 TD/TT: Crab Fisherman: Generic External Data Provider IMG XR PROCEDURES Final Result documented in this encounter Visit Diagnoses Not on filedocumented in this encounter Additional Health Concerns Assessment Noted Time PHQ-9 Depression Total Score: 0 07/14/19 24 9:00 AM EDT documented as of this encounter Care Teams Vice President Of Talent Management Relationship Specialty Start Date End Date Sven Peng MD [address] [facility] [address] [place] [address] PCP - General Internal Medicine 08/27/22 Joleen Chu PA [address] [facility] [address] [place], [place] [id number] PCP - Zari 04/21/20 documented as of this encounter
--- OUTSIDE RECORDS SUMMARY | 2025-01-19 10:18 | XMS_ITS | Clinical Summary ---
Author Organization [facility] Address [id number] [address] [place] [address] Care Team Providers Care Lead Vulcanizing Operator Name Role Phone Sven Peng MD Primary Care Provider [phone] Allergies Active Allergy Reactions Criticality Noted Date [...] in the evening. Take with meals. Active hhpfvtzt-omjw-U A-calcium &mins (THERAGRAN-M) 9 mg iron-400 mcg [...] (06/25/2022): Added automatically from request for surgery [id number] Disorder of sacrum 06/25/2022 Overview (01/02/2023): Added automatically from request for surgery [id number] Added automatically from request for surgery [id number] Intermittent palpitations 02/25/2022 Overview (01/02/2023): Last Assessment [...] Vaccine (3 of 3) 08/01/2019 06/06/2019, 01/27/2002 Tobacco Screening 01/11/2024 COVID-19 Vaccine (3 - 2024-2 6 season) 2024 12/16/2020, 11/24/2020 Influenza Vaccine 12/20/2024 02/05/2023, , 01/25/2021, Additional history exists DTaP,Tdap and Td Vaccines (2 - Tdap) 04/05/2032 04/05/2022 Medical Devices Implanted Type Area Tank Hoop Bender Device Identifier Shelf Expiration Date Model / Serial / Lot Left Hip Insurance [employer] MED[employer] Care Teams Lead Vulcanizing Operator Relationship Specialty Start Date End Date Sven Peng MD [address] [facility] [address] [place] [address] PCP - General Internal Medicine 07/31/18
--- OUTSIDE RECORDS SUMMARY | 2025-01-19 10:18 | XMS_ITS | Encounter Summary ---
Author Organization [facility] Address [address] [place] [address] Care Team Providers Care Hazmat Technician Name Role Phone Sven Peng MD Primary Care Provider [phone] Joleen Chu Unavailable [phone] Encounter Details Date Type Department Care Team (Late st Contact Info) Description 01/20/2023 [facility] [address] [facility] [address] [place] [address] Annette Bright MD [address] [facility] [address] [place] [address] Social History Tobacco Use Types Packs/Day Years [...] 01/20/2025 2:00 PM EDT Office Visit [facility] [address] [place] [address] Joleen Chu PA [address] [place] [address] 04/12/2025 11:20 AM EST Office Visit [facility] [place] [facility] [address] [place] [address] Annette Bright MD [address] [place], [place] [id number] 01/11/2026 11:00 AM EDT [facility] [address] [place] [address] Teodora Chadwick DO [address] [place], [place] [id number] documented as of this encounter Visit Diagnoses Not on filedocumented in this encounter Additional Health Concerns Assessment Noted Time PHQ-9 Depression Total Score: 7 11/12/19 11:00 AM EDT documented as of this encounter Care Teams Hazmat Technician Relationship Specialty Start Date End Date Sven Peng MD [address] [place] [address] PCP - General Internal Medicine 08/27/22 Joleen Chu PA [address] [place] [address] PCP - [employer] 04/21/20 documented as of this encounter
--- OUTSIDE RECORDS SUMMARY | 2025-01-19 10:18 | XMS_ITS | Encounter Summary ---
Author Organization [facility] Address [address] [place] [address] Care Team Providers Care Research Staff Member Name Role Phone Sven Peng MD Primary Care Provider Joleen Chu Unavailable [phone] Encounter Details Date Type Department Care Team (Latest Contact Info) Description 01/18/2025 Travel Social History Tobacco Use Types Packs/Day [...] often do you attend chur ch or gnosticism services? Never 07/21/2024 Do you belong to any clubs o r organizations such as rastafarian groups, unions, fraternal or athletic groups, or [...] Recorded Patient Health Questionnaire-2 Score 0 09/28/2024 [facility] - Occupational Stress Questionnaire Answer Date Recorded [...] any time in the past 12 m [facility], were you homeless or living in a jail (including now)? No 07/21/2024 Comments Unknown Sex [...] Description 01/20/2025 2:00 PM EDT [facility] [place] [facility] [address] [place] [address] Joleen Chu PA [address] [place] [address] 04/12/2025 11:20 AM EST Office Visit [facility] [place] [facility] [address] [place] [address] Annette Bright MD [address] [place] [address] 01/11/2026 11:00 AM EDT Office Visit [facility] [place] [facility] [address] [place] [address] Teodora Chadwick DO [address] [place], [place] [id number] documented as of this encounter Visit Diagnoses Not on filedocumented in this encounter Additional Health Concerns Assessment Noted Time PHQ-9 Depression Total Score: 0 09/29/19 25 12:00 PM EDT documented as of this encounter Care Teams Research Staff Member Relationship Specialty Start Date End Date Sven Peng MD [address] [place] [address] PCP - General Internal Medicine 08/27/22 Joleen Chu PA [address] [address] PCP - [employer] 04/21/20 documented as of this encounter
--- OUTSIDE RECORDS SUMMARY | 2025-01-19 10:18 | XMS_ITS | Encounter Summary ---
Author Organization [facility] Address [address] [facility] [place] [address] Care Team Providers Care Buttonhole Facer Name Role Phone Sven Peng MD Primary Care Provider [phone] Joleen Chu PA Unavailable Encounter Details Date Type Department Care Team (Late st Contact Info) Description 01/29/2024 Abstract [facility] [place] [facility] 112 [facility] 110 [place] [address] Sven Peng MD 112 [facility] 110 [place] [address] Social History Tobacco Use Types Packs/Day Years [...] 01/20/2025 2:00 PM EDT Office Visit [facility] [address] [place] [address] Joleen Chu PA [address] [place] [address] 04/12/2025 11:20 AM EST Office Visit [facility] [place] [facility] [address] [place] [address] Annette Bright MD [address] [place] [address] 01/11/2026 11:00 AM EDT Office Visit [facility] [place] [facility] [address] [place] [address] Teodora Chadwick DO [address] [place] [address] documented as of this encounter Visit Diagnoses Not on filedocumented in this encounter Additional Health Concerns Assessment Noted Time PHQ-9 Depression Total Score: 0 07/14/19 9:00 AM EDT documented as of this encounter Care Teams Buttonhole Facer Relationship Specialty Start Date End Date Sven Peng MD [address] [place] [address] PCP - General Internal Medicine 08/27/22 Jloeen Chu PA [address] [place] [address] PCP - Hum[employer] 04/21/20 documented as of this encounter
--- OUTSIDE RECORDS SUMMARY | 2025-01-19 10:18 | XMS_ITS | Encounter Summary ---
Author Organization [facility] Address [address] [facility] [place] [address] Care Team Providers Care Compression Molding Machine Operator Name Role Phone Sven Peng MD Primary Care Provider [phone] Joleen Chu Unavailable [phone] Encounter Details Date Type Department Care Team [...] 2:00 PM EDT [facility] [address] [place] [address] Joleen Chu PA [address] [place] [address] 04/12/2025 11:20 AM EST Office Visit [facility] [place] [facility] [address] [place] [address] Annette Bright MD [address] [place] [address] 01/11/2026 11:00 AM EDT Office Visit [facility] [address] [place] [address] Teodora Chadwick DO [address] [place] [address] documented as of this encounter Procedures Procedure Name Priority Date/Time Associated Diagnosis Comments CA ECHO DOPPLER COMPLETE 10/21/2023 6:30 PM EDT documented in this encounter Results * CA ECHO DOPPLER COMPLETE (10/21/2023 6:30 PM EDT) Anatomical Region Laterality Modality Other 10/21/2023 6:30 PM EDT Narrative 10/21/2023 6:31 PM EDT The [address] [address] Cardiology Report Signed Patient: TEODORA PATEL MR#: [id number] : 1950 Acct:[id number] Age/Sex: 73 / F ADM Date: 10/20/23 Loc: CARD Attending Dr: CHRIS CHACKO Ordering Physician: CHRIS CHACKO Date of Service: 10/20/23 Procedure(s): CA echo doppler complete Accession Number(s): [id number] cc: SVEN PENG ; CHRIS CHACKO Patient Name: TEODORA PATEL MR#: [id number] : 1950 Exam Date: 10/20/2023 Ordering Doctor: [...] CHACKO Signed By: 10/21/231830 DD/ 29 TD/TT: Java Web Architect: Procedure Note Radiology, Radiologist, - 10/21/2023 The [address] [place] [address] Cardiology Report Signed Patient: TEODORA PATEL BMR#: [id number] : 1950cct:[id number] Age/Sex: 73 / FADM Date: 10/20/23 Loc: CARD Attending Dr: CHRIS CHACKO Ordering Physician: CHRIS CHACKO Date of Service: 10/20/23 Procedure(s): CA echo doppler complete Accession Number(s): [id number] cc: SVEN PENG ; CHRIS CHACKO Patient Name: TEODORA PATEL MR#: [id number] : 1950 Exam Date: 10/20/2023 Ordering Doctor: [...] CHRIS CHACKO Signed By:10/21/231830 DD/ 29 TD/TT: Java Web Architect: Generic External Data Provider [facility] Final Result documented in this encounter Visit Diagnoses Not on filedocumented in this encounter Additional Health Concerns Assessment Noted Time PHQ-9 Depression Total Score: 0 07/14/19 24 9:00 AM EDT documented as of this encounter Care Teams Compression Molding Machine Operator Relationship Specialty Start Date End Date Sven Peng MD [address] [address] PCP - General Internal Medicine 08/27/22 Joleen Chu PA [address] [address] PCP - Hum[employer] 04/21/20 documented as of this encounter
--- OUTSIDE RECORDS SUMMARY | 2025-01-19 10:18 | XMS_ITS | Encounter Summary ---
Author Organization [facility] Address [address] [facility] [place] [address] Care Team Providers Care Pelota Maker Name Role Phone Sven Peng MD Primary Care Provider [phone] Joleen Chu Unavailable [phone] Encounter Details Date Type Department Care Team [...] 2:00 PM EDT [facility] [address] [place] [address] Joleen Chu PA [address] [place] [address] 04/12/2025 11:20 AM EST Office Visit [facility] [address] [place] [address] Annette Bright MD [address] [place] [address] 01/11/2026 11:00 AM EDT Office Visit [facility] [place] [facility] [address] [place] [address] Teodora Chadwick DO [address] [place] [address] documented as of this encounter Procedures Procedure Name Priority Date/Time Associated Diagnosis Comments MM TOMOSYNTHESIS SCREENING BI 01/15/2024 3:47 PM EDT documented in this encounter Results * MM TOMOSYNTHESIS SCREENING BI (01/15/2024 3:47 PM EDT) Anatomical Region Laterality Modality Other 01/15/2024 3:47 PM EDT Narrative 01/15/2024 3:48 PM EDT The [address] [address] Mammography Report Signed Patient: TEODORA PATEL MR#: [id number] : 1950 Acct:[id number] Age/Sex: 73 / F ADM Date: 01/15/24 Loc: MAMMO Attending Dr: TEODORA CHADWICK Ordering Physician: TEODORA CHADWICK Results: Date of Service: 01/15/24 Follow Up: Procedure(s): MM tomosynthesis screening BI Accession Number(s): [id number] cc: SVEN PENG ; TEODORA CHADWICK Patient Name: TEODORA PATEL MR#: [id number] : 1950 Exam Date: 01/15/2024 Ordering Doctor: DR. TEODORA CHADWICK D.O. RADIOLOGY REPORT PROCEDURE: MM TOMOSYNTHESIS SCREENING BI COMPARISON: MM TOMOSYNTHESIS SCREENING BI, 12/19/2022. MG MAMM SCREEN 3D SHARAD CAD, 12/07/2021. INDICATIONS: Screening for malignant neoplasm Calculator Name [facility] Breast Cancer Risk Assessment Tool 5 Year Breast Cancer Risk 2.10% Lifetime Breast Cancer Risk 4.60% Personal Breast Cancer No Personal Ovarian Cancer No Treatments None Family Cancers Sister with uterine cancer at age 60. LOCATION: [facility] BREAST COMPOSITION: There are scattered areas [...] Signed By: 01/15/24 1548 DD/ 1547 TD/TT: Recording Studio Intern: Procedure Note Radiology, Radiologist, MD - 01/15/2024 [place] [address] Mammography Report Signed Patient: TEODORA PATEL BMR#: [id number] : 1950cct:[id number] Age/Sex: 73 / FADM Date: 01/15/24 Loc: MAMMO Attending Dr: TEODORA CHADWICK Ordering Physician: TEODORA CHADWICKResults: Date of Service: 01/15/24Follow Up: Procedure(s): MM tomosynthesis screening BI Accession Number(s): [id number] cc: SVEN PENG ; TEODORA CHADWICK Patient Name: TEODORA PATEL MR#: [id number] : 1950 Exam Date: 01/15/2024 Ordering Doctor: DR. TEODORA CHADWICK D.O. RADIOLOGY REPORT PROCEDURE: MM TOMOSYNTHESIS SCREENING BI COMPARISON: MM TOMOSYNTHESIS SCREENING BI, 12/19/2022. MG MAMM [id number] SHARAD CAD, 12/07/2021. INDICATIONS: Screening for malignant neoplasm Calculator Name [employer] Breast Cancer Risk Assessment Tool 5 Year Breast Cancer Risk 2.10% Lifetime Breast Cancer Risk 4.60% Personal Breast Cancer No Personal Ovarian Cancer No Treatments None Family Cancers Sister with uterine cancer at age 60. LOCATION: [facility] BREAST COMPOSITION: There are scattered areas [...] M.D. Signed By:01/15/24 1548 DD/ 1547 TD/TT: Recording Studio Intern: Generic External Data Provider [facility] Final Result documented in this encounter Visit Diagnoses Not on filedocumented in this encounter Additional Health Concerns Assessment Noted Time PHQ-9 Depression Total Score: 0 07/14/19 24 9:00 AM EDT documented as of this encounter Care Teams Pelota Maker Relationship Specialty Start Date End Date Sven Peng MD 112 [place] [address] PCP - General Internal Medicine 08/27/22 Joleen Chu PA 112 [facility] 110 [place] [address] PCP - Hum[employer] 04/21/20 documented as of this encounter
--- OUTSIDE RECORDS SUMMARY | 2025-01-19 10:18 | XMS_ITS | Encounter Summary ---
Author Organization [facility] Address [address] [facility] [place] [address] Care Team Providers Care Asp Net Mvc Developer Name Role Phone Sven Peng MD Primary Care Provider [phone] Joleen Chu Unavailable [phone] Encounter Details Date Type Department Care Team (Late st Contact Info) Description 12/10/2022 Abstract [facility] [place] [facility] [address] [facility] [address] [place] [address] Teodora Chadwick DO [address] [facility] [address] [place] [address] Social History Tobacco Use Types Packs/Day Years [...] PM EDT Office Visit [facility] [place] [facility] [address] [place] [address] Joleen Chu PA [address] [place] [address] 04/12/2025 11:20 AM EST Office Visit [facility] [place] [facility] [address] [place] [address] Annette Bright MD [address] [place] [address] 01/11/2026 11:00 AM EDT Office Visit [facility] [place] [facility] [address] [place] [address] Teodora Chadwick DO [address] [place], [place] [address] documented as of this encounter Visit Diagnoses Not on filedocumented in this encounter Additional Health Concerns Assessment Noted Time PHQ-9 Depression Total Score: 7 11/12/19 11:00 AM EDT documented as of this encounter Care Teams Asp Net Mvc Developer Relationship Specialty Start Date End Date Sven Peng MD [address] [place] [address] PCP - General Internal Medicine 08/27/22 Joleen Chu PA [address] [place] [address] PCP - Hum[employer] 04/21/20 documented as of this encounter
--- OUTSIDE RECORDS SUMMARY | 2025-01-19 10:18 | XMS_ITS | Encounter Summary ---
Author Organization [facility] Address [address] [facility] [place] [address] Care Team Providers Care Dictaphone Technician Name Role Phone Sven Peng MD Primary Care Provider [phone] Joleen Chu PA Unavailable [phone] Encounter Details Date Type Department Care Team (Late st Contact Info) Description 07/27/2024 [facility] [place] [facility] 112 [facility] 110 [place] [address] Sven Peng MD 112 [facility] 110 [place] [address] Social History Tobacco Use Types Packs/Day Years [...] week 07/21/2024 How often do you attend [facility] or sikh services? Never 07/21/2024 Do you belong to [...] Recorded Patient Health Questionnaire-2 Score 0 07/27/2024 [facility] - Occupational [...] any time in the past 12 [facility], were you homeless or living in a group home (including now)? No 07/21/2024 Comments Unknown [...] 2:00 PM EDT Office Visit [facility] [address] [facility] 110 [place] [address] Joleen Chu PA [address] [facility] 110 [place] [address] 04/12/2025 11:20 AM EST Office Visit [facility] [place] [facility] [address] [place] [address] Annette Bright MD [address] [place] [address] 01/11/2026 11:00 AM EDT Office Visit [facility] [place] [facility] [address] [place] [address] Teodora Chadwick DO [address] [place] [address] documented as of this encounter Visit Diagnoses Not on filedocumented in this encounter Additional Health Concerns Assessment Noted Time PHQ-9 Depression Total Score: 0 07/14/19 24 9:00 AM EDT documented as of this encounter Care Teams Dictaphone Technician Relationship Specialty Start Date End Date Sven Peng MD [address] [facility] 110 [place] [address] PCP - General Internal Medicine 08/27/22 Joleen Chu PA [address] [facility] 110 [place] [address] PCP - Humana 04/21/20 documented as of this encounter
--- OUTSIDE RECORDS SUMMARY | 2025-01-19 10:18 | XMS_ITS | Encounter Summary ---
Author Organization [facility] Address [address] [facility] [place] [address] Care Team Providers Care Director Life Name Role Phone Sven Peng MD Primary Care Provider [phone] Joleen Chu PA Unavailable [phone] Encounter Details Date Type Department Care Team (Late st Contact Info) Description 07/16/2023 Abstract [facility] [place] [facility] 112 [facility] 110 [place] [address] Sven Peng MD 112 [facility] 110 [place] [address] Social History Tobacco Use Types Packs/Day Years [...] PM EDT Office Visit [facility] [place] [facility] [address] [place] [address] Joleen Chu PA [address] [place] [address] 04/12/2025 11:20 AM EST Office Visit [facility] [place] [facility] [address] [place] [address] Annette Bright MD [address] [place] [address] 01/11/2026 11:00 AM EDT Office Visit [facility] [place] [facility] [address] [place] [address] Teodora Chadwick DO [address] [place] [address] documented as of this encounter Visit Diagnoses Not on filedocumented in this encounter Additional Health Concerns Assessment Noted Time PHQ-9 Depression Total Score: 0 07/14/19 9:00 AM EDT documented as of this encounter Care Teams Director Life Relationship Specialty Start Date End Date Sven Peng MD [address] [place] [address] PCP - General Internal Medicine 08/27/22 Joleen Chu PA [address] [place] [address] PCP - Humana 04/21/20 documented as of this encounter
--- OUTSIDE RECORDS SUMMARY | 2025-01-19 10:18 | XMS_ITS | Encounter Summary ---
Author Organization [facility] Address [address] [facility] [place] [address] Care Team Providers Care A/C Tech Name Role Phone Sven Peng MD Primary Care Provider [phone] Joleen Chu PA Unavailable [phone] Encounter Details Date Type Department Care Team (Late st Contact Info) Description 12/26/2022 Abstract [facility] [place] [facility] 112 [facility] 110 [place] [address] Sven Peng MD 112 [facility] 110 [place] [address] Social History Tobacco Use Types Packs/Day Years [...] PM EDT Office Visit [facility] [place] [facility] [address] [place] [address] Joleen Chu PA [address] [place] [address] 04/12/2025 11:20 AM EST Office Visit [facility] [place] [facility] [address] [place] [address] Annette Bright MD [address] [place] [address] 01/11/2026 11:00 AM EDT Office [facility] [address] [place] [address] Teodora Chadwick DO [address] [place] [address] documented as of this encounter Visit Diagnoses Not on filedocumented in this encounter Additional Health Concerns Assessment Noted Time PHQ-9 Depression Total Score: 7 11/12/19 11:00 AM EDT documented as of this encounter Care Teams A/C Tech Relationship Specialty Start Date End Date Sven Peng MD [address] [place] [address] PCP - General Internal Medicine 08/27/22 Joleen Chu PA [address] [place] [address] PCP - Hum[employer] 04/21/20 documented as of this encounter
--- OUTSIDE RECORDS SUMMARY | 2025-01-19 10:18 | XMS_ITS | Encounter Summary ---
Author Organization [facility] Address [address] [facility] [place] [address] Care Team Providers Care Relish Blender Name Role Phone Sven Peng MD Primary Care Provider [phone] Joleen Chu PA Unavailable [phone] Encounter Details Date Type Department Care Team (Late Contact Info) Description 11/12/2022 Abstract [facility] [place] [facility] 112 [facility] 110 [place] [address] Sven Peng MD 112 [facility] 110 [place] [address] Social History Tobacco Use Types Packs/Day Years [...] Encounters Date Type Department Care Team (Late Contact Info) Description 01/20/2025 2:00 PM EDT Office Visit [facility] [place] [facility] 112 [facility] 110 [place] [address] Joleen Chu PA [address] [place] [address] 04/12/2025 11:20 AM EST Office Visit [facility] [place] [facility] [address] [place] [address] Annette Bright MD [address] [place] [address] 01/11/2026 11:00 AM EDT Office Visit [facility] [place] [facility] [address] [place] [address] Teodora Chadwick DO [address] [place], [place] [address] documented as of this encounter Visit Diagnoses Not on filedocumented in this encounter Additional Health Concerns Assessment Noted Time PHQ-9 Depression Total Score: 7 11/12/19 11:00 AM EDT documented as of this encounter Care Teams Relish Blender Relationship Specialty Start Date End Date Sven Peng MD [address] [facility] 110 [place] [address] PCP - General Internal Medicine 08/27/22 Joleen Chu PA [address] [facility] 110 [place] [address] PCP - Humana 04/21/20 documented as of this encounter
--- OUTSIDE RECORDS SUMMARY | 2025-01-19 10:18 | XMS_ITS | Encounter Summary ---
Author Organization [facility] Address [address] [facility] [place] [address] Care Team Providers Care Spool Sander Name Role Phone Sven Peng MD Primary Care Provider [phone] Joleen Chu Unavailable [phone] Encounter Details Date Type Department Care Team [...] 2:00 PM EDT [facility] [address] [place] [address] Joleen Chu PA [address] [place] [address] 04/12/2025 11:20 AM EST Office Visit [facility] [place] [facility] [address] [place] [address] Annette Bright MD [address] [place] [address] 01/11/2026 11:00 AM EDT Office Visit [facility] [address] [place] [address] Teodora Chadwick DO [address] [place] [address] documented as of this encounter Procedures Procedure Name Priority Date/Time Associated Diagnosis Comments XR DEXA AXIAL SKELETON 2024 4:38 AM EDT documented in this encounter Results * XR DEXA AXIAL SKELETON (2024 4:38 AM EDT) Anatomical Region Laterality Modality Other 2024 4:38 AM EDT Narrative 2024 4:40 AM EDT The [address] [address] XRay Report Signed Patient: TEODORA PATEL MR#: [id number] : 1950 Acct:[id number] Age/Sex: 73 / F ADM Date: 01/15/24 Loc: MAMMO Attending Dr: TEODORA CHADWICK Ordering Physician: TEODORA CHADWICK Date of Service: 01/15/24 Procedure(s): XR DEXA axial skeleton Accession Number(s): [id number] cc: SVEN PENG ; TEODORA CHADWICK [place] [id number] Patient Name: TEODORA PATEL MRN: [id number] date: 1950 Sex: F Assigned Patient Location: [facility] Current Patient Location: Accession/Order Number: [id number] Exam Date: 01/15/2024 14:46 Report Date: 2024 04:38 At the request of: TEODORA CHADWICK Procedure: XR DEXA axial skeleton EXAMINATION: XR [...] prevention and treatment of osteoporosis. Osteoporos Int. 2021;3310):5048-8628. doi: 10.1007/s43445-353-89706-i. Epub 2021Aug 16. Erratum in: Osteoporos Int. 2021Nov 15;: PMID: [id number]; PMCID: [id number]. Electronically authenticated by: BRYAN SALGUERO Date: 2024 04:38 Dictated By: Bryan Salguero M.D. Signed By: 01/16/24439 DD/ 7 TD/TT: Splunk Consultant: Procedure Note Radiology, Radiologist, MD - 2024 [place] [address] XRay Report Signed Patient: TEODORA PATEL BMR#: [id number] : 1950cct:[id number] Age/Sex: 73 / FADM Date: 01/15/24 [facility] Dr: TEODORA CHADWICK Ordering Physician: TEODORA CHADWICK Date of Service: 01/15/24 Procedure(s): XR DEXA axial skeleton Accession Number(s): [id number] cc: SVEN PENG ; TEODORA CHADWICK The [address] [address] Patient Name: TEODORA PATEL MRN: [id number] date: 1950 Sex: F Assigned Patient Location: [facility] Current Patient Location: Accession/Order Number: [id number] Exam Date: 01/15/2024 14:46 Report Date: 2024 04:38 At the request of: TEODORA CAHDWICK Procedure: XR DEXA axial skeleton EXAMINATION: XR [...] 10-year hip fracture risk >= 3% or d92-xdia major osteoporosis-related fracture risk >= 20% (i.e., [...] to prevention and treatment of osteoporosis.Osteoporos Int. 2021;33(10):3773-9047. doi: 10.1007/l82240-144-19878-d. Epub . Erratum in: Osteoporos Int. 2021Nov 15;: PMID: [id number]; PMCID: [id number]. Electronically authenticated by: BRYAN SALGUERO Date: 2024 04:38 Dictated By: Bryan Salguero M.D. Signed By:01/16/24439 DD/ 7 TD/TT: Splunk Consultant: us Generic External Data Provider [facility] Final Result documented in this encounter Visit Diagnoses Not on filedocumented in this encounter Additional Health Concerns Assessment Noted Time PHQ-9 Depression Total Score: 0 07/14/19 24 9:00 AM EDT documented as of this encounter Care Teams Spool Sander Relationship Specialty Start Date End Date Sven Peng MD [address] [facility] 110 [place] [address] PCP - General Internal Medicine 08/27/22 Joleen Chu PA [address] [facility] 110 [place] [address] PCP - [employer] 04/21/20 documented as of this encounter
--- OUTSIDE RECORDS SUMMARY | 2025-01-19 10:18 | XMS_ITS | Encounter Summary ---
Author Organization [facility] Address [address] [facility] [place] [address] Care Team Providers Care Stakeholder Manager Name Role Phone Sven Peng MD Primary Care Provider [phone] Joleen Chu PA Unavailable [phone] Encounter Details Date Type Department Care Team (Late st Contact Info) Description 07/27/2024 [facility] [place] [facility] 110 [place] [address] Sven Peng MD 112 [facility] 110 [place] [address] Social History Tobacco Use Types Packs/Day Years [...] week 07/21/2024 How often do you attend [facility] or evangelical services? Never 07/21/2024 Do you belong to [...] Recorded Patient Health Questionnaire-2 Score 0 07/27/2024 [facility] of Occupat ional Health - Occupational [...] any time in the past 12 m [facility], were you homeless or living in a senior care (including now)? No 07/21/2024 Comments Unknown Sex [...] 2:00 PM EDT Office Visit [facility] [address] [facility] 110 [place] [address] Joleen Chu PA [address] [facility] 110 [place] [address] 04/12/2025 11:20 AM EST Office Visit [facility] [address] [place] [address] Annette Bright MD [address] [place] [address] 01/11/2026 11:00 AM EDT Office Visit [facility] [place] [facility] [address] [place] [phone] Teodora Chadwick DO [address] [place] [address] documented as of this encounter Visit Diagnoses Not on filedocumented in this encounter Additional Health Concerns Assessment Noted Time PHQ-9 Depression Total Score: 0 07/14/19 24 9:00 AM EDT documented as of this encounter Care Teams Stakeholder Manager Relationship Specialty Start Date End Date Sven Peng MD [address] [facility] 110 [place] [address] PCP - General Internal Medicine 08/27/22 Joleen Chu PA [address] [facility] 110 [place] [address] PCP - [employer] 04/21/20 documented as of this encounter
--- OUTSIDE RECORDS SUMMARY | 2025-01-19 10:18 | XMS_ITS | Encounter Summary ---
Author Organization [facility] Address [address] [place] [address] Care Team Providers Care Process Operator Name Role Phone Sven Peng MD Primary Care Provider [phone] Joleen Chu PA Unavailable [phone] Encounter Details Date Type Department Care Team (Late st Contact Info) Description 09/29/2024 [facility] [place] [facility] 110 [place] [address] Sven Peng MD 112 [facility] 110 [place] [address] Social History Tobacco Use Types Packs/Day Years [...] week 07/21/2024 How often do you attend [facility] or rastafari services? Never 07/21/2024 Do you belong to any clubs o r organizations such as yazidi groups, unions, fraternal or athletic groups, or [...] Recorded Patient Health Questionnaire-2 Score 0 09/28/2024 [facility] of Occupat ional Health - Occupational [...] in the past [address] [facility], were you homeless or living in a half-way (including now)? No 07/21/2024 Comments Unknown Sex [...] 2:00 PM EDT [facility] [address] [place] [address] Joleen Chu PA [address] [place] [address] 04/12/2025 11:20 AM EST Office Visit [facility] [address] [place] [address] Annette Bright MD [address] [place] [address] 01/11/2026 11:00 AM EDT Office Visit [facility] [address] [place] [address] Teodora Chadwick DO [address] [place] [address] documented as of this encounter Visit Diagnoses Not on filedocumented in this encounter Additional Health Concerns Assessment Noted Time PHQ-9 Depression Total Score: 0 09/29/19 25 12:00 PM EDT documented as of this encounter Care Teams Process Operator Relationship Specialty Start Date End Date Sven Peng MD [address] [email or web address] 110 [place] [address] PCP - General Internal Medicine 08/27/22 Joleen Chu PA [address] [email or web address] [address] [place] [address] PCP - [employer] 04/21/20 documented as of this encounter
--- OUTSIDE RECORDS SUMMARY | 2025-01-19 10:18 | XMS_ITS | Encounter Summary ---
Author Organization [facility] Address [address] [place] [address] Care Team Providers Care Home Health Administrator Name Role Phone Sven Peng MD Primary Care Provider [phone] Joleen Chu PA Unavailable [phone] Encounter Details Date Type Department Care Team (Late st Contact Info) Description 07/20/2024 [facility] [place] [facility] 110 [place] [address] Sven Peng MD 112 [facility] 110 [place] [address] Social History Tobacco Use Types Packs/Day Years [...] week 07/21/2024 How often do you attend [facility] or caodaism services? Never 07/21/2024 Do you belong to [...] Recorded Patient Health Questionnaire-2 Score 2 11/11/2022 [facility] of Occupat ional Health - Occupational Stress [...] any time in the past 12 m [facility], were you homeless or living in [...] 2:00 PM EDT Office Visit [facility] [place] [facility] [address] [place] [address] Joleen Chu PA [address] [place] [address] 04/12/2025 11:20 AM EST Office Visit [facility] [place] [facility] [address] [place] [address] Annette Bright MD [address] [place] [address] 01/11/2026 11:00 AM EDT Office Visit [facility] [address] [place] [address] Teodora Chadwick DO [address] [place] [address] documented as of this encounter Visit Diagnoses Not on filedocumented in this encounter Additional Health Concerns Assessment Noted Time PHQ-9 Depression Total Score: 0 07/14/19 24 9:00 AM EDT documented as of this encounter Care Teams Home Health Administrator Relationship Specialty Start Date End Date Sven Peng MD [address] [facility] 110 [place] [address] PCP - General Internal Medicine 08/27/22 Joleen Chu PA [address] [facility] 110 [place] [address] PCP - [employer] 04/21/20 documented as of this encounter
--- OUTSIDE RECORDS SUMMARY | 2025-01-19 10:18 | XMS_ITS | Encounter Summary ---
Author Organization [facility] Address [address] [facility] [place] [address] Care Team Providers Care Dumpster Operator Name Role Phone Sven Peng MD Primary Care Provider [phone] Joleen Chu Unavailable [phone] Encounter Details Date Type Department Care Team [...] 2:00 PM EDT [facility] [address] [place] [address] Joleen Chu PA [address] [place] [address] 04/12/2025 11:20 AM EST Office Visit [facility] [place] [facility] [address] [place] [address] Annette Bright MD [address] [place] [address] 01/11/2026 11:00 AM EDT Office Visit [facility] [place] [facility] [address] [place] [address] Teodora Chadwick DO [address] [place] [address] documented as of this encounter Procedures Procedure Name Priority Date/Time Associated Diagnosis Comments NM EJ PERF SPECT REST STR 01/13/2024 4:30 PM EDT documented in this encounter Results * NM EJ PERF SPECT REST STR (01/13/2024 4:30 PM EDT) Anatomical Region Laterality Modality Other 01/13/2024 4:30 PM EDT Narrative 01/13/2024 4:30 PM EDT [address] [address] Nuclear Medicine Report Signed Patient: TEODORA PATEL MR#: [id number] : 1950 Acct:[id number] Age/Sex: 73 / F ADM Date: 01/12/24 Loc: [place] Attending Dr: CHRIS GARCIA Ordering Physician: CHRIS GARCIA Date of Service: 01/12/24 Procedure(s): NM ej perf SPECT rest str Accession Number(s): [id number] cc: SVEN PENG ; CHRIS GARCIA Patient Name: TEODORA PATEL MR#: [id number] : 1950 Exam Date: 01/12/2024 Ordering Doctor: [...] Signed By: 01/13/24 1630 DD/ 1630 TD/TT: Hopper Operator: Procedure Note Radiology, Radiologist, MD - 01/13/2024 [place] [address] Nuclear Medicine Report Signed Patient: TEODORA PATEL BMR#: [id number] : 8Acct:[id number] Age/Sex: 73 / FADM Date: 01/12/24 Loc: [place] Attending Dr: CHRIS GARCIA Ordering Physician: CHRIS GARCIA Date of Service: 01/12/24 Procedure(s): NM ej perf SPECT rest str Accession Number(s): [id number] cc: SVEN PENG ; CHRIS GARCIA Patient Name: TEODORA PATEL MR#: [id number] : 1950 Exam Date: 01/12/2024 Ordering Doctor: [...] M.D. Signed By:01/13/24 1630 DD/ 1630 TD/TT: Hopper Operator: us Generic External Data Provider [facility] Final Result documented in this encounter Visit Diagnoses Not on filedocumented in this encounter Additional Health Concerns Assessment Noted Time PHQ-9 Depression Total Score: 0 03/25/20 24 9:00 AM EDT documented as of this encounter Care Teams Dumpster Operator Relationship Specialty Start Date End Date Sven Peng MD [address] [facility] 110 [place] [address] PCP - General Internal Medicine 08/27/22 Joleen Chu PA [address] [facility] 110 [place] [address] PCP - [employer] 04/21/20 documented as of this encounter
--- OUTSIDE RECORDS SUMMARY | 2025-01-19 10:18 | XMS_ITS | Clinical Summary ---
Author Organization [facility] Address [address] [place] [address] Care Team Providers Care Barrel Handler Name Role Phone Sven Peng MD Primary Care Provider Joleen Chu Unavailable [phone] Allergies Active Allergy Reactions Criticality Noted Date Comments Hydrocodone Hives 07/31/2018 Can take as needed, gets itching if takes as prescribed on hourly basis Oxycodone Hives,Itching,Rash Low 07/31/2018 Other Reaction(s): itching, hives Itching, hives Sulfa Antibiotics Anaphylaxis,Hives,It ch ing,Rash,Shortness of breath,Swelling High 07/31/2018 Other Reaction(s): hives, swelling Itching, throat swelling, hives Medications Multiple Vitamins-Mineral s (Centrum Silver) chewable tablet every 12 (twelve) hours. Active aspirin 81 MG chewable tablet Chew 1 tablet twice a day by oral route. Active cyanocobalamin (Vitamin B-12) 100 MCG tablet Vitamin B12 Act conchis fluticasone (Flonase) 50 MCG/ACT nasal spray Administer 1 spray into each nostril Daily Shake gently. Before first use, prime pump. After use, clean tip and replace cap. Active nystatin (Mycostatin) [id number] UNIT/GM powderIndication s:Erythema intertrigo Apply to the affected area, once daily, 30 day supply 60 g 11 04/16/20 24 Active PARoxetine (Paxil) 20 MG tabletIndication s:Current moderate episode of major depressive disorder without prior episode (HCC) TAKE 1 TABLET BY MOUTH EVERY DAY IN THE MORNING 100 tablet 3 05/25/19 25 Active Ascorbic Acid (Vitamin C) 500 MG capsule Take by mouth Activ e LORazepam (Ativan) 0.5 MG tabletIndication s:Anxiety Take 1 tablet (0.5 mg) by mouth every 6 (six) hours if needed for anxiety for up to 14 days 28 tablet 08/07/19 25 Active metoprolol succinate XL (Toprol-XL) 50 MG 24 hr tablet TAKE 1 TABLET BY MOUTH EVERY DAY DIRECTED. DO NOT CRUSH OR CHEW 10/01/19 25 Active irbesartan (Avapro) 150 MG tabletIndication s:Primary hypertension TAKE 1 TABLET BY MOUTH EVERY DAY 100 tablet 3 12/30/19 25 Active irbesartan (Avapro) 150 MG tabletIndication s:Primary hypertension TAKE 1 TABLET BY MOUTH EVERY DAY FOR 100 DAYS 90 tablet 4 11/03/19 24 025 Discontinued baclofen (Lioresal) 10 MG tablet TAKE 1/2 TO 1 TABLET BY MOUTH TWICE A DAY NEEDED 04/05/20 24 025 Discontinued gabapentin (Neurontin) 100 MG capsule Take 100 mg by mouth in the morning and 100 mg in the evening and 100 mg before bedtime. 10/01/19 25 025 Discontinued Active Problems Problem Noted Date Diagnosed Date [...] (11/10/2022): Added automatically from request for surgery [id number] Added automatically from request for surgery [id number] Intermittent palpitations 02/25/2022 Overview (11/10/2022): Last Assessment [...] Sjogren's, bilateral 11/10/2022 09/28/2024 Reactive airway disease 10/26/2020 032 08/2023 Internal derangement of right shoulder 03/20/2020 09/28/2024 History of artificial joint 10/20/2019 07/14/2023 Obesity 08/04/2018 11/11/2022 Gastroesophageal reflux disease 07/29/2018 07/14/2023 Dyspepsia 07/13/2018 09/28/2024 Encounters Date Type Department Care Team Description 01/18/2025 Travel 12/30/2024 11:00 AM EDT Office Visit [facility] [address] [place] [address] Teodora Chadwick, DO Vaginal atrophy; Encounter for screening mammogram for breast cancer 12/30/2024 Bamboo flowsheet [facility] [address] [place] [address] Teodora Chadwick, 12/30/2024 Travel 12/29/2024 Refill [facility] [address] [place] [address] Sven Peng MD Primary hypertension 11/16/2024 1:15 PM EDT Office Visit [facility] [place] [address] Den Fiore PA History of left hip replacement (Primary Dx); Left hip pain; Acute bilateral low back pain without sciatica 11/16/2024 12:55 PM EDT Ancillary Procedure [facility] [place] [address] 11/16/2024 Bamboo flowsheet [facility] [address] [place], [place] [address] [address] Den Fiore PA 11/16/2024 Travel from Last 3 Months Immunizations Immunization Administration Dates Next Due DTP 04/05/2022 Influenza, High Dose Seasona l, Preservative Free 03/25/2022,01/28/2019,02/13/2018 Influenza, High-dose Seasona l, Quadrivalent, Preservative Free 01/28/2024,01/25/2021,02/12/2017 Influenza, Seasonal, Quadriv alent, Adjuvanted 02/05/2023,02/25/2020 Pneumococcal Conjugate PCV 13 01/08/2018 Pneumococcal Polysaccharide PPSV23 10/11/2019 RSV, recombinant, protein verdin bunit RSVpreF, adjuvant reconstitu, 120mcg/0.5mL, PF (Arexvy) 06/25/2024 Zoster, Recombinant 06/06/2019 Zoster, live 01/27/2002 Family History Medical History Relation Name Comments Heart failure Brother Suleman Alcohol abuse Father Pernicious anemia Father Alzheimer's disease Mother Mariah Hypertension Mother Mariah Suicidality Paternal Grandfather Heart disease Sibling Heart failure Sister 1 Mey Putnam Hypertension Sister 2 Indy Mathias Migraines Sister 3 Indy Stroke Sister 4 Mey Relation Name Status Comments Brother Suleman Father Mother Mariah Paternal Grandfather Sibling Alive Sister 1 Mey Putnam Sister 2 Indy Mathias Sister 3 Indy Sister 4 Mey Social [...] 07/21/2024 How often do you attend chur or anabaptist services? Never 07/21/2024 Do you belong to any clubs o r organizations such as catholic groups, unions, fraternal or athletic groups, or [...] Recorded Patient Health Questionnaire-2 Score 0 09/28/2024 [facility] of Occupat ional Health - Occupational Stress [...] were you homeless or living in a [place] health care facility (including now)? No 07/21/2024 Comments Unknown Sex and Gender Information Value Date Recorded Sex Assigned at Female 09/06/2022 3:19 PM EDT Legal Sex Female 8:26 PM EDT Gender Identity Female 09/06/2022 3:19 PM EDT Sexual Orientation Straight 09/06/2022 3: 19 PM EDT Last Filed Vital Signs Vital Sign Reading Time Taken Comments Blood Pressure 128/70 12/30/2024 10:59 AM EDT Pulse 64 10/15/2024 8:37 AM EDT Temperature - - Respiratory Rate 16 09/28/2024 1:11 PM EDT Oxygen Saturation 95% 10/15/2024 8:37 AM EDT Inhaled Oxygen Concentration - - Weight 93.4 kg (206 lb) 12/30/2024 10:59 AM EDT Height 158.8 cm (5' 2.5 ) 10/15/2024 8:37 AM EDT Body Mass Index 37.08 10/15/2024 8:37 AM EDT Plan of Treatment Upcoming Encounters Date Type Department Care Team (Late st Contact Info) Description 01/20/2025 2:00 PM EDT Office Visit [facility] [place] [facility] [address] [place] [address] Joleen Chu PA [address] [place] [address] 04/12/2025 11:20 AM EST Office Visit [facility] [address] [place] [address] Annette Bright MD [address] [place] [address] 01/11/2026 11:00 AM EDT Office Visit [facility] [address] [place] [address] Teodora Chadwick DO [address] [place] [address] Health Maintenance Due Date Last Done Comments Influenza Vaccine (#1) 2024 4, 02/05/2023, 03/25/2022, Additional history exists Medicare Annual Wellness (AWV) 09/28/2025 0 09/28/2024, 12/23/2023, 07/14/2023, Additional history exists Colonoscopy Discontinued 01/30/2018 Colorectal Cancer Screening Discontinued Pneumococcal Vaccine: 65+ Years Completed 0, 01/08/2018 Mammogram Discontinued 2024, 12/21, 12/19/2022, Additional history exists CT Colonography Discontinued FIT-DNA Discontinued FIT Discontinued FOBT Discontinued Sigmoidoscopy Discontinued Procedures Procedure Name Priority Date/Time Associated Diagnosis Comments XR HIP 2 OR 3 VW LEFT Routine 11/16/2024 12:54 PM EDT Left hip pain BI MAMMOGRAM SCREENING TOMOSYNTHESIS BILATERAL Routine 2024 8:33 AM EDT Encounter for screening mammogram for breast cancer COLONOSCOPY Routine 01/30/2018 12:00 PM EDT from Last 3 Months or Most Recently Relevant to Health Maintenance Results * XR hip left 2 or 3 views (11/16/2024 12:54 PM EDT) Anatomical Region Laterality Modality Lower Extremities, Hip Left Radiograp hic Imaging Narrative 11/16/2024 1:40 PM EDT Imaging Result: AP and lateral of left hip: Acceptable position and alignment of left total hip arthroplasty. There was no evidence of loosening of the acetabular cup or femoral stem. Femoral head was well centered in the acetabular liner without evidence of asymmetric or accelerated wear. There was no gross evidence of fracture and/or dislocation. Impression: Unremarkable left total hip arthroplasty. us Den DALEY IMG XR PROCEDURES Final Resul t * Bilateral screening mammogram with tomosynthesis (2024 8:33 AM EDT) us Teodora Chadwick DO IMG BI PROCEDURES Final Res ult * Colonoscopy (01/30/2018 12:00 PM EDT) Anatomical Region Laterality Modality Endoscopy 01/30/2018 12:0 0 PM EDT Narrative 01/30/2018 12:00 PM EDT PERFORMED AT [facility] LOCATION:[id number] IBS,[email or web address] Procedure Note CONVERSION, GENERIC - 09/04/2022 PERFORMED AT [facility] LOCATION:[id number] IBS,[email or web address].[email or web address] Guerita Hunter MD ENDOSCOPY PROCEDURE ORDERABLE S Final Result from Last 3 Months or Most Recently Relevant to Health Maintenance Insurance [employer] MEDICARE ADVANTAGE Care Teams Barrel Handler Relationship Specialty Start Date End Date Sven Peng MD [address] [facility] [address] [place] [address] PCP - General Internal Medicine 08/27/22 Joleen Chu PA [address] [place] [address] PCP - [employer] 04/21/20
--- OUTSIDE RECORDS SUMMARY | 2025-01-19 10:18 | XMS_ITS | Encounter Summary ---
Author Organization [facility] Address [address] [facility] [place] [address] Care Team Providers Care Nut Sheller Machine Operator Name Role Phone Sven Peng MD Primary Care Provider [phone] Joleen Chu Unavailable [phone] Encounter Details Date Type Department Care Team [...] 2:00 PM EDT [facility] [address] [place] [address] Joleen Chu PA [address] [place] [address] 04/12/2025 11:20 AM EST Office Visit [facility] [place] [facility] [address] [place] [address] Annette Bright MD [address] [place] [address] 01/11/2026 11:00 AM EDT Office Visit [facility] [facility] [address] [place] [address] Teodora Chadwick MalikDO [address] [place] [address] documented as of this encounter Procedures Procedure Name Priority Date/Time Associated Diagnosis Comments MR LUMBAR SPINE WO CON 01/22/2024 2:44 PM EDT documented in this encounter Results * MR LUMBAR SPINE WO CON (01/22/2024 2:44 PM EDT) Anatomical Region Laterality Modality Other 01/22/2024 2:44 PM EDT Narrative 01/22/2024 2:46 PM EDT The [address] [address] Magnetic Resonance Report Signed Patient: TEODORA PATEL MR#: [id number] : 1950 Acct:[id number] Age/Sex: 74 / F ADM Date: 01/22/24 Loc: MRI Attending Dr: Christofer Mathew NP Ordering Physician: Christofer Mathew NP Date of Service: 01/22/24 Procedure(s): MR lumbar spine wo con Accession Number(s): [id number] cc: SVEN PENG ; Christofer Mathew NP [place] [address] Patient Name: TEODORA PATEL MRN: [facility]:[id number] date: 1950 Sex: F Assigned Patient Location: MRI Current Patient Location: MRI Accession/Order Number: [id number] Exam Date: 01/22/2024 13:00 Report Date: 01/22/2024 [...] Webster M.D. Signed By: 01/22/24 1446 DD/ 1444 TD/TT: Director Product Safety: Procedure Note Radiology, Radiologist, - 01/22/2024 [place] [address] Magnetic Resonance Report Signed Patient: TEODORA PATEL BMR#: [id number] : 1950cct:[id number] Age/Sex: 74 / FADM Date: 01/22/24 Loc: MRI Attending Dr: Christofer Mathew NP Ordering Physician: Christofer Mathew NP Date of Service: 01/22/24 Procedure(s): MR lumbar spine wo con Accession Number(s): [id number] cc: SVEN PENG ; Christofer Mathew NP [place] [address] Patient Name: TEODORA PATEL MRN: [facility]:[id number] date: 1950 Sex: F Assigned Patient Location: MRI Current Patient Location: MRI Accession/Order Number: [id number] Exam Date: 01/22/2024 13:00 Report Date: 01/22/2024 [...] M.D. Signed By:01/22/24 1446 DD/ 1444 TD/TT: Director Product Safety: Generic External Data Provider [facility] Final Result documented in this encounter Visit Diagnoses Not on filedocumented in this encounter Additional Health Concerns Assessment Noted Time PHQ-9 Depression Total Score: 0 07/14/19 24 9:00 AM EDT documented as of this encounter Care Teams Nut Sheller Machine Operator Relationship Specialty Start Date End Date Sven Peng MD [address] [facility] 110 [place] [address] PCP - General Internal Medicine 08/27/22 Joleen Chu PA [address] [facility] 110 [place] [address] PCP - [employer] 04/21/20 documented as of this encounter
--- NOTE | 2025-01-19 10:23 | MM_ITS ---
Patient Name: YAO PATEL MR#: [id number] : 1950 Exam Date: 01/19/2025 Ordering Doctor: NON-STAFF PHYSICIAN RADIOLOGY REPORT PROCEDURE: MM TOMOSYNTHESIS SCREENING BI COMPARISON: MM TOMOSYNTHESIS SCREENING BI, 01/15/2024. MM TOMOSYNTHESIS SCREENING BI, 12/19/2022. MG MAMM SCREEN 3D SHARAD CAD, 12/07/2021. MG MAMM SCREEN SHARAD W CAD, 08/01/2010. INDICATIONS: Screening Calculator Name NCI Breast Cancer Risk Assessment Tool 5 Year Breast Cancer Risk 2.10% Lifetime Breast Cancer Risk 4.00% Personal Breast Cancer No Personal Ovarian Cancer No Treatments None Family Cancers Sister with uterine cancer at age ~60. LOCATION: [facility] BREAST COMPOSITION: There are scattered areas of fibroglandular density. FINDINGS: DIAGNOSTIC CATEGORY 1--NEGATIVE. RIGHT BREAST: No significant suspicious finding. LEFT BREAST: No significant suspicious finding. RECOMMENDATIONS: ROUTINE MAMMOGRAM AND CLINICAL EVALUATION IN 12 MONTHS. Dictated by: Elio Foreman DO on 01/19/2025 at 15:25 Approved by: Elio Foreman DO on 01/19/2025 at 15:26
== END 2025-01-19 10:15 | disposition home or self-care (01) ==
LOC: MAMMO 10:15
PROVIDERS: PCP Internal Medicine
DX: Z12.31 Encounter for screening mammogram for malignant neoplasm of breast (principal); Z80.8 Family history of malignant neoplasm of other organs or systems
CPT/HCPCS: 77063; 77067

== ENCOUNTER 2025-01-27 09:11 | Outpatient (OUT) | payer MEDICARE, SELFPAY ==
--- OUTSIDE RECORDS SUMMARY | 2025-01-27 09:16 | XMS_ITS | CCD ---
Author Organization 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 Name Role Phone UNKNOWN, PHYSICIAN Referring Unavailable UNKNOWN, PHYSICIAN Primary Care Unavailable MOUKARBEL, CHRIS V Admitting Unavailable MOUKARBEL, CHRIS V Attending Unavailable Staci Esquivel Unavailable ABDIAS ., ASHTYN Admitting Unavailable ABDIAS ., ASHTYN Attending Unavailable ANNA .THUY Consulting Unavaileuegne e FROYLAN, DR BOSS Primary Care Unavailable JESUS FELIZ Consulting Unavailable DEVIN ., DR DARYL Juarez Attending Unavailable BELTRAN ., DR DARYL Juarez Admitting Unavailable FROYLAN, DR BOSS Primary Care Unavailable FROYLAN, DR BOSS Consulting Unavailable JULIO WOO Consulting Unavailable LAKSHMIPATHY, NARENDRANATH Admitting Unava ilable PENG, DR BOSS Primary Care Unavailable LAKSHMIPATHConnor, OVIDIO Attending Unava ilable FROYLAN, DR BOSS Admitting Unavailable FROYLAN, DR [...] Unavailable Sven Peng MD Primary Care Provider Silvia MOE, Lala Villanueva Attending Unavailable Silvia MOE, Lala Villanueva Attending Unavailable Joleen Lovett Unavailable JOLEEN COURTNEY Attending Unavailable JOLEEN COURTNEY Attending Unavailable JOLEEN COURTNEY Attending Unavailable JOLEEN COURTNEY Attending Unavailable RAMIRO FIORE Attending Unavailable RAMIRO FIORE Referring Unavailable YAA DUKE Attending Unavailable JOLEEN COURTNEY Attending Unavailable AFIA POWERS Attending Unavailable LINDSEY RAYMUNDO H Attending Unavailable JOSE BRIGHT Attending Unavailable LINDSEY RAYMUNDO H Attending Unavailable TEODORA CHADWICK Attending Unavailable JOLEEN COURTNEY Attending Unavailable EMRE, KARY Referring Unavailable EMRE, KARY Referring Unavailable EMRE, KARY Attending Unavailable LUIS ENRIQUE ARVIZU Attending Unavailable CHRIS CHACKO Attending Unavailable CHRIS CHACKO Attending Unavailable Allergies Allergy Classification Reported Allergen(s) Allergy Type Date of Onset Reaction(s) Facility (20 sources) oxyCODONE Drug Allergy 08-01-19 19 hives, Itching, Rash [facility] Other (1 source) Sulfacetamide Drug Allergy neck swelled, hives [facility] Other (2 sources) oxyCODONE Drug Allergy [facility] Repository (2 sources) Sulfonamides (Antibiotic) Drug allergy (disorder) [facility] Repository (20 sources) HYDROcodone; Translations: [HYDROCODONE] Drug Allergy 08-01-19 19 Hives [facility] Work Phone: (20 sources) Sulfonamides (Antibiotic) Drug Intolerance 08-01-19 19 Anaphylaxis, Hives, Itching, Rash, Shortness of breath, Swelling [facility] Healthcare (1 source) Sulfonamides (Antibiotic); Translations: [SULFA (SULFONAMIDE ANTIBIOTICS)] Propensity to adverse reactions to drug (disorder) 12-26-19 [facility] Repository Medications Current Medications Medication Drug Class(es) Dates Sig (Normalized) Sig (Original) amoxicillin 875 mg / clavulanate 125 mg oral tablet (1 source) Penicillin-class Antibacterial Start: 02-08-2022 take 1 tablet by mouth every twelve hours Amoxicillin-Pot Clavulanate 875-125 MG 1 tablet Orally every 12 hrs for 10 day(s) Jan, Active ascorbic acid 500 mg oral capsule (20 sources) Vitamin C Ascorbic Acid (Vitamin C) 500 MG capsule Take by mouth Active End: 02-11-2024 Ascorbic Acid (vitamin C) 10 00 MG tablet 1 (one) time each day at the same time. 02/11/2024 Discontinued (Therapy completed) aspirin 81 mg chewable tablet (20 sources) Platelet Aggregation Inhibitor, Nonsteroidal Anti-inflammatory Drug take 1 tablet by mouth twice daily aspirin 81 MG chewable tablet Chew 1 tablet twice a day by oral route. Active Baby Aspirin Act conchis calcium carbonate 1500 mg oral tablet (13 sources) End: 02-11-2024 calcium carbonate 1500 (600 Ca) MG tablet every 12 (twelve) hours. 02/11/2024 Discontinued (Therapy completed) cholecalciferol 0.05 mg oral capsule (20 sources) Vitamin D End: 07-27-2024 cholecalciferol (Vitamin D-3) 50 MCG (2000 UT) capsule 1 capsule 1 (one) time each day at the same time. 07/27/2024 Discontinued (Therapy completed) cyclobenzaprine hydrochloride 10 mg oral tablet (20 sources) Muscle Relaxant Start: 11-13-2023 End: 06-23-2024 take 1 tablet by mouth at bedtime cyclobenzaprine (Flexeril) 10 MG tablet Take 10 mg by mouth at bedtime 11/13/2023 06/23/2024 Discontinued (Other) cycloSPORINE (Restasis) 0.05 % ophthalmic emulsion (20 sources) End: 07-27-2024 take 1 drop(s) into the eye(s) twice daily cycloSPORINE (Restasis) 0.05 % ophthalmic emulsion instill 1 drop into both eyes twice a day as directed 07/27/2024 Discontinued (Therapy completed) take 1 drop(s) into the eye(s) twice daily cycloSPORINE (Restasis) 0.05 % ophthalmi c emulsion instill 1 drop into both eyes twice a day as directed Active DULoxetine 30 mg delayed release oral capsule (2 sources) Serotonin and Norepinephrine Reuptake Inhibitor Start: 01-20-2025 take 1 capsule by mouth once daily DULoxetine (Cymbalta) [address] capsule Indications: Current mild episode of major depressive disorder without prior episode Take 1 capsule (30 mg) by mouth Daily Do not crush or chew. 30 capsule 2 01/20/2025 Active fexofenadine (1 source) Histamine-1 Receptor Antagonist Carolin Active fluticasone propionate 0.05 mg/actuat metered dose nasal spray (20 sources) Corticosteroid take 1 spray(s) nasal route once daily fluticasone (Flonase) 50 MCG/ACT nasal spray Administer 1 spray into each nostril Daily Shake gently. Before first use, prime pump. After use, clean tip and replace cap. Active Flonase Active irbesartan 150 mg oral tablet (20 sources) Angiotensin 2 Receptor Everett Start: 12-29-2024 take 1 tablet by mouth once daily irbesartan (Avapro) 150 MG tablet Indications: Primary hypertension TAKE 1 TABLET BY MOUTH EVERY DAY 100 tablet 3 12/29/2024 Active Start: 11-03-2023 take 1 tablet by filomena th once daily irbesartan (Avapro) 150 MG tablet Indications: Primary hypertension TAKE 1 TABLET BY MOUTH EVERY DAY FOR 100 DAYS 90 tablet 4 11/03/2023 Active Irbesartan-hydroCHLOROthiazi de (1 source) Irbesartan-hydro CHLOROthiazide Active lifitegrast (1 source) Lymphocyte Function-Assoc iated Antigen-1 Antagonist Xiidra Active LORazepam 0.5 mg oral tablet (20 sources) Benzodiazepine S t a r t : 0 4 - 1 8 - 2 0 2 5 E n d : 0 5 - 0 2 - 2 0 2 5 take 1 tablet by mouth every six hours as needed for anxiety and anxiety and anxiety LORazepam (Ativan) 0.5 MG tablet Indications: Anxiety Take 1 tablet (0.5 mg) by mouth every 6 (six) hours if needed for anxiety for up to 14 days 28 tablet 08/06/2024 Active 24 hr metoprolol succinate 5 0 mg extended release oral tablet (20 sources) beta-Adrenergi c Everett S t a r t : 0 6 - 1 2 - 2 0 2 5 take 1 tablet by mouth once daily metoprolol succinate XL (Toprol-XL) 50 MG 24 hr tablet TAKE 1 TABLET BY MOUTH EVERY DAY DIRECTED. DO NOT CRUSH OR CHEW 09/30/2024 Active Start: 09-09-2022 End: 10-15-2024 take 1.5 tablets by mouth once daily metoprolol succinate XL (Toprol-XL) 25 MG 24 hr tablet Take 1.5 tablets by mouth Daily Dosing per Cardiology 09/09/2022 10/15/2024 Discontinued (Other) Start: 09-09-2022 take 1 tablet by filomena th every twenty-four hours in the morning metoprolol succinate XL (Toprol-XL) 25 MG 24 hr tablet Take 1 tablet by mouth in the morning. 09/09/2022 Active Toprol XL Active Multiple Vitamins-Minerals (Centrum Silver) chewable tablet (20 sources) Multiple Vitamins-Minerals (Centrum Silver) chewable tablet every 12 (twelve) hours. Active nystatin 100 unt/mg topical powder (20 sources) Polyene Antifungal Start: 2023 End: 2024 nystatin (Mycostatin) 710987 UNIT/GM powder Indications: Erythema intertrigo Apply to the affected area, once daily, 30 day supply 60 g 11 04/16/2024 Active ofloxacin 3 mg/ml otic solution (3 sources) Quinolone Antimicrobial Start: 2024 End: 2024 ofloxacin (Floxin) 0.3 % otic solution Indications: Chronic myringitis of right ear 4 drops in affected ear 2 times daily for 7 days 5 mL 05/24/2024 06/23/2024 Discontinued (Therapy completed) oxybutynin (1 source) Cholinergic Muscarinic Antagonist Oxybutynin Active microencapsulated potassium chloride 10 meq extended release oral tablet (2 sources) Start: 2024 take 1 tablet by mouth once daily potassium chloride CR (Klor-Con M10) 10 MEQ ER tablet Indications: Bilateral lower extremity edema Take 1 tablet (10 mEq) by mouth Daily Do not crush or chew. 30 tablet 2 01/20/2025 Active predniSONE 20 mg oral tablet (1 source) Start: 2021 take 1 tablet by mouth every twelve hours predniSONE 20 MG 1 tablet Orally 2 times a day for 5 day(s) Jan, Active tiZANidine (1 source) Central alpha-2 Adrenergic Agonist tiZANidine HCl Activ e torsemide 10 mg oral tablet (2 sources) Loop Diuretic Start: 2024 take 1 tablet by mouth once daily torsemide (Demadex) 10 MG tablet Indications: Bilateral lower extremity edema Take 1 tablet (10 mg) by mouth Daily 30 tablet 2 01/20/2025 Active vitamin b12 0.1 mg oral tablet (20 sources) Vitamin B12 cyanocobalamin ( Vitamin B-12) 100 MCG tablet Vitamin B12 Active Completed/Discontinued Medications Medication Drug Class(es) Dates Sig (Normalized) Sig (Original) baclofen 10 mg oral tablet (20 sources) gamma-Aminobutyric Acid-ergic Agonist Start: End: take 0.5-1 tablets by mouth twice daily as needed baclofen (Lioresal) 10 MG tablet TAKE 1/2 TO 1 TABLET BY MOUTH TWICE A DAY NEEDED 04/05/2024 12/30/2024 Discontinued 12 hr fexofenadine hydrochloride 60 mg / [...] chew, or split. 01/28/2024 Discontinued (Therapy completed) gabapentin 100 mg oral capsule (8 sources) Anti-epileptic Agent Start: End: take 1 capsule by mouth in the morning, then take 1 capsule by mouth in the evening, then take 1 capsule by mouth at bedtime gabapentin (Neurontin) 100 MG capsule Take 100 mg by mouth in the morning and 100 mg in the evening and 100 mg before bedtime. 09/30/2024 12/30/2024 Discontinued 1 ml methylPREDNISolone acetate 80 mg/ml injection (18 sources) Corticosteroid Start: End: methylPREDNISolone acetate (DEPO-Medrol) injection 80 mg Start: 01-21-2025 End: 01-21-2025 methylPREDNISolone acetate ( DEPO-Medrol) injection 80 mg Start: 01-21-2025 End: 01-21-2025 methylPREDNISolone acetate ( DEPO-Medrol) injection 80 mg Start: 01-21-2025 End: 01-21-2025 methylPREDNISolone acetate ( DEPO-Medrol) injection 80 mg Start: 01-21-2025 End: 01-21-2025 80 mg, Injection, Once, On F ri 01/21/25 at 0800, For 1 dose, RT Knee Start: 01-21-2025 End: 01-21-2025 80 mg, Injection, Once, On F ri 01/21/25 at 0800, For 1 dose, RT Knee Start: 01-21-2025 End: 01-21-2025 80 mg, Intra-articular, Once , On Fri01/21/25 at 0800, For 1 dose, LT Knee Start: 01-21-2025 End: 01-21-2025 80 mg, Intra-articular, Once , On Fri01/21/25 at 0800, For 1 dose, LT Knee Start: 10-15-2024 End: 10-15-2024 methylPREDNISolone acetate ( DEPO-Medrol) injection 80 mg Start: 10-15-2024 End: 10-15-2024 80 mg, Injection, Once, On F ri 10/15/24 at 0930, For 1 dose Start: 10-15-2024 End: 10-15-2024 methylPREDNISolone acetate ( DEPO-Medrol) injection 80 mg Start: 10-15-2024 End: 10-15-2024 80 mg, Injection, Once, On F ri 10/15/24 at 0930, For 1 dose Start: 06-23-2024 End: 06-23-2024 methylPREDNISolone acetate ( DEPO-Medrol) injection 80 mg Start: 06-23-2024 End: 06-23-2024 80 mg, Injection, Once, On W ed 06/23/24 at 1130, For 1 dose Start: 01-26-2024 End: 01-26-2024 methylPREDNISolone acetate ( DEPO-Medrol) injection 40 mg Start: 01-26-2024 End: 01-26-2024 40 mg, Intra-articular, Once PRN Procedure, Starting on 01/26/24 at 1044, For 1 dose PARoxetine hydrochloride 20 mg oral tablet (20 sources) Serotonin Reuptake Inhibitor Start: 03-06-2023 End: 01-20-2025 take 1 tablet by mouth once daily in the morning PARoxetine (Paxil) 20 MG tablet Indications: Current moderate episode of major depressive disorder without prior episode (HCC) TAKE 1 TABLET BY MOUTH EVERY DAY IN THE MORNING 100 tablet 3 05/25/2024 01/20/2025 Discontinued pregabalin 50 mg oral capsule (2 sources) Start: 11-04-2024 End: 01-20-2025 take 1 capsule by mouth in the morning pregabalin (Lyrica) 50 MG capsule Take 50 mg by mouth in the morning and 50 mg before bedtime. 11/04/2024 01/20/2025 Discontinued (Side effects) zinc gluconate 50 mg oral tablet (8 sources) End: 01-28-2024 zinc gluconate 50 MG tablet 1 (one) time each day at the same time. 01/28/2024 Discontinued (Other) Problems Active Problems Problem Classification Problem Date Documented Date Episodic/Chronic Administrative/soci al admission (2 sources) Patient encounter status; Translations: [Other specified counseling] 09-28-2024 Episodic Anxiety disorders (4 sources) Anxiety; Translations: [Anxiety disorder, unspecified] 08-06-2024 Chronic Asthma (20 sources) Reactive airway disease; Translations: [Unspecified asthma, uncomplicated] Onset: 1 Resolved: 4 07-14-2023 Chronic Cardiac dysrhythmias (6 sources) Supraventricular tachycardia; Translations: [Supraventricular tachycardia, unspecified (CMS/HCC)] Onset: 5 01-28-2024 Chronic Diseases of white blood cells (2 sources) Leukocytosis; Translations: [Elevated white blood cell count, unspecified] 07-27-2024 Chronic Essential hypertension (20 sources) Essential hypertension; [...] not specified as Sjogren's, bilateral] Onset: 3 Resolved: 5 11-10-2022 Chronic Menopausal disorders (20 sources) Other primary ovarian failure; Translations: [Decreased estrogen level] Onset: 2 Chronic Mood disorders (6 sources) Moderate major depression, single episode; Translations: [Major depressive disorder, single episode, moderate] Onset: 5 01-28-2024 Chronic Nonspecific chest pain (2 sources) Atypical chest pain; Translations: [Other chest pain] 07-27-2024 Episodic Osteoarthritis (20 sources) Arthritis of right knee; [...] loss, bilateral] Onset: 8 11-10-2022 Chronic Other ear and sense organ disorders (1 source) Chronic right myringitis; Translations: [Chronic myringitis, right ear] 05-24-2024 Chronic Other eye disorders (4 sources) Eyelid [...] Translations: [Cough] Episodic Other non-traumatic joint disorders (3 sources) Pain in right knee; Translations: [Pain in joint, lower leg] 01-26-2024 Episodic Other non-traumatic joint disorders (2 sources) Hip pain; Translations: [Pain in left hip] 11-16-2024 Episodic Other nutritional; endocrine; and metabolic disorders (20 sources) Obese class I; Translations: [Obesity (BMI 30.0-34.9)] Onset: 3 11-10-2022 Chronic Other nutritional; endocrine; and metabolic disorders (1 source) Obesity caused by energy imbalance; Translations: [Morbid (severe) obesity due to excess calories] 06-23-2024 Chronic Other nutritional; endocrine; and metabolic disorders (4 sources) Weight increased; Translations: [Abnormal weight gain] 01-28-2024 Episodic Other screening for suspected conditions (not mental disorders or infectious disease) (9 sources) Encounter for screening mammogram for malignant neoplasm of breast; Translations: [Patient encounter status] Onset: 2 12-18-2023 Episodic Other skin disorders (2 sources) Seborrheic keratosis; Translations: [Other seborrheic keratosis] 04-12-2024 Episodic Other skin disorders (2 sources) Lentiginosis; Translations: [Other melanin hyperpigmentation] 04-12-2024 Episodic Other skin disorders (2 sources) Inflamed seborrheic keratosis; Translations: [Inflamed seborrheic keratosis] 04-12-2024 Episodic Other upper respiratory disease (20 sources) Allergic rhinitis; Translations: [Allergic rhinitis, unspecified] Onset: 8 11-10-2022 Chronic Other upper respiratory disease (2 sources) Allergic rhinitis due to pollen; Translations: [Allergic rhinitis due to pollen] 09-28-2024 Chronic Other upper respiratory infections (1 source) Acute sinusitis, unspecified Episodic Estela-; endo-; and myocarditis; cardiomyopathy (except that caused by tuberculosis or sexually transmitted disease) (20 sources) Hypertrophic obstructive cardiomyopathy; Translations: [Obstructive hypertrophic cardiomyopathy] Onset: 3 11-10-2022 Chronic Pulmonary heart disease (16 sources) Pulmonary hypertension; Translations: [Pulmonary hypertension, unspecified] Onset: 5 09-28-2024 Chronic Residual codes; unclassified (20 sources) Bilateral lower limb edema; Translations: [Localized edema] Onset: 3 11-10-2022 Episodic Spondylosis; intervertebral disc disorders; other back problems (20 sources) Other spondylosis with radiculopathy, lumbar region; Translations: [Prolapsed lumbar intervertebral disc] Onset: 8 Chronic Systemic lupus erythematosus and connective tissue disorders (20 sources) Sjogren's syndrome; Translations: [Sicca syndrome, unspecified] Onset: 2 11-10-2022 Chronic Unclassified (2 sources) Consult; Translations: [Consult] Onset: Past or Other Problems Problem Classification Problem Date Documented Date Episodic/Chronic Abdominal pain (20 sources) Indigestion; Translations: [Epigastric pain] Onset: 07-13-2018 Resolved: 09-28-2024 11-10-2022 Episodic Cardiac dysrhythmias (20 sources) Intermittent [...] disorders (20 sources) Mood disorders Onset: 07-14-2023 Resolved: 09-28-2024 07-14-2023 Open wounds of extremities (4 sources) Laceration without foreign body of left middle finger without damage to nail, initial encounter; Translations: [LAC W/O FB LT MF W/O DMG NAIL INIT] Onset: 04-05-2022 Episodic Other aftercare (1 source) 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; Translations: [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 [employer] 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 DRUG THERAPY] Onset: 04-09-2022 Episodic Other [...] 11-10-2022 11-10-2022 Episodic Other lower respiratory disease (20 sources) Dyspnea on exertion; Translations: [Other forms of dyspnea] Onset: 07-27-2024 07-27-2024 Episodic Other lower respiratory disease (2 sources) Shortness of breath; Translations: [Shortness of breath] Onset: 05-31-2024 Episodic Other non-traumatic joint disorders (20 sources) Derangement of right shoulder joint; Translations: [Other specific joint derangements of right shoulder, not elsewhere classified] Onset: 03-20-2020 Resolved: 09-28-2024 11-10-2022 Chronic Other nutritional; endocrine; and metabolic disorders (20 sources) Obesity; Translations: [Obesity, unspecified] Onset: 08-04-2018 Resolved: 11-11-2022 11-11-2022 Chronic Other nutritional; endocrine; and metabolic disorders (2 sources) Weight gain; Translations: [Abnormal weight gain] 12-23-2023 Episodic Otitis media and related conditions (20 sources) Dysfunction of right eustachian tube; Translations: [Unspecified Eustachian tube disorder, right ear] Onset: 01-30-2021 Resolved: 07-14-2023 11-10-2022 Episodic Residual codes; unclassified (1 source) Family history of malignant neoplasm of other genital organs; Translations: [FAM HX MALIG NEOPLSM OTH GENIT ORGN] Onset: 12-11-2021 Episodic Residual codes; unclassified (20 sources) History of colectomy; Translations: [Acquired absence of other specified parts of digestive tract] Onset: 11-10-2022 11-10-2022 Episodic Residual codes; unclassified (2 sources) Postmenopausal state; Translations: [Asymptomatic menopausal state] 12-18-2023 Episodic Residual codes; unclassified (20 sources) Family history of cardiac disorder; Translations: [Family history of ischemic heart disease and other diseases of the circulatory system] Onset: 07-27-2024 07-27-2024 Episodic Screening and history of mental health [...] Value Interpretation Reference Range Facility Office Visiton 01-24-2025 Follow-up visit [id number] Teodora Daily 1950 F Date Provider Department Center 01/24/2025 CHRIS BENZ MATTHEW [facility] Family History Problem Relation Age of Onset Other Mother Hypertrophic cardiomyopathy Sister Stroke Sister Other Sister Hypertrophic cardiomyopathy Brother Family Status - Relation Status Age at Mother Father Sister Brother Level of Service:93960 [place] OFFICE/OUTPATIENT ESTABLISHED MOD MDM 30 MIN Normal [facility] No Panel Informationon 01-21 THUY Brown 01/21/2025 8:04 AM Arthrocentesis Date/Time: 01/21/2025 7:55 AM Performed by: THUY Brown Authorized by: THUY Brown Consent: Consent obtained: Verbal Consent given by: Patient Risks, benefits, and alternatives were discussed: yes Risks discussed: Bleeding, infection and pain Alternatives discussed: No treatment and alternative treatment Location: Location: Knee Knee: R knee Anesthesia: Anesthesia method: Local infiltration Local anesthetic: Bupivacaine 0.5% w/o epi (0.5 cc) Procedure details: Needle gauge: 21 G. Ultrasound guidance: no Approach: Medial Steroid injected: yes (Depo-Medrol 80 mg) Specimen collected: no Post-procedure details: Dressing: Adhesive bandage Procedure completion: Tolerated well, no immediate complications [facility] e THUY Brown 01/21/2025 8:04 AM Arthrocentesis Date/Time: 01/21/2025 7:53 AM Performed by: THUY Bronw Authorized by: THUY Brown Consent: Consent obtained: Verbal Consent given by: Patient Risks, benefits, and alternatives were discussed: yes Risks discussed: Bleeding, infection and pain Alternatives discussed: No treatment and alternative treatment Location: Location: Knee Knee: L knee Anesthesia: Anesthesia method: Local infiltration Local anesthetic: Bupivacaine 0.5% w/o epi (0.5 cc) Procedure details: Needle gauge: 21 G. Ultrasound guidance: no Approach: Lateral Steroid injected: yes (Depo-Medrol 80 mg) Specimen collected: no Post-procedure details: Dressing: Adhesive bandage Procedure completion: Tolerated well, no immediate complications [facility] e MM TOMOSYNTHESIS SCREENING B [facility] 01-19-2025 [place] [address] Mammography Report Signed Patient: TEODORA DAILY MR#: [id number] : 1950 Acct:[id number] Age/Sex: 75 / F ADM Date: 01/19/25 Loc: MAMMO Attending Dr: Stephanie-Staff Physician Couch Ordering Physician: Jose Alba M.D. Results: Date of Service: 01/19/25 Follow Up: Procedure(s): MM tomosynthesis screening BI Accession Number(s): [id number] cc: SVEN PENG ; Jose Alba M.D. Patient Name: TEODORA DAILY MR#: [id number] : 1950 Exam Date: 01/19/2025 Ordering Doctor: NON-STAFF PHYSICIAN RADIOLOGY REPORT PROCEDURE: MM TOMOSYNTHESIS SCREENING BI COMPARISON: MM TOMOSYNTHESIS SCREENING BI, 01/15/2024. MM TOMOSYNTHESIS SCREENING BI, 12/19/2022. MG MAMM SCREEN 3D TOD CAD, 12/07/2021. MG MAMM SCREEN TOD W CAD, 08/01/2010. INDICATIONS: Screening Calculator Name NCI Breast Cancer Risk Assessment Tool 5 Year Breast Cancer Risk 2.10% Lifetime Breast Cancer Risk 4.00% Personal Breast Cancer No Personal Ovarian Cancer No Treatments None Family Cancers Sister with uterine cancer at age 60. LOCATION: [facility] BREAST COMPOSITION: There are scattered areas of fibroglandular density. FINDINGS: DIAGNOSTIC CATEGORY 1--NEGATIVE. RIGHT BREAST: No significant suspicious finding. LEFT BREAST: No significant suspicious finding. RECOMMENDATIONS: ROUTINE MAMMOGRAM AND CLINICAL EVALUATION IN 12 MONTHS. Dictated by: Elio Foreman DO on 01/19/2025 at 15:25 Approved by: Elio Foreman DO on 01/19/2025 at 15:26 Dictated By: Elio Foreman M.D. Signed By: 01/19/25 1527 DD/ 1526 TD/TT: Package Sealer Machine: [facility] Radiology, Radiologist, MD - 01/19/2025 [place] [address] Mammography Report Signed Patient: TEODORA DAILY MR#: [id number] : 1950 Acct:[id number] Age/Sex: 75 / F ADM Date: 01/19/25 Loc: MAMMO Attending Dr: Non-Staff Physician Iza Ordering Physician: Jose Alba M.D. Results: Date of Service: 01/19/25 Follow Up: Procedure(s): MM tomosynthesis screening BI Accession Number(s): [id number] cc: SVEN PENG ; Physician,OtfStaff Iza Patient Name: TEODORA DAILY MR#: [id number] : 1950 Exam Date: 01/19/2025 Ordering Doctor: NON-STAFF PHYSICIAN RADIOLOGY REPORT PROCEDURE: MM TOMOSYNTHESIS SCREENING BI COMPARISON: MM TOMOSYNTHESIS SCREENING BI, 01/15/2024. MM TOMOSYNTHESIS SCREENING BI, 12/19/2022. MG MAMM SCREEN 3D TOD CAD, 12/07/2021. MG MAMM SCREEN TOD W CAD, 08/01/2010. INDICATIONS: Screening Calculator Name NCI Breast Cancer Risk Assessment Tool 5 Year Breast Cancer Risk 2.10% Lifetime Breast Cancer Risk 4.00% Personal Breast Cancer No Personal Ovarian Cancer No Treatments None Family Cancers Sister with uterine cancer at age 60. LOCATION: [facility] BREAST COMPOSITION: There are scattered areas of fibroglandular density. FINDINGS: DIAGNOSTIC CATEGORY 1--NEGATIVE. RIGHT BREAST: No significant suspicious finding. LEFT BREAST: No significant suspicious finding. RECOMMENDATIONS: ROUTINE MAMMOGRAM AND CLINICAL EVALUATION IN 12 MONTHS. Dictated by: Elio Foreman DO on 01/19/2025 at 15:25 Approved by: Elio Foreman DO on 01/19/2025 at 15:26 Dictated By: Elio Foreman M.D. Signed By: 01/19/25 1527 DD/ 1526 TD/TT: Package Sealer Machine: [facility] Study observation (narrative) [facility] MM TOMOSYNTHESIS SCREENING B IOrdered By: Radiologist Radiology on 01-19-2025 [employer] Work Phone: Consulton 11-30-2024 Consult [id number] Teodora Daily 1950 F Date Provider Department Center 11/30/2024 Brandin-KARY ANDREA [facility] SURG Second Fl Family History Problem Relation Age of Onset Other Mother Hypertrophic cardiomyopathy Sister Stroke Sister Other Sister Hypertrophic cardiomyopathy Brother Family Status - Relation Status Age at Mother Father Sister Brother Level of Service:07483 [place] OFFICE/OUTPATIENT NEW MODERATE MDM 45 MINUTES Reason for Visit and Comments: Consult [484] - NS eval before SCS trial per pain management. Normal [facility] XR Hip - left 3 Viewson 10-20 Imaging Result: AP and lateral of left hip: Acceptable position and alignment of left total hip arthroplasty. There was no evidence of loosening of the acetabular cup or femoral stem. Femoral head was well centered in the acetabular liner without evidence of asymmetric or accelerated wear. There was no gross evidence of fracture and/or dislocation. Impression: Unremarkable left total hip arthroplasty. [facility] Study observation (narrative) [facility] LIPID PANEL, STANDARDon 06-2 8-2025 Cholesterol [Mass/Vol] 182 mg/dL Normal <200 [facility] Comment on above: Order Comment: FASTI NG:YES FASTING: YES Performed By: #### 3 5106, 7780 #### [facility] [address], [address] [place] [address] [employer] Cook: Pedro Asencio MD Cholesterol in HDL [Mass/Vol] 57 mg/dL Normal > OR = 50 [facility] Comment on above: Order Comment: FASTI NG:YES FASTING: YES Performed By: #### 3 6792, 5480 #### [facility] [address], [address] [place] [address] [employer] Cook: Pedro Asencio MD Cholesterol in LDL [Mass/Vol] 99 mg/dL Normal [facility] Comment on above: Order Comment: FASTI NG:YES FASTING: YES Result Comment: Refe rence range: <100 Desirable range <100 mg/dL for primary prevention; <70 mg/dL for patients with CHD or diabetic patients with > or = 2 CHD risk factors. LDL-C is now calculated using the Lc-Nesha calculation, which is a validated novel method providing better accuracy than the Friedewald equation in the estimation of LDL-C. Lc SS et al. MARGARETH. 2013;310(19): 7306-5467 (http://education.ServerPilot/faq/SPV455) Performed By: #### 3 1407, 2972 #### [facility] [address], [address] [place] [address] [employer] Cook: Pedro Asencio MD Cholesterol.total/Cho lesterol in HDL [Mass ratio] 3.2 {ratio} Normal <5.0 [facility] Comment on above: Order Comment: FASTI NG:YES FASTING: YES Performed By: #### 3 0714, 3610 #### [facility] [address], [address] [place] [address] Deep Fat [employer] Cook: Pedro Asencio MD NON HDL CHOLESTEROL 125 mg/dL (calc) Normal <130 [facility] Comment on above: Order Comment: FASTI NG:YES FASTING: YES Result Comment: For patients with diabetes plus 1 major ASCVD risk factor, treating to a non-HDL-C goal of <100 mg/dL (LDL-C of <70 mg/dL) is considered a therapeutic option. Performed By: #### 3 5922, 7600 #### [facility] [address], [address] [place] [address] [employer] Cook: Pedro Asencio MD Triglyceride [Mass/Vol] 160 mg/dL High <150 [facility] Comment on above: Order Comment: FASTI NG:YES FASTING: YES Performed By: #### 3 1449, 7600 #### [facility] [address], [address] [place] [address] Deep Fat Fry Cook: Pedro Asencio MD TSH W/REFLEX TO FT4on 2024 TSH W/REFLEX TO FT4 2.67 mIU/L Normal 0.40-4.50 [facility] Comment on above: Performed By: #### 3 7591, 5910 #### [facility] [address], [address] [place] [address] Deep Fat Fry Cook: Pedro Asencio MD No Panel Informationon 10-15 THUY Brown 10/15/2024 9:18 AM Arthrocentesis Date/Time: 10/15/2024 9:12 AM Performed by: THUY Brown Authorized by: THUY Brown Consent: Consent obtained: Verbal Consent given by: Patient Risks, benefits, and alternatives were discussed: yes Risks discussed: Bleeding, infection and pain Alternatives discussed: No treatment and alternative treatment Location: Location: Knee Knee: R knee Anesthesia: Anesthesia method: Local infiltration (0.5 cc) Local anesthetic: Bupivacaine 0.5% w/o epi Procedure details: Needle gauge: 21 G. Ultrasound guidance: no Approach: Lateral Steroid injected: yes (80 mg Depo-Medrol) Specimen collected: no Post-procedure details: Dressing: Adhesive bandage Procedure completion: Tolerated well, no immediate complications [facility] e 36on 09-30-2024 36 Patient called to alysia maravilla aware that she has increased her metoprolol another 12.5mg, for a total of 50mg daily. This was discuss with Maricruz Arvizu and she is ok with this. 50mg tablets sent into patient's pharmacy. She verbalized understanding. [facility] XR LUMBAR SPINE 6V W BENDING on 09-01-2024 [place] [id number] XRay Report Signed Patient: TEODORA DAILY MR#: [id number] : 1950 Acct:[id number] Age/Sex: 74 / F ADM Date: 09/01/24 Loc: NIK Attending Dr: Christofer Romano NP Ordering Physician: Christofer Romano NP Date of Service: 09/01/24 Procedure(s): XR lumbar spine 6V w bending Accession Number(s): [id number] cc: SVEN PENG ; Christofer Romano NP [place] [address] Patient Name: TEODORA DAILY MRN: [id number] date: 1950 Sex: F Assigned Patient Location: [facility] Current Patient Location: [facility] Accession/Order Number: [id number] Exam Date: 09/01/2024 15:01 Report Date: 09/01/2024 [...] Mcbride M.D. 09/01/2024 3:06 PM Dictation Location: [place] [address] Electronically authenticated by: [id number] Y Date: 09/01/2024 15:06 Dictated By: Joe Mcbride M.D. Signed By: 09/01/24 1508 DD/ 1506 TD/TT: Package Sealer Machine: [facility] Radiology, Radiologist, MD - 09/01/2024 [place] [address] XRay Report Signed Patient: TEODORA DAILY MR#: [id number] : 1950 Acct:[id number] Age/Sex: 74 / F ADM Date: 09/01/24 Loc: NIK Attending Dr: Christofer Romano ONCOLOGY CONSULTANT Ordering Physician: Christofer Romano NP Date of Service: 09/01/24 Procedure(s): XR lumbar spine 6V w bending Accession Number(s): [id number] cc: SVEN PENG ; Christofer Romano NP The [place] [id number] Patient Name: TEODORA DAILY MRN: [facility]:[id number] date: 1950 Sex: F Assigned Patient Location: [facility] Current Patient Location: [facility] Accession/Order Number: [id number] Exam Date: 09/01/2024 15:01 Report Date: 09/01/2024 [...] Mcbride M.D. 09/01/2024 3:06 PM Dictation Location: [place] [address] Electronically authenticated by: [id number] Y Date: 09/01/2024 15:06 Dictated By: Joe Mcbride M.D. Signed By: 09/01/24 1508 DD/ 1506 TD/TT: Package Sealer Machine: [facility] Radiology Study observation (narrative) [facility] XR LUMBAR SPINE 6V W BENDING Ordered By: Radiologist Radiology on 09-01-2024 [facility] [employer] Work Phone: CA ECHO DOPPLER COMPLETEon 0 08-25-2024 [place] [address] Cardiology Report Signed Patient: TEODORA DAILY MR#: [id number] : 1950 Acct:[id number] Age/Sex: 74 / F ADM Date: 08/25/24 Loc: CARD Attending Dr: LUIS ENRIQUE ARVIZU APRN Ordering Physician: LUIS ENRIQUE ARVIZU APRN Date of Service: 08/25/24 Procedure(s): CA echo doppler complete Accession Number(s): [id number] cc: SVEN PENG ; LUIS ENRIQUE ARVIZU APRN Patient Name: TEODORA DAILY MR#: [id number] : 1950 Exam Date: 08/25/2024 Ordering Doctor: LUIS ENRIQUE ARVIZU CNP ECHOCARDIOGRAM REPORT PROCEDURE: CA ECHO DOPPLER [...] 46.73 ml, 46.73 ml Dictated by: Chris Chacko M.D. on 08/25/2024 at 18:02 Approved by: Chris Chacko M.D. on 08/25/2024 at 18:06 Dictated By: CHRIS CHACKO Signed By: (more content not included)... [facility] Radiology, Radiologist, MD - 08/25/2024 [place] [address] Cardiology Report Signed Patient: TEODORA DAILY MR#: [id number] : 1950 Acct:[id number] Age/Sex: 74 / F ADM Date: 08/25/24 Loc: CARD Attending Dr: LUIS ENRIQUE ARVIZU APRN Ordering Physician: LUIS ENRIQUE ARVIZU APRN Date of Service: 08/25/24 Procedure(s): CA echo doppler complete Accession Number(s): [id number] cc: SVEN PENG MELINDA APRN Patient Name: TEODORA DAILY MR#: [id number] : 1950 Exam Date: 08/25/2024 Ordering Doctor: LUIS ENRIQUE ARVIZU [facility] ECHOCARDIOGRAM REPORT PROCEDURE: CA ECHO DOPPLER [...] 46.73 ml, 46.73 ml Dictated by: Chris Chacko M.D. on 08/25/2024 at 18:02 Approved by: Chris Chacko M.D. on 08/25/2024 at 18:06 Dictated By: CHRIS CHACKO Signed By: 08/25/241806 DD/ 05 TD/TT: Package Sealer Machine: [facility] Radiology Study observation (narrative) [facility] CA ECHO DOPPLER COMPLETEOrde red By: Radiologist Radiology on 08-25-2024 [facility] [employer] Work Phone: 37on 07-29-2024 37 *Increase metoprolol to 37.5 Normal [facility] Office Visiton 07-29-2024 Follow-up visit [id number] Teodora Daily 1950 F Date Provider Department Center 07/29/2024 LUIS ENRIQUE MATHEWS CARD [facility] Family History Problem Relation Age of Onset Other Mother Hypertrophic cardiomyopathy Sister Stroke Sister Other Sister Hypertrophic cardiomyopathy Brother Family Status - Relation Status Age at Mother Father Sister Brother Level of Service:80352 [place] OFFICE/OUTPATIENT ESTABLISHED MOD MDM 30 MIN Reason for Visit and Comments: Chest Pain [465409] Normal [facility] Arthrocentesison 06-23-2024 THUY Brown 06/23/2024 11:31 AM Arthrocentesis Date/Time: [...] Procedure completion: Tolerated well, no immediate complications [facility] [employer] Office Visiton 05-31-2024 Follow-up visit [id number] Teodora Daily 1950 F Date Provider Department Center 05/31/2024 CHRIS BENZ MATTHEW Pool Family History Problem Relation Age of Onset Other Mother Hypertrophic cardiomyopathy Sister Stroke Sister Other Sister Hypertrophic cardiomyopathy Brother Family Status - Relation Status Age at Mother Sister Brother Level of Service:57002 [place] OFFICE/OUTPATIENT ESTABLISHED LOW MDM 20 MIN Normal [facility] No Panel InformationOrdered By: Minal Lyman on 04-12-2024 [employer] Work Phone: ALL CBC WITH AUTO DIFFon BASOPHILS ABSOLUTE AUTO 0.1 [facility] Basophils/100 WBC (Bld) 0.7 % 0.2 - 2.0 % [facility] Eosinophils/100 WBC (Bld) 8.5 % High 0.9 - 7.0 % [facility] Erythrocyte distribution width (RBC) [Ratio] 13.2 % 11.0 - 15.0 % [facility] Hematocrit (Bld) [Volume fraction] 41.1 % 36.0 - 48.0 % [facility] Hemoglobin (Bld) [Mass/Vol] 13.2 g/dL 12.0 - 16.0 g/dL [facility] IMMATURE GRANULOCYTES ABS AUTO 0.03 [facility] Immature granulocytes/100 WBC (Bld) 0.4 % 0.0 - 0.5 % [facility] Interpretation and review of laboratory results Abnormal [facility] LYMPHOCYTES ABSOLUTE AUTO 1.7 [facility] Lymphocytes/100 WBC (Bld) 20.6 % 20.5 - 60.0 % [facility] MCH (RBC) [Entitic mass] 28.9 pg 26.7 - 34.0 pg [facility] MCHC (RBC) [Mass/Vol] 32.1 g/dL 29.9 - 35.2 g/dL [facility] MCV (RBC) [Entitic vol] 90.1 fL 81.0 - 99.0 fL [facility] MONOCYTES ABSOLUTE AUTO 0.7 [facility] Monocytes/100 WBC (Bld) 8.4 % 1.7 - 12.0 % [facility] NEUTROPHILS ABSOLUTE AUTO 5.1 [facility] Neutrophils/100 WBC (Bld) 61.4 % 43.0 - 75.0 % [facility] Platelet mean volume (Bld) [Entitic vol] 11.4 fL 9.5 - 13.5 fL [facility] TBH EO # 0.7 [facility] TB PLT 237 [facility] TB RBC 4.56 [facility] TB WBC 8.3 [facility] CLINISYNC [facility] e Auditory function testson Right Ear: Mild to moderate sensorineural hearing loss from 500 Hz - 1K Hz. Moderate to severe sensorineural hearing loss above 2K Hz Left Ear: Mild to profound sensorineural hearing loss above 500 Hz. [facility] Urinalysis macro (dipstick) panel (U)on 01-28-2024 Bilirubin, UA Negative Negative - 4(70) +++ mg/dL [facility] Blood, UA Negative Negative - 50 Nas/mcL [facility] Clarity, UA Clear [facility] Color, UA Yellow [facility] Glucose, UA Negative Negative - 2000(110) ++++ mg/dL [facility] Interpretation and review of laboratory results Abnormal [facility] Ketones, UA Negative Negative - 160(16) ++++ mg/dL [facility] Leukocytes, UA Trace Negative - 500+++ Aisha/mcL [facility] Nitrite, UA Negative Negative - Positive [facility] pH, UA 6.5 5 - 9 [facility] Protein, UA Negative Negative - 1999(20) ++++ mg/dL [facility] Spec Grav, UA 1.005 1 - 1.03 [facility] Urobilinogen, UA 1.0 0.2 - 12 mg/dL [facility] No Panel Informationon 01-25 Yaa Duke, ONCOLOGY CONSULTANT 01/26/2024 11:00 AM L Inj/Asp: R knee on 01/26/2024 10:44 AM Indications: pain Details: 20 G needle, anterolateral approach Medications: 40 mg methylPREDNISolone acetate 40 MG/ML UTILIZING ASEPTIC TECHNIQUE PT GIVEN INJECTION IN RIGHT KNEE, NEUROVASC INTACT S/P INJ, TOLERATED WELL Procedure, treatment alternatives, risks and benefits explained, specific risks discussed. Consent was given by the patient. [facility] FREE T3on 07-24-2022 FREE T3 2.66 pg/mlL Normal 2.18-3.98 [facility] Comment on above: Performed By: #### T SH, FT3 #### [facility] [address] [place] [address] [address] Adolph Clinton FREE T4on 07-24-2022 Free T4 [Mass/Vol] 0.85 ng/dL Normal 0.76-1.46 [facility] Comment on above: Performed By: #### F T4 #### [facility] [address] [place] [address] [address] Adolph Clinton TSHon 07-24-2022 TSH 2.124 uIU/mL Normal 0.358-3.740 [facility] Comment on above: Performed By: #### T SH, FT3 #### [facility] [address] [place] [address] [address] Adolph Clinton XR FINGER MIN 2 VIEWSon 03-21 XR FINGER MIN 2 VIEWS EXAM: XR FINGER IA N 2 VIEWS HISTORY: Laceration of finger [...] [place] [facility] Quick Testingon 2021 Result Negative [facility] Other Quick Fluon 02-08-2022 FLUAV Ab CF (S) [Titer] Negative [facility] Other FLUBV Ab CF (S) [Titer] Negative [facility] Other MG MAMM SCREEN 3D TOD CADon 12-07-2021 MG MAMM SCREEN 3D TOD CAD Patient: TEODORA DAILY Exam Date: 12/07/2021 : 1950 Gender:F Ordering : DR SVEN PENG M.D. Admission #: [id number] Family : DR. TEODORA CHADWICK D.O. Order #: [id number] CLICK HERE TO VIEW EXAM RADIOLOGY REPORT [...] LUMP SHOULD BE BIOPSIED. Dictated by: Sebastian Meehan M.D. on 12/07/2021 at 12:10 Approved by: Sebastian Meehan M.D. on 12/07/2021 at 12:13 Normal [facility] XR DEXA BONE DENSITYon 12-07 XR DEXA [...] Moderate Fracture Risk Electronically authenticated by: SEBASTIAN MEEHAN Date: 2021-12-07 15:10 Normal [facility] MRI CARDIAC W WO CONTRASTon 10-16-2021 MRI CARDIAC W WO CONTRAST [facility] Department of Radiology [address] [place] [id number] ======== Patient Name: TEODORA DAILY : 1950 Sex: F Age: Race: White Pt. Location: 30 Patient Status: D Ordered Date: 09/25/2021 8:10:00 AM Completed Date: 10/16/2021 12:33 PM Requesting Provider: CHRIS CHACKO V Attending Provider: Report Copy To: Signs [...] is less than 2. Electronically signed: Kane Medina. Transcribed by: [email or web address], User Resident: Electronically Signed by: KANE MEDINA @ 10/18/2021 02:11 PM Normal [facility] CREATININEon 09-07-2021 Creatinine [Mass/Vol] 0.77 mg/dL Normal 0.55-1.02 [facility] Comment on above: Performed By: #### C IDALIA #### [facility] [address] [place] [address] Dr. Adolph Clinton EGFR-AF COLOMBIAN >60 Normal >=60 [facility] Comment on above: Performed By: #### C IDALIA #### [facility] [address] [place], [place] [address] Dr. Adolph Clinton EGFR-NON AF COLOMBIAN >60 Normal >=60 [facility] Comment on above: Performed By: #### C IDALIA #### [facility] [address] [place], [place] [address] HEAD WO W CONon 2 CT HEAD WO W CON EXAMINATION: CT HEAD WO W CON HISTORY: Transient cerebral ischemia COMPARISON: None. TECHNIQUE: Multiple computed tomograms of the head were obtained with and without intravenous contrast enhancement. 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 The vasculature about the [place] of [place] appears grossly intact. IMPRESSION: There [...] GARCIA Date: 2021-09-07 13:44 Normal [facility] ECHOCARDIO M/2D COMPLETEon 0 09-05-2021 ECHOCARDIO M/2D COMPLETE Patient: TEODORA DAILY Exam Date: 09/05/2021 : 1950 Gender:F Ordering : DR SVEN PENG M.D. Admission #: [id number] Family : Order #: [id number] CLICK HERE TO VIEW EXAM ECHOCARDIOGRAM REPORT [...] Area(A4C): 12.70 cm2 Left Atrium Systolic Volume(A2C): 51752 mm3 Left Atrium Systolic Volume(A4C): 66415 mm3 Mitral Valve MV E to A [...] 3 mm[Hg] Right Atrium Dictated by: Chris Chacko M.D. on 09/05/2021 at 20:04 Approved by: Chris Chacko M.D. on 09/05/2021 at 20:08 Normal [facility] Q - DEJUAN SCREEN IFA W/RFL TIT ER IFAon 05-10-2021 DEJUAN SCREEN, IFA Negative Normal NEGATIVE [facility] Comment on above: Order Comment: [facility] performed at: QPT, [facility], [address] [place] [address], [address] [place] [address], [address], Products Mechanical Design Engineer: Pedro Asencio MD [facility] Date/Time: [facility] Results Received Date/Time: [id number] [facility] Reported Date/Time: Result Comment: DEJUAN IFA [...] AC-0: Negative International Consensus on DEJUAN Patterns (https://doi.org/10.1515/mpvz-8997-0304) For additional information, please refer to http://education.ServerPilot/faq/GAZ251 (This link is being provided for informational/ educational purposes only.) Performed By: #### 7 832X, 249X #### [facility] Default [address] [place] [address] Q - SJOGREN'S ABS (SS-A,SS-B )on 05-10-2021 SJOGREN'S ANTIBODY (SS-A) <1.0 NEG Normal <1.0 NEG [facility] Comment on above: Order Comment: [facility] performed at: [facility], [address] [place] [address], [address] [place] [address], [address] [place] [address], Products Mechanical Design Engineer: Pedro Asencio MD [facility] Date/Time: [facility] Results Received Date/Time: [facility] Reported Date/Time: Performed By: #### 7 832X, 249X #### [facility] Default [address] [place] [address] SJOGREN'S ANTIBODY (SS-B) <1.0 NEG Normal <1.0 NEG [facility] Comment on above: Order Comment: [facility] performed at: [facility], [facility], [address] [place] [address], [address] [place] [address], Products Mechanical Design Engineer: Pedro Asencio MD [facility] Date/Time: [facility] Received Date/Time: [facility] Reported Date/Time: Performed By: #### 7 832X, 249X #### [facility] Default [address] [place] [address] Q - DEJUAN CASC [id number] 022 CHROMATIN (NUCLEOSOMAL) ANTIBODY <1.0 NEG Normal <1.0 NEG [facility] Specialist Comment on above: Order Comment: [facility] performed at: [facility], [facility], [address], [address] [place], [address], Products Mechanical Design Engineer: Pedro Asencio MD [facility] Date/Time: [id number] [facility] Results Received Date/Time: [facility] Reported Date/Time: [...] 12% Sjogren's syndrome and 8% polymyositis. Ribonucleoprotein (SOLAR PANEL INSTALLER) antibodies are to SOLAR PANEL INSTALLER A and/or SOLAR PANEL INSTALLER 68kD proteins; antibodies to one or both are present in >80% MCTD, 22% to 48% SLE, 14% systemic sclerosis, 12% Sjogren's and 8% polymyositis. Sm/SOLAR PANEL INSTALLER antibodies are directed to epitopes formed in a complex of Sm and SOLAR PANEL INSTALLER; antibodies to the Sm/SOLAR PANEL INSTALLER complex are present in 54% to 94% MCTD, 30% SLE, 4% systemic sclerosis, and 9% Sjogren's and polymyositis. Sm antibody is present in 20% to 30% SLE, 8% MCTD, 10% polymyositis, 0% systemic sclerosis and 4% Sjogren's syndrome. Double stranded DNA, Chromatin, Ribonucleoprotein, Sm/SOLAR PANEL INSTALLER complex and Sm antibodies are present in <2% of normal blood donors. The [place] does not rule out autoimmune disease characterized by other autoantibody specificities such as rheumatoid arthritis, autoimmune hepatitis, primary biliary cholangitis, autoimmune thyroiditis, Leslie's disease, pernicious anemia, autoimmune neuropathies, vasculitis, celiac disease and bullous disease. Please contact your local [facility] laboratory if you are interested in additional testing. Performed By: #### % IN7, % #### [facility] Default [address] [place] [address] DNA (DS) ANTIBODY <1 Normal [facility] Specialist Comment on above: Order Comment: [facility] performed at: [place], [facility], [address] [place] [address], [address] [place] [address], [address] [place] [address], Products Mechanical Design Engineer: Pedro Asencio MD [facility] Date/Time: [facility] Results Received Date/Time: [facility] Reported Date/Time: Result Comment: IU/m L Interpretation < or = 4 Negative 5-9 Indeterminate > or = 10 Positive Performed By: #### % IN, % #### [facility] Default [address] [place] [address] SOLAR PANEL INSTALLER ANTIBODY 1.0 POS Abnormal <1.0 NEG [facility] Documentation Nurse Comment on above: Order Comment: [facility] performed at: [place], [facility], [address] [place] [address], [address] [place], [place] [address], [address] [place] [address], Products Mechanical Design Engineer: Pedro Asencio MD [facility] Collection Date/Time: [facility] Results Received Date/Time: [facility] Reported Date/Time: Performed By: #### % IN, % #### [facility] Default [address] [place] [address] SM ANTIBODY <1.0 NEG Normal <1.0 NEG [facility] Documentation Nurse Comment on above: Order Comment: [facility] Testing performed at: [place], [address] [place] [address], [address] [place] [address], [address] [place] [address], Products Mechanical Design Engineer: Pedro Asencio MD [facility] Collection Date/Time: [facility] Results Received Date/Time: [facility] Reported Date/Time: Performed By: #### % IN7, % #### [facility] Default [address] [place] [address] SM/SOLAR PANEL INSTALLER ANTIBODY <1.0 NEG Normal <1.0 NEG [facility] Documentation Nurse Comment on above: Order Comment: [facility] Testing performed at: [place], [address], [address] [place], [address], Products Mechanical Design Engineer: Pedro Asencio MD [facility] Collection Date/Time: [facility] Results Received Date/Time: [facility] Reported Date/Time: Performed By: #### % IN7, % #### [facility] Default [address] [place] [address] Q - DEJUAN MULTIPLEX W/ REFLEX TO 11 ANTIBODY CASCADEon 05-01-2021 ANACHOICE(R) SCREEN Positive Abnormal NEGATIVE [facility] Specialist Comment on above: Order Comment: [facility] Testing performed at: [place], [address] [place], [place], [address] [place] [address], Products Mechanical Design Engineer: Pedro Asencio MD [facility] Collection Date/Time: [facility] Results Received Date/Time: [facility] Reported Date/Time: Result Comment: A po sitive DEJUAN, Multiplex reflexes to the 3 Tiered Multiplex 11 Antibody [place]. Testing in the [place] stops at the first positive result and does not preclude additional positive results. Further laboratory testing may be considered if clinically indicated. For additional information, please refer to http://education.ServerPilot/faq/EQS049 (This link is being provided for informational/ educational purposes only.) Performed By: #### % IN7, % #### [facility] Default [address] [place] [address] Q - SOLAR PANEL INSTALLER INTERPon 05-01-2021 INTERPRETATION SEE NOTE Normal [facility] Documentation Nurse Comment on above: Order Comment: [facility] Testing performed at: [place], [address], [address] [place], [address], Products Mechanical Design Engineer: Pedro Asencio MD [facility] Collection Date/Time: [facility] Results Received Date/Time: [facility] Reported Date/Time: Result Comment: SOLAR PANEL INSTALLER antibody is found in patients with mixed connective tissue disease in high titer. This antibody may also be seen in systemic lupus erythematosus and other connective tissue diseases. A positive result at this stage of testing stops further testing, and does not preclude additional positive antibodies. Clinical correlation is required to assess the need for testing additional analytes. Performed By: #### % IN7, %[id number], #### [facility] Default [address] [place] [address] Vital Signs Date Time Vital Sign Value Performing Clinician Facility 01-20-2025 14:18-0400 Body height 158.8 cm Joleen Hemmer PA Work Phone: [facility] 01-20-2025 14:18-0400 Body mass index (BMI) [Ratio] 37.73 kg/m2 Joleen Hemmer PA Work Phone: [facility] 01-20-2025 14:18-0400 Body weight 95.07 kg Joleen Hemmer PA Work Phone: [facility] 01-20-2025 14:18-0400 Diastolic blood pressure 66 mm[Hg] Joleen Hemmer PA Work Phone: [facility] 01-20-2025 14:18-0400 Heart rate 77 /min Joleen Hemmer PA Work Phone: [facility] 01-20-2025 14:18-0400 Respiratory rate 16 /min Joleen Hemmer PA Work Phone: [facility] 01-20-2025 14:18-0400 SaO2% (BldA) [Mass fraction] 95 % Joleen Hemmer PA Work Phone: [facility] 01-20-2025 14:18-0400 Systolic blood pressure 104 mm[Hg] Joleen Hemmer PA Work Phone: [facility] 12-30-2024 10:59-0400 Body mass index (BMI) [Ratio] 37.08 kg/m2 Teodora Rinkes DO Work Phone: [facility] 12-30-2024 10:59-0400 Body weight 93.44 kg Teodora Rinkes DO Work Phone: [facility] 12-30-2024 10:59-0400 Diastolic blood pressure 70 mm[Hg] Teodora Rinkes DO Work Phone: [facility] 12-30-2024 10:59-0400 Systolic blood pressure 128 mm[Hg] Teodora Rinkes DO Work Phone: [facility] 10-15-2024 08:37-0400 Body height 158.8 cm Joleen Hemmer PA Work Phone: [facility] 10-15-2024 08:37-0400 Body mass index (BMI) [Ratio] 36.72 kg/m2 Joleen Hemmer PA Work Phone: [facility] 10-15-2024 08:37-0400 Body weight 92.53 kg Joleen Hemmer PA Work Phone: [facility] 10-15-2024 08:37-0400 Diastolic blood pressure 78 mm[Hg] Joleen Hemmer PA Work Phone: [facility] 10-15-2024 08:37-0400 Heart rate 64 /min Joleen Hemmer PA Work Phone: [facility] 10-15-2024 08:37-0400 SaO2% (BldA) [Mass fraction] 95 % Joleen Hemmer PA Work Phone: [facility] 10-15-2024 08:37-0400 Systolic blood pressure 136 mm[Hg] Joleen Hemmer PA Work Phone: [facility] 09-28-2024 13:11-0400 Body height 158.8 cm Joleen Hemmer PA Work Phone: [facility] 09-28-2024 13:11-0400 Body mass index (BMI) [Ratio] 36.83 kg/m2 Joleen Hemmer PA Work Phone: [facility] 09-28-2024 13:11-0400 Body weight 92.81 kg Joleen Hemmer PA Work Phone: [facility] 09-28-2024 13:11-0400 Diastolic blood pressure 64 mm[Hg] Joleen Hemmer PA Work Phone: [facility] 09-28-2024 13:11-0400 Heart rate 64 /min Joleen Hemmer PA Work Phone: [facility] 09-28-2024 13:11-0400 Respiratory rate 16 /min Joleen Hemmer PA Work Phone: [facility] 09-28-2024 13:11-0400 SaO2% (BldA) [Mass fraction] 93 % Joleen Hemmer PA Work Phone: [facility] 09-28-2024 13:11-0400 Systolic blood pressure 128 mm[Hg] Joleen Hemmer PA Work Phone: [facility] 07-27-2024 11:11-0400 Body height 158.8 cm Joleen Hemmer PA Work Phone: [facility] 07-27-2024 11:11-0400 Body mass index (BMI) [Ratio] 36.43 kg/m2 Joleen Hemmer PA Work Phone: [facility] 07-27-2024 11:11-0400 Body weight 91.81 kg Joleen Hemmer PA Work Phone: [facility] 07-27-2024 11:11-0400 Diastolic blood pressure 80 mm[Hg] Joleen Hemmer PA Work Phone: [facility] 07-27-2024 11:11-0400 Heart rate 65 /min Joleen Hemmer PA Work Phone: [facility] 07-27-2024 11:11-0400 Respiratory rate 16 /min Joleen Hemmer PA Work Phone: [facility] 07-27-2024 11:11-0400 SaO2% (BldA) [Mass fraction] 97 % Joleen Hemmer PA Work Phone: [facility] 07-27-2024 11:11-0400 Systolic blood pressure 122 mm[Hg] Joleen Hemmer PA Work Phone: [facility] 06-23-2024 11:05-0500 Body height 158.8 cm Joleen Hemmer PA Work Phone: [facility] 06-23-2024 11:05-0500 Body mass index (BMI) [Ratio] 36.29 kg/m2 Joleen Hemmer PA Work Phone: [facility] 06-23-2024 11:05-0500 Body weight 91.44 kg Joleen Hemmer PA Work Phone: [facility] 06-23-2024 11:05-0500 Diastolic blood pressure 74 mm[Hg] Joleen Hemmer PA Work Phone: [facility] 06-23-2024 11:05-0500 Heart rate 71 /min Joleen Hemmer PA Work Phone: [facility] 06-23-2024 11:05-0500 Respiratory rate 16 /min Joleen Hemmer PA Work Phone: [facility] 06-23-2024 11:05-0500 SaO2% (BldA) [Mass fraction] 95 % Joleen Hemmer PA Work Phone: [facility] 06-23-2024 11:05-0500 Systolic blood pressure 136 mm[Hg] Joleen Hemmer PA Work Phone: [facility] 05-04-2024 11:29-0500 Body height 158.8 cm Lindsey Raymundo MD Work Phone: [facility] 05-04-2024 11:29-0500 Body mass index (BMI) [Ratio] 35.28 kg/m2 Lindsey Raymundo MD Work Phone: [facility] 05-04-2024 11:29-0500 Body weight 88.91 kg Lindsey Raymundo MD Work Phone: [facility] 05-04-2024 11:29-0500 Diastolic blood pressure 60 mm[Hg] Lindsey Raymundo MD Work Phone: [facility] 05-04-2024 11:29-0500 Heart rate 65 /min Lindsey Raymundo MD Work Phone: [facility] 05-04-2024 11:29-0500 Systolic blood pressure 110 mm[Hg] Lindsey Raymundo MD Work Phone: [facility] 02-11-2024 11:25-0400 Body height 158.8 cm Linsdey Raymundo MD Work Phone: [facility] 02-11-2024 11:25-0400 Body mass index (BMI) [Ratio] 34.92 kg/m2 Lindsey Raymundo MD Work Phone: [facility] 02-11-2024 11:25-0400 Body weight 88 kg Lindsey Raymundo MD Work Phone: [facility] 02-11-2024 11:25-0400 Diastolic blood pressure 69 mm[Hg] Lindsey Raymundo MD Work Phone: [facility] 02-11-2024 11:25-0400 Systolic blood pressure 127 mm[Hg] Lindsey Raymundo MD Work Phone: [facility] 01-28-2024 13:42-0400 Body height 158.8 cm Joleen Hemmer PA Work Phone: [facility] 01-28-2024 13:42-0400 Body mass index (BMI) [Ratio] 35.53 kg/m2 Joleen Hemmer PA Work Phone: [facility] 01-28-2024 13:42-0400 Body weight 89.54 kg Joleen Hemmer PA Work Phone: [facility] 01-28-2024 13:42-0400 Diastolic blood pressure 72 mm[Hg] Joleen Hemmer PA Work Phone: [facility] 01-28-2024 13:42-0400 Heart rate 73 /min Joleen Hemmer PA Work Phone: [facility] 01-28-2024 13:42-0400 Respiratory rate 16 /min Joleen Hemmer PA Work Phone: [facility] 01-28-2024 13:42-0400 SaO2% (BldA) [Mass fraction] 96 % Joleen Hemmer PA Work Phone: [facility] 01-28-2024 13:42-0400 Systolic blood pressure 124 mm[Hg] Joleen DALEY Work Phone: [facility] 12-23-2023 11:47-0400 Body height 158.8 cm Teodora Rinkes DO Work Phone: [facility] 12-23-2023 11:47-0400 Body mass index (BMI) [Ratio] 34.74 kg/m2 Teodora Rinkes DO Work Phone: [facility] 12-23-2023 11:47-0400 Body weight 87.54 kg Teodora Rinkes DO Work Phone: [facility] 12-23-2023 11:47-0400 Diastolic blood pressure 86 mm[Hg] Teodora Rinkes DO Work Phone: [facility] 12-23-2023 11:47-0400 Systolic blood pressure 138 mm[Hg] Teodora Rinkes DO Work Phone: [facility] 02-08-2022 13:05-0400 Body height 158.75 cm Staci Esquivel Other [facility] Other 02-08-2022 13:05-0400 Body mass index (BMI) [Ratio] 33.29 kg/m2 Staci Esquivel Other [facility] Other 02-08-2022 13:05-0400 Body temperature 101 [degF] Staci Sierra Other [facility] Other 02-08-2022 13:05-0400 Body weight 83.92 kg Staci Esquivel Other [facility] Other 02-08-2022 13:05-0400 Respiratory rate 18 /min Staci Esquivel Other [facility] Other 02-08-2022 13:05-0400 SaO2% (BldA) [Mass fraction] 95 % Staci Esquivel Other [facility] Other Encounters Encounter Date Encounter Type Care Provider Facility Start: 01-24-2025 End: 01-24-2025 ambulatory [facility] Start: 01-20-2025 End: 01-20-2025 ambulatory JOLEEN COURTNEY Not Available Start: 01-20-2025 End: 01-20-2025 Bamboo flowsheet Joleen Courtney PA Work Phone: [facility] Start: 01-20-2025 End: 01-20-2025 Bamboo flowsheet Joleen Courtney PA Work Phone: [facility] Start: 01-20-2025 End: 01-20-2025 Office outpatient visit 25 minutes Joleen Courtney PA Work Phone: [facility] Comment on above: Primary osteoarthrit is of both knees (Primary Dx); Bilateral lower extremity edema; Current mild episode of major depressive disorder without prior episode Start: 01-19-2025 End: 01-19-2025 Clinisync Result Encounter Generic External Data Provider [facility] External Department Unsolicited Start: 01-19-2025 End: 01-19-2025 Clinisync Result Encounter Generic External Data Provider [facility] External Department Unsolicited Start: 12-30-2024 End: 12-30-2024 Bamboo flowsheet Teodora E Rinkes DO Work Phone: [facility] Start: 12-30-2024 End: 12-30-2024 Bamboo flowsheet Teodora E Rinkes DO Work Phone: [facility] Start: 12-30-2024 End: 12-30-2024 Office outpatient visit 25 minutes Teodora E Rinkes DO Work Phone: [facility] Comment on above: Vaginal atrophy; Encounter for screening mammogram for breast cancer Start: 12-30-2024 End: 12-30-2024 ambulatory TEODORA CHADWICK Not Available Start: 11-30-2024 End: 11-30-2024 ambulatory [facility] Start: 11-16-2024 End: 11-16-2024 Bamboo flowsheet Ramiro Fiore PA Work Phone: [facility] Start: 11-16-2024 End: 11-16-2024 Bamboo flowsheet Ramiro iFore PA Work Phone: [facility] Start: 11-16-2024 End: 11-16-2024 Office outpatient visit 15 minutes Ramiro DALEY Work Phone: [facility] Comment on above: History of left hip replacement (Primary Dx); Left hip pain; Acute bilateral low back pain without sciatica Start: 11-16-2024 End: 11-16-2024 ambulatory RAMIRO FIORE Not Available Start: 10-15-2024 End: 10-15-2024 Office outpatient visit 15 minutes Joleen Courtney PA Work Phone: [facility] Comment on above: Primary osteoarthrit is of right knee (Primary Dx); Stress reaction; Osteoarthritis of spine with radiculopathy, lumbar region Start: 10-15-2024 End: 10-15-2024 ambulatory JOLEEN COURTNEY Not Available Start: 10-12-2024 End: 10-12-2024 ambulatory [facility] Start: 10-12-2024 End: 10-12-2024 [facility] Start: 09-28-2024 End: 09-28-2024 Bamboo flowsheet Joleen Courtney PA Work Phone: [facility] Start: 09-28-2024 End: 09-28-2024 Bamboo flowsheet Joleen Courtney PA Work Phone: [facility] Start: 09-28-2024 End: 09-28-2024 Patient encounter procedure Joleen Courtney PA Work Phone: [facility] Comment on above: Medicare annual well ness visit, subsequent (Primary Dx); ACP (advance care planning); Pulmonary hypertension, unspecified (CMS/HCC); Weight gain; Seasonal allergic rhinitis due to pollen; Arthritis of right acromioclavicular joint; Bilateral lower extremity edema; Bilateral tinnitus; Chronic myringitis, unspecified laterality; Decreased estrogen level; Disorder of sacrum; Dry eye syndrome of bilateral lacrimal glands; ETD (Eustachian tube dysfunction), right; Former smoker; Herniated lumbar intervertebral disc; History of colon resection; Impaired glucose tolerance; Intermittent palpitations; Obstructive hypertrophic cardiomyopathy (CMS/HCC); Lumbosacral spondylosis without myelopathy; Obesity (BMI 30.0-34.9); Osteopenia of multiple sites; Overactive bladder; Primary hypertension (CMS/HCC); Osteoarthritis of spine with radiculopathy, lumbar region; Primary osteoarthritis of both knees; Primary osteoarthritis of left hip; Punctate keratitis of both eyes; Sensorineural hearing loss, bilateral; Multiple perforations of right tympanic membrane; Left ventricular hypertrophy; History of TIA (transient ischemic attack); History of left hip replacement; Family history of heart disease; SCHOFIELD (dyspnea on exertion) Start: 09-28-2024 End: 09-28-2024 ambulatory JOLEEN COURTNEY Not Available Start: 09-20-2024 End: 09-20-2024 ambulatory Bous Rich Vega MD Facility:[facility] Start: 09-01-2024 End: 09-01-2024 Clinisync Result Encounter Generic External Data Provider [facility] External Department Unsolicited Start: 09-01-2024 End: 09-01-2024 Clinisync Result Encounter Generic External Data Provider [facility] External Department Unsolicited Start: 08-25-2024 End: 08-25-2024 Clinisync Result Encounter Generic External Data Provider [facility] External Department Unsolicited Start: 08-25-2024 End: 08-25-2024 Clinisync Result Encounter Generic External Data Provider [facility] External Department Unsolicited Start: 08-16-2024 End: 08-16-2024 ambulatory Lala Vega MD Facility:[facility] Start: 08-06-2024 End: 08-06-2024 Telephone encounter Joleen Courtney PA Work Phone: [facility] Start: 07-29-2024 End: 07-29-2024 ambulatory [facility] Start: 07-27-2024 End: 07-27-2024 Bamboo flowsheet Joleen Courtney PA Work Phone: [facility] Start: 07-27-2024 End: 07-27-2024 Bamboo flowsheet Joleen Courtney PA Work Phone: [facility] Start: 07-27-2024 End: 07-27-2024 Office outpatient visit 25 minutes Joleen Courtney PA Work Phone: [facility] Comment on above: Atypical chest pain (Primary Dx); Primary hypertension (CMS/HCC); Left ventricular hypertrophy; Obstructive hypertrophic cardiomyopathy (CMS/HCC); SCHOFIELD (dyspnea on exertion); Leukocytosis, unspecified type; Family history of heart disease Start: 07-27-2024 End: 07-27-2024 ambulatory JOLEEN COURTNEY Not Available Start: 06-23-2024 End: 06-23-2024 Bamboo flowsheet Joleen Courtney PA Work Phone: [facility] Start: 06-23-2024 End: 06-23-2024 Bamboo flowsheet Joleen Courtney PA Work Phone: [facility] Start: 06-23-2024 End: 06-23-2024 Office outpatient visit 15 minutes Joleen Courtney PA Work Phone: [facility] Comment on above: Primary osteoarthrit is of right knee (Primary Dx); Chronic pain of right knee; Morbid (severe) obesity due to excess calories (CMS/HCC) Start: 06-23-2024 End: 06-23-2024 ambulatory JOLEEN COURTNEY Not Available Start: 05-31-2024 End: 05-31-2024 ambulatory [facility] Start: 05-24-2024 End: 05-24-2024 Telephone encounter Lindsey Raymundo MD Work Phone: [facility] Start: 05-04-2024 End: 05-04-2024 Bamboo flowsheet Lidnsey Raymundo MD Work Phone: [facility] Start: 05-04-2024 End: 05-04-2024 Bamboo flowsheet Lindsey Raymundo MD Work Phone: [facility] Start: 05-04-2024 End: 05-04-2024 Office outpatient visit 10 minutes Lindsey Raymundo MD Work Phone: [facility] Comment on above: ETD (Eustachian tube dysfunction), right (Primary Dx) Start: 05-04-2024 End: 05-04-2024 ambulatory LINDSEY RAYMUNDO Not Available Start: 04-12-2024 End: 04-12-2024 Bamboo flowsheet [place] Bright MD Work Phone: [facility] Start: 04-12-2024 End: 04-12-2024 Bamboo flowsvenus Bright MD Work Phone: [facility] Start: 04-12-2024 End: 04-12-2024 ambulatory [place] BRIGHT Not Available Start: 04-12-2024 End: 04-12-2024 Office outpatient visit 25 minutes [place] Bright MD Work Phone: [facility] Comment [...] Start: 02-04-2024 End: 02-04-2024 Bamboo flowsheet Afia Jannette [employer] Work Phone: [facility] Start: 02-04-2024 End: 02-04-2024 Bamboo flowsheet Afia Bhatia [employer] CCC-A Work Phone: [facility] Start: 02-04-2024 End: 02-04-2024 Clinical Support Afia Bhatia Desean [employer] Work Phone: [facility] Comment on [...] 01-26-2024 End: 01-26-2024 Bamboo flowsheet Yaa Duke ONCOLOGY CONSULTANT Work Phone: [facility] Start: 01-26-2024 End: 01-26-2024 Bamboo flowsheet Yaa Duke ONCOLOGY CONSULTANT Work Phone: [facility] Start: 01-26-2024 End: 01-26-2024 Office outpatient visit 25 minutes Yaa Duke ONCOLOGY CONSULTANT Work Phone: [facility] Comment on above: Right knee pain, uns pecified chronicity (Primary Dx); Arthritis of right knee Start: 01-26-2024 End: 01-26-2024 ambulatory YAA DUKE Not Available Start: 12-23-2023 End: 12-23-2023 Patient encounter status Teodora Chadwick DO Work Phone: [facility] Work Phone: Start: 12-23-2023 End: 12-23-2023 Periodic preventive med est patient 65yrs& older Teodora Chadwick DO Work Phone: [facility] Comment on above: Encounter for gyneco logical examination without abnormal finding (Primary Dx); Encounter for screening for malignant neoplasm of vagina; Encounter for screening mammogram for breast cancer; Screening for osteoporosis; Postmenopausal status, age-related; Weight gain Start: 07-24-2022 End: 07-25-[address] SVEN PENG Facility:[facility] Start: 06-25-2022 ambulatory OVIDIO LANDRUM Facility:[facility] Start: 04-05-2022 End: 04-05-2022 ambulatory ASHTYN CALERO . Facility:[facility] Start: 02-08-2022 End: 02-08-2022 ambulatory Staci Esquivel Other [facility] Other Start: 02-08-2022 Office outpatient ne w 20 minutes Staci Esquivel [facility] Start: 01-31-2022 End: 02-01-[address] DARYL BELTRAN . Facility:[facility] Start: 12-07-2021 End: 12-08-[address] SVEN PENG Facility:[facility] Start: 10-16-2021 End: 10-17-2021 ambulatory PHYSICIAN UNKNOWN Facility:[facility] Start: 09-07-2021 End: 09-08-[address] SVEN PENG Facility:[facility] Start: 09-05-2021 End: 09-06-[address] SVEN PENG Facility:[facility] Procedures Date Procedure Procedure Detail Performing Clinician Start: 01-21-2025 End: 01-21-2025 Arthrocentesis aspir&/inj major jt/bursa w/o us Joleen DALEY Work Phone: Start: 01-19-2025 MM TOMOSYNTHESIS SCREENING BI Generic External Data Provider Start: 11-16-2024 Radex hip unilateral with pelvis 2-3 views Ramiro DALEY Work Phone: Start: 10-15-2024 Arthrocentesis aspir&/inj major jt/bursa w/o us Joleen DALEY Work Phone: Start: 09-01-2024 XR LUMBAR SPINE 6V W BENDING Generic External Data Provider Start: 08-25-2024 CA ECHO DOPPLER COMPLETE Generic Externa l Data Provider Start: 06-23-2024 Arthrocentesis aspir&/inj major jt/bursa w/o us Joleen DALEY Work Phone: Start: 04-12-2024 CRYOTHERAPY SKIN LESION [place] Bright MD Work Phone: Start: 03-24-2024 ALL CBC WITH AUTO DIFF Generic External Data Provider Start: 02-04-2024 AUDITORY FUNCTION TESTS Afia Powers CCC-A Work Phone: Start: 01-28-2024 Urnls dip stick/tablet rgnt non-auto w/o micrscp Joleen DALEY Work Phone: Start: 01-26-2024 Arthrocentesis aspir&/inj major jt/bursa w/o Yaa Lopez Leilani ONCOLOGY CONSULTANT Work Phone: Start: 10-20-2019 End: 07-14-2023 H/O: artificial joint History of artificial joint Teodora Chadwick DO Work Phone: Plan of Treatment Date Care Activity Detail Author Start: 01-11-2026 End: 01-11-2026 Patient encounter procedure 01/11/2026 11:00 AM EDT Office Visit [facility] [address] [place] [id number] Teodora Chadwick DO [address] [place] [address] [facility] Start: 10-18-2025 Influenza vaccination Influenza Vacc ine (#1) [facility] Comment on above: Postponed from 12/20 (Patient Refused) Start: 09-28-2025 Medicare Annual Wellness (AWV) Medicare Annual Wellness (AWV) [facility] Start: 04-12-2025 End: 04-12-2025 Patient encounter procedure [facility] Start: 01-20-2025 End: 01-20-2025 Patient encounter procedure 01/20/2025 2:00 PM EDT Office Visit [facility] [address] [facility] [address] [place] [id number] Joleen Courtney PA [address] [facility] [address] [place] [address] [facility] Start: 12-30-2024 End: 12-30-2024 Patient encounter procedure [facility] Comment on above: Vaginal atrophy; Encounter for screening mammogram for breast cancer Start: 12-22-2024 Medicare Annual Wellness (AWV) Medicare Annual Wellness (AWV) [facility] Start: 12-20-2024 Influenza vaccination Influenza Vacc ine (#1) [facility] Start: 11-16-2024 End: 11-16-2024 Patient encounter procedure 11/16/2024 1:15 PM EDT Office Visit [facility] [address] [place] [id number] Ramiro Fiore PA [address] [place] [id number] [facility] Comment on above: Arrived Start: 10-15-2024 End: 10-15-2024 Patient encounter procedure 10/15/2024 8:30 AM EDT Office Visit [facility] [address] [place] [address] Joleen Courtney PA [address] [place] [address] [facility] Start: 10-07-2024 End: 10-07-2024 Patient encounter procedure 10/07/2024 1:00 PM EDT Office Visit [facility] [address] [place] [address] Chet Schulte, MAILE [address] [place] [address] [facility] Start: 09-28-2024 End: 09-28-2024 Patient encounter procedure [facility] Comment on above: Arrived Start: 09-08-2024 End: 09-08-2024 Patient encounter procedure 09/08/2024 10:30 AM EDT Office Visit [facility] [address] [place] [address] Joleen Courtney PA [address] [place] [address] [facility] Start: 07-28-2024 End: 07-28-2024 Patient encounter procedure 07/28/2024 2:00 PM EDT Office Visit [facility] [address] [place] [address] [facility] Start: 07-27-2024 End: 07-27-2024 Patient encounter procedure 07/27/2024 11:00 AM EDT Office Visit [facility] [address] [place] [address] Joleen Courtney, PA [address] [place] [address] Arrived [facility] Comment on above: Arrived Start: 06-23-2024 End: 06-23-2024 Patient encounter procedure 06/23/2024 11:00 AM EST Office Visit [facility] [address] [place] [address] Joleen Courtney PA [address] [place] [address] Arrived [facility] Comment on above: Arrived Start: 06-09-2024 End: 06-09-2024 Patient encounter procedure 06/09/2024 9:30 AM EST Office Visit [facility] [address] [place] [address] [facility] Start: 05-12-2024 End: 05-12-2024 Patient encounter procedure 05/12/2024 9:00 AM EST Office Visit [facility] [address] [place] [address] [facility] Start: 05-04-2024 End: 05-04-2024 Patient encounter procedure [facility] Comment on above: Arrived Start: 04-26-2024 End: 04-26-2024 Clinical Support 04/26/2024 9:45 AM EST Clinical Support [facility] [address] [place] [address] Afia Powers, [facility] [address] [place] [address] [facility] Start: 04-12-2024 End: 04-12-2024 Patient encounter procedure 04/12/2024 11:05 AM EST Office Visit [facility] [address] [place] [address] [place] Bright MD [address] [place], [place] [id number] [facility] Start: 03-02-2024 End: 03-02-2024 Patient encounter procedure 03/02/2024 11:15 AM EST Office Visit [facility] [address] [place] [address] [place] Bright MD [address] [place] [address] [facility] Start: 02-11-2024 End: 02-11-2024 Patient encounter procedure [facility] Comment on above: Arrived Start: 02-04-2024 End: 02-04-2024 Clinical Support [facility] Comment on above: Arrived Start: 01-28-2024 End: 01-28-2024 Patient encounter procedure 01/28/2024 1:30 PM EDT Office Visit [facility] [address] [place] [address] Joleen Courtney PA [address] [place] [address] Arrived [facility] Comment on above: Arrived Start: 01-26-2024 End: 01-26-2024 Patient encounter procedure 01/26/2024 10:45 AM EDT Office Visit [facility] [address] [place] [address] Yaa Duke, ONCOLOGY CONSULTANT [address] [place] [address] Arrived [facility] Comment on above: Arrived Start: 01-20-2024 End: 01-20-2024 Patient encounter procedure 01/20/2024 11:20 AM EDT Office Visit [facility] [address] [place] [address] [place] Bright MD [address] [place] [address] [facility] Start: 12-21-2023 Influenza vaccination Influenza Vacc ine (#1) [facility] DBT Breast - bilater al screening Bilateral screening mammogram with tomosynthesis Imaging Routine Encounter for screening mammogram for breast cancer Ordered: 12/23/2023 [facility] Comment on above: Ordered: 12/23/2023 DBT Breast - bilater al screening Bilateral screening mammogram with tomosynthesis Imaging Routine Encounter for screening mammogram for breast cancer Ordered: 12/30/2024 [facility] Work Phone: Comment on above: Ordered: 12/30/2024 DXA Skeletal system Views for bone density DEXA bone density Imaging Routine Screening for osteoporosis Postmenopausal status, age-related Ordered: 12/23/2023 [facility] Comment on above: Ordered: 12/23/2023 Lipid 1996 panel - Serum or Plasma Lipid panel Lab Routine Medicare annual wellness visit, subsequent Primary hypertension (CMS/HCC) Ordered: 09/28/2024 [facility] Work Phone: Comment on above: Ordered: 09/28/2024 SENDOUT TEST MISCELLANEOUS [facility] SENDOUT TEST MISCELLANEOUS [facility] Lab Routine Encounter for screening for malignant neoplasm of vagina Ordered: 12/23/2023 [facility] Work Phone: Comment on above: Ordered: 12/23/2023 TSH W/REFLEX TO FT4 TSH W/REFLEX TO FT4 Lab Routine Medicare annual wellness visit, subsequent Weight gain Ordered: 09/28/2024 [facility] Comment on above: Ordered: 09/28/2024 URINARY TRACT INFECT ION (HTRX) URINARY TRACT INFECTION (HTRX) Lab Routine Urine abnormality Abnormal urinalysis Ordered: 01/28/2024 [facility] Work Phone: Comment on above: Ordered: 01/28/2024 Immunizations Immunization Date Immunization Notes Care Provider Fa cility 06-25-2024 RSV, recombinant, pr otein subunit RSVpreF, adjuvant reconstitu, 120mcg/0.5mL, PF (Arexvy) Joleen Courtney PA Work Phone: [facility] 01-28-2024 Influenza, High-dose Seasonal, Quadrivalent, Preservative Free Joleen DALEY Work Phone: [facility] 01-28-2024 influenza virus vacc ine, unspecified formulation Ramiro Fiore PA Work Phone: [facility] 02-05-2023 Influenza, Seasonal, Quadrivalent, Adjuvanted Joleen DALEY Work Phone: [facility] 02-05-2023 influenza virus vacc ine, unspecified formulation Teodora Chadwick DO Work Phone: [facility] 04-05-2022 diphtheria, tetanus toxoids and pertussis vaccine Teodora Rinkes DO Work Phone: [facility] 03-25-2022 influenza, high dose seasonal, preservative-free Teodora Rinkes DO Work Phone: [facility] 01-25-2021 Influenza, High-dose Seasonal, Quadrivalent, Preservative Free Teodora Rinkes DO Work Phone: [facility] 02-25-2020 Influenza, Seasonal, Quadrivalent, Adjuvanted Teodora Rinkes DO Work Phone: [facility] 10-11-2019 pneumococcal polysaccharide vaccine, 23 valent Teodora Rinkes DO Work Phone: [facility] 06-06-2019 zoster vaccine recombinant K katty Chadwick DO Work Phone: [facility] 01-28-2019 influenza, high dose seasonal, preservative-free Teodora Rinkes DO Work Phone: [facility] 02-13-2018 influenza, high dose seasonal, preservative-free Teodora Rinkes DO Work Phone: [facility] 01-08-2018 pneumococcal conjuga te vaccine, 13 valent Teodora Rinkes DO Work Phone: [facility] 02-12-2017 Influenza, High-dose Seasonal, Quadrivalent, Preservative Free Teodora Rinkes DO Work Phone: [facility] 01-27-2002 zoster vaccine, live Irineo Chadwick DO Work Phone: [facility] Payers Date Payer Category Payer Private Health Insurance 2020 Medicare [employer] MEDICARE ADVANTAGE [employer] MEDICARE [id number] 2020-Present [address] [address] [place] [address] [id number] 2020 Medicare (Managed Care) [employer] EDICARE ADVANTAGE [id number] 1959 Private Health Insurance [id number] 1950 Unknown [id number] 2.840.1.307008.3.579. 2.647 1950 Unknown [id number] 2.840.1.414206.3.579. 2.593 1948 Unknown [id number] 2.840.1.916419.3.579. 2.593 1948 Unknown [id number] 2.16.840.1.221613.3.579. 2.593 1948 Unknown [id number] 2.16840.1.941084.3.579. 2.593 1948 Unknown [id number] 2.16.840.1.814618.3.579. 2.593 1948 Unknown [id number] 2.16840.1.297258.3.579. 2.593 1948 Unknown [id number] 2.16.840.1.681497.3.579. 2.593 1948 Unknown [id number] 2.16.840.1.446761.3.579. 2.196 1948 Unknown [id number] 2.16.840.1.816806.3.579. 2.196 1948 Unknown [id number] 2.16.840.1.954817.3.579. 2.1259 1948 Unknown [id number] 2.16.840.1.649440.3.579. 2.125 1948 Unknown [id number] 2.16.840.1.393443.3.579. 2.125 1948 Unknown [id number] 2.16.840.1.821209.3.579. 2.125 1948 Unknown [id number] 2.16.840.1.338638.3.579. 2.125 1948 Unknown [id number] 2.16.840.1.301731.3.579. 2.125 1948 Unknown [id number] 2.16.840.1.258715.3.579. 2.125 1948 Unknown [id number] 2.16.840.1.124216.3.579. 2.125 1948 Unknown [id number] 2.16.840.1.960198.3.579. 2.125 1948 Unknown [id number] 2.16.840.1.267588.3.579. 2.125 1948 Unknown [id number] 2.16.840.1.938733.3.579. 2.125 1948 Unknown [id number] 2.16.840.1.696717.3.579. 2.1258 Unknown [id number] 2.16.840.1.909837.3.579. 2.1259 1948 Unknown [id number] 2.16.840.1.395340.3.579. 2.1259 Social History Date Type Detail Facility Start: 05-18-2023 End: 07-21-2024 Sex Assigned At [facility] Start: 12-03-2022 End: 05-04-2024 Tobacco smoking status [facility] Ex-smoker [facility] Start: 11-19-1966 End: 04-21-2007 History of tobacco use Current smoker [facility] Start: 11-19-1966 End: 04-21-2007 History of tobacco use Cigarette Smoker [facility] Start: 12-03-2022 End: 07-21-2024 Cigarettes smoked current (pack per day) - Reported 1 [facility] Start: 12-03-2022 End: 05-04-2024 Tobacco use and exposure Smokeless tobacco non-user [facility] Start: 01-26-2024 End: 01-20-2025 Alcoholic beverage intake Current drinker of alcohol [...] Sexual orientation Heterosexual (fin ding) [facility] How often do you nee d to have someone help you when you read instructions, pamphlets, or other written material from your doctor or pharmacy [SILS] Never [facility] Do you belong to any clubs or organizations such as evangelical groups, unions, fraternal or athletic groups, or school groups? No [facility] Are you now , , , , never or living with a partner? [facility] How often to you hav e a drink containing alcohol? 2-4 times a month [facility] How hard is it for y ou to pay for the very basics like food, housing, medical care, and heating Not very hard [facility] Do you feel stress - tense, restless, nervous, or anxious, or unable to sleep at night because your mind is troubled all the time - these days [OSQ] Only a little [facility] (I/We) worried wheth er (my/our) food would run out before (I/we) got money to buy more. Never true [facility] Functional Status Date Assessment Result Facility 01-20-2025 Patient Health Quest ionnaire 2 item (PHQ-2) [Reported] [facility] 09-28-2024 Patient Health Quest ionnaire 2 item (PHQ-2) [Reported] [facility] Clinical Notes 01-31-2022 to 01-24-2025 THUY Brown - 01/20/2025 2:00 PM Bethany Chadwick DO - 12/30/2024 11:00 AM THUY Myers - 11/16/2024 1:15 PM THUY Banda - 10/15/2024 8:30 AM EDT Note Date & Type Note Facility 01-24-2025 Note [facility] - [facility] Subjective Teodora Daily is a 75 y.o. year old adult patient being seen for 6 mo follow up hypertension, palpitations, and dyspnea. Had echo in August 2024. Metoprolol was increased to 37.5mg daily at last visit. Patient called in September 2024 stating she increased her metoprolol on her own to 50mg. PCP's office recently started her on torsemide and potassium due to LE edema. These have helped she says, but she planned on stopping them in a few more days and then only take prn. Says she gets stabbing chest pain about twice a week, lasting seconds or less. Patient attributes her SOB to her weight and inability to exercise due to back and knee pain. Had labs in September 2024. Patient Active Problem List Diagnosis Primary hypertension [...] loss, bilateral Overactive bladder Osteopenia Sjogren's syndrome Essential hypertension Bilateral lower extremity edema Decreased [...] of both eyes TIA (transient ischemic attack) [place] (dyspnea on exertion) Family history of heart disease Pulmonary hypertension, unspecified (CMS/HCC) Current mild episode of major depressive disorder without prior episode Family History Problem Relation Name Age of [...] which goes for a autosomal recessive condition. At visit of 09/17/2023 I checked an echocardiogram and an event monitor due to her palpitations and shortness of breath. I also checked a stress test. the investigation was nonrevealing. more recently she was evaluated in our clinic on 07/29/2024 by MAILE Arvizu due to palpitations. Her metoprolol was increased to 37.5 mg once daily. This was later increased by her PCP to 50 mg once daily. Today she reports that her palpitations have nearly subsided. She recently underwent an echocardiogram that showed normal ventricular function and no significant valvular dysfunction with normal right-sided pressures. She has been having bilateral lower extremity edema which she relates to not being able to the significantly ambulatory. This is due to her back pain limitations. She was started on torsemide and potassium by her PCP. Her leg swelling has resolved. otherwise she reports a sharp left-sided chest pain that happens briefly related to movement and respiration. She will be moving soon to [place]. Review of Systems Constitutional: Positive for weight gain (21# since August 2023). HENT: Positive for hearing loss. Cardiovascular: Positive (more content not included)... [facility] 01-20-2025 History of Present illness Narrative Associated Order(s): Arthrocentesis; Arthrocentesis Images from the original note were not included. HPI Knee Pain Additional comments: Complains of bilateral knee pain. Her last right knee injection was 10/15/24. Found it very helpful. Last edited by THUY Brown on 01/21/2025 7:46 AM. Subjective Patient ID: Teodora Daily is a 75 y.o. female who presents for anxiety. Teodora is present today for evaluation of anxiety. Admits she does have Lorazepam and it does help. She received a letter from her insurance that at her age she should not be on Paroxetine and should be on either Bupropion, Citaloram, Duloxetine, Escitalopram, Fluoxetine, Mirtazapine, Sertraline, Trazodone or Venlafaxine. Pt's daughter still will not talk to patient. Planning on moving back to [place] soon. Recently sold her house. Planning to move in a month or so. Over the past 2 weeks, how often have you been bothered by any of the following problems? Little interest or pleasure in doing things: Not at all (currently on medication) Feeling down, depressed, or hopeless: Not at all (currently on medication) Patient Health Questionnaire-2 Score: 0 Current Outpatient Medications on File Prior to Visit Medication Sig Dispense Refill baclofen (Lioresal) 10 MG tablet Take 10 mg by mouth in the morning and 10 mg in the evening and 10 mg before bedtime. [DISCONTINUED] pregabalin (Lyrica) 50 MG capsule Take 50 mg by mouth in the morning and 50 mg before bedtime. Ascorbic Acid (Vitamin C) 500 MG capsule Take by mouth aspirin 81 MG chewable tablet Chew 1 tablet twice a day by oral route. cyanocobalamin (Vitamin B-12) 100 MCG tablet Vitamin B12 fluticasone (Flonase) 50 MCG/ACT nasal spray Administer 1 spray into each nostril Daily Shake gently. Before first use, prime pump. After use, clean tip and replace cap. irbesartan (Avapro) 150 MG tablet TAKE 1 TABLET BY MOUTH EVERY DAY 100 tablet 3 LORazepam (Ativan) 0.5 MG tablet Take 1 tablet (0.5 mg) by mouth every 6 (six) hours if needed for anxiety for up to 14 days 28 tablet 0 metoprolol succinate XL (Toprol-XL) 50 MG 24 hr tablet TAKE 1 TABLET BY MOUTH EVERY DAY DIRECTED. DO NOT CRUSH OR CHEW Multiple Vitamins-Minerals (Centrum Silver) chewable tablet every 12 (twelve) hours. nystatin (Mycostatin) 365684 UNIT/GM powder Apply to the affected area, once daily, 30 day supply 60 g 11 [DISCONTINUED] PARoxetine (Paxil) 20 MG tablet TAKE 1 [...] COLONOSCOPY 2013 FOOT SURGERY multiple foot sx, [id number] HYSTERECTOMY 1998 IR ABLATION BONE 12/15/2018 LT RFA T12-L3 IR INJECTION NERVE BLOCK 04/09/2018 L2-L5 nerve blocks IR INJECTION NERVE BLOCK Left 07/21/2018 T12-L3 nerve blocks LUMBAR EPIDURAL INJECTION 04/03/2021 OTHER SURGICAL HISTORY 1985 T Tube, [place] PARTIAL HIP REPLACEMENT 08/2018 TOE SURGERY TONSILLECTOMY TOTAL HIP ARTHROPLASTY Left 09/07/2018 Dr Neves TYMPANOSTOMY TUBE PLACEMENT Right 04/01/24 Dr Raymundo Visit Vitals BP 104/66 Pulse 77 Resp 16 Ht 5' 2.5 Wt 209 lb 9.6 oz SpO2 95% BMI 37.73 kg/m Smoking Status Former BSA 2.05 m Review of Systems Constitutional: Negative for chills, fatigue and fever. Respiratory: Negative for cough, shortness of breath and wheezing. Cardiovascular: Negative for chest pain, palpitations and leg swelling. Gastrointestinal: Negative for abdominal pain, constipation, diarrhea, nausea and vomiting. Musculoskeletal: Positive for arthralgias. Skin: Negative for rash. Psychiatric/Behavioral: Positive for dysphoric mood. The patient is nervous/anxious. Objective Physical Exam Constitutional: General: She is not in acute distress. Appearance: She is well-developed. She is obese. HENT: Head: Normocephalic and atraumatic. Eyes: General: No scleral icterus. Conjunctiva/sclera: Conjunctivae normal. Cardiovascular: Rate and Rhythm: Normal rate and regular rhythm. Heart sounds: Normal heart sounds. No murmur heard. Pulmonary: Effort: Pulmonary effort is normal. No respiratory distress. Breath sounds: Normal breath sounds. No wheezing, rhonchi or rales. Musculoskeletal: Right knee: Effusion and crepitus (severe) present. Decreased range of motion. Left knee: Effusion and crepitus present. Decreased range of motion. Right lower leg: Edema present. Left lower leg: Edema present. Skin: General: Skin is warm and dry. Neurological: General: No focal deficit present. Mental Status: She is alert and oriented to person, place, and time. Gait: Gait abnormal (Antalgic gait). Psychiatric: Mood and Affect: Mood normal. Behavior: Behavior normal. Arthrocentesis Date/Time: 01/21/2025 7:53 AM Performed by: THUY Brown Authorized by: THUY Brown Consent: Consent obtained: Verbal Consent given by: Patient Risks, benefits, and alternatives were discussed: yes Risks discussed: Bleeding, infection and pain Alternatives discussed: No treatment and alternative treatment Location: Location: Knee Knee: L knee Anesthesia: Anesthesia method: Local infiltration Local anesthetic: Bupivacaine 0.5% w/o epi (0.5 cc) Procedure details: Needle gauge: 21 G. Ultrasound guidance: no Approach: Lateral Steroid injected: yes (Depo-Medrol 80 mg) Specimen collected: no Post-procedure details: Dressing: Adhesive bandage Procedure completion: Tolerated well, no immediate complications Arthrocentesis Date/Time: 01/21/2025 7:55 AM Performed by: THUY Brown Authorized by: THUY Brown Consent: Consent obtained: Verbal Consent given by: Patient Risks, benefits, and alternatives were discussed: yes Risks discussed: Bleeding, infection and pain Alternatives discussed: No treatment and alternative treatment Location: Location: Knee Knee: R knee Anesthesia: Anesthesia method: Local infiltration Local anesthetic: Bupivacaine 0.5% w/o epi (0.5 cc) Procedure details: Needle gauge: 21 G. Ultrasound guidance: no Approach: Medial Steroid injected: yes (Depo-Medrol 80 mg) Specimen collected: no Post-procedure details: Dressing: Adhesive bandage Procedure completion: Tolerated well, no immediate complications Assessment/Plan Diagnoses and all orders for this visit: Primary osteoarthritis of both knees - methylPREDNISolone acetate (DEPO-Medrol) injection 80 mg - methylPREDNISolone acetate (DEPO-Medrol) injection 80 mg - Arthrocentesis - Arthrocentesis Reviewed previous x-rays with patient and reviewed knee anatomy with the patient in detail. Discussed treatment options with the patient. OTC treatments are no longer sufficiently effective. Potential risks and benefits of knee injections were again reviewed with the patient, including but not limited to, reaction to the medication, infection, failure to improve and possible worsening of symptoms. Patient voiced understanding, and chose to proceed with bilateral knee injections. Advised pt that if there is not significant relief from the injection, a referral to Orthopedics for further evaluation would be warranted. Patient voiced understanding. Depo-Medrol was injected into patient's knees. Pt tolerated this well and neurovascular status was intact following the injection. Post injection instructions were reviewed with patient. Reviewed s/s of infection. Patient is to contact the office with any concerns. Bilateral lower extremity edema - torsemide (Demadex) 10 MG tablet; Take 1 tablet (10 mg) by mouth Daily - potassium chloride CR (Klor-Con M10) 10 MEQ ER tablet; Take 1 tablet (10 mEq) by mouth Daily Do not crush or chew. Provided pt with prescriptions for Torsemide and Potassium to start once a day in the morning. Encouraged her to elevate her legs when possible. Consider compression stockings. Contact office if does not improve. Current mild episode of major depressive disorder without prior episode - DULoxetine (Cymbalta) [address] capsule; Take 1 capsule (30 mg) by mouth Daily Do not crush or chew. Patient would like to try something different for her anxiety/depression. Will have patient decrease the Paxil to 10 mg for the next 2 weeks. Discussed options with pt. She would like to try Cymbalta. Advised this should help with her mood as well as potentially helping with her chronic pain. She can start taking the Cymbalta the last few days of her Paxil dosage. Contact office with any concerns regarding the transition between the medications. ER if concerns. Follow up if symptoms worsen or fail to improve, for Appt if Needed, Pt Moving to [place]. documented in this encounter [facility] 12-30-2024 History of Present illness Narrative Images from the original note were not included. Teodora Chadwick D.O. Obstetrics and Gynecology Patient: Teodora Daily : 1950 (74 y.o.) Yearly Wellness Exam Date: 12/30/2024 Reason for Visit - Chief Complaint Patient presents with Gynecologic Exam Denies concerns. Denies vaginal/bladder Visit Vitals BP 128/70 Wt 206 lb BMI 37.08 kg/m Smoking Status Former BSA 2.03 m Allergies Allergen Reactions Sulfa Antibiotics Anaphylaxis, [...] Term 1 Term Obstetric Comments Pap smear 12/23/23 wnl, Mammogram 01/15/24 wnl @ [place], DEXA 01/15/24 Review of Systems - General: Chills denies. [...] Review Audit Reviewed by Joana Ruvalcaba MA (Drawing Kiln Supervisor) on 12/30/24 at 1058 Medication Order Taking? Sig Documenting Provider Last Dose Status Ascorbic Acid (Vitamin C) 500 MG capsule [id number] Take by mouth THUY Brown Active aspirin 81 MG chewable tablet [id number] Chew 1 tablet twice a day by oral route. Historical Provider, Active Discontinued 12/30/24 1058 cyanocobalamin (Vitamin B-12) 100 MCG tablet [id number] Vitamin B12 Historical Provider, Active fluticasone (Flonase) 50 MCG/ACT nasal spray [id number] Administer 1 spray into each nostril Daily Shake gently. Before first use, prime pump. After use, clean tip and replace cap. THUY Brown Active Discontinued 12/30/24 1058 irbesartan (Avapro) 150 MG tablet [id number] TAKE 1 TABLET BY MOUTH EVERY DAY Sven Peng MD Active LORazepam (Ativan) 0.5 MG tablet [id number] Take 1 tablet (0.5 mg) by mouth every 6 (six) hours if needed for anxiety for up to 14 days THUY Brown 10/15/24 2359 metoprolol succinate XL (Toprol-XL) 50 MG 24 hr tablet [id number] TAKE 1 TABLET BY MOUTH EVERY DAY DIRECTED. DO NOT CRUSH OR CHEW THUY Brown Active Multiple Vitamins-Minerals (Centrum Silver) chewable tablet [id number] every 12 (twelve) hours. Historical Provider, Active nystatin (Mycostatin) 726054 UNIT/GM powder [id number] Apply to the affected area, once daily, 30 day supply Jose Bright MD Active PARoxetine (Paxil) 20 MG tablet [id number] TAKE 1 TABLET BY MOUTH EVERY DAY IN THE MORNING THUY Brown Active Past Medical History: Diagnosis Date Allergic [...] COLONOSCOPY 2013 FOOT SURGERY multiple foot sx, [id number] HYSTERECTOMY 1998 IR ABLATION BONE 12/15/2018 LT RFA T12-L3 IR INJECTION NERVE BLOCK 04/09/2018 L2-L5 nerve blocks IR INJECTION NERVE BLOCK Left 07/21/2018 T12-L3 nerve blocks LUMBAR EPIDURAL INJECTION 04/03/2021 OTHER SURGICAL HISTORY 1985 [address], [place] PARTIAL HIP REPLACEMENT 08/2018 TOE SURGERY TONSILLECTOMY TOTAL HIP ARTHROPLASTY Left 09/07/2018 Dr Neves TYMPANOSTOMY TUBE PLACEMENT Right 04/01/24 Dr Raymundo Family History Problem Relation Name Age of Onset Alzheimer's disease Mother Mariah Hypertension Mother Mariah Pernicious anemia Father Alcohol abuse Father Suicidality Paternal Grandfather Heart disease Sibling Heart failure Sister Idny, Mey Heart failure Brother Suleman Hypertension Sister [...] BREASTS: no masses palpable bilaterally, normal nipples bilaterally. ABDOMEN: soft, nontender, nondistended, no masses palpable. BACK: no costovertebral angle tenderness, no obvious scoliosis/kyphosis. FEMALE GENITOURINARY: atrophic vaginal mucosa, cervix/uterus surgically absent, adnexa WNL EXTREMITIES: no edema. NEUROLOGIC: alert and oriented. PSYCH: cooperative with exam. Diagnoses and all orders for this visit: Vaginal atrophy Encounter for screening mammogram for breast cancer - Bilateral screening mammogram with tomosynthesis Pelvic and breast exam completed. Findings of today's exam discussed with the patient. Continue MSBE. Ca/Vit D recommendations reviewed with the patient. The patient is to contact the office with any changes to her gynecological condition. The patient is to return in 1 year or as needed ICD-10-CM 1. Vaginal atrophy N95.2 2. Encounter for screening mammogram for breast cancer Z12.31 Bilateral screening mammogram with tomosynthesis documented in this encounter [facility] 11-30-2024 Note Neurosurgery Clinic Note Chief Complaint: History of Present Illness: Teodora Daily is a 74 y.o. year-old adult who presents for evaluation for spinal cord stimulator trial. Her back pain began in 2017 following a left hip replacement. She was referred to pain management at that time and underwent an ablation, which provided long-lasting pain relief. In late 2021, her back pain returned, prompting her to resume pain management care. Since then, she has received sciatic nerve blocks with bilateral relief, as well as epidural injections. However, her last two visits did not provide meaningful improvement. She continue to attend physical therapy and water therapy. She reports that her back pain typically starts in the right lumbar region, radiates across to the left side, and extends into the buttocks area. She describes the pain as burning and hot. Sitting down and using ice packs provide relief while activities such as driving, doing dishes, or mopping exacerbate her symptoms, particularly if she pushes through the activity. Occasionally, the pain radiates towards her legs, predominantly her right leg, but describes the sensation more as heaviness and pressure. 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 She denies dizziness, vision changes, headaches, weakness, numbness or tingling, constipation or diarrhea. Problem List: Problem List[1] Past Medical History: Medical History[2] Past Surgical History: Surgical History[3] Medications: Current Outpatient Medications Medication Instructions aspirin 81 mg chewable tablet Chew 1 tablet twice a day by oral route. baclofen (Lioresal) 10 mg tablet TAKE 1/2 TO 1 TABLET BY MOUTH TWICE A DAY NEEDED cholecalciferol, vitamin D3, 50 mcg (2,000 unit) capsule 1 capsule irbesartan (AVAPRO) 75 mg, Daily LORazepam (ATIVAN) 0.5 mg, Every 6 hours PRN metoprolol succinate XL (TOPROL-XL) 25 mg, oral, Daily metoprolol succinate XL (TOPROL-XL) 50 mg, oral, Once Daily, Do not crush or chew. PARoxetine (PAXIL) 20 mg, Every morning pregabalin (Lyrica) 50 mg capsule 1 capsule, 2 times daily Allergies: Allergies[4] Review of Systems: Review of Systems Musculoskeletal: Positive for back and buttock pain Genitourinary: Positive for overactive bladder Exam: Vitals: Vitals: 11/30/24 1317 BP: 111/62 Pulse: 69 Resp: 17 Temp: 36.6 ???C (97.9 ???F) SpO2: 99% Body mass index is 38.04 kg/m???. General: Awake alert, NAD. HEENT: Normocephalic, atraumatic. Heart: Regular rate and rhythm. Lungs: Clear to auscultation bilaterally. Extremities: Mild edema in the proximal lower legs (states this is baseline) Neurologic: Appropriate affect during exam. Oriented x 3. Normal fluency and prosody of speech. Content appropriate and higher function appears intact. CN II-XII grossly intact. PERRL. EOMI. Face symmetric strength and sensation. Tongue midline. Shoulder shrug full strength and symmetric. Palate elevates symmetrically. Motor 5/5 throughout. No pronator drift. Sensation intact to light touch throughout. Finger to nose coordination intact. 2+ biceps, triceps, brachioradialis, patellar and ankle reflexes bilaterally. Absent babinski reflex bilaterally Lab: No visits with results within 30 Day(s) from this visit. Latest known visit with results is: No results found for any previous visit. Imaging: No results found for this or any previous visit from the past 360 days. Impression: Teodora Daily is a 74 y.o. adult presenting for evaluation for a spinal cord stimulator trial. Upon reviewing MRI lumbar images from 02/11, there appears to be age related L2-L5 degenerative disc changes, especially in L3-L4. However, no severe spinal stenosis was noted. Therefore, there is no clear indication for a neurosurgical intervention. This, coupled with her age and chronic back pain refractory to recent pain management injections, seems like a good candidate to attempt spinal cord stimulation therapy to manage her pain. Plan: Write a note to her pain management team stating that surgical options were discussed and ruled out and that spinal cord stimulation therapy/trial is acceptable. Follow up office appointment as needed Lenin Franks, MS3 [employer] As the teaching physician, I have personally performed or re-performed the history of present illness, physical exam and medical decision-making activities of the encounter and verified the medical student's documentation. I made pertinent changes as necessary to ensure accurate documentation. There may be additional comments below. Additional Comments: Please see my separately dictated note. [1] Patient Active Problem List Diagnosis Primary hypertension Intermittent palpitations (more content not included)... [facility] 11-30-2024 Note Neurosurgery Consult Chief Complaint: Chronic back pain. History of Present Illness: Teodora Daily is a 74 y.o. adult who presents in referral from [place] pain management for evaluation of chronic low back pain. The patient states that she has suffered from low back pain since approximately 2018 after she underwent a left hip replacement surgery. She had been referred to pain management and had undergone interventional procedures including what appears to have been a medial branch ablation with substantial relief in pain. While interventional procedures have been helpful in controlling her pain for years, pain has more recently become more resistant to these therapies. She states that the last 2 sets of injections were not helpful. She has never undergone spine surgery. Currently, pain is centered in the bilateral low back. It will radiate into the buttock but does not extend into the leg. It more often involves the right low back and radiates to the left side. She denies any brenda weakness but does note heavy feeling in her legs and states that they ache. She denies any brenda weakness. She presents today after recent evaluation in pain management clinic. She had recently discussed the options of considering surgical intervention or a trial of neuromodulation with spinal cord stimulation. Problem List: Problem List[1] Past Medical History: Medical History[2] Past Surgical History: Surgical History[3] Medications: Current Medications[4] Allergies: Allergies[5] Social History: Social History Socioeconomic History Marital status: Unknown Spouse name: Not on file Number of children: Not on file Years of education: Not on file Highest education level: Not on file Occupational History Not on file Tobacco Use Smoking status: Former Types: Cigarettes Smokeless tobacco: Never Substance and Sexual Activity Alcohol use: Not on file Comment: occasional Drug use: Not on file Sexual activity: Not on file Other Topics Concern Not on file Social History Narrative Not on file Social Drivers of Health Financial Resource Strain: Low Risk (07/21/2024) Received from [facility] Overall Financial Resource Strain (CARDIA) Difficulty of Paying Living Expenses: Not very hard Food Insecurity: No Food Insecurity (07/21/2024) Received from [facility] Hunger Vital Sign Worried About Running Out of Food in the Last Year: Never true Ran Out of Food in the Last Year: Never true Transportation Needs: No Transportation Needs (07/21/2024) Received from [facility] PRAPARE - Transportation Lack of Transportation (Medical): No Lack of Transportation (Non-Medical): No Physical Activity: Inactive (07/21/2024) Received from [facility] Exercise Vital Sign Days of Exercise per Week: 0 days Minutes of Exercise per Session: 0 min Stress: No Stress Concern Present (07/21/2024) Received from [facility] [employer] [place] [employer] - Occupational Stress Questionnaire Feeling of Stress : Only a little Social Connections: Moderately Isolated (07/21/2024) Received from [facility] Social Connection and Isolation Panel [NHANES] Frequency of Communication with Friends and Family: Three times a week Frequency of Social Gatherings with Friends and Family: Once a week Attends Mandaeism Services: Never Active Member of Clubs or Organizations: No Attends Club or Organization Meetings: Never Marital Status: Intimate Partner Violence: Unknown (11/30/2024) Humiliation, Afraid, Rape, and Kick questionnaire Fear of Current or Ex-Partner: No Emotionally Abused: Not on file Physically Abused: Not on file Sexually Abused: Not on file Housing Stability: Low Risk (07/21/2024) Received from [facility] Housing Stability Vital Sign Unable to Pay for Housing in the Last Year: No Number of Times Moved in the Last Year: 0 Homeless in the Last Year: No Family History: Family History[6] Review of Systems: Review of Systems Constitutional: Negative. HENT: Positive for rhinorrhea. Eyes: Negative. Respiratory: Positive for shortness of breath. Cardiovascular: Negative. Gastrointestinal: Negative. Endocrine: Negative. Genitourinary: Negative. Musculoskeletal: Positive for arthralgias and back pain. Skin: Negative. Allergic/Immunologic: Positive for environmental allergies. Neurological: Positive for weakness. Hematological: Bruises/bleeds easily. Answers submitted by the patient for this visit: Back Pain Questionnaire (Submitted on 11/25/2024) Chief Complaint: Back pain Chronicity: chronic Onset: more than 1 year ago Frequency: daily Progression since onset: gradually worsening Pain location: sacro-iliac Pain quality: aching, burning, stabbing Radiates to: left thigh, right thigh Pain - numeric: 9/10 Pain is: worse during the day Aggravated by: bending, coughing, position, standing, twisting S (more content not included)... [facility] 11-16-2024 History of Present illness Narrative Images from the original note were not included. Orthopedic Office note: NAME: Teodora Daily : 1950 (EST W/CHET) S/P LT MICHAEL 09/07/18 (~6 YRS 2 MTHS)-DR NEVES. XRAY TODAY EPIC 11/16/24 XRAY EPIC 09/30/23 WALKING UNASSISTED. STATES HIP IS DOING WELL. HAVING SOME LOW BACK PAIN. DENIES GIVING OUT. Hip Musculoskeletal Exam Gait Gait is normal. Inspection Leg length disparity: no discrepancy Left Erythema: none Ecchymosis: none Edema: none Deformity: none Previous incision: anterolateral Incision: well-healed Palpation Left Left hip palpation is normal. Increased warmth: none Tenderness: present Greater trochanteric region pain: none Pubic rami pain: none Lower lumbar region pain: moderate Range of Motion Left Left hip range of motion is within functional limits. Active ROM: normal and no pain. Passive ROM: normal and no pain. Strength Left Left hip strength is normal. Extension: 5/5. Flexion: 5/5. Internal rotation: 5/5. External rotation: 5/5. Adduction: 5/5. Abduction: 5/5. Neurovascular Left Left hip neurovascular exam is normal. Pulses - PT: normal Posterior tibial: 2+ General Constitutional: appears stated age Labored breathing: no Psychiatric: normal mood and affect Neurological: alert and oriented x3 Skin: intact Lymphadenopathy: none Orders Placed This Encounter Procedures XR hip left 2 or 3 views Reason for exam:: total Ambulatory referral to Physical Therapy Standing Status: Future Expected Date: 11/16/2024 Expiration Date: 05/19/2025 Referral Priority: Routine Referral Type: Consultation Referral Reason: Specialty Services Required Referral Location: [facility] Scheduling Requested Specialty: Physical Therapy Number of Visits Requested: 1 Procedures Results ICD-10-CM 1. History of left hip replacement Z96.642 2. Left hip pain M25.552 XR hip left 2 or 3 views 3. Acute bilateral low back pain without sciatica M54.50 Ambulatory referral to Physical Therapy Assessment & Plan Left hip pain: History of left hip replacement with current good status, reporting no pain. Examination reveals discomfort in the low back when standing and ambulating for more than 15 minutes, without radicular symptoms. Currently involved with pain management focusing on injections. Treatment plan: Aquatic therapy will be initiated to improve range of motion and decrease symptoms. Discussed the benefits of aquatic therapy, including reduced joint stress and improved mobility. Encouraged consistent participation in therapy sessions. Clinical decision making: No further concerns or questions were raised. PROCEDURE The patient has a history of left hip replacement. Questions answered in laymen terms at the bedside. The diagnosis, home exercise plan and any ongoing restrictions/ recommendations reviewed. If unable to be reached in office, I recommend evaluation at nearest Emergency Room if any symptoms worsened or new symptoms develop for requiring urgent evaluation. Visit was preformed using [employer] speech recognition. documented in this encounter [facility] 10-15-2024 History of Present illness Narrative Associated Order(s): Arthrocentesis Images from the original note were not included. Subjective Patient ID: Teodora Daily is a 74 y.o. female who presents for Knee Pain. Pt is here for knee pain and wanting to get an injection in her right knee. States has a consult in November to possibly have spinal stimulator implanted. She has had ALMAZ's and ablations, but is no longer getting relief. Has a lot of stress right now with her daughter, she has cut pt and her out of her life. Also has a lot of health issues going on right now. Current Outpatient Medications on File Prior to [...] After use, clean tip and replace cap. gabapentin (Neurontin) 100 MG capsule Take 100 mg by mouth in the morning and 100 mg in the evening and 100 mg before bedtime. irbesartan (Avapro) 150 MG tablet TAKE 1 TABLET BY MOUTH EVERY DAY FOR 100 DAYS 90 tablet 4 LORazepam (Ativan) 0.5 MG tablet Take 1 tablet (0.5 mg) by mouth every 6 (six) hours if needed for anxiety for up to 14 days 28 tablet 0 metoprolol succinate XL (Toprol-XL) 50 MG 24 hr tablet TAKE 1 TABLET BY MOUTH EVERY DAY DIRECTED. DO NOT CRUSH OR CHEW Multiple Vitamins-Minerals (Centrum Silver) chewable tablet every 12 (twelve) hours. nystatin (Mycostatin) 442872 UNIT/GM powder Apply to the affected area, once daily, 30 day supply 60 g 11 PARoxetine (Paxil) 20 MG tablet TAKE 1 TABLET BY MOUTH EVERY DAY IN THE MORNING 100 tablet 3 [DISCONTINUED] metoprolol succinate XL (Toprol-XL) 25 MG 24 hr tablet Take 1.5 tablets by mouth Daily Dosing per Cardiology No current facility-administered medications on file prior [...] COLONOSCOPY 2013 FOOT SURGERY multiple foot sx, [id number] HYSTERECTOMY 1998 IR ABLATION BONE 12/15/2018 LT RFA T12-L3 IR INJECTION NERVE BLOCK 04/09/2018 L2-L5 nerve blocks IR INJECTION NERVE BLOCK Left 07/21/2018 T12-L3 nerve blocks LUMBAR EPIDURAL INJECTION 04/03/2021 OTHER SURGICAL HISTORY [address], [place] PART[place] H[place] REPLACEMENT 08/2018 TOE SURGERY TONSILLECTOMY TOTAL HIP ARTHROPLASTY Left 09/07/2018 Dr Neves TYMPANOSTOMY TUBE PLACEMENT Right 04/01/24 Dr Raymundo Visit Vitals BP 136/78 Pulse 64 Ht 5' 2.5 Wt 204 lb SpO2 95% BMI 36.72 kg/m Smoking Status Former BSA 2.02 m Review of Systems Constitutional: Negative for chills, fatigue and fever. Respiratory: Negative for cough, shortness of breath and wheezing. Cardiovascular: Negative for chest pain, palpitations and leg swelling. Gastrointestinal: Negative for abdominal pain, constipation, diarrhea, nausea and vomiting. Musculoskeletal: Positive for arthralgias and gait problem. Skin: Negative for rash. Psychiatric/Behavioral: Stress Objective Physical Exam Constitutional: General: She is not in acute distress. Appearance: She is well-developed. She is obese. HENT: Head: Normocephalic and atraumatic. Eyes: General: No scleral icterus. Conjunctiva/sclera: Conjunctivae normal. Cardiovascular: Rate and Rhythm: Normal rate and regular rhythm. Heart sounds: Normal heart sounds. No murmur heard. Pulmonary: Effort: Pulmonary effort is normal. No respiratory distress. Breath sounds: Normal breath sounds. No wheezing, rhonchi or rales. Musculoskeletal: Right knee: Effusion and crepitus (severe) present. Decreased range of motion (Extension to 5 degrees). Skin: General: Skin is warm and dry. Neurological: General: No focal deficit present. Mental Status: She is alert and oriented to person, place, and time. Gait: Gait abnormal (Antalgic gait). Psychiatric: Mood and Affect: Mood normal. Affect is tearful (When discussing life stressors). Behavior: Behavior normal. Arthrocentesis Date/Time: 10/15/2024 9:12 AM Performed by: THUY Brown Authorized by: THUY Brown Consent: Consent obtained: Verbal Consent given by: Patient Risks, benefits, and alternatives were discussed: yes Risks discussed: Bleeding, infection and pain Alternatives discussed: No treatment and alternative treatment Location: Location: Knee Knee: R knee Anesthesia: Anesthesia method: Local infiltration (0.5 cc) Local anesthetic: Bupivacaine 0.5% w/o epi Procedure details: Needle gauge: 21 G. Ultrasound guidance: no Approach: Lateral Steroid injected: yes (80 mg Depo-Medrol) Specimen collected: no Post-procedure details: Dressing: Adhesive bandage Procedure completion: Tolerated well, no immediate complications Assessment/Plan Diagnoses and all orders for this visit: Primary osteoarthritis of right knee - Arthrocentesis Reviewed previous x-rays with patient and reviewed knee anatomy with the patient in detail. Discussed treatment options with the patient. OTC treatments are no longer sufficiently effective. Potential risks and benefits of a knee injection were reviewed with the patient, including but not limited to, reaction to the medication, infection, failure to improve and possible worsening of symptoms. Patient voiced understanding, and chose to proceed with a knee injection. Advised pt that if there is not significant relief from the injection, a referral to Orthopedics for further evaluation would be warranted. Patient voiced understanding. Depo-Medrol was injected into patient's knee. Pt tolerated this well and neurovascular status was intact following the injection. Post injection instructions were reviewed with patient. Reviewed s/s of infection. Patient is to contact the office with any concerns. Stress reaction Active listening provided for patient today. Osteoarthritis of spine with radiculopathy, lumbar region Follow up with specialist as planned to discuss possibility of spinal cord stimulator. Follow up in about 3 months (around 01/15/2025) for Medication Follow Up. documented in this encounter [facility] 09-28-2024 History of Present illness Narrative Images from [...] Do you have a medical power of immigration attorney?: Yes Current Outpatient Medications on File [...] tablet every 12 (twelve) hours. nystatin (Mycostatin) 340619 UNIT/GM powder Apply to the affected area, [...] COLONOSCOPY 2013 FOOT SURGERY multiple foot sx, [id number] HYSTERECTOMY 1998 IR ABLATION BONE 12/15/2018 LT RFA T12-L3 IR INJECTION NERVE BLOCK 04/09/2018 L2-L5 nerve blocks IR INJECTION NERVE BLOCK Left 07/21/2018 T12-L3 nerve blocks LUMBAR EPIDURAL INJECTION 04/03/2021 OTHER SURGICAL HISTORY [address], [place] REPLAC[place] 08/2018 TOE SURGERY TONSILLECTOMY TOTAL HIP ARTHROPLASTY Left 09/07/2018 Dr Neves TYMPANOSTOMY TUBE PLACEMENT Right 04/01/24 Dr Raymundo Visit Vitals BP 128/64 Pulse 64 Resp 16 Ht 5' 2.5 Wt 204 lb 9.6 oz SpO2 93% BMI 36.83 kg/m Smoking Status Former BSA 2.02 m Review of Systems Constitutional: Positive for unexpected [...] All needed testing was ordered. Will continue with yearly Medicare Wellness exams. - Lipid panel - TSH W/REFLEX TO FT4 2. ACP (advance care planning) Patient willing to discuss ACP. Pt has Living Will and DPOA in place. 3. Pulmonary hypertension, unspecified (CMS/HCC) The patient is seeing a medical physics teacher for this condition, treatment is deferred to [...] acromioclavicular joint The patient is seeing a medical physics teacher for this condition, treatment is deferred to that specialist. Correspondence from that specialist and any available testing were reviewed during today's visit. 7. Bilateral lower extremity edema This is a chronic medical condition that is stable since last assessment. Elevate legs when needed. No diuretic at this time. 8. Bilateral tinnitus The patient is seeing a medical physics teacher for this condition, treatment is deferred to that specialist. Correspondence from that specialist and any available testing were reviewed during today's visit. 9. Chronic myringitis, unspecified laterality The patient is seeing a medical physics teacher for this condition, treatment is deferred to that specialist. Correspondence from that specialist and any available testing were reviewed during today's visit. 10. Decreased estrogen level This is a chronic medical condition that is stable since last assessment. Will continue to monitor with routine preventative screenings. 11. Disorder of sacrum The patient is seeing a medical physics teacher for this condition, treatment is deferred to that specialist. Correspondence from that specialist and any available testing were reviewed during today's visit. 12. Dry eye syndrome of bilateral lacrimal glands The patient is seeing a medical physics teacher for this condition, treatment is deferred to that specialist. Correspondence from that specialist and any available testing were reviewed during today's visit. 13. ETD (Eustachian tube dysfunction), right The patient is seeing a medical physics teacher for this condition, treatment is deferred to that specialist. Correspondence from that specialist and any available testing were reviewed during today's visit. 14. Former smoker The patient was counseled on the importance of maintaining cigarette smoking abstinence. The patient continues to refrain from smoking and is committed to avoiding tobacco use. 15. Herniated lumbar intervertebral disc The patient is seeing a medical physics teacher for this condition, treatment is deferred to [...] Intermittent palpitations The patient is seeing a medical physics teacher for this condition, treatment is deferred to that specialist. Correspondence from that specialist and any available testing were reviewed during today's visit. 19. Obstructive hypertrophic cardiomyopathy (CMS/HCC) The patient is seeing a medical physics teacher for this condition, treatment is deferred to that specialist. Correspondence from that specialist and any available testing were reviewed during today's visit. 20. Lumbosacral spondylosis without myelopathy The patient is seeing a medical physics teacher for this condition, treatment is deferred to [...] controlled. Continue with current medications and I will continue to monitor. Goal BP remains less than 130/80. - Lipid panel 25. Osteoarthritis of spine with radiculopathy, lumbar region The patient is seeing a medical physics teacher for this condition, treatment is deferred to that specialist. Correspondence from that specialist and any available testing were reviewed during today's visit. 26. Primary osteoarthritis of both knees The patient is seeing a medical physics teacher for this condition, treatment is deferred to that specialist. Correspondence from that specialist and any available testing were reviewed during today's visit. 27. Primary osteoarthritis of left hip The patient is seeing a medical physics teacher for this condition, treatment is deferred to that specialist. Correspondence from that specialist and any available testing were reviewed during today's visit. 28. Punctate keratitis of both eyes The patient is seeing a medical physics teacher for this condition, treatment is deferred to that specialist. Correspondence from that specialist and any available testing were reviewed during today's visit. 29. Sensorineural hearing loss, bilateral The patient is seeing a medical physics teacher for this condition, treatment is deferred to that specialist. Correspondence from that specialist and any available testing were reviewed during today's visit. 30. Multiple perforations of right tympanic membrane The patient is seeing a medical physics teacher for this condition, treatment is deferred to that specialist. Correspondence from that specialist and any available testing were reviewed during today's visit. 31. Left ventricular hypertrophy The patient is seeing a medical physics teacher for this condition, treatment is deferred to that specialist. Correspondence from that specialist and any available testing were reviewed during today's visit. 32. History of TIA (transient ischemic attack) The patient is seeing a medical physics teacher for this condition, treatment is deferred to that specialist. Correspondence from that specialist and any available testing were reviewed during today's visit. History of TIA was one remote isolated incident. 33. History of left hip replacement The patient is seeing a medical physics teacher for this condition, treatment is deferred to that specialist. Correspondence from that specialist and any available testing were reviewed during today's visit. 34. Family history of heart disease The patient is seeing a medical physics teacher for this condition, treatment is deferred to that specialist. Correspondence from that specialist and any available testing were reviewed during today's visit. 35. SCHOFIELD (dyspnea on exertion) The patient is seeing a medical physics teacher for this condition, treatment is deferred to that specialist. Correspondence from that specialist and any available testing were reviewed during today's visit. Follow up for Knee Pain and Weight Loss. Joleen GRIFFIN PA-C documented in this encounter [facility] 08-06-2024 Telephone encounter Note OARRS reviewed, Rx sent into patient's pharmacy. [facility] 08-06-2024 Miscellaneous Notes OARRS reviewed, Rx sent into patient's pharmacy. Patient called asking for a new RX for Lorazepam. She has an old RX but it's 2 years old documented in this encounter [facility] 08-06-2024 Telephone encounter Note Patient called asking for a new RX for Lorazepam. She has an old RX but it's 2 years old [facility] 07-29-2024 Note Patient here for a f ollow up appointment. Patient was in the ER at the end of June. Patient states she went into the ER for pain in her left breast while she was in the ER the pain was consistent. Since her ER visit she has had the pain off and on. Patient states the pain feels like a heaviness. Patient states she is more short of breath since May. Patient states she has some flutter. Review of Systems Cardiovascular: Positive for chest pain, dyspnea on exertion and palpitations. [facility] 07-29-2024 Note Cardiovascular Medic ine [facility] SUBJECTIVE Chief Complaint Patient presents with Chest Pain Teodora Daily is a 74 y.o. female here for follow-up. HPI PMHx: HTN, palpitations, dyspnea 07/29/24 Patient here for a follow up appointment. Patient was in the ER at the end of June. Patient states she went into the ER for pain in her left breast while she was in the ER the pain was consistent. Since her ER visit she has had the pain off and on. Patient states the pain feels like a heaviness. Patient states she is more short of breath since May. Patient states she has some flutter. 1 week ago she felt a deep sharp/shooting pain in her breast. [place] like it radiates from her breast to her chest. She had accompanied fluttering in her chest. Lasted all day long which brought her to the ER. ER evaluation was unremarkable including troponin, EKG, CXR. She has had chest heaviness since then, occurs periodically during the day. Notices more so when she is sitting/at rest. She has continued to have the fluttering feeling in her chest. She has had increased SCHOFIELD. She has had increase in weight in the past month. She feels like she gained 20# in about a month or so. Denies orthopnea, PND, LE edema, dizziness, syncope. Patient Active Problem List Diagnosis Primary hypertension [...] loss, bilateral Overactive bladder Osteopenia Sjogren's syndrome Essential hypertension Bilateral lower extremity edema Decreased [...] of both eyes TIA (transient ischemic attack) SCHOFIELD (dyspnea on exertion) Family history of heart disease Past Medical History: Diagnosis Date Hypertension Left ventricular hypertrophy Palpitations Stroke (CMS/HCC) Family History Problem Relation Name Age of Onset Other (pacemaker) Mother Hypertrophic cardiomyopathy Sister Stroke Sister Other (pacemaker) Sister Hypertrophic cardiomyopathy Brother Social History Tobacco Use Smoking status: Former Types: Cigarettes Smokeless tobacco: Never Allergies Allergen Reactions Hydrocodone Hives Can take as needed, gets itching if takes as prescribed on hourly basis Sulfa (Sulfonamide Antibiotics) ROS Cardiovascular: Positive for chest pain, dyspnea on exertion and palpitations. OBJECTIVE Visit Vitals BP 113/66 (BP Location: Right arm, Patient Position: Sitting) Pulse 72 Ht 1.6 m (5' 3 ) Wt 91.2 kg (201 lb) SpO2 96% BMI 35.61 kg/m??? Smoking Status Former BSA 2.01 m??? Medications: Current Outpatient Medications: aspirin 81 mg chewable tablet, Chew 1 tablet twice a day by oral route., Disp: , Rfl: baclofen (Lioresal) 10 mg tablet, TAKE 1/2 TO 1 TABLET BY MOUTH TWICE A DAY NEEDED, Disp: , Rfl: cholecalciferol, vitamin D3, 50 mcg (2,000 unit) capsule, 1 capsule., Disp: , Rfl: irbesartan (Avapro) 150 mg tablet, Take 75 mg by mouth in the morning., Disp: , Rfl: LORazepam (Ativan) 0.5 mg tablet, Take 0.5 mg by mouth every 6 (six) hours if needed., Disp: , Rfl: PARoxetine (Paxil) 20 mg tablet, 20 mg in the morning., Disp: , Rfl: metoprolol succinate XL (Toprol-XL) 25 mg 24 hr tablet, Take 1.5 tablets (37.5 mg) by mouth in the morning. Do not crush or chew., Disp: , Rfl: tiZANidine (Zanaflex) 4 mg tablet, TAKE 1 TABLET BY MOUTH EVERYDAY AT BEDTIME NEEDED, Disp: , Rfl: Physical Exam Vitals reviewed. Constitutional: Appearance: Normal appearance. She is obese. HENT: Head: Normocephalic and atraumatic. Right Ear: External ear normal. Left Ear: External ear normal. Eyes: Extraocular Movements: Extraocular movements intact. Conjunctiva/sclera: Conjunctivae normal. Pupils: Pupils are equal, round, and reactive to light. Neck: Vascular: No carotid bruit. Cardiovascular: Rate and Rhythm: Normal rate and regular rhythm. Pulses: Normal pulses. Heart sounds: Normal heart sounds. Pulmonary: Effort: Pulmonary effort is normal. Breath sounds: Normal breath sounds. Abdominal: General: Bowel sounds are normal. Palpations: Abdomen is soft. Musculo (more content not included)... [facility] 07-27-2024 History of Present illness Narrative HPI Med Refill Additional comments: Lorazepam - has old script from 2022 but has found it does help her with having to take care of her who is sick Last edited by Katheryn Smith LPN on 07/27/2024 11:10 AM. Subjective Patient ID: Teodora Daily is a 74 y.o. female who presents for [facility] ER follow up. Teodora is present today for [facility] ER follow up. Dx. Chest pain. No new medications. She would like the labs, EKG, and chest xray explained to her. She does still admit to SOB even with sitting, worse with exertion, chest pain comes and goes. She does have an appt with the livestock breeder on . Drinks 24-48 ounces of water a day. Drinks two regular and one decaf cup of coffee a day. Current Outpatient Medications on File Prior to Visit Medication Sig Dispense Refill cholecalciferol (Vitamin D-3) 50 MCG (2000 UT) capsule 1 capsule 1 (one) time each day at the same time. Ascorbic Acid (Vitamin C) 500 MG capsule [...] 4 LORazepam (Ativan) 0.5 MG tablet Take 0.5 mg by mouth every 6 (six) hours if needed for anxiety metoprolol succinate XL (Toprol-XL) 25 MG 24 hr tablet Take 1 tablet by mouth in the morning. Multiple Vitamins-Minerals (Centrum Silver) chewable tablet every 12 (twelve) hours. nystatin (Mycostatin) 466426 UNIT/GM powder Apply to the affected area, once daily, 30 day supply 60 g 11 PARoxetine (Paxil) 20 MG tablet TAKE 1 TABLET BY MOUTH EVERY DAY IN THE MORNING 100 tablet 3 [DISCONTINUED] cycloSPORINE (Restasis) 0.05 % ophthalmic emulsion instill 1 drop into both eyes twice a day as directed No current facility-administered medications on file prior [...] date: 11/19/1968 Quit date: 04/21/2007 Years since quittin.2 Smokeless tobacco: Never Vaping Use Vaping status: [...] Grandfather Heart disease Sibling Heart failure Sister Steffi Putnamanne Heart failure Brother Suleman Hypertension Sister Mey, [...] COLONOSCOPY 2013 FOOT SURGERY multiple foot sx, [id number] HYSTERECTOMY 1998 IR ABLATION BONE 12/15/2018 LT RFA T12-L3 IR INJECTION NERVE BLOCK 04/09/2018 L2-L5 nerve blocks IR INJECTION NERVE BLOCK Left 07/21/2018 T12-L3 nerve blocks LUMBAR EPIDURAL INJECTION 04/03/2021 OTHER SURGICAL HISTORY 1985 T Tube, [place] PARTIAL HIP REPLACEMENT 08/2018 TOE SURGERY TONSILLECTOMY TOTAL HIP ARTHROPLASTY Left 09/07/2018 Dr Neves TYMPANOSTOMY TUBE PLACEMENT Right 04/01/24 Dr Raymundo Visit Vitals BP 122/80 Pulse 65 Resp 16 Ht 5' 2.5 Wt 202 lb 6.4 oz SpO2 97% BMI 36.43 kg/m Smoking Status Former BSA 2.01 m Review of Systems Constitutional: Negative for chills, fatigue and fever. Respiratory: Positive for shortness of breath. Negative for cough and wheezing. Cardiovascular: Positive for chest pain. Negative for palpitations and leg swelling. Gastrointestinal: Negative for abdominal pain, constipation, diarrhea, nausea and vomiting. Skin: Negative for rash. Objective Physical Exam Constitutional: General: She is not in acute distress. Appearance: She is well-developed. She is obese. HENT: Head: Normocephalic and atraumatic. Right Ear: Decreased hearing noted. Left Ear: Decreased hearing noted. Eyes: General: No scleral icterus. Conjunctiva/sclera: Conjunctivae normal. Cardiovascular: Rate and Rhythm: Normal rate and regular rhythm. Heart sounds: Normal heart sounds. No murmur heard. Pulmonary: Effort: Pulmonary effort is normal. No respiratory distress. Breath sounds: Normal breath sounds. No wheezing, rhonchi or rales. Skin: General: Skin is warm and dry. Neurological: General: No focal deficit present. Mental Status: She is alert and oriented to person, place, and time. Psychiatric: Mood and Affect: Mood normal. Behavior: Behavior normal. Assessment/Plan Diagnoses and all orders for this visit: Atypical chest pain Stable at this time regarding chest pain. Will be following with Cardiology on 07/29/2024. Encouraged her to discuss her symptoms with them. Advised there are medications available that they may be able to recommend to help with her chest pain symptoms. Has had Stress Test, ECHO in past. Those were reviewed and discussed with pt today in detail. Primary hypertension (CMS/HCC) Patient's blood pressure is currently well controlled. Continue with current medications and I will continue to monitor. Encouraged pt to increase her water intake. Left ventricular hypertrophy Discussed ECG findings from the ER. Obstructive hypertrophic cardiomyopathy (CMS/HCC) The patient is seeing a medical physics teacher for this condition, treatment is deferred to that specialist. Correspondence from that specialist and any available testing were reviewed during today's visit. SCHOFIELD (dyspnea on exertion) Stable at this time. Leukocytosis, unspecified type Advised pt that his WBC count was elevated in ER. No obvious signs of infection on exam today. She denies any significant ROS complaints. Family history of heart disease Patient has h/o multiple 1st degree relatives who have due to heart disease in their 60's. This understandably worries the patient. Extended conversation about her heart health today. Pt voiced appreciation for answers to her questions and will follow up with Cardiology. The patient was seen today in follow up of recent hospital ER visit. All available hospital records/labs/diagnostics were reviewed and discussed with the patient. ER discharge meds were reviewed. Any changes to plan are as noted. Follow up for Medicare Wellness Visit. documented in this encounter [facility] 06-23-2024 History of Present illness Narrative Associated Order(s): Arthrocentesis Post-Procedure Diagnose(s): Primary osteoarthritis of right knee; Chronic pain of right knee Images from the original note were not included. Subjective Patient ID: Teodora Daily is a 74 y.o. female who presents for knee pain. Teodora is present today for evaluation of knee pain. Admits right knee pain for years and she has had injections in her knee in the past and her last one was with Caren soria in January. The pain is mostly on the outside of the knee and does get swelling there also. She is holding off as long as she can for a knee replacement. Current Outpatient Medications on File Prior to Visit Medication Sig Dispense Refill Ascorbic Acid (Vitamin C) 500 MG capsule Take by mouth aspirin 81 MG chewable tablet Chew 1 tablet twice a day by oral route. baclofen (Lioresal) 10 MG tablet TAKE 1/2 TO 1 TABLET BY MOUTH TWICE A DAY NEEDED cholecalciferol (Vitamin D-3) 50 MCG (1999 UT) capsule 1 capsule 1 (one) time each day at the same time. cyanocobalamin (Vitamin B-12) 100 MCG tablet Vitamin B12 cycloSPORINE (Restasis) 0.05 % ophthalmic emulsion instill [...] tablet every 12 (twelve) hours. nystatin (Mycostatin) 413457 UNIT/GM powder Apply to the affected area, once daily, 30 day supply 60 g 11 PARoxetine (Paxil) 20 MG tablet TAKE 1 TABLET BY MOUTH EVERY DAY IN THE MORNING 100 tablet 3 [DISCONTINUED] cyclobenzaprine (Flexeril) 10 MG tablet Take 10 mg by mouth at bedtime [DISCONTINUED] nystatin (Mycostatin) 801321 UNIT/GM powder Apply to the affected area under the breasts, once daily, 30 day supply 60 g 11 [DISCONTINUED] ofloxacin (Floxin) 0.3 % otic solution 4 drops in affected ear 2 times daily for 7 days 5 mL 0 No current facility-administered medications on file prior [...] date: 11/19/1968 Quit date: 04/21/2007 Years since quittin.1 Smokeless tobacco: Never Vaping Use Vaping status: [...] COLONOSCOPY 2013 FOOT SURGERY multiple foot sx, [id number] HYSTERECTOMY 1998 IR ABLATION BONE 12/15/2018 LT RFA T12-L3 IR INJECTION NERVE BLOCK 04/09/2018 L2-L5 nerve blocks IR INJECTION NERVE BLOCK Left 07/21/2018 T12-L3 nerve blocks LUMBAR EPIDURAL INJECTION 04/03/2021 OTHER SURGICAL HISTORY 1985 T Tube, [place] PARTIAL HIP REPLACEMENT 08/2018 TOE SURGERY TONSILLECTOMY TOTAL HIP ARTHROPLASTY Left 09/07/2018 Dr Neves TYMPANOSTOMY TUBE PLACEMENT Right 04/01/24 Dr Raymundo Visit Vitals BP 136/74 Pulse 71 Resp 16 Ht 5' 2.5 Wt 201 lb 9.6 oz SpO2 95% BMI 36.29 kg/m Smoking Status Former BSA 2.01 m Review of Systems Constitutional: Negative for chills, fatigue and fever. Respiratory: Negative for cough, shortness of breath and wheezing. Cardiovascular: Negative for chest pain, palpitations and leg swelling. Gastrointestinal: Negative for abdominal pain, constipation, diarrhea, nausea and vomiting. Musculoskeletal: Positive for arthralgias, gait problem and joint swelling. Skin: Negative for rash. Objective Physical Exam Constitutional: General: She is not in acute distress. Appearance: She is well-developed. She is obese. HENT: Head: Normocephalic and atraumatic. Eyes: General: No scleral icterus. Conjunctiva/sclera: Conjunctivae normal. Cardiovascular: Rate and Rhythm: Normal rate and regular rhythm. Heart sounds: Normal heart sounds. No murmur heard. Pulmonary: Effort: Pulmonary effort is normal. No respiratory distress. Breath sounds: Normal breath sounds. No wheezing, rhonchi or rales. Musculoskeletal: Right knee: Effusion (Mild) and crepitus (Severe) present. No ecchymosis. Decreased range of motion (Limited at extremes). Skin: General: Skin is warm and dry. Neurological: General: No focal deficit present. Mental Status: She is alert and oriented to person, place, and time. Gait: Gait abnormal (Antalgic). Psychiatric: Mood and Affect: Mood normal. Behavior: Behavior normal. Arthrocentesis Date/Time: 06/23/2024 11:25 AM Performed by: [...] Procedure completion: Tolerated well, no immediate complications Assessment/Plan Diagnoses and all orders for this visit: Primary osteoarthritis of right knee - methylPREDNISolone acetate (DEPO-Medrol) injection 80 mg - Arthrocentesis Discussed treatment options with the patient. OTC treatments are no longer sufficiently effective. Patient chose to proceed with a knee injection. Has had good results in the past, up to 5 months of relief of symptoms. Potential risks and benefits of the procedure were reviewed with the patient. Advised pt that if there is not significant relief from the injection, a referral back to Orthopedics for further evaluation would be warranted. Pt voiced understanding. Depo-Medrol was injected into patient's knee. Pt tolerated this well. Reviewed s/s of infection. Patient is to contact the office with any concerns. Chronic pain of right knee - methylPREDNISolone acetate (DEPO-Medrol) injection 80 mg - Arthrocentesis See above. Morbid (severe) obesity due to excess calories (CMS/HCC) Encouraged healthy diet, stay active. Follow up in about 4 weeks (around 07/21/2024) for Medicare Wellness Visit. documented in this encounter [facility] 05-31-2024 Note [place] Cardiology - [facility] Subjective Teodora Daily is a 74 y.o. year old female patient being seen for 9 mo follow up hypertension, palpitations, and dyspnea. She had echo in October, and stress test in Dec 2023. Denies chest pain, palpitations, and lightheadedness/syncope. C/o worsening SOB w/ exertion. She's gained over 20# since last visit in August 2023 and she attributes her SCHOFIELD to this. Thinks she may have a small amount of LE edema because she's had to change the type of socks she wears. Patient Active Problem List Diagnosis Primary hypertension [...] as a new patient, referred from Dr. Goomdan's office due to abnormal echocardiogram. She has [...] which goes for a autosomal recessive condition. At last visit of 09/17/2023 I checked an echocardiogram and an event monitor due to her palpitations and shortness of breath. I also checked a stress test. Today she reports that she has been doing reasonably well except that she has gained weight and her shortness of breath has gotten a little bit worse. No palpitations. No chest pain. She has mild occasional leg edema. Review of Systems Constitutional: Positive for weight gain (21# since August 2023). HENT: Positive for hearing loss. Cardiovascular: Positive for dyspnea on exertion (worsening) and leg swelling. Musculoskeletal: Positive for arthritis, back pain and joint pain. All other systems reviewed and are negative. Objective Visit Vitals BP 124/68 (BP Location: Left arm, Patient Position: Sitting) Pulse 69 Ht 1.6 m (5' 3 ) Wt 92.1 kg (203 lb) SpO2 95% BMI 35.96 kg/m??? Smoking Status Former BSA 2.02 m??? Physical Exam Constitutional: Appearance: She is [...] 2+ on the left side. Heart sounds: Murmur heard. Systolic (RUSB) murmur is present with a grade of 1/6. No friction rub. No gallop. Pulmonary: Effort: Pulmonary effort is normal. No respiratory distress. (more content not included)... [facility] 05-24-2024 Telephone encounter Note Cld pt and let her know that rx sent in [facility] 05-24-2024 Miscellaneous Notes Cld pt and let her know that rx sent in RX sent in. Do NOT put q-tip in ear Pt woke up yesterday and had 5 drops of blood on pillow and put Q-tip in there and had a little flaky blood on it. Today no blood but feels the fluid moving around in the ear that you put tube in on 05/04. Does pt need to be seen or what should she do. If you call in something in she uses [facility] documented in this encounter [facility] 05-24-2024 Telephone encounter Note RX sent in. Do NOT put q-tip in ear [facility] 05-24-2024 Telephone encounter Note Pt woke up yesterday and had 5 drops of blood on pillow and put Q-tip in there and had a little flaky blood on it. Today no blood but feels the fluid moving around in the ear that you put tube in on 05/04. Does pt need to be seen or what should she do. If you call in something in she uses [facility] 05-04-2024 History of Present illness Narrative Subjective Patient ID: Teodora Daily is a 74 y.o. female who presents for Ear Problem (S/p Rt tube. 04/01/24 [facility]) Family History Problem Relation Name Age of [...] Sensorineural hearing loss, bilateral 02/24/2018 Sjogren's syndrome ([facility]/HCC) 04/27/2021 Multiple perforations of right tympanic membrane 05/19/2023 Left ventricular hypertrophy 09/24/2021 History of TIA (transient ischemic attack) 07/14/2023 History of left hip replacement 07/14/2023 Resolved Ambulatory Problems Diagnosis Date Noted Gastroesophageal reflux disease 07/29/2018 History of artificial joint 10/20/2019 Obesity 08/04/2018 Reactive airway disease ([facility]/HCC) 10/26/2020 TIA (transient ischemic attack) 11/10/2022 Perforation [...] BUNIONECTOMY CATARACT EXTRACTION 01/2019 COLECTOMY 2008 COLONOSCOPY 2012 FOOT SURGERY multiple foot sx, [id number] HYSTERECTOMY 1998 IR ABLATION BONE 12/15/2018 LT RFA T12-L3 IR INJECTION NERVE BLOCK 04/09/2018 L2-L5 nerve blocks IR INJECTION NERVE BLOCK Left 07/21/2018 T12-L3 nerve blocks LUMBAR EPIDURAL INJECTION 04/03/2021 OTHER SURGICAL HISTORY 1985 T Tube, [place] PARTIAL HIP REPLACEMENT 08/2018 TOE SURGERY TONSILLECTOMY [...] tablet every 12 (twelve) hours. nystatin (Mycostatin) [id number] UNIT/GM powder Apply to the affected area under the breasts, once daily, 30 day supply 60 g 11 nystatin (Mycostatin) [id number] UNIT/GM powder Apply to the affected area, [...] Tube looks good documented in this encounter [facility] 04-12-2024 History of Present illness Narrative Skin [...] Seborrheic keratosis, inflamed (8) Left Forehead, Left Denominational, Mid Forehead (2), Right Frontal Scalp, Right Denominational, Right Temporal Scalp (2) [place] and brown stuck on verrucous scaly papule [...] limited to risks of scarring, darker or security management specialist pigmentary changes, recurrence, incomplete removal and infection. [...] Cryotherapy, skin lesion - Left Forehead, Left Denominational, Mid Forehead (2), Right Frontal Scalp, Right Denominational, Right Temporal Scalp (2) 4. Erythema intertrigo Left Inframammary Fold, Right Inframammary Fold [place] moist plaques. Stable but not at treatment goal. Discussed that intertrigo is a chronic condition that can be controlled but not cured. Recommend keeping areas as dry as possible to avoid flares. Start Nystatin powder every day. Notify clinic if worsening despite treatment. Related Medications nystatin (Mycostatin) [id number] UNIT/GM powder Apply to the affected area under the breasts, once daily, 30 day supply Next Visit: 1 year documented in this encounter [facility] 02-11-2024 History of Present illness Narrative Subjective [...] failure Sister Mey Putnam Heart failure Brother Sulemna Hypertension Sister Mey, Indy Migraines Sister Indy [...] Osteopenia 04/04/2018 Overactive bladder 04/04/2018 Primary hypertension ([facility]) 05/11/2018 Osteoarthritis of spine with radiculopathy, lumbar region 11/10/2022 Primary osteoarthritis of both knees 11/10/2022 Primary osteoarthritis of left hip 11/10/2022 Punctate keratitis of both eyes 11/10/2022 Sensorineural hearing loss, bilateral 02/24/2018 Sjogren's syndrome ([facility]) 04/27/2021 Multiple perforations of right tympanic membrane 05/19/2023 Left ventricular hypertrophy 09/24/2021 History of TIA (transient ischemic attack) 07/14/2023 History of left hip replacement 07/14/2023 Resolved Ambulatory Problems Diagnosis Date Noted Gastroesophageal reflux disease 07/29/2018 History of artificial joint 10/20/2019 Obesity 08/04/2018 Reactive airway disease ([facility]) 10/26/2020 TIA (transient ischemic attack) 11/10/2022 Perforation [...] COLONOSCOPY 2013 FOOT SURGERY multiple foot sx, [id number] HYSTERECTOMY 1998 IR ABLATION BONE 12/15/2018 LT RFA T12-L3 IR INJECTION NERVE BLOCK 04/09/2018 L2-L5 nerve blocks IR INJECTION NERVE BLOCK Left 07/21/2018 T12-L3 nerve blocks LUMBAR EPIDURAL INJECTION 04/03/2021 OTHER SURGICAL HISTORY 1985 T Tube, [place] H[place] REPLAC[place] 08/2018 TOE SURGERY TONSILLECTOMY [...] tod hearing aids documented in this encounter [facility] 02-04-2024 History of Present illness Narrative [...] Type Ad tympanogram documented in this encounter [facility] 01-28-2024 History of Present illness Narrative [...] weeks. 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 get security management specialist in [place] then goes back to [...] COLONOSCOPY 2013 FOOT SURGERY multiple foot sx, [id number] HYSTERECTOMY 1998 IR ABLATION BONE 12/15/2018 LT RFA T12-L3 IR INJECTION NERVE BLOCK 04/09/2018 L2-L5 nerve blocks IR INJECTION NERVE BLOCK Left 07/21/2018 T12-L3 nerve blocks LUMBAR EPIDURAL INJECTION 04/03/2021 OTHER SURGICAL HISTORY 1985 T Tube, [place] REPLAC[place] 08/2018 TOE SURGERY TONSILLECTOMY [...] immunization - Influenza, high-dose seasonal, quadrivalent, PF (IYY199) (Fluzone High Dose [place] 0.7mL dose) [...] Medicare Wellness Visit. documented in this encounter [facility] 01-26-2024 History of Present illness Narrative Associated Order(s): L Inj/Asp: R knee Post-Procedure Diagnose(s): Arthritis of right knee Subjective Patient ID: Teodora Daily is a 74 y.o. female. RT Knee *Wants inj Last saw Caren 09/17/23 for the RT knee and was referred to [facility] for eval for visco supplementation, she [...] for her back, sees pain management at [facility]. Admits ice prn. Also uses heat and voltaren occas with some relief, but gets the most relief with ice. Good rom, pain with ROM. Denies waking at night. TX: XR [facility] 08/20/23, heat, aleve, IBU, depo injection 04/23/22, depo injection 10/29/22, MRI [facility] 12/17/22, Depo injx 01/07/23 and 03/18/23, [...] tolerated, f/u prn documented in this encounter [facility] 12-23-2023 History of Present illness Narrative Images from the original note were not included. Teodora Chadwick D.O. Obstetrics and Gynecology Patient: Teodora Daily : 1950 (73 y.o.) Yearly Wellness Exam [...] smear 12/05/21 wnl, Mammogram 12/19/22 wnl @ [place], [facility] 2021 osteopenia Review of Systems - General: [...] Review Audit Reviewed by Joana Ruvalcaba MA (Drawing Kiln Supervisor) on 12/23/23 at 1143 Medication Order Taking? Sig Documenting Provider Last Dose Status Ascorbic Acid (vitamin C) 1000 MG tablet [id number] No 1 (one) time each day at the same time. Historical ProviderMD Taking Active aspirin 81 MG chewable tablet [id number] No Chew 1 tablet twice a day by oral route. Historical Provider, Taking Active calcium carbonate 1500 (600 Ca) MG tablet [id number] No every 12 (twelve) hours. Historical ProviderMD Taking Active cholecalciferol (Vitamin D-3) 50 MCG (1999 UT) capsule [id number] No 1 capsule 1 (one) time each day at the same time. Historical Provider, Taking Active cyanocobalamin (Vitamin B-12) 100 MCG tablet [id number] No Vitamin B12 Historical ProviderMD Taking Active cyclobenzaprine (Flexeril) 10 MG tablet [id number] Take 10 mg by mouth at bedtime Lindsey Raymundo MD Active cycloSPORINE (Restasis) 0.05 % ophthalmic emulsion [id number] No instill 1 drop into both eyes twice a day as directed Historical ProviderMD Taking Active fexofenadine-pseudoephedrine ER (Carolni-D) 60-120 MG 12 hr tablet [id number] No Take 1 tablet by mouth 2 (two) times a day as needed for allergies. Do not crush, chew, or split. Historical Provider, Taking Active irbesartan (Avapro) 150 MG tablet [id number] No TAKE 1 TABLET BY MOUTH EVERY DAY FOR 100 DAYS Sven Peng MD Taking Active metoprolol succinate XL (Toprol-XL) 25 MG 24 hr tablet [id number] No Take 1 tablet by mouth in the morning. Historical Provider, Taking Active Multiple Vitamins-Minerals (Centrum Silver) chewable tablet [id number] No every 12 (twelve) hours. Historical Provider, Taking Active PARoxetine (Paxil) 20 MG tablet [id number] No Take 1 tablet (20 mg) by mouth in the morning. Sven Peng MD Taking Active zinc gluconate 50 MG tablet [id number] No 1 (one) time each day at [...] COLONOSCOPY 2013 FOOT SURGERY multiple foot sx, 4991-2622 HYSTERECTOMY 1998 IR ABLATION BONE 12/15/2018 LT RFA T12-L3 IR INJECTION NERVE BLOCK 04/09/2018 L2-L5 nerve blocks IR INJECTION NERVE BLOCK Left 07/21/2018 T12-L3 nerve blocks LUMBAR EPIDURAL INJECTION 04/03/2021 OTHER SURGICAL HISTORY 1985 T Tube, [place] H[place] REPLAC[place] 08/2018 TOE SURGERY TONSILLECTOMY TOTAL HIP ARTHROPLASTY Left 09/07/2018 Dr Neves TYMPANOSTOMY TUBE PLACEMENT Family History Problem Relation Name Age of Onset Alzheimer's disease Mother Mariah Hypertension Mother Mariah Pernicious anemia Father Alcohol abuse Father Suicidality Paternal Grandfather Heart disease Sibling Heart failure Sister Mey Put[place] Heart failure Brother [place] Hypertension Sister Indy Mathias Migraines Sister Indy Stroke Sister Mey Physical [...] Weight gain R63.5 documented in this encounter [facility] 02-08-2022 Evaluation note Encounter Date Diagnosis [...] no improvement in 2 to 3 days [facility] Other 10-13-2022 NoteCONSULTATION CONSULTATION DATE: 01/31/2022 HISTORY OF PRESENT ILLNESS: This is a very pleasant and active, 72-year-old female who is returning to the clinic for a seven month follow up. She historically has chronic lower back pain and most recent procedure was in 03/2021 which was a lumbar epidural steroid injection. She did have radiofrequency ablations back in 2017 and 2018. She reports no pain today and feels [...] a p.r.n. basis at the patient's discretion.[facility] Diagnosis Right knee pain, unspecified chronicity- [...] right- Primary [facility] Diagnosis ETD (Eustachian tube dysfunction), right- Primary Chronic myringitis of right ear [facility] Diagnosis Primary osteoarthritis of right knee- Primary Chronic pain of right knee Morbid (severe) obesity due to excess calories (CMS/HCC) [facility] Diagnosis Atypical chest pain- Primary Other chest pain Primary hypertension (CMS/HCC) Unspecified essential hypertension Left ventricular hypertrophy Cardiomegaly Obstructive hypertrophic cardiomyopathy (CMS/HCC) [place] (dyspnea on exertion) Other dyspnea and respiratory abnormality Leukocytosis, unspecified type Family history of heart disease [facility] Diagnosis Anxiety- Primary Anxiety state, unspecified [facility] Diagnosis Medicare annual wellness visit, subsequent- Primary ACP (advance care planning) Other specified counseling Pulmonary hypertension, unspecified (CMS/HCC) Weight gain Other symptoms concerning nutrition, metabolism, [...] tolerance test Intermittent palpitations Obstructive hypertrophic cardiomyopathy (CMS/HCC) Lumbosacral spondylosis without myelopathy Obesity (BMI 30.0-34.9) Osteopenia of multiple sites Overactive bladder Hypertonicity of bladder Primary hypertension (CMS/HCC) Unspecified essential hypertension Osteoarthritis of spine with [...] region and thigh [facility] Diagnosis Primary osteoarthritis of right knee- Primary Stress reaction Unspecified acute reaction to stress Osteoarthritis of spine with radiculopathy, lumbar region [facility] Diagnosis History of left hip replacement- Primary Left hip pain Pain in joint, pelvic region and thigh Acute bilateral low back pain without sciatica [facility] Diagnosis Vaginal atrophy Postmenopausal atrophic vaginitis Encounter for screening mammogram for breast cancer [facility] Diagnosis Primary osteoarthritis of both knees- Primary Bilateral lower extremity edema Current mild episode of major depressive disorder without prior episode [facility] Narrative - Reported* Type Description Date Medical History osteoporosis Medical History herniated disc Medical History hypertrophic cardiomyopathy Surgical History Hip Replacement 2017 [facility] Other Summary Purpose Family History No Family [...] Procedures L Inj/Asp: R knee Apling, Yaa Lopez NP [address] [place] [address] Referral ID Status Reason Start Date Expiration Date V isits Requested Visits Authorized [id number] Authorized 01/26/2024 07/24/2024 1 1 Additional Source Comments INFORMATION SOURCE (unrecogn ized section and content) DATE CREATED AUTHOR 05/13/2021 [facility] Me dical Specialist DATE CREATED AUTHOR AUTHOR'S ORGANIZ ATION 10/23/2021 [facility] DATE CREATED AUTHOR AUTHOR'S ORGANIZ ATION 08/03/2022 [facility] DATE CREATED AUTHOR AUTHOR'S ORGANIZ ATION 09/27/2024 [facility] DATE CREATED AUTHOR AUTHOR'S ORGANIZ ATION 10/17/2024 [facility] DATE CREATED AUTHOR AUTHOR'S ORGANIZ ATION 01/25/2025 [facility] Specialists EPIC DATE CREATED AUTHOR AUTHOR'S ORGANIZ ATION 01/27/2025 [facility] REASON FOR VISIT (unrecogniz ed section [...] Comments Ear Problem S/p Rt tube. 4 TBH Reason Comments Med Refill Lorazepam - has old script from 2022 but has found it does help her with having to take care of her who is sick Reason Comments Medicare Annual Wellness Visit Subsequen t Reason Comments Knee Pain Reason Comments Follow-up Reason Comments Gynecologic Exam Denies concerns. Den ies vaginal/bladder Reason Comments Knee Pain Complains of bilater al knee pain. Her last right knee injection was 10/15/24. Found it very helpful. Care Teams (unrecognized sec tion and content) Jewelry Mechanic Relationship Specialty Start Date End Date Sven Peng MD [address] [facility] [address] [place] [address] PCP - [employer] 04/21/20 Sven Peng MD [address] [facility] [address] [place] [address] PCP - General Internal Medicine 08/27/22 Jewelry Mechanic Relationship Specialty Start Date End Date vSen Peng MD [address] [facility] [address] [place] [address] PCP - [employer] 04/21/20 Sven Peng MD [address] [facility] [address] [place] [address] PCP - General Internal Medicine 08/27/22 Jewelry Mechanic Relationship Specialty Start Date End Date Sven Peng MD [address] [facility] [address] [place] [address] PCP - [employer] 04/21/20 Sven Peng MD [address] [facility] [address] [place] [address] PCP - General Internal Medicine 08/27/22 Jewelry Mechanic Relationship Specialty Start Date End Date Sven Peng MD [address] [facility] [address] [place] [address] PCP - [employer] 04/21/20 Sven Peng MD [address] [facility] [address] [place] [address] PCP - General Internal Medicine 08/27/22 Jewelry Mechanic Relationship Specialty Start Date End Date Sven Peng MD [address] [facility] [address] [place] [address] PCP - [employer] 04/21/20 Sven Peng MD [address] [facility] [address] [place] [address] PCP - General Internal Medicine 08/27/22 Jewelry Mechanic Relationship Specialty Start Date End Date Sven Peng MD [address] [facility] [address] [place] [address] PCP - [employer] 04/21/20 Sven Peng MD [address] [facility] [address] [place] [address] PCP - General Internal Medicine 08/27/22 Jewelry Mechanic Relationship Specialty Start Date End Date Sven Peng MD [address] [facility] [address] [place] [address] PCP - [employer] 04/21/20 Sven Peng MD [address] [facility] [address] [place] [address] PCP - General Internal Medicine 08/27/22 Jewelry Mechanic Relationship Specialty Start Date End Date Sven Peng MD [address] [facility] [address] [place] [address] PCP - [employer] 04/21/20 Sven Peng MD [address] [facility] [address] [place] [address] PCP - General Internal Medicine 08/27/22 Jewelry Mechanic Relationship Specialty Start Date End Date Sven Peng MD [address] [place] [address] PCP - [employer] 04/21/20 Sven Peng MD [address] [facility] [address] [place] [address] PCP - General Internal Medicine 08/27/22 Jewelry Mechanic Relationship Specialty Start Date End Date Sven Peng MD [address] [facility] [address] [place] [address] PCP - [employer] 04/21/20 Sven Peng MD [address] [facility] [address] [place] [address] PCP - General Internal Medicine 08/27/22 Jewelry Mechanic Relationship Specialty Start Date End Date Sven Peng MD [address] [facility] [address] [place] [address] PCP - [employer] 04/21/20 Sven Peng MD [address] [facility] [address] [place] [address] PCP - General Internal Medicine 08/27/22 Jewelry Mechanic Relationship Specialty Start Date End Date Sven Peng MD [address] [facility] [address] [place] [address] PCP - [employer] 04/21/20 Sven Peng MD [address] [place] [address] [place] [address] PCP - General Internal Medicine 08/27/22 Jewelry Mechanic Relationship Specialty Start Date End Date Sven Peng MD [address] [place] [address] PCP - [employer] 04/21/20 Sven Peng MD [address] [facility] [address] [place] [address] PCP - General Internal Medicine 08/27/22 Jewelry Mechanic Relationship Specialty Start Date End Date Sven Peng MD [address] [place] [address] PCP - [employer] 04/21/20 Sven Peng MD [address] [place] [address] PCP - General Internal Medicine 08/27/22 Jewelry Mechanic Relationship Specialty Start Date End Date Sven Peng MD [address] [place] [address] PCP - [employer] 04/21/20 Sven Peng MD [address] [place] [address] PCP - General Internal Medicine 08/27/22 Jewelry Mechanic Relationship Specialty Start Date End Date Sven Peng MD [address] [place] [address] PCP - [employer] 04/21/20 Sven Peng MD [address] [place] [address] PCP - General Internal Medicine 08/27/22 Jewelry Mechanic Relationship Specialty Start Date End Date Sven Peng MD [address] [place] [address] PCP - [employer] 04/21/20 Sven Peng MD [address] [place] [address] PCP - General Internal Medicine 08/27/22 Jewelry Mechanic Relationship Specialty Start Date End Date Sven Peng MD [address] [place] [address] PCP - [employer] 04/21/20 Sven Peng MD [address] [place] [address] PCP - General Internal Medicine 08/27/22 Jewelry Mechanic Relationship Specialty Start Date End Date Sven Peng MD [address] [place] [address] PCP - [employer] 04/21/20 Sven Peng MD [address] [place] [address] PCP - General Internal Medicine 08/27/22 Jewelry Mechanic Relationship Specialty Start Date End Date Sven Peng MD [address] [place] [address] PCP - General Internal Medicine 08/27/22 Joleen Courtney PA [address] [place] [address] PCP - [employer] 04/21/20 Jewelry Mechanic Relationship Specialty Start Date End Date Sven Peng MD [address] [place] [address] PCP - General Internal Medicine 08/27/22 Joleen Courtney PA [address] [place] [address] PCP - [employer] 04/21/20 Jewelry Mechanic Relationship Specialty Start Date End Date Sven Peng MD [address] [place] [address] PCP - General Internal Medicine 08/27/22 Joleen Courtney PA [address] [place] [address] PCP - [employer] 04/21/20 Jewelry Mechanic Relationship Specialty Start Date End Date Sven Peng MD [address] [place] [address] PCP - General Internal Medicine 08/27/22 Joleen Courtney PA [address] [facility] [address] [place] [address] [facility] 04/21/20 Jewelry Mechanic Relationship Specialty Start Date End Date Sven Peng MD [address] [facility] [address] [place] [address] PCP - General Internal Medicine 08/27/22 Joleen Courtney PA [address] [facility] [address] [place] [address] [facility] 04/21/20 FOR RECORDS PERTAINING TO PATIENTS WHO ARE [...] BE BASED ON THE PRIMARY CLINICAL RECORDS. [facility] [employer] [facility]. provides no warranty or guarantee of the accuracy or completeness of information in this document.
--- NOTE | 2025-01-27 09:52 | PM.CN ---
Consult Note: HPI Data of Consult Patient: known to practice within the last 3 years Consult date: 01/27/25 Requesting Physician: Mariaelena Romano NP Primary Care Provider: GERA GALEANO Consult Narrative Reason for consult: f/u Narrative: Teodora Daily a pleasant 74 year old female with chronic low back pain presents for evaluation and management. low back pain 2/10 increasing to 10/10 aching burning increasing with standing, walking, activity. pain improved with forward flexion and sitting. utilizing tylenol, motrin, baclofen 10mg BID PRN with mild relief. failed gabapentin, started on lyrica last visit but could not tolerate due to loss of bladder. ANGELLA 38%. pt recently underwent bilateral L3/4 TFESI and bilateral L4/5 TFESI with minimal relief per pt. denies falls or injury. pt has completed psychiatric evaluation for intracept at L3/4 as she has failed conservative therapy, numerous interventions including lumbar MBBs, RFAs, and TFESIs. Pt is a great candidate for intracept with signifcant modic changes noted on lumbar MRI. cc:: CC: Mariaelena Romano NP Review of Systems ROS Status of ROS 10 or more systems reviewed and unremarkable except as noted in history and below Musculoskeletal Reports: back pain PFSH PFS Medical History (Updated 09/30/24 @ 12:57 by Mariaelena Romano NP) Bowel obstruction ?K56.609 - Unspecified intestinal obstruction, unspecified as to partial versus complete obstruction (ICD-10) Dyspnea on exertion ?R06.09 - Other forms of dyspnea (ICD-10) Anemia ?D64.9 - Anemia, unspecified (ICD-10) Depression ?F32.A - Depression, unspecified (ICD-10) Anxiety ?F41.9 - Anxiety disorder, unspecified (ICD-10) Snores ?R06.83 - Snoring (ICD-10) COVID-19 ?U07.1 - COVID-19 (ICD-10) Migraine ?G43.909 - Migraine, unspecified, not intractable, without status migrainosus (ICD-10) IHSS (idiopathic hypertrophic subaortic stenosis) ?I42.1 - Obstructive hypertrophic cardiomyopathy (ICD-10) Knee tendinitis ?M76.899 - Other specified enthesopathies of unspecified lower limb, excluding foot (ICD-10) Hammertoe ?M20.40 - Other hammer toe(s) (acquired), unspecified foot (ICD-10) Arthritis ?M19.90 - Unspecified osteoarthritis, unspecified site (ICD-10) Reactive airway disease ?J45.909 - Unspecified asthma, uncomplicated (ICD-10) GERD (gastroesophageal reflux disease) ?K21.9 - Gastro-esophageal reflux disease without esophagitis (ICD-10) TIA (transient ischemic attack) ?G45.9 - Transient cerebral ischemic attack, unspecified (ICD-10) Left ventricular hypertrophy ?I51.7 - Cardiomegaly (ICD-10) Sjogrens syndrome ?M35.00 - Sjogren syndrome, unspecified (ICD-10) Hearing loss ?H91.90 - Unspecified hearing loss, unspecified ear (ICD-10) Keratitis ?H16.9 - Unspecified keratitis (ICD-10) Osteoarthritis of left hip ?M16.12 - Unilateral primary osteoarthritis, left hip (ICD-10) Primary osteoarthritis of both knees ?M17.0 - Bilateral primary osteoarthritis of knee (ICD-10) Osteoarthritis of spine with radiculopathy, lumbar region ?M47.26 - Other spondylosis with radiculopathy, lumbar region (ICD-10) Overactive bladder ?N32.81 - Overactive bladder (ICD-10) Osteopenia ?M85.80 - Other specified disorders of bone density and structure, unspecified site (ICD-10) Lumbosacral spondylosis without myelopathy ?M47.817 - Spondylosis without myelopathy or radiculopathy, lumbosacral region (ICD-10) Shoulder pain ?M25.519 - Pain in unspecified shoulder (ICD-10) Internal derangement of right shoulder ?M24.811 - Other specific joint derangements of right shoulder, not elsewhere classified (ICD-10) Heart palpitations ?R00.2 - Palpitations (ICD-10) Impaired glucose tolerance ?R73.02 - Impaired glucose tolerance (oral) (ICD-10) Dyspepsia ?R10.13 - Epigastric pain (ICD-10) Dry eye ?H04.129 - Dry eye syndrome of unspecified lacrimal gland (ICD-10) Decreased estrogen level ?E28.39 - Other primary ovarian failure (ICD-10) 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 - Chronic myringitis, unspecified ear (ICD-10) Tinnitus ?H93.19 - Tinnitus, unspecified ear (ICD-10) Edema, lower extremity ?R60.0 - Localized edema (ICD-10) Arthritis of right acromioclavicular joint ?M19.011 - Primary osteoarthritis, right shoulder (ICD-10) Allergic rhinitis ?J30.9 - Allergic rhinitis, unspecified (ICD-10) Dysfunction of right eustachian tube ?H69.91 - Unspecified Eustachian tube disorder, right ear (ICD-10) Sciatica ?M54.30 - Sciatica, unspecified side (ICD-10) Back pain ?M54.9 - Dorsalgia, unspecified (ICD-10) Herniated disc Osteoporosis ?M81.0 - Age-related osteoporosis without current pathological fracture (ICD-10) Osteoarthritis ?M19.90 - Unspecified osteoarthritis, unspecified site (ICD-10) Carpal tunnel syndrome ?G56.00 - Carpal tunnel syndrome, unspecified upper limb (ICD-10) Heart murmur ?R01.1 - Cardiac murmur, unspecified (ICD-10) Hypertrophic cardiomyopathy ?I42.2 - Other hypertrophic cardiomyopathy (ICD-10) HTN (hypertension) ?I10 - Essential (primary) hypertension (ICD-10) Surgical History S/P epidural steroid injection ?Z92.241 - Personal history of systemic steroid therapy (ICD-10) History of radiofrequency ablation (RFA) of nerve of lumbar spine ?Z98.890 - Other specified postprocedural states (ICD-10) History of cataract extraction with lens replacement H/O toe surgery ?Z98.890 - Other specified postprocedural states (ICD-10) S/P total hip arthroplasty ?Z96.649 - Presence of unspecified artificial hip joint (ICD-10) H/O tympanostomy ?Z98.890 - Other specified postprocedural states (ICD-10) H/O colonoscopy ?Z98.890 - Other specified postprocedural states (ICD-10) History of bunionectomy ?Z98.890 - Other specified postprocedural states (ICD-10) History of eyelid surgery ?Z98.890 - Other specified postprocedural states (ICD-10) S/P tonsillectomy and adenoidectomy ?Z90.89 - Acquired absence of other organs (ICD-10) S/P colon resection ?Z90.49 - Acquired absence of other specified parts of digestive tract (ICD-10) Hx of tonsillectomy ?Z90.89 - Acquired absence of other organs (ICD-10) History of bladder suspension procedure ?Z98.890 - Other specified postprocedural states (ICD-10) ?Z87.448 - Personal history of other diseases of urinary system (ICD-10) History of foot surgery ?Z98.890 - Other specified postprocedural states (ICD-10) History of hip replacement ?Z96.649 - Presence of unspecified artificial hip joint (ICD-10) History of colon resection ?Z90.49 - Acquired absence of other specified parts of digestive tract (ICD-10) History of hysterectomy ?Z90.710 - Acquired absence of both cervix and uterus (ICD-10) Family History Other Family history of heart disease Family history of hypertension Family history of stroke Idiopathic hypertrophic subaortic stenosis Social History Within the past year, how often did you have a drink containing alcohol: 2-3 times a week Smoking status: Former smoker Non-prescribed substance use: denies use Highest level of school completed/degree received: some college, no degree Little interest or pleasure in doing things: not at all Feeling down, depressed, or hopeless: not at all Meds Home Medications and Allergies Home Medications ?Medication ?Instructions ?Recorded ?Confirmed ?Type aspirin 81 mg capsule 81 mg PO BID 08/21/23 09/20/24 History cyclosporine 0.05 % eye drops 1 drp ophthalmic (eye) Q12H 08/21/23 09/20/24 History (Restasis MultiDose) fluticasone propionate 50 1 spray intranasal DAILY PRN 08/21/23 09/20/24 History mcg/actuation nasal allergy symptoms spray,suspension (24 Hour Allergy Relief) irbesartan 75 mg tablet 37.5 mg PO DAILY 08/21/23 09/20/24 History metoprolol succinate 25 mg 25 mg PO DAILY 08/21/23 09/20/24 History tablet,extended release 24 hr (Toprol XL) paroxetine HCl 20 mg tablet 20 mg PO DAILY 08/21/23 09/20/24 History baclofen 10 mg tablet 10 mg PO Q12H PRN muscle spasm 02/17/24 09/20/24 History loratadine-pseudoephedrine ER 10 1 tab PO Q24H PRN allergy symptoms 03/24/24 09/20/24 History mg-240 mg tablet,extended [id number] (Claritin-D 24 Hour) multivitamin (Daily Multi-Vitamin 1 tab PO DAILY 03/24/24 09/20/24 History tablet) baclofen 10 mg tablet 10 mg PO TID PRN muscle spasm #90 07/08/24 09/20/24 Rx tabs gabapentin 100 mg capsule 100 mg PO TID #90 caps 09/30/24 Rx baclofen 10 mg tablet 10 mg PO TID PRN muscle spasm #90 12/02/24 Rx tabs pregabalin 50 mg capsule (Lyrica) 50 mg PO BID #60 caps 12/02/24 Rx Allergies Allergy/AdvReac Type Severity Reaction Status Date / Time oxycodone Allergy Hives Verified 09/20/24 10:02 Sulfa (Sulfonamide Allergy Rash Verified 09/20/24 10:02 Antibiotics) Exam Constitutional Documenting provider has reviewed patient's vital signs: yes Common normals: no apparent distress, oriented x3, healthy appearing, alert and well nourished General appearance: cooperative HENMT Common normals: normocephalic, hearing grossly normal bilaterally and moist oral mucous membranes Head and scalp: normocephalic Eye Common normals: PERRL Pupil: PERRL Neck & C-Spine Common normals: full ROM General: normal visual inspection Chest Common normals: inspection of chest normal Respiratory Common normals: normal respiratory effort, no retractions and no use of accessory muscles Back & Pelvis Lumbar spine/lower back: lumbar ROM normal, pain with ROM and straight leg raise negative bilaterally; no lumbar spinal tenderness, no paraspinal muscle tenderness and no paraspinal muscle spasm Other: sensation intact BLE strength 5/5 in BLE increased pain on exam at L3/4 with forward flexion Extremity Common normals: normal to inspection and full ROM Neuro Common normals: oriented x3 Sensorium/orientation: alert Motor exam: strength 5/5 throughout and no movement abnormalities noted Psych Common normals: mental status grossly normal, thought process normal, cooperative, affect normal, speech normal and activity/motor behavior normal Speech: normal speech Thought process: normal thought process Results Imaging Lumbar MRI: Attestation: I have reviewed the pertinent imaging results. Radiologist's impression: For dictation purposes, the lowest complete disc space in the lumbar spine considered as L5-S1. There is normal physiologic lumbar lordosis and dextroscoliosis centered on L3-L4. The vertebral height is preserved. The conus medullaris is at the level of L2. No signal abnormality within the visualized spinal cord is noted. Levels of T11-T12, and T12-L1 are unremarkable. At the level of L1-L2, there are disc bulge with mild bilateral neuroforaminal narrowing and no canal stenosis. At the level of L2-L3, there are disc bulge with moderate bilateral neuroforaminal narrowing and moderate canal stenosis. At the level of L3-4, there are disc bulge with moderate right and severe left neuroforaminal narrowing and moderate canal stenosis. There are Modic type II changes at this level. At the level of L4-5, there are disc bulge with mild right and moderate left neuroforaminal narrowing and moderate canal stenosis. At the level of L5-S1, there are disc bulge with mild right neuroforaminal narrowing and no canal stenosis. Additional Findings Additional findings: If on a controlled substance or opioids, I have checked an [place] report on this patient and there are no aberrancies noted in the prescribing history.??If on a controlled substance or opioid a drug screen was completed and reviewed within the last year, and if there has not been a drug screen completed we ordered one today to monitor higher risk, state monitored pain medication use. As part of providing excellent, safe, comprehensive care, the following was completed at our patient's visit: 1. A medication reconciliation and review to ensure accurate knowledge of current/active medications, including asking our patients to inform us about any [id number] medications or herbal remedies/nutritional supplements/alternative remedies. 2. A review to specifically ensure our patients have had annual screening for screening for depression, screening for tobacco use, and screening for unhealthy alcohol use. For concerning screenings had a discussion with the patient, provided patient education, and recommended follow-up with primary care provider when appropriate. If patient noted with a risk of falling, they received education on strength, gait, and balance training to prevent future risk of falling. Portions of this note may have been carried over from the previous visit and updated as appropriate. Please note this office utilizes paper charting in addition to the electronic medical record. A list of current medications, vitals, and PMH is available there as the clinical staff outside of myself do not have access to [facility] charting during the clinic day operations. As part of providing quality comprehensive care the current medications, vitals, and PMH were reviewed in the paper chart. Assessment and Plan Assessment and Plan (1) Vertebrogenic pain: (2) Lumbar spondylosis: (3) Myalgia, other site: Plan The patient has had over 3 months of moderate to severe low back pain with functional impairment and inadequate response to conservative care including NSAIDS (unless there are contraindication such as concurrent blood thinners), multiple oral or topical pain medications, and home exercise program/physical therapy.? Patient has completed >6 weeks of guided home exercise program without relief of their symptoms.?no recent formal PT I have reviewed the imaging of the lumbar spine and no red flags were identified.? The imaging reveals radiographic findings consistent with vertebrogenic low back pain, lumbar stenosis with NC, and lumbar spondylosis The Oswestry Disability Index was completed, and the patient scored a 38%.? The patient noted the following:?? moderate to severe pain impacting sitting, standing, walking, lifting, sleeping, social life, travel 75 year old female with multifactorial low back pain, pt has failed to benefit from numerous interventional treatments including bilateral L3/4 and bilateral L5/S1 MBBs, bilateral L4/5 RFA, left superior gluteal RFA, bilateral L3/4 TFESI and bilateral L4/5 TFESI. Pt continues to endorse significant pain with standing and walking, now noting 90% pain in low back and 10% in LLE. pt pending ns consult in consideration of scs for lumbar stenosis with NC. pt would like to proceed with L3/4 intracept for vertebrogenic low back pain secondary to second degree modic changes under mac sedation with Dr Vega.
== END 2025-01-27 09:12 | disposition home or self-care (01) ==
LOC: PM 09:11
PROVIDERS: PCP Internal Medicine; Visit Provider Nurse Practitioner
DX: M54.89 Other dorsalgia (principal); M47.816 Spondylosis without myelopathy or radiculopathy, lumbar region; M79.18 Myalgia, other site
CPT/HCPCS: G0463